=== PATIENT | male | born 1950 | race Caucasian/White ===

== ENCOUNTER → 2016-06-16 | Outpatient (CLI) | payer MEDICAID, MEDICARE | LOC: RAD 13:48 | PROVIDERS: ATTEND Nurse Practitioner Adult Health | DX: R05 Cough (principal) | CPT/HCPCS: 71250 ==

== ENCOUNTER → 2016-09-30 | Outpatient (CLI) | payer MEDICARE ==
[2016-09-30 11:01] LABS: ABSOLUTE EOSINOPHILS # (AUTO) 0.1 10^3/uL (0.0-0.6); ABSOLUTE LYMPHOCYTES (AUTO) 3.4 10^3/uL (0.5-4.7); ABSOLUTE MONOCYTES (AUTO) 0.8 10^3/uL (0.1-1.4); ABSOLUTE NEUT (AUTO) 7.5 10^3/uL (1.7-8.2); BASOPHILS % (AUTO) 0.4 % (0-2); EOSINOPHILS % (AUTO) 0.7 % (0-6); HEMATOCRIT 51.8 % (37.9-51.0); HEMOGLOBIN 16.7 g/dL (13.5-17.0); HGB HCT DIFFERENCE -1.7; LYMPHOCYTES % (AUTO) 28.4 % (13-45); MEAN CORPUSCULAR HEMOGLOBIN 31.2 pg (27.0-33.4); MEAN CORPUSCULAR HGB CONC 32.2 g/dL (32.0-36.0); MEAN CORPUSCULAR VOLUME 97 fl (80-97); MONOCYTES % (AUTO) 6.9 % (3-13); RED BLOOD COUNT 5.35 10^6/uL (4.35-5.55); RED CELL DISTRIBUTION WIDTH 13.5 % (11.5-14.0); SEGMENTED NEUTROPHILS % (AUTO) 63.6 % (42-78); WHITE BLOOD COUNT 11.9 10^3/uL (4.0-10.5)
== END ==
LOC: OD 09:54
PROVIDERS: ATTEND Internal Medicine Pulmonary Disease
DX: R05 Cough (principal)
CPT/HCPCS: 36415; 85025

== ENCOUNTER 2016-10-05 21:17 | Observation (INO) | payer MEDICARE ==
[2016-10-05] MEDS ORDERED: MAGNESIUM SULFATE/D5W 100 ML IV PRN (21:55)
[2016-10-05] MEDS ORDERED: METHYLPREDNISOLONE INJ 125 MG/2 ML SDV IV ONE (21:55)
[2016-10-05] MEDS ORDERED: IPRATROPIUM/ALBUTEROL 0.5-2.5 MG/3 ML AMPUL NEB ONE ×3 (21:56)
--- NOTE | 2016-10-05 22:00 | ER Document Report ---
ED Respiratory Problem - General Chief Complaint: Shortness Of Breath Stated Complaint: SHORTNESS OF BREATH Time Seen by Provider: 10/05/16 21:49 Notes: Patient is a 66-year-old with a history of tobacco abuse and COPD that comes emergency department for increasing difficulty breathing, tightness in the chest , and cough worsening today. He wears 2 L nc at home at night and PRN during the day. Patient denies fever. Patient states that he has been taking breathing treatments at home without improvement. He denies chest pain, vomiting , abdominal pain. He comes from home. Only other past medical history reported is bladder cancer, not on chemotherapy. TRAVEL OUTSIDE OF THE [place] IN LAST 30 DAYS: No - Related Data Allergies/Adverse Reactions: No Known Allergies Allergy (Unverified 04/10/11 06:36) Past Medical History - General Information source: Patient - Social History Smoking Status: Current Every Day Smoker Smoking Education Provided: Yes - <3 min Drug Abuse: None Lives with: Family Family History: None - Past Medical History Cardiac Medical History: Reports: Hx Hypercholesterolemia Pulmonary Medical History: Reports: Hx Asthma, Hx Bronchitis, Hx COPD, Hx Pneumonia, Hx Sleep Apnea Denies: Hx Tuberculosis Renal/ Medical History: Reports: Hx Kidney Stones. Denies: Hx Peritoneal Dialysis GI Medical History: Reports: Hx Gastroesophageal Reflux Disease, Hx Hiatal Hernia, Hx Ulcer Musculoskeltal Medical History: Reports Hx Arthritis Psychiatric Medical History: Denies: Hx Depression Past Surgical History: Reports: Hx Appendectomy, Hx Cholecystectomy, Hx Genitourinary Surgery - removal of bladder cancer x2. Denies: Hx Pacemaker - Immunizations Hx Diphtheria, Pertussis, Tetanus Vaccination: Yes Hx Pneumococcal Vaccination: 05/16/11 Review of Systems - Review of Systems Constitutional: No symptoms reported EENT: No symptoms reported Cardiovascular: See HPI Respiratory: See HPI Gastrointestinal: No symptoms reported Genitourinary: No symptoms reported Male Genitourinary: No symptoms reported Musculoskeletal: No symptoms reported Skin: No symptoms reported Hematologic/Lymphatic: No symptoms reported Neurological/Psychological: No symptoms reported Physical Exam - Vital signs Vitals: Temp Pulse Resp BP Pulse Ox 98.2 F 104 H 22 H 124/90 H 98 10/05/16 21:31 10/05/16 21:31 10/05/16 21:31 10/05/16 21:31 10/05/16 21:31 Interpretation: Normal - General General appearance: Anxious In distress: Mild - HEENT Head: Normocephalic, Atraumatic Eyes: Normal Pupils: PERRL - Respiratory Respiratory status: Respiratory distress, Labored Chest status: Accessory muscle use, Prolonged expirations Breath sounds: Decreased air movement - very decreased bilaterally, Nonproductive cough, Rhonchi, Wheezing Chest palpation: Normal - Cardiovascular Rhythm: Regular, Tachycardia Heart sounds: Normal auscultation, S1 appreciated, S2 appreciated Murmur: No - Abdominal Inspection: Normal Distension: No distension Bowel sounds: Normal Tenderness: Nontender Organomegaly: No organomegaly - Back Back: Normal, Nontender - Extremities General upper extremity: Normal inspection, Nontender, Normal color, Normal ROM , Normal temperature General lower extremity: Normal inspection, Nontender, Normal color, Normal ROM , Normal temperature, Normal weight bearing. No: Abril's sign - Neurological Neuro grossly intact: Yes Cognition: Normal Orientation: AAOx4 Demetri Coma Scale Eye Opening: Spontaneous [place] Coma Scale Verbal: Oriented Demetri Coma Scale Motor: Obeys Commands [place] Coma Scale Total: 15 Speech: Normal Motor strength normal: LUE, RUE, LLE, RLE Sensory: Normal - Skin Skin Temperature: Warm Skin Moisture: Dry Skin Color: Normal Course - Re-evaluation Re-evalutation: Patient initially in mild respiratory distress with tachypnea, oxygen level at about 93% on 3 L, wheezing and rhonchi throughout lung garza. Patient with very labored breathing, using accessory muscles. Very decreased breath sounds bilaterally. After DuoNeb, magnesium, Solu-Medrol patient with some improvement but still has labored breathing on examination and actually appears to have increased tachypnea and distress. Patient placed on BiPAP therapy, will monitor closely. Breath sounds have improved, now moving air better. CBC unremarkable, chemistry unremarkable, CK-MB is somewhat elevated as well as CK, however his previous CK-MB was significantly more elevated. Chest x-ray with no pneumonia. Troponin negative. Venous blood gas is unremarkable. On BiPAP patient began to improve, eventually tachypnea and labored breathing completely resolved and patient became very comfortable. Discussed with Dr. Mckeon. Patient was discussed with Dr. Best, request cycled enzymes because of elevated CK-MB. CK-MB is downtrending. Patient will be admitted to the [facility] for telemetry. Patient is very agreeable with this, states he is uncomfortable going home. - Vital Signs Vital signs: Temp Pulse Resp BP Pulse Ox 98.2 F 104 H 20 112/86 H 97 10/05/16 21:31 10/05/16 21:31 10/06/16 03:01 10/06/16 03:01 10/06/16 04:45 - Laboratory Result Diagrams: 10/05/16 22:15 10/05/16 21:40 Laboratory results interpreted by me: 10/05/16 10/05/16 10/05/16 21:40 21:40 23:29 BUN 21 H Est GFR (Non-Af Amer) 59 L Creatine Kinase 260 H 239 H CK-MB (CK-2) 9.98 H 10/05/16 23:29 BUN Est GFR (Non-Af Amer) Creatine Kinase CK-MB (CK-2) 8.09 H Critical Care Note - Critical Care Note Total time excluding time spent on procedures (mins): 31 - respiratory distress , COPD exacerbation Comments: Please allow 31 minutes of critical care time for evaluation and treatment of patient with respiratory distress, COPD exacerbation. Treatment with DuoNeb's, Solu-Medrol, magnesium, oxygen, BiPAP therapy, multiple evaluations, consultation and admission to the hospital. Discharge - Discharge Clinical Impression: COPD exacerbation, Wheezing, Respiratory distress Disposition: ADMITTED OBSERVATION Admitting Provider: Hospitalist Unit Admitted: Telemetry
--- NOTE | 2016-10-05 22:04 | RADIOLOGY REPORT (SQ) ---
EXAM DESCRIPTION: CHEST PA/LAT COMPLETED DATE/TIME: 10/05/2016 9:48 pm REASON FOR STUDY: shortness of breath COMPARISON: 01/26/2016 NUMBER OF VIEWS: Two view. TECHNIQUE: Frontal and lateral radiographic views of the chest acquired. LIMITATIONS: None. FINDINGS: LUNGS AND PLEURA: Small nodular densities overlying the mid lung garza are stable in most likely prominent nipple shadows. There is hyperexpansion and flattening of the hemidiaphragms. MEDIASTINUM AND HILAR STRUCTURES: No masses. No contour abnormalities. HEART AND VASCULAR STRUCTURES: Heart normal in size and contour. No evidence for failure. BONES: No acute findings. HARDWARE: None in the chest. OTHER: No other significant finding. IMPRESSION: COPD. NO ACUTE RADIOGRAPHIC FINDING IN THE CHEST. TECHNICAL DOCUMENTATION: JOB ID: [id number] [employer]- All Rights Reserved
[2016-10-05 22:12] LABS: ALANINE AMINOTRANSFERASE 49 U/L (21-72); ALBUMIN 4.2 g/dL (3.5-5.0); ALKALINE PHOSPHATASE 89 U/L (38-126); ANION GAP 12 (5-19); ASPARTATE AMINO TRANSFERASE 33 U/L (17-59); BILIRUBIN,DIRECT 0.3 mg/dL (0.0-0.4); BILIRUBIN,TOTAL 0.7 mg/dL (0.2-1.3); BLOOD UREA NITROGEN 21 mg/dL (7-20); CALCIUM 9.9 mg/dL (8.4-10.2); CARBON DIOXIDE 30 mmol/L (22-30); CHLORIDE 102 mmol/L (98-107); CREATINE KINASE 260 U/L (55-170); CREATININE RESULT 1.23 mg/dL (0.52-1.25); GLUCOSE 94 mg/dL (75-110); POTASSIUM 4.5 mmol/L (3.6-5.0); SODIUM 143.7 mmol/L (137-145); TOTAL PROTEIN 7.1 g/dL (6.3-8.2)
[2016-10-05 22:24] LABS: CREATINE KINASE MB 9.98 ng/mL (<4.55)
[2016-10-05 22:25] LABS: TROPONIN I < 0.012 ng/mL
[2016-10-05 22:32] LABS: VENOUS BLOOD BASE EXCESS 3.3 mmol/L; VENOUS BLOOD HCO3 29.8 mmol/L (20-32); VENOUS BLOOD PCO2 51.9 mmHg (35-63); VENOUS BLOOD PH 7.38 (7.30-7.42)
[2016-10-05 22:33] LABS: ABSOLUTE BASOPHILS # (AUTO) 0.1 10^3/uL (0.0-0.2); ABSOLUTE EOSINOPHILS # (AUTO) 0.1 10^3/uL (0.0-0.6); ABSOLUTE LYMPHOCYTES (AUTO) 2.4 10^3/uL (0.5-4.7); ABSOLUTE MONOCYTES (AUTO) 0.8 10^3/uL (0.1-1.4); BASOPHILS % (AUTO) 0.6 % (0-2); EOSINOPHILS % (AUTO) 0.8 % (0-6); HEMOGLOBIN 15.9 g/dL (13.5-17.0); HGB HCT DIFFERENCE 0.7; LYMPHOCYTES % (AUTO) 25.9 % (13-45); MEAN CORPUSCULAR HEMOGLOBIN 31.7 pg (27.0-33.4); MEAN CORPUSCULAR HGB CONC 33.8 g/dL (32.0-36.0); MEAN CORPUSCULAR VOLUME 94 fl (80-97); MONOCYTES % (AUTO) 8.1 % (3-13); RED BLOOD COUNT 5.02 10^6/uL (4.35-5.55); RED CELL DISTRIBUTION WIDTH 13.2 % (11.5-14.0); SEGMENTED NEUTROPHILS % (AUTO) 64.6 % (42-78); WHITE BLOOD COUNT 9.3 10^3/uL (4.0-10.5)
[2016-10-06] MEDS ORDERED: LEVOFLOXACIN 750 MG/D5W RTU 150 ML IV ONE (00:02)
[2016-10-06 01:51] LABS: CREATINE KINASE MB 8.09 ng/mL (<4.55)
[2016-10-06 01:55] LABS: TROPONIN I < 0.012 ng/mL
[2016-10-06] MEDS ORDERED: LACTULOSE SYRUP 20 GM/30 ML UDCUP PO PRN (02:24)
[2016-10-06] MEDS ORDERED: GUAIFENESIN SYRP 200 MG/10 ML UDC PO PRN (02:24)
[2016-10-06] MEDS ORDERED: IPRATROPIUM/ALBUTEROL 0.5-2.5 MG/3 ML AMPUL NEB PRN (02:24)
[2016-10-06] MEDS ORDERED: HYDRALAZINE HCL INJ/PF 20 MG/1 ML SDV IV PRN (02:24)
[2016-10-06] MEDS ORDERED: NICOTINE 7 MG/24 HR PATCH.TD24 TD SCH (02:30)
[2016-10-06] MEDS ORDERED: FLUTICASONE NASAL SPRAY 50 MCG/SPRY 120 SPRAY/16 GM NASL SCH (03:00)
[2016-10-06] MEDS ORDERED: FLUTICASONE NASAL SPRAY 50 MCG/SPRY 120 SPRAY/16 GM NASL ONE (03:15)
[2016-10-06] MEDS ORDERED: BUDESONIDE/FORMOTEROL 160-4.5 MCG 60 PUFF/6 GM MDI IH SCH ×2 (03:15→18:00)
[2016-10-06] MEDS ORDERED: BUDESONIDE/FORMOTEROL 160-4.5 MCG 60 PUFF/6 GM MDI IH ONE ×2 (03:15→03:27)
[2016-10-06] MEDS ORDERED: FLUTICASONE NASAL SPRAY 50 MCG/SPRY 120 SPRAY/16 GM ONE (03:26)
[2016-10-06] MEDS ORDERED: NICOTINE 7 MG/24 HR PATCH.TD24 ONE (03:26)
[2016-10-06] MEDS: ACETAMINOPHEN 325 MG TABLET PO PRN ×2 (03:45→13:53)
--- NOTE | 2016-10-06 06:30 | PDOC H&P ---
History of Present Illness Admission Date/PCP: 10/06/16 02:24 Patient complains of: Shortness of breath History of Present Illness: MANI FLYNN is a 66 year old male with a past medical history of COPD, chronic bronchitis, tobacco dependence, bipolar disorder and chronic pain. He been in his usual state of health until approximately 24 hours prior to presentation with excessive nonproductive cough and shortness of breath prompting his evaluation in the emergency room where he felt to have a COPD exacerbation with early pneumonia he started on empiric antibiotics for the hospital for admission. Patient denies influenza or Pneumovax. Denies recent changes in medications, infectious contacts but admits persistent smoking. Denies chest pain palpitations nausea vomiting. Past Medical History Cardiac Medical History: Reports: Hyperlipidema Pulmonary Medical History: Reports: Asthma, Bronchitis, Chronic Obstructive Pulmonary Disease (COPD), Pneumonia, Sleep Apnea Denies: Tuberculosis GI Medical History: Reports: Gastroesophageal Reflux Disease, Hiatal Hernia Musculoskeltal Medical History: Reports: Arthritis Psychiatric Medical History: Reports: Attention Deficit Hyperactivity Disorder, Bipolar Disorder, Tobacco Dependency Denies: Depression Past Surgical History Past Surgical History: Reports: Appendectomy, Cholecystectomy Denies: Pacemaker Social History Information Source: Patient, [facility] Records Lives with: Family Smoking Status: Current Every Day Smoker Cigarettes Packs Per Day: 0.3 Number of Years Smokin Frequency of Alcohol Use: Occasional Hx Recreational Drug Use: No Hx Prescription Drug Abuse: No - Advance Directive Resuscitation Status: Full Code Family History Family History: COPD, Hypertension Parental Family History Reviewed: Yes Children Family History Reviewed: Yes Sibling(s) Family History Reviewed.: Yes Medication/Allergy Home Medications: Budesonide/Formoterol Fumarate [Symbicort HFA 160-4.5 mcg Inhaler 6 gm] 2 puff IH Q12H 04/10/11 Dextroamphetamine/Amphetamine [Adderall 30 mg Tablet] 30 mg PO DAILY 05/03/13 Albuterol Sulfate [Proair HFA Inhalation Aerosol 8.5 gm MDI] 2 puff IH Q4HP PRN #1 hfa.aer.ad 05/04/13 Ipratropium/Albuterol Sulfate [Combivent Respimat 4 gm Mdi] 1 puff IH Q8 #1 aer.w.adap 05/04/13 Levofloxacin [Levaquin 500 mg Tablet] 500 mg PO DAILY #0 tablet 05/13/13 Nicotine [Nicoderm 7 mg/24 Hr Transdermal Patch] 1 each TD DAILY #14 patch.td24 05/13/13 Prednisone [Deltasone 20 mg Tablet] 40 mg PO DAILY #7 tablet 05/13/13 Allergies/Adverse Reactions: No Known Allergies Allergy (Unverified 04/10/11 06:36) Review of Systems Constitutional: ABSENT: chills, fever(s), headache(s), weight gain, weight loss Eyes: ABSENT: visual disturbances Ears: ABSENT: hearing changes Cardiovascular: ABSENT: chest pain, dyspnea on exertion, edema, orthropnea, palpitations Respiratory: ABSENT: cough, hemoptysis Gastrointestinal: ABSENT: abdominal pain, constipation, diarrhea, hematemesis, hematochezia, nausea, vomiting Genitourinary: ABSENT: dysuria, hematuria Musculoskeletal: ABSENT: joint swelling Integumentary: ABSENT: rash, wounds Neurological: ABSENT: abnormal gait, abnormal speech, confusion, dizziness, focal weakness, syncope Psychiatric: ABSENT: anxiety, depression, homidical ideation, suicidal ideation Endocrine: ABSENT: cold intolerance, heat intolerance, polydipsia, polyuria Hematologic/Lymphatic: ABSENT: easy bleeding, easy bruising Physical Exam Vital Signs: Temp Pulse Resp BP Pulse Ox 97.8 F 88 20 130/85 H 96 10/06/16 04:50 10/06/16 04:50 10/06/16 04:50 10/06/16 04:50 10/06/16 04:50 Intake & Output 10/04/16 10/05/16 10/06/16 11:59 11:59 11:59 Intake Total 10 Balance 10 General appearance: PRESENT: cooperative, disheveled, mild distress, thin Head exam: PRESENT: atraumatic, normocephalic Eye exam: PRESENT: conjunctiva pink, EOMI, PERRLA. ABSENT: scleral icterus Ear exam: PRESENT: normal external ear exam Mouth exam: PRESENT: moist, tongue midline Neck exam: ABSENT: carotid bruit, JVD, lymphadenopathy, thyromegaly Respiratory exam: PRESENT: accessory muscle use, crackles, decreased breath sounds, prolonged expiratory phas, retraction, rhonchi, tachypnea. ABSENT: stridor, wheezes Cardiovascular exam: PRESENT: RRR. ABSENT: diastolic murmur, rubs, systolic murmur Pulses: PRESENT: normal dorsalis pedis pul GI/Abdominal exam: PRESENT: normal bowel sounds, soft. ABSENT: distended, guarding, mass, organolmegaly, rebound, tenderness Rectal exam: PRESENT: deferred Extremities exam: PRESENT: full ROM. ABSENT: calf tenderness, clubbing, pedal edema Neurological exam: PRESENT: alert, awake, oriented to person, oriented to place , oriented to time, oriented to situation, CN II-XII grossly intact. ABSENT: motor sensory deficit Psychiatric exam: PRESENT: appropriate affect, normal mood. ABSENT: homicidal ideation, suicidal ideation Skin exam: PRESENT: dry, intact, warm. ABSENT: cyanosis, rash Results Impressions: Chest X-Ray 10/05/16 21:34 IMPRESSION: COPD. NO ACUTE RADIOGRAPHIC FINDING IN THE CHEST. Assessment & Plan - Diagnosis (1) Pneumonia Is this a current diagnosis for this admission?: YesPlan: Acute problem. Patient has audible rhonchi at bedside with poor forced expiratory volume. He is admitted to a monitored bed with pneumonia care set empiric antibiotics and stress dose steroids. Follow-up CBC and consideration of CT chest for history of tobacco with risk of lung cancer and atypical pneumonia (2) Tobacco dependence Is this a current diagnosis for this admission?: YesPlan: Tobacco Dependence patient received tobacco cessation counseling and offered nicotine replacement options (3) COPD exacerbation Is this a current diagnosis for this admission?: YesPlan: Albuterol, Atrovent, flutter valve and incentive spirometry - Inpatient Certification Medical Necessity: Need Close Monitoring Due to Risk of Patient Decompensation
[2016-10-06] MEDS: METHYLPREDNISOLONE INJ 125 MG/2 ML SDV IV SCH ×3 (06:38→21:52)
[2016-10-06] MEDS: HEPARIN SOD (PORCINE) 5,000 UNIT/ML 1 ML SYRINGE SUBCUT SCH ×3 (06:42→21:50)
[2016-10-06 07:02] LABS: ABSOLUTE LYMPHOCYTES (AUTO) 0.4 10^3/uL (0.5-4.7); BASOPHILS % (AUTO) 0.1 % (0-2); HEMATOCRIT 45.2 % (37.9-51.0); HEMOGLOBIN 15.5 g/dL (13.5-17.0); HGB HCT DIFFERENCE 1.3; LYMPHOCYTES % (AUTO) 5.6 % (13-45); MEAN CORPUSCULAR HEMOGLOBIN 32.2 pg (27.0-33.4); MEAN CORPUSCULAR HGB CONC 34.3 g/dL (32.0-36.0); MEAN CORPUSCULAR VOLUME 94 fl (80-97); MONOCYTES % (AUTO) 0.7 % (3-13); RED BLOOD COUNT 4.82 10^6/uL (4.35-5.55); RED CELL DISTRIBUTION WIDTH 13.4 % (11.5-14.0); SEGMENTED NEUTROPHILS % (AUTO) 93.6 % (42-78); WHITE BLOOD COUNT 6.4 10^3/uL (4.0-10.5)
[2016-10-06 07:19] LABS: ANION GAP 12 (5-19); BLOOD UREA NITROGEN 21 mg/dL (7-20); CALCIUM 9.4 mg/dL (8.4-10.2); CARBON DIOXIDE 24 mmol/L (22-30); CHLORIDE 103 mmol/L (98-107); GLUCOSE 146 mg/dL (75-110); SODIUM 138.6 mmol/L (137-145)
[2016-10-06 07:20] LABS: POTASSIUM 4.7 mmol/L (3.6-5.0)
--- NOTE | 2016-10-06 07:52 | EKG REPORT ---
SEVERITY:- OTHERWISE NORMAL ECG - SINUS RHYTHM BORDERLINE RIGHT AXIS DEVIATION : Confirmed by: Phil De Leon MD 06-Oct-2016 07:52:12
[2016-10-06] MEDS: IPRATROPIUM/ALBUTEROL 0.5-2.5 MG/3 ML AMPUL NEB SCH ×3 (09:06→20:21)
[2016-10-06] MEDS: FLUTICASONE NASAL SPRAY 50 MCG/SPRY 120 SPRAY/16 GM NASL SCH ×2 (09:42→21:52)
[2016-10-06] MEDS: NICOTINE 7 MG/24 HR PATCH.TD24 TD SCH (09:42)
[2016-10-06] MEDS: GUAIFENESIN 600 MG TABLET.SA PO SCH ×2 (09:42→21:52)
[2016-10-06] MEDS: BUDESONIDE/FORMOTEROL 160-4.5 MCG 60 PUFF/6 GM MDI IH SCH ×2 (09:48→18:35)
[2016-10-06] MEDS ORDERED: FUROSEMIDE 20 MG TABLET PO PRN (11:49)
[2016-10-06] MEDS ORDERED: MONTELUKAST SODIUM 10 MG TABLET PO SCH (18:00)
[2016-10-06] MEDS ORDERED: LEVOFLOXACIN 750 MG/D5W RTU 750 MG/150 ML RTUPB IV SCH (22:00)
[2016-10-07] MEDS: IPRATROPIUM/ALBUTEROL 0.5-2.5 MG/3 ML AMPUL NEB SCH ×2 (01:21→08:48)
[2016-10-07 05:12] LABS: HEMATOCRIT 43.1 % (37.9-51.0); HEMOGLOBIN 14.5 g/dL (13.5-17.0); HGB HCT DIFFERENCE 0.4; MEAN CORPUSCULAR HEMOGLOBIN 31.5 pg (27.0-33.4); MEAN CORPUSCULAR HGB CONC 33.7 g/dL (32.0-36.0); MEAN CORPUSCULAR VOLUME 94 fl (80-97); RED BLOOD COUNT 4.61 10^6/uL (4.35-5.55); RED CELL DISTRIBUTION WIDTH 13.1 % (11.5-14.0)
[2016-10-07 05:20] LABS: ANION GAP 11 (5-19); BLOOD UREA NITROGEN 19 mg/dL (7-20); CALCIUM 9.8 mg/dL (8.4-10.2); CARBON DIOXIDE 24 mmol/L (22-30); CHLORIDE 107 mmol/L (98-107); CREATININE RESULT 0.81 mg/dL (0.52-1.25); GLUCOSE 135 mg/dL (75-110); POTASSIUM 4.5 mmol/L (3.6-5.0); SODIUM 141.5 mmol/L (137-145)
[2016-10-07] MEDS: METHYLPREDNISOLONE INJ 125 MG/2 ML SDV IV SCH (05:24)
[2016-10-07] MEDS: HEPARIN SOD (PORCINE) 5,000 UNIT/ML 1 ML SYRINGE SUBCUT SCH (05:24)
[2016-10-07] MEDS ORDERED: BUDESONIDE/FORMOTEROL 160-4.5 MCG 60 PUFF/6 GM MDI IH SCH (06:00)
[2016-10-07 06:08] LABS: BAND NEUTROPHILS % (MANUAL) 1 % (3-5); BASOPHILS % (MANUAL) 0 % (0-2); EOSINOPHILS % (MANUAL) 0 % (0-6); LYMPHOCYTES % (MANUAL) 2 % (13-45); TOTAL CELLS COUNTED 100
[2016-10-07 06:09] LABS: OVALOCYTES SLIGHT; POIKILOCYTOSIS SLIGHT; TOXIC GRANULATION SLIGHT; TOXIC VACUOLATION PRESENT
[2016-10-07 07:05] LABS: WHITE BLOOD COUNT 19.9 10^3/uL (4.0-10.5)
[2016-10-07 07:48] VITALS: BP 108/68
[2016-10-07] MEDS: GUAIFENESIN 600 MG TABLET.SA PO SCH (09:09)
[2016-10-07] MEDS: FLUTICASONE NASAL SPRAY 50 MCG/SPRY 120 SPRAY/16 GM NASL SCH (09:09)
[2016-10-07] MEDS: NICOTINE 7 MG/24 HR PATCH.TD24 TD SCH (09:10)
[2016-10-07] MEDS ORDERED: ASPIRIN 81 MG TABLET, ENT COATED PO SCH (10:00)
[2016-10-07] MEDS ORDERED: PREDNISONE 20 MG TABLET PO SCH (10:00)
--- NOTE | 2016-10-07 15:25 | PDOC DISCHARGE SUMMARY ---
General - Admit/Disc Date/PCP Admission Date/Primary Care Provider: 10/06/16 02:24 Discharge Date: 10/07/16 - Discharge Diagnosis (1) COPD exacerbation Is this a current diagnosis for this admission?: YesSummary: Continue Levaquin daily for the next 5 days. Prednisone 20 mg twice daily for the next 5 days. The patient was counseled on the need to not smoke. (2) Wheezing Is this a current diagnosis for this admission?: YesSummary: Resolved (3) Tobacco dependence Is this a current diagnosis for this admission?: YesSummary: Counseled. He has no desire to quit smoking. (5) Respiratory distress Is this a current diagnosis for this admission?: YesSummary: Initially on presentation. Resolved quickly with IV steroids and nebulizer treatments - Additional Information Resuscitation Status: Full Code Discharge Diet: Regular Discharge Activity: Activity As Tolerated, Balance Activity w/Rest, Keep Legs Elevated Home Medications: Albuterol Sulfate [Proair HFA] 2 puff IH Q4HP PRN 10/06/16 Albuterol Sulfate [Ventolin 0.083% Neb 2.5 mg/3 mL Ampul] 3 ml NEB RTQ4HP PRN Aspirin [Adult Low Dose Aspirin EC] 81 mg PO DAILY 10/06/16 Budesonide/Formoterol Fumarate [Symbicort HFA 160-4.5 mcg Inhaler 6 gm] 2 puff IH BID 10/06/16 Dextroamphetamine/Amphetamine [Adderall 20 mg Tablet] 20 mg PO NOON 10/06/16 Dextroamphetamine/Amphetamine [Adderall XR 25 mg Capsule] 25 mg PO QAM 10/06/16 Furosemide [Lasix 20 mg Tablet] 20 mg PO QAMP PRN 10/06/16 Montelukast Sodium [Singulair 10 mg Tablet] 10 mg PO QPM 10/06/16 Gabapentin 300 mg PO TID #90 capsule 10/07/16 Levofloxacin [Levaquin 750 mg Tablet] 750 mg PO DAILY #5 tablet 10/07/16 Prednisone [Deltasone] 20 mg PO BID #10 tablet 10/07/16 History of Present Illness Patient complains of: Cough, Shortness of breath and wheezing History of Present Illness: MANI FLYNN is a 66 year old male with a past medical history of COPD, chronic bronchitis, tobacco dependence, bipolar disorder and chronic pain. He been in his usual state of health until approximately 24 hours prior to presentation with excessive nonproductive cough and shortness of breath prompting his evaluation in the emergency room where he felt to have a COPD exacerbation with early pneumonia he started on empiric antibiotics for the hospital for admission. Patient denies influenza or Pneumovax. Denies recent changes in medications, infectious contacts but admits persistent smoking. Denies chest pain palpitations nausea vomiting. Hospital Course Hospital Course: Patient was admitted to telemetry. He was started on broad-spectrum IV antibiotics, steroids and nebulizer treatments. His wheezing improved quickly with IV steroids and nebulizers. Chest x-ray showed no infiltrates or effusions. He had no leukocytosis. Will be weaned off oxygen quickly. This morning his wheezing is resolved. Oxygen saturation on room air is 94%. He is requesting to be discharged home. He was counseled on need to quit smoking. He states the present time he has no interest in doing so. Physical Exam Vital Signs: Temp Pulse Resp BP Pulse Ox 97.3 F 83 20 108/68 94 10/07/16 10:38 10/07/16 10:38 10/07/16 10:38 10/07/16 10:38 10/07/16 10:38 Intake & Output 10/06/16 10/07/16 10/08/16 06:59 06:59 06:59 Intake Total 370 1446 Output Total 1 Balance 370 1445 Weight 81.1 kg 80.3 kg General appearance: PRESENT: no acute distress, well-developed, well-nourished Head exam: PRESENT: atraumatic, normocephalic Eye exam: PRESENT: conjunctiva pink, EOMI, PERRLA. ABSENT: scleral icterus Ear exam: PRESENT: normal external ear exam Mouth exam: PRESENT: moist, tongue midline Neck exam: ABSENT: carotid bruit, JVD, lymphadenopathy, thyromegaly Respiratory exam: PRESENT: rhonchi, symmetrical, unlabored Cardiovascular exam: PRESENT: RRR. ABSENT: diastolic murmur, rubs, systolic murmur Pulses: PRESENT: normal dorsalis pedis pul Vascular exam: PRESENT: normal capillary refill GI/Abdominal exam: PRESENT: normal bowel sounds, soft. ABSENT: distended, guarding, mass, organolmegaly, rebound, tenderness Rectal exam: PRESENT: deferred Extremities exam: PRESENT: full ROM. ABSENT: calf tenderness, clubbing, pedal edema Musculoskeletal exam: PRESENT: ambulatory, full ROM, normal inspection Neurological exam: PRESENT: alert, awake, oriented to person, oriented to place , oriented to time, oriented to situation, CN II-XII grossly intact. ABSENT: motor sensory deficit Psychiatric exam: PRESENT: appropriate affect, normal mood. ABSENT: homicidal ideation, suicidal ideation Skin exam: PRESENT: dry, intact, warm. ABSENT: cyanosis, rash Results Laboratory Results: 10/07/16 04:39 10/07/16 04:39 10/07/16 10/07/16 04:39 04:39 WBC 19.9 H D RBC 4.61 Hgb 14.5 Hct 43.1 MCV 94 MCH 31.5 MCHC 33.7 RDW 13.1 Plt Count 162 Seg Neutrophils % Not Reportable Lymphocytes % Not Reportable Monocytes % Not Reportable Eosinophils % Not Reportable Basophils % Not Reportable Absolute Neutrophils Not Reportable Absolute Lymphocytes Not Reportable Absolute Monocytes Not Reportable Absolute Eosinophils Not Reportable Absolute Basophils Not Reportable Sodium 141.5 Potassium 4.5 Chloride 107 Carbon Dioxide 24 Anion Gap 11 BUN 19 Creatinine 0.81 Est GFR ( Amer) > 60 Est GFR (Non-Af Amer) > 60 Glucose 135 H Calcium 9.8 Impressions: Chest X-Ray 10/05/16 21:34 IMPRESSION: COPD. NO ACUTE RADIOGRAPHIC FINDING IN THE CHEST. Qualifiers PATEINT BEING DISCHARGED WITH ANY OF THE FOLLOWING DIAGNOSIS?: No Plan Discharge Plan: Home with Time Spent: Less than 30 Minutes
== END 2016-10-07 11:14 | disposition home or self-care (01) ==
LOC: ER 21:17 → EH 10-06 02:24 → UNDOADMOB 10-06 02:31 → EH 10-06 02:31 → 3W 10-06 04:44 → 4S 10-07 02:04
PROVIDERS: ADMIT Internal Medicine; ATTEND Internal Medicine
DX: J44.1 Chronic obstructive pulmonary disease with (acute) exacerbation (principal); R06.00 Dyspnea, unspecified; F17.210 Nicotine dependence, cigarettes, uncomplicated; Z71.6 Tobacco abuse counseling; F90.9 Attention-deficit hyperactivity disorder, unspecified type; Z79.899 Other long term (current) drug therapy; Z79.82 Long term (current) use of aspirin; Z79.52 Long term (current) use of systemic steroids; Z90.49 Acquired absence of other specified parts of digestive tract; Z82.49 Family history of ischemic heart disease and other diseases of the circulatory system; Z82.5 Family history of asthma and other chronic lower respiratory diseases; Z99.81 Dependence on supplemental oxygen; Z85.51 Personal history of malignant neoplasm of bladder
CPT/HCPCS: 93005; 99291; 96375; 96365; 36415 ×3; 87040; 82553 ×2; 82550 ×2; 85025 ×3; 80048 ×2; 80053; 84484 ×2; 82803; 83880; 71020; 94799; 93010; 94660; 94667; 94668 ×2; 94640 ×2; G0378 ×3; A9270 ×11; J1644 ×2; J3490 ×5; J2930 ×3; J3475; J1956; J7512; J7620

== ENCOUNTER 2017-01-16 20:50 | Inpatient (IN) | payer MEDICARE ==
[2017-01-16] MEDS ORDERED: IPRATROPIUM/ALBUTEROL 0.5-2.5 MG/3 ML AMPUL NEB ONE (20:53)
[2017-01-16] MEDS ORDERED: METHYLPREDNISOLONE INJ 125 MG/2 ML SDV IV ONE (20:53)
[2017-01-16] MEDS: ALBUTEROL SULFATE 0.083% NEB 2.5 MG/3 ML AMPUL NEB SCH (21:00)
[2017-01-16 21:12] LABS: ABSOLUTE BASOPHILS # (AUTO) 0.1 10^3/uL (0.0-0.2); ABSOLUTE EOSINOPHILS # (AUTO) 0.1 10^3/uL (0.0-0.6); ABSOLUTE LYMPHOCYTES (AUTO) 2.8 10^3/uL (0.5-4.7); ABSOLUTE MONOCYTES (AUTO) 0.5 10^3/uL (0.1-1.4); ABSOLUTE NEUT (AUTO) 3.6 10^3/uL (1.7-8.2); BASOPHILS % (AUTO) 1.3 % (0-2); EOSINOPHILS % (AUTO) 1.4 % (0-6); HEMATOCRIT 45.2 % (37.9-51.0); HEMOGLOBIN 15.6 g/dL (13.5-17.0); HGB HCT DIFFERENCE 1.6; LYMPHOCYTES % (AUTO) 39.1 % (13-45); MEAN CORPUSCULAR HEMOGLOBIN 32.2 pg (27.0-33.4); MEAN CORPUSCULAR HGB CONC 34.5 g/dL (32.0-36.0); MEAN CORPUSCULAR VOLUME 94 fl (80-97); MONOCYTES % (AUTO) 7.5 % (3-13); RED BLOOD COUNT 4.83 10^6/uL (4.35-5.55); RED CELL DISTRIBUTION WIDTH 13.2 % (11.5-14.0); SEGMENTED NEUTROPHILS % (AUTO) 50.7 % (42-78); WHITE BLOOD COUNT 7.2 10^3/uL (4.0-10.5)
[2017-01-16 21:13] LABS: VENOUS BLOOD BASE EXCESS 6.4 mmol/L; VENOUS BLOOD HCO3 34.6 mmol/L (20-32); VENOUS BLOOD PCO2 64.3 mmHg (35-63); VENOUS BLOOD PH 7.35 (7.30-7.42)
--- NOTE | 2017-01-16 21:13 | ER Document Report ---
ED Respiratory Problem - General Chief Complaint: Breathing Difficulty Stated Complaint: DIFFICULTY BREaTHING Time Seen by Provider: 01/16/17 21:07 Mode of Arrival: Ambulatory Information source: Patient TRAVEL OUTSIDE OF THE [place] IN LAST 30 DAYS: No - HPI Patient complains to provider of: COPD, Short of breath Onset: This morning Duration: Continuous Quality of pain: No pain Severity: Moderate Context: Hx COPD Short of Breath: Moderate Sputum amount: None At home treatment: Bronchodilators, Oxygen Associated symptoms: Cough - not much more than usual. denies: Chills, Fever Similar symptoms previously: Yes - NOT RECENT Recently seen / treated by doctor: No Notes: SAYS HE'S BEEN COMOPLIANT W/ ALL MEDS - Related Data Allergies/Adverse Reactions: No Known Allergies Allergy (Unverified 04/10/11 06:36) Past Medical History - General Information source: Patient, Relative - Social History Smoking Status: Former Smoker Cigarette use (# per day): No Chew tobacco use (# tins/day): No Smoking Education Provided: No Frequency of alcohol use: Occasional Drug Abuse: None Lives with: Family Family History: COPD, Hypertension - Past Medical History Cardiac Medical History: Reports: Hx Hypercholesterolemia Pulmonary Medical History: Reports: Hx Asthma, Hx Bronchitis, Hx COPD, Hx Pneumonia, Hx Sleep Apnea Denies: Hx Tuberculosis Renal/ Medical History: Reports: Hx Kidney Stones. Denies: Hx Peritoneal Dialysis GI Medical History: Reports: Hx Gastroesophageal Reflux Disease, Hx Hiatal Hernia, Hx Ulcer Musculoskeltal Medical History: Reports Hx Arthritis Psychiatric Medical History: Reports: Hx Attention Deficit Hyperactivity Disorder, Hx Bipolar Disorder Denies: Hx Depression Past Surgical History: Reports: Hx Appendectomy, Hx Cholecystectomy, Hx Genitourinary Surgery - removal of bladder cancer x2. Denies: Hx Pacemaker - Immunizations Hx Diphtheria, Pertussis, Tetanus Vaccination: Yes Hx Pneumococcal Vaccination: 05/16/11 Review of Systems - Review of Systems Constitutional: No symptoms reported. denies: Chills, Fever EENT: No symptoms reported Cardiovascular: No symptoms reported Respiratory: See HPI Gastrointestinal: No symptoms reported Musculoskeletal: No symptoms reported Skin: No symptoms reported Neurological/Psychological: No symptoms reported Physical Exam - Vital signs Vitals: Temp Pulse Resp BP Pulse Ox 97.7 F 109 H 26 H 154/87 H 85 L 01/16/17 20:51 01/16/17 20:51 01/16/17 20:51 01/16/17 20:51 01/16/17 20:51 Interpretation: Hypertensive, Tachycardic, Hypoxic, Tachypneic - General General appearance: Alert In distress: Mild - HEENT Head: Normocephalic Eyes: Normal Conjunctiva: Normal Ears: Normal Nasal: Normal Mouth/Lips: Normal Mucous membranes: Normal - Respiratory Respiratory status: Respiratory distress Chest status: Nontender Breath sounds: Wheezing - MODERATE, EXP. - Cardiovascular Rhythm: Regular, Tachycardia Heart sounds: Normal auscultation Murmur: No - Abdominal Inspection: Normal Distension: No distension - Extremities General upper extremity: Normal inspection General lower extremity: Normal inspection. No: Edema - Neurological Neuro grossly intact: Yes Cognition: Normal Orientation: AAOx4 - Psychological Associated symptoms: Normal affect, Normal mood - Skin Skin Temperature: Warm Skin Moisture: Dry Skin Color: Normal Skin Turgor: Elastic Course - Vital Signs Vital signs: Temp Pulse Resp BP Pulse Ox 97.7 F 89 20 139/100 H 99 01/16/17 20:52 01/16/17 21:42 01/16/17 21:42 01/16/17 21:09 01/16/17 21:09 - Laboratory Result Diagrams: 01/16/17 21:01 01/16/17 21:01 Laboratory results interpreted by me: 01/16/17 01/16/17 01/16/17 21:01 21:01 21:01 VBG pCO2 64.3 H VBG HCO3 34.6 H Glucose 137 H Creatine Kinase 183 H CK-MB (CK-2) 6.98 H - Diagnostic Test Radiology reviewed: Image reviewed, Reports reviewed - EKG Interpretation by Me EKG shows normal: Sinus rhythm Rate: Tachycardia [place]/QRS: Right axis deviation, RBBB - INCOMPLETE When compared to previous EKG there are: Previous EKG unavailable - Consults DR. DRISCOLL Time consulted: 22:26 Consulted provider: will come to ER Discharge - Discharge Clinical Impression: COPD exacerbation Condition: Fair Disposition: ADMITTED INPATIENT Admitting Provider: Hospitalist Unit Admitted: Telemetry
[2017-01-16 21:26] LABS: ALANINE AMINOTRANSFERASE 31 U/L (21-72); ALBUMIN 4.2 g/dL (3.5-5.0); ALKALINE PHOSPHATASE 78 U/L (38-126); ANION GAP 14 (5-19); ASPARTATE AMINO TRANSFERASE 26 U/L (17-59); BILIRUBIN,DIRECT 0.3 mg/dL (0.0-0.4); BILIRUBIN,TOTAL 0.4 mg/dL (0.2-1.3); BLOOD UREA NITROGEN 16 mg/dL (7-20); CALCIUM 9.6 mg/dL (8.4-10.2); CARBON DIOXIDE 29 mmol/L (22-30); CHLORIDE 99 mmol/L (98-107); CREATINE KINASE 183 U/L (55-170); GLUCOSE 137 mg/dL (75-110); POTASSIUM 3.9 mmol/L (3.6-5.0); SODIUM 142.3 mmol/L (137-145); TOTAL PROTEIN 6.8 g/dL (6.3-8.2)
[2017-01-16 21:39] LABS: CREATINE KINASE MB 6.98 ng/mL (<4.55)
[2017-01-16 21:40] LABS: TROPONIN I < 0.012 ng/mL
--- NOTE | 2017-01-16 21:47 | RADIOLOGY REPORT (SQ) ---
EXAM DESCRIPTION: CHEST SINGLE VIEW COMPLETED DATE/TIME: 01/16/2017 9:38 pm REASON FOR STUDY: respiratory distress COMPARISON: 10/05/2016. NUMBER OF VIEWS: One view. TECHNIQUE: Single frontal radiographic view of the chest acquired. LIMITATIONS: None. FINDINGS: LUNGS AND PLEURA: No opacities, masses or pneumothorax. No pleural effusion. Attenuated bl ood vessels and flattened sakina-diaphragms. MEDIASTINUM AND HILAR STRUCTURES: No masses. Contour normal. HEART AND VASCULAR STRUCTURES: Heart normal in size. Normal vasculature. BONES: No acute findings. HARDWARE: None in the chest. OTHER: No other significant finding. IMPRESSION: COPD. NO ACUTE RADIOGRAPHIC FINDING IN THE CHEST. TECHNICAL DOCUMENTATION: JOB ID: [id number] [employer]- All Rights Reserved
[2017-01-16] MEDS ORDERED: DILTIAZEM HCL 60 MG TABLET PO ONE (22:34)
[2017-01-16] MEDS ORDERED: ACETAMINOPHEN 325 MG TABLET PO PRN (22:35)
[2017-01-16] MEDS ORDERED: IPRATROPIUM/ALBUTEROL 0.5-2.5 MG/3 ML AMPUL NEB PRN (22:35)
[2017-01-16] MEDS ORDERED: CHLORPHENIRAMINE MALEATE 4 MG TABLET PO ONE (22:38)
[2017-01-16] MEDS ORDERED: AZITHROMYCIN INJ 500 MG VIAL IV PRN (22:52)
--- NOTE | 2017-01-16 23:30 | EKG REPORT ---
SEVERITY:- BORDERLINE ECG - SINUS TACHYCARDIA BORDERLINE RIGHT AXIS DEVIATION BORDERLINE INFERIOR Q WAVES : Confirmed by: Giselle Martinez 16-Jan-2017 23:29:16
[2017-01-16] MEDS ORDERED: CHLORPHENIRAMINE MALEATE 4 MG TABLET ONE (23:56)
[2017-01-16] MEDS ORDERED: FLUTICASONE NASAL SPRAY 50 MCG/SPRY 120 SPRAY/16 GM ONE (23:57)
[2017-01-17] MEDS: IPRATROPIUM/ALBUTEROL 0.5-2.5 MG/3 ML AMPUL NEB SCH ×2 (01:33→08:08)
[2017-01-17] MEDS: GUAIFENESIN SYRP 200 MG/10 ML UDC PO PRN ×3 (01:51→19:54)
--- NOTE | 2017-01-17 04:40 | PDOC H&P ---
History of Present Illness Admission Date/PCP: 01/16/17 22:35 Patient complains of: Shortness of breath History of Present Illness: MANI FLYNN is a 66 year old male with a past medical history of home oxygen dependent COPD, chronic bronchitis, tobacco dependence, bipolar disorder and chronic pain. He been in his usual state of health until approximately 48 hours prior to presentation with excessive nonproductive cough and shortness of breath prompting evaluation in the emergency room. He is found to have hypertension, tachycardia, tachypnea, hypoxia, hypercapnia bilateral wheezing and rhonchi. He started on empiric antibiotics steroids albuterol and Atrovent referred to the hospitalist for admission. Patient denies chest pain nausea or vomiting, URI or GERD, he admits to persistent tobacco abuse. Past Medical History Cardiac Medical History: Reports: Hyperlipidema Pulmonary Medical History: Reports: Asthma, Bronchitis, Chronic Obstructive Pulmonary Disease (COPD), Pneumonia, Sleep Apnea Denies: Tuberculosis GI Medical History: Reports: Gastroesophageal Reflux Disease, Hiatal Hernia Musculoskeltal Medical History: Reports: Arthritis Psychiatric Medical History: Reports: Attention Deficit Hyperactivity Disorder, Bipolar Disorder Denies: Depression Past Surgical History Past Surgical History: Reports: Appendectomy, Cholecystectomy Denies: Pacemaker Social History Lives with: Family Smoking Status: Current Every Day Smoker Cigarettes Packs Per Day: 0.5 Number of Years Smokin Frequency of Alcohol Use: Heavy Hx Recreational Drug Use: No Drugs: None Hx Prescription Drug Abuse: No - Advance Directive Resuscitation Status: Full Code Family History Family History: COPD, Hypertension Parental Family History Reviewed: Yes Children Family History Reviewed: Yes Sibling(s) Family History Reviewed.: Yes Medication/Allergy Home Medications: Albuterol Sulfate [Proair HFA] 2 puff IH Q4HP PRN 10/06/16 Albuterol Sulfate [Ventolin 0.083% Neb 2.5 mg/3 mL Ampul] 3 ml NEB RTQ4HP PRN Aspirin [Adult Low Dose Aspirin EC] 81 mg PO DAILY 10/06/16 Budesonide/Formoterol Fumarate [Symbicort HFA 160-4.5 mcg Inhaler 6 gm] 2 puff IH BID 10/06/16 Dextroamphetamine/Amphetamine [Adderall 20 mg Tablet] 20 mg PO NOON 10/06/16 Dextroamphetamine/Amphetamine [Adderall XR 25 mg Capsule] 25 mg PO QAM 10/06/16 Montelukast Sodium [Singulair 10 mg Tablet] 10 mg PO QPM 10/06/16 Gabapentin 300 mg PO TID #90 capsule 10/07/16 Allergies/Adverse Reactions: No Known Allergies Allergy (Verified 01/16/17 23:25) Review of Systems Constitutional: ABSENT: chills, fever(s), headache(s), weight gain, weight loss Eyes: ABSENT: visual disturbances Ears: ABSENT: hearing changes Cardiovascular: ABSENT: chest pain, dyspnea on exertion, edema, orthropnea, palpitations Respiratory: ABSENT: cough, hemoptysis Gastrointestinal: ABSENT: abdominal pain, constipation, diarrhea, hematemesis, hematochezia, nausea, vomiting Genitourinary: ABSENT: dysuria, hematuria Musculoskeletal: ABSENT: joint swelling Integumentary: ABSENT: rash, wounds Neurological: ABSENT: abnormal gait, abnormal speech, confusion, dizziness, focal weakness, syncope Psychiatric: ABSENT: anxiety, depression, homidical ideation, suicidal ideation Endocrine: ABSENT: cold intolerance, heat intolerance, polydipsia, polyuria Hematologic/Lymphatic: ABSENT: easy bleeding, easy bruising Physical Exam Vital Signs: Temp Pulse Resp BP Pulse Ox 98.2 F 78 18 119/79 95 01/17/17 03:40 01/17/17 03:40 01/17/17 03:40 01/17/17 03:40 01/17/17 03:40 General appearance: PRESENT: cooperative, mild distress, thin Head exam: PRESENT: atraumatic, normocephalic Eye exam: PRESENT: conjunctiva pink, EOMI, PERRLA. ABSENT: scleral icterus Ear exam: PRESENT: normal external ear exam Mouth exam: PRESENT: moist, tongue midline Neck exam: ABSENT: carotid bruit, JVD, lymphadenopathy, thyromegaly Respiratory exam: PRESENT: accessory muscle use, crackles, decreased breath sounds, prolonged expiratory phas, rales, retraction, rhonchi, symmetrical, tachypnea. ABSENT: stridor Cardiovascular exam: PRESENT: RRR. ABSENT: diastolic murmur, rubs, systolic murmur Pulses: PRESENT: normal dorsalis pedis pul Vascular exam: PRESENT: normal capillary refill GI/Abdominal exam: PRESENT: normal bowel sounds, soft. ABSENT: distended, guarding, mass, organolmegaly, rebound, tenderness Rectal exam: PRESENT: deferred Extremities exam: PRESENT: full ROM. ABSENT: calf tenderness, clubbing, pedal edema Neurological exam: PRESENT: alert, awake, oriented to person, oriented to place , oriented to time, oriented to situation, CN II-XII grossly intact. ABSENT: motor sensory deficit Psychiatric exam: PRESENT: appropriate affect, normal mood. ABSENT: homicidal ideation, suicidal ideation Skin exam: PRESENT: dry, intact, warm. ABSENT: cyanosis, rash Results Impressions: Chest X-Ray 01/16/17 20:51 IMPRESSION: COPD. NO ACUTE RADIOGRAPHIC FINDING IN THE CHEST. Assessment & Plan - Diagnosis (1) COPD exacerbation Is this a current diagnosis for this admission?: Yes Plan: Secondary to pneumonia. Complicated by persistent tobacco abuse. He admitted to monitored bed with a pneumonia care set empiric antibiotics, flutter valve and Flonase. Follow-up CBC and blood culture (2) Pneumonia Is this a current diagnosis for this admission?: Yes Plan: Please see #1 (3) Tobacco dependence Is this a current diagnosis for this admission?: Yes Plan: Tobacco Dependence patient received tobacco cessation counseling and offered nicotine replacement options (4) Tachycardia Is this a current diagnosis for this admission?: Yes Plan: Secondary to #1 concern for high risk for developing atrial fibrillation. Trial Cardizem p.o. - Time Time Spent: 50 to 70 Minutes - Inpatient Certification Medical Necessity: Need Close Monitoring Due to Risk of Patient Decompensation
[2017-01-17 04:41] LABS: ABSOLUTE LYMPHOCYTES (AUTO) 0.5 10^3/uL (0.5-4.7); ABSOLUTE NEUT (AUTO) 4.9 10^3/uL (1.7-8.2); BASOPHILS % (AUTO) 0.7 % (0-2); EOSINOPHILS % (AUTO) 0.1 % (0-6); HEMATOCRIT 44.1 % (37.9-51.0); HGB HCT DIFFERENCE 0.9; LYMPHOCYTES % (AUTO) 8.9 % (13-45); MEAN CORPUSCULAR HEMOGLOBIN 32.1 pg (27.0-33.4); MEAN CORPUSCULAR VOLUME 94 fl (80-97); MONOCYTES % (AUTO) 0.6 % (3-13); RED BLOOD COUNT 4.68 10^6/uL (4.35-5.55); RED CELL DISTRIBUTION WIDTH 12.7 % (11.5-14.0); SEGMENTED NEUTROPHILS % (AUTO) 89.7 % (42-78); WHITE BLOOD COUNT 5.5 10^3/uL (4.0-10.5)
[2017-01-17 04:57] LABS: ANION GAP 10 (5-19); BLOOD UREA NITROGEN 20 mg/dL (7-20); CALCIUM 9.6 mg/dL (8.4-10.2); CARBON DIOXIDE 31 mmol/L (22-30); CHLORIDE 99 mmol/L (98-107); CREATININE RESULT 0.94 mg/dL (0.52-1.25); GLUCOSE 172 mg/dL (75-110); POTASSIUM 4.5 mmol/L (3.6-5.0); SODIUM 140.4 mmol/L (137-145)
[2017-01-17] MEDS: DILTIAZEM HCL 60 MG TABLET PO SCH ×3 (05:35→21:48)
[2017-01-17] MEDS: HEPARIN SOD (PORCINE) 5,000 UNIT/ML 1 ML SYRINGE SUBCUT SCH ×3 (05:36→21:48)
--- NOTE | 2017-01-17 09:09 | PDOC PROGRESS REPORT ---
Subjective Progress Note for:: 01/17/17 Subjective:: Patient is seen on morning rounds. He is sitting out of bed in bedside chair eating breakfast. He states his breathing is feeling better than it did last night. His wheezing has pretty much resolved. He states he feels mucous loosening in his chest but has not been able to cough it up as of yet. He denies any other complaints at the present time. Remaining review of systems is negative Physical Exam Vital Signs: Temp Pulse Resp BP Pulse Ox 98.2 F 72 18 113/76 95 01/17/17 07:30 01/17/17 07:30 01/17/17 07:30 01/17/17 07:30 01/17/17 07:30 Intake & Output 01/16/17 01/17/17 01/18/17 06:59 06:59 06:59 Intake Total 550 Balance 550 General appearance: PRESENT: no acute distress, disheveled, thin, well-developed , well-nourished Head exam: PRESENT: atraumatic, normocephalic Eye exam: PRESENT: conjunctiva pink, EOMI, PERRLA. ABSENT: scleral icterus Ear exam: PRESENT: normal external ear exam Mouth exam: PRESENT: moist, neck supple, tongue midline Teeth exam: PRESENT: edentulous, poor dentation Neck exam: ABSENT: carotid bruit, JVD, lymphadenopathy, thyromegaly Respiratory exam: PRESENT: decreased breath sounds, symmetrical, unlabored Cardiovascular exam: PRESENT: RRR. ABSENT: diastolic murmur, rubs, systolic murmur Pulses: PRESENT: normal dorsalis pedis pul Vascular exam: PRESENT: normal capillary refill GI/Abdominal exam: PRESENT: normal bowel sounds, soft. ABSENT: distended, guarding, mass, organolmegaly, rebound, tenderness Rectal exam: PRESENT: deferred Extremities exam: PRESENT: full ROM. ABSENT: calf tenderness, clubbing, pedal edema Neurological exam: PRESENT: alert, awake, oriented to person, oriented to place , oriented to time, oriented to situation, CN II-XII grossly intact. ABSENT: motor sensory deficit Psychiatric exam: PRESENT: appropriate affect, normal mood. ABSENT: homicidal ideation, suicidal ideation Skin exam: PRESENT: dry, intact, warm. ABSENT: cyanosis, rash Results Laboratory Results: 01/17/17 04:02 01/17/17 04:02 01/17/17 01/17/17 04:02 04:02 WBC 5.5 RBC 4.68 Hgb 15.0 Hct 44.1 MCV 94 MCH 32.1 MCHC 34.0 RDW 12.7 Plt Count 190 Seg Neutrophils % 89.7 H Lymphocytes % 8.9 L Monocytes % 0.6 L Eosinophils % 0.1 Basophils % 0.7 Absolute Neutrophils 4.9 Absolute Lymphocytes 0.5 Absolute Monocytes 0.0 L Absolute Eosinophils 0.0 Absolute Basophils 0.0 Sodium 140.4 Potassium 4.5 Chloride 99 Carbon Dioxide 31 H Anion Gap 10 BUN 20 Creatinine 0.94 Est GFR ( Amer) > 60 Est GFR (Non-Af Amer) > 60 Glucose 172 H Calcium 9.6 Impressions: Chest X-Ray 01/16/17 20:51 IMPRESSION: COPD. NO ACUTE RADIOGRAPHIC FINDING IN THE CHEST. Assessment & Plan - Diagnosis (1) Acute and chronic respiratory failure with hypercapnia Is this a current diagnosis for this admission?: Yes Plan: Will continue IV steroids, emperic antibiotics and nebulizer treatments. Likely secondary to acute bronchitis in the setting of oxygen dependent COPD (2) COPD exacerbation Is this a current diagnosis for this admission?: Yes Plan: As above (3) Tachycardia Is this a current diagnosis for this admission?: Yes Plan: Improving with improvement of respiratory status (4) Neuropathy Is this a current diagnosis for this admission?: Yes Plan: Continue neuroleptics (5) Wheezing Is this a current diagnosis for this admission?: Yes (6) Tobacco dependence Is this a current diagnosis for this admission?: Yes Plan: Counseled. Patient is not interested in tobacco cessation - Time Time Spent with patient: 25-34 minutes Critical Time spent with patient: 25-34 minutes Medications reviewed and adjusted accordingly: Yes Anticipated discharge: Home with Homehealth
[2017-01-17] MEDS: GUAIFENESIN 600 MG TABLET.SA PO SCH ×2 (09:23→21:48)
[2017-01-17] MEDS: GABAPENTIN 300 MG CAPSULE PO SCH ×3 (09:23→17:36)
[2017-01-17] MEDS: ASPIRIN 81 MG TABLET, ENT COATED PO SCH (09:24)
[2017-01-17] MEDS: FLUTICASONE NASAL SPRAY 50 MCG/SPRY 120 SPRAY/16 GM NASL SCH (09:30)
[2017-01-17] MEDS ORDERED: (PENDING PHARMACY ID) (Dextroamphetamine/Amphetamine [Adderall 20 Mg Tablet] 20 MG) PO SCH (12:00)
[2017-01-17] MEDS: METHYLPREDNISOLONE INJ 40 MG/1 ML SDV IV SCH ×2 (13:58→21:48)
[2017-01-17] MEDS: BUDESONIDE/FORMOTEROL 160-4.5 MCG 60 PUFF/6 GM MDI IH SCH ×2 (14:40→17:36)
[2017-01-17] MEDS: MONTELUKAST SODIUM 10 MG TABLET PO SCH (17:36)
[2017-01-17] MEDS: IPRATROPIUM/ALBUTEROL 0.5-2.5 MG/3 ML AMPUL NEB PRN ×2 (20:50→23:52)
[2017-01-17] MEDS: AZITHROMYCIN 500 MG in DEXTROSE 5%-WATER 250 ML IV SCH (21:48)
[2017-01-17] MEDS: CEFTRIAXONE 1 GM/D5W RTU 1 GM/50 ML RTUPB IV SCH (21:48)
[2017-01-18] MEDS: GUAIFENESIN SYRP 200 MG/10 ML UDC PO PRN ×2 (05:45→17:47)
[2017-01-18] MEDS: HEPARIN SOD (PORCINE) 5,000 UNIT/ML 1 ML SYRINGE SUBCUT SCH ×3 (05:45→21:40)
[2017-01-18] MEDS: DILTIAZEM HCL 60 MG TABLET PO SCH ×3 (05:46→21:40)
[2017-01-18] MEDS: METHYLPREDNISOLONE INJ 40 MG/1 ML SDV IV SCH ×3 (05:46→21:40)
[2017-01-18] MEDS ORDERED: AMPHETAMINE PO SCH (08:00)
[2017-01-18] MEDS ORDERED: DEXTROAMPHETAMINE PO SCH (08:00)
[2017-01-18] MEDS: IPRATROPIUM/ALBUTEROL 0.5-2.5 MG/3 ML AMPUL NEB PRN (08:03)
[2017-01-18] MEDS: GUAIFENESIN 600 MG TABLET.SA PO SCH ×2 (09:53→21:40)
[2017-01-18] MEDS: FLUTICASONE NASAL SPRAY 50 MCG/SPRY 120 SPRAY/16 GM NASL SCH (09:53)
[2017-01-18] MEDS: BUDESONIDE/FORMOTEROL 160-4.5 MCG 60 PUFF/6 GM MDI IH SCH ×2 (09:53→21:40)
[2017-01-18] MEDS: ASPIRIN 81 MG TABLET, ENT COATED PO SCH (09:54)
[2017-01-18] MEDS: GABAPENTIN 300 MG CAPSULE PO SCH ×3 (09:54→17:44)
--- NOTE | 2017-01-18 11:37 | PDOC PROGRESS REPORT ---
Subjective Progress Note for:: 01/18/17 Subjective:: Patient is seen on morning rounds. He is sitting out of bed in bedside chair eating breakfast. He states his breathing is feeling better than it did last night. His wheezing has pretty much resolved. He states he feels mucous loosening in his chest but has not been able to cough it up as of yet. He denies any other complaints at the present time. Remaining review of systems is negative Physical Exam Vital Signs: Temp Pulse Resp BP Pulse Ox 98.3 F 59 L 24 H 112/74 93 01/18/17 07:47 01/18/17 08:03 01/18/17 08:03 01/18/17 07:47 01/18/17 08:03 Intake & Output 01/17/17 01/18/17 01/19/17 06:59 06:59 06:59 Intake Total 550 1711 Balance 550 1711 Weight 85.6 kg General appearance: PRESENT: no acute distress, well-developed, well-nourished Head exam: PRESENT: atraumatic, normocephalic Eye exam: PRESENT: conjunctiva pink, EOMI, PERRLA. ABSENT: scleral icterus Ear exam: PRESENT: normal external ear exam Mouth exam: PRESENT: moist, tongue midline Neck exam: ABSENT: carotid bruit, JVD, lymphadenopathy, thyromegaly Respiratory exam: PRESENT: decreased breath sounds - expiratory wheezing, symmetrical, wheezes Cardiovascular exam: PRESENT: RRR. ABSENT: diastolic murmur, rubs, systolic murmur Pulses: PRESENT: normal dorsalis pedis pul Vascular exam: PRESENT: normal capillary refill GI/Abdominal exam: PRESENT: normal bowel sounds, soft. ABSENT: distended, guarding, mass, organolmegaly, rebound, tenderness Rectal exam: PRESENT: deferred Extremities exam: PRESENT: full ROM. ABSENT: calf tenderness, clubbing, pedal edema Neurological exam: PRESENT: alert, awake, oriented to person, oriented to place , oriented to time, oriented to situation, CN II-XII grossly intact. ABSENT: motor sensory deficit Psychiatric exam: PRESENT: appropriate affect, normal mood. ABSENT: homicidal ideation, suicidal ideation Skin exam: PRESENT: dry, intact, warm. ABSENT: cyanosis, rash Results Laboratory Results: 01/17/17 04:02 01/17/17 04:02 Impressions: Chest X-Ray 01/16/17 20:51 IMPRESSION: COPD. NO ACUTE RADIOGRAPHIC FINDING IN THE CHEST. Assessment & Plan - Diagnosis (1) Acute and chronic respiratory failure with hypercapnia Is this a current diagnosis for this admission?: Yes Plan: Will continue IV steroids, emperic antibiotics and nebulizer treatments. He is improved from yesterday Likely secondary to acute bronchitis in the setting of oxygen dependent COPD (2) COPD exacerbation Is this a current diagnosis for this admission?: Yes Plan: As above (3) Wheezing Is this a current diagnosis for this admission?: Yes Plan: Continue steroids and nebulizers (4) Tachycardia Is this a current diagnosis for this admission?: Yes Plan: Improving with improvement of respiratory status (5) Neuropathy Is this a current diagnosis for this admission?: Yes Plan: Continue neuroleptics (6) Tobacco dependence Is this a current diagnosis for this admission?: Yes Plan: Counseled. Patient is not interested in tobacco cessation - Time Time Spent with patient: 25-34 minutes Critical Time spent with patient: 15-24 minutes Medications reviewed and adjusted accordingly: Yes Anticipated discharge: Home with Homehealth Within: within 24 hours - Inpatient Certification Based on my medical assessment, after consideration of the patient's comorbidities, presenting symptoms, or acuity I expect that the services needed warrant INPATIENT care.: Yes I certify that my determination is in accordance with my understanding of Medicare's requirements for reasonable and necessary INPATIENT services [42 CFR 412.3e].: Yes
[2017-01-18] MEDS ORDERED: GABAPENTIN 100 MG CAPSULE PO SCH (14:00)
[2017-01-18] MEDS: IPRATROPIUM/ALBUTEROL 0.5-2.5 MG/3 ML AMPUL NEB SCH ×2 (16:02→23:52)
[2017-01-18] MEDS: MONTELUKAST SODIUM 10 MG TABLET PO SCH (17:43)
[2017-01-18] MEDS: CEFTRIAXONE 1 GM/D5W RTU 1 GM/50 ML RTUPB IV SCH (21:40)
[2017-01-18] MEDS: AZITHROMYCIN 500 MG in DEXTROSE 5%-WATER 250 ML IV SCH (21:40)
[2017-01-19] MEDS: GUAIFENESIN SYRP 200 MG/10 ML UDC PO PRN ×3 (03:13→21:32)
[2017-01-19] MEDS: METHYLPREDNISOLONE INJ 40 MG/1 ML SDV IV SCH ×2 (05:29→18:16)
[2017-01-19] MEDS: DILTIAZEM HCL 60 MG TABLET PO SCH ×3 (05:29→21:21)
[2017-01-19] MEDS: HEPARIN SOD (PORCINE) 5,000 UNIT/ML 1 ML SYRINGE SUBCUT SCH ×3 (05:29→21:24)
[2017-01-19] MEDS: IPRATROPIUM/ALBUTEROL 0.5-2.5 MG/3 ML AMPUL NEB SCH ×3 (07:54→23:57)
--- NOTE | 2017-01-19 09:36 | PDOC PROGRESS REPORT ---
Subjective Progress Note for:: 01/19/17 Subjective:: Patient is seen on morning rounds. He is sitting out of bed in bedside chair eating breakfast. He states his breathing is feeling better than it did yesterday. His wheezing has pretty much resolved. He remains congested. He states he feels mucous loosening in his chest but has not been able to cough it up as of yet. He denies any other complaints at the present time. Remaining review of systems is negative Physical Exam Vital Signs: Temp Pulse Resp BP Pulse Ox 97.8 F 78 18 112/85 92 01/19/17 03:10 01/19/17 07:54 01/19/17 07:54 01/19/17 03:10 01/19/17 07:54 Intake & Output 01/18/17 01/19/17 01/20/17 06:59 06:59 06:59 Intake Total 1711 1870 Balance 1711 1870 Weight 85.6 kg 86.2 kg General appearance: PRESENT: no acute distress, well-developed, well-nourished Head exam: PRESENT: atraumatic, normocephalic Eye exam: PRESENT: conjunctiva pink, EOMI, PERRLA. ABSENT: scleral icterus Ear exam: PRESENT: normal external ear exam Mouth exam: PRESENT: moist, tongue midline Respiratory exam: PRESENT: rhonchi, symmetrical, unlabored Cardiovascular exam: PRESENT: RRR. ABSENT: diastolic murmur, rubs, systolic murmur Pulses: PRESENT: normal dorsalis pedis pul Vascular exam: PRESENT: normal capillary refill GI/Abdominal exam: PRESENT: normal bowel sounds, soft. ABSENT: distended, guarding, mass, organolmegaly, rebound, tenderness Rectal exam: PRESENT: deferred Extremities exam: PRESENT: full ROM. ABSENT: calf tenderness, clubbing, pedal edema Neurological exam: PRESENT: alert, awake, oriented to person, oriented to place , oriented to time, oriented to situation, CN II-XII grossly intact. ABSENT: motor sensory deficit Psychiatric exam: PRESENT: appropriate affect, normal mood. ABSENT: homicidal ideation, suicidal ideation Skin exam: PRESENT: dry, intact, warm. ABSENT: cyanosis, rash Results Laboratory Results: 01/17/17 04:02 01/17/17 04:02 Impressions: Chest X-Ray 01/16/17 20:51 IMPRESSION: COPD. NO ACUTE RADIOGRAPHIC FINDING IN THE CHEST. Assessment & Plan - Diagnosis (1) Acute and chronic respiratory failure with hypercapnia Is this a current diagnosis for this admission?: Yes Plan: Will continue IV steroids, emperic antibiotics and nebulizer treatments. He is improved from yesterday Likely secondary to acute bronchitis in the setting of oxygen dependent COPD Will add mucomist to attempt to loosen secretions (2) COPD exacerbation Is this a current diagnosis for this admission?: Yes Plan: As above (3) Wheezing Is this a current diagnosis for this admission?: Yes Plan: Presently resolved. Continue to taper steroids (4) Tachycardia Is this a current diagnosis for this admission?: Yes Plan: Improving with improvement of respiratory status (5) Neuropathy Is this a current diagnosis for this admission?: Yes Plan: Continue neuroleptics (6) Tobacco dependence Is this a current diagnosis for this admission?: Yes Plan: Counseled. Patient is not interested in tobacco cessation - Time Time Spent with patient: 25-34 minutes Critical Time spent with patient: 15-24 minutes Medications reviewed and adjusted accordingly: Yes Anticipated discharge: Home Within: within 24 hours
[2017-01-19] MEDS ORDERED: ACETYLCYSTEINE 20% SOLN 800 MG/4 ML VIAL.NEB NEB ONE (10:00)
[2017-01-19] MEDS: GUAIFENESIN 600 MG TABLET.SA PO SCH ×2 (11:12→21:20)
[2017-01-19] MEDS: GABAPENTIN 300 MG CAPSULE PO SCH ×3 (11:12→18:16)
[2017-01-19] MEDS: ASPIRIN 81 MG TABLET, ENT COATED PO SCH (11:12)
[2017-01-19] MEDS: NICOTINE 21 MG/24 HR PATCH.TD24 TD SCH (11:13)
[2017-01-19] MEDS: FLUTICASONE NASAL SPRAY 50 MCG/SPRY 120 SPRAY/16 GM NASL SCH (11:15)
[2017-01-19] MEDS: BUDESONIDE/FORMOTEROL 160-4.5 MCG 60 PUFF/6 GM MDI IH SCH ×2 (11:28→21:23)
[2017-01-19] MEDS: MONTELUKAST SODIUM 10 MG TABLET PO SCH (18:16)
[2017-01-19] MEDS: ACETYLCYSTEINE 20% SOLN 800 MG/4 ML VIAL.NEB NEB SCH (19:37)
[2017-01-19] MEDS: IPRATROPIUM/ALBUTEROL 0.5-2.5 MG/3 ML AMPUL NEB PRN (19:38)
[2017-01-19] MEDS: CEFTRIAXONE 1 GM/D5W RTU 1 GM/50 ML RTUPB IV SCH (21:23)
[2017-01-19] MEDS ORDERED: AZITHROMYCIN 250 MG TABLET PO SCH (22:00)
[2017-01-20 05:36] LABS: HEMATOCRIT 47.3 % (37.9-51.0); HEMOGLOBIN 15.8 g/dL (13.5-17.0); HGB HCT DIFFERENCE 0.1; MEAN CORPUSCULAR HEMOGLOBIN 31.8 pg (27.0-33.4); MEAN CORPUSCULAR HGB CONC 33.3 g/dL (32.0-36.0); MEAN CORPUSCULAR VOLUME 96 fl (80-97); RED BLOOD COUNT 4.95 10^6/uL (4.35-5.55); RED CELL DISTRIBUTION WIDTH 13.3 % (11.5-14.0); WHITE BLOOD COUNT 13.9 10^3/uL (4.0-10.5)
[2017-01-20 05:37] LABS: ANION GAP 11 (5-19); BLOOD UREA NITROGEN 25 mg/dL (7-20); CARBON DIOXIDE 29 mmol/L (22-30); CHLORIDE 101 mmol/L (98-107); CREATININE RESULT 0.96 mg/dL (0.52-1.25); GLUCOSE 224 mg/dL (75-110); POTASSIUM 4.5 mmol/L (3.6-5.0)
[2017-01-20] MEDS: DILTIAZEM HCL 60 MG TABLET PO SCH (05:40)
[2017-01-20] MEDS: METHYLPREDNISOLONE INJ 40 MG/1 ML SDV IV SCH (05:40)
[2017-01-20] MEDS: HEPARIN SOD (PORCINE) 5,000 UNIT/ML 1 ML SYRINGE SUBCUT SCH (05:40)
[2017-01-20 05:53] LABS: BAND NEUTROPHILS % (MANUAL) 1 % (3-5); BASOPHILS % (MANUAL) 0 % (0-2); EOSINOPHILS % (MANUAL) 0 % (0-6); LYMPHOCYTES % (MANUAL) 6 % (13-45); RBC MORPHOLOGY COMMENT NORMO-CYTIC/CHROMIC; TOTAL CELLS COUNTED 100; TOXIC GRANULATION SLIGHT
[2017-01-20] MEDS: IPRATROPIUM/ALBUTEROL 0.5-2.5 MG/3 ML AMPUL NEB SCH (07:35)
[2017-01-20] MEDS: ACETYLCYSTEINE 20% SOLN 800 MG/4 ML VIAL.NEB NEB SCH (07:35)
[2017-01-20] MEDS: ASPIRIN 81 MG TABLET, ENT COATED PO SCH (09:27)
[2017-01-20] MEDS: GUAIFENESIN 600 MG TABLET.SA PO SCH (09:27)
[2017-01-20] MEDS: NICOTINE 21 MG/24 HR PATCH.TD24 TD SCH (09:28)
[2017-01-20] MEDS: GABAPENTIN 300 MG CAPSULE PO SCH (09:28)
[2017-01-20] MEDS: FLUTICASONE NASAL SPRAY 50 MCG/SPRY 120 SPRAY/16 GM NASL SCH (09:30)
[2017-01-20] MEDS: BUDESONIDE/FORMOTEROL 160-4.5 MCG 60 PUFF/6 GM MDI IH SCH (09:30)
[2017-01-20 11:25] VITALS: BP 121/71
--- NOTE | 2017-01-20 12:35 | PDOC DISCHARGE SUMMARY ---
General - Admit/Disc Date/PCP Admission Date/Primary Care Provider: 01/16/17 22:35 Discharge Date: 01/20/17 - Discharge Diagnosis (1) Acute and chronic respiratory failure with hypercapnia Is this a current diagnosis for this admission?: Yes Summary: Removed with IV steroids, broad-spectrum antibiotics and nebulizer treatment. (2) COPD exacerbation Is this a current diagnosis for this admission?: Yes Summary: As #1 (3) Wheezing Is this a current diagnosis for this admission?: Yes Summary: Resolved (4) Tachycardia Is this a current diagnosis for this admission?: Yes Summary: Resolved (5) Neuropathy Is this a current diagnosis for this admission?: Yes Summary: Continue gabapentin. (6) Tobacco dependence Is this a current diagnosis for this admission?: Yes Summary: Counseled - Additional Information Resuscitation Status: Full Code Discharge Diet: Regular Discharge Activity: Activity As Tolerated, Balance Activity w/Rest Home Medications: Albuterol Sulfate [Proair HFA] 2 puff IH Q4HP PRN 10/06/16 Albuterol Sulfate [Ventolin 0.083% Neb 2.5 mg/3 mL Ampul] 3 ml NEB RTQ4HP PRN Aspirin [Adult Low Dose Aspirin EC] 81 mg PO DAILY 10/06/16 Budesonide/Formoterol Fumarate [Symbicort HFA 160-4.5 mcg Inhaler 6 gm] 2 puff IH BID 10/06/16 Dextroamphetamine/Amphetamine [Adderall 20 mg Tablet] 20 mg PO NOON 10/06/16 Dextroamphetamine/Amphetamine [Adderall XR 25 mg Capsule] 25 mg PO QAM 10/06/16 Montelukast Sodium [Singulair 10 mg Tablet] 10 mg PO QPM 10/06/16 Gabapentin 300 mg PO TID #90 capsule 10/07/16 Doxycycline Hyclate [Vibramycin 100 mg Tablet] 100 mg PO Q12 #14 tablet Fluticasone Propionate [Flonase Nasal Bruin 50 Mcg/Bruin 16 gm] 2 spray NASL DAILY spray.pump 01/20/17 Guaifenesin [Mucinex Sr 600 mg Tablet.sa] 1,200 mg PO Q12 tablet.sa 01/20/17 Prednisone [Deltasone 20 mg Tablet] 20 mg PO BID #10 tablet 01/20/17 History of Present Illness Patient complains of: Shortness of breath and wheezing History of Present Illness: MANI FLYNN is a 66 year old male with a past medical history of home oxygen dependent COPD, chronic bronchitis, tobacco dependence, bipolar disorder and chronic pain. He been in his usual state of health until approximately 48 hours prior to presentation with excessive nonproductive cough and shortness of breath prompting evaluation in the emergency room. He is found to have hypertension, tachycardia, tachypnea, hypoxia, hypercapnia bilateral wheezing and rhonchi. He started on empiric antibiotics steroids albuterol and Atrovent referred to the hospitalist for admission. Patient denies chest pain nausea or vomiting, URI or GERD, he admits to persistent tobacco abuse. Hospital Course Hospital Course: The patient was admitted to the telemetry floor on the hospitalist service. He was started on IV antibiotics, IV steroids and nebulizer treatments. He continued to have diffuse wheezing over the next 2 days. This gradually improved and resolved. He was able to be weaned off of oxygen. His cough improved. His blood cultures were negative. Sputum culture was never obtained. IV antibiotics were transitioned to oral and IV prednisone was switched to oral. He feels much improved. 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 Physical Exam Vital Signs: Temp Pulse Resp BP Pulse Ox 97.7 F 70 18 121/71 100 01/20/17 11:15 01/20/17 11:15 01/20/17 11:15 01/20/17 11:15 01/20/17 11:15 Intake & Output 01/19/17 01/20/17 01/21/17 06:59 06:59 06:59 Intake Total 1869 190 Balance 187 1900 Weight 86.2 kg 86 kg General appearance: PRESENT: no acute distress, well-developed, well-nourished Head exam: PRESENT: atraumatic, normocephalic Eye exam: PRESENT: conjunctiva pink, EOMI, PERRLA. ABSENT: scleral icterus Ear exam: PRESENT: normal external ear exam Mouth exam: PRESENT: moist, tongue midline Neck exam: ABSENT: carotid bruit, JVD, lymphadenopathy, thyromegaly Respiratory exam: PRESENT: decreased breath sounds, symmetrical, unlabored Cardiovascular exam: PRESENT: RRR. ABSENT: diastolic murmur, rubs, systolic murmur Pulses: PRESENT: normal dorsalis pedis pul Vascular exam: PRESENT: normal capillary refill GI/Abdominal exam: PRESENT: normal bowel sounds, soft. ABSENT: distended, guarding, mass, organolmegaly, rebound, tenderness Rectal exam: PRESENT: deferred Extremities exam: PRESENT: full ROM. ABSENT: calf tenderness, clubbing, pedal edema Neurological exam: PRESENT: alert, awake, oriented to person, oriented to place , oriented to time, oriented to situation, CN II-XII grossly intact. ABSENT: motor sensory deficit Psychiatric exam: PRESENT: appropriate affect, normal mood. ABSENT: homicidal ideation, suicidal ideation Skin exam: PRESENT: dry, intact, warm. ABSENT: cyanosis, rash Results Laboratory Results: 01/20/17 04:51 01/20/17 04:51 01/20/17 01/20/17 04:51 04:51 WBC 13.9 H RBC 4.95 Hgb 15.8 Hct 47.3 MCV 96 MCH 31.8 MCHC 33.3 RDW 13.3 Plt Count 181 Seg Neutrophils % Not Reportable Lymphocytes % Not Reportable Monocytes % Not Reportable Eosinophils % Not Reportable Basophils % Not Reportable Absolute Neutrophils Not Reportable Absolute Lymphocytes Not Reportable Absolute Monocytes Not Reportable Absolute Eosinophils Not Reportable Absolute Basophils Not Reportable Sodium 141.0 Potassium 4.5 Chloride 101 Carbon Dioxide 29 Anion Gap 11 BUN 25 H Creatinine 0.96 Est GFR ( Amer) > 60 Est GFR (Non-Af Amer) > 60 Glucose 224 H Calcium 10.0 Impressions: Chest X-Ray 01/16/17 20:51 IMPRESSION: COPD. NO ACUTE RADIOGRAPHIC FINDING IN THE CHEST. Qualifiers P[facility]INT BEING DISCHARGED WITH ANY OF THE FOLLOWING DIAGNOSIS?: No Plan Discharge Plan: Home with Time Spent: Less than 30 Minutes
[2017-01-20] MEDS ORDERED: PREDNISONE 20 MG TABLET PO SCH (18:00)
[2017-01-20] MEDS ORDERED: DOXYCYCLINE HYCLATE 100 MG TABLET PO SCH (22:00)
== END 2017-01-20 11:35 | disposition home or self-care (01) | DRG 190 ==
LOC: ER 20:50 → EH 22:35 → UNDOADMIN 22:43 → 4N 01-17 00:35
PROVIDERS: ADMIT Internal Medicine; ATTEND Internal Medicine
PROC: 5A09457 Assistance with Respiratory Ventilation, 24-96 Consecutive Hours, Continuous Positive Airway Pressure (ICD-10-PCS; principal; 2017-01-16)
PROC: 3E0F73Z Introduction of Anti-inflammatory into Respiratory Tract, Via Natural or Artificial Opening (ICD-10-PCS; 2017-01-18)
DX: J44.0 Chronic obstructive pulmonary disease with (acute) lower respiratory infection (principal); J18.9 Pneumonia, unspecified organism; J96.22 Acute and chronic respiratory failure with hypercapnia; J44.1 Chronic obstructive pulmonary disease with (acute) exacerbation; G62.9 Polyneuropathy, unspecified; F17.210 Nicotine dependence, cigarettes, uncomplicated; F31.9 Bipolar disorder, unspecified; I10 Essential (primary) hypertension; E78.5 Hyperlipidemia, unspecified; G47.30 Sleep apnea, unspecified; K21.9 Gastro-esophageal reflux disease without esophagitis; K44.9 Diaphragmatic hernia without obstruction or gangrene; M19.90 Unspecified osteoarthritis, unspecified site; R00.0 Tachycardia, unspecified; Z99.81 Dependence on supplemental oxygen; Z90.49 Acquired absence of other specified parts of digestive tract; Z79.82 Long term (current) use of aspirin; Z79.899 Other long term (current) drug therapy; Z85.51 Personal history of malignant neoplasm of bladder; Z83.6 Family history of other diseases of the respiratory system; Z82.49 Family history of ischemic heart disease and other diseases of the circulatory system
CPT/HCPCS: 36415; 71010; 80048; 80053; 82550; 82553; 82803; 83880; 84484; 85025; 93005; 93010; 94640; 94660; 94667; 94668; 96374; 99285; J0456; J0696; J1644; J2920; J2930; J3490; J7060; J7620

== ENCOUNTER 2017-04-24 11:07 | Inpatient (IN) | payer MEDICARE ==
[2017-04-24] MEDS ORDERED: METHYLPREDNISOLONE INJ 125 MG/2 ML SDV IV ONE (11:26)
[2017-04-24] MEDS ORDERED: LEVOFLOXACIN 750 MG/D5W RTU 750 MG/150 ML RTUPB IV ONE (11:27)
[2017-04-24] MEDS ORDERED: NORMAL SALINE 1000 ML 1,000 ML IV ONE (11:34)
--- NOTE | 2017-04-24 11:34 | ER Document Report ---
ED Respiratory Problem - General Chief Complaint: Shortness Of Breath Stated Complaint: DIFFICULTY BREATHING Time Seen by Provider: 04/24/17 11:26 Information source: Patient Notes: 66-year-old male with past medical history of COPD who presents today with 2 days of some increased shortness of breath, cough, and runny nose. He denies any fevers, chest pain, vomiting, or leg swelling. Patient is normally on 2 L nasal cannulas at home. He denies any recent antibiotics or steroids. Patient states he took one albuterol nebulizer at home prior to arrival which "helped a little". TRAVEL OUTSIDE OF THE [place] IN LAST 30 DAYS: No - HPI Patient complains to provider of: COPD, Short of breath Onset: Other - See above Duration: Continuous Quality of pain: No pain Severity: Moderate Pain Level: Denies Context: Other - See above Short of Breath: Moderate Cough: Nonproductive Sputum amount: Scant At home treatment: Bronchodilators Associated symptoms: Other - See above Similar symptoms previously: Yes Recently seen / treated by doctor: No - Related Data Allergies/Adverse Reactions: No Known Allergies Allergy (Verified 04/24/17 11:07) Home Medications: Current Home Medications Amox Tr/Potassium Clavulanate [Augmentin 875-125 mg Tablet] 1 tab PO BID [History] Past Medical History - General Information source: Patient - Social History Smoking Status: Current Every Day Smoker Cigarette use (# per day): No Chew tobacco use (# tins/day): No Smoking Education Provided: No Frequency of alcohol use: None Drug Abuse: None Family History: COPD, Hypertension Patient has suicidal ideation: No Patient has homicidal ideation: No - Past Medical History Cardiac Medical History: Reports: Hx Hypercholesterolemia Pulmonary Medical History: Reports: Hx Asthma, Hx Bronchitis, Hx COPD, Hx Pneumonia, Hx Sleep Apnea Denies: Hx Tuberculosis Renal/ Medical History: Reports: Hx Kidney Stones. Denies: Hx Peritoneal Dialysis GI Medical History: Reports: Hx Gastroesophageal Reflux Disease, Hx Hiatal Hernia, Hx Ulcer Musculoskeltal Medical History: Reports Hx Arthritis Psychiatric Medical History: Reports: Hx Attention Deficit Hyperactivity Disorder, Hx Bipolar Disorder Denies: Hx Depression Past Surgical History: Reports: Hx Appendectomy, Hx Cholecystectomy, Hx Genitourinary Surgery - removal of bladder cancer x2. Denies: Hx Pacemaker - Immunizations Hx Diphtheria, Pertussis, Tetanus Vaccination: Yes Hx Pneumococcal Vaccination: 05/16/11 Review of Systems - Review of Systems Constitutional: denies: Fever EENT: Nose congestion, Nose discharge. denies: Eye discharge Cardiovascular: denies: Chest pain, Palpitations, Dizziness, Lightheaded Respiratory: Short of breath, Wheezing. denies: Hemoptysis Gastrointestinal: denies: Vomiting Genitourinary: denies: Dysuria Musculoskeletal: denies: Leg swelling Skin: Other - no hives. denies: Rash Neurological/Psychological: Other - no slurred speech -: Yes All other systems reviewed and negative Physical Exam - Vital signs Vitals: Temp Pulse Resp BP Pulse Ox 98.2 F 120 H 32 H 119/86 H 85 L 04/24/17 11:12 04/24/17 11:12 04/24/17 11:12 04/24/17 11:12 04/24/17 11:12 Notes: Reviewed vital signs and nursing note as charted by RN. CONSTITUTIONAL: Alert and oriented and responds appropriately to questions. Patient has a slight tripoding position speaking in 3-4 word sentences HEAD: Normocephalic; atraumatic EYES: PERRL; Conjunctivae clear, sclerae non-icteric ENT: Normal nose; no rhinorrhea; dry mucous membranes; pharynx without lesions noted NECK: Supple without meningismus; non-tender CARD: Regular rate and rhythm; no murmurs, no clicks, no rubs, no gallops; symmetric distal pulses RESP: Normal chest excursion without splinting or tachypnea; patient has scattered rhonchi with end expiratory wheezing bilaterally. No rales present ABD/GI: Normal bowel sounds; non-distended; soft, non-tender BACK: The back appears normal and is non-tender to palpation EXT: Normal ROM in all joints; non-tender to palpation, no edema SKIN: Normal color for age and race; warm; no acute lesions noted NEURO: Moves all extremities equally; Motor and sensory function intact PSYCH: The patient's mood and manner are appropriate. Grooming and personal hygiene are appropriate. Course - Re-evaluation Re-evalutation: 04/24/17 11:34 Given the above history and physical examination we will place the patient on the monitor, oxygen, provide steroids and duo nebulizers, provide Levaquin, and obtain an EKG. Even the possibility of insensate loss, I will provide a liter of fluid. Patient has no history of heart failure denies any chest pain or leg swelling. 04/24/17 12:31 EKG shows a heart of 113, sinus tachycardia, normal axis, no obvious ST elevation or depression 04/24/17 12:36 ABG as recorded. Patient's PCO2 is elevated. Nebulizer improved only slightly. Patient still denies any chest pain. I will apply 10/5 BiPAP to the patient. - Vital Signs Vital signs: Temp Pulse Resp BP Pulse Ox 98.2 F 120 H 28 H 117/90 H 93 04/24/17 11:12 04/24/17 11:12 04/24/17 12:01 04/24/17 12:00 04/24/17 12:01 - Laboratory Result Diagrams: 04/24/17 11:35 04/24/17 11:35 Laboratory results interpreted by me: 04/24/17 04/24/17 04/24/17 11:35 11:35 11:55 Plt Count 149 L Lymphocytes % 10.4 L Carbonic Acid 1.90 H ABG pCO2 63.1 H ABG pO2 65.7 L ABG HCO3 35.9 H ABG Total CO2 37.8 H ABG O2 Saturation 91.9 L Sodium 135.8 L Chloride 92 L Carbon Dioxide 33 H Critical Care Note - Critical Care Note Total time excluding time spent on procedures (mins): 35 Discharge - Discharge Clinical Impression: COPD exacerbation Condition: Fair Disposition: ADMITTED INPATIENT Admitting Provider: Hospitalist Unit Admitted: Telemetry
[2017-04-24] MEDS: IPRATROPIUM/ALBUTEROL 0.5-2.5 MG/3 ML AMPUL NEB SCH ×5 (11:56→19:38)
[2017-04-24 12:00] LABS: ABSOLUTE BASOPHILS # (AUTO) 0.1 10^3/uL (0.0-0.2); ABSOLUTE EOSINOPHILS # (AUTO) 0.1 10^3/uL (0.0-0.6); ABSOLUTE MONOCYTES (AUTO) 1.3 10^3/uL (0.1-1.4); ABSOLUTE NEUT (AUTO) 7.5 10^3/uL (1.7-8.2); BASOPHILS % (AUTO) 0.8 % (0-2); EOSINOPHILS % (AUTO) 0.9 % (0-6); HEMATOCRIT 48.6 % (37.9-51.0); HEMOGLOBIN 16.3 g/dL (13.5-17.0); HGB HCT DIFFERENCE 0.3; LYMPHOCYTES % (AUTO) 10.4 % (13-45); MEAN CORPUSCULAR HEMOGLOBIN 31.5 pg (27.0-33.4); MEAN CORPUSCULAR HGB CONC 33.5 g/dL (32.0-36.0); MEAN CORPUSCULAR VOLUME 94 fl (80-97); MONOCYTES % (AUTO) 12.7 % (3-13); RED BLOOD COUNT 5.18 10^6/uL (4.35-5.55); RED CELL DISTRIBUTION WIDTH 13.4 % (11.5-14.0); SEGMENTED NEUTROPHILS % (AUTO) 75.2 % (42-78); WHITE BLOOD COUNT 9.9 10^3/uL (4.0-10.5)
[2017-04-24 12:14] LABS: ANION GAP 11 (5-19); BLOOD UREA NITROGEN 18 mg/dL (7-20); CALCIUM 9.7 mg/dL (8.4-10.2); CARBON DIOXIDE 33 mmol/L (22-30); CHLORIDE 92 mmol/L (98-107); CREATININE RESULT 0.81 mg/dL (0.52-1.25); GLUCOSE 88 mg/dL (75-110); POTASSIUM 4.6 mmol/L (3.6-5.0); SODIUM 135.8 mmol/L (137-145)
[2017-04-24 12:24] LABS: ARTERIAL BLOOD BASE EXCESS 7.9 mmol/L; ARTERIAL BLOOD O2 SATURATION 91.9 % (94-98)
[2017-04-24] MEDS ORDERED: ACETAMINOPHEN 325 MG TABLET PO PRN (12:59)
[2017-04-24] MEDS ORDERED: ONDANSETRON HCL INJ/PF 4 MG/2 ML SDV IV PRN (12:59)
[2017-04-24] MEDS ORDERED: ALBUTEROL SULFATE 0.083% NEB 2.5 MG/3 ML AMPUL NEB PRN (12:59)
[2017-04-24] MEDS ORDERED: OXYCODONE-ACETAMINOPHEN 5-325 MG TABLET PO PRN (12:59)
[2017-04-24] MEDS ORDERED: ZOLPIDEM TARTRATE 5 MG TABLET PO PRN (12:59)
--- NOTE | 2017-04-24 13:10 | RADIOLOGY REPORT (SQ) ---
EXAM DESCRIPTION: CHEST PA/LAT COMPLETED DATE/TIME: 04/24/2017 12:58 pm REASON FOR STUDY: 3, sob and cough; h/o copd COMPARISON: 10/05/2016 EXAM PARAMETERS: NUMBER OF VIEWS: two views TECHNIQUE: Digital Frontal and Lateral radiographic views of the chest acquired. RADIATION DOSE: NA LIMITATIONS: none FINDINGS: LUNGS AND PLEURA: Underlying COPD. There is minimal interstitial change. MEDIASTINUM AND HILAR STRUCTURES: No masses or contour abnormalities. HEART AND VASCULAR STRUCTURES: Heart normal size. BONES: No acute findings. HARDWARE: None in the chest. OTHER: No other significant finding. IMPRESSION: Interstitial pulmonary edema superimposed on obstructive pulmonary disease. TECHNICAL DOCUMENTATION: JOB ID: [id number] [employer]- All Rights Reserved
[2017-04-24] MEDS: METHYLPREDNISOLONE INJ 40 MG/1 ML SDV IV SCH ×2 (13:29→22:33)
[2017-04-24] MEDS ORDERED: MONTELUKAST SODIUM 10 MG TABLET PO ONE (14:00)
[2017-04-24] MEDS: ALPRAZOLAM 0.25 MG TABLET PO PRN (16:59)
[2017-04-24] MEDS ORDERED: INFLUENZA ADLT QUAD (36MOS+) 2017-18 VAC 0.5 ML SYR IM PRN (18:22)
--- NOTE | 2017-04-24 19:12 | PDOC H&P ---
History of Present Illness Admission Date/PCP: 04/24/17 13:11 Patient complains of: Shortness of breath and nonproductive cough for the past 2 days History of Present Illness: MANI FLYNN is a 66 year old male resents accompanied by family and complains of progressive shortness of breath over the course of 2 days. Patient complains of nonproductive cough. States that is like something stuck in the middle of his chest but is not able to bring it up. Patient uses 2 L of oxygen however during the past 2 day he had gone up to 2.5 with not much relief. Patient admits that he continues smoking around 2 or 3 cigarettes a day. Patient drinks 1 pint of liquor on a weekly basis. He denies getting into any problems if he does not drink on a regular basis. Patient was placed on BiPAP while he was in emergency room. Due to presentation and comorbidities are service was contacted and prompted to admit. Past Medical History Cardiac Medical History: Reports: Hyperlipidema Pulmonary Medical History: Reports: Asthma, Bronchitis, Chronic Obstructive Pulmonary Disease (COPD), Pneumonia, Sleep Apnea Denies: Tuberculosis EENT Medical History: Reports: None Neurological Medical History: Reports: None Endocrine Medical History: Reports: None Renal/ Medical History: Reports: None Malignancy Medical History: Reports: None GI Medical History: Reports: Gastroesophageal Reflux Disease, Hiatal Hernia Musculoskeltal Medical History: Reports: Arthritis Psychiatric Medical History: Reports: Alcohol Dependency, Attention Deficit Hyperactivity Disorder, Bipolar Disorder Denies: Depression Traumatic Medical History: Reports: None Past Surgical History Past Surgical History: Reports: Appendectomy, Cholecystectomy Denies: Pacemaker Social History Lives with: Alone Smoking Status: Current Every Day Smoker Frequency of Alcohol Use: Heavy Hx Recreational Drug Use: No Drugs: None Hx Prescription Drug Abuse: No - Advance Directive Resuscitation Status: Full Code Family History Family History: COPD, Hypertension Parental Family History Reviewed: Yes Children Family History Reviewed: Yes Sibling(s) Family History Reviewed.: Yes Medication/Allergy Home Medications: Albuterol Sulfate [Proair HFA] 2 puff IH Q4HP PRN 10/06/16 Albuterol Sulfate [Ventolin 0.083% Neb 2.5 mg/3 mL Ampul] 3 ml NEB RTQ4HP PRN Aspirin [Adult Low Dose Aspirin EC] 81 mg PO DAILY 10/06/16 Budesonide/Formoterol Fumarate [Symbicort HFA 160-4.5 mcg Inhaler 6 gm] 2 puff IH BID 10/06/16 Dextroamphetamine/Amphetamine [Adderall 20 mg Tablet] 20 mg PO BID 10/06/16 Montelukast Sodium [Singulair 10 mg Tablet] 10 mg PO QPM 10/06/16 Fluticasone Propionate [Flonase Nasal [place] 50 Mcg/[place] 16 gm] 2 spray NASL DAILY spray.pump 01/20/17 Amox Tr/Potassium Clavulanate [Augmentin 875-125 mg Tablet] 1 tab PO BID Gabapentin 200 mg PO Q8 04/24/17 Prednisone [Deltasone 20 mg Tablet] 20 mg PO DAILY 04/24/17 Allergies/Adverse Reactions: No Known Allergies Allergy (Verified 04/24/17 11:07) Review of Systems Constitutional: PRESENT: weakness. ABSENT: headache(s), night sweats Eyes: ABSENT: visual disturbances Ears: ABSENT: hearing changes Nose, Mouth, and Throat: ABSENT: sore throat Cardiovascular: PRESENT: chest pain, dyspnea on exertion Respiratory: PRESENT: cough, dyspnea Gastrointestinal: ABSENT: abdominal pain, nausea, vomiting Genitourinary: ABSENT: dysuria Musculoskeletal: ABSENT: joint swelling Psychiatric: PRESENT: anxiety, depression Physical Exam Vital Signs: Temp Pulse Resp BP Pulse Ox 98.2 F 120 H 24 H 112/86 H 96 04/24/17 11:12 04/24/17 11:12 04/24/17 13:01 04/24/17 13:01 04/24/17 13:01 General appearance: PRESENT: cooperative, obese, other - Appears to be in moderate respiratory distress Head exam: PRESENT: atraumatic, normocephalic Eye exam: PRESENT: EOMI Ear exam: PRESENT: normal external ear exam, TM's normal bilaterally Mouth exam: PRESENT: moist, neck supple Neck exam: PRESENT: full ROM, tenderness. ABSENT: JVD Respiratory exam: PRESENT: crackles, decreased breath sounds Cardiovascular exam: PRESENT: tachycardia. ABSENT: diastolic murmur, systolic murmur Vascular exam: PRESENT: normal capillary refill GI/Abdominal exam: PRESENT: normal bowel sounds, soft. ABSENT: guarding, tenderness Neurological exam: PRESENT: alert, oriented to person, oriented to place, oriented to time, CN II-XII grossly intact Psychiatric exam: PRESENT: anxious Skin exam: PRESENT: normal color Results Impressions: Chest X-Ray 04/24/17 11:26 IMPRESSION: Interstitial pulmonary edema superimposed on obstructive pulmonary disease. Assessment & Plan - Diagnosis (1) Alcohol abuse Is this a current diagnosis for this admission?: Yes Plan: Patient will be placed on benzodiazepines, thiamine and multivitamins will watch for withdrawal (2) COPD exacerbation Is this a current diagnosis for this admission?: Yes Plan: Patient will be placed on DuoNeb's, Pulmicort, Mucomyst, Daliresp and IV steroids. Also will be placed on Levaquin p.o.. Order flu screening (3) Acute and chronic respiratory failure with hypercapnia Is this a current diagnosis for this admission?: Yes Plan: Will continue BiPAP with oxygen supplementation. It is not worth it to mention that blood gases are baseline. (4) Tobacco dependence Is this a current diagnosis for this admission?: Yes Plan: Patient has been strongly advised to quit and is located in that regard (5) Interstitial edema Qualifiers: Edema type: unspecified Qualified Code(s): R60.9 - Edema, unspecified Is this a current diagnosis for this admission?: Yes Plan: Chest x-ray noted and my concern is that this may relate to pulmonary fibrosis. To order a CT of the chest to evaluate in this regard. BNP is normal - Time Time Spent: 50 to 70 Minutes Medications reviewed and adjusted accordingly: Yes Anticipated discharge: Home Within: within 72 hours - Inpatient Certification Based on my medical assessment, after consideration of the patient's comorbidities, presenting symptoms, or acuity I expect that the services needed warrant INPATIENT care.: Yes I certify that my determination is in accordance with my understanding of Medicare's requirements for reasonable and necessary INPATIENT services [42 CFR 412.3e].: Yes Medical Necessity: Need for Nebulizer Therapy and Monitoring of Response
[2017-04-24] MEDS: BUDESONIDE NEB 0.5 MG/2 ML AMPUL NEB SCH (19:38)
[2017-04-24] MEDS: ACETYLCYSTEINE 20% SOLN 800 MG/4 ML VIAL.NEB NEB SCH (19:39)
[2017-04-24] MEDS ORDERED: ACETYLCYSTEINE 20% SOLN 800 MG/4 ML VIAL.NEB NEB SCH (20:00)
[2017-04-24] MEDS: GUAIFENESIN 600 MG TABLET.SA PO SCH (22:33)
--- NOTE | 2017-04-24 22:40 | EKG REPORT ---
SEVERITY:- ABNORMAL ECG - SINUS TACHYCARDIA PROBABLE INFERIOR INFARCT, OLD ANTERIOR INFARCT, AGE INDETERMINATE : Confirmed by: Giselle Martinez 24-Apr-2017 22:40:04
[2017-04-25] MEDS: METHYLPREDNISOLONE INJ 40 MG/1 ML SDV IV SCH ×3 (05:56→22:02)
[2017-04-25 07:26] LABS: ABSOLUTE LYMPHOCYTES (AUTO) 0.8 10^3/uL (0.5-4.7); ABSOLUTE MONOCYTES (AUTO) 0.4 10^3/uL (0.1-1.4); ABSOLUTE NEUT (AUTO) 6.1 10^3/uL (1.7-8.2); BASOPHILS % (AUTO) 0.1 % (0-2); HEMATOCRIT 46.7 % (37.9-51.0); HEMOGLOBIN 15.9 g/dL (13.5-17.0); LYMPHOCYTES % (AUTO) 10.4 % (13-45); MEAN CORPUSCULAR HEMOGLOBIN 31.9 pg (27.0-33.4); MEAN CORPUSCULAR HGB CONC 34.1 g/dL (32.0-36.0); MEAN CORPUSCULAR VOLUME 94 fl (80-97); RED BLOOD COUNT 4.98 10^6/uL (4.35-5.55); RED CELL DISTRIBUTION WIDTH 13.2 % (11.5-14.0); SEGMENTED NEUTROPHILS % (AUTO) 83.5 % (42-78); WHITE BLOOD COUNT 7.3 10^3/uL (4.0-10.5)
[2017-04-25 07:47] LABS: ANION GAP 9 (5-19); BLOOD UREA NITROGEN 17 mg/dL (7-20); CALCIUM 9.6 mg/dL (8.4-10.2); CARBON DIOXIDE 37 mmol/L (22-30); CHLORIDE 95 mmol/L (98-107); CREATININE RESULT 0.85 mg/dL (0.52-1.25); GLUCOSE 133 mg/dL (75-110); MAGNESIUM 2.2 mg/dL (1.6-2.3); POTASSIUM 4.9 mmol/L (3.6-5.0); SODIUM 141.1 mmol/L (137-145)
[2017-04-25] MEDS: BUDESONIDE NEB 0.5 MG/2 ML AMPUL NEB SCH ×2 (08:35→19:29)
[2017-04-25] MEDS: IPRATROPIUM/ALBUTEROL 0.5-2.5 MG/3 ML AMPUL NEB SCH ×3 (08:35→19:29)
[2017-04-25] MEDS: ACETYLCYSTEINE 20% SOLN 800 MG/4 ML VIAL.NEB NEB SCH ×3 (08:36→19:29)
--- NOTE | 2017-04-25 09:16 | RADIOLOGY REPORT (SQ) ---
EXAM DESCRIPTION: CT CHEST WITHOUT COMPLETED DATE/TIME: 04/25/2017 7:43 am REASON FOR STUDY: eval for pulmonary fibrosis COMPARISON: 06/16/2016 TECHNIQUE: CT scan performed of the chest without intravenous contrast. Images reviewed with lung, soft tissue and bone windows. Reconstructed coronal and sagittal MPR images reviewed. All images st ored on PACS. All CT scanners at this facility use dose modulation, iterative reconstruction, and/or weight based d osing when appropriate to reduce radiation dose to as low as reasonably achievable (ALARA). [facility]: Dose Right [facility]: CareDose [facility]: Dose Right [facility]: Teradose 4D [facility]: [employer] RADIATION DOSE: CT Rad equipment meets quality standard of care and radiation dose reduction techniq ues were employed. CTDIvol: 8.1 mGy. DLP: 356 mGy-cm. mGy. LIMITATIONS: No technical limitations. FINDINGS: LUNGS AND PLEURA: Diffuse interlobular septal thickening. Bronchiectasis in the lower lob es. No honeycombing. No effusions. HILAR AND MEDIASTINAL STRUCTURES: No identified masses or abnormal nodes. No obvious aneurysm. HEART AND VASCULAR STRUCTURES: No aneurysm. No pericardial effusion. UPPER ABDOMEN: No significant findings. Limited exam. THYROID AND OTHER SOFT TISSUES: No masses. No adenopathy. BONES: No significant finding. HARDWARE: None in the chest. OTHER: No other significant findings. IMPRESSION: Chronic interstitial lung disease. No fibrosis. TECHNICAL DOCUMENTATION: JOB ID: [id number] Quality ID # [id number]: Final reports with documentation of one or more dose reduction techniques (e.g., Au tomated exposure control, adjustment of the mA and/or kV according to patient size, use of iterative reconstruction technique) 2010 [employer]- All Rights Reserved
[2017-04-25] MEDS: LEVOFLOXACIN 750 MG TABLET PO SCH (09:44)
[2017-04-25] MEDS: THIAMINE HCL 100 MG TABLET PO SCH (09:44)
[2017-04-25] MEDS: ROFLUMILAST 500 MCG TABLET PO SCH (09:44)
[2017-04-25] MEDS: ENOXAPARIN SODIUM INJ 40 MG/0.4 ML DISP.SYRIN SUBCUT SCH (09:44)
[2017-04-25] MEDS: MULTIVITAMIN TABLET PO SCH (09:44)
[2017-04-25] MEDS: GUAIFENESIN 600 MG TABLET.SA PO SCH ×2 (09:44→22:01)
[2017-04-25] MEDS: DOCUSATE SODIUM 100 MG CAPSULE PO SCH (09:44)
[2017-04-25] MEDS ORDERED: ONDANSETRON HCL INJ/PF 4 MG/2 ML SDV IV PRN (13:30)
--- NOTE | 2017-04-25 14:36 | PDOC PROGRESS REPORT ---
Subjective Progress Note for:: 04/25/17 Subjective:: Patient admits feeling better. ROS All systems have been reviewed and negative except as in subjective All significant laboratories and diagnostics have been reviewed Reason For Visit: ACUTE COPD EXACERBATION Physical Exam Vital Signs: Temp Pulse Resp BP Pulse Ox 97.8 F 90 24 H 116/74 97 04/25/17 03:57 04/25/17 03:57 04/25/17 04:20 04/25/17 03:57 04/25/17 04:20 Intake & Output 04/24/17 04/25/17 04/26/17 06:59 06:59 06:59 Intake Total 340 Balance 340 Results Laboratory Results: 04/25/17 06:51 04/25/17 06:51 WBC 7.3 RBC 4.98 Hgb 15.9 Hct 46.7 MCV 94 MCH 31.9 MCHC 34.1 RDW 13.2 Plt Count 147 L Seg Neutrophils % 83.5 H Lymphocytes % 10.4 L Monocytes % 6.0 Eosinophils % 0.0 Basophils % 0.1 Absolute Neutrophils 6.1 Absolute Lymphocytes 0.8 Absolute Monocytes 0.4 Absolute Eosinophils 0.0 Absolute Basophils 0.0 04/24/17 04/24/17 18:09 23:50 Troponin I < 0.012 < 0.012 Impressions: Chest X-Ray 04/24/17 11:26 IMPRESSION: Interstitial pulmonary edema superimposed on obstructive pulmonary disease. Assessment & Plan - Diagnosis (1) Alcohol abuse Is this a current diagnosis for this admission?: Yes Plan: We will continue Xanax, thiamine and multivitamins. Watch for withdrawal (2) COPD exacerbation Is this a current diagnosis for this admission?: Yes Plan: Continue DuoNeb's, Pulmicort, Mucomyst, Daliresp IV steroids, Levaquin p.o. To change bipa to at bedtime (RT informed). Flu negative (3) Acute and chronic respiratory failure with hypercapnia Is this a current diagnosis for this admission?: Yes Plan: Continue BiPAP with oxygen supplementation at bedtime. Blood gases on admission were baseline (4) Tobacco dependence Is this a current diagnosis for this admission?: Yes Plan: Patient has been strongly advised to quit and is located in that regard (5) Interstitial edema Qualifiers: Edema type: unspecified Qualified Code(s): R60.9 - Edema, unspecified Is this a current diagnosis for this admission?: Yes Plan: Due to chronic interstitial lung disease. Bronchiectasis present. No pulmonary fibrosis noted on CT of chest. Will continue with present management - Time Time Spent with patient: 15-24 minutes Medications reviewed and adjusted accordingly: Yes Anticipated discharge: Home with Homehealth Within: within 72 hours - Inpatient Certification Based on my medical assessment, after consideration of the patient's comorbidities, presenting symptoms, or acuity I expect that the services needed warrant INPATIENT care.: Yes I certify that my determination is in accordance with my understanding of Medicare's requirements for reasonable and necessary INPATIENT services [42 CFR 412.3e].: Yes Medical Necessity: Need for Nebulizer Therapy and Monitoring of Response
[2017-04-25] MEDS: GABAPENTIN 100 MG CAPSULE PO SCH (22:01)
[2017-04-26] MEDS: GABAPENTIN 100 MG CAPSULE PO SCH ×3 (05:32→21:57)
[2017-04-26] MEDS: METHYLPREDNISOLONE INJ 40 MG/1 ML SDV IV SCH ×3 (05:32→21:56)
[2017-04-26] MEDS: ACETYLCYSTEINE 20% SOLN 800 MG/4 ML VIAL.NEB NEB SCH ×3 (07:47→19:33)
[2017-04-26] MEDS: IPRATROPIUM/ALBUTEROL 0.5-2.5 MG/3 ML AMPUL NEB SCH ×3 (07:47→19:32)
[2017-04-26] MEDS: BUDESONIDE NEB 0.5 MG/2 ML AMPUL NEB SCH ×2 (07:47→19:33)
[2017-04-26] MEDS: THIAMINE HCL 100 MG TABLET PO SCH (09:37)
[2017-04-26] MEDS: DOCUSATE SODIUM 100 MG CAPSULE PO SCH (09:37)
[2017-04-26] MEDS: MULTIVITAMIN TABLET PO SCH (09:37)
[2017-04-26] MEDS: ROFLUMILAST 500 MCG TABLET PO SCH (09:37)
[2017-04-26] MEDS: ASPIRIN 81 MG TABLET, ENT COATED PO SCH (09:37)
[2017-04-26] MEDS: FLUTICASONE NASAL SPRAY 50 MCG/SPRY 120 SPRAY/16 GM NASL SCH (09:37)
[2017-04-26] MEDS: LEVOFLOXACIN 750 MG TABLET PO SCH (09:37)
[2017-04-26] MEDS: GUAIFENESIN 600 MG TABLET.SA PO SCH (09:37)
[2017-04-26] MEDS: ENOXAPARIN SODIUM INJ 40 MG/0.4 ML DISP.SYRIN SUBCUT SCH (09:41)
[2017-04-26] MEDS ORDERED: (PENDING PHARMACY ID) (Dextroamphetamine/Amphetamine [Adderall 20 Mg Tablet] 20 MG) PO SCH (10:00)
[2017-04-26] MEDS ORDERED: ALBUTEROL SULFATE HFA (90 MCG/PUFF) 8 GM MDI (1 MDI/ER DISP) IH PRN (16:54)
[2017-04-26] MEDS ORDERED: IPRATROPIUM/ALBUTEROL 0.5-2.5 MG/3 ML AMPUL NEB ONE (18:00)
[2017-04-26] MEDS ORDERED: BUDESONIDE/FORMOTEROL 160-4.5 MCG 60 PUFF/6 GM MDI IH SCH (18:00)
[2017-04-26] MEDS: MONTELUKAST SODIUM 10 MG TABLET PO SCH (18:46)
[2017-04-26] MEDS: ALBUTEROL SULFATE HFA (90 MCG/PUFF) 200 PUFF/8.5 GM MDI IH PRN (18:48)
[2017-04-26] MEDS: BENZONATATE 100 MG CAPSULE PO PRN (21:56)
[2017-04-26] MEDS: BUDESONIDE/FORMOTEROL 160-4.5 MCG 60 PUFF/6 GM MDI IH SCH (21:57)
[2017-04-27] MEDS: IPRATROPIUM/ALBUTEROL 0.5-2.5 MG/3 ML AMPUL NEB SCH ×5 (00:08→16:18)
[2017-04-27] MEDS: ALBUTEROL SULFATE HFA (90 MCG/PUFF) 200 PUFF/8.5 GM MDI IH PRN ×3 (04:59→23:08)
[2017-04-27] MEDS: GABAPENTIN 100 MG CAPSULE PO SCH ×3 (05:02→22:58)
[2017-04-27] MEDS: METHYLPREDNISOLONE INJ 40 MG/1 ML SDV IV SCH ×3 (05:02→22:57)
[2017-04-27] MEDS: ACETYLCYSTEINE 20% SOLN 800 MG/4 ML VIAL.NEB NEB SCH (07:47)
[2017-04-27] MEDS: BUDESONIDE NEB 0.5 MG/2 ML AMPUL NEB SCH (07:47)
[2017-04-27] MEDS: FLUTICASONE NASAL SPRAY 50 MCG/SPRY 120 SPRAY/16 GM NASL SCH (11:08)
[2017-04-27] MEDS: BUDESONIDE/FORMOTEROL 160-4.5 MCG 60 PUFF/6 GM MDI IH SCH ×2 (11:08→22:58)
[2017-04-27] MEDS: DOCUSATE SODIUM 100 MG CAPSULE PO SCH (11:10)
[2017-04-27] MEDS: ASPIRIN 81 MG TABLET, ENT COATED PO SCH (11:11)
[2017-04-27] MEDS: ROFLUMILAST 500 MCG TABLET PO SCH (11:11)
[2017-04-27] MEDS: LEVOFLOXACIN 750 MG TABLET PO SCH (11:11)
[2017-04-27] MEDS: THIAMINE HCL 100 MG TABLET PO SCH (11:12)
[2017-04-27] MEDS: ENOXAPARIN SODIUM INJ 40 MG/0.4 ML DISP.SYRIN SUBCUT SCH (11:12)
[2017-04-27] MEDS: MULTIVITAMIN TABLET PO SCH (11:12)
[2017-04-27] MEDS ORDERED: NORMAL SALINE 500 ML IV PRN (17:34)
[2017-04-27] MEDS ORDERED: METOPROLOL TARTRATE PF/INJ 5 MG/5 ML SDV IV PRN (17:37)
[2017-04-27] MEDS: MONTELUKAST SODIUM 10 MG TABLET PO SCH (18:28)
[2017-04-27] MEDS: ACETYLCYSTEINE 10% NEB 400 MG/4 ML VIAL NEB SCH ×2 (20:05→23:55)
[2017-04-27] MEDS: LEVALBUTEROL HCL NEB 1.25 MG/3 ML AMPUL NEB SCH ×2 (20:06→23:55)
[2017-04-27] MEDS ORDERED: ACETYLCYSTEINE 10% NEB 400 MG/4 ML VIAL NEB SCH (22:00)
[2017-04-27] MEDS: BENZONATATE 100 MG CAPSULE PO PRN (22:59)
[2017-04-28] MEDS: ALBUTEROL SULFATE HFA (90 MCG/PUFF) 200 PUFF/8.5 GM MDI IH PRN ×6 (04:12→22:43)
[2017-04-28] MEDS: LEVALBUTEROL HCL NEB 1.25 MG/3 ML AMPUL NEB SCH ×5 (04:16→20:30)
[2017-04-28] MEDS: ACETYLCYSTEINE 10% NEB 400 MG/4 ML VIAL NEB SCH ×5 (04:16→20:30)
[2017-04-28] MEDS: METHYLPREDNISOLONE INJ 40 MG/1 ML SDV IV SCH ×3 (06:48→22:41)
[2017-04-28] MEDS: GABAPENTIN 100 MG CAPSULE PO SCH ×3 (06:49→22:42)
[2017-04-28] MEDS: DOCUSATE SODIUM 100 MG CAPSULE PO SCH (09:28)
[2017-04-28] MEDS: ASPIRIN 81 MG TABLET, ENT COATED PO SCH (09:28)
[2017-04-28] MEDS: THIAMINE HCL 100 MG TABLET PO SCH (09:28)
[2017-04-28] MEDS: LEVOFLOXACIN 750 MG TABLET PO SCH (09:29)
[2017-04-28] MEDS: MULTIVITAMIN TABLET PO SCH (09:29)
[2017-04-28] MEDS: FLUTICASONE NASAL SPRAY 50 MCG/SPRY 120 SPRAY/16 GM NASL SCH (09:29)
[2017-04-28] MEDS: BUDESONIDE/FORMOTEROL 160-4.5 MCG 60 PUFF/6 GM MDI IH SCH ×2 (09:30→22:43)
[2017-04-28] MEDS: ENOXAPARIN SODIUM INJ 40 MG/0.4 ML DISP.SYRIN SUBCUT SCH (09:31)
--- NOTE | 2017-04-28 15:25 | PDOC PROGRESS REPORT ---
Subjective Progress Note for:: 04/26/17 Subjective:: Patient admitted for COPD exacerbation. Patient having difficulty breathing and wants to be placed on his home therapies. Patient will not use his BiPAP stating that he feels smothered. Reason For Visit: ACUTE COPD EXACERBATION Physical Exam Vital Signs: Temp Pulse Resp BP Pulse Ox 98.5 F 109 H 18 122/71 91 L 04/26/17 14:55 04/26/17 19:00 04/26/17 14:55 04/26/17 14:55 04/26/17 14:55 General appearance: PRESENT: no acute distress, well-developed, well-nourished Head exam: PRESENT: normocephalic Eye exam: PRESENT: EOMI. ABSENT: scleral icterus Ear exam: PRESENT: normal external ear exam Mouth exam: PRESENT: moist Teeth exam: PRESENT: edentulous Neck exam: ABSENT: carotid bruit, JVD, lymphadenopathy, thyromegaly Respiratory exam: PRESENT: accessory muscle use, decreased breath sounds, wheezes. ABSENT: rales, rhonchi, unlabored - Patient is Cardiovascular exam: PRESENT: RRR. ABSENT: diastolic murmur, rubs, systolic murmur GI/Abdominal exam: PRESENT: distended - protuberant, normal bowel sounds, soft. ABSENT: guarding, mass, organolmegaly, rebound, tenderness Rectal exam: PRESENT: deferred Extremities exam: PRESENT: full ROM. ABSENT: calf tenderness, clubbing, pedal edema Neurological exam: PRESENT: alert, awake, oriented to person, oriented to place , oriented to time, oriented to situation, CN II-XII grossly intact. ABSENT: motor sensory deficit Psychiatric exam: PRESENT: appropriate affect, normal mood. ABSENT: homicidal ideation, suicidal ideation Skin exam: PRESENT: dry, intact, warm. ABSENT: cyanosis, rash Results Laboratory Results: 04/25/17 06:51 04/25/17 06:51 04/24/17 04/24/17 18:09 23:50 Troponin I < 0.012 < 0.012 Impressions: Chest CT 04/24/17 00:00 IMPRESSION: Chronic interstitial lung disease. No fibrosis. Chest X-Ray 04/24/17 11:26 IMPRESSION: Interstitial pulmonary edema superimposed on obstructive pulmonary disease. Assessment & Plan - Diagnosis (1) COPD exacerbation Is this a current diagnosis for this admission?: Yes Plan: Patient still with difficulty breathing. Patient refusing to use the BiPAP. Continue Solu-Medrol however increased to 60 units 3 times daily. DuoNeb every 4. Continue Pulmicort. Continue Levaquin. Continue Mucomyst. (2) Acute and chronic respiratory failure with hypercapnia Is this a current diagnosis for this admission?: Yes Plan: Patient blood gases appear to be at baseline baseline. Patient will not use the BiPAP although this will help with his breathing. Patient states he feels mother. Will continue with supplemental oxygen. (3) Tobacco dependence Is this a current diagnosis for this admission?: Yes Plan: Counseled on smoking cessation. (4) Alcohol abuse Is this a current diagnosis for this admission?: Yes Plan: Continue supportive care with Xanax and multivitamin. - Time Time Spent with patient: Less than 15 minutes Anticipated discharge: Home Within: within 72 hours - Inpatient Certification Medical Necessity: Need Close Monitoring Due to Risk of Patient Decompensation
--- NOTE | 2017-04-28 16:11 | PDOC PROGRESS REPORT ---
Subjective Progress Note for:: 04/27/17 Subjective:: Patient admitted for COPD exacerbation. Patient states he feels a little bit better today. Nurse patient still will not use the BiPAP. Reason For Visit: ACUTE COPD EXACERBATION Physical Exam Vital Signs: Temp Pulse Resp BP Pulse Ox 98.6 F 111 H 30 H 127/83 H 95 04/27/17 16:14 04/27/17 16:18 04/27/17 18:35 04/27/17 16:14 04/27/17 18:35 Intake & Output General appearance: PRESENT: no acute distress, well-nourished Head exam: PRESENT: normocephalic Eye exam: PRESENT: EOMI. ABSENT: scleral icterus Ear exam: PRESENT: normal external ear exam Mouth exam: PRESENT: moist Teeth exam: PRESENT: edentulous Neck exam: ABSENT: carotid bruit, JVD, lymphadenopathy, thyromegaly Respiratory exam: PRESENT: accessory muscle use, decreased breath sounds, wheezes. ABSENT: rales, rhonchi Cardiovascular exam: PRESENT: tachycardia. ABSENT: diastolic murmur, rubs, systolic murmur GI/Abdominal exam: PRESENT: distended, normal bowel sounds, soft. ABSENT: guarding, mass, organolmegaly, rebound, tenderness Rectal exam: PRESENT: deferred Extremities exam: PRESENT: full ROM. ABSENT: calf tenderness, clubbing, pedal edema Neurological exam: PRESENT: alert, awake, oriented to person, oriented to place , oriented to time, oriented to situation, CN II-XII grossly intact. ABSENT: motor sensory deficit Psychiatric exam: PRESENT: appropriate affect, normal mood. ABSENT: homicidal ideation, suicidal ideation Skin exam: PRESENT: dry, intact, warm. ABSENT: cyanosis, rash Results Laboratory Results: 04/25/17 06:51 04/25/17 06:51 04/24/17 04/24/17 18:09 23:50 Troponin I < 0.012 < 0.012 Impressions: Chest CT 04/24/17 00:00 IMPRESSION: Chronic interstitial lung disease. No fibrosis. Chest X-Ray 04/24/17 11:26 IMPRESSION: Interstitial pulmonary edema superimposed on obstructive pulmonary disease. Assessment & Plan - Diagnosis (1) COPD exacerbation Is this a current diagnosis for this admission?: Yes Plan: Patient still with difficulty breathing. Still very short of breath with minimal activity. Patient not comfortable washing himself and will wait for his to help. He is too tired to do it himself. Continue IV steroids, inhailed steriod, antibiotics and mucomyst. Patient still will not use the bipap. (2) Acute and chronic respiratory failure with hypercapnia Is this a current diagnosis for this admission?: Yes Plan: Patient blood gases appear to be at baseline baseline. Patient will not use the BiPAP although this will help with his breathing. Will continue with supplemental oxygen. (3) Alcohol abuse Is this a current diagnosis for this admission?: Yes Plan: Continue supportive care with Xanax and multivitamin. (4) Tachycardia Plan: Change to xoponex from duonebs. Will give a small fluids bolus and start PRN metoprolol. (5) Tobacco dependence Is this a current diagnosis for this admission?: Yes Plan: Counseled on smoking cessation. Nicotine patch. - Time Time Spent with patient: Less than 15 minutes Anticipated discharge: Home with Homehealth Within: within 72 hours - Inpatient Certification Medical Necessity: Need Close Monitoring Due to Risk of Patient Decompensation
--- NOTE | 2017-04-28 16:16 | PDOC PROGRESS REPORT ---
Subjective Progress Note for:: 04/28/17 Subjective:: Patient admitted for COPD exacerbation. Patient feels a little better. He attempted to use the bipap a little. Patient states that he is always tired. He reports having had a sleep study that was negative. Reason For Visit: ACUTE COPD EXACERBATION Physical Exam Vital Signs: Temp Pulse Resp BP Pulse Ox 98.6 F 104 H 20 124/84 94 04/28/17 11:31 04/28/17 14:00 04/28/17 12:08 04/28/17 11:31 04/28/17 12:08 Intake & Output 04/27/17 04/28/17 04/29/17 06:59 06:59 06:59 Intake Total 1650 2920 Output Total 1850 Balance -200 2920 Weight 74.3 kg 73.8 kg General appearance: PRESENT: mild distress, well-developed, well-nourished Head exam: PRESENT: normocephalic Eye exam: PRESENT: EOMI. ABSENT: scleral icterus Mouth exam: PRESENT: moist Teeth exam: PRESENT: edentulous Neck exam: ABSENT: carotid bruit, JVD, lymphadenopathy, thyromegaly Respiratory exam: PRESENT: decreased breath sounds. ABSENT: rales, rhonchi, wheezes Cardiovascular exam: PRESENT: RRR. ABSENT: diastolic murmur, rubs, systolic murmur Pulses: PRESENT: normal dorsalis pedis pul Vascular exam: PRESENT: normal capillary refill GI/Abdominal exam: PRESENT: distended - portuberant, normal bowel sounds, soft. ABSENT: guarding, mass, organolmegaly, rebound, tenderness Rectal exam: PRESENT: deferred Extremities exam: PRESENT: full ROM. ABSENT: calf tenderness, clubbing, pedal edema Neurological exam: PRESENT: alert, awake, oriented to person, oriented to place , oriented to time, oriented to situation, CN II-XII grossly intact. ABSENT: motor sensory deficit Psychiatric exam: PRESENT: appropriate affect, normal mood. ABSENT: homicidal ideation, suicidal ideation Skin exam: PRESENT: dry, intact, warm. ABSENT: cyanosis, rash Results Laboratory Results: 04/25/17 06:51 04/25/17 06:51 04/24/17 04/24/17 18:09 23:50 Troponin I < 0.012 < 0.012 Impressions: Chest CT 04/24/17 00:00 IMPRESSION: Chronic interstitial lung disease. No fibrosis. Chest X-Ray 04/24/17 11:26 IMPRESSION: Interstitial pulmonary edema superimposed on obstructive pulmonary disease. Assessment & Plan - Diagnosis (1) COPD exacerbation Is this a current diagnosis for this admission?: Yes Plan: Patient still with difficulty breathing. Still very short of breath with minimal activity. Patient not comfortable washing himself and will wait for his to help. He is too tired to do it himself. Continue IV steroids, inhailed steriod, antibiotics and mucomyst. Patient attempting to use bipap. Will check echo to rule out any cardiac etiology that may be contributing to his symptoms. (2) Acute and chronic respiratory failure with hypercapnia Is this a current diagnosis for this admission?: Yes Plan: Stable but will continue to encourage patient to use bipap as tolerated. (3) Alcohol abuse Is this a current diagnosis for this admission?: Yes Plan: Continue supportive care with Xanax and multivitamin. No current signs of withdrawal. (4) Tachycardia Plan: Change to xoponex from duonebs. Will started patient on metoprolol XL 25mg. Will continue metoprolol IV push PRN for HR>110. (5) Tobacco dependence Is this a current diagnosis for this admission?: Yes Plan: Counseled on smoking cessation. Nicotine patch. (6) Fatigue Qualifiers: Fatigue type: chronic, unspecified Qualified Code(s): R53.82 - Chronic fatigue, unspecified Is this a current diagnosis for this admission?: Yes Plan: Patient reports chronic fatigue. This may be due to his COPD. Will check B12, folate, thiamine, TSH and T4. - Time Time Spent with patient: Less than 15 minutes - Inpatient Certification Medical Necessity: Need Close Monitoring Due to Risk of Patient Decompensation
[2017-04-28 16:34] LABS: THYROID STIMULATING HORMONE 0.16 uIU/mL (0.47-4.68)
[2017-04-28] MEDS: MONTELUKAST SODIUM 10 MG TABLET PO SCH (18:11)
[2017-04-29] MEDS: LEVALBUTEROL HCL NEB 1.25 MG/3 ML AMPUL NEB SCH ×7 (00:11→23:50)
[2017-04-29] MEDS: ACETYLCYSTEINE 10% NEB 400 MG/4 ML VIAL NEB SCH ×7 (00:12→23:50)
[2017-04-29] MEDS: METHYLPREDNISOLONE INJ 40 MG/1 ML SDV IV SCH ×3 (05:40→22:48)
[2017-04-29] MEDS: ALBUTEROL SULFATE HFA (90 MCG/PUFF) 200 PUFF/8.5 GM MDI IH PRN ×6 (05:40→22:51)
[2017-04-29] MEDS: GABAPENTIN 100 MG CAPSULE PO SCH ×3 (05:40→22:48)
[2017-04-29] MEDS: METOPROLOL SUCCINATE 25 MG TAB.SR.24H PO SCH (09:42)
[2017-04-29] MEDS: THIAMINE HCL 100 MG TABLET PO SCH (09:43)
[2017-04-29] MEDS: LEVOFLOXACIN 750 MG TABLET PO SCH (09:43)
[2017-04-29] MEDS: DOCUSATE SODIUM 100 MG CAPSULE PO SCH (09:43)
[2017-04-29] MEDS: ASPIRIN 81 MG TABLET, ENT COATED PO SCH (09:43)
[2017-04-29] MEDS: BUDESONIDE/FORMOTEROL 160-4.5 MCG 60 PUFF/6 GM MDI IH SCH ×2 (09:44→22:48)
[2017-04-29] MEDS: MULTIVITAMIN TABLET PO SCH (09:44)
[2017-04-29] MEDS: NICOTINE 21 MG/24 HR PATCH.TD24 TD SCH (09:44)
[2017-04-29] MEDS: FLUTICASONE NASAL SPRAY 50 MCG/SPRY 120 SPRAY/16 GM NASL SCH (09:45)
[2017-04-29] MEDS: TORSEMIDE 20 MG TABLET PO SCH (09:46)
[2017-04-29] MEDS: ENOXAPARIN SODIUM INJ 40 MG/0.4 ML DISP.SYRIN SUBCUT SCH (09:49)
[2017-04-29] MEDS: POTASSIUM CHLORIDE 10 MEQ TABLET.SA PO SCH (09:58)
--- NOTE | 2017-04-29 13:15 | XCELERA REPORT ---
[address] [address] Transthoracic Echocardiogram Report Name: MANI FLYNN Age: 66 yrs Gender: Male : 1950 Patient Status: Inpatient Patient Location: [address] [place] [address] Study Date: 04/29/2017 09:17 AM Height: 71 in Weight: 162 lb BSA: 1.9 m2 Procedure: A two-dimensional transthoracic echocardiogram with color flow and Doppler was performed. Study Quality: Technically suboptimal. Reason For Study: SOB History: Shortness of breath. Ordering Physician: JONAH GODFREY Performed By: Lisa Craft Interpretation Summary The left ventricle is normal in size. There is normal left ventricular wall thickness. LV EF is 65% Left ventricular systolic function is normal. Doppler measurements suggest impaired left ventricular relaxation, which is associated with grade I/IV or mild diastolic dysfunction The left ventricular wall motion is normal. There is no thrombus. The right ventricle is normal in size and function. The left atrial size is normal. There is no evidence of mitral valve prolapse. There is no mitral valve stenosis. There is a trace amount of mitral regurgitation There is no aortic valve stenosis There is no LVOT obstruction. No aortic regurgitation is present. There is no tricuspid stenosis. There is a trace amount of tricuspid regurgitation Right ventricular systolic pressure is normal. rvsp IS 25 MM OF hG , WITH ra MEAN OF 5. There is no pericardial effusion. MMode/2D Measurements & Calculations RVDd: 2.1 cm LVIDd: 4.5 cm FS: 33.5 % Ao root diam: 3.4 cm IVSd: 0.95 cm LVIDs: 3.0 cm EDV(Teich): 92.0 ml LVPWd: 0.87 cmESV(Teich): 34.6 ml Ao root area: 9.1 cm2 EF(Teich): 62.4 % LA dimension: 2.7 cm LVOT diam: 2.1 cm LVOT area: 3.5 cm2 Doppler Measurements & Calculations MV E max alicia: MV P1/2t max alicia: Ao V2 max: LV V1 max P.0 cm/sec 78.5 cm/sec 173.7 cm/sec 6.6 mmHg MV A max alicia: MV P1/2t: 70.0 msec Ao max PG: LV V1 max: 101.2 cm/sec MVA(P1/2t): 3.1 cm2 12.1 mmHg 128.3 cm/sec MV E/A: 0.76 MV dec slope: MYLA(V,D): 2.6 cm2 328.5 cm/sec2 PA V2 max: TR max alicia: 49.0 cm/sec 222.0 cm/sec PA max PG: TR max P.7 mmHg 0.96 mmHg Left Ventricle The left ventricle is normal in size. There is normal left ventricular wall thickness. LV EF is 65%. Left ventricular systolic function is normal. Doppler measurements suggest impaired left ventricular relaxation, which is associated with grade I/IV or mild diastolic dysfunction. The left ventricular wall motion is normal. There is no thrombus. There is no ventricular septal defect visualized. Right Ventricle The right ventricle is normal in size and function. Atria The right atrium is normal. The left atrial size is normal. The interatrial septum is intact with no evidence for an atrial septal defect. Mitral Valve There is no evidence of mitral valve prolapse. There is no vegetation seen on the mitral valve. There is no mitral valve stenosis. There is a trace amount of mitral regurgitation. Aortic Valve There is no aortic valvular vegetation. There is no aortic valve stenosis. There is no LVOT obstruction. No aortic regurgitation is present. Tricuspid Valve There is no tricuspid stenosis. There is a trace amount of tricuspid regurgitation. Right ventricular systolic pressure is normal. rvsp IS 25 MM OF hG , WITH ra MEAN OF 5. Pulmonic Valve There is no pulmonic valvular stenosis. There is no pulmonic valvular regurgitation. Great Vessels The aortic root is normal size. Effusions There is no pericardial effusion. : JONAH GODFREY > Stefany Corona
[2017-04-29] MEDS: ALPRAZOLAM 0.25 MG TABLET PO PRN ×2 (13:49→22:49)
[2017-04-29] MEDS: MONTELUKAST SODIUM 10 MG TABLET PO SCH (18:20)
[2017-04-30] MEDS: LEVALBUTEROL HCL NEB 1.25 MG/3 ML AMPUL NEB SCH ×5 (04:11→19:56)
[2017-04-30] MEDS: ACETYLCYSTEINE 10% NEB 400 MG/4 ML VIAL NEB SCH ×3 (04:11→12:21)
--- NOTE | 2017-04-30 05:57 | PDOC PROGRESS REPORT ---
Subjective Progress Note for:: 04/29/17 Subjective:: Patient admitted for COPD exacerbation. She states he is starting to feel better. Advised patient that he should walk around if tolerated with oxygen tank. Did call Dr. 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 He stated that patient COPD exacerbation may take up to a week to improve. Reason For Visit: ACUTE COPD EXACERBATION Physical Exam Vital Signs: Temp Pulse Resp BP Pulse Ox 98.4 F 108 H 17 116/76 93 04/29/17 15:07 04/29/17 15:07 04/29/17 15:07 04/29/17 15:07 04/29/17 15:07 Intake & Output 04/28/17 04/29/17 04/30/17 06:59 06:59 06:59 Intake Total 2920 2270 621 Output Total 725 Balance 2920 2270 -104 Weight 73.8 kg 74.9 kg General appearance: PRESENT: no acute distress, well-developed, well-nourished Head exam: PRESENT: normocephalic Eye exam: ABSENT: scleral icterus Mouth exam: PRESENT: moist Teeth exam: PRESENT: edentulous Neck exam: ABSENT: carotid bruit, JVD, lymphadenopathy, thyromegaly Respiratory exam: PRESENT: decreased breath sounds, wheezes. ABSENT: accessory muscle use, rales, rhonchi Cardiovascular exam: PRESENT: RRR. ABSENT: diastolic murmur, rubs, systolic murmur Pulses: PRESENT: normal dorsalis pedis pul Vascular exam: PRESENT: normal capillary refill GI/Abdominal exam: PRESENT: normal bowel sounds, other - portuberant. ABSENT: distended, guarding, mass, organolmegaly, rebound, tenderness Rectal exam: PRESENT: deferred Extremities exam: PRESENT: full ROM. ABSENT: calf tenderness, clubbing, pedal edema Neurological exam: PRESENT: alert, awake, oriented to person, oriented to place , oriented to time, oriented to situation, CN II-XII grossly intact. ABSENT: motor sensory deficit Psychiatric exam: PRESENT: appropriate affect, normal mood. ABSENT: homicidal ideation, suicidal ideation Skin exam: PRESENT: dry, intact, warm. ABSENT: cyanosis, rash Results Laboratory Results: 04/25/17 06:51 04/25/17 06:51 12/10/17 12/10/17 18:09 23:50 Troponin I < 0.012 < 0.012 Impressions: Chest CT 04/24/17 00:00 IMPRESSION: Chronic interstitial lung disease. No fibrosis. Chest X-Ray 04/24/17 11:26 IMPRESSION: Interstitial pulmonary edema superimposed on obstructive pulmonary disease. Assessment & Plan - Diagnosis (1) COPD exacerbation Is this a current diagnosis for this admission?: Yes Plan: Patient still with significant shortness of breath with minimal activity. Patient states he is short of breath at baseline however this is worse. Patient having difficulty just getting up and walk to the bathroom and normally this is not an issue. Patient states he can feel that he somewhat getting better but it is taking some time. This was discussed with Dr. Mcdaniel which stated that is not unusual for him to take about a week to improve. Today is day 5. Patient continued on IV steroids. Patient on p.o. Levaquin. Patient receiving Xopenex nebs along with Mucomyst in addition to other inhalers. Patient also given a flutter valve. He does have mild diastolic dysfunction on his cardiac echo. Patient was started on a low-dose diuretic to see if this will assist with some of his respiratory symptoms. (2) Acute and chronic respiratory failure with hypercapnia Is this a current diagnosis for this admission?: Yes Plan: Patient continues to use his supplemental oxygen. Patient would not use the BiPAP therefore the machine was removed from his room. (3) Alcohol abuse Is this a current diagnosis for this admission?: Yes Plan: Continue supportive care with Xanax and multivitamin. No current signs of withdrawal. (4) Tachycardia Plan: Is likely secondary to his respiratory status. Patient heart rate is beginning to normalize. Patient was started on a low-dose beta-janeen. (5) Tobacco dependence Is this a current diagnosis for this admission?: Yes Plan: Counseled on smoking cessation. Nicotine patch. (6) Fatigue Qualifiers: Fatigue type: chronic, unspecified Qualified Code(s): R53.82 - Chronic fatigue, unspecified Is this a current diagnosis for this admission?: Yes Plan: Patient reports chronic fatigue. This may be due to his COPD. Patient B12, folate and T4 are within normal limits. Patient TSH is low however this may be affected by the use of the high-dose steroids. Thiamine result is still pending. (7) Diastolic dysfunction Is this a current diagnosis for this admission?: Yes Plan: Has mild grade 1 diastolic dysfunction. She does not appear volume overloaded however patient CT scan did show some interstitial edema. Patient started on low-dose torsemide along with potassium supplement. - Time Time Spent with patient: 15-24 minutes Anticipated discharge: Home Within: within 48 hours - Inpatient Certification Medical Necessity: Significant Comorbidiites Make Outpatient Treatment Too Risky , Need Close Monitoring Due to Risk of Patient Decompensation
[2017-04-30] MEDS: GABAPENTIN 100 MG CAPSULE PO SCH ×3 (06:05→22:43)
[2017-04-30] MEDS: METHYLPREDNISOLONE INJ 40 MG/1 ML SDV IV SCH ×3 (06:20→22:43)
[2017-04-30] MEDS: ALBUTEROL SULFATE HFA (90 MCG/PUFF) 200 PUFF/8.5 GM MDI IH PRN ×3 (07:11→17:43)
[2017-04-30] MEDS: DOCUSATE SODIUM 100 MG CAPSULE PO SCH (09:36)
[2017-04-30] MEDS: ASPIRIN 81 MG TABLET, ENT COATED PO SCH (09:36)
[2017-04-30] MEDS: ENOXAPARIN SODIUM INJ 40 MG/0.4 ML DISP.SYRIN SUBCUT SCH (09:36)
[2017-04-30] MEDS: FLUTICASONE NASAL SPRAY 50 MCG/SPRY 120 SPRAY/16 GM NASL SCH (09:37)
[2017-04-30] MEDS: BUDESONIDE/FORMOTEROL 160-4.5 MCG 60 PUFF/6 GM MDI IH SCH ×2 (09:37→22:43)
[2017-04-30] MEDS: METOPROLOL SUCCINATE 25 MG TAB.SR.24H PO SCH (09:39)
[2017-04-30] MEDS: ALPRAZOLAM 0.25 MG TABLET PO PRN ×2 (09:39→17:43)
[2017-04-30] MEDS: THIAMINE HCL 100 MG TABLET PO SCH (09:40)
[2017-04-30] MEDS: LEVOFLOXACIN 750 MG TABLET PO SCH (09:40)
[2017-04-30] MEDS: MULTIVITAMIN TABLET PO SCH (09:40)
[2017-04-30] MEDS: TORSEMIDE 20 MG TABLET PO SCH (09:41)
[2017-04-30] MEDS: POTASSIUM CHLORIDE 10 MEQ TABLET.SA PO SCH (09:42)
[2017-04-30] MEDS: NICOTINE 21 MG/24 HR PATCH.TD24 TD SCH (09:42)
[2017-04-30] MEDS ORDERED: SORBITOL 70% SOLUTION 30 ML UDC PO ONE (15:00)
[2017-04-30] MEDS ORDERED: BISACODYL 5 MG TABEC PO ONE (15:00)
[2017-04-30] MEDS: MONTELUKAST SODIUM 10 MG TABLET PO SCH (17:43)
[2017-04-30] MEDS: ACETYLCYSTEINE 20% SOLN 800 MG/4 ML VIAL.NEB NEB SCH (19:56)
[2017-05-01] MEDS: LEVALBUTEROL HCL NEB 1.25 MG/3 ML AMPUL NEB SCH ×5 (00:05→20:00)
[2017-05-01] MEDS: ALPRAZOLAM 0.25 MG TABLET PO PRN ×2 (00:07→06:20)
--- NOTE | 2017-05-01 00:07 | PDOC PROGRESS REPORT ---
Subjective Progress Note for:: 04/30/17 Subjective:: Patient admitted for COPD exacerbation. Patient states he slowly feeling better however he does still report feeling bloated in the abdomen and thinks that is due to not having a good bowel movement. Did discuss the patient with Dr. Mcdaniel was that it normally takes in about a week to start feeling better. Patient states that he feels like he is moving air a little bit better today. Reason For Visit: ACUTE COPD EXACERBATION Physical Exam Vital Signs: Temp Pulse Resp BP Pulse Ox 98.5 F 72 18 113/79 94 04/30/17 11:21 04/30/17 16:23 04/30/17 16:23 04/30/17 11:21 04/30/17 16:23 Intake & Output 04/29/17 04/30/17 05/01/17 06:59 06:59 06:59 Intake Total 2270 1532 Output Total 1625 Balance 2270 -93 Weight 74.9 kg 75 kg General appearance: PRESENT: no acute distress, well-nourished Eye exam: ABSENT: scleral icterus Mouth exam: PRESENT: moist Teeth exam: PRESENT: edentulous Neck exam: ABSENT: carotid bruit, JVD, lymphadenopathy, thyromegaly Respiratory exam: PRESENT: decreased breath sounds. ABSENT: rales, rhonchi, unlabored, wheezes Cardiovascular exam: PRESENT: RRR. ABSENT: diastolic murmur, rubs, systolic murmur GI/Abdominal exam: PRESENT: distended, normal bowel sounds, soft. ABSENT: guarding, mass, organolmegaly, rebound, tenderness Rectal exam: PRESENT: deferred Extremities exam: PRESENT: full ROM. ABSENT: calf tenderness, clubbing, pedal edema Neurological exam: PRESENT: alert, awake, oriented to person, oriented to place , oriented to time, oriented to situation, CN II-XII grossly intact. ABSENT: motor sensory deficit Psychiatric exam: PRESENT: appropriate affect, normal mood. ABSENT: homicidal ideation, suicidal ideation Skin exam: PRESENT: dry, intact, warm. ABSENT: cyanosis, rash Results Laboratory Results: 04/25/17 06:51 04/25/17 06:51 04/24/17 04/24/17 18:09 23:50 Troponin I < 0.012 < 0.012 Impressions: Chest CT 04/24/17 00:00 IMPRESSION: Chronic interstitial lung disease. No fibrosis. Chest X-Ray 04/24/17 11:26 IMPRESSION: Interstitial pulmonary edema superimposed on obstructive pulmonary disease. Assessment & Plan - Diagnosis (1) COPD exacerbation Is this a current diagnosis for this admission?: Yes Plan: Patient noting some improvement. Continued IV steroids, Levaquin, bronchodilators and Mucomyst . Patient also given a flutter valve. Will request a tank so that patient can attempt to ambulate in the hallway. (2) Acute and chronic respiratory failure with hypercapnia Is this a current diagnosis for this admission?: Yes Plan: Patient continues to use his supplemental oxygen. Patient refuses to use bipap. (3) Alcohol abuse Is this a current diagnosis for this admission?: Yes Plan: Continue supportive care with Xanax and multivitamin. No current signs of withdrawal. (4) Tachycardia Plan: Is likely secondary to his respiratory status. Patient heart rate is beginning to normalize. Continue low dose beta janeen. (5) Tobacco dependence Is this a current diagnosis for this admission?: Yes Plan: Counseled on smoking cessation. Nicotine patch. (6) Fatigue Qualifiers: Fatigue type: chronic, unspecified Qualified Code(s): R53.82 - Chronic fatigue, unspecified Is this a current diagnosis for this admission?: Yes Plan: Patient reports chronic fatigue. This may be due to his COPD. Patient B12, folate and T4 are within normal limits. Patient TSH is low however this may be affected by the use of the high-dose steroids. (7) Diastolic dysfunction Is this a current diagnosis for this admission?: Yes Plan: Has mild grade 1 diastolic dysfunction. Continue low-dose torsemide along with potassium supplement. (8) Constipation Is this a current diagnosis for this admission?: Yes Plan: Patient last bowel movement was 04/29. Will start patient on aggressive regimen. Patient feels that when his abodmen is distended or he is constipated , it affects his breathing.
[2017-05-01 05:37] LABS: ANION GAP 9 (5-19); BLOOD UREA NITROGEN 36 mg/dL (7-20); CALCIUM 9.4 mg/dL (8.4-10.2); CARBON DIOXIDE 39 mmol/L (22-30); CHLORIDE 91 mmol/L (98-107); CREATININE RESULT 0.83 mg/dL (0.52-1.25); GLUCOSE 201 mg/dL (75-110); MAGNESIUM 2.2 mg/dL (1.6-2.3); POTASSIUM 4.8 mmol/L (3.6-5.0); SODIUM 139.4 mmol/L (137-145)
[2017-05-01] MEDS: METHYLPREDNISOLONE INJ 40 MG/1 ML SDV IV SCH ×2 (06:13→14:40)
[2017-05-01] MEDS: GABAPENTIN 100 MG CAPSULE PO SCH ×3 (06:14→21:03)
[2017-05-01] MEDS: ACETYLCYSTEINE 20% SOLN 800 MG/4 ML VIAL.NEB NEB SCH ×2 (07:54→19:59)
[2017-05-01] MEDS: POTASSIUM CHLORIDE 10 MEQ TABLET.SA PO SCH (09:42)
[2017-05-01] MEDS: ENOXAPARIN SODIUM INJ 40 MG/0.4 ML DISP.SYRIN SUBCUT SCH (09:42)
[2017-05-01] MEDS: ASPIRIN 81 MG TABLET, ENT COATED PO SCH (09:43)
[2017-05-01] MEDS: MULTIVITAMIN TABLET PO SCH (09:43)
[2017-05-01] MEDS: DOCUSATE SODIUM 100 MG CAPSULE PO SCH (09:43)
[2017-05-01] MEDS: METOPROLOL SUCCINATE 25 MG TAB.SR.24H PO SCH (09:43)
[2017-05-01] MEDS: THIAMINE HCL 100 MG TABLET PO SCH (09:44)
[2017-05-01] MEDS: LEVOFLOXACIN 750 MG TABLET PO SCH (09:44)
[2017-05-01] MEDS: POLYETHYLENE GLYCOL 3350 POWDER 17 GM/1 PACKET PO SCH (09:45)
[2017-05-01] MEDS: FLUTICASONE NASAL SPRAY 50 MCG/SPRY 120 SPRAY/16 GM NASL SCH (09:46)
[2017-05-01] MEDS: ALBUTEROL SULFATE HFA (90 MCG/PUFF) 200 PUFF/8.5 GM MDI IH PRN ×2 (09:46→14:40)
[2017-05-01] MEDS: NICOTINE 21 MG/24 HR PATCH.TD24 TD SCH (09:47)
[2017-05-01] MEDS: TORSEMIDE 20 MG TABLET PO SCH (12:03)
[2017-05-01] MEDS: BUDESONIDE/FORMOTEROL 160-4.5 MCG 60 PUFF/6 GM MDI IH SCH ×2 (12:03→21:03)
--- NOTE | 2017-05-01 14:58 | PDOC PROGRESS REPORT ---
Subjective Progress Note for:: 05/01/17 Subjective:: Pt states that his breathing is close to his baseline. Pt states that he has been up ambulating around the floor. Nursing states that pt continues to decline using his CPAP. Reason For Visit: ACUTE COPD EXACERBATION Physical Exam Vital Signs: Temp Pulse Resp BP Pulse Ox 98.4 F 82 16 115/79 94 05/01/17 07:19 05/01/17 12:28 05/01/17 12:28 05/01/17 07:19 05/01/17 12:28 Intake & Output 04/30/17 05/01/17 05/02/17 06:59 06:59 06:59 Intake Total 1532 2020 Output Total 1625 600 Balance -93 1420 Weight 75 kg 75 kg General appearance: PRESENT: no acute distress, well-developed, well-nourished, other - sitting in a chair in his room. Head exam: PRESENT: atraumatic, normocephalic Eye exam: PRESENT: conjunctiva pink, EOMI. ABSENT: scleral icterus Ear exam: PRESENT: normal external ear exam Mouth exam: PRESENT: moist, tongue midline Neck exam: ABSENT: carotid bruit, JVD, lymphadenopathy, thyromegaly Respiratory exam: PRESENT: accessory muscle use, decreased breath sounds, prolonged expiratory phas, wheezes - scant wheezing, other - diminished in all lung garza. + prolonged expiratory phase. Cardiovascular exam: PRESENT: RRR. ABSENT: diastolic murmur, rubs, systolic murmur Pulses: PRESENT: normal dorsalis pedis pul Vascular exam: PRESENT: normal capillary refill GI/Abdominal exam: PRESENT: normal bowel sounds, soft. ABSENT: distended, guarding, mass, organolmegaly, rebound, tenderness Rectal exam: PRESENT: deferred Extremities exam: PRESENT: full ROM. ABSENT: calf tenderness, clubbing, pedal edema Neurological exam: PRESENT: alert, awake, oriented to person, oriented to place , oriented to time, oriented to situation, CN II-XII grossly intact. ABSENT: motor sensory deficit Psychiatric exam: PRESENT: appropriate affect, normal mood. ABSENT: homicidal ideation, suicidal ideation Skin exam: PRESENT: dry, intact, warm. ABSENT: cyanosis, rash Results Laboratory Results: 04/25/17 06:51 05/01/17 04:58 05/01/17 04:58 Sodium 139.4 Potassium 4.8 Chloride 91 L Carbon Dioxide 39 H Anion Gap 9 BUN 36 H Creatinine 0.83 Est GFR ( Amer) > 60 Est GFR (Non-Af Amer) > 60 Glucose 201 H Calcium 9.4 Magnesium 2.2 04/24/17 04/24/17 18:09 23:50 Troponin I < 0.012 < 0.012 Impressions: Chest CT 04/24/17 00:00 IMPRESSION: Chronic interstitial lung disease. No fibrosis. Chest X-Ray 04/24/17 11:26 IMPRESSION: Interstitial pulmonary edema superimposed on obstructive pulmonary disease. Assessment & Plan - Diagnosis (1) COPD exacerbation Is this a current diagnosis for this admission?: Yes Plan: Pt appear to be close to his baseline. Discontinue Solumedrol. Will place on prednisone. Will space Albuterol to Q6 hours. If pt continues to do well will discharge home in am (2) Acute and chronic respiratory failure with hypercapnia Is this a current diagnosis for this admission?: Yes Plan: Resolved. Pt refuses to use CPAP. (3) Alcohol abuse Is this a current diagnosis for this admission?: Yes Plan: Continue current treatment. (4) Diastolic dysfunction Is this a current diagnosis for this admission?: Yes Plan: Will discontinue torsemide. Pt CO2 increasing. (5) Tachycardia Plan: Will continue Metoprolol. (6) Tobacco dependence Is this a current diagnosis for this admission?: Yes Plan: nicotine patch. (7) DVT prophylaxis Is this a current diagnosis for this admission?: Yes Plan: Lovenox.
[2017-05-01] MEDS: MONTELUKAST SODIUM 10 MG TABLET PO SCH (18:01)
[2017-05-01] MEDS: BENZONATATE 100 MG CAPSULE PO PRN (19:39)
[2017-05-02] MEDS: LEVALBUTEROL HCL NEB 1.25 MG/3 ML AMPUL NEB SCH ×2 (02:17→08:09)
[2017-05-02] MEDS: GABAPENTIN 100 MG CAPSULE PO SCH (05:27)
[2017-05-02] MEDS: ACETYLCYSTEINE 20% SOLN 800 MG/4 ML VIAL.NEB NEB SCH (08:09)
[2017-05-02] MEDS: FLUTICASONE NASAL SPRAY 50 MCG/SPRY 120 SPRAY/16 GM NASL SCH (09:20)
[2017-05-02] MEDS: POLYETHYLENE GLYCOL 3350 POWDER 17 GM/1 PACKET PO SCH (09:20)
[2017-05-02] MEDS: BUDESONIDE/FORMOTEROL 160-4.5 MCG 60 PUFF/6 GM MDI IH SCH (09:21)
[2017-05-02] MEDS: DOCUSATE SODIUM 100 MG CAPSULE PO SCH (09:22)
[2017-05-02] MEDS: ALBUTEROL SULFATE HFA (90 MCG/PUFF) 200 PUFF/8.5 GM MDI IH PRN (09:22)
[2017-05-02] MEDS: MULTIVITAMIN TABLET PO SCH (09:23)
[2017-05-02] MEDS: METOPROLOL SUCCINATE 25 MG TAB.SR.24H PO SCH (09:23)
[2017-05-02] MEDS: THIAMINE HCL 100 MG TABLET PO SCH (09:23)
[2017-05-02] MEDS: ASPIRIN 81 MG TABLET, ENT COATED PO SCH (09:23)
[2017-05-02] MEDS: NICOTINE 21 MG/24 HR PATCH.TD24 TD SCH (09:24)
[2017-05-02] MEDS: ENOXAPARIN SODIUM INJ 40 MG/0.4 ML DISP.SYRIN SUBCUT SCH (09:24)
[2017-05-02] MEDS ORDERED: PREDNISONE 20 MG TABLET PO SCH (10:00)
--- NOTE | 2017-05-02 12:43 | PDOC DISCHARGE SUMMARY ---
General - Admit/Disc Date/PCP Admission Date/Primary Care Provider: 04/24/17 13:11 Discharge Date: 05/02/17 - Discharge Diagnosis (1) COPD exacerbation Is this a current diagnosis for this admission?: Yes Summary: Pt was admitted to the hospital for COPD exacerbation. Pt was placed on steroids, antibiotic, and breathing treatments. Pt respiratory function improved. Pt at time of discharge reported that breathing was back to baseline. (2) Acute and chronic respiratory failure with hypercapnia Is this a current diagnosis for this admission?: Yes Summary: POA. Pt was placed on Breathing treatments, steroids, and antibiotics. Pt completed antibiotic treatment here. (3) Alcohol abuse Is this a current diagnosis for this admission?: Yes Summary: Encourage pt to stop drinking. (4) Diastolic dysfunction Is this a current diagnosis for this admission?: Yes Summary: Acute on Chronic Mild Grade 1 Diastolic dysfunction. Pt euvolemic. (5) Tobacco dependence Is this a current diagnosis for this admission?: Yes (6) Chronic interstitial lung disease Is this a current diagnosis for this admission?: Yes Summary: Per CT of chest. Pt will need to follow up with pulmonary. - Additional Information Resuscitation Status: Full Code Discharge Diet: Cardiac Discharge Activity: Activity As Tolerated Prescriptions: Methylprednisolone [Medrol Dosepack (4 mg/Tab) 21 Tab/Dosepak] 4 mg PO ASDIR PRN #21 tab.ds.pk PRN Reason: Home Medications: Albuterol Sulfate [Proair HFA] 2 puff IH Q4HP PRN 10/06/16 Albuterol Sulfate [Ventolin 0.083% Neb 2.5 mg/3 mL Ampul] 3 ml NEB RTQ4HP PRN Aspirin [Adult Low Dose Aspirin EC] 81 mg PO DAILY 10/06/16 Budesonide/Formoterol Fumarate [Symbicort HFA 160-4.5 mcg Inhaler 6 gm] 2 puff IH BID 10/06/16 Dextroamphetamine/Amphetamine [Adderall 20 mg Tablet] 20 mg PO BID 10/06/16 Montelukast Sodium [Singulair 10 mg Tablet] 10 mg PO QPM 10/06/16 Fluticasone Propionate [Flonase Nasal Hitchcock 50 Mcg/Hitchcock 16 gm] 2 spray NASL DAILY spray.pump 01/20/17 Gabapentin 200 mg PO Q8 04/24/17 Prednisone [Deltasone 20 mg Tablet] 20 mg PO DAILY 04/24/17 Methylprednisolone [Medrol Dosepack (4 mg/Tab) 21 Tab/Dosepak] 4 mg PO ASDIR PRN #21 tab.ds.pk 05/02/17 History of Present Illness Patient complains of: Shortness of breath. History of Present Illness: MANI FLYNN is a 66 year old male admitted for shortness of breath and nonproductive cough for the past 2 days. Hospital Course Hospital Course: Pt is a 66 year old male who was admitted to the hospital for COPD exacerbation. Pt was placed on breathing treatments, steroids, and antibiotics. Pt did improve during stay. Levaquin was discontinued after pt completed 5 days of antibiotics. Pt was noted to have acute on chronic diastolic CHF which resolved with low dose torsemide. Pt was encouraged to stop smoking and drinking alcohol. Physical Exam Vital Signs: Temp Pulse Resp BP Pulse Ox 97.6 F 88 16 111/89 H 94 05/02/17 07:19 05/02/17 08:09 05/02/17 08:09 05/02/17 07:19 05/02/17 08:09 Intake & Output 05/01/17 05/02/17 05/03/17 06:59 06:59 06:59 Intake Total 2020 1320 Output Total 600 850 Balance 1420 470 Weight 75 kg 75 kg General appearance: PRESENT: no acute distress, well-developed, well-nourished Head exam: PRESENT: atraumatic, normocephalic Eye exam: PRESENT: conjunctiva pink, EOMI. ABSENT: scleral icterus Ear exam: PRESENT: normal external ear exam Mouth exam: PRESENT: moist, tongue midline Neck exam: ABSENT: carotid bruit, JVD, lymphadenopathy, thyromegaly Respiratory exam: PRESENT: other - slight prolonged exp phase, No wheezing, + accessory muscle use. Pulses: PRESENT: normal dorsalis pedis pul Vascular exam: PRESENT: normal capillary refill GI/Abdominal exam: PRESENT: normal bowel sounds, soft. ABSENT: distended, guarding, mass, organolmegaly, rebound, tenderness Rectal exam: PRESENT: deferred Extremities exam: PRESENT: full ROM. ABSENT: calf tenderness, clubbing, pedal edema Neurological exam: PRESENT: alert, awake, oriented to person, oriented to place , oriented to time, oriented to situation, CN II-XII grossly intact. ABSENT: motor sensory deficit Psychiatric exam: PRESENT: appropriate affect, normal mood. ABSENT: homicidal ideation, suicidal ideation Skin exam: PRESENT: dry, intact, warm. ABSENT: cyanosis, rash Results Laboratory Results: 04/25/17 06:51 05/01/17 04:58 04/24/17 04/24/17 18:09 23:50 Troponin I < 0.012 < 0.012 Impressions: Chest CT 04/24/17 00:00 IMPRESSION: Chronic interstitial lung disease. No fibrosis. Chest X-Ray 04/24/17 11:26 IMPRESSION: Interstitial pulmonary edema superimposed on obstructive pulmonary disease. Plan Time Spent: Greater than 30 Minutes - 32 mins.
[2017-05-02 12:50] VITALS: BP 128/65
== END 2017-05-02 13:25 | disposition home or self-care (01) | DRG 190 ==
LOC: ER 11:07 → EH 13:11 → 4N 17:59
PROVIDERS: ADMIT Family Medicine; ATTEND Family Medicine
DX: J44.1 Chronic obstructive pulmonary disease with (acute) exacerbation (principal); J96.22 Acute and chronic respiratory failure with hypercapnia; E78.5 Hyperlipidemia, unspecified; K21.9 Gastro-esophageal reflux disease without esophagitis; K44.9 Diaphragmatic hernia without obstruction or gangrene; R60.9 Edema, unspecified; R00.0 Tachycardia, unspecified; R53.82 Chronic fatigue, unspecified; F90.9 Attention-deficit hyperactivity disorder, unspecified type; F10.10 Alcohol abuse, uncomplicated; F17.210 Nicotine dependence, cigarettes, uncomplicated; K59.00 Constipation, unspecified; Y90.9 Presence of alcohol in blood, level not specified; Z79.82 Long term (current) use of aspirin; Z79.51 Long term (current) use of inhaled steroids; Z79.52 Long term (current) use of systemic steroids; Z79.899 Other long term (current) drug therapy
CPT/HCPCS: 36415; 36600; 71020; 71250; 80048; 82607; 82746; 82803; 83735; 83880; 84425; 84439; 84443; 84484; 85025; 87804; 93005; 93010; 93306; 94640; 94660; 94667; 94668; 96365; 96375; 99291; J1650; J1956; J2920; J2930; J3490; J7030; J7040; J7512; J7620

== ENCOUNTER 2017-09-06 19:23 | Emergency (ER) | payer MEDICARE ==
--- NOTE | 2017-09-06 20:05 | ER Document Report ---
ED General - General Chief Complaint: Tremor Stated Complaint: SHAKING Time Seen by Provider: 09/06/17 19:55 Notes: The patient is a 66-year-old male, past medical history bipolar, COPD, presents with 24 hours of generalized shaking and tremors. He has never had this before. Patient denies ever going through alcohol withdrawal before. He denies increased wheezing, new medications, fevers, history of thyroid disease, increased stressors, SI, HI, focal weakness, focal numbness or tingling. TRAVEL OUTSIDE OF THE [place] IN LAST 30 DAYS: No - Related Data Allergies/Adverse Reactions: No Known Allergies Allergy (Verified 04/24/17 11:07) Past Medical History - General Information source: Patient - Social History Smoking Status: Current Every Day Smoker Chew tobacco use (# tins/day): No Frequency of alcohol use: Social Drug Abuse: None Family History: COPD, Hypertension Patient has suicidal ideation: No Patient has homicidal ideation: No - Past Medical History Cardiac Medical History: Reports: Hx Hypercholesterolemia Pulmonary Medical History: Reports: Hx Asthma, Hx Bronchitis, Hx COPD, Hx Pneumonia, Hx Sleep Apnea Denies: Hx Tuberculosis Renal/ Medical History: Reports: Hx Kidney Stones. Denies: Hx Peritoneal Dialysis GI Medical History: Reports: Hx Gastroesophageal Reflux Disease, Hx Hiatal Hernia, Hx Ulcer Musculoskeltal Medical History: Reports Hx Arthritis Psychiatric Medical History: Reports: Hx Attention Deficit Hyperactivity Disorder, Hx Bipolar Disorder Denies: Hx Depression Past Surgical History: Reports: Hx Appendectomy, Hx Cholecystectomy, Hx Genitourinary Surgery - removal of bladder cancer x2. Denies: Hx Pacemaker - Immunizations Hx Diphtheria, Pertussis, Tetanus Vaccination: Yes Hx Pneumococcal Vaccination: 05/16/11 Review of Systems - Review of Systems Notes: REVIEW OF SYSTEMS: CONSTITUTIONAL: -fevers, -chills EENT: -eye pain, -difficulty swallowing, -nasal congestion CARDIOVASCULAR: -chest pain, -syncope. RESPIRATORY: -cough, -SOB GASTROINTESTINAL: -abdominal pain, -nausea, -vomiting, -diarrhea GENITOURINARY: -dysuria, -hematuria MUSCULOSKELETAL: -back pain, -neck pain SKIN: -rash or skin lesions. HEMATOLOGIC: -easy bruising or bleeding. LYMPHATIC: -swollen, enlarged glands. NEUROLOGICAL: +tremors, -altered mental status or loss of consciousness, - headache, -neurologic symptoms PSYCHIATRIC: -anxiety, -depression. ALL OTHER SYSTEMS REVIEWED AND NEGATIVE. Physical Exam - Vital signs Vitals: Temp Pulse Resp BP Pulse Ox 98.3 F 100 24 H 160/84 H 93 09/06/17 19:36 09/06/17 19:36 09/06/17 19:36 09/06/17 19:36 09/06/17 19:36 - Notes Notes: PHYSICAL EXAMINATION: GENERAL: Well-appearing, well-nourished and in no acute distress. HEAD: Atraumatic, normocephalic. EYES: Pupils equal round and reactive to light, extraocular movements intact, sclera anicteric, conjunctiva are normal. ENT: No tongue fasciculations, nares patent, oropharynx clear without exudates. Moist mucous membranes. NECK: Normal range of motion, supple without lymphadenopathy LUNGS: Breath sounds clear to auscultation bilaterally and equal. No wheezes rales or rhonchi. HEART: Regular rate and rhythm without murmurs ABDOMEN: Soft, nontender, normoactive bowel sounds. No guarding, no rebound. No masses appreciated. EXTREMITIES: Normal range of motion, no pitting or edema. No cyanosis. NEUROLOGICAL: No tremors seen when extending his hand or intentional pointing. Cranial nerves grossly intact. Normal speech, normal gait. Normal sensory and motor exams. PSYCH: Normal mood, normal affect. SKIN: Warm, Dry, normal turgor, no rashes or lesions noted. Course - Re-evaluation Re-evalutation: Patient appears well. He does not have a tremor on my evaluation. No tongue fasciculations and he has never had alcohol withdrawal. He does not appear clinically to be in alcohol withdrawal. Blood work is unremarkable and chest x- ray also does not show any evidence of pneumonia. Will provide outpatient referral to neurologist and see [facility] for further evaluation. - Vital Signs Vital signs: Temp Pulse Resp BP Pulse Ox 98.3 F 100 22 H 156/118 H 95 09/06/17 19:36 09/06/17 19:36 09/06/17 20:04 09/06/17 20:04 09/06/17 20:04 - Laboratory Result Diagrams: 09/06/17 20:20 09/06/17 20:20 Discharge - Discharge Clinical Impression: Tremor Condition: Stable Additional Instructions: For further evaluation of your tremor, follow-up with the neurologist or neuropsychologist. Forms: Elevated Blood Pressure Referrals: CAROL HANNON MD [NO LOCAL MD] - Follow up as needed [facility] [Provider Group] - Follow up as needed
[2017-09-06 20:33] LABS: ABSOLUTE EOSINOPHILS # (AUTO) 0.1 10^3/uL (0.0-0.6); ABSOLUTE LYMPHOCYTES (AUTO) 1.6 10^3/uL (0.5-4.7); ABSOLUTE MONOCYTES (AUTO) 0.7 10^3/uL (0.1-1.4); ABSOLUTE NEUT (AUTO) 6.2 10^3/uL (1.7-8.2); BASOPHILS % (AUTO) 0.6 % (0-2); EOSINOPHILS % (AUTO) 0.7 % (0-6); HEMATOCRIT 46.8 % (37.9-51.0); HEMOGLOBIN 15.5 g/dL (13.5-17.0); LYMPHOCYTES % (AUTO) 18.8 % (13-45); MEAN CORPUSCULAR HEMOGLOBIN 31.3 pg (27.0-33.4); MEAN CORPUSCULAR HGB CONC 33.2 g/dL (32.0-36.0); MEAN CORPUSCULAR VOLUME 94 fl (80-97); MONOCYTES % (AUTO) 8.2 % (3-13); PLATELET COUNT 221 10^3/uL (150-450); RED BLOOD COUNT 4.96 10^6/uL (4.35-5.55); RED CELL DISTRIBUTION WIDTH 12.7 % (11.5-14.0); SEGMENTED NEUTROPHILS % (AUTO) 71.7 % (42-78); TOTAL CELLS COUNTED % (AUTO) 100 %; WHITE BLOOD COUNT 8.7 10^3/uL (4.0-10.5)
[2017-09-06 20:55] LABS: ALANINE AMINOTRANSFERASE 30 U/L (21-72); ALBUMIN 3.8 g/dL (3.5-5.0); ALKALINE PHOSPHATASE 78 U/L (38-126); ASPARTATE AMINO TRANSFERASE 33 U/L (17-59); BILIRUBIN,DIRECT 0.3 mg/dL (0.0-0.4); BILIRUBIN,TOTAL 0.3 mg/dL (0.2-1.3); BLOOD UREA NITROGEN 14 mg/dL (7-20); CALCIUM 9.1 mg/dL (8.4-10.2); CHLORIDE 97 mmol/L (98-107); GLUCOSE 80 mg/dL (75-110); POTASSIUM 4.9 mmol/L (3.6-5.0); SODIUM 144.1 mmol/L (137-145)
[2017-09-06 21:01] LABS: ANION GAP 7 (5-19)
--- NOTE | 2017-09-06 21:06 | RADIOLOGY REPORT (SQ) ---
EXAM DESCRIPTION: CHEST SINGLE VIEW COMPLETED DATE/TIME: 09/06/2017 8:47 pm REASON FOR STUDY: cough COMPARISON: CT 04/25/2017 chest x-ray 04/24/2017 EXAM PARAMETERS: NUMBER OF VIEWS: One view. TECHNIQUE: Single frontal radiographic view of the chest acquired. RADIATION DOSE: NA LIMITATIONS: None. FINDINGS: LUNGS AND PLEURA: Chronic interstitial changes are suggested. No acute infiltrate or effu ignacio is present. No mass is seen. MEDIASTINUM AND HILAR STRUCTURES: No masses. Contour normal. HEART AND VASCULAR STRUCTURES: Heart normal in size. Normal vasculature. BONES: No acute findings. HARDWARE: None in the chest. OTHER: No other significant finding. IMPRESSION: Chronic lung changes with no acute cardiopulmonary disease. TECHNICAL DOCUMENTATION: JOB ID: [id number] [employer]- All Rights Reserved Reading location - IP/workstation name: [email or web address]
[2017-09-06 21:07] LABS: CARBON DIOXIDE 40 mmol/L (22-30)
[2017-09-06] MEDS ORDERED: ALBUTEROL SULFATE HFA (90 MCG/PUFF) 8 GM MDI (1 MDI/ER DISP) IH ONE (21:48)
[2017-09-06 22:16] VITALS: BP 125/84
[2017-09-06] MEDS ORDERED: ACETAMINOPHEN 325 MG TABLET PO ONE (22:21)
== END 2017-09-06 22:32 | disposition home or self-care (01) ==
LOC: ER 19:23
DX: R25.1 Tremor, unspecified (principal); K21.9 Gastro-esophageal reflux disease without esophagitis; F17.200 Nicotine dependence, unspecified, uncomplicated; E78.00 Pure hypercholesterolemia, unspecified; J44.9 Chronic obstructive pulmonary disease, unspecified; Z87.442 Personal history of urinary calculi; Z90.49 Acquired absence of other specified parts of digestive tract
CPT/HCPCS: 99284; 36415; 84443; 85025; 80053; 71045; A9270; J3490

== ENCOUNTER 2017-10-16 09:30 | Inpatient (IN) | payer MEDICARE ==
[2017-10-16] MEDS ORDERED: IPRATROPIUM/ALBUTEROL 0.5-2.5 MG/3 ML AMPUL NEB ONE (09:49)
[2017-10-16] MEDS ORDERED: METHYLPREDNISOLONE INJ 125 MG/2 ML SDV IV ONE (09:49)
[2017-10-16] MEDS ORDERED: MAGNESIUM SULFATE/D5W 1 GM/100 ML RTUPB IV ONE (09:49)
[2017-10-16] MEDS ORDERED: NORMAL SALINE 1000 ML 1,000 ML IV ONE (09:49)
[2017-10-16 10:12] LABS: VENOUS BLOOD BASE EXCESS 4.5 mmol/L; VENOUS BLOOD HCO3 32.3 mmol/L (20-32); VENOUS BLOOD PCO2 59.9 mmHg (35-63); VENOUS BLOOD PH 7.35 (7.30-7.42)
[2017-10-16 10:15] LABS: HEMATOCRIT 47.7 % (37.9-51.0); HEMOGLOBIN 15.9 g/dL (13.5-17.0); MEAN CORPUSCULAR HGB CONC 33.3 g/dL (32.0-36.0); MEAN CORPUSCULAR VOLUME 90 fl (80-97); PLATELET COUNT 208 10^3/uL (150-450); RED BLOOD COUNT 5.29 10^6/uL (4.35-5.55); WHITE BLOOD COUNT 20.4 10^3/uL (4.0-10.5)
[2017-10-16 10:22] LABS: INTERNATIONAL RATION (INR) 0.94
--- NOTE | 2017-10-16 10:29 | RADIOLOGY REPORT (SQ) ---
EXAM DESCRIPTION: CHEST SINGLE VIEW COMPLETED DATE/TIME: 10/16/2017 10:18 am REASON FOR STUDY: sob COMPARISON: 09/06/2017 EXAM PARAMETERS: NUMBER OF VIEWS: One view. TECHNIQUE: Single frontal radiographic view of the chest acquired. RADIATION DOSE: NA LIMITATIONS: None. FINDINGS: LUNGS AND PLEURA: Stable chronic lung change without new opacities, masses or pneumothorax . No pleural effusion. MEDIASTINUM AND HILAR STRUCTURES: No masses. Contour normal. HEART AND VASCULAR STRUCTURES: Heart normal in size. Normal vasculature. BONES: No acute findings. HARDWARE: None in the chest. OTHER: No other significant finding. IMPRESSION: NO ACUTE RADIOGRAPHIC FINDING IN THE CHEST. NO SIGNIFICANT CHANGE FROM PRIOR STUDY. TECHNICAL DOCUMENTATION: JOB ID: [id number] [employer]- All Rights Reserved Reading location - IP/workstation name: [email or web address]
[2017-10-16 10:31] LABS: ALANINE AMINOTRANSFERASE 33 U/L (21-72); ALBUMIN 4.4 g/dL (3.5-5.0); ALKALINE PHOSPHATASE 86 U/L (38-126); ANION GAP 12 (5-19); ASPARTATE AMINO TRANSFERASE 34 U/L (17-59); BILIRUBIN,DIRECT 0.4 mg/dL (0.0-0.4); BILIRUBIN,TOTAL 0.9 mg/dL (0.2-1.3); BLOOD UREA NITROGEN 19 mg/dL (7-20); CALCIUM 9.8 mg/dL (8.4-10.2); CARBON DIOXIDE 32 mmol/L (22-30); CHLORIDE 98 mmol/L (98-107); CREATINE KINASE 276 U/L (55-170); GLUCOSE 106 mg/dL (75-110); POTASSIUM 5.2 mmol/L (3.6-5.0); SODIUM 141.5 mmol/L (137-145); TOTAL PROTEIN 7.6 g/dL (6.3-8.2)
[2017-10-16 10:35] LABS: ABSOLUTE LYMPHOCYTES# (MANUAL) 3.3 10^3/uL (0.5-4.7); ABSOLUTE NEUTROPHILS# (MANUAL) 15.1 10^3/uL (1.7-8.2); BASOPHILS % (MANUAL) 0 % (0-2); EOSINOPHILS % (MANUAL) 0 % (0-6); LYMPHOCYTES % (MANUAL) 16 % (13-45); MONOCYTES % (MANUAL) 10 % (3-13); SEGMENTED NEUTROPHILS % (MAN) 74 % (42-78); TOTAL CELLS COUNTED 100
[2017-10-16 10:36] LABS: PLATELET COMMENT ADEQUATE; RBC MORPHOLOGY COMMENT NORMO-CYTIC/CHROMIC; TOXIC GRANULATION 1+; TOXIC VACUOLATION PRESENT
[2017-10-16 10:54] LABS: NT PRO BNP 93 pg/mL (5-900)
[2017-10-16 10:55] LABS: TROPONIN I < 0.012 ng/mL
[2017-10-16] MEDS ORDERED: ALBUTEROL SULFATE 0.083% NEB 2.5 MG/3 ML AMPUL NEB ONE (11:16)
[2017-10-16] MEDS ORDERED: ONDANSETRON HCL INJ/PF 4 MG/2 ML SDV IV PRN (11:35)
[2017-10-16] MEDS ORDERED: ONDANSETRON 4 MG TAB.RAPDIS PO PRN (11:35)
[2017-10-16] MEDS ORDERED: LEVALBUTEROL HCL NEB 0.63 MG/3 ML AMPUL NEB PRN (11:35)
[2017-10-16] MEDS ORDERED: ACETAMINOPHEN 325 MG TABLET PO PRN (11:35)
[2017-10-16] MEDS ORDERED: MAGNESIUM HYDROXIDE SUSP 30 ML UDCUP PO PRN (11:35)
[2017-10-16] MEDS ORDERED: LEVALBUTEROL HCL NEB 1.25 MG/3 ML AMPUL NEB SCH (12:00)
[2017-10-16] MEDS ORDERED: LANSOPRAZOLE 30 MG TAB.RAP.DR PO ONE (13:00)
--- NOTE | 2017-10-16 13:36 | ER Document Report ---
ED General - General Chief Complaint: Shortness Of Breath Stated Complaint: DIFFICULTY BREATHING Time Seen by Provider: 10/16/17 09:48 TRAVEL OUTSIDE OF THE [place] IN LAST 30 DAYS: No - HPI Patient complains to provider of: Difficulty breathing Notes: Patient coming in with a history of COPD states worsening shortness of breath ongoing for the last 2 3 days. Worse today. Patient is on home oxygen is having to increase his oxygen use at home. Patient denies any recent travel denies any recent antibiotics. Patient with increased work of breathing tachypneic upon my evaluation otherwise is resting comfortably states change in sputum now yellow no fevers no chills no chest pain no abdominal pain - Related Data Allergies/Adverse Reactions: No Known Allergies Allergy (Verified 04/24/17 11:07) Past Medical History - Social History Smoking Status: Former Smoker Chew tobacco use (# tins/day): No Frequency of alcohol use: Social Drug Abuse: None Family History: COPD, Hypertension Patient has suicidal ideation: No Patient has homicidal ideation: No - Past Medical History Cardiac Medical History: Reports: Hx Hypercholesterolemia Pulmonary Medical History: Reports: Hx Asthma, Hx Bronchitis, Hx COPD, Hx Pneumonia, Hx Sleep Apnea Denies: Hx Tuberculosis Renal/ Medical History: Reports: Hx Kidney Stones. Denies: Hx Peritoneal Dialysis GI Medical History: Reports: Hx Gastroesophageal Reflux Disease, Hx Hiatal Hernia, Hx Ulcer Musculoskeltal Medical History: Reports Hx Arthritis Psychiatric Medical History: Reports: Hx Attention Deficit Hyperactivity Disorder, Hx Bipolar Disorder Denies: Hx Depression Past Surgical History: Reports: Hx Appendectomy, Hx Cholecystectomy, Hx Genitourinary Surgery - removal of bladder cancer x2. Denies: Hx Pacemaker - Immunizations Hx Diphtheria, Pertussis, Tetanus Vaccination: Yes Hx Pneumococcal Vaccination: 05/16/11 Review of Systems - Review of Systems Constitutional: No symptoms reported EENT: No symptoms reported Cardiovascular: No symptoms reported Respiratory: Cough, Short of breath, Wheezing Gastrointestinal: No symptoms reported Genitourinary: No symptoms reported Male Genitourinary: No symptoms reported Musculoskeletal: No symptoms reported Skin: No symptoms reported Hematologic/Lymphatic: No symptoms reported Neurological/Psychological: No symptoms reported -: Yes All other systems reviewed and negative Physical Exam - Vital signs Vitals: Temp Pulse Resp BP Pulse Ox 99.3 F 125 H 36 H 151/85 H 82 L 10/16/17 09:35 10/16/17 09:35 10/16/17 09:35 10/16/17 09:35 10/16/17 09:35 Interpretation: Hypoxic - Without home O2, Tachypneic - General General appearance: Appears well, Alert - HEENT Head: Normocephalic, Atraumatic Eyes: Normal Pupils: PERRL - Respiratory Respiratory status: Respiratory distress - Mild, Tachypnea Chest status: Nontender Breath sounds: Rhonchi, Wheezing Chest palpation: Normal - Cardiovascular Rhythm: Regular Heart sounds: Normal auscultation Murmur: No - Abdominal Inspection: Normal Distension: No distension Bowel sounds: Normal Tenderness: Nontender Organomegaly: No organomegaly - Back Back: Normal, Nontender - Extremities General upper extremity: Normal inspection, Nontender, Normal color, Normal ROM , Normal temperature General lower extremity: Normal inspection, Nontender, Normal color, Normal ROM , Normal temperature, Normal weight bearing. No: Abril's sign - Neurological Neuro grossly intact: Yes Cognition: Normal Orientation: AAOx4 Demetri Coma Scale Eye Opening: Spontaneous Demetri Coma Scale Verbal: Oriented Demetri Coma Scale Motor: Obeys Commands Demetri Coma Scale Total: 15 Speech: Normal Motor strength normal: LUE, RUE, LLE, RLE Sensory: Normal - Psychological Associated symptoms: Normal affect, Normal mood - Skin Skin Temperature: Warm Skin Moisture: Dry Skin Color: Normal Course - Re-evaluation Re-evalutation: 10/16/17 14:44 Patient coming in for evaluation shortness of breath leukocytosis with sputum change however no pulmonic infiltrates on x-ray. Patient with minimal improvement after breathing treatments continue to have tachypnea and therefore did work of breathing patient was placed on BiPAP. Patient PCP is Dr. Genevieve Mccormick. Patient was discussed with the hospital service will be admitted for further evaluation - Vital Signs Vital signs: Temp Pulse Resp BP Pulse Ox 99.3 F 120 H 21 H 121/82 96 10/16/17 09:35 10/16/17 09:40 10/16/17 14:01 10/16/17 14:01 10/16/17 14:01 - Laboratory Result Diagrams: 10/16/17 09:55 10/16/17 09:55 Laboratory results interpreted by me: 10/16/17 10/16/17 10/16/17 09:55 09:55 09:55 WBC 20.4 H Abs Neuts (Manual) 15.1 H Abs Monocytes (Manual) 2.0 H VBG HCO3 Potassium 5.2 H Carbon Dioxide 32 H Creatine Kinase 276 H CK-MB (CK-2) 8.40 H 10/16/17 09:55 WBC Abs Neuts (Manual) Abs Monocytes (Manual) VBG HCO3 32.3 H Potassium Carbon Dioxide Creatine Kinase CK-MB (CK-2) Critical Care Note - Critical Care Note Total time excluding time spent on procedures (mins): 35 Comments: Multiple evaluations for patient with some mild respiratory distress coming in for respiratory distress managing BiPAP Discharge - Discharge Clinical Impression: COPD exacerbation, Acute and chronic respiratory failure with hypercapnia Condition: Good Disposition: ADMITTED INPATIENT Admitting Provider: Hospitalist - may Unit Admitted: ASHLYN
--- NOTE | 2017-10-16 15:31 | PDOC H&P ---
History of Present Illness Admission Date/PCP: 10/16/17 14:10 Patient complains of: Cough and dyspnea History of Present Illness: MANI FLYNN is a 67 year old male with a past medical history of Bladder canncer- Dr. Funes is his urologist COPD- on 3.5 L NC at home Home meds Buspar tid (dose unknown) Spiriva daily Symbicort bid ASA 81 mg daily Flonase Proair Albuetrol nebs He presented to the hospital with a 2 day history of progressively worsening dyspnea and cough with greenish yellow expectoration. No fever/ rhinorrhea/ sore throat/chest pain. Reports severe constipation. He was treated with steroids, nebs, magnesium and referred for admission. he is currently requiring 5L O2 by nasal cannula Past Medical History Cardiac Medical History: Reports: Hyperlipidema Pulmonary Medical History: Reports: Asthma, Chronic Obstructive Pulmonary Disease (COPD), Sleep Apnea Denies: Tuberculosis Malignancy Medical History: Reports: Other - Bladder cancer GI Medical History: Reports: Gastroesophageal Reflux Disease, Hiatal Hernia Musculoskeltal Medical History: Reports: Arthritis Psychiatric Medical History: Reports: Attention Deficit Hyperactivity Disorder, Bipolar Disorder Past Surgical History Past Surgical History: Reports: Appendectomy, Cholecystectomy, Other - Surgery for bladder cancer Social History Smoking Status: Former Smoker Frequency of Alcohol Use: Heavy Hx Recreational Drug Use: No Drugs: None Hx Prescription Drug Abuse: No Family History Family History: CAD, DM, Hypertension Parental Family History Reviewed: Yes Children Family History Reviewed: Yes Sibling(s) Family History Reviewed.: Yes Medication/Allergy Home Medications: Albuterol Sulfate [Proair HFA] 2 puff IH Q4HP PRN 10/06/16 Albuterol Sulfate [Ventolin 0.083% Neb 2.5 mg/3 mL Ampul] 3 ml NEB RTQ4HP PRN Aspirin [Adult Low Dose Aspirin EC] 81 mg PO DAILY 10/06/16 Budesonide/Formoterol Fumarate [Symbicort HFA 160-4.5 mcg Inhaler 6 gm] 2 puff IH BID 10/06/16 Dextroamphetamine/Amphetamine [Adderall 20 mg Tablet] 20 mg PO BID 10/06/16 Montelukast Sodium [Singulair 10 mg Tablet] 10 mg PO QPM 10/06/16 Fluticasone Propionate [Flonase Nasal Given 50 Mcg/Given 16 gm] 2 spray NASL DAILY spray.pump 01/20/17 Gabapentin 200 mg PO Q8 04/24/17 Prednisone [Deltasone 20 mg Tablet] 20 mg PO DAILY 04/24/17 Methylprednisolone [Medrol Dosepack (4 mg/Tab) 21 Tab/Dosepak] 4 mg PO ASDIR PRN #21 tab.ds.pk 05/02/17 Allergies/Adverse Reactions: No Known Allergies Allergy (Verified 04/24/17 11:07) Review of Systems Constitutional: ABSENT: fever(s) Eyes: ABSENT: visual disturbances Ears: ABSENT: hearing changes Nose, Mouth, and Throat: ABSENT: sore throat Cardiovascular: ABSENT: chest pain, palpitations Respiratory: PRESENT: cough, dyspnea, sputum Gastrointestinal: PRESENT: constipation - [id number], heartburn. ABSENT: abdominal pain Genitourinary: ABSENT: dysuria, hematuria Musculoskeletal: ABSENT: joint swelling Integumentary: ABSENT: rash Neurological: ABSENT: focal weakness Psychiatric: ABSENT: hallucinations Endocrine: ABSENT: heat intolerance Hematologic/Lymphatic: ABSENT: easy bleeding Physical Exam Vital Signs: Temp Pulse Resp BP Pulse Ox 99.3 F 120 H 21 H 121/82 96 10/16/17 09:35 10/16/17 09:40 10/16/17 14:01 10/16/17 14:01 10/16/17 14:01 General appearance: PRESENT: no acute distress Head exam: PRESENT: normocephalic Eye exam: PRESENT: PERRLA. ABSENT: scleral icterus Ear exam: PRESENT: normal external ear exam Mouth exam: PRESENT: moist Neck exam: ABSENT: tracheal deviation Respiratory exam: PRESENT: accessory muscle use, crackles, rhonchi, symmetrical , wheezes Cardiovascular exam: PRESENT: RRR, tachycardia GI/Abdominal exam: PRESENT: normal bowel sounds, soft. ABSENT: tenderness Rectal exam: PRESENT: deferred Gentrourinary exam: ABSENT: indwelling catheter Extremities exam: ABSENT: calf tenderness, pedal edema Musculoskeletal exam: PRESENT: normal inspection Neurological exam: PRESENT: alert, awake, oriented to person, oriented to place , oriented to time, oriented to situation Psychiatric exam: PRESENT: appropriate affect Skin exam: ABSENT: rash Results Impressions: Chest X-Ray 10/16/17 09:49 IMPRESSION: NO ACUTE RADIOGRAPHIC FINDING IN THE CHEST. NO SIGNIFICANT CHANGE FROM PRIOR STUDY. Assessment & Plan - Diagnosis (1) COPD exacerbation Is this a current diagnosis for this admission?: Yes Plan: Nebs, steroids, inhalers, O2, mucolytics and start Doxycycline (2) Constipation Is this a current diagnosis for this admission?: Yes Plan: Laxatives (3) DVT prophylaxis Is this a current diagnosis for this admission?: Yes Plan: S/C Lovenox (4) History of bladder cancer Is this a current diagnosis for this admission?: Yes Plan: Outpatient follow up (5) Depression Is this a current diagnosis for this admission?: Yes Plan: Resume outpatient meds (6) Alcohol dependence Is this a current diagnosis for this admission?: Yes Plan: Thiamine, Folic acid, Lorazepam prn - Time Time Spent: Greater than 70 Minutes
[2017-10-16] MEDS: LEVALBUTEROL HCL NEB 1.25 MG/3 ML AMPUL NEB SCH ×2 (15:55→19:47)
[2017-10-16] MEDS ORDERED: DOXYCYCLINE HYCLATE 100 MG TABLET PO ONE (16:00)
[2017-10-16] MEDS ORDERED: BISACODYL 5 MG TABEC PO ONE (16:30)
[2017-10-16] MEDS: LACTOBACILLUS ACIDOPHILUS 250 MG TAB PO SCH (17:08)
[2017-10-16] MEDS: MONTELUKAST SODIUM 10 MG TABLET PO SCH (17:08)
[2017-10-16] MEDS: LACTULOSE SYRUP 20 GM/30 ML UDCUP PO SCH (17:09)
[2017-10-16] MEDS: BUDESONIDE/FORMOTEROL 160-4.5 MCG 60 PUFF/6 GM MDI IH SCH (17:09)
[2017-10-16] MEDS ORDERED: THIAMINE HCL 100 MG TABLET PO ONE (18:00)
[2017-10-16] MEDS: GABAPENTIN 100 MG CAPSULE PO SCH (21:10)
[2017-10-16] MEDS: METHYLPREDNISOLONE INJ 40 MG/1 ML SDV IV SCH (21:11)
[2017-10-16] MEDS: LORAZEPAM 1 MG TABLET PO PRN (21:14)
--- NOTE | 2017-10-16 23:18 | EKG REPORT ---
SEVERITY:- BORDERLINE ECG - SINUS TACHYCARDIA BORDERLINE RIGHT AXIS DEVIATION BORDERLINE ST ELEVATION, INFERIOR LEADS : Confirmed by: Giselle Martinez 16-Oct-2017 23:17:02
[2017-10-17] MEDS: LEVALBUTEROL HCL NEB 1.25 MG/3 ML AMPUL NEB SCH ×6 (00:12→19:58)
[2017-10-17 05:26] LABS: HEMATOCRIT 42.3 % (37.9-51.0); HEMOGLOBIN 13.9 g/dL (13.5-17.0); MEAN CORPUSCULAR HEMOGLOBIN 30.4 pg (27.0-33.4); MEAN CORPUSCULAR VOLUME 92 fl (80-97); PLATELET COUNT 169 10^3/uL (150-450); RED BLOOD COUNT 4.59 10^6/uL (4.35-5.55); RED CELL DISTRIBUTION WIDTH 12.9 % (11.5-14.0); WHITE BLOOD COUNT 11.6 10^3/uL (4.0-10.5)
[2017-10-17 05:52] LABS: ANION GAP 6 (5-19); BLOOD UREA NITROGEN 18 mg/dL (7-20); CALCIUM 9.5 mg/dL (8.4-10.2); CARBON DIOXIDE 34 mmol/L (22-30); CHLORIDE 99 mmol/L (98-107); GLUCOSE 150 mg/dL (75-110); PHOSPHORUS 3.4 mg/dL (2.5-4.5); POTASSIUM 5.2 mmol/L (3.6-5.0); SODIUM 139.4 mmol/L (137-145); TRIGLYCERIDES 50 mg/dL (<150)
[2017-10-17] MEDS ORDERED: LANSOPRAZOLE 30 MG TAB.RAP.DR PO SCH (06:00)
[2017-10-17] MEDS: METHYLPREDNISOLONE INJ 40 MG/1 ML SDV IV SCH ×3 (06:02→21:42)
[2017-10-17 06:03] LABS: DIRECT LDL 77 mg/dL (<100)
[2017-10-17] MEDS: GABAPENTIN 100 MG CAPSULE PO SCH (06:03)
[2017-10-17] MEDS: DOXYCYCLINE HYCLATE 100 MG TABLET PO SCH ×2 (06:03→18:54)
[2017-10-17] MEDS ORDERED: DOCUSATE SODIUM 100 MG CAPSULE PO SCH (10:00)
[2017-10-17] MEDS ORDERED: ASPIRIN 81 MG TABLET, ENT COATED PO SCH (10:00)
[2017-10-17] MEDS ORDERED: BUDESONIDE/FORMOTEROL 160-4.5 MCG 60 PUFF/6 GM MDI IH SCH (10:30)
[2017-10-17] MEDS: FLUTICASONE NASAL SPRAY 50 MCG/SPRY 120 SPRAY/16 GM NASL SCH (10:45)
[2017-10-17] MEDS: LACTULOSE SYRUP 20 GM/30 ML UDCUP PO SCH ×2 (10:45→18:55)
[2017-10-17] MEDS: BUDESONIDE/FORMOTEROL 160-4.5 MCG 60 PUFF/6 GM MDI IH SCH ×2 (10:47→21:43)
[2017-10-17] MEDS: FOLIC ACID 1 MG TABLET PO SCH (10:47)
[2017-10-17] MEDS: THIAMINE HCL 100 MG TABLET PO SCH (10:47)
[2017-10-17] MEDS: ENOXAPARIN SODIUM INJ 40 MG/0.4 ML DISP.SYRIN SUBCUT SCH (10:48)
[2017-10-17] MEDS: LACTOBACILLUS ACIDOPHILUS 250 MG TAB PO SCH ×2 (10:48→18:55)
[2017-10-17] MEDS ORDERED: MAGNESIUM CITRATE 296 ML BOTTLE PO ONE (11:30)
[2017-10-17] MEDS ORDERED: ASPIRIN 81 MG TABLET, CHEWABLE PO SCH (12:00)
--- NOTE | 2017-10-17 12:34 | PDOC PROGRESS REPORT ---
Subjective Progress Note for:: 10/17/17 Subjective:: 67 yr old male with COPD on home O2 presented with dyspnea and hypoxia and was diagnosed with acute bronchitis and COPD exacerbation. Feels better this morning. Is still constipated. No other complaints Reason For Visit: COPD EXACERBATION Physical Exam Vital Signs: Temp Pulse Resp BP Pulse Ox 97.7 F 83 17 94/74 L 95 10/17/17 04:00 10/17/17 08:01 10/17/17 08:01 10/17/17 04:00 10/17/17 04:00 Intake & Output 10/16/17 10/17/17 10/18/17 06:59 06:59 06:59 Intake Total 882 Output Total 475 Balance 407 Weight 85.9 kg General appearance: PRESENT: no acute distress Head exam: PRESENT: normocephalic Eye exam: ABSENT: scleral icterus Ear exam: PRESENT: normal external ear exam Mouth exam: PRESENT: moist Respiratory exam: PRESENT: symmetrical, unlabored, wheezes. ABSENT: crackles Cardiovascular exam: PRESENT: RRR GI/Abdominal exam: PRESENT: distended, normal bowel sounds, soft. ABSENT: tenderness Rectal exam: PRESENT: deferred Gentrourinary exam: ABSENT: indwelling catheter Extremities exam: ABSENT: pedal edema Neurological exam: PRESENT: alert, awake, oriented to person, oriented to place , oriented to time, oriented to situation Psychiatric exam: PRESENT: appropriate affect Skin exam: ABSENT: jaundice Results Laboratory Results: 10/17/17 04:46 10/17/17 04:46 10/17/17 10/17/17 10/17/17 04:46 04:46 04:46 WBC 11.6 H RBC 4.59 Hgb 13.9 Hct 42.3 MCV 92 MCH 30.4 MCHC 33.0 RDW 12.9 Plt Count 169 Sodium 139.4 Potassium 5.2 H Chloride 99 Carbon Dioxide 34 H Anion Gap 6 BUN 18 Creatinine 0.79 Est GFR ( Amer) > 60 Est GFR (Non-Af Amer) > 60 Glucose 150 H Calcium 9.5 Phosphorus 3.4 Magnesium 2.3 Triglycerides 50 Cholesterol 143.70 LDL Cholesterol Direct 77 VLDL Cholesterol 10.0 HDL Cholesterol 52 TSH 0.37 L 10/16/17 16:00 Troponin I < 0.012 Impressions: Chest X-Ray 10/16/17 09:49 IMPRESSION: NO ACUTE RADIOGRAPHIC FINDING IN THE CHEST. NO SIGNIFICANT CHANGE FROM PRIOR STUDY. Assessment & Plan - Diagnosis (1) COPD exacerbation Is this a current diagnosis for this admission?: Yes Plan: Nebs, steroids, inhalers, O2, mucolytics, Day 2 of Doxycycline (2) Constipation Is this a current diagnosis for this admission?: Yes Plan: Laxatives- try mag citrate today (3) DVT prophylaxis Is this a current diagnosis for this admission?: Yes Plan: S/C Lovenox (4) History of bladder cancer Is this a current diagnosis for this admission?: Yes Plan: Outpatient follow up (5) Depression Is this a current diagnosis for this admission?: Yes Plan: Resume outpatient meds (6) Alcohol dependence Is this a current diagnosis for this admission?: Yes Plan: Thiamine, Folic acid, Lorazepam prn (7) Acute bronchitis Is this a current diagnosis for this admission?: Yes Plan: above. Check sputum cultures (8) Acute respiratory failure with hypoxia Is this a current diagnosis for this admission?: Yes Plan: As above - Time Time Spent with patient: 25-34 minutes
[2017-10-17] MEDS: GABAPENTIN 300 MG CAPSULE PO SCH ×2 (14:16→21:43)
[2017-10-17] MEDS ORDERED: ONDANSETRON HCL INJ/PF 4 MG/2 ML SDV IV PRN (15:30)
[2017-10-17] MEDS ORDERED: ONDANSETRON 4 MG TAB.RAPDIS PO PRN (16:00)
[2017-10-17] MEDS: MONTELUKAST SODIUM 10 MG TABLET PO SCH (18:54)
[2017-10-17] MEDS: BUSPIRONE HCL 10 MG TABLET PO SCH (21:42)
[2017-10-18 05:02] LABS: HEMATOCRIT 41.6 % (37.9-51.0); HEMOGLOBIN 13.9 g/dL (13.5-17.0); MEAN CORPUSCULAR HEMOGLOBIN 30.6 pg (27.0-33.4); MEAN CORPUSCULAR HGB CONC 33.4 g/dL (32.0-36.0); MEAN CORPUSCULAR VOLUME 92 fl (80-97); PLATELET COUNT 179 10^3/uL (150-450); RED BLOOD COUNT 4.54 10^6/uL (4.35-5.55); RED CELL DISTRIBUTION WIDTH 12.5 % (11.5-14.0); WHITE BLOOD COUNT 11.7 10^3/uL (4.0-10.5)
[2017-10-18 05:22] LABS: ANION GAP 9 (5-19); BLOOD UREA NITROGEN 21 mg/dL (7-20); CALCIUM 9.3 mg/dL (8.4-10.2); CARBON DIOXIDE 34 mmol/L (22-30); CHLORIDE 99 mmol/L (98-107); GLUCOSE 190 mg/dL (75-110); POTASSIUM 4.8 mmol/L (3.6-5.0); SODIUM 141.6 mmol/L (137-145)
[2017-10-18] MEDS: LANSOPRAZOLE 30 MG TAB.RAP.DR PO SCH (05:44)
[2017-10-18] MEDS: METHYLPREDNISOLONE INJ 40 MG/1 ML SDV IV SCH ×3 (05:44→18:54)
[2017-10-18] MEDS: GABAPENTIN 300 MG CAPSULE PO SCH ×3 (05:44→22:19)
[2017-10-18] MEDS: DOXYCYCLINE HYCLATE 100 MG TABLET PO SCH ×2 (05:44→18:52)
[2017-10-18] MEDS: LEVALBUTEROL HCL NEB 1.25 MG/3 ML AMPUL NEB SCH ×4 (08:44→20:00)
[2017-10-18] MEDS: LACTOBACILLUS ACIDOPHILUS 250 MG TAB PO SCH ×2 (11:18→18:53)
[2017-10-18] MEDS: FOLIC ACID 1 MG TABLET PO SCH (11:18)
[2017-10-18] MEDS: ASPIRIN 81 MG TABLET, ENT COATED PO SCH (11:18)
[2017-10-18] MEDS: THIAMINE HCL 100 MG TABLET PO SCH (11:18)
[2017-10-18] MEDS: BUSPIRONE HCL 10 MG TABLET PO SCH ×2 (11:19→22:19)
[2017-10-18] MEDS: ENOXAPARIN SODIUM INJ 40 MG/0.4 ML DISP.SYRIN SUBCUT SCH (11:20)
[2017-10-18] MEDS: FLUTICASONE NASAL SPRAY 50 MCG/SPRY 120 SPRAY/16 GM NASL SCH (11:26)
[2017-10-18] MEDS: BUDESONIDE/FORMOTEROL 160-4.5 MCG 60 PUFF/6 GM MDI IH SCH ×2 (11:26→22:18)
[2017-10-18] MEDS: ASPIRIN 81 MG TABLET, CHEWABLE PO SCH (11:27)
[2017-10-18] MEDS: LACTULOSE SYRUP 20 GM/30 ML UDCUP PO SCH ×2 (11:27→18:54)
[2017-10-18] MEDS ORDERED: BENZOCAINE/MENTHOL SORE THROAT LOZENGE BUCCAL PRN (12:36)
[2017-10-18] MEDS ORDERED: GUAIFENESIN 600 MG TABLET.SA PO ONE (13:30)
--- NOTE | 2017-10-18 13:53 | PDOC PROGRESS REPORT ---
Subjective Progress Note for:: 10/18/17 Subjective:: 67 yr old male with COPD on home O2 presented with dyspnea and hypoxia and was diagnosed with acute bronchitis and COPD exacerbation. Feels better this morning. Constipation resolved. Reports a lot of mucus and requesting something to help him cough it up. Reason For Visit: COPD EXACERBATION Physical Exam Vital Signs: Temp Pulse Resp BP Pulse Ox 98.3 F 84 18 135/85 H 94 10/18/17 12:00 10/18/17 12:48 10/18/17 12:48 10/18/17 12:00 10/18/17 12:48 Intake & Output 10/17/17 10/18/17 10/19/17 06:59 06:59 06:59 Intake Total 882 2177 Output Total 475 Balance 407 2177 Weight 85.9 kg 85.4 kg General appearance: PRESENT: no acute distress Head exam: PRESENT: normocephalic Ear exam: PRESENT: normal external ear exam Mouth exam: PRESENT: moist Neck exam: ABSENT: tracheal deviation Respiratory exam: PRESENT: symmetrical, unlabored, wheezes Cardiovascular exam: PRESENT: RRR GI/Abdominal exam: PRESENT: normal bowel sounds, soft. ABSENT: tenderness Rectal exam: PRESENT: deferred Neurological exam: PRESENT: alert, awake, oriented to person, oriented to place , oriented to time, oriented to situation Psychiatric exam: PRESENT: appropriate affect Skin exam: ABSENT: rash Results Laboratory Results: 10/18/17 04:54 10/18/17 04:54 10/18/17 10/18/17 04:54 04:54 WBC 11.7 H RBC 4.54 Hgb 13.9 Hct 41.6 MCV 92 MCH 30.6 MCHC 33.4 RDW 12.5 Plt Count 179 Sodium 141.6 Potassium 4.8 Chloride 99 Carbon Dioxide 34 H Anion Gap 9 BUN 21 H Creatinine 0.80 Est GFR ( Amer) > 60 Est GFR (Non-Af Amer) > 60 Glucose 190 H Calcium 9.3 Phosphorus 3.0 Magnesium 2.3 10/16/17 16:00 Troponin I < 0.012 Impressions: Chest X-Ray 10/16/17 09:49 IMPRESSION: NO ACUTE RADIOGRAPHIC FINDING IN THE CHEST. NO SIGNIFICANT CHANGE FROM PRIOR STUDY. Assessment & Plan - Diagnosis (1) COPD exacerbation Is this a current diagnosis for this admission?: Yes Plan: Nebs, taper steroids, inhalers, O2, mucolytics, Day 3 of Doxycycline (2) Constipation Is this a current diagnosis for this admission?: Yes Plan: Resolved (3) DVT prophylaxis Is this a current diagnosis for this admission?: Yes Plan: S/C Lovenox (4) History of bladder cancer Is this a current diagnosis for this admission?: Yes Plan: Outpatient follow up (5) Depression Is this a current diagnosis for this admission?: Yes Plan: Resume outpatient meds (6) Alcohol dependence Is this a current diagnosis for this admission?: Yes Plan: Thiamine, Folic acid, Lorazepam prn (7) Acute bronchitis Is this a current diagnosis for this admission?: Yes Plan: above. Check sputum cultures (8) Acute respiratory failure with hypoxia Is this a current diagnosis for this admission?: Yes Plan: As above - Time Time Spent with patient: 25-34 minutes
[2017-10-18] MEDS: LORAZEPAM 1 MG TABLET PO PRN (15:26)
[2017-10-18] MEDS: MONTELUKAST SODIUM 10 MG TABLET PO SCH (18:53)
[2017-10-18] MEDS: GUAIFENESIN 600 MG TABLET.SA PO SCH (22:18)
[2017-10-19] MEDS: METHYLPREDNISOLONE INJ 40 MG/1 ML SDV IV SCH ×4 (02:48→21:35)
[2017-10-19] MEDS: DOXYCYCLINE HYCLATE 100 MG TABLET PO SCH ×2 (06:42→17:57)
[2017-10-19] MEDS: LANSOPRAZOLE 30 MG TAB.RAP.DR PO SCH (06:42)
[2017-10-19] MEDS: GABAPENTIN 300 MG CAPSULE PO SCH ×3 (06:42→21:34)
[2017-10-19] MEDS: LEVALBUTEROL HCL NEB 1.25 MG/3 ML AMPUL NEB SCH ×4 (07:58→20:35)
[2017-10-19] MEDS: THIAMINE HCL 100 MG TABLET PO SCH (09:45)
[2017-10-19] MEDS: GUAIFENESIN 600 MG TABLET.SA PO SCH ×2 (09:45→21:35)
[2017-10-19] MEDS: ASPIRIN 81 MG TABLET, CHEWABLE PO SCH (09:45)
[2017-10-19] MEDS: LACTOBACILLUS ACIDOPHILUS 250 MG TAB PO SCH ×2 (09:45→17:57)
[2017-10-19] MEDS: BUSPIRONE HCL 10 MG TABLET PO SCH ×2 (09:45→21:35)
[2017-10-19] MEDS: FLUTICASONE NASAL SPRAY 50 MCG/SPRY 120 SPRAY/16 GM NASL SCH (09:45)
[2017-10-19] MEDS: ASPIRIN 81 MG TABLET, ENT COATED PO SCH (09:45)
[2017-10-19] MEDS: BUDESONIDE/FORMOTEROL 160-4.5 MCG 60 PUFF/6 GM MDI IH SCH ×2 (09:46→21:33)
[2017-10-19] MEDS: LACTULOSE SYRUP 20 GM/30 ML UDCUP PO SCH ×2 (09:46→17:58)
[2017-10-19] MEDS: FOLIC ACID 1 MG TABLET PO SCH (09:46)
[2017-10-19] MEDS: ENOXAPARIN SODIUM INJ 40 MG/0.4 ML DISP.SYRIN SUBCUT SCH (09:46)
--- NOTE | 2017-10-19 15:21 | PDOC PROGRESS REPORT ---
Subjective Progress Note for:: 10/19/17 Subjective:: 67 yr old male with COPD on home O2 presented with dyspnea and hypoxia and was diagnosed with acute bronchitis and COPD exacerbation. Constipation resolved. He is requesting that O2 NC be left at 3.5L to not reduce it. I reduced the methylprednisolone to 30 mg and he says he feels dyspneic because the dose was reduced and wants it back up to the original dose. Reason For Visit: COPD EXACERBATION Physical Exam Vital Signs: Temp Pulse Resp BP Pulse Ox 98.4 F 95 18 119/83 97 10/19/17 11:52 10/19/17 14:00 10/19/17 12:11 10/19/17 11:52 10/19/17 12:11 Intake & Output 10/18/17 10/19/17 10/20/17 06:59 06:59 06:59 Intake Total 2177 1573 Output Total 1 Balance 2177 1572 Weight 85.4 kg 85.4 kg General appearance: PRESENT: no acute distress Mouth exam: PRESENT: neck supple Respiratory exam: PRESENT: prolonged expiratory phas, symmetrical, unlabored, wheezes Cardiovascular exam: PRESENT: RRR. ABSENT: systolic murmur GI/Abdominal exam: PRESENT: normal bowel sounds, soft. ABSENT: tenderness Rectal exam: PRESENT: deferred Extremities exam: ABSENT: pedal edema Neurological exam: PRESENT: alert, awake, oriented to person, oriented to place , oriented to time, oriented to situation Psychiatric exam: PRESENT: appropriate affect Skin exam: ABSENT: petechiae Results Laboratory Results: 10/18/17 04:54 10/18/17 04:54 10/16/17 17:50 Sputum Gram Stain - Final 10/16/17 17:50 Sputum Sputum Culture - Final Morax.(Branhamella)Catarrhalis Reduced Normal Fatoumata 10/16/17 16:00 Troponin I < 0.012 Impressions: Chest X-Ray 10/16/17 09:49 IMPRESSION: NO ACUTE RADIOGRAPHIC FINDING IN THE CHEST. NO SIGNIFICANT CHANGE FROM PRIOR STUDY. Assessment & Plan - Diagnosis (1) COPD exacerbation Is this a current diagnosis for this admission?: Yes Plan: Nebs, IV steroids, inhalers, O2, mucolytics, Day 4 of Doxycycline Sputum growing Moraxella catarrhalis (2) Constipation Is this a current diagnosis for this admission?: Yes Plan: Resolved (3) DVT prophylaxis Is this a current diagnosis for this admission?: Yes Plan: S/C Lovenox (4) History of bladder cancer Is this a current diagnosis for this admission?: Yes Plan: Outpatient follow up No hematuria (5) Depression Is this a current diagnosis for this admission?: Yes Plan: Resume outpatient meds (6) Alcohol dependence Is this a current diagnosis for this admission?: Yes Plan: Thiamine, Folic acid, Lorazepam prn (7) Acute bronchitis Is this a current diagnosis for this admission?: Yes Plan: As above. (8) Acute respiratory failure with hypoxia Is this a current diagnosis for this admission?: Yes Plan: As above - Time Time Spent with patient: 25-34 minutes
[2017-10-19] MEDS: MONTELUKAST SODIUM 10 MG TABLET PO SCH (17:57)
[2017-10-19] MEDS: LORAZEPAM 1 MG TABLET PO PRN (21:34)
[2017-10-20] MEDS: METHYLPREDNISOLONE INJ 40 MG/1 ML SDV IV SCH ×3 (05:46→21:39)
[2017-10-20] MEDS: DOXYCYCLINE HYCLATE 100 MG TABLET PO SCH ×2 (05:46→18:12)
[2017-10-20] MEDS: LANSOPRAZOLE 30 MG TAB.RAP.DR PO SCH (05:46)
[2017-10-20] MEDS: GABAPENTIN 300 MG CAPSULE PO SCH ×3 (05:47→21:39)
[2017-10-20] MEDS: LEVALBUTEROL HCL NEB 1.25 MG/3 ML AMPUL NEB SCH ×4 (07:47→20:13)
[2017-10-20] MEDS: LORAZEPAM 1 MG TABLET PO PRN ×4 (08:06→21:38)
[2017-10-20] MEDS: BUDESONIDE/FORMOTEROL 160-4.5 MCG 60 PUFF/6 GM MDI IH SCH ×2 (09:22→21:38)
[2017-10-20] MEDS: FLUTICASONE NASAL SPRAY 50 MCG/SPRY 120 SPRAY/16 GM NASL SCH (09:22)
[2017-10-20] MEDS: ENOXAPARIN SODIUM INJ 40 MG/0.4 ML DISP.SYRIN SUBCUT SCH (09:22)
[2017-10-20] MEDS: LACTULOSE SYRUP 20 GM/30 ML UDCUP PO SCH ×2 (09:22→18:07)
[2017-10-20] MEDS: THIAMINE HCL 100 MG TABLET PO SCH (09:23)
[2017-10-20] MEDS: ASPIRIN 81 MG TABLET, CHEWABLE PO SCH (09:23)
[2017-10-20] MEDS: GUAIFENESIN 600 MG TABLET.SA PO SCH ×2 (09:23→21:39)
[2017-10-20] MEDS: FOLIC ACID 1 MG TABLET PO SCH (09:23)
[2017-10-20] MEDS: LACTOBACILLUS ACIDOPHILUS 250 MG TAB PO SCH ×2 (09:23→18:08)
[2017-10-20] MEDS: BUSPIRONE HCL 10 MG TABLET PO SCH ×2 (09:23→21:38)
[2017-10-20] MEDS: MONTELUKAST SODIUM 10 MG TABLET PO SCH (18:07)
--- NOTE | 2017-10-20 18:41 | PDOC PROGRESS REPORT ---
Subjective Progress Note for:: 10/20/17 Subjective:: Patient is seen resting in bedside chair. He continues to complain of some expiratory wheezing and mild dyspnea with minimal exertion. He is asking if he can increase his IV steroid dose. His cough is occasionally productive. He denies any chest pain or dyspnea at rest. Denies any nausea, vomiting or abdominal pain. He denies any fevers or chills overnight. Denies any significant arthralgias or myalgias. Remaining review of systems are negative. Reason For Visit: COPD EXACERBATION Physical Exam Vital Signs: Temp Pulse Resp BP Pulse Ox 98.4 F 90 19 136/84 H 99 10/20/17 16:00 10/20/17 16:00 10/20/17 16:00 10/20/17 16:00 10/20/17 16:00 Intake & Output 10/19/17 10/20/17 10/21/17 06:59 06:59 06:59 Intake Total 1573 2720 1110 Output Total 1 Balance 1572 2720 1110 Weight 85.4 kg 85.5 kg General appearance: PRESENT: no acute distress, well-developed, well-nourished Head exam: PRESENT: atraumatic, normocephalic Eye exam: PRESENT: conjunctiva pink, EOMI, PERRLA. ABSENT: scleral icterus Ear exam: PRESENT: normal external ear exam Mouth exam: PRESENT: moist, tongue midline Neck exam: ABSENT: carotid bruit, JVD, lymphadenopathy, thyromegaly Respiratory exam: PRESENT: decreased breath sounds, symmetrical, wheezes - Bilateral expiratory. ABSENT: rales, rhonchi Cardiovascular exam: PRESENT: RRR. ABSENT: diastolic murmur, rubs, systolic murmur Pulses: PRESENT: normal dorsalis pedis pul Vascular exam: PRESENT: normal capillary refill GI/Abdominal exam: PRESENT: normal bowel sounds, soft. ABSENT: distended, guarding, mass, organolmegaly, rebound, tenderness Rectal exam: PRESENT: deferred Extremities exam: PRESENT: full ROM. ABSENT: calf tenderness, clubbing, pedal edema Musculoskeletal exam: PRESENT: ambulatory, full ROM Neurological exam: PRESENT: alert, awake, oriented to person, oriented to place , oriented to time, oriented to situation, CN II-XII grossly intact. ABSENT: motor sensory deficit Psychiatric exam: PRESENT: anxious Skin exam: PRESENT: dry, intact, warm. ABSENT: cyanosis, rash Results Laboratory Results: 10/18/17 04:54 10/18/17 04:54 10/16/17 16:00 Troponin I < 0.012 Impressions: Chest X-Ray 10/16/17 09:49 IMPRESSION: NO ACUTE RADIOGRAPHIC FINDING IN THE CHEST. NO SIGNIFICANT CHANGE FROM PRIOR STUDY. Assessment & Plan - Diagnosis (1) Acute and chronic respiratory failure with hypercapnia Is this a current diagnosis for this admission?: Yes Plan: He presently is on 3.5 liters his baseline oxygen requirements. Will keep IV solumedrol at 40 mg IV every 8. Attempt to wean once his wheezing improves. Continue other nebulizers and treatment. (2) Acute bronchitis Is this a current diagnosis for this admission?: Yes Plan: Continue doxycycline. (3) COPD exacerbation Is this a current diagnosis for this admission?: Yes Plan: As above (4) Alcohol abuse Is this a current diagnosis for this admission?: Yes Plan: No signs of DTs (5) Chronic interstitial lung disease Is this a current diagnosis for this admission?: Yes (6) DVT prophylaxis Is this a current diagnosis for this admission?: Yes Plan: Continue Lovenox (7) Tobacco dependence Is this a current diagnosis for this admission?: Yes Plan: Counseled. He has no plans to quit - Time Time Spent with patient: 25-34 minutes Total Critical Time (Minutes): 20 Smoking Cessation Education: 3 to 10 minutes Medications reviewed and adjusted accordingly: Yes Anticipated discharge: Home
[2017-10-21] MEDS: LANSOPRAZOLE 30 MG TAB.RAP.DR PO SCH (05:41)
[2017-10-21] MEDS: LORAZEPAM 1 MG TABLET PO PRN ×3 (05:41→17:25)
[2017-10-21] MEDS: DOXYCYCLINE HYCLATE 100 MG TABLET PO SCH ×2 (05:42→17:25)
[2017-10-21] MEDS: GABAPENTIN 300 MG CAPSULE PO SCH ×3 (05:42→21:44)
[2017-10-21] MEDS: METHYLPREDNISOLONE INJ 40 MG/1 ML SDV IV SCH ×3 (05:42→21:58)
[2017-10-21] MEDS: LEVALBUTEROL HCL NEB 1.25 MG/3 ML AMPUL NEB SCH ×4 (08:24→20:17)
[2017-10-21] MEDS: ENOXAPARIN SODIUM INJ 40 MG/0.4 ML DISP.SYRIN SUBCUT SCH (10:53)
[2017-10-21] MEDS: BUSPIRONE HCL 10 MG TABLET PO SCH ×2 (10:54→21:43)
[2017-10-21] MEDS: ASPIRIN 81 MG TABLET, CHEWABLE PO SCH (10:54)
[2017-10-21] MEDS: THIAMINE HCL 100 MG TABLET PO SCH (10:54)
[2017-10-21] MEDS: LACTULOSE SYRUP 20 GM/30 ML UDCUP PO SCH ×2 (10:54→17:25)
[2017-10-21] MEDS: FOLIC ACID 1 MG TABLET PO SCH (10:55)
[2017-10-21] MEDS: LACTOBACILLUS ACIDOPHILUS 250 MG TAB PO SCH ×2 (10:55→17:26)
[2017-10-21] MEDS: GUAIFENESIN 600 MG TABLET.SA PO SCH ×2 (10:55→21:44)
[2017-10-21] MEDS: FLUTICASONE NASAL SPRAY 50 MCG/SPRY 120 SPRAY/16 GM NASL SCH (10:59)
[2017-10-21] MEDS: BUDESONIDE/FORMOTEROL 160-4.5 MCG 60 PUFF/6 GM MDI IH SCH ×2 (11:22→21:43)
[2017-10-21] MEDS: MONTELUKAST SODIUM 10 MG TABLET PO SCH (17:25)
--- NOTE | 2017-10-21 19:58 | PDOC PROGRESS REPORT ---
Subjective Progress Note for:: 10/21/17 Subjective:: 67 yr old male with COPD on home O2 presented with dyspnea and hypoxia and was diagnosed with acute bronchitis and COPD exacerbation. On O2 3 L as outpatient. Constipation resolved. 10/21/17-- Feels breathing is slowly improving. No fever or chills, has cough, but chronic. No chest pain or palpitations. Reason For Visit: COPD EXACERBATION Physical Exam Vital Signs: Temp Pulse Resp BP Pulse Ox 98.2 F 111 H 20 128/76 H 94 10/21/17 16:49 10/21/17 16:49 10/21/17 16:49 10/21/17 16:49 10/21/17 16:49 Intake & Output 10/20/17 10/21/17 10/22/17 06:59 06:59 06:59 Intake Total 2720 2233 23 Balance 2720 2233 23 Weight 85.5 kg 85.5 kg GEN: NAD, well-developed, well-nourished CV: RRR, NL S1S2 LUNGS: Scattered expiratory wheezing bilaterally ABDOMEN Soft, NT, +BS EXTERMITIES: 2+ pedal edema bilaterally NEURO: Alert, oriented, no acute weakness Results Laboratory Results: 10/18/17 04:54 10/18/17 04:54 10/16/17 16:00 Troponin I < 0.012 Impressions: Chest X-Ray 10/16/17 09:49 IMPRESSION: NO ACUTE RADIOGRAPHIC FINDING IN THE CHEST. NO SIGNIFICANT CHANGE FROM PRIOR STUDY. Assessment & Plan - Plan Summary Plan Summary: (1) Acute and chronic respiratory failure with hypercapnia Is this a current diagnosis for this admission?: Yes Plan: He presently is on 3.5 liters his baseline oxygen requirements. Will wean IV solumedrol at 40 mg IV every 8 to every 12 hours. Continue other nebulizers and treatment. (2) Acute bronchitis Is this a current diagnosis for this admission?: Yes Plan: Continue doxycycline. (3) COPD exacerbation Is this a current diagnosis for this admission?: Yes Plan: As above (4) Alcohol abuse Is this a current diagnosis for this admission?: Yes Plan: No signs of DTs (5) Chronic interstitial lung disease Is this a current diagnosis for this admission?: Yes (6) DVT prophylaxis Is this a current diagnosis for this admission?: Yes Plan: Continue Lovenox (7) Tobacco dependence Is this a current diagnosis for this admission?: Yes Plan: Counseled but insists he has no plans to quit
[2017-10-21] MEDS ORDERED: METHYLPREDNISOLONE INJ 40 MG/1 ML SDV IV SCH (20:00)
[2017-10-22 06:14] LABS: HEMATOCRIT 43.1 % (37.9-51.0); HEMOGLOBIN 14.4 g/dL (13.5-17.0); MEAN CORPUSCULAR HEMOGLOBIN 30.9 pg (27.0-33.4); MEAN CORPUSCULAR HGB CONC 33.4 g/dL (32.0-36.0); MEAN CORPUSCULAR VOLUME 93 fl (80-97); PLATELET COUNT 192 10^3/uL (150-450); RED BLOOD COUNT 4.66 10^6/uL (4.35-5.55); RED CELL DISTRIBUTION WIDTH 12.9 % (11.5-14.0); WHITE BLOOD COUNT 12.8 10^3/uL (4.0-10.5)
[2017-10-22] MEDS: DOXYCYCLINE HYCLATE 100 MG TABLET PO SCH ×2 (06:19→17:10)
[2017-10-22] MEDS: GABAPENTIN 300 MG CAPSULE PO SCH ×3 (06:19→23:31)
[2017-10-22] MEDS: LANSOPRAZOLE 30 MG TAB.RAP.DR PO SCH (06:19)
[2017-10-22 06:20] LABS: BLOOD UREA NITROGEN 22 mg/dL (7-20); CALCIUM 9.1 mg/dL (8.4-10.2); CHLORIDE 97 mmol/L (98-107); GLUCOSE 141 mg/dL (75-110); POTASSIUM 5.3 mmol/L (3.6-5.0); SODIUM 144.6 mmol/L (137-145)
[2017-10-22 06:37] LABS: ABSOLUTE LYMPHOCYTES# (MANUAL) 1.4 10^3/uL (0.5-4.7); ABSOLUTE MONOCYTES # (MANUAL) 0.5 10^3/uL (0.1-1.4); ABSOLUTE NEUTROPHILS# (MANUAL) 10.9 10^3/uL (1.7-8.2); ANION GAP 6 (5-19); BAND NEUTROPHILS % (MANUAL) 1 % (3-5); BASOPHILS % (MANUAL) 0 % (0-2); EOSINOPHILS % (MANUAL) 0 % (0-6); LYMPHOCYTES % (MANUAL) 11 % (13-45); METAMYELOCYTES % (MANUAL) 2 % (0); MONOCYTES % (MANUAL) 4 % (3-13); MYELOCYTES % (MANUAL) 1 % (0); SEGMENTED NEUTROPHILS % (MAN) 81 % (42-78); TOTAL CELLS COUNTED 100
[2017-10-22 06:38] LABS: PLATELET COMMENT ADEQUATE
[2017-10-22 06:39] LABS: TOXIC GRANULATION 1+
[2017-10-22 06:43] LABS: CARBON DIOXIDE 42 mmol/L (22-30)
[2017-10-22] MEDS: LEVALBUTEROL HCL NEB 1.25 MG/3 ML AMPUL NEB SCH ×4 (07:44→20:03)
[2017-10-22 09:19] LABS: ARTERIAL BLOOD BASE EXCESS 10.7 mmol/L; ARTERIAL BLOOD H2CO3 2.78 mmol/L (1.05-1.35); ARTERIAL BLOOD HCO3 41.9 mmol/L (20-26); ARTERIAL BLOOD O2 SATURATION 99.5 % (94-98); ARTERIAL BLOOD PH 7.27 (7.35-7.45); ARTERIAL BLOOD PO2 266.3 mmHg (80-100); ARTERIAL BLOOD TOTAL CO2 44.7 mmol/L (23-27)
[2017-10-22 09:20] LABS: ARTERIAL BLOOD FIO2 60%
[2017-10-22 09:48] LABS: ARTERIAL BLOOD PCO2 92.5 mmHg (35-45)
[2017-10-22] MEDS: FOLIC ACID 1 MG TABLET PO SCH (10:25)
[2017-10-22] MEDS: BUDESONIDE/FORMOTEROL 160-4.5 MCG 60 PUFF/6 GM MDI IH SCH ×2 (10:25→23:32)
[2017-10-22] MEDS: FLUTICASONE NASAL SPRAY 50 MCG/SPRY 120 SPRAY/16 GM NASL SCH (10:25)
[2017-10-22] MEDS: GUAIFENESIN 600 MG TABLET.SA PO SCH ×2 (10:25→23:29)
[2017-10-22] MEDS: LACTOBACILLUS ACIDOPHILUS 250 MG TAB PO SCH ×2 (10:26→17:11)
[2017-10-22] MEDS: ASPIRIN 81 MG TABLET, CHEWABLE PO SCH (10:26)
[2017-10-22] MEDS: THIAMINE HCL 100 MG TABLET PO SCH (10:26)
[2017-10-22] MEDS: BUSPIRONE HCL 10 MG TABLET PO SCH ×2 (10:26→23:30)
[2017-10-22] MEDS: METHYLPREDNISOLONE INJ 40 MG/1 ML SDV IV SCH ×2 (10:27→23:31)
[2017-10-22] MEDS: ENOXAPARIN SODIUM INJ 40 MG/0.4 ML DISP.SYRIN SUBCUT SCH (10:27)
[2017-10-22] MEDS: LACTULOSE SYRUP 20 GM/30 ML UDCUP PO SCH ×2 (10:39→17:11)
[2017-10-22 11:43] LABS: ARTERIAL BLOOD H2CO3 2.25 mmol/L (1.05-1.35); ARTERIAL BLOOD O2 SATURATION 94.4 % (94-98); ARTERIAL BLOOD PH 7.37 (7.35-7.45); ARTERIAL BLOOD PO2 76.9 mmHg (80-100); ARTERIAL BLOOD TOTAL CO2 44.3 mmol/L (23-27)
[2017-10-22 11:45] LABS: ARTERIAL BLOOD FIO2 35%
[2017-10-22 11:46] LABS: ARTERIAL BLOOD PCO2 74.7 mmHg (35-45)
[2017-10-22] MEDS: MONTELUKAST SODIUM 10 MG TABLET PO SCH (17:10)
--- NOTE | 2017-10-22 19:29 | PDOC PROGRESS REPORT ---
Subjective Progress Note for:: 10/22/17 Subjective:: 67 yr old male with COPD on home O2 presented with dyspnea and hypoxia and was diagnosed with acute bronchitis and COPD exacerbation. On O2 3.5 L as outpatient. Constipation resolved. 10/21/17-- Feels breathing continues to slowly improve following decreasing solumetrol dose yesterday. No fever or chills, has cough, but chronic. No chest pain or palpitations. Reason For Visit: COPD EXACERBATION Physical Exam Vital Signs: Temp Pulse Resp BP Pulse Ox 97.8 F 101 H 19 120/85 95 10/22/17 08:00 10/22/17 16:04 10/22/17 16:04 10/22/17 08:00 10/22/17 16:04 Intake & Output 10/21/17 10/22/17 10/23/17 06:59 06:59 06:59 Intake Total 2233 691 552 Balance 2233 691 552 Weight 85.5 kg 87.3 kg GEN: NAD, well-developed, well-nourished CV: RRR, NL S1S2 LUNGS: Scattered expiratory wheezing bilaterally ABDOMEN Soft, NT, +BS EXTERMITIES: 2+ pedal edema bilaterally NEURO: Alert, oriented, no acute weaknes Results Laboratory Results: 10/22/17 05:57 10/22/17 05:57 10/22/17 10/22/17 10/22/17 05:57 05:57 08:55 WBC 12.8 H RBC 4.66 Hgb 14.4 Hct 43.1 MCV 93 MCH 30.9 MCHC 33.4 RDW 12.9 Plt Count 192 Seg Neutrophils % Not Reportable Lymphocytes % Not Reportable Monocytes % Not Reportable Eosinophils % Not Reportable Basophils % Not Reportable Absolute Neutrophils Not Reportable Absolute Lymphocytes Not Reportable Absolute Monocytes Not Reportable Absolute Eosinophils Not Reportable Absolute Basophils Not Reportable Carbonic Acid 2.78 H HCO3/H2CO3 Ratio 15:1 ABG pH 7.27 L ABG pCO2 92.5 H* ABG pO2 266.3 H ABG HCO3 41.9 H ABG O2 Saturation 99.5 H ABG Base Excess 10.7 FiO2 60% Sodium 144.6 Potassium 5.3 H Chloride 97 L Carbon Dioxide 42 H* Anion Gap 6 BUN 22 H Creatinine 0.82 Est GFR ( Amer) > 60 Est GFR (Non-Af Amer) > 60 Glucose 141 H Calcium 9.1 10/22/17 11:15 WBC RBC Hgb Hct MCV MCH MCHC RDW Plt Count Seg Neutrophils % Lymphocytes % Monocytes % Eosinophils % Basophils % Absolute Neutrophils Absolute Lymphocytes Absolute Monocytes Absolute Eosinophils Absolute Basophils Carbonic Acid 2.25 H HCO3/H2CO3 Ratio 18:1 ABG pH 7.37 ABG pCO2 74.7 H* ABG pO2 76.9 L ABG HCO3 42.0 H ABG O2 Saturation 94.4 ABG Base Excess 13.0 FiO2 35% Sodium Potassium Chloride Carbon Dioxide Anion Gap BUN Creatinine Est GFR ( Amer) Est GFR (Non-Af Amer) Glucose Calcium 10/16/17 16:00 Troponin I < 0.012 Impressions: Chest X-Ray 10/16/17 09:49 IMPRESSION: NO ACUTE RADIOGRAPHIC FINDING IN THE CHEST. NO SIGNIFICANT CHANGE FROM PRIOR STUDY. Assessment & Plan - Plan Summary Plan Summary: (1) Acute and chronic respiratory failure with hypercapnia Is this a current diagnosis for this admission?: Yes Plan: He presently is on 3.5 liters his baseline oxygen requirements. Will change IV solumedrol 40 mg IV every 12 hours for now. Continue nebulizers and treatment. (2) Acute bronchitis Is this a current diagnosis for this admission?: Yes Plan: Continue doxycycline. (3) COPD exacerbation Is this a current diagnosis for this admission?: Yes Plan: As above (4) Alcohol abuse Is this a current diagnosis for this admission?: Yes Plan: No signs of DTs (5) Chronic interstitial lung disease Is this a current diagnosis for this admission?: Yes (6) DVT prophylaxis Is this a current diagnosis for this admission?: Yes Plan: Continue Lovenox (7) Tobacco dependence Is this a current diagnosis for this admission?: Yes Plan: Counseled, states he was just playing with me yesterday when he said he had no plans to quit. States he already quit a few weeks ago.
[2017-10-23] MEDS: LANSOPRAZOLE 30 MG TAB.RAP.DR PO SCH (05:02)
[2017-10-23] MEDS: DOXYCYCLINE HYCLATE 100 MG TABLET PO SCH ×2 (05:02→17:14)
[2017-10-23] MEDS: GABAPENTIN 300 MG CAPSULE PO SCH ×3 (05:02→22:07)
[2017-10-23 05:31] LABS: ARTERIAL BLOOD BASE EXCESS 11.9 mmol/L; ARTERIAL BLOOD H2CO3 1.95 mmol/L (1.05-1.35); ARTERIAL BLOOD HCO3 39.6 mmol/L (20-26); ARTERIAL BLOOD O2 SATURATION 94.5 % (94-98); ARTERIAL BLOOD PCO2 64.7 mmHg (35-45); ARTERIAL BLOOD PH 7.41 (7.35-7.45); ARTERIAL BLOOD PO2 73.9 mmHg (80-100); ARTERIAL BLOOD TOTAL CO2 41.6 mmol/L (23-27)
[2017-10-23 05:32] LABS: ARTERIAL BLOOD FIO2 3L
[2017-10-23] MEDS: LEVALBUTEROL HCL NEB 1.25 MG/3 ML AMPUL NEB SCH ×4 (08:40→19:35)
[2017-10-23 09:42] LABS: ANION GAP 10 (5-19); BLOOD UREA NITROGEN 24 mg/dL (7-20); CALCIUM 9.5 mg/dL (8.4-10.2); CARBON DIOXIDE 37 mmol/L (22-30); CHLORIDE 95 mmol/L (98-107); GLUCOSE 184 mg/dL (75-110); POTASSIUM 4.6 mmol/L (3.6-5.0)
[2017-10-23] MEDS: METHYLPREDNISOLONE INJ 40 MG/1 ML SDV IV SCH (10:12)
[2017-10-23] MEDS: LACTULOSE SYRUP 20 GM/30 ML UDCUP PO SCH ×2 (10:12→17:12)
[2017-10-23] MEDS: ENOXAPARIN SODIUM INJ 40 MG/0.4 ML DISP.SYRIN SUBCUT SCH (10:12)
[2017-10-23 10:13] LABS: HEMATOCRIT 43.4 % (37.9-51.0); HEMOGLOBIN 14.1 g/dL (13.5-17.0); MEAN CORPUSCULAR HEMOGLOBIN 30.2 pg (27.0-33.4); MEAN CORPUSCULAR HGB CONC 32.6 g/dL (32.0-36.0); MEAN CORPUSCULAR VOLUME 93 fl (80-97); PLATELET COUNT 181 10^3/uL (150-450); RED BLOOD COUNT 4.69 10^6/uL (4.35-5.55); RED CELL DISTRIBUTION WIDTH 12.9 % (11.5-14.0); WHITE BLOOD COUNT 11.5 10^3/uL (4.0-10.5)
[2017-10-23] MEDS: ASPIRIN 81 MG TABLET, CHEWABLE PO SCH (10:13)
[2017-10-23] MEDS: FOLIC ACID 1 MG TABLET PO SCH (10:13)
[2017-10-23] MEDS: GUAIFENESIN 600 MG TABLET.SA PO SCH ×2 (10:13→22:06)
[2017-10-23] MEDS: THIAMINE HCL 100 MG TABLET PO SCH (10:13)
[2017-10-23] MEDS: LACTOBACILLUS ACIDOPHILUS 250 MG TAB PO SCH ×2 (10:13→17:12)
[2017-10-23] MEDS: BUSPIRONE HCL 10 MG TABLET PO SCH ×2 (10:13→22:07)
[2017-10-23] MEDS: FLUTICASONE NASAL SPRAY 50 MCG/SPRY 120 SPRAY/16 GM NASL SCH (10:17)
[2017-10-23] MEDS: BUDESONIDE/FORMOTEROL 160-4.5 MCG 60 PUFF/6 GM MDI IH SCH ×2 (10:17→22:08)
[2017-10-23 10:29] LABS: ABSOLUTE LYMPHOCYTES# (MANUAL) 1.6 10^3/uL (0.5-4.7); ABSOLUTE MONOCYTES # (MANUAL) 0.6 10^3/uL (0.1-1.4); ABSOLUTE NEUTROPHILS# (MANUAL) 9.3 10^3/uL (1.7-8.2); BASOPHILS % (MANUAL) 0 % (0-2); EOSINOPHILS % (MANUAL) 0 % (0-6); LYMPHOCYTES % (MANUAL) 14 % (13-45); MONOCYTES % (MANUAL) 5 % (3-13); SEGMENTED NEUTROPHILS % (MAN) 81 % (42-78); TOTAL CELLS COUNTED 100
[2017-10-23 10:30] LABS: PLATELET COMMENT ADEQUATE; RBC MORPHOLOGY COMMENT NORMO-CYTIC/CHROMIC; TOXIC GRANULATION 1+
--- NOTE | 2017-10-23 15:46 | PDOC PROGRESS REPORT ---
Subjective Progress Note for:: 10/23/17 Subjective:: 67 yr old male with COPD on home O2 presented with dyspnea and hypoxia and was diagnosed with acute bronchitis and COPD exacerbation. Apparently on O2 3.5 L as outpatient. Unfortunately yesterday patient had some somnolence with weaning down of Solu- Medrol and ABG revealed a PCO2 in the 90s and he was treated with BiPAP. ABG better this morning, with PCO2 64. He is feeling much better, alert and oriented 3, breathing better. No fever or chills, has cough, but chronic. No chest pain or palpitations. Remains on Solu-Medrol 40 mg IV every 12 at this time. Will attempt to switch to prednisone 40 mg twice daily and hope he continues to do fine, as patient is anxious to go home. Reason For Visit: COPD EXACERBATION Physical Exam Vital Signs: Temp Pulse Resp BP Pulse Ox 98.0 F 105 H 20 120/81 94 10/23/17 12:00 10/23/17 14:00 10/23/17 12:00 10/23/17 12:00 10/23/17 12:00 Intake & Output 10/22/17 10/23/17 10/24/17 06:59 06:59 06:59 Intake Total 691 1578 Balance 691 1578 Weight 87.3 kg 87.5 kg GEN: NAD, well-developed, well-nourished CV: RRR, NL S1S2 LUNGS: Scattered expiratory wheezing bilaterally ABDOMEN Soft, NT, +BS EXTERMITIES: edema NEURO: Alert, oriented, no acute weaknes Results Laboratory Results: 10/23/17 09:02 10/23/17 09:02 10/23/17 10/23/17 10/23/17 05:10 09:02 09:02 WBC 11.5 H RBC 4.69 Hgb 14.1 Hct 43.4 MCV 93 MCH 30.2 MCHC 32.6 RDW 12.9 Plt Count 181 Seg Neutrophils % Not Reportable Lymphocytes % Not Reportable Monocytes % Not Reportable Eosinophils % Not Reportable Basophils % Not Reportable Absolute Neutrophils Not Reportable Absolute Lymphocytes Not Reportable Absolute Monocytes Not Reportable Absolute Eosinophils Not Reportable Absolute Basophils Not Reportable Carbonic Acid 1.95 H HCO3/H2CO3 Ratio 20:1 ABG pH 7.41 ABG pCO2 64.7 H ABG pO2 73.9 L ABG HCO3 39.6 H ABG O2 Saturation 94.5 ABG Base Excess 11.9 FiO2 3L Sodium 142.0 Potassium 4.6 Chloride 95 L Carbon Dioxide 37 H Anion Gap 10 BUN 24 H Creatinine 0.90 Est GFR ( Amer) > 60 Est GFR (Non-Af Amer) > 60 Glucose 184 H Calcium 9.5 10/16/17 16:00 Troponin I < 0.012 Impressions: Chest X-Ray 10/16/17 09:49 IMPRESSION: NO ACUTE RADIOGRAPHIC FINDING IN THE CHEST. NO SIGNIFICANT CHANGE FROM PRIOR STUDY. Assessment & Plan - Plan Summary Plan Summary: (1) Acute and chronic respiratory failure with hypercapnia Is this a current diagnosis for this admission?: Yes Plan: He presently is on BiPAP and on 3.5 liters his baseline oxygen requirements. We continue to use BiPAP nightly and as needed. Will discontinue IV solumedrol 40 mg IV every 12 and start prednisone 40 mg twice daily. Continue nebulizers. (2) Acute bronchitis Is this a current diagnosis for this admission?: Yes Plan: Continue doxycycline. (3) COPD exacerbation Is this a current diagnosis for this admission?: Yes Plan: As above (4) Alcohol abuse Is this a current diagnosis for this admission?: Yes Plan: No signs of DTs (5) Chronic interstitial lung disease Is this a current diagnosis for this admission?: Yes (6) DVT prophylaxis Is this a current diagnosis for this admission?: Yes Plan: Continue Lovenox (7) Tobacco dependence Is this a current diagnosis for this admission?: Yes Plan: States he quit a few weeks ago.
[2017-10-23] MEDS: MONTELUKAST SODIUM 10 MG TABLET PO SCH (17:13)
[2017-10-23] MEDS: PREDNISONE 20 MG TABLET PO SCH (17:13)
[2017-10-24] MEDS: GABAPENTIN 300 MG CAPSULE PO SCH (05:06)
[2017-10-24] MEDS: LANSOPRAZOLE 30 MG TAB.RAP.DR PO SCH (05:07)
[2017-10-24] MEDS: LEVALBUTEROL HCL NEB 1.25 MG/3 ML AMPUL NEB SCH ×2 (08:09→11:47)
[2017-10-24 08:23] VITALS: BP 130/83
[2017-10-24] MEDS: LACTULOSE SYRUP 20 GM/30 ML UDCUP PO SCH (09:53)
[2017-10-24] MEDS: FLUTICASONE NASAL SPRAY 50 MCG/SPRY 120 SPRAY/16 GM NASL SCH (09:53)
[2017-10-24] MEDS: ENOXAPARIN SODIUM INJ 40 MG/0.4 ML DISP.SYRIN SUBCUT SCH (09:53)
[2017-10-24] MEDS: FOLIC ACID 1 MG TABLET PO SCH (09:54)
[2017-10-24] MEDS: BUDESONIDE/FORMOTEROL 160-4.5 MCG 60 PUFF/6 GM MDI IH SCH (09:54)
[2017-10-24] MEDS: PREDNISONE 20 MG TABLET PO SCH (09:54)
[2017-10-24] MEDS: ASPIRIN 81 MG TABLET, CHEWABLE PO SCH (09:54)
[2017-10-24] MEDS: LACTOBACILLUS ACIDOPHILUS 250 MG TAB PO SCH (09:55)
[2017-10-24] MEDS: GUAIFENESIN 600 MG TABLET.SA PO SCH (09:55)
[2017-10-24] MEDS: THIAMINE HCL 100 MG TABLET PO SCH (09:55)
[2017-10-24] MEDS: BUSPIRONE HCL 10 MG TABLET PO SCH (09:55)
--- NOTE | 2017-10-24 12:16 | PDOC DISCHARGE SUMMARY ---
General - Admit/Disc Date/PCP Admission Date/Primary Care Provider: 10/16/17 14:10 Discharge Date: 10/24/17 - Discharge Diagnosis (1) COPD exacerbation Is this a current diagnosis for this admission?: Yes (2) Constipation Is this a current diagnosis for this admission?: Yes (3) DVT prophylaxis Is this a current diagnosis for this admission?: Yes (4) History of bladder cancer Is this a current diagnosis for this admission?: Yes (5) Depression Is this a current diagnosis for this admission?: Yes (6) Alcohol dependence Is this a current diagnosis for this admission?: Yes (7) Acute bronchitis Is this a current diagnosis for this admission?: Yes (8) Acute respiratory failure with hypoxia Is this a current diagnosis for this admission?: Yes (9) Acute and chronic respiratory failure with hypercapnia Is this a current diagnosis for this admission?: Yes Summary: Due to a combination of COPD and suspected CHAITANYA - Additional Information Discharge Diet: Cardiac Discharge Activity: Activity As Tolerated Prescriptions: Omeprazole 20 mg PO DAILY 10 Days #10 tablet. Prednisone 60 mg PO DAILY #26 tablet Home Medications: Albuterol Sulfate [Albuterol Sulfate 2.5mg/3 mL] 3 ml IH RTQ4HP PRN 10/16/17 Albuterol Sulfate [Ventolin Hfa] 2 puff IH Q4HP PRN 10/16/17 Aspirin 81 mg PO DAILY 10/16/17 Budesonide/Formoterol Fumarate [Symbicort HFA 160-4.5 mcg Inhaler 6 gm] 2 puff IH Q12 10/16/17 Buspirone HCl [Buspar 15 mg Tablet] 15 mg PO Q12 10/16/17 Gabapentin [Neurontin 300 mg Capsule] 300 mg PO Q8 10/16/17 Budesonide/Formoterol Fumarate [Symbicort HFA 160-4.5 mcg Inhaler 6 gm] 2 puff IH Q12 inhaler 10/24/17 Fluticasone Propionate [Flonase Nasal Cordova 50 Mcg/Cordova 16 gm] 2 spray NASL DAILY spray.pump 10/24/17 Guaifenesin [Mucinex Sr 600 mg Tablet.sa] 1,200 mg PO Q12 tablet.sa 10/24/17 Lactobacillus Acidophilus [Bacid 250 mg Tablet] 500 mg PO BID tab 10/24/17 Montelukast Sodium [Singulair 10 mg Tablet] 10 mg PO QPM tablet 10/24/17 Omeprazole 20 mg PO DAILY 10 Days #10 tablet. 10/24/17 Prednisone 60 mg PO DAILY #26 tablet 10/24/17 History of Present Illness History of Present Illness: MANI FLYNN is a 67 year old male with a past medical history of Bladder canncer- Dr. Funes is his urologist COPD- on 3.5 L NC at home Home meds Buspar tid (dose unknown) Spiriva daily Symbicort bid ASA 81 mg daily Flonase Proair Albuetrol nebs He presented to the hospital with a 2 day history of progressively worsening dyspnea and cough with greenish yellow expectoration. No fever/ rhinorrhea/ sore throat/chest pain. Reports severe constipation. He was treated with steroids, nebs, magnesium and referred for admission. The patient gradually improved. Sputum culture grew Moraxella catarrhalis and he received a course of Doxycycline. He likely has CHAITANYA and would benefit from a sleep study as an outpatient. Hospital Course Hospital Course: Stable and ready for discharge. he has oxygen at home Physical Exam Vital Signs: Temp Pulse Resp BP Pulse Ox 98 F 74 21 H 130/83 H 98 10/24/17 12:01 10/24/17 12:01 10/24/17 12:01 10/24/17 12:01 10/24/17 12:01 Intake & Output 10/23/17 10/24/17 10/25/17 06:59 06:59 06:59 Intake Total 1578 1650 Balance 1578 1650 Weight 87.5 kg 87.7 kg General appearance: PRESENT: no acute distress Respiratory exam: PRESENT: symmetrical, unlabored. ABSENT: wheezes Neurological exam: PRESENT: alert, awake Results Laboratory Results: 10/23/17 09:02 10/23/17 09:02 10/16/17 16:00 Troponin I < 0.012 Impressions: Chest X-Ray 10/16/17 09:49 IMPRESSION: NO ACUTE RADIOGRAPHIC FINDING IN THE CHEST. NO SIGNIFICANT CHANGE FROM PRIOR STUDY. Qualifiers - * PATIENT BEING DISCHARGED WITH ANY OF THE FOLLOWING DIAGNOSIS: No Plan Time Spent: Greater than 30 Minutes
[2017-10-25 08:22] LABS: PATH REVIEW PATHOLOGIST REVIEWED
== END 2017-10-24 12:31 | disposition home or self-care (01) | DRG 190 ==
LOC: ER 09:30 → EH 14:10 → 4N 15:52
PROVIDERS: ADMIT Internal Medicine; ATTEND Internal Medicine
PROC: 5A09457 Assistance with Respiratory Ventilation, 24-96 Consecutive Hours, Continuous Positive Airway Pressure (ICD-10-PCS; principal; 2017-10-16)
PROC: 3E0F73Z Introduction of Anti-inflammatory into Respiratory Tract, Via Natural or Artificial Opening (ICD-10-PCS; 2017-10-16)
PROC: 5A09457 Assistance with Respiratory Ventilation, 24-96 Consecutive Hours, Continuous Positive Airway Pressure (ICD-10-PCS; 2017-10-22)
DX: J44.1 Chronic obstructive pulmonary disease with (acute) exacerbation (principal); J96.01 Acute respiratory failure with hypoxia; J96.22 Acute and chronic respiratory failure with hypercapnia; J84.9 Interstitial pulmonary disease, unspecified; K59.00 Constipation, unspecified; F32.9 Major depressive disorder, single episode, unspecified; F10.20 Alcohol dependence, uncomplicated; J20.9 Acute bronchitis, unspecified; J44.0 Chronic obstructive pulmonary disease with (acute) lower respiratory infection; G47.33 Obstructive sleep apnea (adult) (pediatric); E78.00 Pure hypercholesterolemia, unspecified; K21.9 Gastro-esophageal reflux disease without esophagitis; K44.9 Diaphragmatic hernia without obstruction or gangrene; M19.90 Unspecified osteoarthritis, unspecified site; F90.9 Attention-deficit hyperactivity disorder, unspecified type; F31.9 Bipolar disorder, unspecified; Z90.49 Acquired absence of other specified parts of digestive tract; Z85.51 Personal history of malignant neoplasm of bladder; Z87.891 Personal history of nicotine dependence; Z79.899 Other long term (current) drug therapy; Z99.81 Dependence on supplemental oxygen; Z79.82 Long term (current) use of aspirin; Z79.52 Long term (current) use of systemic steroids; Z82.49 Family history of ischemic heart disease and other diseases of the circulatory system; Z83.3 Family history of diabetes mellitus
CPT/HCPCS: 36415; 36600; 71045; 80048; 80053; 80061; 82550; 82553; 82803; 83036; 83735; 83880; 84100; 84443; 84484; 85025; 85027; 85610; 87070; 87077; 87205; 93005; 93010; 94640; 94660; 96365; 96375; 99291; J1650; J2920; J2930; J3475; J3490; J7030; J7512; J7620

== ENCOUNTER 2017-10-27 05:15 | Inpatient (IN) | payer MEDICARE ==
[2017-10-27] MEDS ORDERED: IPRATROPIUM/ALBUTEROL 0.5-2.5 MG/3 ML AMPUL NEB ONE ×2 (05:26→06:13)
[2017-10-27] MEDS ORDERED: METHYLPREDNISOLONE INJ 125 MG/2 ML SDV IV ONE (05:26)
--- NOTE | 2017-10-27 05:26 | ER Document Report ---
Doctor's Note Notes: 10/27/17 05:24 I performed a quick triage evaluation the patient. Patient is a 67-year-old male who presents with complaint of difficulty breathing and wheezing. He has a history of COPD. No history of CHF. He states are from difficulty breathing this morning gradually worsened throughout the day and tonight became intolerable. He was 3-1/2 L of oxygen typically at home. He did not bring his oxygen when he came to the ER and he was 78% on room air when he arrived in triage. He is breathing a little over 30 times a minute. He is a bit tachycardic. He does have a fever in triage of 101. He says he did not think it a fever at home. On exam patient does have some diffuse scattered wheezing. He does have some retractions. He is able speak in 2-3 word sentences. I have ordered a chest x-ray as lab work. I have ordered BiPAP. Have ordered magnesium Solu-Medrol and breathing treatments. We will keep him on a desk monitor. Dictation of this chart was performed using voice recognition software; therefore, there may be some unintended grammatical errors. 10/27/17 05:26
[2017-10-27] MEDS ORDERED: ACETAMINOPHEN 325 MG TABLET PO ONE (05:30)
[2017-10-27] MEDS ORDERED: ACETAMINOPHEN 325 MG TABLET ONE (05:31)
[2017-10-27] MEDS: MAGNESIUM SULFATE/D5W 1 GM/100 ML RTUPB IV SCH ×2 (05:39→06:08)
--- NOTE | 2017-10-27 05:55 | RADIOLOGY REPORT (SQ) ---
EXAM DESCRIPTION: XR CHEST 1 VIEW COMPLETED DATE/TME: 10/27/2017 05:23 CLINICAL HISTORY: dyspnea COMPARISON: 10/16/2017 FINDINGS: Single frontal view of the chest. Atherosclerotic calcification of the aortic arch. Heart is not enlarged. Leads overlie the chest. Stable chronic lung changes. No consolidation, pneumothorax, or pleural effusion. No displaced rib fractures identified. Upper abdominal soft tissues are unremarkable. IMPRESSION: 1. No acute pulmonary process identified. No significant change.
[2017-10-27 05:58] LABS: VENOUS BLOOD BASE EXCESS 9.5 mmol/L; VENOUS BLOOD HCO3 35.9 mmol/L (20-32); VENOUS BLOOD PCO2 54.2 mmHg (35-63); VENOUS BLOOD PH 7.44 (7.30-7.42)
[2017-10-27 06:04] LABS: ABSOLUTE LYMPHOCYTES (AUTO) 0.9 10^3/uL (0.5-4.7); ABSOLUTE MONOCYTES (AUTO) 0.9 10^3/uL (0.1-1.4); ABSOLUTE NEUT (AUTO) 11.8 10^3/uL (1.7-8.2); BASOPHILS % (AUTO) 0.3 % (0-2); EOSINOPHILS % (AUTO) 0.1 % (0-6); HEMOGLOBIN 15.6 g/dL (13.5-17.0); LYMPHOCYTES % (AUTO) 6.5 % (13-45); MEAN CORPUSCULAR HEMOGLOBIN 30.1 pg (27.0-33.4); MEAN CORPUSCULAR HGB CONC 33.1 g/dL (32.0-36.0); MEAN CORPUSCULAR VOLUME 91 fl (80-97); MONOCYTES % (AUTO) 6.9 % (3-13); PLATELET COUNT 118 10^3/uL (150-450); RED BLOOD COUNT 5.17 10^6/uL (4.35-5.55); RED CELL DISTRIBUTION WIDTH 13.4 % (11.5-14.0); SEGMENTED NEUTROPHILS % (AUTO) 86.2 % (42-78); TOTAL CELLS COUNTED % (AUTO) 100 %; WHITE BLOOD COUNT 13.7 10^3/uL (4.0-10.5)
[2017-10-27 06:13] LABS: ALANINE AMINOTRANSFERASE 113 U/L (21-72); ALKALINE PHOSPHATASE 70 U/L (38-126); ANION GAP 6 (5-19); ASPARTATE AMINO TRANSFERASE 59 U/L (17-59); BILIRUBIN,DIRECT 0.2 mg/dL (0.0-0.4); BILIRUBIN,TOTAL 0.6 mg/dL (0.2-1.3); BLOOD UREA NITROGEN 19 mg/dL (7-20); CALCIUM 9.3 mg/dL (8.4-10.2); CARBON DIOXIDE 37 mmol/L (22-30); CHLORIDE 96 mmol/L (98-107); GLUCOSE 84 mg/dL (75-110); POTASSIUM 4.4 mmol/L (3.6-5.0); SODIUM 138.9 mmol/L (137-145); TOTAL PROTEIN 6.8 g/dL (6.3-8.2)
--- NOTE | 2017-10-27 06:20 | ER Document Report ---
ED General - General Chief Complaint: Shortness Of Breath Stated Complaint: DIFFICULTY BREATHING Time Seen by Provider: 10/27/17 05:23 Mode of Arrival: Ambulatory Information source: Patient, Parent, [facility], [facility] Records Notes: 67-year-old male with COPD, hyperlipidemia, remote bladder cancer presents with complaint of shortness of breath. Patient states shortness of breath started 2 days prior to arrival, gradually worsened and is associated with a productive cough and wheezing. Patient is on oxygen at home usually 3.5 L and has been using it as directed although he came into the emergency department without his oxygen. Patient denies continued tobacco use. Patient had a recent hospital admission at the beginning of October 2017 for a COPD exacerbation. He denies any fever, chills, nausea, vomiting, chest pain. He does admit to some lower extremity edema and abdominal distention. Patient denies prior history of PE, DVT. He has had no recent surgery, history travel. TRAVEL OUTSIDE OF THE [place] IN LAST 30 DAYS: No - HPI Onset: Yesterday Onset/Duration: Gradual, Persistent, Worse Quality of pain: No pain Associated symptoms: Productive cough, Shortness of breath. denies: Chest pain , Chills, Fever, Nausea, Vomiting Exacerbated by: Movement, Coughing Relieved by: Denies Similar symptoms previously: Yes Recently seen / treated by doctor: Yes - Related Data Allergies/Adverse Reactions: No Known Allergies Allergy (Verified 10/27/17 12:03) Past Medical History - General Information source: Patient - Social History Smoking Status: Former Smoker Chew tobacco use (# tins/day): No Frequency of alcohol use: Occasional Drug Abuse: None Lives with: Spouse/Significant other Family History: CAD, DM, Hypertension Patient has suicidal ideation: No Patient has homicidal ideation: No - Past Medical History Cardiac Medical History: Reports: Hx Hypercholesterolemia Pulmonary Medical History: Reports: Hx Asthma, Hx Bronchitis, Hx COPD, Hx Pneumonia, Hx Sleep Apnea Denies: Hx Tuberculosis Renal/ Medical History: Reports: Hx Kidney Stones. Denies: Hx Peritoneal Dialysis GI Medical History: Reports: Hx Gastroesophageal Reflux Disease, Hx Hiatal Hernia, Hx Ulcer Musculoskeltal Medical History: Reports Hx Arthritis Psychiatric Medical History: Reports: Hx Attention Deficit Hyperactivity Disorder, Hx Bipolar Disorder Denies: Hx Depression Past Surgical History: Reports: Hx Appendectomy, Hx Cholecystectomy, Hx Genitourinary Surgery - removal of bladder cancer x2, Other - Surgery for bladder cancer. Denies: Hx Pacemaker - Immunizations Hx Diphtheria, Pertussis, Tetanus Vaccination: Yes Hx Pneumococcal Vaccination: 05/16/11 Review of Systems - Review of Systems Notes: REVIEW OF SYSTEMS: CONSTITUTIONAL : Denies fever, chills, or sweats. Denies recent illness. Denies weight loss, recent hospitalizations. EENT: Denies visual changes, eye pain. Denies nasal or sinus congestion or discharge. Denies sore throat, oral lesions, difficulty swallowing. CARDIOVASCULAR: Denies chest pain. Denies palpitations. RESPIRATORY: Denies hemoptysis GASTROINTESTINAL: Denies abdominal pain or distention. Denies nausea, vomiting , or diarrhea. Denies blood in vomitus, stools, or per rectum. Denies black, tarry stools. Denies constipation. GENITOURINARY: Denies difficulty urinating, painful urination, frequency, blood in urine, or vaginal discharge. MUSCULOSKELETAL: Denies back or neck pain or stiffness. Denies joint pain or swelling. SKIN: Denies rash, lesions or sores. HEMATOLOGIC : Denies easy bruising or bleeding. LYMPHATIC: Denies swollen glands. NEUROLOGICAL: Denies confusion or altered mental status. Denies passing out or loss of consciousness. Denies dizziness or lightheadedness. Denies headache. Denies weakness or paralysis. Denies problems difficulty with ambulation, slurred speech. Denies sensory loss, numbness, or tingling. Denies seizures. PSYCHIATRIC: Denies anxiety or stress. Denies depression, suicidal ideation, or homicidal ideation. Denies visual or auditory hallucinations. Physical Exam - Vital signs Vitals: Resp Pulse Ox 31 H 92 10/27/17 05:22 10/27/17 05:22 - Notes Notes: PHYSICAL EXAMINATION: GENERAL: On BiPAP. Mild distress. HEAD: Atraumatic, normocephalic. EYES: Pupils equal round and reactive to light, extraocular movements intact, sclera anicteric, conjunctiva are normal. ENT: Nares patent, oropharynx clear without exudates. Dry mucous membranes. NECK: Normal range of motion, supple without lymphadenopathy LUNGS: Breath sounds clear to auscultation bilaterally and equal. No wheezes rales or rhonchi. HEART: Regular rate and rhythm without murmurs ABDOMEN: Soft, nontender, nondistended abdomen. No guarding, no rebound. No masses appreciated. Musculoskeletal: Normal range of motion, non-pitting edema. No cyanosis. NEUROLOGICAL: Cranial nerves grossly intact. Normal speech, normal gait. Normal sensory, motor exams PSYCH: Normal mood, normal affect. SKIN: Warm, Dry, normal turgor, no rashes or lesions noted. Course - Re-evaluation Re-evalutation: Laboratory 10/27/17 10/27/17 10/27/17 05:32 05:32 05:32 WBC 13.7 H RBC 5.17 Hgb 15.6 Hct 47.0 MCV 91 MCH 30.1 MCHC 33.1 RDW 13.4 Plt Count 118 L Seg Neutrophils % 86.2 H Lymphocytes % 6.5 L Monocytes % 6.9 Eosinophils % 0.1 Basophils % 0.3 Absolute Neutrophils 11.8 H Absolute Lymphocytes 0.9 Absolute Monocytes 0.9 Absolute Eosinophils 0.0 Absolute Basophils 0.0 D-Dimer VBG pH VBG pCO2 VBG HCO3 VBG Base Excess Sodium 138.9 Potassium 4.4 Chloride 96 L Carbon Dioxide 37 H Anion Gap 6 BUN 19 Creatinine 0.80 Est GFR ( Amer) > 60 Est GFR (Non-Af Amer) > 60 Glucose 84 Calcium 9.3 Total Bilirubin 0.6 Direct Bilirubin 0.2 Neonat Total Bilirubin Not Reportable Neonat Direct Bilirubin Not Reportable Neonat Indirect Bili Not Reportable AST 59 ALT 113 H Alkaline Phosphatase 70 Troponin I < 0.012 Total Protein 6.8 Albumin 4.0 10/27/17 10/27/17 05:32 05:32 WBC RBC Hgb Hct MCV MCH MCHC RDW Plt Count Seg Neutrophils % Lymphocytes % Monocytes % Eosinophils % Basophils % Absolute Neutrophils Absolute Lymphocytes Absolute Monocytes Absolute Eosinophils Absolute Basophils D-Dimer 0.29 VBG pH 7.44 H VBG pCO2 54.2 VBG HCO3 35.9 H VBG Base Excess 9.5 Sodium Potassium Chloride Carbon Dioxide Anion Gap BUN Creatinine Est GFR ( Amer) Est GFR (Non-Af Amer) Glucose Calcium Total Bilirubin Direct Bilirubin Neonat Total Bilirubin Neonat Direct Bilirubin Neonat Indirect Bili AST ALT Alkaline Phosphatase Troponin I Total Protein Albumin Chest X-Ray 10/27/17 05:23 IMPRESSION: 1. No acute pulmonary process identified. No significant change. 10/27/17 06:30 67-year-old male with a history of COPD presents with complaint of worsening shortness of breath despite home oxygen. Patient reports a productive cough, wheezing. Upon arrival vitals are reviewed, patient is febrile, tachypneic, hypoxic. Upon my exam patient is on BiPAP, without accessory muscle use and is in mild distress. Patient has dry skin, dry mucous membranes, nonpitting lower extremity edema. EKG was obtained which showed the patient to be in sinus tachycardia at a rate of 117. Breath sounds are significantly diminished and with mild expiratory wheezing. Patient received Solu-Medrol, magnesium, breathing treatments, Tylenol. CBC shows mild leukocytosis likely secondary to recent steroid use. Patient has mild thrombocytopenia. VBG shows mild C02 retention. D-dimer within normal limits. BNP-100 . Lactate within normal limits. Cardiac enzymes within normal limits. Patient's recent sputum culture was positive for Moraxella. Patient completed a course of doxycycline. Did ask the hospitalist if she would like me to start antibiotics at this time. We will hold antibiotics until further recommendations. 10/27/17 06:32 10/27/17 07:42 Hospitalist contacted for admission. 10/27/17 07:43 Patient reevaluated, still resting comfortably on BiPAP. Admission accepted by the hospitalist. 10/27/17 07:52 - Vital Signs Vital signs: Temp Pulse Resp BP Pulse Ox 101 F H 120 H 16 113/66 94 10/27/17 05:24 10/27/17 05:24 10/27/17 14:01 10/27/17 14:01 10/27/17 14:01 - Laboratory Result Diagrams: 10/27/17 05:32 10/27/17 05:32 Laboratory results interpreted by me: 10/27/17 10/27/17 10/27/17 05:32 05:32 05:32 WBC 13.7 H Plt Count 118 L Seg Neutrophils % 86.2 H Lymphocytes % 6.5 L Absolute Neutrophils 11.8 H VBG pH 7.44 H VBG HCO3 35.9 H Chloride 96 L Carbon Dioxide 37 H ALT 113 H - Diagnostic Test Radiology reviewed: Image reviewed, Reports reviewed Discharge - Discharge Clinical Impression: COPD exacerbation, Wheezing, Respiratory distress, Acute respiratory failure with hypoxia Condition: Fair Disposition: ADMITTED INPATIENT Admitting Provider: Hospitalist Unit Admitted: [facility]
[2017-10-27] MEDS ORDERED: ONDANSETRON HCL INJ/PF 4 MG/2 ML SDV IV PRN (07:25)
[2017-10-27] MEDS ORDERED: ONDANSETRON 4 MG TAB.RAPDIS PO PRN (07:25)
[2017-10-27] MEDS ORDERED: ALBUTEROL SULFATE 0.083% NEB 2.5 MG/3 ML AMPUL NEB PRN (07:25)
--- NOTE | 2017-10-27 07:32 | EKG REPORT ---
SEVERITY:- ABNORMAL ECG - SINUS TACHYCARDIA RIGHT ATRIAL ABNORMALITY NONSPECIFIC INTRAVENTRICULAR CONDUCTION DELAY BORDERLINE INFERIOR Q WAVES BORDERLINE R WAVE PROGRESSION, ANTERIOR LEADS : Confirmed by: Phil De Leno MD 27-Oct-2017 07:31:40
[2017-10-27] MEDS ORDERED: METHYLPREDNISOLONE INJ 40 MG/1 ML SDV IV SCH (07:45)
[2017-10-27] MEDS ORDERED: ALBUTEROL SULFATE HFA (90 MCG/PUFF) 200 PUFF/8.5 GM MDI IH ONE (07:50)
[2017-10-27] MEDS ORDERED: LANSOPRAZOLE 15 MG TAB.RAP.DR PO ONE (08:30)
[2017-10-27] MEDS: IPRATROPIUM/ALBUTEROL 0.5-2.5 MG/3 ML AMPUL NEB SCH ×4 (08:54→20:43)
[2017-10-27] MEDS: BUSPIRONE HCL 10 MG TABLET PO SCH ×2 (09:46→21:37)
[2017-10-27] MEDS: ASPIRIN 81 MG TABLET, ENT COATED PO SCH (09:47)
[2017-10-27] MEDS: LACTOBACILLUS ACIDOPHILUS 250 MG TAB PO SCH ×2 (09:47→18:33)
[2017-10-27] MEDS: DOCUSATE SODIUM 100 MG CAPSULE PO SCH ×2 (09:47→18:34)
[2017-10-27] MEDS: GUAIFENESIN 600 MG TABLET.SA PO SCH ×2 (09:48→21:36)
[2017-10-27] MEDS: FLUTICASONE NASAL SPRAY 50 MCG/SPRY 120 SPRAY/16 GM NASL SCH (09:52)
[2017-10-27] MEDS: METHYLPREDNISOLONE INJ 40 MG/1 ML SDV IV SCH ×3 (09:52→21:35)
[2017-10-27] MEDS ORDERED: GUAIFENESIN 600 MG TABLET.SA PO SCH (10:00)
[2017-10-27] MEDS: ENOXAPARIN SODIUM INJ 40 MG/0.4 ML DISP.SYRIN SUBCUT SCH (10:00)
[2017-10-27] MEDS: BUDESONIDE/FORMOTEROL 160-4.5 MCG 60 PUFF/6 GM MDI IH SCH ×2 (10:00→21:38)
[2017-10-27] MEDS ORDERED: BISACODYL 5 MG TABEC PO ONE (10:02)
[2017-10-27 12:28] LABS: ARTERIAL BLOOD BASE EXCESS 6.2 mmol/L; ARTERIAL BLOOD H2CO3 1.63 mmol/L (1.05-1.35); ARTERIAL BLOOD HCO3 32.8 mmol/L (20-26); ARTERIAL BLOOD O2 SATURATION 95.8 % (94-98); ARTERIAL BLOOD PCO2 54.1 mmHg (35-45); ARTERIAL BLOOD PO2 80.8 mmHg (80-100); ARTERIAL BLOOD TOTAL CO2 34.5 mmol/L (23-27)
[2017-10-27 12:29] LABS: ARTERIAL BLOOD FIO2 30%
[2017-10-27] MEDS: GABAPENTIN 300 MG CAPSULE PO SCH ×2 (14:12→21:36)
[2017-10-27] MEDS: MONTELUKAST SODIUM 10 MG TABLET PO SCH (18:33)
[2017-10-27] MEDS: LACTULOSE SYRUP 20 GM/30 ML UDCUP PO SCH (18:34)
[2017-10-27] MEDS: SENNOSIDES/DOCUSATE 8.6-50 MG 1 EACH TABLET PO SCH (21:41)
[2017-10-28] MEDS: METHYLPREDNISOLONE INJ 40 MG/1 ML SDV IV SCH ×4 (03:34→20:15)
[2017-10-28] MEDS: GABAPENTIN 300 MG CAPSULE PO SCH ×3 (05:07→21:21)
[2017-10-28] MEDS: LANSOPRAZOLE 15 MG TAB.RAP.DR PO SCH (05:07)
[2017-10-28] MEDS: IPRATROPIUM/ALBUTEROL 0.5-2.5 MG/3 ML AMPUL NEB SCH ×4 (08:44→20:27)
[2017-10-28] MEDS: DOCUSATE SODIUM 100 MG CAPSULE PO SCH ×2 (09:02→17:19)
[2017-10-28] MEDS: LACTULOSE SYRUP 20 GM/30 ML UDCUP PO SCH ×2 (09:02→17:19)
[2017-10-28] MEDS: ENOXAPARIN SODIUM INJ 40 MG/0.4 ML DISP.SYRIN SUBCUT SCH (09:02)
[2017-10-28] MEDS: BUSPIRONE HCL 10 MG TABLET PO SCH ×2 (09:03→21:21)
[2017-10-28] MEDS: GUAIFENESIN 600 MG TABLET.SA PO SCH ×2 (09:03→21:21)
[2017-10-28] MEDS: LACTOBACILLUS ACIDOPHILUS 250 MG TAB PO SCH ×2 (09:03→17:19)
[2017-10-28] MEDS: FLUTICASONE NASAL SPRAY 50 MCG/SPRY 120 SPRAY/16 GM NASL SCH (09:04)
[2017-10-28] MEDS: BUDESONIDE/FORMOTEROL 160-4.5 MCG 60 PUFF/6 GM MDI IH SCH ×2 (09:04→21:24)
[2017-10-28] MEDS: ASPIRIN 81 MG TABLET, ENT COATED PO SCH (09:06)
--- NOTE | 2017-10-28 16:27 | PDOC PROGRESS REPORT ---
Subjective Progress Note for:: 10/28/17 Subjective:: Feels better. Still constipated. Reason For Visit: COPD EXACERBATION Physical Exam Vital Signs: Temp Pulse Resp BP Pulse Ox 98.2 F 89 20 123/66 94 10/28/17 16:00 10/28/17 16:04 10/28/17 16:04 10/28/17 16:00 10/28/17 16:04 Intake & Output 10/27/17 10/28/17 10/29/17 06:59 06:59 06:59 Intake Total 1431 Balance 1431 Weight 84.1 kg General appearance: PRESENT: no acute distress Head exam: PRESENT: normocephalic Eye exam: ABSENT: scleral icterus Mouth exam: PRESENT: moist Neck exam: ABSENT: tracheal deviation Respiratory exam: PRESENT: rhonchi, symmetrical, unlabored. ABSENT: wheezes Cardiovascular exam: PRESENT: RRR GI/Abdominal exam: PRESENT: distended, normal bowel sounds, soft. ABSENT: tenderness Rectal exam: PRESENT: deferred Gentrourinary exam: ABSENT: indwelling catheter Extremities exam: ABSENT: pedal edema Neurological exam: PRESENT: alert, awake, oriented to person, oriented to place , oriented to time, oriented to situation Psychiatric exam: PRESENT: appropriate affect Skin exam: ABSENT: petechiae Results Impressions: Chest X-Ray 10/27/17 05:23 IMPRESSION: 1. No acute pulmonary process identified. No significant change. Assessment & Plan - Diagnosis (1) Acute respiratory failure with hypoxia Is this a current diagnosis for this admission?: Yes Plan: Due to COPD exacerbation. (2) COPD exacerbation Is this a current diagnosis for this admission?: Yes Plan: Steroids, nebs, oxygen, BiPAP as need (3) Acute and chronic respiratory failure with hypercapnia Is this a current diagnosis for this admission?: Yes Plan: As above (4) DVT prophylaxis Is this a current diagnosis for this admission?: Yes Plan: Lovenox s/c (5) History of bladder cancer Is this a current diagnosis for this admission?: Yes Plan: Outpatient Urology follow up - Time Time Spent with patient: 25-34 minutes
[2017-10-28] MEDS: MONTELUKAST SODIUM 10 MG TABLET PO SCH (17:19)
[2017-10-28] MEDS: SENNOSIDES/DOCUSATE 8.6-50 MG 1 EACH TABLET PO SCH (21:23)
[2017-10-29] MEDS: METHYLPREDNISOLONE INJ 40 MG/1 ML SDV IV SCH ×4 (03:37→20:54)
[2017-10-29] MEDS: GABAPENTIN 300 MG CAPSULE PO SCH ×3 (05:16→21:00)
[2017-10-29] MEDS: LANSOPRAZOLE 15 MG TAB.RAP.DR PO SCH (05:16)
[2017-10-29] MEDS: ACETAMINOPHEN 325 MG TABLET PO PRN ×2 (08:10→20:53)
[2017-10-29] MEDS: IPRATROPIUM/ALBUTEROL 0.5-2.5 MG/3 ML AMPUL NEB SCH ×4 (08:23→20:22)
[2017-10-29] MEDS: LACTULOSE SYRUP 20 GM/30 ML UDCUP PO SCH ×2 (09:13→17:29)
[2017-10-29] MEDS: BUSPIRONE HCL 10 MG TABLET PO SCH ×2 (09:16→21:01)
[2017-10-29] MEDS: FLUTICASONE NASAL SPRAY 50 MCG/SPRY 120 SPRAY/16 GM NASL SCH (09:16)
[2017-10-29] MEDS: GUAIFENESIN 600 MG TABLET.SA PO SCH ×2 (09:16→21:00)
--- NOTE | 2017-10-29 09:45 | RADIOLOGY REPORT (SQ) ---
EXAM DESCRIPTION: CHEST 2 VIEWS COMPLETED DATE/TIME: 10/29/2017 8:48 am REASON FOR STUDY: Cough dyspnea COMPARISON: CT chest 04/25/2017 Chest films 04/24/2017, 10/16/2017, 10/27/2017 EXAM PARAMETERS: NUMBER OF VIEWS: two views TECHNIQUE: Digital Frontal and Lateral radiographic views of the chest acquired. RADIATION DOSE: NA LIMITATIONS: none FINDINGS: LUNGS AND PLEURA: Lungs are hyperinflated and hyperlucent from obstructive disease. No acute infiltrates. No pleural effusion. No pneumothorax. MEDIASTINUM AND HILAR STRUCTURES: No masses or contour abnormalities. HEART AND VASCULAR STRUCTURES: Heart normal size. No evidence for failure. BONES: Osteoporotic without acute findings HARDWARE: None in the chest. OTHER: No other significant finding. IMPRESSION: Obstructive lung disease. No focal infiltrates TECHNICAL DOCUMENTATION: JOB ID: [id number] [employer]- All Rights Reserved Reading location - IP/workstation name: [email or web address]
[2017-10-29] MEDS ORDERED: MAGNESIUM CITRATE 296 ML BOTTLE PO ONE (13:00)
--- NOTE | 2017-10-29 14:05 | PDOC PROGRESS REPORT ---
Subjective Progress Note for:: 10/29/17 Subjective:: MANI FLYNN is a 67 year old male with past medical history of Bladder cancer follows with Dr. Funes COPD Nicotine dependence Alcohol dependence Chronic hypoxic respiratory failure on 2.5 L nasal cannula oxygen at home. He was discharged last week after a hospital stay during which he was treated for acute bronchitis and COPD exacerbation. The patient presented back a few days later with increased shortness of breath and acute hypoxic respiratory failure requiring BiPAP. He is being treated for COPD exacerbation with IV steroids and [id number] nebs. He continues to be constipated. He reports having trouble coughing up his phlegm. Reason For Visit: COPD EXACERBATION Physical Exam Vital Signs: Temp Pulse Resp BP Pulse Ox 98.7 F 88 22 H 126/81 H 95 10/29/17 12:12 10/29/17 12:30 10/29/17 12:30 10/29/17 12:12 10/29/17 12:30 Intake & Output 10/28/17 10/29/17 10/30/17 06:59 06:59 06:59 Intake Total 1431 1478 417 Balance 1431 1478 417 Weight 84.1 kg 83.8 kg General appearance: PRESENT: no acute distress Head exam: PRESENT: normocephalic Eye exam: ABSENT: scleral icterus Ear exam: PRESENT: normal external ear exam Mouth exam: PRESENT: moist Respiratory exam: PRESENT: accessory muscle use, symmetrical, wheezes Cardiovascular exam: PRESENT: RRR GI/Abdominal exam: PRESENT: distended, normal bowel sounds, soft. ABSENT: tenderness Rectal exam: PRESENT: deferred Gentrourinary exam: ABSENT: indwelling catheter Extremities exam: ABSENT: pedal edema Neurological exam: PRESENT: alert, awake, oriented to person, oriented to place , oriented to time, oriented to situation Psychiatric exam: PRESENT: appropriate affect Skin exam: ABSENT: petechiae Results Impressions: Chest X-Ray 10/29/17 00:00 IMPRESSION: Obstructive lung disease. No focal infiltrates Assessment & Plan - Diagnosis (1) Acute respiratory failure with hypoxia Is this a current diagnosis for this admission?: Yes Plan: Due to COPD exacerbation. He will need a sleep study as an outpatient. (2) COPD exacerbation Is this a current diagnosis for this admission?: Yes Plan: Continue steroids, nebs, oxygen, BiPAP as need (3) Acute and chronic respiratory failure with hypercapnia Is this a current diagnosis for this admission?: Yes Plan: As above. Sleep study. (4) DVT prophylaxis Is this a current diagnosis for this admission?: Yes Plan: Lovenox s/c (5) History of bladder cancer Is this a current diagnosis for this admission?: Yes Plan: Outpatient Urology follow up (6) Constipation Is this a current diagnosis for this admission?: Yes Plan: Laxatives. - Time Time Spent with patient: 25-34 minutes
[2017-10-29] MEDS: LACTOBACILLUS ACIDOPHILUS 250 MG TAB PO SCH (17:29)
[2017-10-29] MEDS: MONTELUKAST SODIUM 10 MG TABLET PO SCH (17:29)
[2017-10-29] MEDS: SENNOSIDES/DOCUSATE 8.6-50 MG 1 EACH TABLET PO SCH (21:00)
[2017-10-30] MEDS: METHYLPREDNISOLONE INJ 40 MG/1 ML SDV IV SCH ×3 (03:20→14:12)
[2017-10-30] MEDS: BUDESONIDE/FORMOTEROL 160-4.5 MCG 60 PUFF/6 GM MDI IH SCH ×3 (03:22→21:14)
[2017-10-30] MEDS: LANSOPRAZOLE 15 MG TAB.RAP.DR PO SCH (06:31)
[2017-10-30] MEDS: GABAPENTIN 300 MG CAPSULE PO SCH ×3 (06:31→21:13)
[2017-10-30] MEDS: IPRATROPIUM/ALBUTEROL 0.5-2.5 MG/3 ML AMPUL NEB SCH ×4 (08:30→20:17)
[2017-10-30] MEDS: ENOXAPARIN SODIUM INJ 40 MG/0.4 ML DISP.SYRIN SUBCUT SCH (09:45)
[2017-10-30] MEDS: BUSPIRONE HCL 10 MG TABLET PO SCH ×2 (09:46→21:13)
[2017-10-30] MEDS: ASPIRIN 81 MG TABLET, ENT COATED PO SCH (09:47)
[2017-10-30] MEDS: LACTOBACILLUS ACIDOPHILUS 250 MG TAB PO SCH ×2 (09:47→17:38)
[2017-10-30] MEDS: GUAIFENESIN 600 MG TABLET.SA PO SCH ×2 (09:48→21:13)
[2017-10-30] MEDS: LACTULOSE SYRUP 20 GM/30 ML UDCUP PO SCH ×2 (09:48→17:37)
[2017-10-30] MEDS: FLUTICASONE NASAL SPRAY 50 MCG/SPRY 120 SPRAY/16 GM NASL SCH (09:49)
--- NOTE | 2017-10-30 14:19 | PDOC PROGRESS REPORT ---
Subjective Progress Note for:: 10/30/17 Subjective:: Doing better however continues to have cough. Biggest complain is inability to loosen phlegm despite mucinex use. O2 requirement at baseline. Has only been ambulating from bed/chair to bathroom. No other complaints. Denies fevers, chills, CP, abdominal pain, NV. No other complaints. Had complaint of constipation but good BM overnight. Reason For Visit: COPD EXACERBATION Physical Exam Vital Signs: Temp Pulse Resp BP Pulse Ox 99.3 F 89 22 H 130/76 H 94 10/30/17 11:39 10/30/17 11:56 10/30/17 11:56 10/30/17 11:39 10/30/17 11:56 Intake & Output 10/29/17 10/30/17 10/31/17 06:59 06:59 06:59 Intake Total 1478 2154 918 Balance 1478 2154 918 Weight 83.8 kg 82.5 kg General appearance: PRESENT: no acute distress, cooperative, well-developed, well-nourished Mouth exam: PRESENT: moist Teeth exam: PRESENT: poor dentation Respiratory exam: PRESENT: decreased breath sounds, unlabored, wheezes - scattered, other - On supplemental O2 Cardiovascular exam: PRESENT: +S1, +S2. ABSENT: tachycardia GI/Abdominal exam: PRESENT: soft. ABSENT: tenderness Neurological exam: PRESENT: alert, awake, CN II-XII grossly intact Psychiatric exam: PRESENT: appropriate affect Skin exam: PRESENT: intact, warm Results Impressions: Chest X-Ray 10/29/17 00:00 IMPRESSION: Obstructive lung disease. No focal infiltrates Assessment & Plan - Diagnosis (1) COPD exacerbation Is this a current diagnosis for this admission?: Yes Plan: Improving, O2 at baseline. Continues to complaint of cough with difficulty with mucus production - Transitioned fro IV steroids to PO prednisone 40mg * 2 additional days - Continue O2, goal sat>88% - BiPAP/CPAp at night (2) Acute and chronic respiratory failure with hypercapnia Is this a current diagnosis for this admission?: Yes Plan: Per above. Improved. - Likely has CHAITANYA and needs sleep study as an outpatient (3) Constipation Is this a current diagnosis for this admission?: Yes Plan: Improved, has large BM on 10/29. (4) History of bladder cancer Is this a current diagnosis for this admission?: Yes Plan: Follows with Dr. Funes - Time Time Spent with patient: Less than 15 minutes Anticipated discharge: Home, Home with Homehealth Within: within 24 hours
[2017-10-30] MEDS: ACETAMINOPHEN 325 MG TABLET PO PRN (15:57)
[2017-10-30] MEDS: MONTELUKAST SODIUM 10 MG TABLET PO SCH (17:38)
[2017-10-30] MEDS: ACETYLCYSTEINE 20% SOLN 800 MG/4 ML VIAL.NEB NEB SCH (20:17)
[2017-10-30] MEDS: SENNOSIDES/DOCUSATE 8.6-50 MG 1 EACH TABLET PO SCH (21:12)
[2017-10-31] MEDS: LANSOPRAZOLE 15 MG TAB.RAP.DR PO SCH (06:08)
[2017-10-31] MEDS: GABAPENTIN 300 MG CAPSULE PO SCH ×3 (06:08→22:25)
[2017-10-31] MEDS ORDERED: BUDESONIDE/FORMOTEROL 160-4.5 MCG 60 PUFF/6 GM MDI IH ONE (08:00)
[2017-10-31] MEDS: ACETYLCYSTEINE 20% SOLN 800 MG/4 ML VIAL.NEB NEB SCH ×2 (08:34→19:23)
[2017-10-31] MEDS: IPRATROPIUM/ALBUTEROL 0.5-2.5 MG/3 ML AMPUL NEB SCH ×4 (08:34→19:23)
[2017-10-31] MEDS ORDERED: PREDNISONE 20 MG TABLET PO SCH (10:00)
[2017-10-31] MEDS: ASPIRIN 81 MG TABLET, ENT COATED PO SCH (10:05)
[2017-10-31] MEDS: GUAIFENESIN 600 MG TABLET.SA PO SCH ×2 (10:06→22:25)
[2017-10-31] MEDS: BUSPIRONE HCL 10 MG TABLET PO SCH ×2 (10:06→22:24)
[2017-10-31] MEDS: LACTULOSE SYRUP 20 GM/30 ML UDCUP PO SCH ×2 (10:07→17:35)
[2017-10-31] MEDS: FLUTICASONE NASAL SPRAY 50 MCG/SPRY 120 SPRAY/16 GM NASL SCH (10:07)
[2017-10-31] MEDS: LACTOBACILLUS ACIDOPHILUS 250 MG TAB PO SCH ×2 (10:07→17:35)
[2017-10-31] MEDS: ENOXAPARIN SODIUM INJ 40 MG/0.4 ML DISP.SYRIN SUBCUT SCH (10:08)
[2017-10-31] MEDS ORDERED: AZITHROMYCIN INJ 500 MG VIAL IV ONE (10:18)
[2017-10-31] MEDS: METHYLPREDNISOLONE INJ 40 MG/1 ML SDV IV SCH ×2 (13:17→22:24)
[2017-10-31] MEDS: AZITHROMYCIN 500 MG in DEXTROSE 5%-WATER 250 ML IV SCH (13:17)
--- NOTE | 2017-10-31 13:53 | PDOC H&P ---
History of Present Illness Admission Date/PCP: 10/27/17 JOSSE MORTENSEN MD Patient complains of: dyspnea History of Present Illness: MANI FLYNN is a 67 year old male with past medical history of Bladder cancer follows with Dr. Funes COPD Nicotine dependence Alcohol dependence Chronic hypoxic respiratory failure on 2.5 L nasal cannula oxygen at home. Outpatient medications: BuSpar 15 mg twice a day Symbicort twice a day Aspirin 81 mg daily Albuterol nebulizer Gabapentin 300 mg every 8 hours Flonase nasal spray daily Mucinex 1200 mg twice a day Probiotic Singulair 10 mg daily next Prednisone taper Past Medical History Cardiac Medical History: Reports: Hyperlipidema Pulmonary Medical History: Reports: Asthma, Bronchitis, Chronic Obstructive Pulmonary Disease (COPD), Pneumonia, Sleep Apnea Denies: Tuberculosis GI Medical History: Reports: Gastroesophageal Reflux Disease, Hiatal Hernia Musculoskeltal Medical History: Reports: Arthritis Psychiatric Medical History: Reports: Attention Deficit Hyperactivity Disorder, Bipolar Disorder Denies: Depression Past Surgical History Past Surgical History: Reports: Appendectomy, Cholecystectomy, Other - Surgery for bladder cancer Social History Lives with: Spouse/Significant other Smoking Status: Former Smoker Frequency of Alcohol Use: Occasional Hx Recreational Drug Use: No Drugs: None Hx Prescription Drug Abuse: No - Advance Directive Resuscitation Status: Full Code Family History Family History: CAD, DM, Hypertension Parental Family History Reviewed: Yes Children Family History Reviewed: Yes Sibling(s) Family History Reviewed.: Yes Medication/Allergy Home Medications: Albuterol Sulfate [Albuterol Sulfate 2.5mg/3 mL] 3 ml IH RTQ4HP PRN 10/16/17 Albuterol Sulfate [Ventolin Hfa] 2 puff IH Q4HP PRN 10/16/17 Aspirin 81 mg PO DAILY 10/16/17 Budesonide/Formoterol Fumarate [Symbicort HFA 160-4.5 mcg Inhaler 6 gm] 2 puff IH Q12 10/16/17 Buspirone HCl [Buspar 15 mg Tablet] 15 mg PO Q12 10/16/17 Gabapentin [Neurontin 300 mg Capsule] 300 mg PO Q8 10/16/17 Fluticasone Propionate [Flonase Nasal [place] 50 Mcg/[place] 16 gm] 2 spray NASL DAILY spray.pump 10/24/17 Guaifenesin [Mucinex Sr 600 mg Tablet.sa] 1,200 mg PO Q12 tablet.sa 10/24/17 Lactobacillus Acidophilus [Bacid 250 mg Tablet] 500 mg PO BID tab 10/24/17 Montelukast Sodium [Singulair 10 mg Tablet] 10 mg PO QPM tablet 10/24/17 Omeprazole 20 mg PO DAILY 10 Days #10 tablet. 10/24/17 Prednisone 60 mg PO DAILY #26 tablet 10/24/17 Ascorbic Acid [Vitamin C] 1,000 mg PO DAILYP PRN 10/27/17 Allergies/Adverse Reactions: No Known Allergies Allergy (Verified 10/27/17 12:03) Review of Systems Constitutional: ABSENT: fever(s) Eyes: ABSENT: visual disturbances Ears: ABSENT: hearing changes Nose, Mouth, and Throat: ABSENT: sore throat Cardiovascular: ABSENT: chest pain Respiratory: PRESENT: cough, dyspnea, sputum Gastrointestinal: PRESENT: constipation. ABSENT: vomiting Neurological: ABSENT: focal weakness Psychiatric: ABSENT: hallucinations Endocrine: ABSENT: heat intolerance Hematologic/Lymphatic: ABSENT: easy bleeding Allergic/Immunologic: ABSENT: seasonal rhinorrhea Physical Exam Vital Signs: Temp Pulse Resp BP Pulse Ox 101 F H 120 H 21 H 119/69 94 10/27/17 05:24 10/27/17 05:24 10/27/17 07:01 10/27/17 07:01 10/27/17 07:01 Intake & Output 10/26/17 10/27/17 10/28/17 06:59 06:59 06:59 Weight 83.915 kg General appearance: PRESENT: mild distress Head exam: PRESENT: normocephalic Ear exam: PRESENT: normal external ear exam Mouth exam: PRESENT: moist Neck exam: ABSENT: tracheal deviation Respiratory exam: PRESENT: accessory muscle use, symmetrical, wheezes Cardiovascular exam: PRESENT: RRR GI/Abdominal exam: PRESENT: distended, normal bowel sounds, soft. ABSENT: tenderness Rectal exam: PRESENT: deferred Extremities exam: ABSENT: pedal edema Neurological exam: PRESENT: alert, awake, oriented to person, oriented to place , oriented to time, oriented to situation Psychiatric exam: PRESENT: appropriate affect Skin exam: ABSENT: skin tears Results Laboratory Results: 10/27/17 05:32 10/27/17 05:32 10/27/17 10/27/17 10/27/17 05:32 05:32 05:32 WBC 13.7 H RBC 5.17 Hgb 15.6 Hct 47.0 MCV 91 MCH 30.1 MCHC 33.1 RDW 13.4 Plt Count 118 L Seg Neutrophils % 86.2 H Lymphocytes % 6.5 L Monocytes % 6.9 Eosinophils % 0.1 Basophils % 0.3 Absolute Neutrophils 11.8 H Absolute Lymphocytes 0.9 Absolute Monocytes 0.9 Absolute Eosinophils 0.0 Absolute Basophils 0.0 VBG pH 7.44 H VBG pCO2 54.2 VBG HCO3 35.9 H VBG Base Excess 9.5 Sodium 138.9 Potassium 4.4 Chloride 96 L Carbon Dioxide 37 H Anion Gap 6 BUN 19 Creatinine 0.80 Est GFR ( Amer) > 60 Est GFR (Non-Af Amer) > 60 Glucose 84 Calcium 9.3 Total Bilirubin 0.6 AST 59 ALT 113 H Alkaline Phosphatase 70 Total Protein 6.8 Albumin 4.0 10/27/17 10/27/17 05:32 05:32 Troponin I < 0.012 NT-Pro-B Natriuret Pep 100 Impressions: Chest X-Ray 10/27/17 05:23 IMPRESSION: 1. No acute pulmonary process identified. No significant change. Assessment & Plan - Diagnosis (1) Acute respiratory failure with hypoxia Is this a current diagnosis for this admission?: Yes Plan: Due to COPD exacerbation. He will need a sleep study as an outpatient. (2) COPD exacerbation Is this a current diagnosis for this admission?: Yes Plan: Continue steroids, nebs, oxygen, BiPAP as need (3) Alcohol dependence Is this a current diagnosis for this admission?: Yes (4) Constipation Is this a current diagnosis for this admission?: Yes Plan: Laxatives. (5) DVT prophylaxis Is this a current diagnosis for this admission?: Yes Plan: Lovenox s/c (6) Depression Is this a current diagnosis for this admission?: Yes Plan: Continue outpatient meds (7) History of bladder cancer Is this a current diagnosis for this admission?: Yes Plan: Outpatient Urology follow up - Time Time Spent: 50 to 70 Minutes
[2017-10-31] MEDS: BUDESONIDE/FORMOTEROL 160-4.5 MCG 60 PUFF/6 GM MDI IH SCH (16:48)
[2017-10-31] MEDS: MONTELUKAST SODIUM 10 MG TABLET PO SCH (17:35)
[2017-10-31] MEDS: SENNOSIDES/DOCUSATE 8.6-50 MG 1 EACH TABLET PO SCH (22:25)
--- NOTE | 2017-10-31 23:44 | PDOC PROGRESS REPORT ---
Subjective Progress Note for:: 10/31/17 Subjective:: 67 year old male with past medical history of COPD, tobacco abuse, alcohol abuse , bladder cancer followed by Dr. Funes, chronic hypoxic respiratory failure on 2 -1/2 L nasal cannula home O2. Patient was discharged in the hospital last week after being treated for acute bronchitis and COPD exacerbation. States that he was home for several days and progressively felt short of breath and re- presented with noted acute hypoxic respiratory failure on his chronic condition requiring BiPAP support. Patient was started on IV steroids and aggressive neb treatments. Today I found him still short of breath. Adding azithromycin and increasing him to IV steroids. Patient was unable to complete full sentences without becoming short of breath. Reason For Visit: COPD EXACERBATION Physical Exam Vital Signs: Temp Pulse Resp BP Pulse Ox 97.8 F 110 H 23 H 125/86 H 98 10/31/17 19:27 10/31/17 19:27 10/31/17 19:27 10/31/17 19:27 10/31/17 19:27 Intake & Output 10/30/17 10/31/17 11/01/17 06:59 06:59 06:59 Intake Total 2154 3421 2819 Output Total 350 Balance 2154 3421 2469 Weight 82.5 kg 81.7 kg General appearance: PRESENT: no acute distress, cooperative Head exam: PRESENT: atraumatic, normocephalic Eye exam: PRESENT: EOMI, PERRLA Ear exam: PRESENT: normal external ear exam. ABSENT: drainage Mouth exam: PRESENT: moist, neck supple Throat exam: ABSENT: tonsillar erythema, tonsillar exudate Neck exam: PRESENT: full ROM. ABSENT: JVD, tenderness Respiratory exam: PRESENT: wheezes. ABSENT: rales, rhonchi Cardiovascular exam: PRESENT: RRR, +S1, +S2 Pulses: PRESENT: normal radial pulses, normal dorsalis pedis pul Vascular exam: PRESENT: normal capillary refill. ABSENT: pallor GI/Abdominal exam: PRESENT: normal bowel sounds, soft. ABSENT: rigid Musculoskeletal exam: PRESENT: full ROM. ABSENT: ambulatory Neurological exam: PRESENT: alert, oriented to person, oriented to place, oriented to time Psychiatric exam: ABSENT: agitated, anxious, flat affect Focused psych exam: ABSENT: catatonic, paranoid Skin exam: ABSENT: dry, pallor, rash Results Impressions: Chest X-Ray 10/29/17 00:00 IMPRESSION: Obstructive lung disease. No focal infiltrates Assessment & Plan - Diagnosis (1) Acute respiratory failure with hypoxia Is this a current diagnosis for this admission?: Yes Plan: Continue O2 supplemental support, increase patient's steroids and convert to IV. Add azithromycin. Continue aggressive DuoNeb therapy. Need to monitor in the inpatient setting. Continue evening support with BiPAP/CPAP. Agree the patient would benefit from a sleep study at discharge. (2) COPD exacerbation Is this a current diagnosis for this admission?: Yes Plan: Plan per problem above. (3) History of bladder cancer Is this a current diagnosis for this admission?: Yes Plan: Follow-up with Dr. Funes in the outpatient setting. - Time Time Spent with patient: 15-24 minutes - Inpatient Certification I certify that my determination is in accordance with my understanding of Medicare's requirements for reasonable and necessary INPATIENT services [42 CFR 412.3e].: Yes Medical Necessity: Need Close Monitoring Due to Risk of Patient Decompensation
[2017-11-01] MEDS: BUDESONIDE/FORMOTEROL 160-4.5 MCG 60 PUFF/6 GM MDI IH SCH ×2 (05:12→17:03)
[2017-11-01] MEDS: METHYLPREDNISOLONE INJ 40 MG/1 ML SDV IV SCH ×3 (05:15→23:04)
[2017-11-01] MEDS: LANSOPRAZOLE 15 MG TAB.RAP.DR PO SCH (05:15)
[2017-11-01] MEDS: GABAPENTIN 300 MG CAPSULE PO SCH ×3 (05:15→23:00)
[2017-11-01 06:13] LABS: HEMATOCRIT 44.8 % (37.9-51.0); HEMOGLOBIN 14.9 g/dL (13.5-17.0); MEAN CORPUSCULAR HEMOGLOBIN 30.8 pg (27.0-33.4); MEAN CORPUSCULAR HGB CONC 33.3 g/dL (32.0-36.0); MEAN CORPUSCULAR VOLUME 93 fl (80-97); PLATELET COUNT 162 10^3/uL (150-450); RED BLOOD COUNT 4.84 10^6/uL (4.35-5.55); RED CELL DISTRIBUTION WIDTH 13.3 % (11.5-14.0); WHITE BLOOD COUNT 7.1 10^3/uL (4.0-10.5)
[2017-11-01 06:39] LABS: ALBUMIN 3.3 g/dL (3.5-5.0); BLOOD UREA NITROGEN 22 mg/dL (7-20); CALCIUM 9.3 mg/dL (8.4-10.2); CHLORIDE 92 mmol/L (98-107); GLUCOSE 131 mg/dL (75-110); PHOSPHORUS 4.5 mg/dL (2.5-4.5); POTASSIUM 5.4 mmol/L (3.6-5.0); SODIUM 142.3 mmol/L (137-145)
[2017-11-01 06:50] LABS: ANION GAP 7 (5-19)
[2017-11-01 06:52] LABS: CARBON DIOXIDE 43 mmol/L (22-30)
[2017-11-01] MEDS: ACETYLCYSTEINE 20% SOLN 800 MG/4 ML VIAL.NEB NEB SCH ×2 (07:46→20:18)
[2017-11-01] MEDS: IPRATROPIUM/ALBUTEROL 0.5-2.5 MG/3 ML AMPUL NEB SCH ×4 (07:46→20:17)
[2017-11-01] MEDS: ENOXAPARIN SODIUM INJ 40 MG/0.4 ML DISP.SYRIN SUBCUT SCH (09:23)
[2017-11-01] MEDS: LACTULOSE SYRUP 20 GM/30 ML UDCUP PO SCH ×2 (09:24→17:02)
[2017-11-01] MEDS: LACTOBACILLUS ACIDOPHILUS 250 MG TAB PO SCH ×2 (09:24→17:01)
[2017-11-01] MEDS: GUAIFENESIN 600 MG TABLET.SA PO SCH ×2 (09:24→22:58)
[2017-11-01] MEDS: BUSPIRONE HCL 10 MG TABLET PO SCH ×2 (09:24→22:58)
[2017-11-01] MEDS: FLUTICASONE NASAL SPRAY 50 MCG/SPRY 120 SPRAY/16 GM NASL SCH (09:25)
[2017-11-01] MEDS: ASPIRIN 81 MG TABLET, ENT COATED PO SCH (09:25)
[2017-11-01] MEDS: AZITHROMYCIN 500 MG in DEXTROSE 5%-WATER 250 ML IV SCH (12:10)
[2017-11-01] MEDS ORDERED: BISACODYL 10 MG SUPP.RECT PR ONE (15:45)
[2017-11-01] MEDS: FLUOXETINE HCL 20 MG CAPSULE PO SCH (17:02)
[2017-11-01] MEDS: MONTELUKAST SODIUM 10 MG TABLET PO SCH (17:02)
--- NOTE | 2017-11-01 22:42 | PDOC PROGRESS REPORT ---
Subjective Progress Note for:: 11/01/17 Subjective:: 67 year old male with past medical history of COPD, tobacco abuse, alcohol abuse , bladder cancer followed by Dr. Funes, chronic hypoxic respiratory failure on 2 -1/2 L nasal cannula home O2. Patient was discharged in the hospital last week after being treated for acute bronchitis and COPD exacerbation. States that he was home for several days and progressively felt short of breath and re- presented with noted acute hypoxic respiratory failure on his chronic condition requiring BiPAP support. Patient was started on IV steroids and aggressive neb treatments. Today patient stated that he felt somewhat improved. Continues to have significant wheezing on exam. Continue aggressive pulmonary medications. Patient complains of depression, will start Prozac. He has a distended abdomen and some constipation. Reason For Visit: COPD EXACERBATION Physical Exam Vital Signs: Temp Pulse Resp BP Pulse Ox 98.2 F 97 20 113/92 H 94 11/01/17 19:33 11/01/17 20:20 11/01/17 20:20 11/01/17 19:33 11/01/17 19:33 Intake & Output 10/31/17 11/01/17 11/02/17 06:59 06:59 06:59 Intake Total 3421 2974 1798 Output Total 350 Balance 3421 2624 1798 Weight 81.7 kg 82.6 kg General appearance: PRESENT: no acute distress, cooperative Eye exam: PRESENT: EOMI, PERRLA Ear exam: PRESENT: normal external ear exam. ABSENT: drainage Mouth exam: PRESENT: moist, neck supple Throat exam: ABSENT: tonsillar erythema, tonsillar exudate Neck exam: ABSENT: tenderness, thyromegaly Respiratory exam: PRESENT: rhonchi, wheezes. ABSENT: crackles, rales Cardiovascular exam: PRESENT: RRR, +S1, +S2 Pulses: PRESENT: normal radial pulses, normal dorsalis pedis pul Vascular exam: PRESENT: normal capillary refill. ABSENT: pallor GI/Abdominal exam: PRESENT: normal bowel sounds, soft. ABSENT: rigid Extremities exam: ABSENT: joint swelling, pedal edema Musculoskeletal exam: PRESENT: full ROM. ABSENT: deformity Neurological exam: PRESENT: alert, awake, oriented to person, oriented to place , oriented to time, oriented to situation Psychiatric exam: ABSENT: anxious, flat affect Focused psych exam: ABSENT: delusional, paranoid Skin exam: PRESENT: normal color. ABSENT: mottled Results Laboratory Results: 11/01/17 05:39 11/01/17 05:39 11/01/17 11/01/17 05:39 05:39 WBC 7.1 RBC 4.84 Hgb 14.9 Hct 44.8 MCV 93 MCH 30.8 MCHC 33.3 RDW 13.3 Plt Count 162 Sodium 142.3 Potassium 5.4 H Chloride 92 L Carbon Dioxide 43 H* Anion Gap 7 BUN 22 H Creatinine 0.67 Est GFR ( Amer) > 60 Est GFR (Non-Af Amer) > 60 Glucose 131 H Calcium 9.3 Phosphorus 4.5 Albumin 3.3 L Impressions: Chest X-Ray 10/29/17 00:00 IMPRESSION: Obstructive lung disease. No focal infiltrates Assessment & Plan - Diagnosis (1) Acute respiratory failure with hypoxia Is this a current diagnosis for this admission?: Yes Plan: This is acute on chronic respiratory failure iwth hypoxia. Continue supportive O2. Continue aggressive pulmonary medicines and supportive care. submitted sputum for culture today, continue Azithromycin continue symbicort, duonebs, and solumedrol. (2) COPD exacerbation Is this a current diagnosis for this admission?: Yes Plan: gradual improvement on aggressive therapy. continue aggressive pulmonary therapy. give treatment for constipation, since his belly is limiting his diaphragm movement. (3) History of bladder cancer Is this a current diagnosis for this admission?: Yes Plan: can resume OP follow up after d/c (4) Depression Is this a current diagnosis for this admission?: Yes Plan: starting prozac. (5) Constipation Is this a current diagnosis for this admission?: Yes Plan: adding bisacodyl supp to bowel regiment. (6) Hyperkalemia Is this a current diagnosis for this admission?: Yes Plan: monitor for improvement. - Time Time Spent with patient: 15-24 minutes - Inpatient Certification I certify that my determination is in accordance with my understanding of Medicare's requirements for reasonable and necessary INPATIENT services [42 CFR 412.3e].: Yes Medical Necessity: Need Close Monitoring Due to Risk of Patient Decompensation
[2017-11-01] MEDS: SENNOSIDES/DOCUSATE 8.6-50 MG 1 EACH TABLET PO SCH (22:57)
[2017-11-02] MEDS: BUDESONIDE/FORMOTEROL 160-4.5 MCG 60 PUFF/6 GM MDI IH SCH ×2 (05:36→17:37)
[2017-11-02] MEDS: LANSOPRAZOLE 15 MG TAB.RAP.DR PO SCH (05:36)
[2017-11-02] MEDS: METHYLPREDNISOLONE INJ 40 MG/1 ML SDV IV SCH ×3 (05:37→22:16)
[2017-11-02] MEDS: GABAPENTIN 300 MG CAPSULE PO SCH ×3 (05:37→22:15)
[2017-11-02 06:08] LABS: HEMATOCRIT 44.4 % (37.9-51.0); HEMOGLOBIN 14.4 g/dL (13.5-17.0); MEAN CORPUSCULAR HEMOGLOBIN 29.7 pg (27.0-33.4); MEAN CORPUSCULAR HGB CONC 32.3 g/dL (32.0-36.0); MEAN CORPUSCULAR VOLUME 92 fl (80-97); PLATELET COUNT 177 10^3/uL (150-450); RED BLOOD COUNT 4.83 10^6/uL (4.35-5.55); RED CELL DISTRIBUTION WIDTH 13.3 % (11.5-14.0); WHITE BLOOD COUNT 11.1 10^3/uL (4.0-10.5)
[2017-11-02 06:23] LABS: ALBUMIN 3.2 g/dL (3.5-5.0); BLOOD UREA NITROGEN 19 mg/dL (7-20); CALCIUM 9.3 mg/dL (8.4-10.2); CHLORIDE 93 mmol/L (98-107); GLUCOSE 136 mg/dL (75-110); PHOSPHORUS 4.5 mg/dL (2.5-4.5); SODIUM 140.7 mmol/L (137-145)
[2017-11-02 06:31] LABS: ANION GAP 6 (5-19)
[2017-11-02 06:34] LABS: CARBON DIOXIDE 42 mmol/L (22-30)
[2017-11-02] MEDS: ACETYLCYSTEINE 20% SOLN 800 MG/4 ML VIAL.NEB NEB SCH ×2 (07:49→20:23)
[2017-11-02] MEDS: IPRATROPIUM/ALBUTEROL 0.5-2.5 MG/3 ML AMPUL NEB SCH ×4 (07:49→20:23)
[2017-11-02] MEDS: ENOXAPARIN SODIUM INJ 40 MG/0.4 ML DISP.SYRIN SUBCUT SCH (09:26)
[2017-11-02] MEDS: LACTULOSE SYRUP 20 GM/30 ML UDCUP PO SCH ×2 (09:26→17:36)
[2017-11-02] MEDS: FLUTICASONE NASAL SPRAY 50 MCG/SPRY 120 SPRAY/16 GM NASL SCH (09:26)
[2017-11-02] MEDS: LACTOBACILLUS ACIDOPHILUS 250 MG TAB PO SCH ×2 (09:27→17:36)
[2017-11-02] MEDS: BUSPIRONE HCL 10 MG TABLET PO SCH ×2 (09:27→22:14)
[2017-11-02] MEDS: GUAIFENESIN 600 MG TABLET.SA PO SCH ×2 (09:27→22:16)
[2017-11-02] MEDS: ASPIRIN 81 MG TABLET, ENT COATED PO SCH (09:27)
[2017-11-02] MEDS: AZITHROMYCIN 500 MG in DEXTROSE 5%-WATER 250 ML IV SCH (14:04)
[2017-11-02] MEDS: MONTELUKAST SODIUM 10 MG TABLET PO SCH (17:37)
[2017-11-02] MEDS: FLUOXETINE HCL 20 MG CAPSULE PO SCH (17:37)
--- NOTE | 2017-11-02 19:25 | PDOC PROGRESS REPORT ---
Subjective Progress Note for:: 11/02/17 Subjective:: Breathing slowly improving. No chest pain or palpitations, no nausea vomiting, no fever or chills. Reason For Visit: COPD EXACERBATION Physical Exam Vital Signs: Temp Pulse Resp BP Pulse Ox 97.7 F 94 28 H 119/78 95 11/02/17 15:24 11/02/17 15:24 11/02/17 15:24 11/02/17 15:24 11/02/17 15:24 Intake & Output 11/01/17 11/02/17 11/03/17 06:59 06:59 06:59 Intake Total 2974 2403 1261 Output Total 350 Balance 2624 2403 1261 Weight 82.6 kg 82.9 kg GEN: NAD, well-developed, well-nourished CV: RRR, NL S1S2 LUNGS: Occasional wheezing bilaterally ABDOMEN Soft, NT, +BS EXTERMITIES: No e/c/c NEURO: Alert, oriented 3, no acute weakness Results Laboratory Results: 11/02/17 05:47 11/02/17 05:47 11/02/17 11/02/17 05:47 05:47 WBC 11.1 H RBC 4.83 Hgb 14.4 Hct 44.4 MCV 92 MCH 29.7 MCHC 32.3 RDW 13.3 Plt Count 177 Sodium 140.7 Potassium 5.0 Chloride 93 L Carbon Dioxide 42 H* Anion Gap 6 BUN 19 Creatinine 0.69 Est GFR ( Amer) > 60 Est GFR (Non-Af Amer) > 60 Glucose 136 H Calcium 9.3 Phosphorus 4.5 Albumin 3.2 L Impressions: Chest X-Ray 10/29/17 00:00 IMPRESSION: Obstructive lung disease. No focal infiltrates Assessment & Plan - Plan Summary Plan Summary: (1) Acute respiratory failure with hypoxia Is this a current diagnosis for this admission?: Yes Plan: acute on chronic [facility] hypoxia. Continue supportive O2, nebs, Azithromycin,symbicort, Titrate down solumedrol. (2) COPD exacerbation Is this a current diagnosis for this admission?: Yes Plan: gradual improvement on aggressive therapy. Continue management as in #1. (3) History of bladder cancer Is this a current diagnosis for this admission?: Yes Plan: can resume OP follow up after d/c (4) Depression Is this a current diagnosis for this admission?: Yes Plan: Continue Prozac. (5) Constipation Is this a current diagnosis for this admission?: Yes Plan: Continue bowel regimen. (6) Hyperkalemia Is this a current diagnosis for this admission?: Yes Plan: Continue to monitor for improvement.
[2017-11-02] MEDS: SENNOSIDES/DOCUSATE 8.6-50 MG 1 EACH TABLET PO SCH (22:15)
[2017-11-03] MEDS: BUDESONIDE/FORMOTEROL 160-4.5 MCG 60 PUFF/6 GM MDI IH SCH ×2 (05:42→17:10)
[2017-11-03] MEDS: GABAPENTIN 300 MG CAPSULE PO SCH ×3 (05:43→22:06)
[2017-11-03] MEDS: LANSOPRAZOLE 15 MG TAB.RAP.DR PO SCH (05:43)
[2017-11-03 06:25] LABS: ABSOLUTE LYMPHOCYTES (AUTO) 1.1 10^3/uL (0.5-4.7); ABSOLUTE MONOCYTES (AUTO) 0.4 10^3/uL (0.1-1.4); ABSOLUTE NEUT (AUTO) 7.1 10^3/uL (1.7-8.2); BASOPHILS % (AUTO) 0.5 % (0-2); EOSINOPHILS % (AUTO) 0.1 % (0-6); HEMATOCRIT 41.4 % (37.9-51.0); HEMOGLOBIN 13.7 g/dL (13.5-17.0); LYMPHOCYTES % (AUTO) 12.4 % (13-45); MEAN CORPUSCULAR HEMOGLOBIN 30.5 pg (27.0-33.4); MEAN CORPUSCULAR VOLUME 92 fl (80-97); MONOCYTES % (AUTO) 4.5 % (3-13); PLATELET COUNT 182 10^3/uL (150-450); RED BLOOD COUNT 4.49 10^6/uL (4.35-5.55); RED CELL DISTRIBUTION WIDTH 13.4 % (11.5-14.0); SEGMENTED NEUTROPHILS % (AUTO) 82.5 % (42-78); TOTAL CELLS COUNTED % (AUTO) 100 %; WHITE BLOOD COUNT 8.6 10^3/uL (4.0-10.5)
[2017-11-03 06:38] LABS: BLOOD UREA NITROGEN 24 mg/dL (7-20); CALCIUM 9.2 mg/dL (8.4-10.2); CHLORIDE 96 mmol/L (98-107); GLUCOSE 111 mg/dL (75-110); POTASSIUM 5.6 mmol/L (3.6-5.0); SODIUM 141.9 mmol/L (137-145)
[2017-11-03 06:39] LABS: ANION GAP 6 (5-19)
[2017-11-03 07:06] LABS: CARBON DIOXIDE 40 mmol/L (22-30)
[2017-11-03] MEDS: ACETYLCYSTEINE 20% SOLN 800 MG/4 ML VIAL.NEB NEB SCH ×2 (08:35→20:11)
[2017-11-03] MEDS: IPRATROPIUM/ALBUTEROL 0.5-2.5 MG/3 ML AMPUL NEB SCH ×4 (08:35→20:11)
[2017-11-03] MEDS: LACTULOSE SYRUP 20 GM/30 ML UDCUP PO SCH ×2 (09:21→17:10)
[2017-11-03] MEDS: GUAIFENESIN 600 MG TABLET.SA PO SCH ×2 (09:21→22:06)
[2017-11-03] MEDS: BUSPIRONE HCL 10 MG TABLET PO SCH ×2 (09:21→22:05)
[2017-11-03] MEDS: ENOXAPARIN SODIUM INJ 40 MG/0.4 ML DISP.SYRIN SUBCUT SCH (09:21)
[2017-11-03] MEDS: ASPIRIN 81 MG TABLET, ENT COATED PO SCH (09:22)
[2017-11-03] MEDS: LACTOBACILLUS ACIDOPHILUS 250 MG TAB PO SCH ×2 (09:22→17:10)
[2017-11-03] MEDS: METHYLPREDNISOLONE INJ 40 MG/1 ML SDV IV SCH (09:22)
[2017-11-03] MEDS: FLUTICASONE NASAL SPRAY 50 MCG/SPRY 120 SPRAY/16 GM NASL SCH (09:23)
[2017-11-03] MEDS: AZITHROMYCIN 500 MG in DEXTROSE 5%-WATER 250 ML IV SCH (11:29)
[2017-11-03] MEDS: FLUOXETINE HCL 20 MG CAPSULE PO SCH (17:10)
[2017-11-03] MEDS: MONTELUKAST SODIUM 10 MG TABLET PO SCH (17:10)
--- NOTE | 2017-11-03 19:28 | PDOC PROGRESS REPORT ---
Subjective Progress Note for:: 11/03/17 Subjective:: Breathing continues to slowly improve. No chest pain or palpitations, no nausea vomiting, no fever or chills. Reason For Visit: COPD EXACERBATION Physical Exam Vital Signs: Temp Pulse Resp BP Pulse Ox 98.5 F 104 H 24 H 122/79 94 11/03/17 15:46 11/03/17 16:37 11/03/17 16:37 11/03/17 15:46 11/03/17 16:37 Intake & Output 11/02/17 11/03/17 11/04/17 06:59 06:59 06:59 Intake Total 2403 1746 1165 Balance 2403 1746 1165 Weight 82.9 kg 82.8 kg GEN: NAD, well-developed, well-nourished CV: RRR, NL S1S2 LUNGS: Few expiratory wheezing bilaterally ABDOMEN Soft, NT, +BS EXTERMITIES: No e/c/c NEURO: Alert, oriented 3, no acute weakness Results Laboratory Results: 11/03/17 05:40 11/03/17 05:40 11/03/17 11/03/17 05:40 05:40 WBC 8.6 RBC 4.49 Hgb 13.7 Hct 41.4 MCV 92 MCH 30.5 MCHC 33.0 RDW 13.4 Plt Count 182 Seg Neutrophils % 82.5 H Lymphocytes % 12.4 L Monocytes % 4.5 Eosinophils % 0.1 Basophils % 0.5 Absolute Neutrophils 7.1 Absolute Lymphocytes 1.1 Absolute Monocytes 0.4 Absolute Eosinophils 0.0 Absolute Basophils 0.0 Sodium 141.9 Potassium 5.6 H Chloride 96 L Carbon Dioxide 40 H* Anion Gap 6 BUN 24 H Creatinine 0.65 Est GFR ( Amer) > 60 Est GFR (Non-Af Amer) > 60 Glucose 111 H Calcium 9.2 11/01/17 07:34 Sputum Gram Stain - Final 11/01/17 07:34 Sputum Sputum Culture - Final Haemophilus Influenzae C.albicans/C.dubliniensis Reduced Normal Fatoumata Impressions: Chest X-Ray 10/29/17 00:00 IMPRESSION: Obstructive lung disease. No focal infiltrates Assessment & Plan - Plan Summary Plan Summary: (1) Acute respiratory failure with hypoxia Is this a current diagnosis for this admission?: Yes Plan: acute on chronic respiratory failure wth hypoxia. Continue supportive O2, nebs, Azithromycin, symbicort, Trial of discontinuing solumedrol. Start prednisone 40 mg p.o. twice daily Possible discharge home in a.m. if stable. (2) COPD exacerbation Is this a current diagnosis for this admission?: Yes Plan: gradual improvement on aggressive therapy. Continue management as in #1. (3) History of bladder cancer Is this a current diagnosis for this admission?: Yes Plan: can resume OP follow up after d/c (4) Depression Is this a current diagnosis for this admission?: Yes Plan: Continue Prozac. (5) Constipation Is this a current diagnosis for this admission?: Yes Plan: Continue bowel regimen.
[2017-11-03] MEDS ORDERED: PREDNISONE 20 MG TABLET PO ONE (20:30)
[2017-11-03] MEDS: SENNOSIDES/DOCUSATE 8.6-50 MG 1 EACH TABLET PO SCH (22:07)
[2017-11-04] MEDS: LANSOPRAZOLE 15 MG TAB.RAP.DR PO SCH (05:37)
[2017-11-04] MEDS: GABAPENTIN 300 MG CAPSULE PO SCH ×2 (05:37→13:11)
[2017-11-04] MEDS: BUDESONIDE/FORMOTEROL 160-4.5 MCG 60 PUFF/6 GM MDI IH SCH (05:38)
[2017-11-04 06:09] LABS: BLOOD UREA NITROGEN 22 mg/dL (7-20); CALCIUM 9.2 mg/dL (8.4-10.2); CHLORIDE 94 mmol/L (98-107); GLUCOSE 143 mg/dL (75-110); POTASSIUM 5.3 mmol/L (3.6-5.0); SODIUM 140.9 mmol/L (137-145)
[2017-11-04 06:15] LABS: ANION GAP 7 (5-19)
[2017-11-04 06:19] LABS: CARBON DIOXIDE 40 mmol/L (22-30)
[2017-11-04] MEDS: IPRATROPIUM/ALBUTEROL 0.5-2.5 MG/3 ML AMPUL NEB SCH ×2 (08:04→12:05)
[2017-11-04] MEDS: ACETYLCYSTEINE 20% SOLN 800 MG/4 ML VIAL.NEB NEB SCH (08:04)
[2017-11-04] MEDS ORDERED: PREDNISONE 20 MG TABLET PO SCH (10:00)
[2017-11-04] MEDS: ENOXAPARIN SODIUM INJ 40 MG/0.4 ML DISP.SYRIN SUBCUT SCH (10:01)
[2017-11-04] MEDS: FLUTICASONE NASAL SPRAY 50 MCG/SPRY 120 SPRAY/16 GM NASL SCH (10:02)
[2017-11-04] MEDS: BUSPIRONE HCL 10 MG TABLET PO SCH (10:02)
[2017-11-04] MEDS: ASPIRIN 81 MG TABLET, ENT COATED PO SCH (10:02)
[2017-11-04] MEDS: LACTOBACILLUS ACIDOPHILUS 250 MG TAB PO SCH (10:03)
[2017-11-04] MEDS: GUAIFENESIN 600 MG TABLET.SA PO SCH (10:04)
[2017-11-04] MEDS: LACTULOSE SYRUP 20 GM/30 ML UDCUP PO SCH (10:04)
[2017-11-04] MEDS ORDERED: AZITHROMYCIN 250 MG TABLET PO SCH (12:00)
--- NOTE | 2017-11-04 13:41 | PDOC DISCHARGE SUMMARY ---
General - Admit/Disc Date/PCP Admission Date/Primary Care Provider: 10/27/17 07:44 JOSSE MORTENSEN MD Discharge Date: 11/04/17 - Additional Information Resuscitation Status: Full Code Discharge Diet: Regular Discharge Activity: Activity As Tolerated, Balance Activity w/Rest Prescriptions: Azithromycin [Zithromax 250 mg Tablet] 500 mg PO NOON #3 tablet Montelukast Sodium [Singulair 10 mg Tablet] 10 mg PO QPM #30 tablet Prednisone [Deltasone 20 mg Tablet] 20 mg PO ASDIR PRN #30 tablet PRN Reason: Home Medications: Albuterol Sulfate [Albuterol Sulfate 2.5mg/3 mL] 3 ml IH RTQ4HP PRN 10/16/17 Albuterol Sulfate [Ventolin Hfa] 2 puff IH Q4HP PRN 10/16/17 Aspirin 81 mg PO DAILY 10/16/17 Budesonide/Formoterol Fumarate [Symbicort HFA 160-4.5 mcg Inhaler 6 gm] 2 puff IH Q12 10/16/17 Buspirone HCl [Buspar 15 mg Tablet] 15 mg PO Q12 10/16/17 Gabapentin [Neurontin 300 mg Capsule] 300 mg PO Q8 10/16/17 Fluticasone Propionate [Flonase Nasal [place] 50 Mcg/[place] 16 gm] 2 spray NASL DAILY spray.pump 10/24/17 Guaifenesin [Mucinex Sr 600 mg Tablet.sa] 1,200 mg PO Q12 tablet.sa 10/24/17 Lactobacillus Acidophilus [Bacid 250 mg Tablet] 500 mg PO BID tab 10/24/17 Omeprazole 20 mg PO DAILY 10 Days #10 tablet. 10/24/17 Ascorbic Acid [Vitamin C] 1,000 mg PO DAILYP PRN 10/27/17 Azithromycin [Zithromax 250 mg Tablet] 500 mg PO NOON #3 tablet 11/04/17 Montelukast Sodium [Singulair 10 mg Tablet] 10 mg PO QPM #30 tablet 11/04/17 Prednisone [Deltasone 20 mg Tablet] 20 mg PO ASDIR PRN #30 tablet 11/04/17 History of Present Illness Patient complains of: Shortness of breath and dyspnea. History of Present Illness: MANI FLYNN is a 67 year old male with COPD, hyperlipidemia, remote bladder cancer presents with complaint of shortness of breath. Patient states shortness of breath started 2 days prior to arrival, gradually worsened and is associated with a productive cough and wheezing. Patient is on oxygen at home usually 3.5 L and has been using it as directed although he came into the emergency department without his oxygen. Patient denies continued tobacco use. Patient had a recent hospital admission at the beginning of October 2017 for a COPD exacerbation. He denies any fever, chills, nausea, vomiting, chest pain. He does admit to some lower extremity edema and abdominal distention. Patient denies prior history of PE, DVT. He has had no recent surgery, history travel. Sleep study Patient was admitted to [facility] on telemetry. He was started on IV broad-spectrum antibiotics, nebulizer treatments and IV steroids. He was started on BiPAP at night. He was noted to have hypercapnia. Patient will need to follow-up with his primary care provider for outpatient sleep study sleep study qualify for CPAP. He continued on oral prednisone taper and oral antibiotics. Home health nursing was ordered as well. Patient's spouse continues to smoke. Patient states he has not smoked in the last month. We reiterated with him the need to stay tobacco free. Physical Exam Vital Signs: Temp Pulse Resp BP Pulse Ox 98.2 F 95 22 H 119/71 94 11/04/17 07:27 11/04/17 08:04 11/04/17 08:04 11/04/17 07:27 11/04/17 08:04 Intake & Output 11/03/17 11/04/17 11/05/17 06:59 06:59 06:59 Intake Total 1746 1870 Balance 1746 1870 Weight 82.8 kg 82.8 kg General appearance: PRESENT: no acute distress, well-developed, well-nourished Head exam: PRESENT: atraumatic, normocephalic Eye exam: PRESENT: conjunctiva pink, EOMI, PERRLA. ABSENT: scleral icterus Ear exam: PRESENT: normal external ear exam Mouth exam: PRESENT: moist, tongue midline Neck exam: ABSENT: carotid bruit, JVD, lymphadenopathy, thyromegaly Respiratory exam: PRESENT: rhonchi, symmetrical, unlabored Cardiovascular exam: PRESENT: RRR. ABSENT: diastolic murmur, rubs, systolic murmur Pulses: PRESENT: normal dorsalis pedis pul Vascular exam: PRESENT: normal capillary refill GI/Abdominal exam: PRESENT: normal bowel sounds, soft. ABSENT: distended, guarding, mass, organolmegaly, rebound, tenderness Rectal exam: PRESENT: deferred Extremities exam: PRESENT: full ROM. ABSENT: calf tenderness, clubbing, pedal edema Musculoskeletal exam: PRESENT: ambulatory, full ROM, normal inspection Neurological exam: PRESENT: alert, awake, oriented to person, oriented to place , oriented to time, oriented to situation, CN II-XII grossly intact. ABSENT: motor sensory deficit Psychiatric exam: PRESENT: appropriate affect, normal mood. ABSENT: homicidal ideation, suicidal ideation Skin exam: PRESENT: dry, intact, warm. ABSENT: cyanosis, rash Results Laboratory Results: 11/03/17 05:40 11/04/17 05:31 11/04/17 05:31 Sodium 140.9 Potassium 5.3 H Chloride 94 L Carbon Dioxide 40 H* Anion Gap 7 BUN 22 H Creatinine 0.70 Est GFR ( Amer) > 60 Est GFR (Non-Af Amer) > 60 Glucose 143 H Calcium 9.2 11/01/17 07:34 Sputum Gram Stain - Final 11/01/17 07:34 Sputum Sputum Culture - Final Haemophilus Influenzae C.albicans/C.dubliniensis Reduced Normal Fatoumata Impressions: Chest X-Ray 10/29/17 00:00 IMPRESSION: Obstructive lung disease. No focal infiltrates Qualifiers - * PATIENT BEING DISCHARGED WITH ANY OF THE FOLLOWING DIAGNOSIS: No Plan Discharge Plan: Home with family, he will receive home health Time Spent: Less than 30 Minutes
[2017-11-04 14:23] VITALS: BP 130/79
== END 2017-11-04 14:59 | disposition home health service (06) | DRG 189 ==
LOC: ER 05:15 → EH 07:44 → 3S 16:31
PROVIDERS: ADMIT Internal Medicine; ATTEND Internal Medicine
DX: J96.21 Acute and chronic respiratory failure with hypoxia (principal); J44.1 Chronic obstructive pulmonary disease with (acute) exacerbation; E87.5 Hyperkalemia; J96.22 Acute and chronic respiratory failure with hypercapnia; E78.5 Hyperlipidemia, unspecified; K59.00 Constipation, unspecified; F17.210 Nicotine dependence, cigarettes, uncomplicated; F10.10 Alcohol abuse, uncomplicated; B96.3 Hemophilus influenzae [H. influenzae] as the cause of diseases classified elsewhere; Z85.51 Personal history of malignant neoplasm of bladder; Z99.81 Dependence on supplemental oxygen; Z79.82 Long term (current) use of aspirin; Z79.51 Long term (current) use of inhaled steroids; Z79.899 Other long term (current) drug therapy
CPT/HCPCS: 36415; 71045; 71046; 80048; 80053; 80069; 82803; 83605; 83735; 83880; 84484; 85025; 85027; 85379; 87040; 87070; 87077; 87205; 93005; 93010; 94640; 94660; 94667; 94799; 96365; 96375; 99285; J0456; J1650; J2920; J2930; J3475; J3490; J7060; J7512; J7620

== ENCOUNTER 2017-12-01 15:56 | Inpatient (IN) | payer MEDICARE ==
[2017-12-01 16:19] LABS: ABSOLUTE BASOPHILS # (AUTO) 0.1 10^3/uL (0.0-0.2); ABSOLUTE LYMPHOCYTES (AUTO) 2.8 10^3/uL (0.5-4.7); ABSOLUTE MONOCYTES (AUTO) 0.9 10^3/uL (0.1-1.4); ABSOLUTE NEUT (AUTO) 6.3 10^3/uL (1.7-8.2); BASOPHILS % (AUTO) 0.6 % (0-2); EOSINOPHILS % (AUTO) 0.2 % (0-6); HEMATOCRIT 45.3 % (37.9-51.0); HEMOGLOBIN 15.5 g/dL (13.5-17.0); LYMPHOCYTES % (AUTO) 27.7 % (13-45); MEAN CORPUSCULAR HEMOGLOBIN 31.1 pg (27.0-33.4); MEAN CORPUSCULAR HGB CONC 34.1 g/dL (32.0-36.0); MEAN CORPUSCULAR VOLUME 91 fl (80-97); MONOCYTES % (AUTO) 8.6 % (3-13); PLATELET COUNT 199 10^3/uL (150-450); RED BLOOD COUNT 4.98 10^6/uL (4.35-5.55); RED CELL DISTRIBUTION WIDTH 13.8 % (11.5-14.0); SEGMENTED NEUTROPHILS % (AUTO) 62.9 % (42-78); TOTAL CELLS COUNTED % (AUTO) 100 %; WHITE BLOOD COUNT 10.1 10^3/uL (4.0-10.5)
[2017-12-01] MEDS ORDERED: IPRATROPIUM/ALBUTEROL 0.5-2.5 MG/3 ML AMPUL NEB ONE ×3 (16:25→18:56)
[2017-12-01] MEDS ORDERED: NORMAL SALINE 500 ML IV ONE (16:27)
[2017-12-01] MEDS ORDERED: METHYLPREDNISOLONE INJ 125 MG/2 ML SDV IV ONE (16:27)
[2017-12-01 16:28] LABS: VENOUS BLOOD BASE EXCESS 5.1 mmol/L; VENOUS BLOOD HCO3 32.5 mmol/L (20-32); VENOUS BLOOD PCO2 58.7 mmHg (35-63); VENOUS BLOOD PH 7.36 (7.30-7.42)
[2017-12-01 16:34] LABS: ALANINE AMINOTRANSFERASE 39 U/L (21-72); ALBUMIN 3.9 g/dL (3.5-5.0); ALKALINE PHOSPHATASE 81 U/L (38-126); ANION GAP 13 (5-19); ASPARTATE AMINO TRANSFERASE 25 U/L (17-59); BILIRUBIN,DIRECT 0.3 mg/dL (0.0-0.4); BILIRUBIN,TOTAL 0.6 mg/dL (0.2-1.3); BLOOD UREA NITROGEN 16 mg/dL (7-20); CALCIUM 9.3 mg/dL (8.4-10.2); CARBON DIOXIDE 31 mmol/L (22-30); CHLORIDE 97 mmol/L (98-107); GLUCOSE 145 mg/dL (75-110); POTASSIUM 4.3 mmol/L (3.6-5.0); SODIUM 140.7 mmol/L (137-145); TOTAL PROTEIN 6.8 g/dL (6.3-8.2)
[2017-12-01] MEDS ORDERED: LORAZEPAM INJ 2 MG/1 ML VIAL IV ONE (16:34)
--- NOTE | 2017-12-01 16:34 | RADIOLOGY REPORT (SQ) ---
EXAM DESCRIPTION: CHEST SINGLE VIEW COMPLETED DATE/TIME: 12/01/2017 4:21 pm REASON FOR STUDY: t2 sepsis protocol COMPARISON: None. EXAM PARAMETERS: NUMBER OF VIEWS: One view. TECHNIQUE: Single frontal radiographic view of the chest acquired. RADIATION DOSE: NA LIMITATIONS: None. FINDINGS: LUNGS AND PLEURA: Hyperinflation. No active infiltrates or masses. MEDIASTINUM AND HILAR STRUCTURES: No masses. Contour normal. HEART AND VASCULAR STRUCTURES: Heart normal in size. Normal vasculature. BONES: No acute findings. HARDWARE: None in the chest. OTHER: No other significant finding. IMPRESSION: NO ACUTE RADIOGRAPHIC FINDING IN THE CHEST. No interval change since 10/29/2017 TECHNICAL DOCUMENTATION: JOB ID: [id number] [employer]- All Rights Reserved Reading location - IP/workstation name: [email or web address]
--- NOTE | 2017-12-01 16:34 | ER Document Report ---
ED General - General Chief Complaint: Shortness Of Breath Stated Complaint: CHEST PAIN Time Seen by Provider: 12/01/17 16:19 TRAVEL OUTSIDE OF THE [place] IN LAST 30 DAYS: No - HPI Notes: 67-year-old male with a history of alcohol abuse, COPD, pneumonia, diastolic dysfunction presents with increasing shortness of breath, cough productive of santos sputum, and numbness in his face and left arm for the past 2 hours. He denies chest pain. Cough has not changed from baseline. He was admitted last month for COPD exacerbation. Denies current antibiotic use. Currently on 20 mg of prednisone daily. Denies headache. No focal weakness. No history of stroke. Denies changes in medications. - Related Data Allergies/Adverse Reactions: No Known Allergies Allergy (Verified 12/01/17 20:03) Past Medical History - Social History Smoking Status: Current Every Day Smoker Frequency of alcohol use: Heavy Family History: CAD, DM, Hypertension - Past Medical History Cardiac Medical History: Reports: Hx Hypercholesterolemia Pulmonary Medical History: Reports: Hx Asthma, Hx Bronchitis, Hx COPD, Hx Pneumonia, Hx Sleep Apnea Denies: Hx Tuberculosis Renal/ Medical History: Reports: Hx Kidney Stones. Denies: Hx Peritoneal Dialysis GI Medical History: Reports: Hx Gastroesophageal Reflux Disease, Hx Hiatal Hernia, Hx Ulcer Musculoskeletal Medical History: Reports Hx Arthritis Psychiatric Medical History: Reports: Hx Attention Deficit Hyperactivity Disorder, Hx Bipolar Disorder Denies: Hx Depression Past Surgical History: Reports: Hx Appendectomy, Hx Cholecystectomy, Hx Genitourinary Surgery - removal of bladder cancer x2, Other - Surgery for bladder cancer. Denies: Hx Pacemaker - Immunizations Hx Diphtheria, Pertussis, Tetanus Vaccination: Yes Hx Pneumococcal Vaccination: 05/16/11 Review of Systems - Review of Systems Notes: REVIEW OF SYSTEMS: CONSTITUTIONAL: -fevers, -chills EENT: -eye pain, -difficulty swallowing, -nasal congestion CARDIOVASCULAR: -chest pain, -syncope. RESPIRATORY: +cough, +SOB GASTROINTESTINAL: -abdominal pain, -nausea, -vomiting, -diarrhea GENITOURINARY: -dysuria, -hematuria MUSCULOSKELETAL: -back pain, -neck pain SKIN: -rash or skin lesions. HEMATOLOGIC: -easy bruising or bleeding. LYMPHATIC: -swollen, enlarged glands. NEUROLOGICAL: -altered mental status or loss of consciousness, -headache, + neurologic symptoms with numbness face like he has a "cap on his head" and left arm PSYCHIATRIC: -anxiety, -depression. Physical Exam - Vital signs Vitals: Resp Pulse Ox 32 H 94 12/01/17 16:00 12/01/17 16:00 Interpretation: Tachycardic, Tachypneic - Notes Notes: PHYSICAL EXAMINATION: GENERAL: Well-appearing, well-nourished and in mild respiratory distress, appears older than stated age HEAD: Atraumatic, normocephalic. EYES: Pupils equal round and reactive to light, extraocular movements intact, conjunctiva are normal. ENT: nares patent, oropharynx clear without exudates. Moist mucous membranes. NECK: Normal range of motion, supple without lymphadenopathy LUNGS: Breath sounds rhonchorous and diminished bilaterally, equal. Mild wheezing. HEART: Regular rhythm, tachycardia, distant heart sounds, no chest wall tenderness ABDOMEN: Soft, nontender, normoactive bowel sounds. No guarding, no rebound. No masses appreciated. EXTREMITIES: Normal range of motion, no pitting or edema. No cyanosis. NEUROLOGICAL: Cranial nerves grossly intact. Normal speech, normal gait. Normal sensory and motor exams. No facial droop. Denies change in sensation between right and left arm. Normal textile knitter strength. No pronator drift. No tongue deviation. Reports normal sensation of face. PSYCH: Anxious, normal affect. SKIN: Warm, Dry, normal turgor, no rashes or lesions noted. Course - Re-evaluation Re-evalutation: 12/01/17 16:33 Patient tachycardic on prior visit. He states he has not had alcohol in 2 weeks. We will give Ativan just in case there is any component of alcohol withdrawal. Neb and Solu-Medrol ordered. 12/01/17 18:57 CT negative. Still tachycardic. Lung sounds diminished with persistent tachypnea. Repeat nebs ordered. 12/01/17 20:58 Received 2 more nebs and still tachypneic and diminished. Tachycardia persists. Rhonchorous cough. Discussed with hospitalist for admission. Requested Rocephin and Zithromax. Patient requesting pain medication for neck and back pain. Patient states numbness has resolved. - Vital Signs Vital signs: Temp Pulse Resp BP Pulse Ox 98.1 F 25 H 92/77 L 93 12/01/17 17:51 12/01/17 20:31 12/01/17 20:31 12/01/17 20:31 - Laboratory Result Diagrams: 12/01/17 15:38 12/01/17 15:38 Laboratory results interpreted by me: 12/01/17 12/01/17 15:38 16:08 VBG HCO3 32.5 H Chloride 97 L Carbon Dioxide 31 H Glucose 145 H Discharge - Discharge Clinical Impression: COPD exacerbation, Paresthesia, Sinus tachycardia Condition: Fair Disposition: ADMITTED INPATIENT Admitting Provider: Hospitalist Unit Admitted: Medical Floor Referrals: JOSSE MORTENSEN MD [Primary Care Provider] - Follow up as needed
[2017-12-01 16:36] LABS: INTERNATIONAL RATION (INR) 0.87; PROTHROMBIN TIME 12.3 SEC (11.4-15.4)
--- NOTE | 2017-12-01 18:02 | RADIOLOGY REPORT (SQ) ---
EXAM DESCRIPTION: CT HEAD WITHOUT COMPLETED DATE/TIME: 12/01/2017 5:47 pm REASON FOR STUDY: numbness face and left arm COMPARISON: 09/01/2015 TECHNIQUE: Axial images acquired through the brain without intravenous contrast. Images reviewed wi th bone, brain and subdural windows. Images stored on PACS. All CT scanners at this facility use dose modulation, iterative reconstruction, and/or weight based d osing when appropriate to reduce radiation dose to as low as reasonably achievable (ALARA). [facility]: Dose Right [facility]: CareDose [facility]: Dose Right [facility]: Teradose 4D [facility]: Primeloop RADIATION DOSE: CT Rad equipment meets quality standard of care and radiation dose reduction techniq ues were employed. CTDIvol: 53.2 mGy. DLP: 964 mGy-cm. mGy. LIMITATIONS: None. FINDINGS: VENTRICLES: Normal size and contour. CEREBRUM: No masses. No hemorrhage. No midline shift. No evidence for acute infarction. Normal gra y/white matter differentiation. No areas of low density in the white matter. CEREBELLUM: No masses. No hemorrhage. No alteration of density. No evidence for acute infarction. EXTRAAXIAL SPACES: No fluid collections. No masses. ORBITS AND GLOBE: No intra- or extraconal masses. Normal contour of globe without masses. CALVARIUM: No fracture. PARANASAL SINUSES: Right maxillary sinus fluid level. SOFT TISSUES: No mass or hematoma. OTHER: No other significant finding. IMPRESSION: No acute intracranial findings. Right maxillary sinus fluid level. EVIDENCE OF ACUTE STROKE: NO. COMMENT: Quality ID # [id number]: Final reports with documentation of one or more dose reduction techniques (e.g., Automated exposure control, adjustment of the mA and/or kV according to patient size, use of iterative reconstruction technique) TECHNICAL DOCUMENTATION: JOB ID: [id number] [place]-72 2010 [employer]- All Rights Reserved Reading location - IP/workstation name: [email or web address]
[2017-12-01] MEDS ORDERED: AZITHROMYCIN 250 MG TABLET PO ONE (20:57)
[2017-12-01] MEDS ORDERED: CEFTRIAXONE INJ 1000 MG VIAL IV ONE (20:57)
[2017-12-01] MEDS ORDERED: TRAMADOL HCL 50 MG TABLET PO ONE (21:00)
--- NOTE | 2017-12-01 23:08 | EKG REPORT ---
SEVERITY:- BORDERLINE ECG - SINUS TACHYCARDIA RIGHT AXIS DEVIATION BORDERLINE INFERIOR Q WAVES BORDERLINE ST ELEVATION INFERIOR LEADS, REC REPEAT EKG : Confirmed by: Giselle Martinez 01-Dec-2017 23:07:27
[2017-12-01] MEDS ORDERED: MAG HYDROX/AL HYDROX/SIMETH SUSP 30 ML UDCUP PO PRN (23:42)
[2017-12-01] MEDS ORDERED: ALBUTEROL SULFATE 0.083% NEB 2.5 MG/3 ML AMPUL NEB PRN (23:42)
[2017-12-01] MEDS ORDERED: ONDANSETRON HCL INJ/PF 4 MG/2 ML SDV IV PRN (23:42)
[2017-12-01] MEDS ORDERED: ACETAMINOPHEN 325 MG TABLET PO PRN (23:42)
[2017-12-01] MEDS ORDERED: MAGNESIUM HYDROXIDE SUSP 30 ML UDCUP PO PRN (23:42)
[2017-12-02 03:14] LABS: APPEARANCE,URINE CLEAR; BILIRUBIN,URINE NEGATIVE (NEGATIVE); COLOR,URINE YELLOW; GLUCOSE, URINE NEGATIVE (NEGATIVE); KETONES,URINE NEGATIVE (NEGATIVE); LEUKOCYTE ESTERASE,URINE NEGATIVE (NEGATIVE); NITRITE,URINE NEGATIVE (NEGATIVE); PROTEIN,URINE NEGATIVE (NEGATIVE); URINE SPECIFIC GRAVITY 1.015; UROBILINOGEN,URINE NEGATIVE mg/dL (<2.0)
[2017-12-02 04:52] LABS: ABSOLUTE LYMPHOCYTES (AUTO) 1.1 10^3/uL (0.5-4.7); ABSOLUTE MONOCYTES (AUTO) 0.2 10^3/uL (0.1-1.4); ABSOLUTE NEUT (AUTO) 6.2 10^3/uL (1.7-8.2); BASOPHILS % (AUTO) 0.1 % (0-2); HEMATOCRIT 40.1 % (37.9-51.0); HEMOGLOBIN 13.7 g/dL (13.5-17.0); LYMPHOCYTES % (AUTO) 14.8 % (13-45); MEAN CORPUSCULAR HGB CONC 34.1 g/dL (32.0-36.0); MEAN CORPUSCULAR VOLUME 91 fl (80-97); MONOCYTES % (AUTO) 2.2 % (3-13); PLATELET COUNT 181 10^3/uL (150-450); RED BLOOD COUNT 4.42 10^6/uL (4.35-5.55); RED CELL DISTRIBUTION WIDTH 14.3 % (11.5-14.0); SEGMENTED NEUTROPHILS % (AUTO) 82.9 % (42-78); TOTAL CELLS COUNTED % (AUTO) 100 %; WHITE BLOOD COUNT 7.5 10^3/uL (4.0-10.5)
[2017-12-02 05:11] LABS: ANION GAP 7 (5-19); BLOOD UREA NITROGEN 16 mg/dL (7-20); CALCIUM 9.2 mg/dL (8.4-10.2); CARBON DIOXIDE 31 mmol/L (22-30); CHLORIDE 101 mmol/L (98-107); CHOLESTEROL 222.91 mg/dL (0-200); GLUCOSE 140 mg/dL (75-110); SODIUM 139.3 mmol/L (137-145); TRIGLYCERIDES 56 mg/dL (<150)
--- NOTE | 2017-12-02 05:17 | PDOC H&P ---
History of Present Illness Admission Date/PCP: 12/01/17 22:22 JOSSE MORTENSEN MD Patient complains of: Shortness of breath History of Present Illness: MANI FLYNN is a 67 year old male with history of multiple medical problems that will be mentioned below who presented to the emergency room with acute onset of dyspnea with cough productive of grayish sputum as well as wheezing which have been going on over the last couple of days. He denies any fever or chills. No nausea vomiting or abdominal pain. He has been having bilateral ankle edema with associated left lower extremity weakness and during his ambulation. He also admitted to left upper extremity tingling which has improved in the emergency room . No chest pain or orthopnea or paroxysmal nocturnal dyspnea. He complains of low back pain from degenerative disc disease and reportedly lumbar disc prolapse which worsens his dyspnea upon presentation the emergency room, he was tachycardic and tachypneic with pulse oximetry of 94% on 2 L O2 by nasal cannula. The patient had a chest x-ray that showed no acute cardiopulmonary disease. He had a head CT scan that revealed no acute intracranial abnormalities. Labs were remarkable for CO2 31 with normal BNP. He was given 3 nebulized duo nebs as well as IV Solu-Medrol, IV Rocephin and Zithromax. He will be admitted to medical monitored bed for further evaluation and management. Past Medical History Cardiac Medical History: Reports: Hyperlipidema Pulmonary Medical History: Reports: Asthma, Bronchitis, Chronic Obstructive Pulmonary Disease (COPD), Pneumonia, Sleep Apnea Denies: Tuberculosis GI Medical History: Reports: Gastroesophageal Reflux Disease, Hiatal Hernia Musculoskeltal Medical History: Reports: Arthritis Psychiatric Medical History: Reports: Attention Deficit Hyperactivity Disorder, Bipolar Disorder Denies: Depression Past Surgical History Past Surgical History: Reports: Appendectomy, Cholecystectomy, Other - Surgery for bladder cancer Denies: Pacemaker Social History Smoking Status: Current Every Day Smoker Cigarettes Packs Per Day: 1 Number of Years Smokin Last Time Smoked: t-1 Frequency of Alcohol Use: Heavy Hx Recreational Drug Use: No Drugs: None Hx Prescription Drug Abuse: No Family History Family History: CAD, DM, Hypertension Parental Family History Reviewed: Yes Children Family History Reviewed: Yes Sibling(s) Family History Reviewed.: Yes Medication/Allergy Home Medications: Albuterol Sulfate [Ventolin Hfa] 2 puff IH Q4HP PRN 10/16/17 Aspirin 81 mg PO DAILY 10/16/17 Budesonide/Formoterol Fumarate [Symbicort HFA 160-4.5 mcg Inhaler 6 gm] 2 puff IH Q12 10/16/17 Buspirone HCl [Buspar 15 mg Tablet] 15 mg PO Q12 10/16/17 Gabapentin [Neurontin 300 mg Capsule] 300 mg PO Q8 10/16/17 Fluticasone Propionate [Flonase Nasal Rogers 50 Mcg/Rogers 16 gm] 2 spray NASL DAILY spray.pump 10/24/17 Guaifenesin [Mucinex Sr 600 mg Tablet.sa] 1,200 mg PO Q12 tablet.sa 10/24/17 Lactobacillus Acidophilus [Bacid 250 mg Tablet] 500 mg PO BID tab 10/24/17 Omeprazole 20 mg PO DAILY 10 Days #10 tablet. 10/24/17 Ascorbic Acid [Vitamin C] 1,000 mg PO DAILYP PRN 10/27/17 Albuterol Sulfate [Albuterol Sulfate 2.5mg/3 mL] 3 ml IH RTQ4HP PRN #1 vial.neb 11/04/17 Azithromycin [Zithromax 250 mg Tablet] 500 mg PO NOON #3 tablet 11/04/17 Montelukast Sodium [Singulair 10 mg Tablet] 10 mg PO QPM #30 tablet 11/04/17 Prednisone [Deltasone 20 mg Tablet] 20 mg PO ASDIR PRN #30 tablet 11/04/17 Allergies/Adverse Reactions: No Known Allergies Allergy (Verified 12/01/17 20:03) Review of Systems Review of Systems: As per history of present illness. All pertinent systems were reviewed above. Constitutional, HEENT, cardiovascular, respiratory, GI, , musculoskeletal, neuro, psychiatric, endocrine, integumentary and hematologic systems were reviewed and are otherwise negative/unremarkable except for positive findings mentioned above in the HPI. Physical Exam Vital Signs: Temp Pulse Resp BP Pulse Ox 97.7 F 88 22 H 100/76 96 12/02/17 03:23 12/02/17 03:23 12/02/17 03:23 12/02/17 03:23 12/02/17 03:23 Intake & Output 11/30/17 12/01/17 12/02/17 06:59 06:59 06:59 Weight 83.6 kg Exam: Generally: Pleasant elderly male in mild respiratory distress with conversational dyspnea. Vital signs-as listed Head - atraumatic, normocephalic. Pupils - equal, round and reactive to light and accommodation. Extraocular movements are intact. No scleral icterus. Oropharynx - moist mucous membranes and tongue. No pharyngeal erythema or exudate. Neck - supple. No JVD. Carotid pulses 2+ bilaterally. No carotid bruits. No palpable thyromegaly or lymphadenopathy. Cardiovascular - regular rate and rhythm. Normal S1 and S2. No murmurs, gallops or rubs. Lungs -diffuse expiratory wheezes with tight expiratory airflow and a harsh vesicular breathing Abdomen - soft and nontender. Positive bowel sounds. No palpable organomegaly or masses. Extremities -bilateral ankle pitting edema more on the lateral malleolus and more on the left, with no clubbing or cyanosis. Neuro -cranial nerves II through XII grossly intact. Muscle strength was 3-4/5 in the left lower extremity in 4-5/5 in the left upper extremity, compared to 5/ 5 in both right upper and lower extremities. He had normal sensory exam to light touch. Gait was not tested Skin - no rashes. and rectal exam - deferred. Results Laboratory Results: 12/02/17 04:10 12/02/17 12/02/17 02:30 04:10 WBC 7.5 RBC 4.42 Hgb 13.7 Hct 40.1 MCV 91 MCH 31.0 MCHC 34.1 RDW 14.3 H Plt Count 181 Seg Neutrophils % 82.9 H Lymphocytes % 14.8 Monocytes % 2.2 L Eosinophils % 0.0 Basophils % 0.1 Absolute Neutrophils 6.2 Absolute Lymphocytes 1.1 Absolute Monocytes 0.2 Absolute Eosinophils 0.0 Absolute Basophils 0.0 Urine Color YELLOW Urine Appearance CLEAR Urine pH 5.0 Ur Specific [place] 1.015 Urine Protein NEGATIVE Urine Glucose (UA) NEGATIVE Urine Ketones NEGATIVE Urine Blood NEGATIVE Urine Nitrite NEGATIVE Ur Leukocyte Esterase NEGATIVE Urine WBC (Auto) 1 Urine RBC (Auto) 5 EKG Comments: Showed sinus tachycardia with a rate of 123 with a right axis deviation Impressions: Chest X-Ray 12/01/17 15:59 IMPRESSION: NO ACUTE RADIOGRAPHIC FINDING IN THE CHEST. No interval change since 10/29/[address] 12/01/17 16:57 IMPRESSION: No acute intracranial findings. Right maxillary sinus fluid level. EVIDENCE OF ACUTE STROKE: NO. Assessment & Plan - Diagnosis (1) COPD exacerbation Is this a current diagnosis for this admission?: Yes Plan: The patient will be admitted to a medically monitored bed and will be placed on IV steroid therapy with IV Solu-Medrol as well as nebulized bronchodilator therapy with duonebs q.i.d. and q.4 hours p.r.n., mucolytic therapy with Mucinex and antibiotic therapy with IV Rocephin and Zithromax. Sputum Gram stain culture and sensitivity will be obtained. O2 protocol will be followed. (2) Right leg weakness Is this a current diagnosis for this admission?: Yes Plan: -We will follow neuro checks q.4 hours for 24 hours. The patient will be placed on aspirin. For further assessment for possible TIA, will obtain a brain MRI without contrast as well as bilateral carotid Doppler and 2D echo with bubble study . A physical/occupation therapy consults will be obtained in a.m.. The patient will be placed on statin therapy and fasting lipids will be checked. (3) Acute respiratory failure with hypoxia Is this a current diagnosis for this admission?: Yes Plan: This is acute on top of chronic history failure as the patient is on 3.5 L of O2 by nasal cannula at home. O2 protocol will be followed. Management as above. (4) Tobacco dependence Is this a current diagnosis for this admission?: Yes Plan: I counseled the patient for smoking cessation and the patient will receive further counseling here. (5) DVT prophylaxis Is this a current diagnosis for this admission?: Yes Plan: Subcutaneous Lovenox - Plan Summary Plan Summary: The plan of care was discussed in details with the patient. I answered all questions. The patient agreed to proceed with the above-mentioned plan. The patient is presumably full code. This note was created by [employer] software and may contain typo errors that may have not been proofread.
[2017-12-02 05:19] LABS: POTASSIUM 5.4 mmol/L (3.6-5.0)
[2017-12-02 05:22] LABS: DIRECT LDL 162 mg/dL (<100)
[2017-12-02] MEDS ORDERED: SIMVASTATIN 10 MG TABLET PO ONE (05:30)
[2017-12-02] MEDS ORDERED: ASPIRIN 81 MG TABLET, CHEWABLE PO ONE (05:30)
[2017-12-02] MEDS: METHYLPREDNISOLONE INJ 40 MG/1 ML SDV IV SCH ×3 (05:53→22:35)
[2017-12-02] MEDS: GABAPENTIN 300 MG CAPSULE PO SCH ×3 (05:54→22:35)
[2017-12-02] MEDS: LANSOPRAZOLE 15 MG TAB.RAP.DR PO SCH (05:54)
[2017-12-02] MEDS: IPRATROPIUM/ALBUTEROL 0.5-2.5 MG/3 ML AMPUL NEB SCH ×4 (07:58→20:03)
[2017-12-02] MEDS ORDERED: BUSPIRONE HCL 10 MG TABLET PO SCH (10:00)
[2017-12-02] MEDS ORDERED: CEFTRIAXONE SODIUM 1,000 MG in DEXTROSE 5%-WATER 100 ML IV SCH (10:00)
[2017-12-02] MEDS ORDERED: ASPIRIN 81 MG TABLET, CHEWABLE PO SCH (10:00)
[2017-12-02] MEDS: ASPIRIN 81 MG TABLET, CHEWABLE PO SCH (10:40)
[2017-12-02] MEDS: LACTOBACILLUS ACIDOPHILUS 250 MG TAB PO SCH ×2 (10:40→18:21)
[2017-12-02] MEDS: GUAIFENESIN 600 MG TABLET.SA PO SCH ×2 (10:40→22:35)
[2017-12-02] MEDS: ENOXAPARIN SODIUM INJ 40 MG/0.4 ML DISP.SYRIN SUBCUT SCH (10:41)
[2017-12-02] MEDS: FLUTICASONE NASAL SPRAY 50 MCG/SPRY 120 SPRAY/16 GM NASL SCH (10:41)
[2017-12-02] MEDS ORDERED: LORAZEPAM INJ 2 MG/1 ML VIAL ONE (10:48)
--- NOTE | 2017-12-02 11:16 | RADIOLOGY REPORT (SQ) ---
EXAM DESCRIPTION: CAROTID DOPPLER COMPLETED DATE/TIME: 12/02/2017 10:54 am REASON FOR STUDY: Left-sided weakness and numbness COMPARISON: CT brain 11/28/2017 TECHNIQUE: Grayscale ultrasound, Doppler velocity and spectra, and color Doppler images acquired of the extra-cranial carotid and vertebral arteries. Images stored on PACS. LIMITATIONS: None. FINDINGS: RIGHT CAROTID CCA Velocities: Within normal limits. ICA Velocities Peak systolic 0.66 m/s. End diastolic 0.18 m/s. Proximal ICA/CCA peak systolic ratio 0.93. Spectra normal. No significant plaque. LEFT CAROTID CCA Velocities: Within normal limits. ICA Velocities Peak systolic 0.88 m/s. End diastolic 0.29 m/s. Proximal ICA/CCA peak systolic ratio 1.0. Spectra normal. No significant plaque. VERTEBRAL ARTERIES: Antegrade flow. Normal waveforms. SUBCLAVIAN ARTERIES: Not evaluated OTHER: No other significant finding. IMPRESSION: NO HEMODYNAMICALLY SIGNIFICANT STENOSIS. COMMENT: Quality ID #[id number]: Velocity criteria are extrapolated from the diameter data as defined by t he Society of Radiologists in Ultrasound Consensus Conference. Radiology 2003: 229; 340-346. TECHNICAL DOCUMENTATION: JOB ID: [id number] [employer]- All Rights Reserved Reading location - IP/workstation name: [email or web address]
--- NOTE | 2017-12-02 12:09 | RADIOLOGY REPORT (SQ) ---
EXAM DESCRIPTION: MRI HEAD WITHOUT COMPLETED DATE/TIME: 12/02/2017 11:47 am REASON FOR STUDY: Left upper extremity tingling and left leg weaknes , left face and arm numbness an d tingling off and on for several months COMPARISON: Carotid Doppler 12/02/2017, CT brain 12/01/2017 TECHNIQUE: Multiplanar imaging includes non-contrasted T1, T2, FLAIR, and diffusion with ADC map seq uences. Images stored on PACS. LIMITATIONS: None. FINDINGS: ANATOMY: No congenital anomalies. Normal vascular flow voids. Pituitary fossa normal. CSF SPACES: Normal in size and contour. No hemorrhage. CEREBRUM: No MR evidence of large territory acute ischemic change, acute intracranial hemorrhage, mas s effect, or shift. Diffusion-weighted images are negative for acute infarct. There is moderate spotty chronic small vessel ischemic change in the bifrontal and biparietal subcort ical and deep white matter. Old lacunar infarct lateral basal ganglia/ external capsule region. POSTERIOR FOSSA: Moderate chronic small vessel ischemic change in the mid terra. No acute posterior f maryam ischemic change, acute posterior fossa hemorrhage, mass effect or shift. Internal auditory canal s, cerebello-pontine angles, mastoids normal. DIFFUSION IMAGING: Negative for acute or sub-acute infarction. ORBITS: No masses. Globes normal. PARANASAL SINUSES: No fluid levels. Mucosa normal. OTHER: Susceptibility Imaging-No T2* evidence of abnormal parenchymal iron deposition. IMPRESSION: Mild hemispheric small vessel white matter disease, moderate pontine small vessel diseas e. No acute infarct. No acute intracranial hemorrhage, mass effect, or midline shift. EVIDENCE OF ACUTE STROKE: NO. TECHNICAL DOCUMENTATION: JOB ID: [id number] [employer]- All Rights Reserved Reading location - IP/workstation name: [email or web address]
--- NOTE | 2017-12-02 15:00 | PDOC PROGRESS REPORT ---
Subjective Progress Note for:: 12/02/17 Subjective:: The patient is sitting up in bed. He states that his breathing is still difficult, but better than it was last night. He also raises concerns over transient lower extremity edema. Reason For Visit: COPD EXACERBATION,POSSIBLE TIA Physical Exam Vital Signs: Temp Pulse Resp BP Pulse Ox 98.4 F 73 16 112/70 93 12/02/17 12:12 12/02/17 12:53 12/02/17 12:53 12/02/17 12:12 12/02/17 12:53 Intake & Output 12/01/17 12/02/17 12/03/17 06:59 06:59 06:59 Intake Total 105 459 Output Total 625 Balance 105 -166 Weight 85.7 kg General appearance: PRESENT: other - Mild conversational dyspnea. Respiratory exam: PRESENT: other - Greatly diminished breath sounds bilaterally. No rhonchi, wheezes, or rales are auscultated. Positive for increased work of breathing. No tactile fremitus. Cardiovascular exam: PRESENT: RRR, other - No lateral PMI. No thrills.. ABSENT : gallop, rubs, systolic murmur Pulses: PRESENT: other - Diminished distal pulses. GI/Abdominal exam: PRESENT: normal bowel sounds, soft. ABSENT: hernia, mass, organolmegaly, tenderness Extremities exam: PRESENT: +2 edema. ABSENT: clubbing, pedal edema, tenderness Neurological exam: PRESENT: alert, awake, oriented to person, oriented to place , oriented to time, oriented to situation, CN II-XII grossly intact. ABSENT: motor sensory deficit Psychiatric exam: PRESENT: appropriate affect, normal mood Skin exam: PRESENT: dry, intact, warm Results Laboratory Results: 12/02/17 04:10 12/02/17 04:10 12/02/17 12/02/17 12/02/17 02:30 04:10 04:10 WBC 7.5 RBC 4.42 Hgb 13.7 Hct 40.1 MCV 91 MCH 31.0 MCHC 34.1 RDW 14.3 H Plt Count 181 Seg Neutrophils % 82.9 H Lymphocytes % 14.8 Monocytes % 2.2 L Eosinophils % 0.0 Basophils % 0.1 Absolute Neutrophils 6.2 Absolute Lymphocytes 1.1 Absolute Monocytes 0.2 Absolute Eosinophils 0.0 Absolute Basophils 0.0 Sodium 139.3 Potassium 5.4 H D Chloride 101 Carbon Dioxide 31 H Anion Gap 7 BUN 16 Creatinine 0.70 Est GFR ( Amer) > 60 Est GFR (Non-Af Amer) > 60 Glucose 140 H Calcium 9.2 Triglycerides 56 Cholesterol 222.91 H LDL Cholesterol Direct 162 H VLDL Cholesterol 11.0 HDL Cholesterol 46 Urine Color YELLOW Urine Appearance CLEAR Urine pH 5.0 Ur Specific [place] 1.015 Urine Protein NEGATIVE Urine Glucose (UA) NEGATIVE Urine Ketones NEGATIVE Urine Blood NEGATIVE Urine Nitrite NEGATIVE Ur Leukocyte Esterase NEGATIVE Urine WBC (Auto) 1 Urine RBC (Auto) 5 12/01/17 12/02/17 12/02/17 16:08 04:10 04:10 WBC 7.5 RBC 4.42 Hgb 13.7 Hct 40.1 RDW 14.3 H Plt Count 181 Seg Neutrophils % 82.9 H Lymphocytes % 14.8 Monocytes % 2.2 L Sodium 139.3 Potassium 5.4 H D Chloride 101 Carbon Dioxide 31 H Anion Gap 7 BUN 16 Creatinine 0.70 Est GFR ( Amer) > 60 Est GFR (Non-Af Amer) > 60 Glucose 140 H Lactic Acid 1.5 Calcium 9.2 Triglycerides 56 Cholesterol 222.91 H LDL Cholesterol Direct 162 H VLDL Cholesterol 11.0 HDL Cholesterol 46 Impressions: Chest X-Ray 12/01/17 15:59 IMPRESSION: NO ACUTE RADIOGRAPHIC FINDING IN THE CHEST. No interval change since 10/29/[address] 12/01/17 16:57 IMPRESSION: No acute intracranial findings. Right maxillary sinus fluid level. EVIDENCE OF ACUTE STROKE: NO. Carotid Doppler Study 12/02/17 00:00 IMPRESSION: NO HEMODYNAMICALLY SIGNIFICANT STENOSIS. Head MRI 12/02/17 00:00 IMPRESSION: Mild hemispheric small vessel white matter disease, moderate pontine small vessel disease. No acute infarct. No acute intracranial hemorrhage, mass effect, or midline shift. EVIDENCE OF ACUTE STROKE: NO. Assessment & Plan - Diagnosis (1) TIA (transient ischemic attack) Is this a current diagnosis for this admission?: Yes Plan: Stroke work up to include echocardiogram, carotid doppler, and MRI. Pending. Also PT/OT. (2) COPD exacerbation Is this a current diagnosis for this admission?: Yes Plan: Supplementary O2, nebulizer treatments, IV antibiotics, and IV steroids. (3) DVT prophylaxis Is this a current diagnosis for this admission?: Yes Plan: Lovenox. (4) Paresthesia Is this a current diagnosis for this admission?: Yes Plan: Possibly due to TIA/CVA. Stroke work up in place. (5) Right leg weakness Is this a current diagnosis for this admission?: Yes Plan: Possibly due to TIA vs CVA. Stroke work up in place. (6) Sinus tachycardia Is this a current diagnosis for this admission?: Yes Plan: Resolved. (7) Acute bronchitis Is this a current diagnosis for this admission?: Yes Plan: IV antibiotics. (8) Acute respiratory failure with hypoxia Is this a current diagnosis for this admission?: Yes Plan: Supplementary O2, nebulizer treatments, IV steroids, and IV antibiotics. - Time Time Spent with patient: 35 or more minutes Medications reviewed and adjusted accordingly: Yes
[2017-12-02] MEDS: MONTELUKAST SODIUM 10 MG TABLET PO SCH (18:21)
[2017-12-02] MEDS ORDERED: BUSPIRONE HCL 10 MG TABLET PO ONE (20:00)
[2017-12-02] MEDS: CEFTRIAXONE SODIUM 1,000 MG in DEXTROSE 5%-WATER 50 ML IV SCH (20:36)
[2017-12-02] MEDS ORDERED: AZITHROMYCIN INJ 500 MG VIAL IV SCH (21:00)
[2017-12-02] MEDS: SIMVASTATIN 10 MG TABLET PO SCH (22:34)
[2017-12-02] MEDS: AZITHROMYCIN 500 MG in DEXTROSE 5%-WATER 250 ML IV SCH (22:36)
[2017-12-03 04:56] LABS: ABSOLUTE BASOPHILS # (AUTO) 0.1 10^3/uL (0.0-0.2); ABSOLUTE LYMPHOCYTES (AUTO) 1.2 10^3/uL (0.5-4.7); ABSOLUTE MONOCYTES (AUTO) 0.4 10^3/uL (0.1-1.4); ABSOLUTE NEUT (AUTO) 10.8 10^3/uL (1.7-8.2); BASOPHILS % (AUTO) 0.9 % (0-2); HEMATOCRIT 38.9 % (37.9-51.0); HEMOGLOBIN 13.1 g/dL (13.5-17.0); LYMPHOCYTES % (AUTO) 9.7 % (13-45); MEAN CORPUSCULAR HEMOGLOBIN 30.4 pg (27.0-33.4); MEAN CORPUSCULAR HGB CONC 33.8 g/dL (32.0-36.0); MEAN CORPUSCULAR VOLUME 90 fl (80-97); MONOCYTES % (AUTO) 3.5 % (3-13); PLATELET COUNT 206 10^3/uL (150-450); RED BLOOD COUNT 4.32 10^6/uL (4.35-5.55); RED CELL DISTRIBUTION WIDTH 13.8 % (11.5-14.0); SEGMENTED NEUTROPHILS % (AUTO) 85.9 % (42-78); TOTAL CELLS COUNTED % (AUTO) 100 %; WHITE BLOOD COUNT 12.6 10^3/uL (4.0-10.5)
[2017-12-03 05:16] LABS: ANION GAP 11 (5-19); BLOOD UREA NITROGEN 21 mg/dL (7-20); CALCIUM 9.4 mg/dL (8.4-10.2); CARBON DIOXIDE 30 mmol/L (22-30); CHLORIDE 101 mmol/L (98-107); GLUCOSE 121 mg/dL (75-110); POTASSIUM 5.2 mmol/L (3.6-5.0); SODIUM 142.2 mmol/L (137-145)
[2017-12-03] MEDS: METHYLPREDNISOLONE INJ 40 MG/1 ML SDV IV SCH ×3 (05:33→21:14)
[2017-12-03] MEDS: GABAPENTIN 300 MG CAPSULE PO SCH ×3 (05:33→21:13)
[2017-12-03] MEDS: LANSOPRAZOLE 15 MG TAB.RAP.DR PO SCH (05:33)
[2017-12-03] MEDS: IPRATROPIUM/ALBUTEROL 0.5-2.5 MG/3 ML AMPUL NEB SCH ×4 (07:36→20:27)
[2017-12-03] MEDS: GUAIFENESIN 600 MG TABLET.SA PO SCH ×2 (09:15→21:13)
[2017-12-03] MEDS: LACTOBACILLUS ACIDOPHILUS 250 MG TAB PO SCH ×2 (09:15→18:03)
[2017-12-03] MEDS: ENOXAPARIN SODIUM INJ 40 MG/0.4 ML DISP.SYRIN SUBCUT SCH (09:15)
[2017-12-03] MEDS: ASPIRIN 81 MG TABLET, CHEWABLE PO SCH (09:16)
[2017-12-03] MEDS: BUSPIRONE HCL 10 MG TABLET PO SCH ×2 (09:16→21:13)
[2017-12-03] MEDS: FLUTICASONE NASAL SPRAY 50 MCG/SPRY 120 SPRAY/16 GM NASL SCH (09:16)
--- NOTE | 2017-12-03 13:16 | XCELERA REPORT ---
[address] [address] Transthoracic Echocardiogram Report Name: MANI FLYNN Age: 67 yrs Gender: Male : 1950 Patient Status: Inpatient Patient Location: [address] [place] [address] Study Date: 12/02/2017 09:23 AM Height: 72 in Weight: 187 lb BSA: 2.1 m2 Procedure: A complete two-dimensional transthoracic echocardiogram was performed (2D, M-mode, spectral and color flow Doppler). The study was technically difficult with many images being suboptimal in quality. Reason For Study: TIA Ordering Physician: GLYNN ONEAL Performed By: Lasha Meza Interpretation Summary The left ventricular ejection fraction is preserved. Consider additional methods to assess LVEF such as MUGA scan, CTA heart, cardiac MRI, WINSOME, etc. if clinically indicated. The left ventricle is grossly normal size. There is mild concentric left ventricular hypertrophy. Doppler measurements suggest pseudonormalized left ventricular relaxation, which is associated with grade II/IV or mild to moderate diastolic dysfunction Regional wall motion abnormalities cannot be excluded due to limited visualization. The right ventricle is mildly dilated. The right ventricular systolic function is normal. Borderline right atrial enlargement. Borderline left atrial enlargement. There is no mitral regurgitation noted. There is no mitral valve stenosis. There is no aortic valve stenosis There is a trace amount of aortic regurgitation There is a trace or physiologic amount of tricuspid regurgitation Tricuspid regurgitation jet envelope not well defined to measure RV systolic pressure accurately. The aortic root is not well visualized. The inferior vena cava appeared normal and decreased > 50% with respiration (RAP 5-10 mmHg) There is no pericardial effusion. MMode/2D Measurements & Calculations RVDd: 4.5 cm LVIDd: 3.4 cm FS: 32.5 % Ao root diam: 3.3 cm IVSd: 1.0 cm LVIDs: 2.3 cm EDV(Teich): 49.0 ml LVPWd: 1.1 cm ESV(Teich): 18.6 ml Ao root area: 8.6 cm2 EF(Teich): 61.9 % LA dimension: 3.6 cm Doppler Measurements & Calculations MV E max alicia: MV P1/2t max alicia: Ao V2 max: LV V1 max P.6 cm/sec 77.4 cm/sec 130.3 cm/sec 3.5 mmHg MV A max alicia: MV P1/2t: 67.3 msec Ao max PG: LV V1 max: 83.3 cm/sec 6.8 mmHg 94.0 cm/sec MV E/A: 0.79 MVA(P1/2t): 3.3 cm2 MV dec slope: 336.5 cm/sec2 MV dec time: 0.26 sec PA V2 max: 83.9 cm/sec PA max P.8 mmHg Left Ventricle The left ventricle is grossly normal size. There is mild concentric left ventricular hypertrophy. The left ventricular ejection fraction is preserved. Consider additional methods to assess LVEF such as MUGA scan, CTA heart, cardiac MRI, WINSOME, etc. if clinically indicated. Doppler measurements suggest pseudonormalized left ventricular relaxation, which is associated with grade II/IV or mild to moderate diastolic dysfunction. Regional wall motion abnormalities cannot be excluded due to limited visualization. Right Ventricle The right ventricle is mildly dilated. The right ventricular systolic function is normal. Atria Borderline right atrial enlargement. Borderline left atrial enlargement. Interarterial septum not well visualized and not well dopplered. Cannot comment on ASD/PFO presence. Mitral Valve The mitral valve is grossly normal. There is no mitral valve stenosis. There is no mitral regurgitation noted. Aortic Valve The aortic valve is not well visualized secondary to technical limitations. There is no aortic valve stenosis. There is a trace amount of aortic regurgitation. Tricuspid Valve The tricuspid valve is not well visualized, but is grossly normal. There is no tricuspid stenosis. There is a trace or physiologic amount of tricuspid regurgitation. Tricuspid regurgitation jet envelope not well defined to measure RV systolic pressure accurately. Pulmonic Valve The pulmonic valve is not well visualized. Great Vessels The aortic root is not well visualized. The inferior vena cava appeared normal and decreased > 50% with respiration (RAP 5-10 mmHg). Effusions There is no pericardial effusion. : GLYNN ONEAL > Giselle Martinez
--- NOTE | 2017-12-03 16:34 | PDOC PROGRESS REPORT ---
Subjective Progress Note for:: 12/03/17 Subjective:: Patient seen resting in bed. He is awake, alert, oriented 3. He denies any chest pain, shortness breath or dyspnea at rest. He states he has a productive cough. He is no longer wheezing. He does become dyspneic with minimal exertion. He denies any nausea, vomiting or abdominal pain. He denies any significant arthralgias or myalgias. He admits to being anxious. He does not feel the BuSpar he is taking is helped at all. Remaining review of systems are negative. Reason For Visit: COPD EXACERBATION,POSSIBLE TIA Physical Exam Vital Signs: Temp Pulse Resp BP Pulse Ox 98.5 F 90 16 111/68 93 12/03/17 11:31 12/03/17 15:58 12/03/17 15:58 12/03/17 11:31 12/03/17 11:48 Intake & Output 12/02/17 12/03/17 12/04/17 06:59 06:59 06:59 Intake Total 105 2319 354 Output Total 1225 Balance 105 1094 354 Weight 85.7 kg 83.3 kg General appearance: PRESENT: no acute distress, disheveled, well-developed, well -nourished Head exam: PRESENT: atraumatic, normocephalic Eye exam: PRESENT: conjunctiva pink, EOMI, PERRLA. ABSENT: scleral icterus Ear exam: PRESENT: normal external ear exam Mouth exam: PRESENT: moist, tongue midline Teeth exam: PRESENT: poor dentation Neck exam: ABSENT: carotid bruit, JVD, lymphadenopathy, thyromegaly Respiratory exam: PRESENT: rhonchi - Scattered bilaterally, symmetrical, unlabored Cardiovascular exam: PRESENT: RRR. ABSENT: diastolic murmur, rubs, systolic murmur Pulses: PRESENT: normal dorsalis pedis pul Vascular exam: PRESENT: normal capillary refill GI/Abdominal exam: PRESENT: normal bowel sounds, soft. ABSENT: distended, guarding, mass, organolmegaly, rebound, tenderness Rectal exam: PRESENT: deferred Extremities exam: PRESENT: full ROM. ABSENT: calf tenderness, clubbing, pedal edema Neurological exam: PRESENT: alert, awake, oriented to person, oriented to place , oriented to time, oriented to situation, CN II-XII grossly intact. ABSENT: motor sensory deficit Psychiatric exam: PRESENT: anxious Skin exam: PRESENT: dry, intact, warm. ABSENT: cyanosis, rash Results Laboratory Results: 12/03/17 04:18 12/03/17 04:18 12/03/17 12/03/17 04:18 04:18 WBC 12.6 H RBC 4.32 L Hgb 13.1 L Hct 38.9 MCV 90 MCH 30.4 MCHC 33.8 RDW 13.8 Plt Count 206 Seg Neutrophils % 85.9 H Lymphocytes % 9.7 L Monocytes % 3.5 Eosinophils % 0.0 Basophils % 0.9 Absolute Neutrophils 10.8 H Absolute Lymphocytes 1.2 Absolute Monocytes 0.4 Absolute Eosinophils 0.0 Absolute Basophils 0.1 Sodium 142.2 Potassium 5.2 H Chloride 101 Carbon Dioxide 30 Anion Gap 11 BUN 21 H Creatinine 0.71 Est GFR ( Amer) > 60 Est GFR (Non-Af Amer) > 60 Glucose 121 H Calcium 9.4 Impressions: Chest X-Ray 12/01/17 15:59 IMPRESSION: NO ACUTE RADIOGRAPHIC FINDING IN THE CHEST. No interval change since 10/29/[address] 12/01/17 16:57 IMPRESSION: No acute intracranial findings. Right maxillary sinus fluid level. EVIDENCE OF ACUTE STROKE: NO. Carotid Doppler Study 12/02/17 00:00 IMPRESSION: NO HEMODYNAMICALLY SIGNIFICANT STENOSIS. Head MRI 12/02/17 00:00 IMPRESSION: Mild hemispheric small vessel white matter disease, moderate pontine small vessel disease. No acute infarct. No acute intracranial hemorrhage, mass effect, or midline shift. EVIDENCE OF ACUTE STROKE: NO. Assessment & Plan - Diagnosis (1) Acute and chronic respiratory failure with hypoxia Is this a current diagnosis for this admission?: Yes Plan: Patient is now on 3 L of oxygen per minute which is his baseline. He unfortunately has continued to smoke. Will continue IV steroids and begin to taper them tomorrow. Continue IV broad-spectrum antibiotics due to fever and bronchitis-like symptoms. (2) COPD exacerbation Is this a current diagnosis for this admission?: Yes Plan: As above. (3) Acute bronchitis Qualifiers: Bronchitis organism: unspecified organism Qualified Code(s): J20.9 - Acute bronchitis, unspecified Is this a current diagnosis for this admission?: Yes Plan: Culture is pending. He is being covered for possible Haemophilus and strep pneumo (4) Alcohol abuse Is this a current diagnosis for this admission?: Yes Plan: As needed Ativan for withdrawal symptoms (5) Chronic interstitial lung disease Is this a current diagnosis for this admission?: Yes Plan: Continue IV steroids for another 24 hours and then taper (6) Diastolic dysfunction Is this a current diagnosis for this admission?: Yes Plan: Patient is euvolemic at the present time. (7) Tobacco dependence Is this a current diagnosis for this admission?: Yes Plan: Counseled - Time Time Spent with patient: 25-34 minutes Total Critical Time (Minutes): 25 Medications reviewed and adjusted accordingly: Yes Anticipated discharge: Home with Homehealth
[2017-12-03] MEDS: MONTELUKAST SODIUM 10 MG TABLET PO SCH (18:03)
[2017-12-03] MEDS: SIMVASTATIN 10 MG TABLET PO SCH (21:13)
[2017-12-03] MEDS: AZITHROMYCIN 500 MG in DEXTROSE 5%-WATER 250 ML IV SCH (21:15)
[2017-12-03] MEDS: CEFTRIAXONE SODIUM 1,000 MG in DEXTROSE 5%-WATER 50 ML IV SCH (21:17)
[2017-12-04 05:04] LABS: ANION GAP 12 (5-19); BLOOD UREA NITROGEN 17 mg/dL (7-20); CALCIUM 8.5 mg/dL (8.4-10.2); CARBON DIOXIDE 27 mmol/L (22-30); CHLORIDE 102 mmol/L (98-107); GLUCOSE 171 mg/dL (75-110); POTASSIUM 4.5 mmol/L (3.6-5.0); SODIUM 140.8 mmol/L (137-145)
[2017-12-04 05:07] LABS: ABSOLUTE BASOPHILS # (AUTO) 0.1 10^3/uL (0.0-0.2); ABSOLUTE LYMPHOCYTES (AUTO) 1.1 10^3/uL (0.5-4.7); ABSOLUTE MONOCYTES (AUTO) 0.4 10^3/uL (0.1-1.4); ABSOLUTE NEUT (AUTO) 11.1 10^3/uL (1.7-8.2); BASOPHILS % (AUTO) 0.6 % (0-2); HEMATOCRIT 36.3 % (37.9-51.0); HEMOGLOBIN 12.3 g/dL (13.5-17.0); MEAN CORPUSCULAR HEMOGLOBIN 30.7 pg (27.0-33.4); MEAN CORPUSCULAR HGB CONC 33.9 g/dL (32.0-36.0); MEAN CORPUSCULAR VOLUME 91 fl (80-97); MONOCYTES % (AUTO) 3.4 % (3-13); PLATELET COUNT 207 10^3/uL (150-450); RED CELL DISTRIBUTION WIDTH 14.1 % (11.5-14.0); TOTAL CELLS COUNTED % (AUTO) 100 %; WHITE BLOOD COUNT 12.7 10^3/uL (4.0-10.5)
[2017-12-04] MEDS: LANSOPRAZOLE 15 MG TAB.RAP.DR PO SCH (05:34)
[2017-12-04] MEDS: METHYLPREDNISOLONE INJ 40 MG/1 ML SDV IV SCH ×3 (05:35→21:11)
[2017-12-04] MEDS: GABAPENTIN 300 MG CAPSULE PO SCH ×3 (05:35→21:12)
[2017-12-04] MEDS: IPRATROPIUM/ALBUTEROL 0.5-2.5 MG/3 ML AMPUL NEB SCH ×4 (07:59→20:02)
[2017-12-04] MEDS: GUAIFENESIN 600 MG TABLET.SA PO SCH ×2 (09:50→21:13)
[2017-12-04] MEDS: BUSPIRONE HCL 10 MG TABLET PO SCH ×2 (09:50→21:13)
[2017-12-04] MEDS: ASPIRIN 81 MG TABLET, CHEWABLE PO SCH (09:51)
[2017-12-04] MEDS: LACTOBACILLUS ACIDOPHILUS 250 MG TAB PO SCH ×2 (09:51→17:40)
[2017-12-04] MEDS: ENOXAPARIN SODIUM INJ 40 MG/0.4 ML DISP.SYRIN SUBCUT SCH (09:52)
[2017-12-04] MEDS: FLUTICASONE NASAL SPRAY 50 MCG/SPRY 120 SPRAY/16 GM NASL SCH (09:52)
[2017-12-04] MEDS: FUROSEMIDE 20 MG TABLET PO SCH (13:12)
[2017-12-04] MEDS: ALPRAZOLAM 0.25 MG TABLET PO PRN (13:12)
[2017-12-04] MEDS: VENLAFAXINE HCL 75 MG TABLET PO SCH (13:13)
[2017-12-04] MEDS: BUDESONIDE/FORMOTEROL 160-4.5 MCG 60 PUFF/6 GM MDI IH SCH ×2 (13:13→21:14)
--- NOTE | 2017-12-04 17:35 | PDOC PROGRESS REPORT ---
Subjective Progress Note for:: 12/04/17 Subjective:: Patient seen resting in bed. He is awake, alert, oriented 3. He denies any chest pain, shortness breath or dyspnea at rest. He states he has a productive cough. He is no longer wheezing. He does become dyspneic with minimal exertion. He denies any nausea, vomiting or abdominal pain. He denies any significant arthralgias or myalgias. He admits to being anxious. He does not feel the BuSpar he is taking is helped at all. He wants to try something else Remaining review of systems are negative. Reason For Visit: COPD EXACERBATION,POSSIBLE TIA Physical Exam Vital Signs: Temp Pulse Resp BP Pulse Ox 98.1 F 100 16 137/80 H 93 12/04/17 15:21 12/04/17 16:03 12/04/17 16:03 12/04/17 15:21 12/04/17 15:21 Intake & Output 12/03/17 12/04/17 12/05/17 06:59 06:59 06:59 Intake Total 2319 2081 354 Output Total 1225 Balance 1094 2081 354 Weight 83.3 kg 83.6 kg General appearance: PRESENT: no acute distress, disheveled, well-developed, well -nourished Head exam: PRESENT: atraumatic, normocephalic Eye exam: PRESENT: conjunctiva pink, EOMI, PERRLA. ABSENT: scleral icterus Ear exam: PRESENT: normal external ear exam Mouth exam: PRESENT: moist, tongue midline Neck exam: ABSENT: carotid bruit, JVD, lymphadenopathy, thyromegaly Respiratory exam: PRESENT: clear to auscultation abimbola, decreased breath sounds, symmetrical, unlabored Cardiovascular exam: PRESENT: RRR. ABSENT: diastolic murmur, rubs, systolic murmur Pulses: PRESENT: normal carotid pulses, normal radial pulses Vascular exam: PRESENT: normal capillary refill GI/Abdominal exam: PRESENT: normal bowel sounds, soft. ABSENT: distended, guarding, mass, organolmegaly, rebound, tenderness Rectal exam: PRESENT: deferred Extremities exam: PRESENT: full ROM. ABSENT: calf tenderness, clubbing, pedal edema Musculoskeletal exam: PRESENT: ambulatory, full ROM, normal inspection Neurological exam: PRESENT: alert, awake, oriented to person, oriented to place , oriented to time, oriented to situation, CN II-XII grossly intact. ABSENT: motor sensory deficit Psychiatric exam: PRESENT: anxious, normal mood. ABSENT: homicidal ideation, suicidal ideation Skin exam: PRESENT: dry, intact, warm. ABSENT: cyanosis, rash Results Laboratory Results: 12/04/17 04:11 12/04/17 04:11 12/04/17 12/04/17 04:11 04:11 WBC 12.7 H RBC 4.00 L Hgb 12.3 L Hct 36.3 L MCV 91 MCH 30.7 MCHC 33.9 RDW 14.1 H Plt Count 207 Seg Neutrophils % 87.0 H Lymphocytes % 9.0 L Monocytes % 3.4 Eosinophils % 0.0 Basophils % 0.6 Absolute Neutrophils 11.1 H Absolute Lymphocytes 1.1 Absolute Monocytes 0.4 Absolute Eosinophils 0.0 Absolute Basophils 0.1 Sodium 140.8 Potassium 4.5 Chloride 102 Carbon Dioxide 27 Anion Gap 12 BUN 17 Creatinine 0.73 Est GFR ( Amer) > 60 Est GFR (Non-Af Amer) > 60 Glucose 171 H Calcium 8.5 12/02/17 02:30 Clean Catch Midstream Urine Culture - Final NO GROWTH 2 DAYS Impressions: Chest X-Ray 12/01/17 15:59 IMPRESSION: NO ACUTE RADIOGRAPHIC FINDING IN THE CHEST. No interval change since 10/29/[address] 12/01/17 16:57 IMPRESSION: No acute intracranial findings. Right maxillary sinus fluid level. EVIDENCE OF ACUTE STROKE: NO. Carotid Doppler Study 12/02/17 00:00 IMPRESSION: NO HEMODYNAMICALLY SIGNIFICANT STENOSIS. Head MRI 12/02/17 00:00 IMPRESSION: Mild hemispheric small vessel white matter disease, moderate pontine small vessel disease. No acute infarct. No acute intracranial hemorrhage, mass effect, or midline shift. EVIDENCE OF ACUTE STROKE: NO. Assessment & Plan - Diagnosis (1) Acute and chronic respiratory failure with hypoxia Is this a current diagnosis for this admission?: Yes Plan: Patient is now on 3 L of oxygen per minute which is his baseline. He unfortunately has continued to smoke. Will continue IV steroids and begin to taper them tomorrow. Continue IV broad-spectrum antibiotics due to fever and bronchitis-like symptoms. (2) COPD exacerbation Is this a current diagnosis for this admission?: Yes Plan: As above. (3) Acute bronchitis Qualifiers: Bronchitis organism: unspecified organism Qualified Code(s): J20.9 - Acute bronchitis, unspecified Is this a current diagnosis for this admission?: Yes Plan: Culture is pending. He is being covered for possible Haemophilus and strep pneumo (4) Alcohol abuse Is this a current diagnosis for this admission?: Yes Plan: As needed Ativan for withdrawal symptoms (5) Chronic interstitial lung disease Is this a current diagnosis for this admission?: Yes Plan: Continue IV steroids for another 24 hours and then taper (6) Diastolic dysfunction Is this a current diagnosis for this admission?: Yes Plan: Patient is euvolemic at the present time. (7) Tobacco dependence Is this a current diagnosis for this admission?: Yes Plan: Counseled - Time Time Spent with patient: 25-34 minutes Total Critical Time (Minutes): 20 Medications reviewed and adjusted accordingly: Yes Anticipated discharge: Home with Homehealth
[2017-12-04] MEDS: MONTELUKAST SODIUM 10 MG TABLET PO SCH (17:41)
[2017-12-04] MEDS: SIMVASTATIN 10 MG TABLET PO SCH (21:12)
[2017-12-04] MEDS: CEFTRIAXONE SODIUM 1,000 MG in DEXTROSE 5%-WATER 50 ML IV SCH (21:12)
[2017-12-04] MEDS ORDERED: AZITHROMYCIN INJ 500 MG VIAL IV ONE (22:37)
[2017-12-04] MEDS: AZITHROMYCIN 500 MG in DEXTROSE 5%-WATER 250 ML IV SCH (22:55)
[2017-12-05] MEDS: GABAPENTIN 300 MG CAPSULE PO SCH ×3 (06:03→21:18)
[2017-12-05] MEDS: LANSOPRAZOLE 15 MG TAB.RAP.DR PO SCH (06:03)
[2017-12-05] MEDS: IPRATROPIUM/ALBUTEROL 0.5-2.5 MG/3 ML AMPUL NEB SCH ×4 (08:25→20:07)
[2017-12-05] MEDS: LACTOBACILLUS ACIDOPHILUS 250 MG TAB PO SCH ×2 (09:41→17:55)
[2017-12-05] MEDS: BUSPIRONE HCL 10 MG TABLET PO SCH ×2 (09:42→21:17)
[2017-12-05] MEDS: PREDNISONE 20 MG TABLET PO SCH (09:42)
[2017-12-05] MEDS: AZITHROMYCIN 250 MG TABLET PO SCH (09:42)
[2017-12-05] MEDS: GUAIFENESIN 600 MG TABLET.SA PO SCH ×2 (09:42→21:19)
[2017-12-05] MEDS: ENOXAPARIN SODIUM INJ 40 MG/0.4 ML DISP.SYRIN SUBCUT SCH (09:43)
[2017-12-05] MEDS: ASPIRIN 81 MG TABLET, CHEWABLE PO SCH (09:43)
[2017-12-05] MEDS: FUROSEMIDE 20 MG TABLET PO SCH (09:43)
[2017-12-05] MEDS: ALPRAZOLAM 0.25 MG TABLET PO PRN ×2 (09:46→21:18)
[2017-12-05] MEDS: VENLAFAXINE HCL 75 MG TABLET PO SCH (10:37)
[2017-12-05] MEDS: BUDESONIDE/FORMOTEROL 160-4.5 MCG 60 PUFF/6 GM MDI IH SCH ×2 (10:37→21:16)
[2017-12-05] MEDS: FLUTICASONE NASAL SPRAY 50 MCG/SPRY 120 SPRAY/16 GM NASL SCH (10:37)
--- NOTE | 2017-12-05 10:41 | PDOC PROGRESS REPORT ---
Subjective Progress Note for:: 12/05/17 Subjective:: Patient seen resting in bed. He is awake, alert, oriented 3. He denies any chest pain, shortness breath or dyspnea at rest. He states he has a productive cough. He is no longer wheezing. He does become dyspneic with minimal exertion. He denies any nausea, vomiting or abdominal pain. He denies any significant arthralgias or myalgias. He admits to being anxious. He does not feel the BuSpar he is taking is helped at all. He wants to try something else Remaining review of systems are negative. Reason For Visit: COPD EXACERBATION,POSSIBLE TIA Physical Exam Vital Signs: Temp Pulse Resp BP Pulse Ox 97.9 F 82 18 111/68 96 12/05/17 07:53 12/05/17 07:53 12/05/17 07:53 12/05/17 07:53 12/05/17 07:53 Intake & Output 12/04/17 12/05/17 12/06/17 06:59 06:59 06:59 Intake Total 1 1751 Balance 2080 1751 Weight 83.6 kg 84.1 kg General appearance: PRESENT: no acute distress, disheveled, well-developed, well -nourished Head exam: PRESENT: atraumatic, normocephalic Eye exam: PRESENT: conjunctiva pink, EOMI, PERRLA. ABSENT: scleral icterus Ear exam: PRESENT: normal external ear exam Mouth exam: PRESENT: moist, neck supple, tongue midline Teeth exam: PRESENT: poor dentation Neck exam: ABSENT: carotid bruit, JVD, lymphadenopathy, thyromegaly Respiratory exam: PRESENT: decreased breath sounds, rhonchi - bilaterally, symmetrical, unlabored Cardiovascular exam: PRESENT: RRR. ABSENT: diastolic murmur, rubs, systolic murmur Pulses: PRESENT: normal dorsalis pedis pul Vascular exam: PRESENT: normal capillary refill GI/Abdominal exam: PRESENT: normal bowel sounds, soft. ABSENT: distended, guarding, mass, organolmegaly, rebound, tenderness Rectal exam: PRESENT: deferred Extremities exam: PRESENT: full ROM. ABSENT: calf tenderness, clubbing, pedal edema Musculoskeletal exam: PRESENT: ambulatory, full ROM Neurological exam: PRESENT: alert, awake, oriented to person, oriented to place , oriented to time, oriented to situation, CN II-XII grossly intact. ABSENT: motor sensory deficit Psychiatric exam: PRESENT: appropriate affect, normal mood. ABSENT: homicidal ideation, suicidal ideation Skin exam: PRESENT: dry, intact, warm. ABSENT: cyanosis, rash Results Laboratory Results: 12/04/17 04:11 12/04/17 04:11 12/02/17 02:30 Clean Catch Midstream Urine Culture - Final NO GROWTH 2 DAYS Impressions: Chest X-Ray 12/01/17 15:59 IMPRESSION: NO ACUTE RADIOGRAPHIC FINDING IN THE CHEST. No interval change since 10/29/[address] 12/01/17 16:57 IMPRESSION: No acute intracranial findings. Right maxillary sinus fluid level. EVIDENCE OF ACUTE STROKE: NO. Carotid Doppler Study 12/02/17 00:00 IMPRESSION: NO HEMODYNAMICALLY SIGNIFICANT STENOSIS. Head MRI 12/02/17 00:00 IMPRESSION: Mild hemispheric small vessel white matter disease, moderate pontine small vessel disease. No acute infarct. No acute intracranial hemorrhage, mass effect, or midline shift. EVIDENCE OF ACUTE STROKE: NO. Assessment & Plan - Diagnosis (1) Acute and chronic respiratory failure with hypoxia Is this a current diagnosis for this admission?: Yes Plan: Patient is now on 3 L of oxygen per minute which is his baseline. He unfortunately has continued to smoke. He has had upper respiratory infection and bronchitis which caused hypoxemia on oxygen. He is improved with antibiotics and steroids. We will switch steroids to oral, as well as antibiotics today. Will discharge home tomorrow if he remains stable. (2) COPD exacerbation Is this a current diagnosis for this admission?: Yes Plan: As above. (3) Acute bronchitis Qualifiers: Bronchitis organism: unspecified organism Qualified Code(s): J20.9 - Acute bronchitis, unspecified Is this a current diagnosis for this admission?: Yes Plan: Culture is pending. He is being covered for possible Haemophilus and strep pneumo (4) Alcohol abuse Is this a current diagnosis for this admission?: Yes Plan: As needed Ativan for withdrawal symptoms (5) Chronic interstitial lung disease Is this a current diagnosis for this admission?: Yes Plan: Continue IV steroids for another 24 hours and then taper (6) Diastolic dysfunction Is this a current diagnosis for this admission?: Yes Plan: Patient is euvolemic at the present time. (7) Tobacco dependence Is this a current diagnosis for this admission?: Yes Plan: Counseled - Time Time Spent with patient: 25-34 minutes Total Critical Time (Minutes): 20 Smoking Cessation Education: 3 to 10 minutes Medications reviewed and adjusted accordingly: Yes Anticipated discharge: Home with Homehealth Within: within 24 hours - Inpatient Certification Based on my medical assessment, after consideration of the patient's comorbidities, presenting symptoms, or acuity I expect that the services needed warrant INPATIENT care.: Yes I certify that my determination is in accordance with my understanding of Medicare's requirements for reasonable and necessary INPATIENT services [42 CFR 412.3e].: Yes Medical Necessity: Failure to Improve With Outpatient Therapy
[2017-12-05] MEDS: MONTELUKAST SODIUM 10 MG TABLET PO SCH (17:54)
[2017-12-05] MEDS: SIMVASTATIN 10 MG TABLET PO SCH (21:19)
[2017-12-06] MEDS: LANSOPRAZOLE 15 MG TAB.RAP.DR PO SCH (05:18)
[2017-12-06] MEDS: GABAPENTIN 300 MG CAPSULE PO SCH ×3 (05:19→21:12)
[2017-12-06 05:38] LABS: HEMATOCRIT 37.9 % (37.9-51.0); HEMOGLOBIN 12.9 g/dL (13.5-17.0); MEAN CORPUSCULAR HEMOGLOBIN 30.7 pg (27.0-33.4); MEAN CORPUSCULAR HGB CONC 34.1 g/dL (32.0-36.0); MEAN CORPUSCULAR VOLUME 90 fl (80-97); PLATELET COUNT 217 10^3/uL (150-450); WHITE BLOOD COUNT 11.6 10^3/uL (4.0-10.5)
[2017-12-06 05:50] LABS: ANION GAP 7 (5-19); BLOOD UREA NITROGEN 16 mg/dL (7-20); CALCIUM 8.8 mg/dL (8.4-10.2); CARBON DIOXIDE 34 mmol/L (22-30); CHLORIDE 101 mmol/L (98-107); GLUCOSE 103 mg/dL (75-110); PHOSPHORUS 3.8 mg/dL (2.5-4.5); POTASSIUM 3.9 mmol/L (3.6-5.0); SODIUM 142.1 mmol/L (137-145)
[2017-12-06 06:42] LABS: ABSOLUTE LYMPHOCYTES# (MANUAL) 3.7 10^3/uL (0.5-4.7); ABSOLUTE MONOCYTES # (MANUAL) 0.9 10^3/uL (0.1-1.4); BASOPHILS % (MANUAL) 0 % (0-2); EOSINOPHILS % (MANUAL) 0 % (0-6); LYMPHOCYTES % (MANUAL) 32 % (13-45); MONOCYTES % (MANUAL) 8 % (3-13); SEGMENTED NEUTROPHILS % (MAN) 60 % (42-78); TOTAL CELLS COUNTED 100
[2017-12-06 06:43] LABS: ANISOCYTOSIS SLIGHT; HYPOCHROMASIA SLIGHT; PLATELET COMMENT ADEQUATE
[2017-12-06] MEDS: IPRATROPIUM/ALBUTEROL 0.5-2.5 MG/3 ML AMPUL NEB SCH ×4 (08:06→20:05)
[2017-12-06] MEDS: AZITHROMYCIN 250 MG TABLET PO SCH (09:06)
[2017-12-06] MEDS: BUDESONIDE/FORMOTEROL 160-4.5 MCG 60 PUFF/6 GM MDI IH SCH ×2 (09:06→21:11)
[2017-12-06] MEDS: BUSPIRONE HCL 10 MG TABLET PO SCH ×2 (09:07→21:12)
[2017-12-06] MEDS: GUAIFENESIN 600 MG TABLET.SA PO SCH ×2 (09:07→21:11)
[2017-12-06] MEDS: LACTOBACILLUS ACIDOPHILUS 250 MG TAB PO SCH ×2 (09:07→18:06)
[2017-12-06] MEDS: VENLAFAXINE HCL 75 MG TABLET PO SCH (09:07)
[2017-12-06] MEDS: ASPIRIN 81 MG TABLET, CHEWABLE PO SCH (09:08)
[2017-12-06] MEDS: PREDNISONE 20 MG TABLET PO SCH (09:08)
[2017-12-06] MEDS: ENOXAPARIN SODIUM INJ 40 MG/0.4 ML DISP.SYRIN SUBCUT SCH (09:09)
[2017-12-06] MEDS: FLUTICASONE NASAL SPRAY 50 MCG/SPRY 120 SPRAY/16 GM NASL SCH (09:10)
[2017-12-06] MEDS: FUROSEMIDE 20 MG TABLET PO SCH (09:11)
--- NOTE | 2017-12-06 13:38 | PDOC PROGRESS REPORT ---
Subjective Progress Note for:: 12/06/17 Subjective:: Breathing improved though still coughing up sputum Reason For Visit: COPD EXACERBATION,POSSIBLE TIA Physical Exam Vital Signs: Temp Pulse Resp BP Pulse Ox 98.2 F 89 16 120/81 92 12/06/17 10:59 12/06/17 11:28 12/06/17 11:28 12/06/17 10:59 12/06/17 11:28 Intake & Output 12/05/17 12/06/17 12/07/17 06:59 06:59 06:59 Intake Total 1751 1670 787 Balance 1751 1670 787 Weight 84.1 kg 84 kg General appearance: PRESENT: no acute distress, well-developed, well-nourished Head exam: PRESENT: atraumatic, normocephalic Eye exam: PRESENT: conjunctiva pink, EOMI, PERRLA. ABSENT: scleral icterus Ear exam: PRESENT: normal external ear exam Mouth exam: PRESENT: moist, tongue midline Neck exam: ABSENT: carotid bruit, JVD, lymphadenopathy, thyromegaly Respiratory exam: PRESENT: decreased breath sounds, wheezes - scattered. ABSENT : rales, rhonchi Cardiovascular exam: PRESENT: RRR. ABSENT: diastolic murmur, rubs, systolic murmur Pulses: PRESENT: normal dorsalis pedis pul Vascular exam: PRESENT: normal capillary refill GI/Abdominal exam: PRESENT: normal bowel sounds, soft. ABSENT: distended, guarding, mass, organolmegaly, rebound, tenderness Rectal exam: PRESENT: deferred Extremities exam: PRESENT: full ROM. ABSENT: calf tenderness, clubbing, pedal edema Neurological exam: PRESENT: alert, awake, oriented to person, oriented to place , oriented to time, oriented to situation, CN II-XII grossly intact. ABSENT: motor sensory deficit Psychiatric exam: PRESENT: appropriate affect, normal mood. ABSENT: homicidal ideation, suicidal ideation Skin exam: PRESENT: dry, intact, warm. ABSENT: cyanosis, rash Results Laboratory Results: 12/06/17 04:30 12/06/17 04:30 12/06/17 12/06/17 04:30 04:30 WBC 11.6 H RBC 4.20 L Hgb 12.9 L Hct 37.9 MCV 90 MCH 30.7 MCHC 34.1 RDW 14.0 Plt Count 217 Seg Neutrophils % Not Reportable Lymphocytes % Not Reportable Monocytes % Not Reportable Eosinophils % Not Reportable Basophils % Not Reportable Absolute Neutrophils Not Reportable Absolute Lymphocytes Not Reportable Absolute Monocytes Not Reportable Absolute Eosinophils Not Reportable Absolute Basophils Not Reportable Sodium 142.1 Potassium 3.9 Chloride 101 Carbon Dioxide 34 H Anion Gap 7 BUN 16 Creatinine 0.70 Est GFR ( Amer) > 60 Est GFR (Non-Af Amer) > 60 Glucose 103 Calcium 8.8 Phosphorus 3.8 Impressions: Chest X-Ray 12/01/17 15:59 IMPRESSION: NO ACUTE RADIOGRAPHIC FINDING IN THE CHEST. No interval change since 10/29/[address] 12/01/17 16:57 IMPRESSION: No acute intracranial findings. Right maxillary sinus fluid level. EVIDENCE OF ACUTE STROKE: NO. Carotid Doppler Study 12/02/17 00:00 IMPRESSION: NO HEMODYNAMICALLY SIGNIFICANT STENOSIS. Head MRI 12/02/17 00:00 IMPRESSION: Mild hemispheric small vessel white matter disease, moderate pontine small vessel disease. No acute infarct. No acute intracranial hemorrhage, mass effect, or midline shift. EVIDENCE OF ACUTE STROKE: NO. Assessment & Plan - Time Time Spent with patient: 15-24 minutes Medications reviewed and adjusted accordingly: Yes Anticipated discharge: Home Within: within 24 hours - Inpatient Certification Based on my medical assessment, after consideration of the patient's comorbidities, presenting symptoms, or acuity I expect that the services needed warrant INPATIENT care.: Yes Medical Necessity: Need for Nebulizer Therapy and Monitoring of Response - Plan Summary Plan Summary: Acute on chronic respiratoryFailure with hypoxia. Will continue to adjust his steroids and oxygen. #2 COPD exacerbation currently improved. I believe he will benefit from 1 more day of hospitalization prior to discharge. 3. Acute bronchitis multiple antibiotics as appropriate 4. Active alcohol abuse and is currently not in withdrawal 5. Chronic interstitial lung disease 6. Chronic diastolic dysfunction patient is currently euvolemic 7. Tobacco abuse disorder counseling
[2017-12-06] MEDS: MONTELUKAST SODIUM 10 MG TABLET PO SCH (18:06)
[2017-12-06] MEDS: SIMVASTATIN 10 MG TABLET PO SCH (21:11)
[2017-12-07] MEDS: LANSOPRAZOLE 15 MG TAB.RAP.DR PO SCH (05:11)
[2017-12-07] MEDS: GABAPENTIN 300 MG CAPSULE PO SCH (05:11)
[2017-12-07] MEDS: IPRATROPIUM/ALBUTEROL 0.5-2.5 MG/3 ML AMPUL NEB SCH ×2 (08:24→11:38)
[2017-12-07] MEDS ORDERED: PREDNISONE 20 MG TABLET PO SCH (10:00)
--- NOTE | 2017-12-07 10:17 | PDOC DISCHARGE SUMMARY ---
General - Admit/Disc Date/PCP Admission Date/Primary Care Provider: 12/01/17 22:22 JOSSE MORTENSEN MD Discharge Date: 12/07/17 - Discharge Diagnosis (1) Acute and chronic respiratory failure with hypoxia Is this a current diagnosis for this admission?: Yes (2) COPD exacerbation Is this a current diagnosis for this admission?: Yes (3) Acute bronchitis Is this a current diagnosis for this admission?: Yes (4) Tobacco dependence Is this a current diagnosis for this admission?: Yes - Additional Information Discharge Diet: Cardiac Discharge Activity: Activity As Tolerated Prescriptions: Simvastatin [Zocor 10 mg Tablet] 20 mg PO QHS #30 tablet Prednisone [Deltasone 20 mg Tablet] 40 mg PO DAILY #30 tablet Venlafaxine HCl [Effexor 75 mg Tablet] 75 mg PO DAILY #30 tablet Home Medications: Albuterol Sulfate [Ventolin Hfa] 2 puff IH Q6HP PRN 10/16/17 Aspirin 81 mg PO DAILY 10/16/17 Budesonide/Formoterol Fumarate [Symbicort HFA 160-4.5 mcg Inhaler 6 gm] 2 puff IH Q12 10/16/17 Buspirone HCl [Buspar 15 mg Tablet] 15 mg PO Q12 10/16/17 Guaifenesin [Mucinex Sr 600 mg Tablet.sa] 1,200 mg PO Q12 tablet.sa 10/24/17 Ascorbic Acid [Vitamin C] 1,000 mg PO DAILYP PRN 10/27/17 Albuterol Sulfate [Albuterol Sulfate 2.5mg/3 mL] 3 ml IH RTQ4HP PRN #1 vial.neb 11/04/17 Montelukast Sodium [Singulair 10 mg Tablet] 10 mg PO QPM #30 tablet 11/04/17 Dextroamphetamine/Amphetamine [Dextroamp-Amphet ER 20 mg Cap] 20 mg PO DAILY Furosemide 20 mg PO DAILY 12/02/17 Aspirin [Aspirin 81 mg Chewable Tablet] 81 mg PO DAILY tab.chew 12/07/17 Fluticasone Propionate [Flonase Nasal [place] 50 Mcg/[place] 16 gm] 2 spray NASL DAILY spray.pump 12/07/17 Gabapentin [Neurontin 300 mg Capsule] 300 mg PO Q8 capsule 12/07/17 Lactobacillus Acidophilus [Bacid 250 mg Tablet] 500 mg PO BID tab 12/07/17 Prednisone [Deltasone 20 mg Tablet] 40 mg PO DAILY #30 tablet 12/07/17 Simvastatin [Zocor 10 mg Tablet] 20 mg PO QHS #30 tablet 12/07/17 Venlafaxine HCl [Effexor 75 mg Tablet] 75 mg PO DAILY #30 tablet 12/07/17 History of Present Illness Patient complains of: Admitted with difficulty breathing and shortness of breath as well as cough with greenish sputum History of Present Illness: MANI FLYNN is a 67 year old male Hospital Course Hospital Course: Patient was admitted with difficulty breathing and shortness of breath associated with cough with greenish sputum. COPD with prior multiple admissions. He was started on intravenous steroids as well as bronchodilators and empiric antibiotics and patient appeared to respond pretty well to this regimen. His oxygen therapy was continued. He has continued to improve. With minimal difficulties and although he was slightly tachycardic on ambulation this is acceptable considering his lung function. With resolution of his presenting symptoms and hemodynamic stability patient is been discharged home. Physical Exam Vital Signs: Temp Pulse Resp BP Pulse Ox 98.3 F 81 16 115/83 95 12/07/17 08:06 12/07/17 08:24 12/07/17 08:24 12/07/17 08:06 12/07/17 08:24 Intake & Output 12/06/17 12/07/17 12/08/17 06:59 06:59 06:59 Intake Total 1670 2389 Balance 1670 2389 Weight 84 kg 84.3 kg General appearance: PRESENT: no acute distress Head exam: PRESENT: atraumatic Eye exam: PRESENT: conjunctiva pink, EOMI, PERRLA. ABSENT: scleral icterus Neck exam: ABSENT: carotid bruit, JVD, lymphadenopathy, thyromegaly Respiratory exam: PRESENT: decreased breath sounds, rhonchi, unlabored Cardiovascular exam: PRESENT: RRR. ABSENT: diastolic murmur, rubs, systolic murmur GI/Abdominal exam: PRESENT: normal bowel sounds, soft. ABSENT: distended, guarding, mass, organolmegaly, rebound, tenderness Rectal exam: PRESENT: deferred Extremities exam: PRESENT: full ROM. ABSENT: calf tenderness, clubbing, pedal edema Musculoskeletal exam: PRESENT: ambulatory Neurological exam: PRESENT: alert, awake, oriented to person, oriented to place , oriented to time, oriented to situation, CN II-XII grossly intact. ABSENT: motor sensory deficit Results Laboratory Results: 12/06/17 04:30 12/06/17 04:30 Impressions: Chest X-Ray 12/01/17 15:59 IMPRESSION: NO ACUTE RADIOGRAPHIC FINDING IN THE CHEST. No interval change since 10/29/[address] 12/01/17 16:57 IMPRESSION: No acute intracranial findings. Right maxillary sinus fluid level. EVIDENCE OF ACUTE STROKE: NO. Carotid Doppler Study 12/02/17 00:00 IMPRESSION: NO HEMODYNAMICALLY SIGNIFICANT STENOSIS. Head MRI 12/02/17 00:00 IMPRESSION: Mild hemispheric small vessel white matter disease, moderate pontine small vessel disease. No acute infarct. No acute intracranial hemorrhage, mass effect, or midline shift. EVIDENCE OF ACUTE STROKE: NO. Qualifiers - * PATIENT BEING DISCHARGED WITH ANY OF THE FOLLOWING DIAGNOSIS: No Plan Time Spent: Greater than 30 Minutes
[2017-12-07] MEDS: BUSPIRONE HCL 10 MG TABLET PO SCH (10:55)
[2017-12-07] MEDS: ASPIRIN 81 MG TABLET, CHEWABLE PO SCH (10:55)
[2017-12-07] MEDS: FLUTICASONE NASAL SPRAY 50 MCG/SPRY 120 SPRAY/16 GM NASL SCH (10:56)
[2017-12-07] MEDS: VENLAFAXINE HCL 75 MG TABLET PO SCH (10:56)
[2017-12-07] MEDS: LACTOBACILLUS ACIDOPHILUS 250 MG TAB PO SCH (10:56)
[2017-12-07] MEDS: FUROSEMIDE 20 MG TABLET PO SCH (10:56)
[2017-12-07] MEDS: AZITHROMYCIN 250 MG TABLET PO SCH (10:57)
[2017-12-07] MEDS: ENOXAPARIN SODIUM INJ 40 MG/0.4 ML DISP.SYRIN SUBCUT SCH (10:57)
[2017-12-07] MEDS: BUDESONIDE/FORMOTEROL 160-4.5 MCG 60 PUFF/6 GM MDI IH SCH (10:57)
[2017-12-07] MEDS: GUAIFENESIN 600 MG TABLET.SA PO SCH (10:57)
[2017-12-07 11:15] VITALS: BP 109/72
== END 2017-12-07 12:00 | disposition home health service (06) | DRG 189 ==
LOC: ER 15:56 → EH 22:22 → 3N 12-02 01:27
PROVIDERS: ADMIT Family Medicine; ATTEND Family Medicine
DX: J96.21 Acute and chronic respiratory failure with hypoxia (principal); J44.1 Chronic obstructive pulmonary disease with (acute) exacerbation; J84.9 Interstitial pulmonary disease, unspecified; J44.0 Chronic obstructive pulmonary disease with (acute) lower respiratory infection; J20.9 Acute bronchitis, unspecified; E78.00 Pure hypercholesterolemia, unspecified; K21.9 Gastro-esophageal reflux disease without esophagitis; K44.9 Diaphragmatic hernia without obstruction or gangrene; R20.2 Paresthesia of skin; F90.9 Attention-deficit hyperactivity disorder, unspecified type; F17.210 Nicotine dependence, cigarettes, uncomplicated; F10.10 Alcohol abuse, uncomplicated; Y90.9 Presence of alcohol in blood, level not specified; Z79.82 Long term (current) use of aspirin; Z79.51 Long term (current) use of inhaled steroids; Z79.52 Long term (current) use of systemic steroids; Z79.899 Other long term (current) drug therapy
CPT/HCPCS: 36415; 70450; 70551; 71045; 80048; 80053; 80061; 81001; 82803; 83605; 83880; 84100; 85025; 85610; 87040; 87086; 93005; 93010; 93306; 93880; 94640; 94799; 96361; 96365; 96375; 99285; G8978-GP; G8979-GP; G8980-GP; G8987-GO; G8988-GO; G8989-GO; J0456; J0696; J1650; J2060; J2920; J2930; J3490; J7040; J7060; J7512; J7620

== ENCOUNTER 2018-01-27 09:30 | Emergency (ER) | payer MEDICARE ==
[2018-01-27 09:43] VITALS: BP 128/92
[2018-01-27] MEDS ORDERED: PREDNISONE 20 MG TABLET PO ONE (09:46)
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
== END 2018-01-27 10:50 | disposition home or self-care (01) ==
LOC: ER 09:30
DX: J44.9 Chronic obstructive pulmonary disease, unspecified (principal); Z99.81 Dependence on supplemental oxygen; R06.02 Shortness of breath; Z87.891 Personal history of nicotine dependence; Z65.5 Exposure to disaster, war and other hostilities
CPT/HCPCS: 99284

== ENCOUNTER 2018-03-16 18:36 | Inpatient (IN) | payer MEDICARE ==
[2018-03-16] MEDS ORDERED: PREDNISONE 20 MG TABLET PO ONE (19:01)
[2018-03-16] MEDS ORDERED: IPRATROPIUM BROMIDE 0.02% NEB 0.5 MG/2.5 ML AMPUL NEB ONE ×2 (19:01→22:09)
[2018-03-16] MEDS ORDERED: ALBUTEROL SULFATE 0.083% NEB 2.5 MG/3 ML AMPUL NEB ONE ×2 (19:01→22:08)
[2018-03-16 19:24] LABS: ABSOLUTE BASOPHILS # (AUTO) 0.1 10^3/uL (0.0-0.2); ABSOLUTE EOSINOPHILS # (AUTO) 0.1 10^3/uL (0.0-0.6); ABSOLUTE LYMPHOCYTES (AUTO) 2.7 10^3/uL (0.5-4.7); ABSOLUTE MONOCYTES (AUTO) 0.9 10^3/uL (0.1-1.4); ABSOLUTE NEUT (AUTO) 5.4 10^3/uL (1.7-8.2); BASOPHILS % (AUTO) 1.1 % (0-2); EOSINOPHILS % (AUTO) 0.9 % (0-6); MEAN CORPUSCULAR HGB CONC 33.3 g/dL (32.0-36.0); MEAN CORPUSCULAR VOLUME 90 fl (80-97); MONOCYTES % (AUTO) 10.1 % (3-13); PLATELET COUNT 194 10^3/uL (150-450); RED BLOOD COUNT 4.67 10^6/uL (4.35-5.55); RED CELL DISTRIBUTION WIDTH 14.3 % (11.5-14.0); SEGMENTED NEUTROPHILS % (AUTO) 58.9 % (42-78); TOTAL CELLS COUNTED % (AUTO) 100 %; WHITE BLOOD COUNT 9.2 10^3/uL (4.0-10.5)
--- NOTE | 2018-03-16 19:30 | ER Document Report ---
ED General - General Mode of Arrival: Ambulatory Information source: Patient TRAVEL OUTSIDE OF THE [place] IN LAST 30 DAYS: No <STEPHEN MORALES - Last Filed: 03/17/18 03:10> <CHRISSYTOM Negrete - Last Filed: 03/20/18 10:45> - General Chief Complaint: Chest Tightness Stated Complaint: CHEST PAIN Time Seen by Provider: 03/16/18 18:52 Notes: Patient is a 67-year-old male with COPD presents to the emergency department complaining of a COPD exacerbation Patient states that he has had a productive cough with santos sputum the last 3-4 and shortness of breath that has progressively worsened today. Patient states that used his inhaler today but it has not helped his symptoms. He further states that he has had similar symptoms approximately 10 months ago where he had to be admitted. Patient states normally receiving breathing treatments and steroids help his symptoms. Patient's oxygen saturation was 88% on room air in triage. Patient states that he is normally on 3 L oxygen at home. (STEPHEN MORALES) - Related Data Allergies/Adverse Reactions: No Known Allergies Allergy (Verified 03/16/18 18:39) Past Medical History - General Information source: Patient - Social History Smoking Status: Former Smoker Cigarette use (# per day): No Chew tobacco use (# tins/day): No Smoking Education Provided: No Frequency of alcohol use: None Family History: CAD, DM, Hypertension - Past Medical History Cardiac Medical History: Reports: Hx Hypercholesterolemia Pulmonary Medical History: Reports: Hx Asthma, Hx Bronchitis, Hx COPD, Hx Pneumonia, Hx Sleep Apnea Renal/ Medical History: Reports: Hx Kidney Stones GI Medical History: Reports: Hx Gastroesophageal Reflux Disease, Hx Hiatal Hernia, Hx Ulcer Musculoskeletal Medical History: Reports Hx Arthritis Psychiatric Medical History: Reports: Hx Attention Deficit Hyperactivity Disorder, Hx Bipolar Disorder Past Surgical History: Reports: Hx Appendectomy, Hx Cholecystectomy, Hx Genitourinary Surgery - removal of bladder cancer x2, Other - Surgery for bladder cancer - Immunizations Hx Diphtheria, Pertussis, Tetanus Vaccination: Yes Hx Pneumococcal Vaccination: 05/16/11 <STEPHEN MORALES - Last Filed: 03/17/18 03:10> Review of Systems - Review of Systems Constitutional: No symptoms reported EENT: No symptoms reported Cardiovascular: No symptoms reported Respiratory: See HPI Gastrointestinal: No symptoms reported Genitourinary: No symptoms reported Male Genitourinary: No symptoms reported Musculoskeletal: No symptoms reported Skin: No symptoms reported Hematologic/Lymphatic: No symptoms reported Neurological/Psychological: No symptoms reported -: Yes All other systems reviewed and negative <STEPHEN MORALES - Last Filed: 03/17/18 03:10> Physical Exam <STEPHEN MORALES - Last Filed: 03/17/18 03:10> <TOM LOWE Penelope - Last Filed: 03/20/18 10:45> - Vital signs Vitals: Temp Pulse Resp BP Pulse Ox 98.4 F 118 H 20 144/80 H 88 L 03/16/18 18:41 03/16/18 18:41 03/16/18 18:41 03/16/18 18:41 03/16/18 18:41 - Notes Notes: GENERAL: Alert, interacts well. No acute distress. HEAD: Normocephalic, atraumatic. EYES: Pupils equal, round, and reactive to light. Extraocular movements intact. ENT: Oral mucosa moist, tongue midline. NECK: Full range of motion. Supple. Trachea midline. LUNGS: Mild respiratory distress. Appears short of breath, on 3 L of nasal cannula at bedside 95% oxygen saturation. Poor air movement. HEART: Tachycardic. No murmurs, gallops, or rubs. ABDOMEN: Soft, non-tender. Non-distended. Bowel sounds present in all 4 quadrants. EXTREMITIES: Moves all 4 extremities spontaneously. +1 pitting edema to the BLE. NEUROLOGICAL: Alert and oriented x3. Normal speech. PSYCH: Normal affect, normal mood. SKIN: Warm, dry, normal turgor. No rashes or lesions noted. (CARMENSTEPHEN GROVE) Course - Laboratory Result Diagrams: 03/16/18 19:05 03/16/18 19:05 <STEPHEN MORALES - Last Filed: 03/17/18 03:10> - Laboratory Result Diagrams: 03/17/18 05:52 03/18/18 05:33 - Diagnostic Test Radiology reviewed: Image reviewed, Reports reviewed - Bilateral subsegmental atelectasis versus infiltrate - EKG Interpretation by [place] EKG shows normal: Sinus rhythm Rate: Tachycardia Rhythm: NSR When compared to previous EKG there are: No significant change <TOM LOWE - Last Filed: 03/20/18 10:45> - Re-evaluation Re-evalutation: 03/16/18 21:34 Patient rechecked. Coarse breath sounds in the lower lung zones. 03/16/18 22:08 Patient rechecked. Placed on BiPAP. Patient is comfortable. O2 saturation is 97% . Improved air movement. (STEPHEN MORALES) 03/16/18 22:27 Dr. Gannon to accept for COPD exacerbation. Steroids and antibiotics provided in the emergency department. Patient resting comfortably on BiPAP (TOM LOWE) - Vital Signs Vital signs: Temp Pulse Resp BP Pulse Ox 97.6 F 93 20 137/93 H 91 L 03/20/18 08:15 03/20/18 10:04 03/20/18 10:04 03/20/18 08:15 03/20/18 10:18 - Laboratory Laboratory results interpreted by me: 03/16/18 03/16/18 19:05 19:05 RDW 14.3 H Carbon Dioxide 35 H Glucose 132 H ALT 19 L Discharge <STEPHEN MORALES - Last Filed: 03/17/18 03:10> - Discharge Admitting Provider: Jagdeep Unit Admitted: Telemetry <TOM LOWE - Last Filed: 03/20/18 10:45> - Discharge Clinical Impression: COPD with exacerbation Condition: Good Disposition: ADMITTED INPATIENT Scribe Attestation: 03/20/18 10:45 I personally performed the services described in the documentation, reviewed and edited the documentation which was dictated to the scribe in my presence, and it accurately records my words and actions. (TOM LOWE) Scribe Documentation - Scribe Written by Kory:: Kory Dumont, 19:40 03/16/2018 acting as scribe for :: Chrissy <STEPHEN MORALES - Last Filed: 03/17/18 03:10>
[2018-03-16 19:41] LABS: ALANINE AMINOTRANSFERASE 19 U/L (21-72); ALBUMIN 3.7 g/dL (3.5-5.0); ALKALINE PHOSPHATASE 102 U/L (38-126); ANION GAP 9 (5-19); ASPARTATE AMINO TRANSFERASE 22 U/L (17-59); BILIRUBIN,DIRECT 0.2 mg/dL (0.0-0.4); BILIRUBIN,TOTAL 0.4 mg/dL (0.2-1.3); BLOOD UREA NITROGEN 11 mg/dL (7-20); CALCIUM 9.2 mg/dL (8.4-10.2); CARBON DIOXIDE 35 mmol/L (22-30); CHLORIDE 98 mmol/L (98-107); GLUCOSE 132 mg/dL (75-110); TOTAL PROTEIN 6.9 g/dL (6.3-8.2)
--- NOTE | 2018-03-16 19:52 | RADIOLOGY REPORT (SQ) ---
EXAM DESCRIPTION: CHEST SINGLE VIEW COMPLETED DATE/TIME: 03/16/2018 7:23 pm REASON FOR STUDY: SOB COMPARISON: 10/29/2017 TECHNIQUE: Single frontal radiographic view of the chest acquired. NUMBER OF VIEWS: One view. LIMITATIONS: None. FINDINGS: LUNGS AND PLEURA: No pneumothorax. Mild left basilar subsegmental atelectasis. No consol idation or pleural effusion. Similar chronic interstitial changes. MEDIASTINUM AND HILAR STRUCTURES: Stable. HEART AND VASCULAR STRUCTURES: Stable. BONES: No acute findings. HARDWARE: None in the chest. OTHER: No other significant finding. IMPRESSION: Mild left basilar subsegmental atelectasis. No consolidation or pleural effusion. TECHNICAL DOCUMENTATION: JOB ID: [id number] [id number] 2010 [employer]- All Rights Reserved Reading location - IP/workstation name: [employer]
[2018-03-16 19:53] LABS: NT PRO BNP 26 pg/mL (5-900)
[2018-03-16 19:55] LABS: TROPONIN I < 0.012 ng/mL
--- NOTE | 2018-03-16 20:45 | EKG REPORT ---
SEVERITY:- OTHERWISE NORMAL ECG - SINUS TACHYCARDIA BORDERLINE RIGHT AXIS DEVIATION : Confirmed by: Stefany Corona MD 16-Mar-2018 20:44:58
[2018-03-16] MEDS: MAGNESIUM SULFATE/D5W 1 GM/100 ML RTUPB IV SCH ×2 (22:44→23:35)
[2018-03-16] MEDS ORDERED: LEVOFLOXACIN 750 MG/D5W RTU 750 MG/150 ML RTUPB IV ONE (23:00)
[2018-03-16] MEDS ORDERED: LEVOFLOXACIN 750 MG/D5W RTU 750 MG/150 ML RTUPB IV SCH (23:00)
[2018-03-16 23:43] LABS: INTERNATIONAL RATION (INR) 0.93; PROTHROMBIN TIME 12.9 SEC (11.4-15.4)
[2018-03-17] MEDS ORDERED: PROMETHAZINE HCL 25 MG TABLET PO PRN (01:03)
[2018-03-17] MEDS ORDERED: MAG HYDROX/AL HYDROX/SIMETH SUSP 30 ML UDCUP PO PRN (01:03)
[2018-03-17] MEDS ORDERED: PROMETHAZINE HCL INJ 25 MG/1 ML VIAL IV PRN (01:03)
[2018-03-17] MEDS ORDERED: AZITHROMYCIN INJ 500 MG VIAL IV PRN (01:24)
--- NOTE | 2018-03-17 01:42 | PDOC H&P ---
History of Present Illness Admission Date/PCP: 03/16/18 23:42 JOSSE MORTENSEN MD Patient complains of: Shortness of breath History of Present Illness: MANI FLYNN is a 67 year old male with chronic respiratory failure on 3 L oxygen at home, usually oxygen saturation between 92-96% secondary to COPD. Comes to the emergency department complaining of progressive shortness of breath for the last day, to the point that he was gasping for air and was using a fan to help with his breathing, at some point he was saturating 89% on 3 L oxygen nasal cannula. The day before he has been using his nebulizer treatments and inhaler successfully but on they were not working and he started wheezing, having persistent cough with grayish sputum. Denies fever , chills, nausea, vomiting, chest pain, urinary symptoms. Patient quit smoking 2 years ago. Patient is chronically on prednisone, tells me he uses it for 1 month then rest for 2 weeks and to start with prednisone again. When he arrived to the emergency department he was in respiratory distress, chest tightness with poor pulmonary air entry, pulse 118 with a respiratory rate of 28; was placed on BiPAP. Steroids, nebulizer treatments and antibiotics provided in the ED. Past Medical History Cardiac Medical History: Reports: Hyperlipidema Pulmonary Medical History: Reports: Asthma, Bronchitis, Chronic Obstructive Pulmonary Disease (COPD), Pneumonia, Sleep Apnea GI Medical History: Reports: Gastroesophageal Reflux Disease, Hiatal Hernia Musculoskeltal Medical History: Reports: Arthritis Psychiatric Medical History: Reports: Attention Deficit Hyperactivity Disorder, Bipolar Disorder Past Surgical History Past Surgical History: Reports: Appendectomy, Cholecystectomy, Other - Surgery for bladder cancer Social History Smoking Status: Former Smoker - Quit 2 years ago Frequency of Alcohol Use: Heavy Hx Recreational Drug Use: No Drugs: None Hx Prescription Drug Abuse: No Family History Family History: CAD, DM, Hypertension Parental Family History Reviewed: Yes - As above Children Family History Reviewed: NA Sibling(s) Family History Reviewed.: NA Medication/Allergy Home Medications: Albuterol Sulfate [Ventolin Hfa] 2 puff IH Q6HP PRN 10/16/17 Budesonide/Formoterol Fumarate [Symbicort HFA 160-4.5 mcg Inhaler 6 gm] 2 puff IH Q12 10/16/17 Buspirone HCl [Buspar 15 mg Tablet] 15 mg PO Q12 10/16/17 Guaifenesin [Mucinex Sr 600 mg Tablet.sa] 1,200 mg PO Q12 tablet.sa 10/24/17 Ascorbic Acid [Vitamin C] 1,000 mg PO DAILYP PRN 10/27/17 Albuterol Sulfate [Albuterol Sulfate 2.5mg/3 mL] 3 ml IH RTQ4HP PRN #1 vial.neb 11/04/17 Montelukast Sodium [Singulair 10 mg Tablet] 10 mg PO QPM #30 tablet 11/04/17 Furosemide 20 mg PO DAILY 12/02/17 Aspirin [Aspirin 81 mg Chewable Tablet] 81 mg PO DAILY tab.chew 12/07/17 Fluticasone Propionate [Flonase Nasal [place] 50 Mcg/[place] 16 gm] 2 spray NASL DAILY spray.pump 12/07/17 Prednisone [Deltasone 20 mg Tablet] 40 mg PO DAILY #30 tablet 12/07/17 Albuterol Sulfate [Ventolin Hfa] 2 puff IH Q4 03/17/18 Allergies/Adverse Reactions: No Known Allergies Allergy (Verified 03/16/18 18:39) Review of Systems Review of Systems: As outlined in HPI, others negative Physical Exam Vital Signs: Temp Pulse Resp BP Pulse Ox 98.4 F 118 H 28 H 144/80 H 97 03/16/18 18:41 03/16/18 18:41 03/17/18 00:59 03/16/18 18:41 03/17/18 00:59 Intake & Output 03/15/18 03/16/18 03/17/18 06:59 06:59 06:59 Intake Total 100 Balance 100 Additional comments: General appearance: Well-developed, disheveled, alert and cooperative, and appears to be in no acute distress. Wearing BiPAP Head: Normocephalic Eyes: PEERL, EOMI, vision is grossly intact. Ears: External auditory canal and tympanic membranes clear, hearing grossly intact. Nose: No nasal discharge. Throat: Oral cavity and pharynx normal. No inflammation, swelling, exudate or lesions. Neck: Neck supple, nontender without lymphadenopathy, masses or thyromegaly. Cardiac: Normal S1 and S2. No S3, S4 or murmurs. Rhythm is regular. There is no peripheral edema, cyanosis or pallor. Extremities are warm and well perfused. Capillary refill is less than 2 seconds. No carotid bruits. Lungs: Bilateral decreased air entry, diffuse expiratory wheezing, rhonchi and crackles. Not using accessory muscles. Abdomen: Positive bowel sounds. Soft. Nondistended, nontender. No guarding or rebound. No masses. No hepatosplenomegaly Extremities: No significant deformity or joint abnormality. No edema. Peripheral pulses intact. No varicosities. Neurological: Cranial nerves II through XII grossly intact. Strength and sensation symmetric and intact throughout. Reflexes 2+ throughout. Skin: Skin normal color, texture and turgor with no lesions or eruptions, warm and dry. Psychiatric: The mental examination revealed the patient was oriented to person , place, and time. The patient was able to demonstrate good judgment on recent , without hallucinations, abnormal affect or abnormal behaviors. Results Laboratory Results: 03/16/18 03/16/18 03/16/18 19:05 19:05 19:05 WBC 9.2 RBC 4.67 Hgb 14.0 Hct 42.0 MCV 90 MCH 30.0 MCHC 33.3 RDW 14.3 H Plt Count 194 Seg Neutrophils % 58.9 Lymphocytes % 29.0 Monocytes % 10.1 Eosinophils % 0.9 Basophils % 1.1 Absolute Neutrophils 5.4 Absolute Lymphocytes 2.7 Absolute Monocytes 0.9 Absolute Eosinophils 0.1 Absolute Basophils 0.1 PT INR Sodium 142.0 Potassium 4.0 Chloride 98 Carbon Dioxide 35 H Anion Gap 9 BUN 11 Creatinine 0.85 Est GFR ( Amer) > 60 Est GFR (Non-Af Amer) > 60 Glucose 132 H Calcium 9.2 Magnesium 1.9 Total Bilirubin 0.4 Direct Bilirubin 0.2 AST 22 ALT 19 L Alkaline Phosphatase 102 Troponin I < 0.012 NT-Pro-B Natriuret Pep 26 Total Protein 6.9 Albumin 3.7 03/16/18 23:28 WBC RBC Hgb Hct MCV MCH MCHC RDW Plt Count Seg Neutrophils % Lymphocytes % Monocytes % Eosinophils % Basophils % Absolute Neutrophils Absolute Lymphocytes Absolute Monocytes Absolute Eosinophils Absolute Basophils PT 12.9 INR 0.93 Sodium Potassium Chloride Carbon Dioxide Anion Gap BUN Creatinine Est GFR ( Amer) Est GFR (Non-Af Amer) Glucose Calcium Magnesium Total Bilirubin Direct Bilirubin AST ALT Alkaline Phosphatase Troponin I NT-Pro-B Natriuret Pep Total Protein Albumin Impressions: Chest X-Ray 11/01/18 18:54 IMPRESSION: Mild left basilar subsegmental atelectasis. No consolidation or pleural effusion. Assessment & Plan - Diagnosis (1) Acute and chronic respiratory failure with hypoxia Is this a current diagnosis for this admission?: Yes Plan: Patient with chronic respiratory failure on 3 liters oxygen at home, comes with progressive shortness of breath with hypoxia for 2 days, at some point his oxygen saturation was 89% on 3 L and his nebulizer treatments and inhalers were not working. Currently on BiPAP. (2) COPD with exacerbation Is this a current diagnosis for this admission?: Yes Plan: We will keep the patient under telemetry monitoring, BiPAP overnight, Solu- Medrol 80 mg every 8 hours, RT consult, IV azithromycin, incentive spirometry. Please follow a sputum and blood culture. CT chest so far negative for infiltrates. Patient is chronic steroid dependent. (3) DVT prophylaxis Is this a current diagnosis for this admission?: Yes Plan: Lovenox - Time Time Spent: 50 to 70 Minutes - Inpatient Certification Based on my medical assessment, after consideration of the patient's comorbidities, presenting symptoms, or acuity I expect that the services needed warrant INPATIENT care.: Yes I certify that my determination is in accordance with my understanding of Medicare's requirements for reasonable and necessary INPATIENT services [42 CFR 412.3e].: Yes Medical Necessity: Risk of Complication if Not Cared For in Hospital - Plan Summary Plan Summary: Plan discussed with patient, agrees with it.
[2018-03-17] MEDS: IPRATROPIUM/ALBUTEROL 0.5-2.5 MG/3 ML AMPUL NEB SCH ×6 (02:01→20:39)
[2018-03-17] MEDS ORDERED: AZITHROMYCIN INJ 500 MG VIAL IV ONE (04:32)
[2018-03-17] MEDS: ENOXAPARIN SODIUM INJ 40 MG/0.4 ML DISP.SYRIN SUBCUT SCH (05:48)
[2018-03-17] MEDS: AZITHROMYCIN 500 MG in DEXTROSE 5%-WATER 250 ML IV SCH (05:48)
[2018-03-17] MEDS: METHYLPREDNISOLONE INJ 125 MG/2 ML SDV IV SCH ×3 (05:49→21:40)
[2018-03-17 06:20] LABS: HEMATOCRIT 41.4 % (37.9-51.0); HEMOGLOBIN 13.9 g/dL (13.5-17.0); MEAN CORPUSCULAR HEMOGLOBIN 30.5 pg (27.0-33.4); MEAN CORPUSCULAR HGB CONC 33.5 g/dL (32.0-36.0); MEAN CORPUSCULAR VOLUME 91 fl (80-97); PLATELET COUNT 166 10^3/uL (150-450); RED BLOOD COUNT 4.55 10^6/uL (4.35-5.55); RED CELL DISTRIBUTION WIDTH 14.2 % (11.5-14.0)
[2018-03-17 06:40] LABS: ANION GAP 15 (5-19); BLOOD UREA NITROGEN 10 mg/dL (7-20); CALCIUM 9.7 mg/dL (8.4-10.2); CARBON DIOXIDE 28 mmol/L (22-30); CHLORIDE 99 mmol/L (98-107); GLUCOSE 162 mg/dL (75-110); PHOSPHORUS 3.4 mg/dL (2.5-4.5); POTASSIUM 4.8 mmol/L (3.6-5.0); SODIUM 141.9 mmol/L (137-145)
[2018-03-17 06:58] LABS: ARTERIAL BLOOD BASE EXCESS 2.6 mmol/L; ARTERIAL BLOOD HCO3 27.5 mmol/L (20-24); ARTERIAL BLOOD O2 SATURATION 95.2 % (94-98); ARTERIAL BLOOD PCO2 43.3 mmHg (35-45); ARTERIAL BLOOD PH 7.42 (7.35-7.45); ARTERIAL BLOOD PO2 74.7 mmHg (80-100); ARTERIAL BLOOD TOTAL CO2 28.8 mmol/L (23-27)
[2018-03-17 06:59] LABS: ARTERIAL BLOOD FIO2 3L
[2018-03-17] MEDS: FUROSEMIDE 20 MG TABLET PO SCH (09:52)
[2018-03-17] MEDS: ASCORBIC ACID 500 MG TABLET PO SCH (09:52)
[2018-03-17] MEDS: BUSPIRONE HCL 10 MG TABLET PO SCH ×2 (09:52→21:41)
[2018-03-17] MEDS: GUAIFENESIN 600 MG TABLET.SA PO SCH ×2 (09:54→21:41)
[2018-03-17] MEDS: ASPIRIN 81 MG TABLET, CHEWABLE PO SCH (09:54)
[2018-03-17] MEDS ORDERED: BUDESONIDE/FORMOTEROL 160-4.5 MCG 60 PUFF/6 GM MDI IH SCH (10:00)
[2018-03-17] MEDS: FLUTICASONE NASAL SPRAY 50 MCG/SPRY 120 SPRAY/16 GM NASL SCH (10:33)
[2018-03-17] MEDS: MONTELUKAST SODIUM 10 MG TABLET PO SCH (17:14)
--- NOTE | 2018-03-17 18:20 | PDOC PROGRESS REPORT ---
Subjective Progress Note for:: 03/17/18 Subjective:: The patient is currently on BiPAP and feels better. Reports that he does not have BiPAP at home. He is not short of breath. His breathing does not appear to be labored. By his report he seems to be back at baseline. Reason For Visit: COPD EXACERBATION Physical Exam Vital Signs: Temp Pulse Resp BP Pulse Ox 97.9 F 98 22 H 116/72 97 03/17/18 15:34 03/17/18 15:34 03/17/18 15:34 03/17/18 15:34 03/17/18 15:34 Intake & Output 03/16/18 03/17/18 03/18/18 06:59 06:59 06:59 Intake Total 100 355 Balance 100 355 Weight 84.2 kg General appearance: PRESENT: no acute distress, cooperative, obese, well- developed Head exam: PRESENT: atraumatic, normocephalic Eye exam: PRESENT: conjunctiva pink, EOMI. ABSENT: scleral icterus Ear exam: PRESENT: normal external ear exam Mouth exam: PRESENT: moist, neck supple Neck exam: ABSENT: carotid bruit, JVD, lymphadenopathy Respiratory exam: PRESENT: clear to auscultation abimbola, prolonged expiratory phas , symmetrical. ABSENT: rales, rhonchi, wheezes Cardiovascular exam: PRESENT: RRR, +S1, +S2 GI/Abdominal exam: PRESENT: normal bowel sounds, soft. ABSENT: distended, tenderness Extremities exam: PRESENT: full ROM, pedal edema - Trace. ABSENT: calf tenderness Neurological exam: PRESENT: alert, awake, oriented to person, oriented to place , oriented to situation Psychiatric exam: PRESENT: appropriate affect, normal mood. ABSENT: agitated, anxious Skin exam: PRESENT: dry, normal color, warm. ABSENT: mottled Results Laboratory Results: 03/17/18 05:52 03/17/18 05:52 03/17/18 03/17/18 03/17/18 05:52 05:52 06:45 WBC 6.0 RBC 4.55 Hgb 13.9 Hct 41.4 MCV 91 MCH 30.5 MCHC 33.5 RDW 14.2 H Plt Count 166 Carbonic Acid 1.30 HCO3/H2CO3 Ratio 21:1 ABG pH 7.42 ABG pCO2 43.3 ABG pO2 74.7 L ABG HCO3 27.5 H ABG O2 Saturation 95.2 ABG Base Excess 2.6 FiO2 3L Sodium 141.9 Potassium 4.8 Chloride 99 Carbon Dioxide 28 Anion Gap 15 BUN 10 Creatinine 0.82 Est GFR ( Amer) > 60 Est GFR (Non-Af Amer) > 60 Glucose 162 H Calcium 9.7 Phosphorus 3.4 Impressions: Chest X-Ray 03/16/18 18:54 IMPRESSION: Mild left basilar subsegmental atelectasis. No consolidation or pleural effusion. Assessment & Plan - Diagnosis (1) COPD with exacerbation Is this a current diagnosis for this admission?: Yes Plan: The patient is definitely improved with BiPAP. He reports that he does not use BiPAP at home. I reduce the DuoNeb nebulizer treatments to every 6 hours with treatments available every 3 hours if needed. In addition I initiated budesonide nebulizer therapy twice daily. I will restart his outpatient inhaler therapy likely in the next day or 2. His PCO2 remains high but his baseline is most likely 70. We are going to try his BiPAP on room air. He does use 3 L nasal cannula oxygen at home normally. He may be a good candidate for BiPAP at home and I believe Dr. Mcdaniel is spearheading this effort. Because I initiated the budesonide therapy I am decreasing his Solu-Medrol. (2) Pneumonia Qualifiers: Pneumonia type: due to unspecified organism Laterality: left Lung location: lower lobe of lung Qualified Code(s): J18.1 - Lobar pneumonia, unspecified organism Is this a current diagnosis for this admission?: Yes Plan: Chest x-ray revealed possible consolidation at the left base. We will continue his levofloxacin and azithromycin at this time. As noted above he reports feeling better. - Time Time Spent with patient: 25-34 minutes Medications reviewed and adjusted accordingly: Yes Anticipated discharge: Home
[2018-03-17] MEDS: BUDESONIDE NEB 0.5 MG/2 ML AMPUL NEB SCH (20:39)
[2018-03-17] MEDS: LEVOFLOXACIN 750 MG/D5W RTU 750 MG/150 ML RTUPB IV SCH (21:50)
[2018-03-18] MEDS: IPRATROPIUM/ALBUTEROL 0.5-2.5 MG/3 ML AMPUL NEB SCH ×4 (02:14→20:40)
[2018-03-18] MEDS: ENOXAPARIN SODIUM INJ 40 MG/0.4 ML DISP.SYRIN SUBCUT SCH (05:16)
[2018-03-18] MEDS: AZITHROMYCIN 500 MG in DEXTROSE 5%-WATER 250 ML IV SCH (05:16)
[2018-03-18 06:30] LABS: ANION GAP 12 (5-19); BLOOD UREA NITROGEN 19 mg/dL (7-20); CALCIUM 9.6 mg/dL (8.4-10.2); CARBON DIOXIDE 29 mmol/L (22-30); CHLORIDE 102 mmol/L (98-107); GLUCOSE 150 mg/dL (75-110); POTASSIUM 4.5 mmol/L (3.6-5.0); SODIUM 142.8 mmol/L (137-145)
[2018-03-18 07:02] LABS: ARTERIAL BLOOD BASE EXCESS 0.8 mmol/L; ARTERIAL BLOOD H2CO3 1.11 mmol/L (1.05-1.35); ARTERIAL BLOOD HCO3 24.7 mmol/L (20-24); ARTERIAL BLOOD O2 SATURATION 96.7 % (94-98); ARTERIAL BLOOD PCO2 36.8 mmHg (35-45); ARTERIAL BLOOD PH 7.44 (7.35-7.45); ARTERIAL BLOOD PO2 83.9 mmHg (80-100); ARTERIAL BLOOD TOTAL CO2 25.8 mmol/L (23-27)
[2018-03-18 07:04] LABS: ARTERIAL BLOOD FIO2 32%
[2018-03-18] MEDS: BUDESONIDE NEB 0.5 MG/2 ML AMPUL NEB SCH ×2 (08:40→20:40)
[2018-03-18] MEDS: FLUTICASONE NASAL SPRAY 50 MCG/SPRY 120 SPRAY/16 GM NASL SCH (10:52)
[2018-03-18] MEDS: METHYLPREDNISOLONE INJ 125 MG/2 ML SDV IV SCH ×2 (10:52→21:10)
[2018-03-18] MEDS: ACETAMINOPHEN 325 MG TABLET PO PRN ×2 (10:52→15:29)
[2018-03-18] MEDS: FUROSEMIDE 20 MG TABLET PO SCH (10:53)
[2018-03-18] MEDS: ASCORBIC ACID 500 MG TABLET PO SCH (10:53)
[2018-03-18] MEDS: BUSPIRONE HCL 10 MG TABLET PO SCH ×2 (10:53→21:10)
[2018-03-18] MEDS: ASPIRIN 81 MG TABLET, CHEWABLE PO SCH (10:53)
[2018-03-18] MEDS: GUAIFENESIN 600 MG TABLET.SA PO SCH ×2 (10:53→21:10)
--- NOTE | 2018-03-18 14:33 | PDOC PROGRESS REPORT ---
Subjective Progress Note for:: 03/18/18 Subjective:: Patient is resting comfortably currently. He has noticed increased swelling in his legs. He has been on diuretics in the past. Reason For Visit: COPD EXACERBATION Physical Exam Vital Signs: Temp Pulse Resp BP Pulse Ox 98.5 F 81 22 H 106/78 95 03/18/18 12:01 03/18/18 12:01 03/18/18 12:01 03/18/18 12:01 03/18/18 12:01 Intake & Output 03/17/18 03/18/18 03/19/18 06:59 06:59 05:59 Intake Total 350 2020 818 Balance 350 2020 818 Weight 84.2 kg 86.4 kg General appearance: PRESENT: no acute distress, cooperative, obese, well- nourished Head exam: PRESENT: atraumatic, normocephalic Eye exam: PRESENT: conjunctiva pink, EOMI. ABSENT: scleral icterus Ear exam: PRESENT: normal external ear exam Mouth exam: PRESENT: moist Neck exam: PRESENT: full ROM. ABSENT: carotid bruit, JVD, lymphadenopathy Respiratory exam: PRESENT: prolonged expiratory phas, rales - Faint at bases, wheezes - Intermittent faint inspiratory wheezes on the left Cardiovascular exam: PRESENT: RRR, +S1, +S2 GI/Abdominal exam: PRESENT: normal bowel sounds, soft. ABSENT: distended, tenderness Extremities exam: PRESENT: other - 3+ edema bilateral lower extremities Neurological exam: PRESENT: alert, awake, oriented to person, oriented to place , oriented to situation Psychiatric exam: PRESENT: appropriate affect, normal mood Skin exam: PRESENT: dry, intact, warm. ABSENT: cyanosis, rash Results Laboratory Results: 03/17/18 05:52 03/18/18 05:33 03/18/18 03/18/18 05:33 06:30 Carbonic Acid 1.11 HCO3/H2CO3 Ratio 22:1 ABG pH 7.44 ABG pCO2 36.8 ABG pO2 83.9 ABG HCO3 24.7 H ABG O2 Saturation 96.7 ABG Base Excess 0.8 FiO2 32% Sodium 142.8 Potassium 4.5 Chloride 102 Carbon Dioxide 29 Anion Gap 12 BUN 19 Creatinine 0.90 Est GFR ( Amer) > 60 Est GFR (Non-Af Amer) > 60 Glucose 150 H Calcium 9.6 Impressions: Chest X-Ray 03/16/18 18:54 IMPRESSION: Mild left basilar subsegmental atelectasis. No consolidation or pleural effusion. Assessment & Plan - Diagnosis (1) COPD with exacerbation Is this a current diagnosis for this admission?: Yes Plan: The patient is definitely improved with BiPAP. He reports that he does not use BiPAP at home. I reduce the DuoNeb nebulizer treatments to every 6 hours with treatments available every 3 hours if needed. In addition I initiated budesonide nebulizer therapy twice daily. I will restart his outpatient inhaler therapy likely in the next day or 2. His PCO2 remains high but his baseline is most likely 70. We are going to try his BiPAP on room air. He does use 3 L nasal cannula oxygen at home normally. He may be a good candidate for BiPAP at home and I believe Dr. Mcdaniel is spearheading this effort. Because I initiated the budesonide therapy I am decreasing his Solu-Medrol. 03/18/2018-the patient still has intermittent scattered wheezes. I will keep his steroid dose the same as well as his inhaler regimen. The patient would likely benefit from BiPAP at home. I will work with case management regarding this issue. It sounds like he needs a revision and education with regard to his home medication regimen. (2) Pneumonia Qualifiers: Pneumonia type: due to unspecified organism Laterality: left Lung location: lower lobe of lung Qualified Code(s): J18.1 - Lobar pneumonia, unspecified organism Is this a current diagnosis for this admission?: Yes Plan: Chest x-ray revealed possible consolidation at the left base. We will continue his levofloxacin and azithromycin at this time. As noted above he reports feeling better. 03/18/2018-the patient will complete his antibiotic therapy as ordered. (3) Edema Qualifiers: Edema type: unspecified Qualified Code(s): R60.9 - Edema, unspecified Is this a current diagnosis for this admission?: Yes Plan: 03/18/2018-the patient has 3+ edema in both legs. He states that he had been on a diuretic in the past. He states that he has had edema. There is a history of diastolic failure. I believe his last echocardiogram was 1 year ago. I will start the patient on furosemide today and monitor his electrolytes. I will try and investigate further with regard to the etiology. - Time Time Spent with patient: 25-34 minutes Medications reviewed and adjusted accordingly: Yes
[2018-03-18] MEDS: MONTELUKAST SODIUM 10 MG TABLET PO SCH (17:28)
[2018-03-18] MEDS: LEVOFLOXACIN 750 MG/D5W RTU 750 MG/150 ML RTUPB IV SCH (21:10)
[2018-03-19] MEDS: IPRATROPIUM/ALBUTEROL 0.5-2.5 MG/3 ML AMPUL NEB SCH ×4 (01:21→20:14)
[2018-03-19] MEDS: ENOXAPARIN SODIUM INJ 40 MG/0.4 ML DISP.SYRIN SUBCUT SCH (05:31)
[2018-03-19] MEDS: AZITHROMYCIN 500 MG in DEXTROSE 5%-WATER 250 ML IV SCH (05:32)
[2018-03-19] MEDS: BUDESONIDE NEB 0.5 MG/2 ML AMPUL NEB SCH ×2 (08:31→20:14)
[2018-03-19] MEDS: GUAIFENESIN 600 MG TABLET.SA PO SCH ×2 (09:21→21:20)
[2018-03-19] MEDS: FUROSEMIDE 20 MG TABLET PO SCH (09:21)
[2018-03-19] MEDS: BUSPIRONE HCL 10 MG TABLET PO SCH ×2 (09:22→21:20)
[2018-03-19] MEDS: ASPIRIN 81 MG TABLET, CHEWABLE PO SCH (09:22)
[2018-03-19] MEDS: ASCORBIC ACID 500 MG TABLET PO SCH (09:22)
[2018-03-19] MEDS: FLUTICASONE NASAL SPRAY 50 MCG/SPRY 120 SPRAY/16 GM NASL SCH (09:22)
[2018-03-19] MEDS: METHYLPREDNISOLONE INJ 125 MG/2 ML SDV IV SCH ×2 (09:22→21:20)
--- NOTE | 2018-03-19 14:59 | PDOC PROGRESS REPORT ---
Subjective Progress Note for:: 03/19/18 Subjective:: The patient is feeling exceptionally anxious today. He is quite tachypneic. Reason For Visit: COPD EXACERBATION Physical Exam Vital Signs: Temp Pulse Resp BP Pulse Ox 97.5 F 77 21 H 142/68 H 94 03/19/18 13:15 03/19/18 14:00 03/19/18 14:00 03/19/18 13:15 03/19/18 14:00 Intake & Output 03/18/18 03/19/18 03/20/18 07:59 06:59 06:59 Intake Total Balance Weight General appearance: PRESENT: cooperative, mild distress, morbidly obese, well- developed Head exam: PRESENT: atraumatic, normocephalic Neck exam: ABSENT: JVD, lymphadenopathy Respiratory exam: PRESENT: clear to auscultation abimbola, symmetrical, tachypnea. ABSENT: wheezes Cardiovascular exam: PRESENT: RRR, +S1, +S2 GI/Abdominal exam: PRESENT: distended, normal bowel sounds, soft. ABSENT: tenderness Extremities exam: PRESENT: +2 edema. ABSENT: calf tenderness Neurological exam: PRESENT: oriented to person, oriented to place, oriented to situation Psychiatric exam: PRESENT: anxious Focused psych exam: PRESENT: restlessness Skin exam: PRESENT: dry, intact, warm. ABSENT: cyanosis, rash Results Laboratory Results: 03/17/18 05:52 03/18/18 05:33 Impressions: Chest X-Ray 03/16/18 18:54 IMPRESSION: Mild left basilar subsegmental atelectasis. No consolidation or pleural effusion. Assessment & Plan - Diagnosis (1) COPD with exacerbation Is this a current diagnosis for this admission?: Yes Plan: The patient is definitely improved with BiPAP. He reports that he does not use BiPAP at home. I reduce the DuoNeb nebulizer treatments to every 6 hours with treatments available every 3 hours if needed. In addition I initiated budesonide nebulizer therapy twice daily. I will restart his outpatient inhaler therapy likely in the next day or 2. His PCO2 remains high but his baseline is most likely 70. We are going to try his BiPAP on room air. He does use 3 L nasal cannula oxygen at home normally. He may be a good candidate for BiPAP at home and I believe Dr. Mcdaniel is spearheading this effort. Because I initiated the budesonide therapy I am decreasing his Solu-Medrol. 03/18/2018-the patient still has intermittent scattered wheezes. I will keep his steroid dose the same as well as his inhaler regimen. The patient would likely benefit from BiPAP at home. I will work with case management regarding this issue. It sounds like he needs a revision and education with regard to his home medication regimen. 03/19/2018-the patient is exceptionally tachypneic. It is more due to anxiety than anything. His blood gas today is improved. His PCO2 is actually closing in on normal. We will continue his current regimen at this time. (2) Pneumonia Qualifiers: Pneumonia type: due to unspecified organism Laterality: left Lung location: lower lobe of lung Qualified Code(s): J18.1 - Lobar pneumonia, unspecified organism Is this a current diagnosis for this admission?: Yes Plan: Chest x-ray revealed possible consolidation at the left base. We will continue his levofloxacin and azithromycin at this time. As noted above he reports feeling better. 03/18/2018-the patient will complete his antibiotic therapy as ordered. 03/19/2018-continue Levaquin and Zithromax as ordered. (3) Edema Qualifiers: Edema type: unspecified Qualified Code(s): R60.9 - Edema, unspecified Is this a current diagnosis for this admission?: Yes Plan: 03/18/2018-the patient has 3+ edema in both legs. He states that he had been on a diuretic in the past. He states that he has had edema. There is a history of diastolic failure. I believe his last echocardiogram was 1 year ago. I will start the patient on furosemide today and monitor his electrolytes. I will try and investigate further with regard to the etiology. 03/19/2018-I am going to increase the patient's furosemide 40 mg daily and monitor his intake and output. He has continued to have a positive fluid balance. (4) Anxiety and depression Is this a current diagnosis for this admission?: Yes Plan: 03/19/2018-based on previous medications the patient appears to have a history of bipolar disorder, ADHD and anxiety. He is currently on BuSpar. We will give him 10 mg now and increase his daily dose to 20 mg twice daily (maximum dose 60 mg/day). In addition I have started sertraline 50 mg at bedtime. - Time Time Spent with patient: 25-34 minutes Medications reviewed and adjusted accordingly: Yes - Plan Summary Plan Summary: As above
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
[2018-03-19] MEDS ORDERED: BUSPIRONE HCL 10 MG TABLET PO ONE (15:30)
[2018-03-19] MEDS ORDERED: KETOROLAC TROMETHAMINE 60 MG/2 ML SDV IM ONE (16:00)
[2018-03-19] MEDS: MONTELUKAST SODIUM 10 MG TABLET PO SCH (17:28)
[2018-03-19] MEDS ORDERED: FUROSEMIDE INJ/PF 20 MG/2 ML SDV IV ONE (20:30)
[2018-03-19] MEDS: LEVOFLOXACIN 750 MG/D5W RTU 750 MG/150 ML RTUPB IV SCH (21:20)
[2018-03-19] MEDS ORDERED: SERTRALINE HCL 50 MG TABLET PO PRN (22:00)
[2018-03-20] MEDS: IPRATROPIUM/ALBUTEROL 0.5-2.5 MG/3 ML AMPUL NEB SCH ×4 (02:14→20:59)
[2018-03-20] MEDS: AZITHROMYCIN 500 MG in DEXTROSE 5%-WATER 250 ML IV SCH (05:17)
[2018-03-20] MEDS: ENOXAPARIN SODIUM INJ 40 MG/0.4 ML DISP.SYRIN SUBCUT SCH (05:17)
[2018-03-20] MEDS: BUDESONIDE NEB 0.5 MG/2 ML AMPUL NEB SCH ×2 (07:53→20:59)
[2018-03-20] MEDS: ASPIRIN 81 MG TABLET, CHEWABLE PO SCH (09:31)
[2018-03-20] MEDS: GUAIFENESIN 600 MG TABLET.SA PO SCH ×2 (09:32→21:25)
[2018-03-20] MEDS: ASCORBIC ACID 500 MG TABLET PO SCH (09:33)
[2018-03-20] MEDS: METHYLPREDNISOLONE INJ 125 MG/2 ML SDV IV SCH ×2 (09:34→21:29)
[2018-03-20] MEDS: BUSPIRONE HCL 10 MG TABLET PO SCH ×2 (09:34→21:25)
[2018-03-20] MEDS: FLUTICASONE NASAL SPRAY 50 MCG/SPRY 120 SPRAY/16 GM NASL SCH (09:36)
[2018-03-20] MEDS: FUROSEMIDE 20 MG TABLET PO SCH (09:40)
[2018-03-20] MEDS: IPRATROPIUM/ALBUTEROL 0.5-2.5 MG/3 ML AMPUL NEB PRN (10:04)
--- NOTE | 2018-03-20 15:26 | Pulmonary Function Test ---
Pulmonary Function Test Date of Procedure:: 03/20/18 INDICATION:: Dyspnea Referring Provider: - Report Spirometry: FVC 2.19 L 50% postbronchodilator 2.24 L 51% FEV1 1.14 L 33% postbronchodilator 1.33 L 38% FEV1/FVC % 52 postbronchodilator 59 predicted 80 FEF 25-75% 0.96 L 28% postbronchodilator 0.90 L 26% Impression: Moderate obstructive ventilatory defect with insignificant response of bronchodilator therapy. This in and of itself does not preclude a clinical trial of bronchodilator therapy restrictive defect is implied but cannot be diagnosed on the basis of spirometry alone. (Restrictive defect may mask the degree of obstruction). Obstructive defect has not changed significantly since spirometry of 2015
[2018-03-20] MEDS: MONTELUKAST SODIUM 10 MG TABLET PO SCH (17:29)
--- NOTE | 2018-03-20 19:22 | PDOC PROGRESS REPORT ---
Subjective Progress Note for:: 03/20/18 Subjective:: The patient is feeling exceptionally anxious today. He is quite tachypneic. 03/20/2018-patient actually appears extremely comfortable. He is not anxious. He is breathing on nasal cannula and he is not tachypneic. His sister is visiting. Reason For Visit: COPD EXACERBATION Physical Exam Vital Signs: Temp Pulse Resp BP Pulse Ox 98.2 F 87 20 128/78 H 95 03/20/18 16:20 03/20/18 16:20 03/20/18 16:20 03/20/18 16:20 03/20/18 16:20 Pulse Oximeter Nocturnal Start: 03/20/18 09: 20 Freq: RTQ4 Status: Active Document 03/20/18 10:18 TPO (Rec: 03/20/18 10:18 TPO [email or web address]) Nocturnal Pulse Oximetry Equipment Usage Initial Set Up Nocturnal Spo2 Charge Charge Now Oxygen Delivery Method (includes room Nasal Cannula air) O2 Sat by Pulse Oximetry (92-100) 91 Continuous Pulse Oximeter Set Up Yes Continuous SpO2 Discontinued No Continuous SpO2 Machine # 11 Intake & Output 03/19/18 03/20/18 03/21/18 06:59 06:59 06:59 Intake Total 1180 1963 Output Total 500 1300 Balance 680 663 Weight 85.6 kg General appearance: PRESENT: no acute distress, cooperative, obese, well- nourished Head exam: PRESENT: atraumatic, normocephalic Eye exam: PRESENT: conjunctiva pink. ABSENT: periorbital swelling, scleral icterus Ear exam: PRESENT: normal external ear exam Mouth exam: PRESENT: moist, neck supple Neck exam: ABSENT: carotid bruit, JVD, lymphadenopathy Respiratory exam: PRESENT: clear to auscultation abimbola, symmetrical, unlabored. ABSENT: rales, rhonchi, wheezes Cardiovascular exam: PRESENT: RRR, +S1, +S2 GI/Abdominal exam: PRESENT: normal bowel sounds, soft. ABSENT: distended, guarding, tenderness Extremities exam: PRESENT: pedal edema Musculoskeletal exam: PRESENT: normal inspection Neurological exam: PRESENT: alert, awake, oriented to person, oriented to place , oriented to situation, CN II-XII grossly intact Psychiatric exam: PRESENT: appropriate affect, normal mood. ABSENT: agitated, anxious Skin exam: PRESENT: dry, normal color, warm Results Laboratory Results: 03/17/18 05:52 03/18/18 05:33 Impressions: Chest X-Ray 03/16/18 18:54 IMPRESSION: Mild left basilar subsegmental atelectasis. No consolidation or pleural effusion. Assessment & Plan - Diagnosis (1) COPD with exacerbation Is this a current diagnosis for this admission?: Yes Plan: The patient is definitely improved with BiPAP. He reports that he does not use BiPAP at home. I reduce the DuoNeb nebulizer treatments to every 6 hours with treatments available every 3 hours if needed. In addition I initiated budesonide nebulizer therapy twice daily. I will restart his outpatient inhaler therapy likely in the next day or 2. His PCO2 remains high but his baseline is most likely 70. We are going to try his BiPAP on room air. He does use 3 L nasal cannula oxygen at home normally. He may be a good candidate for BiPAP at home and I believe Dr. Mcdaniel is spearheading this effort. Because I initiated the budesonide therapy I am decreasing his Solu-Medrol. 03/18/2018-the patient still has intermittent scattered wheezes. I will keep his steroid dose the same as well as his inhaler regimen. The patient would likely benefit from BiPAP at home. I will work with case management regarding this issue. It sounds like he needs a revision and education with regard to his home medication regimen. 03/19/2018-the patient is exceptionally tachypneic. It is more due to anxiety than anything. His blood gas today is improved. His PCO2 is actually closing in on normal. We will continue his current regimen at this time. 03/20/2018-the patient is doing much better today. He still wears his BiPAP during the day and all night. He did have spirometry today. The results were as follows: FVC 2.19 L 50% of predicted, FEV1 1.14 L 33% of predicted. FEV1/FVC 52% of predicted, FEF 2575% 0.96 L which is 28% of predicted. Post dilator readings FVC 2.24 L 51% of predicted, FEV1 1.33 L 38% of predicted , FEV1/FVC 59% of predicted, FEF 25/75 0.90 L 26% of expected. The patient meets the criteria for AVAPS therapy with a trilogy unit. He will need to wear it all night and likely needed during the day especially if napping. 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 Mcdaniel. (2) Pneumonia Qualifiers: Pneumonia type: due to unspecified organism Laterality: left Lung location: lower lobe of lung Qualified Code(s): J18.1 - Lobar pneumonia, unspecified organism Is this a current diagnosis for this admission?: Yes Plan: Chest x-ray revealed possible consolidation at the left base. We will continue his levofloxacin and azithromycin at this time. As noted above he reports feeling better. 03/18/2018-the patient will complete his antibiotic therapy as ordered. 03/19/2018-continue Levaquin and Zithromax as ordered. 03/20/2018-as above (3) Edema Qualifiers: Edema type: unspecified Qualified Code(s): R60.9 - Edema, unspecified Is this a current diagnosis for this admission?: Yes Plan: 03/18/2018-the patient has 3+ edema in both legs. He states that he had been on a diuretic in the past. He states that he has had edema. There is a history of diastolic failure. I believe his last echocardiogram was 1 year ago. I will start the patient on furosemide today and monitor his electrolytes. I will try and investigate further with regard to the etiology. 03/19/2018-I am going to increase the patient's furosemide 40 mg daily and monitor his intake and output. He has continued to have a positive fluid balance. 03/20/2018-on the increased dose of furosemide he is doing well. His positive fluid balance yesterday was only 600 mL. (4) Anxiety and depression Is this a current diagnosis for this admission?: Yes Plan: 03/19/2018-based on previous medications the patient appears to have a history of bipolar disorder, ADHD and anxiety. He is currently on BuSpar. We will give him 10 mg now and increase his daily dose to 20 mg twice daily (maximum dose 60 mg/day). In addition I have started sertraline 50 mg at bedtime. 03/20/2018-the patient is extremely calm today. Complete opposite of yesterday. Part of this could be that his sister is visiting. We did make some changes in his medication. The addition of sertraline certainly would not take effect this quickly. We will continue the current recommendations. We did discuss that his primary care physician has had him on multiple medications in the past but he has had some noncompliance with this. - Time Time Spent with patient: 25-34 minutes
[2018-03-20] MEDS: ACETAMINOPHEN 325 MG TABLET PO PRN (21:25)
[2018-03-20] MEDS: LEVOFLOXACIN 750 MG/D5W RTU 750 MG/150 ML RTUPB IV SCH (21:36)
[2018-03-21] MEDS: IPRATROPIUM/ALBUTEROL 0.5-2.5 MG/3 ML AMPUL NEB SCH ×4 (02:31→20:35)
[2018-03-21] MEDS: ENOXAPARIN SODIUM INJ 40 MG/0.4 ML DISP.SYRIN SUBCUT SCH (05:21)
[2018-03-21] MEDS: AZITHROMYCIN 500 MG in DEXTROSE 5%-WATER 250 ML IV SCH (05:30)
[2018-03-21] MEDS: BUDESONIDE NEB 0.5 MG/2 ML AMPUL NEB SCH ×2 (08:27→20:35)
[2018-03-21] MEDS: ASCORBIC ACID 500 MG TABLET PO SCH (09:04)
[2018-03-21] MEDS: FUROSEMIDE 20 MG TABLET PO SCH (09:04)
[2018-03-21] MEDS: GUAIFENESIN 600 MG TABLET.SA PO SCH ×2 (09:04→21:50)
[2018-03-21] MEDS: METHYLPREDNISOLONE INJ 125 MG/2 ML SDV IV SCH ×2 (09:04→21:50)
[2018-03-21] MEDS: BUSPIRONE HCL 10 MG TABLET PO SCH ×2 (09:05→21:50)
[2018-03-21] MEDS: ASPIRIN 81 MG TABLET, CHEWABLE PO SCH (09:06)
[2018-03-21] MEDS: FLUTICASONE NASAL SPRAY 50 MCG/SPRY 120 SPRAY/16 GM NASL SCH (09:06)
[2018-03-21 10:47] LABS: ARTERIAL BLOOD BASE EXCESS 3.9 mmol/L; ARTERIAL BLOOD H2CO3 1.42 mmol/L (1.05-1.35); ARTERIAL BLOOD HCO3 29.4 mmol/L (20-24); ARTERIAL BLOOD O2 SATURATION 95.7 % (94-98); ARTERIAL BLOOD PCO2 47.1 mmHg (35-45); ARTERIAL BLOOD PH 7.41 (7.35-7.45); ARTERIAL BLOOD PO2 79.1 mmHg (80-100); ARTERIAL BLOOD TOTAL CO2 30.8 mmol/L (23-27)
[2018-03-21 10:50] LABS: ARTERIAL BLOOD FIO2 4 L
--- NOTE | 2018-03-21 11:17 | PDOC PROGRESS REPORT ---
Subjective Progress Note for:: 03/21/18 Subjective:: This is a 67 years old male patient admitted with chief complaint of shortness of breath and wheezing. Patient admitted with impression of acute on chronic hypoxic respiratory failure. Patient has history of chronic respiratory failure for which she is on several history of oxygen 24 7. Patient also smokes actively. His chest x-ray reported as left base consolidation so was a diagnosis of pneumonia is entertained. Patient has been on Zithromax and Levaquin. I will discontinue Zithromax and keep the Levaquin. Reason For Visit: COPD EXACERBATION Physical Exam Vital Signs: Temp Pulse Resp BP Pulse Ox 97.6 F 100 18 128/83 H 95 03/21/18 08:14 03/21/18 08:27 03/21/18 08:27 03/21/18 08:14 03/21/18 08:27 Pulse Oximeter Nocturnal Start: 03/20/18 09: 20 Freq: RTQ4 Status: Complete Document 03/21/18 07:08 LDA (Rec: 03/21/18 07:08 LDA [email or web address]) Nocturnal Pulse Oximetry Equipment Usage Equipment Discontinued Continuous SpO2 Discontinued No Continuous SpO2 Machine # 11 Intake & Output 03/20/18 03/21/18 03/22/18 06:59 06:59 06:59 Intake Total 1180 3053 250 Output Total 500 2725 Balance 680 328 250 Weight 85.6 kg 85.7 kg General appearance: PRESENT: no acute distress Eye exam: PRESENT: conjunctiva pink Mouth exam: PRESENT: moist Neck exam: ABSENT: carotid bruit, JVD, lymphadenopathy, thyromegaly Respiratory exam: PRESENT: wheezes Cardiovascular exam: PRESENT: RRR. ABSENT: diastolic murmur, rubs, systolic murmur GI/Abdominal exam: PRESENT: normal bowel sounds, soft. ABSENT: distended, guarding, mass, organolmegaly, rebound, tenderness Neurological exam: PRESENT: alert, awake, oriented to time, oriented to situation Results Laboratory Results: 03/17/18 05:52 03/18/18 05:33 03/21/18 10:32 Carbonic Acid 1.42 H HCO3/H2CO3 Ratio 20:1 ABG pH 7.41 ABG pCO2 47.1 H ABG pO2 79.1 L ABG HCO3 29.4 H ABG O2 Saturation 95.7 ABG Base Excess 3.9 FiO2 4 L Impressions: Chest X-Ray 03/16/18 18:54 IMPRESSION: Mild left basilar subsegmental atelectasis. No consolidation or pleural effusion. Assessment & Plan - Diagnosis (1) Acute and chronic respiratory failure with hypoxia Is this a current diagnosis for this admission?: Yes Plan: Continue supplemental oxygen and breathing treatment. (2) COPD with exacerbation Is this a current diagnosis for this admission?: Yes Plan: Asthma #2 (3) Pneumonia Qualifiers: Pneumonia type: due to unspecified organism Laterality: left Lung location: lower lobe of lung Qualified Code(s): J18.1 - Lobar pneumonia, unspecified organism Is this a current diagnosis for this admission?: Yes Plan: This is based on clinical and radiologic findings. I will continue Levaquin. (4) Tobacco dependence Is this a current diagnosis for this admission?: Yes Plan: Patient counseled and encouraged to quit smoking
[2018-03-21] MEDS: MONTELUKAST SODIUM 10 MG TABLET PO SCH (17:49)
[2018-03-21] MEDS: LEVOFLOXACIN 750 MG/D5W RTU 750 MG/150 ML RTUPB IV SCH (21:59)
[2018-03-22] MEDS: IPRATROPIUM/ALBUTEROL 0.5-2.5 MG/3 ML AMPUL NEB PRN (02:03)
[2018-03-22] MEDS: IPRATROPIUM/ALBUTEROL 0.5-2.5 MG/3 ML AMPUL NEB SCH ×4 (04:11→20:06)
[2018-03-22] MEDS: ENOXAPARIN SODIUM INJ 40 MG/0.4 ML DISP.SYRIN SUBCUT SCH (05:59)
[2018-03-22] MEDS: BUDESONIDE NEB 0.5 MG/2 ML AMPUL NEB SCH ×2 (08:04→20:06)
[2018-03-22] MEDS: GUAIFENESIN 600 MG TABLET.SA PO SCH ×2 (09:25→21:20)
[2018-03-22] MEDS: METHYLPREDNISOLONE INJ 125 MG/2 ML SDV IV SCH (09:25)
[2018-03-22] MEDS: FUROSEMIDE 20 MG TABLET PO SCH (09:25)
[2018-03-22] MEDS: BUSPIRONE HCL 10 MG TABLET PO SCH ×2 (09:25→21:19)
[2018-03-22] MEDS: ASPIRIN 81 MG TABLET, CHEWABLE PO SCH (09:25)
[2018-03-22] MEDS: ASCORBIC ACID 500 MG TABLET PO SCH (09:26)
[2018-03-22] MEDS: FLUTICASONE NASAL SPRAY 50 MCG/SPRY 120 SPRAY/16 GM NASL SCH (09:26)
[2018-03-22] MEDS ORDERED: ALBUTEROL SULFATE HFA (90 MCG/PUFF) 200 PUFF/8.5 GM MDI IH PRN (10:29)
--- NOTE | 2018-03-22 14:34 | PDOC PROGRESS REPORT ---
Subjective Progress Note for:: 03/22/18 Reason For Visit: COPD EXACERBATION Physical Exam Vital Signs: Temp Pulse Resp BP Pulse Ox 98.0 F 87 16 108/90 H 97 03/22/18 12:30 03/22/18 13:51 03/22/18 13:51 03/22/18 12:30 03/22/18 13:51 Pulse Oximeter Nocturnal Start: 03/20/18 09: 20 Freq: RTQ4 Status: Complete Document 03/21/18 07:08 LDA (Rec: 03/21/18 07:08 LDA [email or web address]) Nocturnal Pulse Oximetry Equipment Usage Equipment Discontinued Continuous SpO2 Discontinued No Continuous SpO2 Machine # 11 Intake & Output 03/21/18 03/22/18 03/23/18 06:59 06:59 06:59 Intake Total 3053 5 Output Total 0505 4925 Balance 328 -850 Weight 85.7 kg 86.3 kg General appearance: PRESENT: no acute distress Eye exam: PRESENT: conjunctiva pink Mouth exam: PRESENT: moist Neck exam: ABSENT: carotid bruit, JVD, lymphadenopathy Respiratory exam: PRESENT: Scattered bilateral expiratory wheezes Cardiovascular exam: PRESENT: RRR. ABSENT: diastolic murmur, rubs, systolic murmur GI/Abdominal exam: PRESENT: normal bowel sounds, soft. ABSENT: distended, guarding, mass, organolmegaly, rebound, tenderness Neurological exam: PRESENT: alert, awake, oriented to time, oriented to situation Results Laboratory Results: 03/17/18 05:52 03/18/18 05:33 03/17/18 00:18 Blood Blood Culture - Final NO GROWTH IN 5 DAYS Impressions: Chest X-Ray 03/16/18 18:54 IMPRESSION: Mild left basilar subsegmental atelectasis. No consolidation or pleural effusion. Assessment & Plan - Diagnosis (1) Acute and chronic respiratory failure with hypoxia Is this a current diagnosis for this admission?: Yes (2) COPD with exacerbation Is this a current diagnosis for this admission?: Yes (3) Pneumonia Qualifiers: Pneumonia type: due to unspecified organism Laterality: left Lung location: lower lobe of lung Qualified Code(s): J18.1 - Lobar pneumonia, unspecified organism Is this a current diagnosis for this admission?: Yes (4) Tobacco dependence Is this a current diagnosis for this admission?: Yes - Plan Summary Plan Summary: Patient improving. He still has wheezes. Continue nebulizers. Will stop IV Solu-Medrol 60 mg every 12 and start oral prednisone 40 mg twice daily. Will monitor for improvement. Patient will need sleep study at discharge per Dr. Mcdaniel of pulmonology. Care management arranging to see if that can be set up on day of discharge. Will continue Levaquin for now. Continue medical management otherwise. Follow- up CBC and Chem-7 in a.m. Smoking cessation counseling.
--- NOTE | 2018-03-22 15:49 | PDOC CONSULTATION ---
Consultation Consult Date: 03/22/18 History of Present Illness Admission Date/PCP: 03/16/18 23:42 JOSSE MORTENSEN MD History of Present Illness: MANI FLYNN is a 67 year old male Past Medical History Cardiac Medical History: Reports: Hyperlipidema Pulmonary Medical History: Reports: Asthma, Bronchitis, Chronic Obstructive Pulmonary Disease (COPD), Pneumonia, Sleep Apnea GI Medical History: Reports: Gastroesophageal Reflux Disease, Hiatal Hernia Musculoskeltal Medical History: Reports: Arthritis Psychiatric Medical History: Reports: Attention Deficit Hyperactivity Disorder, Bipolar Disorder Past Surgical History Past Surgical History: Reports: Appendectomy, Cholecystectomy, Other - Surgery for bladder cancer Social History Smoking Status: Current Some Day Smoker Cigarettes Packs Per Day: 3 Number of Years Smokin Last Time Smoked: 10/2017 Passive smoke exposure as: Both Frequency of Alcohol Use: Occasional Hx Recreational Drug Use: No Drugs: None Hx Prescription Drug Abuse: No Do you have pets?: No Have you had any respiratory illnesses as a child?: Yes Have you been exposed to any sick contacts recently?: No Have you had any recent respiratory illnesses?: Yes Have you travelled outside of [place] in the past 12 months?: No Family History Family History: CAD, DM, Hypertension Parental Family History Reviewed: Yes Children Family History Reviewed: Yes Sibling(s) Family History Reviewed.: Yes Medication/Allergy Home Medications: Albuterol Sulfate [Ventolin Hfa] 2 puff IH Q6HP PRN 10/16/17 Budesonide/Formoterol Fumarate [Symbicort HFA 160-4.5 mcg Inhaler 6 gm] 2 puff IH Q12 10/16/17 Ascorbic Acid [Vitamin C] 1,000 mg PO DAILYP PRN 10/27/17 Albuterol Sulfate [Albuterol Sulfate 2.5mg/3 mL] 3 ml IH RTQ4HP PRN #1 vial.neb 11/04/17 Aspirin [Aspirin EC] 81 mg PO DAILY 03/17/18 Allergies/Adverse Reactions: No Known Allergies Allergy (Verified 03/16/18 18:39) Review of Systems Constitutional: PRESENT: fatigue. ABSENT: anorexia, chills, night sweats Eyes: ABSENT: visual disturbances Ears: ABSENT: hearing changes Nose, Mouth, and Throat: ABSENT: mouth pain, sore throat Cardiovascular: PRESENT: dyspnea on exertion, orthropnea. ABSENT: chest pain, palpitations Respiratory: PRESENT: cough, dyspnea. ABSENT: hemoptysis Gastrointestinal: ABSENT: abdominal pain, bloating, coffee ground emesis, dysphagia, hematemesis, hematochezia, melena Genitourinary: PRESENT: nocturia. ABSENT: dysuria, hematuria Integumentary: ABSENT: pruritus, rash Neurological: ABSENT: abnormal gait, abnormal speech, confusion, convulsions Psychiatric: ABSENT: hallucinations, homidical ideation, suicidal ideation Endocrine: ABSENT: cold intolerance, heat intolerance, polydipsia Hematologic/Lymphatic: ABSENT: easy bruising Allergic/Immunologic: ABSENT: seasonal rhinorrhea Physical Exam Vital Signs: Temp Pulse Resp BP Pulse Ox 97.9 F 84 20 139/86 H 95 03/22/18 08:33 03/22/18 08:33 03/22/18 08:33 03/22/18 08:33 03/22/18 08:33 Pulse Oximeter Nocturnal Start: 03/20/18 09: 20 Freq: RTQ4 Status: Complete Document 03/21/18 07:08 LDA (Rec: 03/21/18 07:08 LDA [email or web address]) Nocturnal Pulse Oximetry Equipment Usage Equipment Discontinued Continuous SpO2 Discontinued No Continuous SpO2 Machine # 11 Intake & Output 03/21/18 03/22/18 03/23/18 06:59 06:59 06:59 Intake Total 3053 2025 Output Total 2725 2875 Balance 328 -850 Weight 85.7 kg 86.3 kg General appearance: PRESENT: no acute distress, cooperative, disheveled Head exam: PRESENT: atraumatic, normocephalic Eye exam: PRESENT: conjunctiva pale, EOMI Mouth exam: PRESENT: dry mucosa, neck supple, tongue midline Neck exam: ABSENT: carotid bruit, JVD, lymphadenopathy, thyromegaly, tracheal deviation, tracheostomy Respiratory exam: PRESENT: decreased breath sounds, prolonged expiratory phas, rhonchi, unlabored. ABSENT: retraction, stridor Cardiovascular exam: PRESENT: RRR, +S1, +S2 Pulses: PRESENT: normal radial pulses GI/Abdominal exam: PRESENT: soft Extremities exam: ABSENT: calf tenderness, clubbing, joint swelling, pedal edema , tenderness, +1 edema Neurological exam: PRESENT: alert, awake Psychiatric exam: PRESENT: normal mood Skin exam: PRESENT: dry, warm Results Laboratory Results: 03/17/18 05:52 03/18/18 05:33 03/21/18 10:32 Carbonic Acid 1.42 H HCO3/H2CO3 Ratio 20:1 ABG pH 7.41 ABG pCO2 47.1 H ABG pO2 79.1 L ABG HCO3 29.4 H ABG O2 Saturation 95.7 ABG Base Excess 3.9 FiO2 4 L 03/17/18 00:18 Blood Blood Culture - Final NO GROWTH IN 5 DAYS Impressions: Chest X-Ray 03/16/18 18:54 IMPRESSION: Mild left basilar subsegmental atelectasis. No consolidation or pleural effusion. Assessment & Plan - Diagnosis (1) Acute and chronic respiratory failure with hypercapnia Is this a current diagnosis for this admission?: Yes Plan: Due to the severity of the patient's severe chronic respiratory failure secondary to their severe COPD, The patient needs non-invasive ventilation for life sustaining measures. Bipap does not supply enough pressure to adequately ventilate patient. Due to this , non-invasive volume ventilation needs to be used at night and druing the day for naps and distress Without the use of the non-invasive volume ventilation, serious harm and can occur due to elevated CO2 levels and hypoxia. The use of the Trilogy with AVAPS/AE with an autotitrating EPAP will maintain a patent airway while providing adequate oxygenation and ventilation. The use of this device will help with prevent frequent readmissions. If patient does not meet the qualification for this device he will need to be scheduled for a sleep study upon discharge. (3) Tobacco dependence Is this a current diagnosis for this admission?: Yes (4) Daytime sleepiness Is this a current diagnosis for this admission?: Yes Plan: Patient did not quality for trilogy at this time will need a sleep study at discharge
[2018-03-22] MEDS: PREDNISONE 20 MG TABLET PO SCH (17:15)
[2018-03-22] MEDS: MONTELUKAST SODIUM 10 MG TABLET PO SCH (17:16)
[2018-03-22] MEDS ORDERED: LEVOFLOXACIN 750 MG TABLET PO SCH (22:00)
[2018-03-23] MEDS: IPRATROPIUM/ALBUTEROL 0.5-2.5 MG/3 ML AMPUL NEB SCH ×4 (02:20→21:09)
[2018-03-23 05:24] LABS: HEMOGLOBIN 14.9 g/dL (13.5-17.0); MEAN CORPUSCULAR HEMOGLOBIN 30.6 pg (27.0-33.4); MEAN CORPUSCULAR HGB CONC 33.9 g/dL (32.0-36.0); MEAN CORPUSCULAR VOLUME 90 fl (80-97); PLATELET COUNT 199 10^3/uL (150-450); RED BLOOD COUNT 4.88 10^6/uL (4.35-5.55); RED CELL DISTRIBUTION WIDTH 14.4 % (11.5-14.0); WHITE BLOOD COUNT 15.8 10^3/uL (4.0-10.5)
[2018-03-23 05:45] LABS: ANION GAP 10 (5-19); BLOOD UREA NITROGEN 29 mg/dL (7-20); CARBON DIOXIDE 33 mmol/L (22-30); CHLORIDE 100 mmol/L (98-107); GLUCOSE 110 mg/dL (75-110); POTASSIUM 4.4 mmol/L (3.6-5.0); SODIUM 142.7 mmol/L (137-145)
[2018-03-23 05:55] LABS: ABSOLUTE LYMPHOCYTES# (MANUAL) 3.2 10^3/uL (0.5-4.7); ABSOLUTE MONOCYTES # (MANUAL) 1.1 10^3/uL (0.1-1.4); ABSOLUTE NEUTROPHILS# (MANUAL) 11.5 10^3/uL (1.7-8.2); BASOPHILS % (MANUAL) 0 % (0-2); EOSINOPHILS % (MANUAL) 0 % (0-6); LYMPHOCYTES % (MANUAL) 20 % (13-45); MONOCYTES % (MANUAL) 7 % (3-13); SEGMENTED NEUTROPHILS % (MAN) 73 % (42-78); TOTAL CELLS COUNTED 100
[2018-03-23 05:57] LABS: ANISOCYTOSIS SLIGHT; PLATELET COMMENT ADEQUATE; POIKILOCYTOSIS SLIGHT; TARGET CELLS SLIGHT
[2018-03-23] MEDS: ENOXAPARIN SODIUM INJ 40 MG/0.4 ML DISP.SYRIN SUBCUT SCH (06:08)
[2018-03-23] MEDS: BUDESONIDE NEB 0.5 MG/2 ML AMPUL NEB SCH ×2 (08:29→21:08)
[2018-03-23 09:19] LABS: ARTERIAL BLOOD BASE EXCESS 6.4 mmol/L; ARTERIAL BLOOD H2CO3 1.36 mmol/L (1.05-1.35); ARTERIAL BLOOD HCO3 31.3 mmol/L (20-24); ARTERIAL BLOOD O2 SATURATION 94.6 % (94-98); ARTERIAL BLOOD PCO2 45.2 mmHg (35-45); ARTERIAL BLOOD PH 7.46 (7.35-7.45); ARTERIAL BLOOD PO2 69.3 mmHg (80-100); ARTERIAL BLOOD TOTAL CO2 32.7 mmol/L (23-27)
[2018-03-23 09:20] LABS: ARTERIAL BLOOD FIO2 3L
[2018-03-23] MEDS: FUROSEMIDE 20 MG TABLET PO SCH (09:54)
[2018-03-23] MEDS: BUSPIRONE HCL 10 MG TABLET PO SCH ×2 (09:55→21:37)
[2018-03-23] MEDS: ASCORBIC ACID 500 MG TABLET PO SCH (09:55)
[2018-03-23] MEDS: PREDNISONE 20 MG TABLET PO SCH ×2 (09:56→17:34)
[2018-03-23] MEDS: GUAIFENESIN 600 MG TABLET.SA PO SCH ×2 (09:56→21:37)
[2018-03-23] MEDS: FLUTICASONE NASAL SPRAY 50 MCG/SPRY 120 SPRAY/16 GM NASL SCH (09:56)
[2018-03-23] MEDS: ASPIRIN 81 MG TABLET, CHEWABLE PO SCH (09:56)
--- NOTE | 2018-03-23 16:27 | PDOC PROGRESS REPORT ---
Subjective Subjective:: Doing better, still with shortness of breath but improving. Still with cough, but nonproductive. No chest pain or palpitations, no fever or chills. No orthopnea or PND. Reason For Visit: COPD EXACERBATION Physical Exam Vital Signs: Temp Pulse Resp BP Pulse Ox 97.6 F 66 20 119/78 93 03/23/18 12:28 03/23/18 14:30 03/23/18 14:30 03/23/18 12:28 03/23/18 14:30 Pulse Oximeter Nocturnal Start: 03/20/18 09: 20 Freq: RTQ4 Status: Complete Document 03/21/18 07:08 LDA (Rec: 03/21/18 07:08 LDA [email or web address]) Nocturnal Pulse Oximetry Equipment Usage Equipment Discontinued Continuous SpO2 Discontinued No Continuous SpO2 Machine # 11 Intake & Output 03/22/18 03/23/18 03/24/18 06:59 06:59 06:59 Intake Total 1532 1325 724 Output Total 1017 7511 900 Balance -850 -750 -176 Weight 86.3 kg 85.1 kg General appearance: PRESENT: no acute distress Eye exam: PRESENT: conjunctiva pink Mouth exam: PRESENT: moist Neck exam: ABSENT: carotid bruit, JVD, lymphadenopathy Respiratory exam: PRESENT: Scattered bilateral expiratory wheezes Cardiovascular exam: PRESENT: RRR. ABSENT: diastolic murmur, rubs, systolic murmur GI/Abdominal exam: PRESENT: normal bowel sounds, soft. ABSENT: distended, guarding, mass, organolmegaly, rebound, tenderness Neurological exam: PRESENT: alert, awake, oriented to time, oriented to situation Results Laboratory Results: 03/23/18 04:53 03/23/18 04:53 03/23/18 03/23/18 03/23/18 04:53 04:53 08:55 WBC 15.8 H RBC 4.88 Hgb 14.9 Hct 44.0 MCV 90 MCH 30.6 MCHC 33.9 RDW 14.4 H Plt Count 199 Seg Neutrophils % Not Reportable Lymphocytes % Not Reportable Monocytes % Not Reportable Eosinophils % Not Reportable Basophils % Not Reportable Absolute Neutrophils Not Reportable Absolute Lymphocytes Not Reportable Absolute Monocytes Not Reportable Absolute Eosinophils Not Reportable Absolute Basophils Not Reportable Carbonic Acid 1.36 H HCO3/H2CO3 Ratio 23:1 ABG pH 7.46 H ABG pCO2 45.2 H ABG pO2 69.3 L ABG HCO3 31.3 H ABG O2 Saturation 94.6 ABG Base Excess 6.4 FiO2 3L Sodium 142.7 Potassium 4.4 Chloride 100 Carbon Dioxide 33 H Anion Gap 10 BUN 29 H Creatinine 0.96 Est GFR ( Amer) > 60 Est GFR (Non-Af Amer) > 60 Glucose 110 Calcium 9.0 03/20/18 20:40 Sputum Sputum Culture - Final Pseudomonas Aeruginosa Reduced Normal Fatoumata Impressions: Chest X-Ray 03/16/18 18:54 IMPRESSION: Mild left basilar subsegmental atelectasis. No consolidation or pleural effusion. Assessment & Plan - Diagnosis (1) Acute and chronic respiratory failure with hypoxia Is this a current diagnosis for this admission?: Yes (2) COPD with exacerbation Is this a current diagnosis for this admission?: Yes (3) Tobacco dependence Is this a current diagnosis for this admission?: Yes (4) Pneumonia Qualifiers: Pneumonia type: due to unspecified organism Laterality: left Lung location: lower lobe of lung Qualified Code(s): J18.1 - Lobar pneumonia, unspecified organism Is this a current diagnosis for this admission?: Yes Plan: This was suspected, left lung base. - Plan Summary Plan Summary: Patient continues to improve. He still has wheezes. Will will continue nebulizers. IV Solu-Medrol 60 mg every 12 was stopped 03/22/18 and started oral prednisone 40 mg twice daily. Will continue on continue to monitor for improvement. Patient will need sleep study at discharge per Dr. Mcdaniel of pulmonology. Care management arranging to see if that can be set up on day of discharge, perhaps by tomorrow. Patient also being treated for suspected pneumonia left lung base. He is doing better. Will discontinue Levaquin as he has completed 7 days of antibiotics today. Continue medical management otherwise. Follow-up CBC and Chem-7 in a.m. Continued smoking cessation counseling.
[2018-03-23] MEDS: MONTELUKAST SODIUM 10 MG TABLET PO SCH (17:34)
[2018-03-24] MEDS: IPRATROPIUM/ALBUTEROL 0.5-2.5 MG/3 ML AMPUL NEB SCH ×4 (02:31→20:21)
[2018-03-24] MEDS: ENOXAPARIN SODIUM INJ 40 MG/0.4 ML DISP.SYRIN SUBCUT SCH (05:08)
[2018-03-24 05:50] LABS: HEMATOCRIT 42.9 % (37.9-51.0); HEMOGLOBIN 14.5 g/dL (13.5-17.0); MEAN CORPUSCULAR HEMOGLOBIN 30.4 pg (27.0-33.4); MEAN CORPUSCULAR HGB CONC 33.8 g/dL (32.0-36.0); MEAN CORPUSCULAR VOLUME 90 fl (80-97); PLATELET COUNT 194 10^3/uL (150-450); RED BLOOD COUNT 4.78 10^6/uL (4.35-5.55); RED CELL DISTRIBUTION WIDTH 14.3 % (11.5-14.0); WHITE BLOOD COUNT 14.1 10^3/uL (4.0-10.5)
[2018-03-24 06:13] LABS: ANION GAP 11 (5-19); BLOOD UREA NITROGEN 25 mg/dL (7-20); CALCIUM 8.9 mg/dL (8.4-10.2); CARBON DIOXIDE 30 mmol/L (22-30); CHLORIDE 101 mmol/L (98-107); GLUCOSE 125 mg/dL (75-110); POTASSIUM 4.4 mmol/L (3.6-5.0); SODIUM 141.8 mmol/L (137-145)
[2018-03-24 06:17] LABS: ABSOLUTE LYMPHOCYTES# (MANUAL) 1.7 10^3/uL (0.5-4.7); ABSOLUTE MONOCYTES # (MANUAL) 0.8 10^3/uL (0.1-1.4); ABSOLUTE NEUTROPHILS# (MANUAL) 11.6 10^3/uL (1.7-8.2); BASOPHILS % (MANUAL) 0 % (0-2); EOSINOPHILS % (MANUAL) 0 % (0-6); LYMPHOCYTES % (MANUAL) 8 % (13-45); MONOCYTES % (MANUAL) 6 % (3-13); SEGMENTED NEUTROPHILS % (MAN) 82 % (42-78); TOTAL CELLS COUNTED 100
[2018-03-24 06:18] LABS: PLATELET COMMENT ADEQUATE; RBC MORPHOLOGY COMMENT NORMO-CYTIC/CHROMIC; TOXIC GRANULATION SLIGHT; TOXIC VACUOLATION PRESENT
[2018-03-24] MEDS: BUDESONIDE NEB 0.5 MG/2 ML AMPUL NEB SCH ×2 (08:13→20:21)
[2018-03-24] MEDS: ASPIRIN 81 MG TABLET, CHEWABLE PO SCH (11:02)
[2018-03-24] MEDS: FUROSEMIDE 20 MG TABLET PO SCH (11:02)
[2018-03-24] MEDS: GUAIFENESIN 600 MG TABLET.SA PO SCH ×2 (11:04→21:24)
[2018-03-24] MEDS: PREDNISONE 20 MG TABLET PO SCH ×2 (11:04→18:05)
[2018-03-24] MEDS: FLUTICASONE NASAL SPRAY 50 MCG/SPRY 120 SPRAY/16 GM NASL SCH (11:05)
[2018-03-24] MEDS: ASCORBIC ACID 500 MG TABLET PO SCH (11:06)
[2018-03-24] MEDS: BUSPIRONE HCL 10 MG TABLET PO SCH ×2 (11:06→21:25)
--- NOTE | 2018-03-24 15:51 | PDOC PROGRESS REPORT ---
Subjective Progress Note for:: 03/24/18 Subjective:: 67-year-old male admitted for acute on chronic respiratory failure, COPD exacerbation. He was seen by Dr. Mcdaniel the shoe turner and he recommended patient have sleep study done to qualify him for BiPAP on the day of discharge. He has sleep study scheduled for 8 PM tomorrow and patient should be discharged in a.m. to keep the sleep study appointment. Doing better, still with shortness of breath but improving. Still with cough, but nonproductive. No chest pain or palpitations, no fever or chills. No orthopnea or PND. Patient now on p.o. steroids and doing well. Reason For Visit: COPD EXACERBATION Physical Exam Vital Signs: Temp Pulse Resp BP Pulse Ox 97.4 F 85 18 120/77 96 03/24/18 11:28 03/24/18 13:43 03/24/18 13:43 03/24/18 11:28 03/24/18 15:19 Pulse Oximeter Nocturnal Start: 03/20/18 09: 20 Freq: RTQ4 Status: Complete Document 03/21/18 07:08 LDA (Rec: 03/21/18 07:08 LDA [email or web address]) Nocturnal Pulse Oximetry Equipment Usage Equipment Discontinued Continuous SpO2 Discontinued No Continuous SpO2 Machine # 11 Intake & Output 03/23/18 03/24/18 03/25/18 06:59 06:59 06:59 Intake Total 1325 1774 355 Output Total 2070 1850 Balance -750 -76 355 Weight 85.1 kg 85 kg General appearance: PRESENT: no acute distress Eye exam: PRESENT: conjunctiva pink Mouth exam: PRESENT: moist Neck exam: ABSENT: carotid bruit, JVD, lymphadenopathy Respiratory exam: PRESENT: Scattered bilateral expiratory wheezes, good air movement Cardiovascular exam: PRESENT: RRR. ABSENT: diastolic murmur, rubs, systolic murmur GI/Abdominal exam: PRESENT: normal bowel sounds, soft. ABSENT: distended, guarding, mass, organolmegaly, rebound, tenderness Neurological exam: PRESENT: alert, awake, oriented to time, oriented to situation Results Laboratory Results: 03/24/18 05:16 03/24/18 05:16 03/24/18 03/24/18 05:16 05:16 WBC 14.1 H RBC 4.78 Hgb 14.5 Hct 42.9 MCV 90 MCH 30.4 MCHC 33.8 RDW 14.3 H Plt Count 194 Seg Neutrophils % Not Reportable Lymphocytes % Not Reportable Monocytes % Not Reportable Eosinophils % Not Reportable Basophils % Not Reportable Absolute Neutrophils Not Reportable Absolute Lymphocytes Not Reportable Absolute Monocytes Not Reportable Absolute Eosinophils Not Reportable Absolute Basophils Not Reportable Sodium 141.8 Potassium 4.4 Chloride 101 Carbon Dioxide 30 Anion Gap 11 BUN 25 H Creatinine 0.76 Est GFR ( Amer) > 60 Est GFR (Non-Af Amer) > 60 Glucose 125 H Calcium 8.9 03/20/18 20:40 Sputum Sputum Culture - Final Pseudomonas Aeruginosa Reduced Normal Fatoumata Impressions: Chest X-Ray 03/16/18 18:54 IMPRESSION: Mild left basilar subsegmental atelectasis. No consolidation or pleural effusion. Assessment & Plan - Diagnosis (1) Acute and chronic respiratory failure with hypoxia Is this a current diagnosis for this admission?: Yes (2) COPD with exacerbation Is this a current diagnosis for this admission?: Yes (3) Tobacco dependence Is this a current diagnosis for this admission?: Yes (4) Pneumonia Qualifiers: Pneumonia type: due to unspecified organism Laterality: left Lung location: lower lobe of lung Qualified Code(s): J18.1 - Lobar pneumonia, unspecified organism Is this a current diagnosis for this admission?: Yes - Plan Summary Plan Summary: Patient continues to improve. Will will continue nebulizers. IV Solu-Medrol was stopped 03/22/18 and patient started oral prednisone 40 mg twice daily. Will decrease prednisone to 40 mg daily and continue to monitor patient. Patient will need sleep study at discharge per Dr. Mcdaniel of pulmonology. He has sleep study scheduled for 8 PM tomorrow 03/25/18 and patient should be discharged in a.m. to keep the sleep study appointment. Patient also being treated for suspected pneumonia left lung base. He is doing better. Levaquin was discontinued 03/23/18, after 7 days of antibiotics. Suspect that current leukocytosis is secondary to the fact that patient on steroids. Continue medical management otherwise. Continued smoking cessation counseling.
[2018-03-24] MEDS: MONTELUKAST SODIUM 10 MG TABLET PO SCH (18:07)
[2018-03-25] MEDS: IPRATROPIUM/ALBUTEROL 0.5-2.5 MG/3 ML AMPUL NEB SCH ×2 (02:19→07:39)
[2018-03-25] MEDS: ENOXAPARIN SODIUM INJ 40 MG/0.4 ML DISP.SYRIN SUBCUT SCH (05:02)
[2018-03-25] MEDS: BUDESONIDE NEB 0.5 MG/2 ML AMPUL NEB SCH (07:39)
[2018-03-25] MEDS: GUAIFENESIN 600 MG TABLET.SA PO SCH (09:04)
[2018-03-25] MEDS: ASCORBIC ACID 500 MG TABLET PO SCH (09:05)
[2018-03-25] MEDS: FLUTICASONE NASAL SPRAY 50 MCG/SPRY 120 SPRAY/16 GM NASL SCH (09:05)
[2018-03-25] MEDS: BUSPIRONE HCL 10 MG TABLET PO SCH (09:05)
[2018-03-25] MEDS: FUROSEMIDE 20 MG TABLET PO SCH (09:05)
[2018-03-25] MEDS: ASPIRIN 81 MG TABLET, CHEWABLE PO SCH (09:05)
[2018-03-25 09:08] VITALS: BP 122/75
[2018-03-25] MEDS ORDERED: PREDNISONE 20 MG TABLET PO SCH (10:00)
--- NOTE | 2018-03-25 14:30 | PDOC DISCHARGE SUMMARY ---
General - Admit/Disc Date/PCP Admission Date/Primary Care Provider: 03/16/18 23:42 JOSSE MORTENSEN MD Discharge Date: 03/25/18 - Discharge Diagnosis (1) COPD with exacerbation Is this a current diagnosis for this admission?: Yes (2) Acute and chronic respiratory failure with hypercapnia Is this a current diagnosis for this admission?: Yes (3) Acute and chronic respiratory failure with hypoxia Is this a current diagnosis for this admission?: Yes (4) Chronic interstitial lung disease Is this a current diagnosis for this admission?: Yes (5) Diastolic dysfunction Is this a current diagnosis for this admission?: Yes - Additional Information Discharge Activity: Activity As Tolerated, Slowly Increase Activity Prescriptions: Prednisone [Deltasone 20 mg Tablet] 20 mg PO ASDIR #10 tablet Home Medications: Albuterol Sulfate [Ventolin Hfa] 2 puff IH Q6HP PRN 10/16/17 Budesonide/Formoterol Fumarate [Symbicort HFA 160-4.5 mcg Inhaler 6 gm] 2 puff IH Q12 10/16/17 Ascorbic Acid [Vitamin C] 1,000 mg PO DAILYP PRN 10/27/17 Albuterol Sulfate [Albuterol Sulfate 2.5mg/3 mL] 3 ml IH RTQ4HP PRN #1 vial.neb 11/04/17 Aspirin [Aspirin EC] 81 mg PO DAILY 03/17/18 Aspirin [Aspirin 81 mg Chewable Tablet] 81 mg PO DAILY tab.chew 03/25/18 Buspirone HCl [Buspar 10 mg Tablet] 15 mg PO Q12 tablet 03/25/18 Fluticasone Propionate [Flonase Nasal [place] 50 Mcg/[place] 16 gm] 2 spray NASL DAILY spray.pump 03/25/18 Furosemide [Lasix 20 mg Tablet] 40 mg PO DAILY tablet 03/25/18 Montelukast Sodium [Singulair 10 mg Tablet] 10 mg PO QPM tablet 03/25/18 Prednisone [Deltasone 20 mg Tablet] 20 mg PO ASDIR #10 tablet 03/25/18 Sertraline HCl [Zoloft 50 mg Tablet] 50 mg PO HSP PRN tablet 03/25/18 History of Present Illness History of Present Illness: MANI FLYNN is a 67 year old male admitted for COPD exacerbation. Please see initial H&P for full assessment and plan Hospital Course Hospital Course: After admission to the hospital he was started on IV solumedrol and his breathing improved with bronchial hygiene, nebulizers and inhaler treatments. there was suspicion for pneumonia and hence he completed a 7 day course of levaquin therapy. Pulmonology was consulted- appreciate assistance- Trilogy was recommended. Sleep study is set up for tonight. patient to follow up with Dr Mdcaniel outpatient. his IV solumedrol was titrated down and transitioned to prednisone- will continue on a tapered dose at home. he will go for sleep study tonight. he was happy to go home today. Physical Exam Vital Signs: Temp Pulse Resp BP Pulse Ox 97.4 F 82 16 122/77 100 03/25/18 07:43 03/25/18 07:43 03/25/18 07:43 03/25/18 07:43 03/25/18 07:43 Pulse Oximeter Nocturnal Start: 03/20/18 09: 20 Freq: RTQ4 Status: Complete Document 03/21/18 07:08 LDA (Rec: 03/21/18 07:08 LDA [id number]) Nocturnal Pulse Oximetry Equipment Usage Equipment Discontinued Continuous SpO2 Discontinued No Continuous SpO2 Machine # 11 Intake & Output 03/24/18 03/25/18 03/26/18 06:59 06:59 06:59 Intake Total 1774 1172 Output Total 1850 Balance -76 1172 Weight 187 lb 6.287 oz 199 lb 15.348 oz General appearance: PRESENT: no acute distress, obese Head exam: PRESENT: atraumatic, normocephalic Eye exam: PRESENT: EOMI. ABSENT: conjunctival injection, scleral icterus Mouth exam: PRESENT: moist, tongue midline Neck exam: ABSENT: tracheal deviation Respiratory exam: PRESENT: decreased breath sounds - bilaterally- mostly at the bases, symmetrical, unlabored Cardiovascular exam: PRESENT: +S1, +S2 Pulses: PRESENT: +2 pedal pulses bilateral GI/Abdominal exam: PRESENT: normal bowel sounds, soft. ABSENT: tenderness Extremities exam: ABSENT: joint swelling Musculoskeletal exam: ABSENT: tenderness Neurological exam: PRESENT: alert, awake, oriented to person, oriented to place , oriented to time, CN II-XII grossly intact Skin exam: PRESENT: dry. ABSENT: erythema Results Laboratory Results: 03/24/18 05:16 03/24/18 05:16 Impressions: Chest X-Ray 03/16/18 18:54 IMPRESSION: Mild left basilar subsegmental atelectasis. No consolidation or pleural effusion. Qualifiers - * PATIENT BEING DISCHARGED WITH ANY OF THE FOLLOWING DIAGNOSIS: No VTE patient discharged on overlapping Therapy?: No Plan Time Spent: Less than 30 Minutes
== END 2018-03-25 09:26 | disposition home or self-care (01) | DRG 189 ==
LOC: ER 18:36 → EDLOC 23:42 → EH 23:42 → 4N 03-17 00:50 → EH 03-17 02:00 → 4N 03-17 02:15 → 3S 03-17 03:40
PROVIDERS: ADMIT Internal Medicine; ATTEND Internal Medicine
PROC: 5A09557 Assistance with Respiratory Ventilation, Greater than 96 Consecutive Hours, Continuous Positive Airway Pressure (ICD-10-PCS; principal; 2018-03-16)
DX: J96.21 Acute and chronic respiratory failure with hypoxia (principal); J18.1 Lobar pneumonia, unspecified organism; J44.1 Chronic obstructive pulmonary disease with (acute) exacerbation; K21.9 Gastro-esophageal reflux disease without esophagitis; K44.9 Diaphragmatic hernia without obstruction or gangrene; M19.90 Unspecified osteoarthritis, unspecified site; F41.9 Anxiety disorder, unspecified; F90.9 Attention-deficit hyperactivity disorder, unspecified type; E78.5 Hyperlipidemia, unspecified; F17.210 Nicotine dependence, cigarettes, uncomplicated; L72.3 Sebaceous cyst; F31.9 Bipolar disorder, unspecified; M54.2 Cervicalgia; Z90.49 Acquired absence of other specified parts of digestive tract; Z85.51 Personal history of malignant neoplasm of bladder; Z99.81 Dependence on supplemental oxygen; Z79.52 Long term (current) use of systemic steroids; Z79.82 Long term (current) use of aspirin; Z83.3 Family history of diabetes mellitus; Z82.49 Family history of ischemic heart disease and other diseases of the circulatory system
CPT/HCPCS: 36415; 36600; 71045; 80048; 80053; 80307; 82803; 83735; 83880; 84100; 84484; 85025; 85027; 85610; 87040; 87070; 87077; 87186; 87205; 93005; 93010; 94010; 94640; 94660; 94762; 94799; 96365; 99285; J0456; J1650; J1885; J1940; J1956; J2930; J3475; J3490; J7060; J7512; J7620

== ENCOUNTER 2018-05-07 08:21 | Inpatient (IN) | payer MEDICARE ==
[2018-05-07] MEDS ORDERED: IPRATROPIUM/ALBUTEROL 0.5-2.5 MG/3 ML AMPUL NEB ONE ×3 (08:32→10:26)
[2018-05-07] MEDS ORDERED: METHYLPREDNISOLONE INJ 125 MG/2 ML SDV IV ONE (08:35)
[2018-05-07] MEDS ORDERED: MAGNESIUM SULFATE/D5W 1 GM/100 ML RTUPB IV ONE ×2 (08:36)
[2018-05-07] MEDS ORDERED: METHYLPREDNISOLONE INJ 125 MG/2 ML SDV ONE (08:36)
[2018-05-07] MEDS ORDERED: MAGNESIUM SULFATE/D5W 2 GM/200 ML RTUPB IV ONE (08:36)
--- NOTE | 2018-05-07 08:40 | ER Document Report ---
ED General - General Chief Complaint: Breathing Difficulty Stated Complaint: DIFFICULTY BREATHING TRAVEL OUTSIDE OF THE [place] IN LAST 30 DAYS: No - HPI Notes: Patient is a 67-year-old male with a history of chronic respiratory failure and oxygen dependent COPD who presents to the ED complaining of wheezing, dry nonproductive cough, shortness of breath that began yesterday. Patient states he has had symptoms previously with exacerbation of his COPD and respiratory failure and needed to be admitted to the hospital. Patient states that he has been using his oxygen at home as he is directed. Denies drug allergies. He is eating and drinking without difficulty. He is urinating normally and having normal movements. No other significant cardiopulmonary medical history. Patient does continue to smoke. Denies any prolonged immobilization, distance travel, recent surgery/trauma, personal cancer history, hormone use,or previous DVT/PE. Denies any headache, fever, URI, sore throat, chest pain, palpitations, syncope, abdominal pain, nausea/vomiting/diarrhea, urinary retention, dysuria, hematuria, or rash. - Related Data Allergies/Adverse Reactions: No Known Allergies Allergy (Verified 03/16/18 18:39) Past Medical History - Social History Smoking Status: Current Every Day Smoker Family History: CAD, DM, Hypertension - Past Medical History Cardiac Medical History: Reports: Hx Hypercholesterolemia Pulmonary Medical History: Reports: Hx Asthma, Hx Bronchitis, Hx COPD, Hx Pneumonia, Hx Sleep Apnea Renal/ Medical History: Reports: Hx Kidney Stones GI Medical History: Reports: Hx Gastroesophageal Reflux Disease, Hx Hiatal Hernia, Hx Ulcer Musculoskeletal Medical History: Reports Hx Arthritis Psychiatric Medical History: Reports: Hx Attention Deficit Hyperactivity Disorder, Hx Bipolar Disorder Past Surgical History: Reports: Hx Appendectomy, Hx Cholecystectomy, Hx Genitourinary Surgery - removal of bladder cancer x2, Other - Surgery for bladder cancer - Immunizations Hx Diphtheria, Pertussis, Tetanus Vaccination: Yes Hx Pneumococcal Vaccination: 05/16/11 Review of Systems - Review of Systems -: Yes All other systems reviewed and negative Physical Exam - Vital signs Vitals: Temp Pulse Resp BP Pulse Ox 99.2 F 120 H 38 H 149/84 H 94 05/07/18 08:26 05/07/18 08:26 05/07/18 08:26 05/07/18 08:26 05/07/18 08:26 - Notes Notes: PHYSICAL EXAMINATION: GENERAL: Well-appearing, well-nourished and in mild-moderate resp distress. HEAD: Atraumatic, normocephalic. EYES: Pupils equal round and reactive to light, extraocular movements intact, sclera anicteric, conjunctiva are normal. ENT: Nares patent and without discharge. oropharynx clear without exudates. No tonsilar hypertrophy or erythema. Moist mucous membranes. NECK: Normal range of motion, supple without lymphadenopathy Chest: mild retractions noted LUNGS: wheezing throughout. HEART: Regular rate and rhythm without murmurs, rubs, gallops. ABDOMEN: Soft, nontender, nondistended abdomen. No guarding, no rebound. No masses appreciated. Normal bowel sounds present. No CVA tenderness bilaterally. Musculoskeletal: FROM to passive/active. Strength 5+/5. Abril neg. No asymmetry to LE's. Extremities: No cyanosis, clubbing, or edema b/l. Peripheral pulses 2+. Capillary refill less than 3 seconds. NEUROLOGICAL: Normal speech, normal gait. PSYCH: Normal mood, normal affect. SKIN: Warm, Dry, normal turgor, no rashes or lesions noted. Course - Re-evaluation Re-evalutation: 05/07/18 08:39 Upon evaluation, patient is noted to be tachycardic, tachypneic, with oxygen s aturation in the low to mid 90s on 34 L via nasal cannula. Labs, imaging, magnesium, Solu-Medrol, DuoNeb, and BiPAP at been ordered. 05/07/18 09:43 Patient is noted to have acute on chronic respiratory failure in the setting of exacerbation of COPD. Venous blood gas shows respiratory acidosis. Exam chest x-ray and cardiac enzymes otherwise unremarkable at this time. Patient is doing better on the BiPAP. I did place a call to our hospitalist, Sade Durham NP, who accepted pt to IMCU. - Vital Signs Vital signs: Temp Pulse Resp BP Pulse Ox 99.2 F 120 H 24 H 131/84 H 96 05/07/18 08:26 05/07/18 08:26 05/07/18 09:01 05/07/18 09:00 05/07/18 09:01 - Laboratory Result Diagrams: 05/07/18 08:42 05/07/18 08:42 Laboratory results interpreted by me: 05/07/18 05/07/18 05/07/18 08:42 08:42 08:42 WBC 10.8 H RDW 14.9 H VBG pH 7.26 L VBG pCO2 99.1 H* VBG HCO3 43.1 H Chloride 94 L Carbon Dioxide 41 H* ALT 20 L Discharge - Discharge Clinical Impression: Acute and chronic respiratory failure with hypercapnia, COPD with exacerbation Condition: Stable Disposition: ADMITTED INPATIENT Admitting Provider: [facility] Admitted: [facility] Referrals: JOSSE MORTENSEN MD [Primary Care Provider] - Follow up as needed
[2018-05-07 08:56] LABS: ABSOLUTE BASOPHILS # (AUTO) 0.1 10^3/uL (0.0-0.2); ABSOLUTE EOSINOPHILS # (AUTO) 0.1 10^3/uL (0.0-0.6); ABSOLUTE LYMPHOCYTES (AUTO) 1.8 10^3/uL (0.5-4.7); ABSOLUTE MONOCYTES (AUTO) 1.1 10^3/uL (0.1-1.4); ABSOLUTE NEUT (AUTO) 7.6 10^3/uL (1.7-8.2); BASOPHILS % (AUTO) 0.5 % (0-2); EOSINOPHILS % (AUTO) 1.1 % (0-6); HEMATOCRIT 48.3 % (37.9-51.0); HEMOGLOBIN 16.1 g/dL (13.5-17.0); LYMPHOCYTES % (AUTO) 17.1 % (13-45); MEAN CORPUSCULAR HEMOGLOBIN 29.9 pg (27.0-33.4); MEAN CORPUSCULAR HGB CONC 33.4 g/dL (32.0-36.0); MEAN CORPUSCULAR VOLUME 90 fl (80-97); MONOCYTES % (AUTO) 10.2 % (3-13); PLATELET COUNT 197 10^3/uL (150-450); RED CELL DISTRIBUTION WIDTH 14.9 % (11.5-14.0); SEGMENTED NEUTROPHILS % (AUTO) 71.1 % (42-78); TOTAL CELLS COUNTED % (AUTO) 100 %; VENOUS BLOOD BASE EXCESS 10.5 mmol/L; VENOUS BLOOD HCO3 43.1 mmol/L (20-32); VENOUS BLOOD PH 7.26 (7.30-7.42); WHITE BLOOD COUNT 10.8 10^3/uL (4.0-10.5)
--- NOTE | 2018-05-07 09:18 | RADIOLOGY REPORT (SQ) ---
EXAM DESCRIPTION: CHEST SINGLE VIEW COMPLETED DATE/TIME: 05/07/2018 9:06 am REASON FOR STUDY: sob COMPARISON: 03/16/2018 EXAM PARAMETERS: NUMBER OF VIEWS: One view. TECHNIQUE: Single frontal radiographic view of the chest acquired. RADIATION DOSE: NA LIMITATIONS: None. FINDINGS: LUNGS AND PLEURA: No opacities, masses or pneumothorax. No pleural effusion. Minimal line ar changes at the left base. MEDIASTINUM AND HILAR STRUCTURES: No masses. Contour normal. HEART AND VASCULAR STRUCTURES: Heart normal in size. Normal vasculature. BONES: No acute findings. HARDWARE: None in the chest. OTHER: No other significant finding. IMPRESSION: NO ACUTE RADIOGRAPHIC FINDING IN THE CHEST. Linear scarring atelectasis at left base un changed. TECHNICAL DOCUMENTATION: JOB ID: [id number] [employer]- All Rights Reserved Reading location - IP/workstation name: [email or web address]
[2018-05-07 09:21] LABS: VENOUS BLOOD PCO2 99.1 mmHg (35-63)
[2018-05-07 09:36] LABS: ALANINE AMINOTRANSFERASE 20 U/L (21-72); ALBUMIN 4.4 g/dL (3.5-5.0); ALKALINE PHOSPHATASE 96 U/L (38-126); ANION GAP 6 (5-19); ASPARTATE AMINO TRANSFERASE 38 U/L (17-59); BILIRUBIN,DIRECT 0.3 mg/dL (0.0-0.4); BILIRUBIN,TOTAL 0.6 mg/dL (0.2-1.3); BLOOD UREA NITROGEN 15 mg/dL (7-20); CALCIUM 9.6 mg/dL (8.4-10.2); CHLORIDE 94 mmol/L (98-107); GLUCOSE 94 mg/dL (75-110); POTASSIUM 4.7 mmol/L (3.6-5.0); SODIUM 140.9 mmol/L (137-145); TOTAL PROTEIN 7.9 g/dL (6.3-8.2)
[2018-05-07 09:38] LABS: NT PRO BNP 90 pg/mL (5-900)
[2018-05-07 09:40] LABS: CARBON DIOXIDE 41 mmol/L (22-30); TROPONIN I < 0.012 ng/mL
[2018-05-07] MEDS ORDERED: ONDANSETRON HCL INJ/PF 4 MG/2 ML SDV IV PRN (10:26)
[2018-05-07] MEDS ORDERED: MAG HYDROX/AL HYDROX/SIMETH SUSP 30 ML UDCUP PO PRN (10:26)
[2018-05-07] MEDS ORDERED: ACETAMINOPHEN 325 MG TABLET PO PRN (10:26)
[2018-05-07] MEDS ORDERED: MAGNESIUM HYDROXIDE SUSP 30 ML UDCUP PO PRN (10:26)
[2018-05-07] MEDS ORDERED: ALBUTEROL SULFATE 0.083% NEB 2.5 MG/3 ML AMPUL NEB PRN (10:26)
[2018-05-07] MEDS ORDERED: NICOTINE 7 MG/24 HR PATCH.TD24 TD PRN (10:50)
--- NOTE | 2018-05-07 10:53 | PDOC H&P ---
History of Present Illness Admission Date/PCP: 05/07/18 10:06 JOSSE MORTENSEN MD Patient complains of: dyspnea History of Present Illness: MANI REAL is a 67 year old male with a past medical history of chronic respiratory failure (home O2 dependent), COPD, hyperlipidemia, GERD, ADHD/bipolar who presented to the emergency department today with a complaint of 1 day of sudden onset dyspnea and nonproductive cough it was unresponsive to increase of home O2 and nebulizer treatments. Evaluation in the emergency department revealed acute exacerbation of his chronic respiratory failure with an unremarkable CBC,Chemistry demonstrating an elevated bicarb (41) and VBG with pH of 7.26, PCO2 99, HCO3 43.1. His chest x- ray was benign, EKG demonstrated sinus tachycardia. The patient was provided IV magnesium, nebulizer treatments, Solu-Medrol, and placed on BiPAP with improvement in his comfort, however, he remains tachycardic, tachypneic, with accessory muscle use. He is referred to the hospitalist service for admission and management of his acute on chronic respiratory failure secondary to a COPD exacerbation. Past Medical History Cardiac Medical History: Reports: Hyperlipidema Pulmonary Medical History: Reports: Asthma, Bronchitis, Chronic Obstructive Pulmonary Disease (COPD), Pneumonia, Sleep Apnea EENT Medical History: Reports: None Neurological Medical History: Reports: None Endocrine Medical History: Reports: None Malignancy Medical History: Reports: None GI Medical History: Reports: Gastroesophageal Reflux Disease, Hiatal Hernia Musculoskeltal Medical History: Reports: Arthritis Skin Medical History: Reports: None Psychiatric Medical History: Reports: Attention Deficit Hyperactivity Disorder, Bipolar Disorder Traumatic Medical History: Reports: None Hematology: Reports: None Infectious Medical History: Reports: None Past Surgical History Past Surgical History: Reports: Appendectomy, Cholecystectomy, Other - Surgery for bladder cancer Social History Information Source: Patient Lives with: Family Smoking Status: Current Every Day Smoker Cigarettes Packs Per Day: 0.1 Number of Years Smokin - 60 pack year hx Frequency of Alcohol Use: Heavy Amount of Alcoholic Beverages Per Day: 1/2 pint 2-3x week Hx Recreational Drug Use: No Drugs: None Hx Prescription Drug Abuse: No - Advance Directive Resuscitation Status: Full Code Surrogate healthcare decision maker:: The patient's , Rosa Real. Family History Family History: CAD, DM, Hypertension Parental Family History Reviewed: Yes Children Family History Reviewed: Yes Sibling(s) Family History Reviewed.: Yes Medication/Allergy Home Medications: Albuterol Sulfate [Ventolin Hfa] 2 puff IH Q6HP PRN 10/16/17 Budesonide/Formoterol Fumarate [Symbicort HFA 160-4.5 mcg Inhaler 6 gm] 2 puff IH Q12 10/16/17 Ascorbic Acid [Vitamin C] 1,000 mg PO DAILYP PRN 10/27/17 Albuterol Sulfate [Albuterol Sulfate 2.5mg/3 mL] 3 ml IH RTQ4HP PRN #1 vial.neb 11/04/17 Aspirin [Aspirin EC] 81 mg PO DAILY 03/17/18 Aspirin [Aspirin 81 mg Chewable Tablet] 81 mg PO DAILY tab.chew 03/25/18 Buspirone HCl [Buspar 10 mg Tablet] 15 mg PO Q12 tablet 03/25/18 Fluticasone Propionate [Flonase Nasal [place] 50 Mcg/[place] 16 gm] 2 spray NASL DAILY spray.pump 03/25/18 Furosemide [Lasix 20 mg Tablet] 40 mg PO DAILY tablet 03/25/18 Montelukast Sodium [Singulair 10 mg Tablet] 10 mg PO QPM tablet 03/25/18 Prednisone [Deltasone 20 mg Tablet] 20 mg PO ASDIR #10 tablet 03/25/18 Sertraline HCl [Zoloft 50 mg Tablet] 50 mg PO HSP PRN tablet 03/25/18 Allergies/Adverse Reactions: No Known Allergies Allergy (Verified 03/16/18 18:39) Review of Systems Constitutional: ABSENT: chills, fever(s), headache(s), weight gain, weight loss Eyes: ABSENT: visual disturbances Ears: ABSENT: hearing changes Cardiovascular: ABSENT: chest pain, dyspnea on exertion, edema, orthropnea, palpitations Respiratory: PRESENT: as per HPI Gastrointestinal: ABSENT: abdominal pain, constipation, diarrhea, hematemesis, hematochezia, nausea, vomiting Genitourinary: ABSENT: dysuria, hematuria Musculoskeletal: ABSENT: joint swelling Integumentary: ABSENT: rash, wounds Neurological: ABSENT: abnormal gait, abnormal speech, confusion, dizziness, focal weakness, syncope Psychiatric: ABSENT: anxiety, depression, homidical ideation, suicidal ideation Endocrine: ABSENT: cold intolerance, heat intolerance, polydipsia, polyuria Hematologic/Lymphatic: ABSENT: easy bleeding, easy bruising Physical Exam Vital Signs: Temp Pulse Resp BP Pulse Ox 99.2 F 120 H 24 H 131/84 H 96 05/07/18 08:26 05/07/18 08:26 05/07/18 09:01 05/07/18 09:00 05/07/18 09:01 Intake & Output 05/06/18 05/07/18 05/08/18 06:59 06:59 06:59 Intake Total 200 Balance 200 Weight 86.183 kg General appearance: PRESENT: disheveled, mild distress, well-developed, well-no urished Head exam: PRESENT: atraumatic, normocephalic Eye exam: PRESENT: conjunctiva pink, EOMI, PERRLA. ABSENT: scleral icterus Ear exam: PRESENT: normal external ear exam Mouth exam: PRESENT: moist, tongue midline Neck exam: ABSENT: carotid bruit, JVD, lymphadenopathy, thyromegaly Respiratory exam: PRESENT: accessory muscle use, prolonged expiratory phas, rhonchi, symmetrical, tachypnea, wheezes - Throughout. ABSENT: rales Cardiovascular exam: PRESENT: +S1, +S2, tachycardia. ABSENT: diastolic murmur, rubs Pulses: PRESENT: normal dorsalis pedis pul Vascular exam: PRESENT: normal capillary refill GI/Abdominal exam: PRESENT: normal bowel sounds, soft. ABSENT: distended, guarding, mass, organolmegaly, rebound, tenderness Rectal exam: PRESENT: deferred Extremities exam: PRESENT: full ROM. ABSENT: calf tenderness, clubbing, pedal edema Neurological exam: PRESENT: alert, awake, oriented to person, oriented to place, oriented to time, oriented to situation, CN II-XII grossly intact. ABSENT: motor sensory deficit Psychiatric exam: PRESENT: appropriate affect, normal mood. ABSENT: homicidal ideation, suicidal ideation Skin exam: PRESENT: dry, intact, warm. ABSENT: cyanosis, rash Results Laboratory Results: 05/07/18 08:42 05/07/18 08:42 05/07/18 05/07/18 05/07/18 08:42 08:42 08:42 WBC 10.8 H RBC 5.40 Hgb 16.1 Hct 48.3 MCV 90 MCH 29.9 MCHC 33.4 RDW 14.9 H Plt Count 197 Seg Neutrophils % 71.1 Lymphocytes % 17.1 Monocytes % 10.2 Eosinophils % 1.1 Basophils % 0.5 Absolute Neutrophils 7.6 Absolute Lymphocytes 1.8 Absolute Monocytes 1.1 Absolute Eosinophils 0.1 Absolute Basophils 0.1 VBG pH 7.26 L VBG pCO2 99.1 H* VBG HCO3 43.1 H VBG Base Excess 10.5 Sodium 140.9 Potassium 4.7 Chloride 94 L Carbon Dioxide 41 H* Anion Gap 6 BUN 15 Creatinine 0.81 Est GFR ( Amer) > 60 Est GFR (Non-Af Amer) > 60 Glucose 94 Calcium 9.6 Total Bilirubin 0.6 AST 38 ALT 20 L Alkaline Phosphatase 96 Total Protein 7.9 Albumin 4.4 05/07/18 08:42 Troponin I < 0.012 NT-Pro-B Natriuret Pep 90 Impressions: Chest X-Ray 05/07/18 08:33 IMPRESSION: NO ACUTE RADIOGRAPHIC FINDING IN THE CHEST. Linear scarring atelectasis at left base unchanged. Assessment & Plan - Diagnosis (1) Acute and chronic respiratory failure with hypercapnia Is this a current diagnosis for this admission?: Yes Plan: The patient presents with sudden worsening of his chronic respiratory failure; reporting 1 day of tachypnea, dyspnea at rest, wheezing, and a nonproductive cough that has been unresponsive to increase of baseline home oxygen and use of nebulizer medications. The patient denies any precipitating factors; no smoke exposure, URI symptoms, fever, chills, productive cough. He does endorse continuous tobacco use; 1-2 cigarettes daily. EKG demonstrates sinus tachycardia. Chest x-ray is benign. VBG reveals respiratory acidosis with a CO2 of 99; ABG has been requested. The patient will be admitted and monitored on continuous cardiac telemetry. He has already been provided IV magnesium, Solu-Medrol, nebulizer treatments by the ED provider. We will continue supplemental oxygen and BiPAP as needed to maintain oxygen saturations greater than 89%. Continue scheduled and as needed nebulizer treatments. Continue Solu-Medrol. Continue his home dose Singulair. The patient was recently discharged from our facility (04/02) with recommendations for trilogy; required outpatient sleep study. Will verify with the patient that he followed up with Dr. Mcdaniel as scheduled for his sleep study. Consider reconsultation of pulmonology this admission. Patient confirms that he is a FULL CODE. (2) COPD with exacerbation Is this a current diagnosis for this admission?: Yes Plan: As above. (3) Tobacco use Is this a current diagnosis for this admission?: Yes Plan: The patient reports a 45-year history of tobacco dependence; at times smoking 2- 3 packs daily. He reports that he is currently only smoking 2-3 cigarettes daily. Smoking cessation is encouraged; nicotine replacement therapies are offered. (4) Alcohol dependence Is this a current diagnosis for this admission?: Yes Plan: The patient reports chronic alcohol intake of 1/2 pint 2-3 times weekly. He denies any previous episodes of alcohol withdrawal or alcohol related seizures. Will place on multivitamin, thiamine, folic acid supplementation. Valium 2 mg p.o. every 6 hours as needed anxiety/agitation/withdrawal symptoms. Observe closely for evidence of developing alcohol withdrawal symptoms; initiate CIWA as necessary. - Time Time Spent: 30 to 50 Minutes Smoking Cessation Education: 3 to 10 minutes Medications reviewed and adjusted accordingly: Yes Anticipated discharge: Home
[2018-05-07 11:15] LABS: ARTERIAL BLOOD BASE EXCESS 5.9 mmol/L; ARTERIAL BLOOD H2CO3 2.31 mmol/L (1.05-1.35); ARTERIAL BLOOD HCO3 35.9 mmol/L (20-24); ARTERIAL BLOOD O2 SATURATION 86.3 % (94-98); ARTERIAL BLOOD PH 7.29 (7.35-7.45); ARTERIAL BLOOD TOTAL CO2 38.2 mmol/L (23-27)
[2018-05-07 11:17] LABS: ARTERIAL BLOOD FIO2 40%
[2018-05-07 11:18] LABS: ARTERIAL BLOOD PCO2 76.8 mmHg (35-45)
[2018-05-07] MEDS: FOLIC ACID 1 MG TABLET PO SCH (14:11)
[2018-05-07] MEDS: METHYLPREDNISOLONE INJ 40 MG/1 ML SDV IV SCH ×2 (14:15→21:27)
[2018-05-07] MEDS: HEPARIN SOD (PORCINE) 5,000 UNIT/ML 1 ML SYRINGE SUBCUT SCH ×2 (14:16→21:27)
[2018-05-07] MEDS: IPRATROPIUM/ALBUTEROL 0.5-2.5 MG/3 ML AMPUL NEB SCH ×2 (14:33→20:52)
--- NOTE | 2018-05-07 15:03 | EKG REPORT ---
SEVERITY:- ABNORMAL ECG - SINUS TACHYCARDIA PROBABLE INFERIOR INFARCT, AGE INDETERMINATE, ST ELEVATIONS UNCHANGED FROM 03/16/18 EKG. : Confirmed by: Phil De Leon MD 07-May-2018 15:02:51
[2018-05-07 16:28] LABS: ARTERIAL BLOOD BASE EXCESS 7.1 mmol/L; ARTERIAL BLOOD H2CO3 2.44 mmol/L (1.05-1.35); ARTERIAL BLOOD HCO3 37.5 mmol/L (20-24); ARTERIAL BLOOD O2 SATURATION 95.4 % (94-98); ARTERIAL BLOOD PH 7.28 (7.35-7.45); ARTERIAL BLOOD PO2 89.2 mmHg (80-100)
[2018-05-07 16:32] LABS: ARTERIAL BLOOD FIO2 35%
[2018-05-07] MEDS: MULTIVIT-STRESS FORMULA/ZINC TABLET PO SCH (17:41)
[2018-05-07] MEDS: LEVOFLOXACIN 750 MG/D5W RTU 750 MG/150 ML RTUPB IV SCH (17:41)
[2018-05-07] MEDS: THIAMINE HCL 100 MG TABLET PO SCH (17:41)
[2018-05-07] MEDS: MONTELUKAST SODIUM 10 MG TABLET PO SCH (17:41)
[2018-05-07 20:49] LABS: ARTERIAL BLOOD BASE EXCESS 8.8 mmol/L; ARTERIAL BLOOD H2CO3 2.31 mmol/L (1.05-1.35); ARTERIAL BLOOD HCO3 38.4 mmol/L (20-24); ARTERIAL BLOOD O2 SATURATION 96.5 % (94-98); ARTERIAL BLOOD PH 7.32 (7.35-7.45); ARTERIAL BLOOD PO2 97.2 mmHg (80-100); ARTERIAL BLOOD TOTAL CO2 40.7 mmol/L (23-27)
[2018-05-07 20:50] LABS: ARTERIAL BLOOD FIO2 35%
[2018-05-07 20:51] LABS: ARTERIAL BLOOD PCO2 76.9 mmHg (35-45)
[2018-05-07] MEDS: BUSPIRONE HCL 10 MG TABLET PO SCH (21:27)
[2018-05-07] MEDS: FAMOTIDINE 20 MG TABLET PO SCH (21:27)
[2018-05-07] MEDS: CEFEPIME 1 GM/D5W RTU 1 GM/50 ML RTUPB IV SCH (21:27)
[2018-05-08] MEDS: NORMAL SALINE 1000 ML 1,000 ML IV PRN ×2 (00:02→09:45)
[2018-05-08] MEDS: IPRATROPIUM/ALBUTEROL 0.5-2.5 MG/3 ML AMPUL NEB SCH ×4 (02:15→19:50)
[2018-05-08] MEDS: METHYLPREDNISOLONE INJ 40 MG/1 ML SDV IV SCH ×3 (05:21→21:14)
[2018-05-08] MEDS: HEPARIN SOD (PORCINE) 5,000 UNIT/ML 1 ML SYRINGE SUBCUT SCH ×3 (05:21→21:15)
[2018-05-08 05:43] LABS: HEMATOCRIT 42.2 % (37.9-51.0); MEAN CORPUSCULAR HEMOGLOBIN 29.9 pg (27.0-33.4); MEAN CORPUSCULAR HGB CONC 33.1 g/dL (32.0-36.0); MEAN CORPUSCULAR VOLUME 90 fl (80-97); PLATELET COUNT 169 10^3/uL (150-450); RED BLOOD COUNT 4.68 10^6/uL (4.35-5.55); RED CELL DISTRIBUTION WIDTH 14.3 % (11.5-14.0); WHITE BLOOD COUNT 7.3 10^3/uL (4.0-10.5)
[2018-05-08 05:58] LABS: ANION GAP 5 (5-19); BLOOD UREA NITROGEN 19 mg/dL (7-20); CALCIUM 8.9 mg/dL (8.4-10.2); CARBON DIOXIDE 37 mmol/L (22-30); CHLORIDE 96 mmol/L (98-107); GLUCOSE 131 mg/dL (75-110); SODIUM 137.8 mmol/L (137-145)
[2018-05-08 06:05] LABS: POTASSIUM 5.8 mmol/L (3.6-5.0)
[2018-05-08] MEDS: DIAZEPAM 2 MG TABLET PO PRN ×2 (07:49→14:31)
[2018-05-08] MEDS: SERTRALINE HCL 50 MG TABLET PO SCH (09:43)
[2018-05-08] MEDS: FOLIC ACID 1 MG TABLET PO SCH (09:43)
[2018-05-08] MEDS: THIAMINE HCL 100 MG TABLET PO SCH (09:43)
[2018-05-08] MEDS: DOCUSATE SODIUM 100 MG CAPSULE PO SCH (09:43)
[2018-05-08] MEDS: FUROSEMIDE 20 MG TABLET PO SCH (09:43)
[2018-05-08] MEDS: FAMOTIDINE 20 MG TABLET PO SCH ×2 (09:43→21:15)
[2018-05-08] MEDS: ASPIRIN 81 MG TABLET, ENT COATED PO SCH (09:43)
[2018-05-08] MEDS: MULTIVIT-STRESS FORMULA/ZINC TABLET PO SCH (09:44)
[2018-05-08] MEDS: FLUTICASONE NASAL SPRAY 50 MCG/SPRY 120 SPRAY/16 GM NASL SCH (09:44)
[2018-05-08] MEDS: CEFEPIME 1 GM/D5W RTU 1 GM/50 ML RTUPB IV SCH ×2 (09:44→21:20)
[2018-05-08] MEDS: BUSPIRONE HCL 10 MG TABLET PO SCH ×2 (09:44→21:15)
[2018-05-08 11:59] LABS: ARTERIAL BLOOD BASE EXCESS 8.4 mmol/L; ARTERIAL BLOOD HCO3 38.4 mmol/L (20-24); ARTERIAL BLOOD O2 SATURATION 96.2 % (94-98); ARTERIAL BLOOD TOTAL CO2 40.8 mmol/L (23-27)
[2018-05-08 12:00] LABS: ARTERIAL BLOOD FIO2 35%
[2018-05-08 12:01] LABS: ARTERIAL BLOOD PCO2 79.8 mmHg (35-45)
--- NOTE | 2018-05-08 12:17 | RADIOLOGY REPORT (SQ) ---
EXAM DESCRIPTION: CHEST SINGLE VIEW COMPLETED DATE/TIME: 05/08/2018 12:07 pm REASON FOR STUDY: dyspnea, hypoxia, ? RLL PNA COMPARISON: Chest films 05/07/2018, 03/16/2018, 10/29/2017 EXAM PARAMETERS: NUMBER OF VIEWS: One view. TECHNIQUE: Single frontal radiographic view of the chest acquired. RADIATION DOSE: NA LIMITATIONS: None. FINDINGS: LUNGS AND PLEURA: No opacities, masses or pneumothorax. No pleural effusion. MEDIASTINUM AND HILAR STRUCTURES: No masses. Contour normal. HEART AND VASCULAR STRUCTURES: Heart normal in size. Normal vasculature. BONES: No acute findings. HARDWARE: None in the chest. OTHER: No other significant finding. IMPRESSION: NO ACUTE RADIOGRAPHIC FINDING IN THE CHEST. TECHNICAL DOCUMENTATION: JOB ID: [id number] [employer]- All Rights Reserved Reading location - IP/workstation name: [facility]
[2018-05-08] MEDS ORDERED: LACTULOSE SYRUP 20 GM/30 ML UDCUP PO ONE (13:44)
--- NOTE | 2018-05-08 13:49 | PDOC PROGRESS REPORT ---
Subjective Progress Note for:: 05/08/18 Subjective:: The patient is a 67 year old male with a past medical history of chronic respiratory failure (home O2 dependent), COPD, hyperlipidemia, GERD, ADHD/bipolar who was admitted 05/07/2018 for acute on chronic respiratory failure with hypoxia and hypercapnia secondary to a COPD exacerbation. The patient was seen on morning rounds. He was initially found sitting up to t he edge of the bed on supplemental oxygen via nasal cannula 3.5 L/min eating his breakfast. He appeared to be tachypneic with slight increased work of breathing, however, stated that he was feeling better today and was able to speak full sentences. I was called to the bedside shortly later by the nursing staff who reported increased distress. Patient was placed back on BiPAP and was noted to be tachypneic with accessory muscle use; lung sounds were diminished/tight throughout with end expiratory wheezing noted bilaterally. Patient denies fever, chills, headache, chest pain, palpitations, orthopnea, abdominal pain, nausea vomiting and diarrhea. He has no specific questions or concerns today. Reason For Visit: A/C RESPIRATORY FAILURE,COPD EXACERBATION Physical Exam Vital Signs: Temp Pulse Resp BP Pulse Ox 98.6 F 97 25 H 118/76 94 05/08/18 11:36 05/08/18 11:36 05/08/18 11:40 05/08/18 11:36 05/08/18 11:40 Intake & Output 05/07/18 05/08/18 05/09/18 06:59 06:59 06:59 Intake Total 1084 1259 Output Total 2300 420 Balance -1216 839 Weight 183.5 kg General appearance: PRESENT: no acute distress, disheveled, morbidly obese, well-developed, well-nourished Head exam: PRESENT: atraumatic, normocephalic Eye exam: PRESENT: conjunctiva pink, EOMI, PERRLA. ABSENT: scleral icterus Ear exam: PRESENT: normal external ear exam Mouth exam: PRESENT: moist, tongue midline Neck exam: ABSENT: carotid bruit, JVD, lymphadenopathy, thyromegaly Respiratory exam: PRESENT: accessory muscle use, decreased breath sounds, prolonged expiratory phas, symmetrical, tachypnea, wheezes. ABSENT: rales, rhonchi Cardiovascular exam: PRESENT: RRR, tachycardia. ABSENT: diastolic murmur, rubs, systolic murmur Pulses: PRESENT: normal dorsalis pedis pul Vascular exam: PRESENT: normal capillary refill GI/Abdominal exam: PRESENT: normal bowel sounds, soft. ABSENT: distended, guarding, mass, organolmegaly, rebound, tenderness Rectal exam: PRESENT: deferred Extremities exam: PRESENT: full ROM. ABSENT: calf tenderness, clubbing, pedal edema Neurological exam: PRESENT: alert, awake, oriented to person, oriented to place, oriented to time, oriented to situation, CN II-XII grossly intact. ABSENT: motor sensory deficit Psychiatric exam: PRESENT: appropriate affect, normal mood. ABSENT: homicidal ideation, suicidal ideation Skin exam: PRESENT: dry, intact, warm. ABSENT: cyanosis, rash Results Laboratory Results: 05/08/18 05:00 05/08/18 05:00 05/07/18 05/07/18 05/08/18 16:00 18:45 05:00 WBC 7.3 RBC 4.68 Hgb 14.0 D Hct 42.2 MCV 90 MCH 29.9 MCHC 33.1 RDW 14.3 H Plt Count 169 Carbonic Acid 2.44 H 2.31 H HCO3/H2CO3 Ratio 15:1 16:1 ABG pH 7.28 L 7.32 L ABG pCO2 81.0 H* 76.9 H* ABG pO2 89.2 97.2 ABG HCO3 37.5 H 38.4 H ABG O2 Saturation 95.4 96.5 ABG Base Excess 7.1 8.8 FiO2 35% 35% Sodium Potassium Chloride Carbon Dioxide Anion Gap BUN Creatinine Est GFR ( Amer) Est GFR (Non-Af Amer) Glucose Calcium 05/08/18 05/08/18 05:00 11:33 WBC RBC Hgb Hct MCV MCH MCHC RDW Plt Count Carbonic Acid 2.40 H HCO3/H2CO3 Ratio 16:1 ABG pH 7.30 L ABG pCO2 79.8 H* ABG pO2 95.0 ABG HCO3 38.4 H ABG O2 Saturation 96.2 ABG Base Excess 8.4 FiO2 35% Sodium 137.8 Potassium 5.8 H D Chloride 96 L Carbon Dioxide 37 H Anion Gap 5 BUN 19 Creatinine 0.73 Est GFR ( Amer) > 60 Est GFR (Non-Af Amer) > 60 Glucose 131 H Calcium 8.9 05/07/18 08:42 Troponin I < 0.012 NT-Pro-B Natriuret Pep 90 Impressions: Chest X-Ray 05/08/18 00:00 IMPRESSION: NO ACUTE RADIOGRAPHIC FINDING IN THE CHEST. Assessment & Plan - Diagnosis (1) Acute and chronic respiratory failure with hypercapnia Is this a current diagnosis for this admission?: Yes Plan: Continues to be BiPAP dependent with hypercapnia and hypoxia on ABGs. On exam, patient is tachypneic with accessory muscle use and tight lung sounds with end expiratory wheezing and rhonchi. EKG demonstrates sinus tachycardia. Chest x-ray is benign. Repeat chest x-ray today after receiving IV fluids is unchanged; lower suspicion of underlying pneumonia at this time. ABG reveals pH 7.30, PCO2 79.8, PO2 95, HCO3 38.4 The patient is admitted to [facility] and monitored on continuous cardiac telemetry. We will continue supplemental oxygen and BiPAP as needed to maintain oxygen saturations greater than 89%. Continue scheduled and as needed nebulizer treatments. Continue Solu-Medrol. Continue his home dose Singulair. The patient was recently discharged from our facility (04/02) with recommendations for trilogy; required outpatient sleep study. Will verify with the patient that he followed up with Dr. Mcdaniel as scheduled for his sleep study. Pulmonology has been consulted; appreciate Dr. Mcdaniel's assistance. The patient was empirically placed on IV Levaquin and cefepime for a possible RLL pneumonia (overnight patient reported right chest wall/pleuritic pain and was noted to have increased rhonchi and wheezing to the right lower chest garza). Repeat chest x-ray this morning is normal, patient remains afebrile, WBCs are normal. Consider discontinuing antibiotics if the patient remains afebrile with a normal WBC for an additional 24 hours. Patient confirms that he is a FULL CODE. (2) COPD with exacerbation Is this a current diagnosis for this admission?: Yes Plan: As above. (3) Tobacco use Is this a current diagnosis for this admission?: Yes Plan: The patient reports a 45-year history of tobacco dependence; at times smoking 2- 3 packs daily. He reports that he is currently only smoking 2-3 cigarettes daily. Smoking cessation is encouraged; nicotine replacement therapies are offered. (4) Alcohol dependence Is this a current diagnosis for this admission?: Yes Plan: The patient reports chronic alcohol intake of 1/2 pint 2-3 times weekly. He denies any previous episodes of alcohol withdrawal or alcohol related seizures. Will place on multivitamin, thiamine, folic acid supplementation. Valium 2 mg p.o. every 6 hours as needed anxiety/agitation/withdrawal symptoms. Observe closely for evidence of developing alcohol withdrawal symptoms; initiate CIWA as necessary. (5) Hyperkalemia Is this a current diagnosis for this admission?: Yes Plan: Potassium of 5.8. IV fluids are discontinued. Continue patient's home dose of furosemide. Lactulose x1. (6) Morbid obesity with BMI of 50.0-59.9, adult Is this a current diagnosis for this admission?: Yes Plan: Dietary discretion is advised. The registered dietitian is consulted. - Time Time Spent with patient: 25-34 minutes Medications reviewed and adjusted accordingly: Yes Anticipated discharge: Home
[2018-05-08] MEDS: MONTELUKAST SODIUM 10 MG TABLET PO SCH (18:08)
[2018-05-08] MEDS: LEVOFLOXACIN 750 MG/D5W RTU 750 MG/150 ML RTUPB IV SCH (18:08)
[2018-05-09] MEDS: IPRATROPIUM/ALBUTEROL 0.5-2.5 MG/3 ML AMPUL NEB SCH ×4 (01:50→20:28)
[2018-05-09] MEDS: DIAZEPAM 2 MG TABLET PO PRN ×3 (05:09→21:24)
[2018-05-09] MEDS: METHYLPREDNISOLONE INJ 40 MG/1 ML SDV IV SCH ×3 (05:09→21:23)
[2018-05-09] MEDS: HEPARIN SOD (PORCINE) 5,000 UNIT/ML 1 ML SYRINGE SUBCUT SCH ×3 (05:09→21:23)
[2018-05-09 05:37] LABS: HEMATOCRIT 41.8 % (37.9-51.0); HEMOGLOBIN 13.9 g/dL (13.5-17.0); MEAN CORPUSCULAR HEMOGLOBIN 29.7 pg (27.0-33.4); MEAN CORPUSCULAR HGB CONC 33.2 g/dL (32.0-36.0); MEAN CORPUSCULAR VOLUME 89 fl (80-97); PLATELET COUNT 196 10^3/uL (150-450); RED BLOOD COUNT 4.67 10^6/uL (4.35-5.55); RED CELL DISTRIBUTION WIDTH 14.6 % (11.5-14.0); WHITE BLOOD COUNT 13.4 10^3/uL (4.0-10.5)
[2018-05-09 05:56] LABS: BLOOD UREA NITROGEN 25 mg/dL (7-20); CALCIUM 9.2 mg/dL (8.4-10.2); GLUCOSE 134 mg/dL (75-110); POTASSIUM 4.8 mmol/L (3.6-5.0)
[2018-05-09 06:01] LABS: ANION GAP 6 (5-19); CARBON DIOXIDE 36 mmol/L (22-30); CHLORIDE 98 mmol/L (98-107); SODIUM 139.6 mmol/L (137-145)
[2018-05-09] MEDS: FLUTICASONE NASAL SPRAY 50 MCG/SPRY 120 SPRAY/16 GM NASL SCH (10:40)
[2018-05-09] MEDS: DOCUSATE SODIUM 100 MG CAPSULE PO SCH (11:03)
[2018-05-09] MEDS: BUSPIRONE HCL 10 MG TABLET PO SCH ×2 (11:04→21:24)
[2018-05-09] MEDS: FUROSEMIDE 20 MG TABLET PO SCH (11:05)
[2018-05-09] MEDS: THIAMINE HCL 100 MG TABLET PO SCH (11:06)
[2018-05-09] MEDS: FOLIC ACID 1 MG TABLET PO SCH (11:06)
[2018-05-09] MEDS: FAMOTIDINE 20 MG TABLET PO SCH ×2 (11:07→21:24)
[2018-05-09] MEDS: SERTRALINE HCL 50 MG TABLET PO SCH (11:07)
[2018-05-09] MEDS: ASPIRIN 81 MG TABLET, ENT COATED PO SCH (11:07)
[2018-05-09] MEDS: CEFEPIME 1 GM/D5W RTU 1 GM/50 ML RTUPB IV SCH ×2 (11:08→21:24)
[2018-05-09] MEDS: MULTIVIT-STRESS FORMULA/ZINC TABLET PO SCH (11:10)
--- NOTE | 2018-05-09 14:29 | PDOC PROGRESS REPORT ---
Subjective Progress Note for:: 05/09/18 Subjective:: The patient is a 67 year old male with a past medical history of chronic respiratory failure (home O2 dependent), COPD, hyperlipidemia, GERD, ADHD/bipolar who was admitted 05/07/2018 for acute on CRF with hypoxia and hypercapnia secondary to a COPD exacerbation. He is home dependent on 3.5 L of o2 via NC and has been on o2 for approx 5 years per him. During my evaluation the patient on 6L of o2 and leaning on the side of the table with his head upright. He was however able to speak in mostly complete sentences. He has not been spending much time OOB. His last admission was 1 month ago and lasted about 7 days. He admits to choosing between eating and breathing at times at home. He continues to have a mild expiratory wheeze. Denies F/C overnight. He feels breathing has improved since admission, but is not back at baseline and has some concern about going home and bouncing back. He will not be able to obtain triology device until after the first of the year. Reason For Visit: A/C RESPIRATORY FAILURE,COPD EXACERBATION Physical Exam Vital Signs: Temp Pulse Resp BP Pulse Ox 97.4 F 67 20 136/85 H 99 05/09/18 07:28 05/09/18 08:15 05/09/18 08:15 05/09/18 07:28 05/09/18 08:15 Intake & Output 05/08/18 05/09/18 05/10/18 06:59 06:59 06:59 Intake Total 1084 3296 Output Total 2300 1600 Balance -1216 1696 Weight 183.5 kg 202.3 kg General appearance: PRESENT: cooperative, disheveled Head exam: PRESENT: atraumatic Eye exam: PRESENT: PERRLA Ear exam: PRESENT: normal external ear exam Mouth exam: PRESENT: moist, neck supple Respiratory exam: PRESENT: prolonged expiratory phas, wheezes Cardiovascular exam: PRESENT: RRR, +S1, +S2 Pulses: PRESENT: normal radial pulses, normal dorsalis pedis pul GI/Abdominal exam: PRESENT: soft, other - non-tender, non-distended Rectal exam: PRESENT: deferred Extremities exam: PRESENT: full ROM, other - minimal edema Musculoskeletal exam: PRESENT: full ROM Neurological exam: PRESENT: alert, altered, awake, oriented to person, oriented to place, oriented to time, oriented to situation, CN II-XII grossly intact Psychiatric exam: PRESENT: normal mood Results Laboratory Results: 05/09/18 05:25 05/09/18 05:25 05/09/18 05/09/18 05:25 05:25 WBC 13.4 H RBC 4.67 Hgb 13.9 Hct 41.8 MCV 89 MCH 29.7 MCHC 33.2 RDW 14.6 H Plt Count 196 Sodium 139.6 Potassium 4.8 Chloride 98 Carbon Dioxide 36 H Anion Gap 6 BUN 25 H Creatinine 0.73 Est GFR ( Amer) > 60 Est GFR (Non-Af Amer) > 60 Glucose 134 H Calcium 9.2 05/07/18 08:42 Troponin I < 0.012 NT-Pro-B Natriuret Pep 90 Impressions: Chest X-Ray 05/08/18 00:00 IMPRESSION: NO ACUTE RADIOGRAPHIC FINDING IN THE CHEST. Assessment & Plan - Diagnosis (1) Acute and chronic respiratory failure with hypercapnia Is this a current diagnosis for this admission?: Yes (2) COPD with exacerbation Is this a current diagnosis for this admission?: Yes (3) Hyperkalemia Is this a current diagnosis for this admission?: Yes (4) Tobacco use Is this a current diagnosis for this admission?: Yes (5) Alcohol dependence Is this a current diagnosis for this admission?: Yes - Time Time Spent with patient: 25-34 minutes Smoking Cessation Education: over 10 minutes Medications reviewed and adjusted accordingly: Yes Anticipated discharge: Home Within: within 72 hours - Inpatient Certification Based on my medical assessment, after consideration of the patient's comorbidities, presenting symptoms, or acuity I expect that the services needed warrant INPATIENT care.: Yes I certify that my determination is in accordance with my understanding of Medicare's requirements for reasonable and necessary INPATIENT services [42 CFR 412.3e].: Yes Medical Necessity: Significant Comorbidiites Make Outpatient Treatment Too Risky, Need Close Monitoring Due to Risk of Patient Decompensation - Plan Summary Plan Summary: (1) Acute and chronic respiratory failure with hypercapnia Is this a current diagnosis for this admission?: Yes Plan: -Continues to wheeze. Will increase solumedrol from 40mg IV q8h to q6h x 1 day and then plan to taper off from there. -suspect leukocytosis is from iv steroids. monitoring -Continues to wean o2 as able. continue supplemental oxygen and BiPAP as needed to maintain oxygen saturations between 89%-94% given his chronic hypoxia and hypercapnia. -ABG's show primarily chronic issues. -CXR does not show acute process, however he has improved since being on abx. Given his decline could be quick, and getting him off intubation would be very difficult we will continue with abx therapy. Plan to -complete levaquin couse. Cefepime can be continued in hospital, but will need to be d/c prior to discharge or switched to something po. -Continue scheduled and as needed nebulizer treatments and Singulair. -The patient was recently discharged from our facility (04/02) with recommendations for trilogy. Patient had initial sleep study after most recent d/c, but cannot afford the second sleep study needed to acquire triology settings. -Pulmonology has been consulted; we appreciate Dr. Mcdaniel's assistance. -check mag level (2) COPD with exacerbation Is this a current diagnosis for this admission?: Yes Plan: As above. (3) Tobacco use Is this a current diagnosis for this admission?: Yes Plan: The patient reports a 45-year history of tobacco dependence; at times smoking 2- 3 packs daily. He reports that he is currently only smoking 2-3 cigarettes daily. Smoking cessation is encouraged; nicotine replacement therapies are offered. (4) Alcohol dependence Is this a current diagnosis for this admission?: Yes Plan: No issues reported. Denies rehab The patient reports chronic alcohol intake of 1 pint weekly. Last drink 05/07 He denies any previous episodes of alcohol related seizures. He is receiving vitamin supplementation. Valium 2 mg p.o. every 6 hours as needed anxiety/agitation/withdrawal symptoms. CIWA unavailable at this hospital. Symptoms to monitor discussed with nursing aware to monitor closely. (5) Hyperkalemia Is this a current diagnosis for this admission?: Yes Plan: improved with Lasix and Lactulose. Monitoring (6) Morbid obesity with BMI of 50.0-59.9, adult Is this a current diagnosis for this admission?: Yes Plan: Dietary discretion is advised. RD has been consulted Disposition: Full Code. Respiratory status needs to be more stable prior to d/c. Per pulm recommendation during last visit he needs Triology on d/c. Given he has history of not following up with pulmonology and his respiratory status can decline quickly, he needs to be more stable prior to discharge. Should he end up intubated he would most likely be very difficult to get off. He needs to at least be stable back on home o2 level of 3.5L. Currently on 6L
[2018-05-09] MEDS: MONTELUKAST SODIUM 10 MG TABLET PO SCH (18:19)
[2018-05-09] MEDS: LEVOFLOXACIN 750 MG/D5W RTU 750 MG/150 ML RTUPB IV SCH (18:20)
[2018-05-10] MEDS: IPRATROPIUM/ALBUTEROL 0.5-2.5 MG/3 ML AMPUL NEB SCH ×4 (02:11→21:03)
[2018-05-10] MEDS: METHYLPREDNISOLONE INJ 40 MG/1 ML SDV IV SCH ×4 (02:55→21:00)
[2018-05-10] MEDS: HEPARIN SOD (PORCINE) 5,000 UNIT/ML 1 ML SYRINGE SUBCUT SCH ×3 (05:13→22:18)
[2018-05-10 05:23] LABS: ABSOLUTE LYMPHOCYTES (AUTO) 0.7 10^3/uL (0.5-4.7); ABSOLUTE MONOCYTES (AUTO) 0.4 10^3/uL (0.1-1.4); BASOPHILS % (AUTO) 0.3 % (0-2); HEMATOCRIT 41.9 % (37.9-51.0); HEMOGLOBIN 13.9 g/dL (13.5-17.0); LYMPHOCYTES % (AUTO) 9.7 % (13-45); MEAN CORPUSCULAR HEMOGLOBIN 29.5 pg (27.0-33.4); MEAN CORPUSCULAR HGB CONC 33.1 g/dL (32.0-36.0); MEAN CORPUSCULAR VOLUME 89 fl (80-97); MONOCYTES % (AUTO) 5.7 % (3-13); PLATELET COUNT 194 10^3/uL (150-450); RED BLOOD COUNT 4.69 10^6/uL (4.35-5.55); RED CELL DISTRIBUTION WIDTH 14.5 % (11.5-14.0); SEGMENTED NEUTROPHILS % (AUTO) 84.3 % (42-78); TOTAL CELLS COUNTED % (AUTO) 100 %; WHITE BLOOD COUNT 7.1 10^3/uL (4.0-10.5)
[2018-05-10 05:48] LABS: BLOOD UREA NITROGEN 25 mg/dL (7-20); GLUCOSE 198 mg/dL (75-110); POTASSIUM 4.6 mmol/L (3.6-5.0)
[2018-05-10 05:53] LABS: CARBON DIOXIDE 38 mmol/L (22-30); CHLORIDE 98 mmol/L (98-107); SODIUM 140.1 mmol/L (137-145)
[2018-05-10 05:57] LABS: ANION GAP 4 (5-19)
[2018-05-10] MEDS: DOCUSATE SODIUM 100 MG CAPSULE PO SCH (10:02)
[2018-05-10] MEDS: DIAZEPAM 2 MG TABLET PO PRN ×3 (10:03→22:55)
[2018-05-10] MEDS: FOLIC ACID 1 MG TABLET PO SCH (10:05)
[2018-05-10] MEDS: BUSPIRONE HCL 10 MG TABLET PO SCH ×2 (10:05→22:18)
[2018-05-10] MEDS: FAMOTIDINE 20 MG TABLET PO SCH ×2 (10:05→22:18)
[2018-05-10] MEDS: ASPIRIN 81 MG TABLET, ENT COATED PO SCH (10:06)
[2018-05-10] MEDS: SERTRALINE HCL 50 MG TABLET PO SCH (10:06)
[2018-05-10] MEDS: FUROSEMIDE 20 MG TABLET PO SCH (10:06)
[2018-05-10] MEDS: THIAMINE HCL 100 MG TABLET PO SCH (10:06)
[2018-05-10] MEDS: CEFEPIME 1 GM/D5W RTU 1 GM/50 ML RTUPB IV SCH (10:07)
[2018-05-10] MEDS: FLUTICASONE NASAL SPRAY 50 MCG/SPRY 120 SPRAY/16 GM NASL SCH (10:12)
[2018-05-10] MEDS ORDERED: METHYLPREDNISOLONE INJ 40 MG/1 ML SDV IV ONE (10:56)
--- NOTE | 2018-05-10 11:14 | PDOC PROGRESS REPORT ---
Subjective Progress Note for:: 05/10/18 Subjective:: The patient is a 67 year old male with a past medical history of chronic respiratory failure (home O2 dependent), COPD, hyperlipidemia, GERD, ADHD/bipolar who was admitted 05/07/2018 for acute on CRF with hypoxia and hypercapnia secondary to a COPD exacerbation. He is home dependent on 3.5 L of o2 via NC and has been on o2 for approx 5 years per him. Again today Mr Real is wearing 6L of o2 during my evaluation. He recently came off the bipap. He reports a "sinus" style DAVIDSON and thinks it may be related to his oxygen, so his o2 was turned down to 4.5L prior to leaving the room. He continues to feel breathing has improved, but continues to not be at baseline. He does not feel comfortable going home at this point, and continues to have a mild wheeze that is above his baseline. He denies F/C and acute changes in breathing. He is eating, but does have to take breaks to catch his breathe. Nursing confirms the above information. He is again speaking mostly in complete sentences Reason For Visit: A/C RESPIRATORY FAILURE,COPD EXACERBATION Physical Exam Vital Signs: Temp Pulse Resp BP Pulse Ox 97.4 F 80 22 H 139/84 H 100 05/10/18 07:36 05/10/18 07:36 05/10/18 07:36 05/10/18 07:36 05/10/18 07:36 Intake & Output 05/09/18 05/10/18 05/11/18 06:59 06:59 06:59 Intake Total 3296 1250 Output Total 1600 650 Balance 1696 600 Weight 202.3 kg 85 kg General appearance: PRESENT: no acute distress, disheveled Head exam: PRESENT: atraumatic Eye exam: PRESENT: conjunctiva pink, EOMI, PERRLA. ABSENT: scleral icterus Ear exam: PRESENT: normal external ear exam Mouth exam: PRESENT: moist, neck supple, tongue midline Teeth exam: PRESENT: other - no teeth Respiratory exam: PRESENT: decreased breath sounds, prolonged expiratory phas, wheezes Cardiovascular exam: PRESENT: RRR, +S1, +S2 GI/Abdominal exam: PRESENT: soft, other - +bs, non-tender, non-distended Rectal exam: PRESENT: deferred Extremities exam: PRESENT: full ROM. ABSENT: calf tenderness, pedal edema Musculoskeletal exam: PRESENT: full ROM Neurological exam: PRESENT: alert, awake, oriented to person, oriented to place, oriented to time, oriented to situation, CN II-XII grossly intact. ABSENT: motor sensory deficit Psychiatric exam: PRESENT: normal mood Results Laboratory Results: 05/10/18 04:26 05/10/18 04:26 05/10/18 05/10/18 04:26 04:26 WBC 7.1 RBC 4.69 Hgb 13.9 Hct 41.9 MCV 89 MCH 29.5 MCHC 33.1 RDW 14.5 H Plt Count 194 Seg Neutrophils % 84.3 H Lymphocytes % 9.7 L Monocytes % 5.7 Eosinophils % 0.0 Basophils % 0.3 Absolute Neutrophils 6.0 Absolute Lymphocytes 0.7 Absolute Monocytes 0.4 Absolute Eosinophils 0.0 Absolute Basophils 0.0 Sodium 140.1 Potassium 4.6 Chloride 98 Carbon Dioxide 38 H Anion Gap 4 L BUN 25 H Creatinine 0.74 Est GFR ( Amer) > 60 Est GFR (Non-Af Amer) > 60 Glucose 198 H Calcium 9.0 Magnesium 2.2 05/07/18 08:42 Troponin I < 0.012 NT-Pro-B Natriuret Pep 90 Impressions: Chest X-Ray 05/08/18 00:00 IMPRESSION: NO ACUTE RADIOGRAPHIC FINDING IN THE CHEST. Assessment & Plan - Diagnosis (1) Acute and chronic respiratory failure with hypercapnia Is this a current diagnosis for this admission?: Yes (2) COPD with exacerbation Is this a current diagnosis for this admission?: Yes (3) Hyperkalemia Is this a current diagnosis for this admission?: Yes (4) Tobacco use Is this a current diagnosis for this admission?: Yes (5) Alcohol dependence Is this a current diagnosis for this admission?: Yes - Time Time Spent with patient: 25-34 minutes Smoking Cessation Education: 3 to 10 minutes Medications reviewed and adjusted accordingly: Yes - Inpatient Certification Based on my medical assessment, after consideration of the patient's comorbidities, presenting symptoms, or acuity I expect that the services needed warrant INPATIENT care.: Yes I certify that my determination is in accordance with my understanding of Medicare's requirements for reasonable and necessary INPATIENT services [42 CFR 412.3e].: Yes - Plan Summary Plan Summary: (1) Acute and chronic respiratory failure with hypercapnia Is this a current diagnosis for this admission?: Yes Plan: -Continues to wheezee, so we will continue solumedrol from 40mg IV q6h -give additional one time dose of iv solumedrol 40mg today -suspect leukocytosis was most likely from iv steroids. today WBC WNL -Continues to wean o2 as able. continue supplemental oxygen and BiPAP as needed to maintain o2 saturations 89%-94% -repeat ABG today -CXR does not show acute process, however he has improved since being on abx. Given his decline could be quick, and getting him off intubation would be very difficult we will continue with abx therapy. Plan to discuss abx selection with attending. -Continue scheduled and as needed nebulizer treatments and Singulair. -The patient was recently discharged from our facility (04/02) with recommendations for trilogy. Patient had initial sleep study after most recent d/c, but cannot afford the second sleep study needed to acquire triology settings. -Pulmonology has been consulted; we appreciate Dr. Mcdaniel's assistance. -no sputum or blood cultures were ordered on admission. (2) COPD with exacerbation Is this a current diagnosis for this admission?: Yes Plan: As above. (3) Tobacco use Is this a current diagnosis for this admission?: Yes Plan: -The patient reports a 45-year history of tobacco dependence; at times smoking 2-3 packs daily. -He reports that he is currently only smoking 2-3 cigarettes daily. -Smoking cessation is encouraged; nicotine replacement therapies are offered. (4) Alcohol dependence Is this a current diagnosis for this admission?: Yes Plan: -No issues reported. Denies rehab -The patient reports chronic alcohol intake of 1 pint weekly. Last drink 05/07 -He denies any previous episodes of alcohol related seizures. -He is receiving vitamin supplementation. -Valium 2 mg p.o. every 6 hours as needed anxiety/agitation/withdrawal symptoms. -CIWA unavailable at this hospital. Symptoms to monitor discussed with nursing aware to monitor closely. (5) Hyperkalemia Is this a current diagnosis for this admission?: Yes Plan: -improved with Lasix and Lactulose. -Monitoring (6) Morbid obesity with BMI of 50.0-59.9, adult Is this a current diagnosis for this admission?: Yes Plan: -Dietary discretion is advised. -RD has been consulted Disposition: Full Code. Respiratory status needs to be more stable prior to d/c. Per pulm recommendation during last visit he needs Triology on d/c. Given he has history of not followi ng up with pulmonology and his respiratory status can decline quickly, he needs to be more stable prior to discharge. Should he end up intubated he would most likely be very difficult to get off. He needs to at least be stable back on home o2 level of 3.5L.
[2018-05-10] MEDS: MULTIVIT-STRESS FORMULA/ZINC TABLET PO SCH (15:14)
[2018-05-10 15:40] LABS: ARTERIAL BLOOD BASE EXCESS 8.7 mmol/L; ARTERIAL BLOOD H2CO3 2.11 mmol/L (1.05-1.35); ARTERIAL BLOOD HCO3 37.4 mmol/L (20-24); ARTERIAL BLOOD O2 SATURATION 95.2 % (94-98); ARTERIAL BLOOD PH 7.34 (7.35-7.45); ARTERIAL BLOOD PO2 82.5 mmHg (80-100); ARTERIAL BLOOD TOTAL CO2 39.5 mmol/L (23-27)
[2018-05-10 15:42] LABS: ARTERIAL BLOOD FIO2 4.5
[2018-05-10 15:43] LABS: ARTERIAL BLOOD PCO2 70.2 mmHg (35-45)
[2018-05-10] MEDS: MONTELUKAST SODIUM 10 MG TABLET PO SCH (18:01)
[2018-05-10] MEDS: LEVOFLOXACIN 750 MG/D5W RTU 750 MG/150 ML RTUPB IV SCH (18:01)
[2018-05-11] MEDS: IPRATROPIUM/ALBUTEROL 0.5-2.5 MG/3 ML AMPUL NEB SCH ×4 (01:48→19:48)
[2018-05-11] MEDS: METHYLPREDNISOLONE INJ 40 MG/1 ML SDV IV SCH ×3 (02:23→14:36)
[2018-05-11] MEDS: HEPARIN SOD (PORCINE) 5,000 UNIT/ML 1 ML SYRINGE SUBCUT SCH ×3 (06:07→21:05)
[2018-05-11 07:26] LABS: ANION GAP 8 (5-19); BLOOD UREA NITROGEN 20 mg/dL (7-20); CALCIUM 9.3 mg/dL (8.4-10.2); CARBON DIOXIDE 35 mmol/L (22-30); CHLORIDE 97 mmol/L (98-107); GLUCOSE 226 mg/dL (75-110); POTASSIUM 4.4 mmol/L (3.6-5.0); SODIUM 140.2 mmol/L (137-145)
[2018-05-11 07:30] LABS: ABSOLUTE MONOCYTES (AUTO) 0.3 10^3/uL (0.1-1.4); ABSOLUTE NEUT (AUTO) 8.3 10^3/uL (1.7-8.2); BASOPHILS % (AUTO) 0.2 % (0-2); EOSINOPHILS % (AUTO) 0.1 % (0-6); HEMATOCRIT 43.7 % (37.9-51.0); HEMOGLOBIN 14.5 g/dL (13.5-17.0); LYMPHOCYTES % (AUTO) 10.1 % (13-45); MEAN CORPUSCULAR HEMOGLOBIN 29.6 pg (27.0-33.4); MEAN CORPUSCULAR HGB CONC 33.1 g/dL (32.0-36.0); MEAN CORPUSCULAR VOLUME 89 fl (80-97); MONOCYTES % (AUTO) 2.7 % (3-13); PLATELET COUNT 203 10^3/uL (150-450); RED BLOOD COUNT 4.89 10^6/uL (4.35-5.55); RED CELL DISTRIBUTION WIDTH 14.7 % (11.5-14.0); SEGMENTED NEUTROPHILS % (AUTO) 86.9 % (42-78); TOTAL CELLS COUNTED % (AUTO) 100 %; WHITE BLOOD COUNT 9.6 10^3/uL (4.0-10.5)
[2018-05-11] MEDS: FUROSEMIDE 20 MG TABLET PO SCH (09:01)
[2018-05-11] MEDS: FOLIC ACID 1 MG TABLET PO SCH (09:02)
[2018-05-11] MEDS: BUSPIRONE HCL 10 MG TABLET PO SCH ×2 (09:02→21:05)
[2018-05-11] MEDS: FAMOTIDINE 20 MG TABLET PO SCH ×2 (09:03→21:06)
[2018-05-11] MEDS: DOCUSATE SODIUM 100 MG CAPSULE PO SCH (09:03)
[2018-05-11] MEDS: ASPIRIN 81 MG TABLET, ENT COATED PO SCH (09:03)
[2018-05-11] MEDS: DIAZEPAM 2 MG TABLET PO PRN ×2 (09:03→19:49)
[2018-05-11] MEDS: THIAMINE HCL 100 MG TABLET PO SCH (09:05)
[2018-05-11] MEDS: SERTRALINE HCL 50 MG TABLET PO SCH (09:07)
[2018-05-11] MEDS: FLUTICASONE NASAL SPRAY 50 MCG/SPRY 120 SPRAY/16 GM NASL SCH (14:36)
[2018-05-11] MEDS: MULTIVIT-STRESS FORMULA/ZINC TABLET PO SCH (15:01)
[2018-05-11] MEDS ORDERED: MULTIVIT-STRESS FORMULA/ZINC TABLET PO ONE (16:00)
--- NOTE | 2018-05-11 17:08 | PDOC PROGRESS REPORT ---
Subjective Progress Note for:: 05/11/18 Subjective:: The patient is a 67 year old male with a past medical history of chronic respiratory failure (home O2 dependent), COPD, hyperlipidemia, GERD, ADHD/bipolar who was admitted 05/07/2018 for acute on CRF with hypoxia and hypercapnia secondary to a COPD exacerbation. He is home dependent on 3.5 L of o2 via NC and has been on o2 for approx 5 years per him. Mr. Real continues to use the BiPAP for over half of the day. The other half of the day he uses O2 via nasal cannula 4-5 L. He continues to wheeze. Continues to deny fever chills or other signs and symptoms related to pneumonia. Continues to have a mainly nonproductive cough. Discussion had with family ab out importance of patient being active and compliant with hide buyer on discharge. Reason For Visit: A/C RESPIRATORY FAILURE,COPD EXACERBATION Physical Exam Vital Signs: Temp Pulse Resp BP Pulse Ox 99.5 F 93 24 H 140/105 H 92 05/11/18 16:33 05/11/18 16:33 05/11/18 16:33 05/11/18 16:33 05/11/18 16:33 Intake & Output 05/10/18 05/11/18 05/12/18 06:59 06:59 06:59 Intake Total 1250 1270 268 Output Total 650 1375 550 Balance 600 -105 -282 Weight 85 kg General appearance: PRESENT: no acute distress, disheveled, obese Head exam: PRESENT: atraumatic, normocephalic Eye exam: PRESENT: conjunctiva pink, EOMI, PERRLA. ABSENT: scleral icterus Ear exam: PRESENT: normal external ear exam Mouth exam: PRESENT: moist, tongue midline Teeth exam: PRESENT: other - No teeth Respiratory exam: PRESENT: decreased breath sounds, prolonged expiratory phas, wheezes Cardiovascular exam: PRESENT: RRR, +S1, +S2 Pulses: PRESENT: normal carotid pulses GI/Abdominal exam: PRESENT: normal bowel sounds, soft. ABSENT: distended, guarding, mass, organolmegaly, rebound, tenderness Rectal exam: PRESENT: deferred Extremities exam: PRESENT: full ROM. ABSENT: calf tenderness, clubbing, pedal edema Neurological exam: PRESENT: alert, awake, oriented to person, oriented to place, oriented to time, oriented to situation, CN II-XII grossly intact. ABSENT: m otor sensory deficit Psychiatric exam: PRESENT: anxious Results Laboratory Results: 05/11/18 06:47 05/11/18 06:47 05/11/18 05/11/18 06:47 06:47 WBC 9.6 RBC 4.89 Hgb 14.5 Hct 43.7 MCV 89 MCH 29.6 MCHC 33.1 RDW 14.7 H Plt Count 203 Seg Neutrophils % 86.9 H Lymphocytes % 10.1 L Monocytes % 2.7 L Eosinophils % 0.1 Basophils % 0.2 Absolute Neutrophils 8.3 H Absolute Lymphocytes 1.0 Absolute Monocytes 0.3 Absolute Eosinophils 0.0 Absolute Basophils 0.0 Sodium 140.2 Potassium 4.4 Chloride 97 L Carbon Dioxide 35 H Anion Gap 8 BUN 20 Creatinine 0.71 Est GFR ( Amer) > 60 Est GFR (Non-Af Amer) > 60 Glucose 226 H Calcium 9.3 Magnesium 2.2 05/07/18 08:42 Troponin I < 0.012 NT-Pro-B Natriuret Pep 90 Impressions: Chest X-Ray 05/08/18 00:00 IMPRESSION: NO ACUTE RADIOGRAPHIC FINDING IN THE CHEST. Assessment & Plan - Diagnosis (1) Acute and chronic respiratory failure with hypercapnia Is this a current diagnosis for this admission?: Yes (2) COPD with exacerbation Is this a current diagnosis for this admission?: Yes (3) Hyperkalemia Is this a current diagnosis for this admission?: Yes (4) Tobacco use Is this a current diagnosis for this admission?: Yes (5) Alcohol dependence Is this a current diagnosis for this admission?: Yes - Time Time Spent with patient: 25-34 minutes Smoking Cessation Education: over 10 minutes Medications reviewed and adjusted accordingly: Yes - Inpatient Certification Based on my medical assessment, after consideration of the patient's comorbidities, presenting symptoms, or acuity I expect that the services needed warrant INPATIENT care.: Yes I certify that my determination is in accordance with my understanding of Medicare's requirements for reasonable and necessary INPATIENT services [42 CFR 412.3e].: Yes - Plan Summary Plan Summary: (1) Acute and chronic respiratory failure with hypercapnia Is this a current diagnosis for this admission?: Yes Plan: -Continues to wheeze, so we will continue solumedrol from 40mg IV q6h -suspect leukocytosis was from iv steroids. Monitoring -Continues to wean o2 as able. continue supplemental oxygen and BiPAP as needed to maintain o2 saturations 89%-94% -Repeat ABG showed mild improvements. Continues to be very acidotic. Some of that is chronic in nature. -CXR does not show acute process, however he has improved since being on abx. Given his decline could be quick, and getting him off intubation would be very difficult we will continue with abx therapy. Plan to discuss abx selection with attending. -Continue scheduled and as needed nebulizer treatments and Singulair. -The patient was recently discharged from our facility (04/02) with recommendations for trilogy. Patient had initial sleep study after most recent d/c, but cannot afford the second sleep study needed to acquire triology settings. -Pulmonology contributed early in admission; we appreciate Dr. Mcdaniel's assistance. -no sputum or blood cultures were ordered on admission prior to antibiotics. (2) COPD with exacerbation Is this a current diagnosis for this admission?: Yes Plan: As above. (3) Tobacco use Is this a current diagnosis for this admission?: Yes Plan: -The patient reports a 45-year history of tobacco dependence; at times smoking 2-3 packs daily. -He reports that he is currently only smoking 2-3 cigarettes daily. -Smoking cessation is encouraged; nicotine replacement therapies are offered. (4) Alcohol dependence Is this a current diagnosis for this admission?: Yes Plan: -No issues reported. Denies rehab -The patient reports chronic alcohol intake of 1 pint weekly. Last drink 05/07 -He denies any previous episodes of alcohol related seizures. -He is receiving vitamin supplementation. -Valium 2 mg p.o. every 6 hours as needed anxiety/agitation/withdrawal symptoms. -CIWA unavailable at this hospital. Symptoms to monitor discussed with nursing aware to monitor closely. (5) Hyperkalemia Is this a current diagnosis for this admission?: Yes Plan: -improved with Lasix and Lactulose. -Monitoring (6) Morbid obesity with BMI of 50.0-59.9, adult Is this a current diagnosis for this admission?: Yes Plan: -Dietary discretion is advised. -RD has been consulted Disposition: Full Code. Respiratory status needs to be more stable prior to d/c. Per pulm recommendation during last visit he needs Triology on d/c. Given he has history of not following up with pulmonology and his respiratory status can decline quickly, he needs to be more stable prior to discharge. Should he end up intubated he would most likely be very difficult to get off. He needs to at least be stable back on home o2 level of 3.5L. We continue to make slow progress in the right direction . Most likely all future respiratory decompensation will take an extended period of time to recover.
[2018-05-11] MEDS: LEVOFLOXACIN 750 MG/D5W RTU 750 MG/150 ML RTUPB IV SCH (18:26)
[2018-05-11] MEDS: MONTELUKAST SODIUM 10 MG TABLET PO SCH (18:29)
[2018-05-11] MEDS: METHYLPREDNISOLONE INJ 125 MG/2 ML SDV IV SCH (20:55)
[2018-05-12] MEDS: IPRATROPIUM/ALBUTEROL 0.5-2.5 MG/3 ML AMPUL NEB SCH ×4 (01:59→20:18)
[2018-05-12] MEDS: METHYLPREDNISOLONE INJ 125 MG/2 ML SDV IV SCH ×4 (02:26→21:09)
[2018-05-12 04:52] LABS: HEMATOCRIT 43.2 % (37.9-51.0); HEMOGLOBIN 14.3 g/dL (13.5-17.0); MEAN CORPUSCULAR HEMOGLOBIN 29.3 pg (27.0-33.4); MEAN CORPUSCULAR HGB CONC 33.2 g/dL (32.0-36.0); MEAN CORPUSCULAR VOLUME 88 fl (80-97); PLATELET COUNT 199 10^3/uL (150-450); RED BLOOD COUNT 4.89 10^6/uL (4.35-5.55); RED CELL DISTRIBUTION WIDTH 14.5 % (11.5-14.0); WHITE BLOOD COUNT 10.9 10^3/uL (4.0-10.5)
[2018-05-12 05:18] LABS: ABSOLUTE LYMPHOCYTES# (MANUAL) 1.2 10^3/uL (0.5-4.7); ABSOLUTE MONOCYTES # (MANUAL) 0.4 10^3/uL (0.1-1.4); ABSOLUTE NEUTROPHILS# (MANUAL) 9.3 10^3/uL (1.7-8.2); BASOPHILS % (MANUAL) 0 % (0-2); EOSINOPHILS % (MANUAL) 0 % (0-6); LYMPHOCYTES % (MANUAL) 11 % (13-45); MONOCYTES % (MANUAL) 4 % (3-13); SEGMENTED NEUTROPHILS % (MAN) 85 % (42-78); TOTAL CELLS COUNTED 100
[2018-05-12 05:19] LABS: PLATELET COMMENT ADEQUATE; RBC MORPHOLOGY COMMENT NORMO-CYTIC/CHROMIC
[2018-05-12] MEDS: DIAZEPAM 2 MG TABLET PO PRN ×3 (05:24→21:08)
[2018-05-12] MEDS: HEPARIN SOD (PORCINE) 5,000 UNIT/ML 1 ML SYRINGE SUBCUT SCH ×3 (05:24→21:09)
[2018-05-12] MEDS: SERTRALINE HCL 50 MG TABLET PO SCH (09:45)
[2018-05-12] MEDS: ASPIRIN 81 MG TABLET, ENT COATED PO SCH (09:45)
[2018-05-12] MEDS: FUROSEMIDE 20 MG TABLET PO SCH (09:45)
[2018-05-12] MEDS: MULTIVIT-STRESS FORMULA/ZINC TABLET PO SCH (09:45)
[2018-05-12] MEDS: THIAMINE HCL 100 MG TABLET PO SCH (09:45)
[2018-05-12] MEDS: BUSPIRONE HCL 10 MG TABLET PO SCH ×2 (09:45→21:08)
[2018-05-12] MEDS: FAMOTIDINE 20 MG TABLET PO SCH ×2 (09:45→21:09)
[2018-05-12] MEDS: DOCUSATE SODIUM 100 MG CAPSULE PO SCH (09:46)
[2018-05-12] MEDS: FOLIC ACID 1 MG TABLET PO SCH (09:46)
[2018-05-12] MEDS: FLUTICASONE NASAL SPRAY 50 MCG/SPRY 120 SPRAY/16 GM NASL SCH (09:46)
--- NOTE | 2018-05-12 12:15 | PDOC PROGRESS REPORT ---
Subjective Progress Note for:: 05/11/18 Subjective:: Minimally improved Reason For Visit: A/C RESPIRATORY FAILURE,COPD EXACERBATION Physical Exam Vital Signs: Temp Pulse Resp BP Pulse Ox 98.1 F 76 18 138/88 H 93 05/12/18 11:23 05/12/18 11:23 05/12/18 11:23 05/12/18 11:23 05/12/18 11:23 Intake & Output 05/11/18 05/12/18 05/13/18 06:59 06:59 06:59 Intake Total 1270 1948 404 Output Total 1375 550 Balance -105 1398 404 Weight 84.2 kg General appearance: PRESENT: no acute distress, cooperative, disheveled, well- developed, well-nourished Head exam: PRESENT: atraumatic, normocephalic Eye exam: PRESENT: conjunctiva pale. ABSENT: nystagmus, scleral icterus Mouth exam: PRESENT: dry mucosa, neck supple, tongue midline Teeth exam: PRESENT: poor dentation Neck exam: ABSENT: carotid bruit, JVD, lymphadenopathy, thyromegaly, tracheal deviation, tracheostomy Respiratory exam: PRESENT: decreased breath sounds, prolonged expiratory phas, rhonchi, symmetrical, unlabored, wheezes. ABSENT: retraction, stridor, tachypnea Cardiovascular exam: PRESENT: irregular rhythm Pulses: PRESENT: normal radial pulses GI/Abdominal exam: PRESENT: soft. ABSENT: tenderness Extremities exam: PRESENT: pedal edema. ABSENT: calf tenderness, clubbing, joint swelling Musculoskeletal exam: ABSENT: deformity, dislocation Neurological exam: PRESENT: alert, awake Psychiatric exam: PRESENT: appropriate affect Skin exam: PRESENT: dry, warm Results Laboratory Results: 05/12/18 04:30 05/11/18 06:47 05/12/18 04:30 WBC 10.9 H RBC 4.89 Hgb 14.3 Hct 43.2 MCV 88 MCH 29.3 MCHC 33.2 RDW 14.5 H Plt Count 199 Seg Neutrophils % Not Reportable Lymphocytes % Not Reportable Monocytes % Not Reportable Eosinophils % Not Reportable Basophils % Not Reportable Absolute Neutrophils Not Reportable Absolute Lymphocytes Not Reportable Absolute Monocytes Not Reportable Absolute Eosinophils Not Reportable Absolute Basophils Not Reportable 05/07/18 08:42 Troponin I < 0.012 NT-Pro-B Natriuret Pep 90 Impressions: Chest X-Ray 05/08/18 00:00 IMPRESSION: NO ACUTE RADIOGRAPHIC FINDING IN THE CHEST. Assessment & Plan - Diagnosis (1) Acute and chronic respiratory failure with hypercapnia Is this a current diagnosis for this admission?: Yes Plan: Supplemental oxygen as well as NIPPV The above patient has failed BiPAP. This patient would benefit from noninvasive mechanical ventilation via the trilogy AVAPS/AE and faster responding AVAPS rates. The trilogy is able to provide a target tidal volume and also adjusting the EPAP pressures to maintain a patent airway as well as an oral backup rate this machine will help improve PaCO2 levels. The severity of the patient's condition will lead to future hospitalizations and readmissions as well as life-threatening situations without the use of this device day and night. Trilogy home vent needed for hypercapnic respiratory failure. [facility] or [facility] [place] to follow for trilogy set up. (2) Tobacco use Is this a current diagnosis for this admission?: Yes Plan: Stop smoking because at length risk of and dangers associated with continued tobacco use (3) Alcohol abuse Is this a current diagnosis for this admission?: Yes Plan: Stop drinking
--- NOTE | 2018-05-12 13:49 | PDOC PROGRESS REPORT ---
Subjective Progress Note for:: 05/12/18 Subjective:: Minimally improved Reason For Visit: A/C RESPIRATORY FAILURE,COPD EXACERBATION Physical Exam Vital Signs: Temp Pulse Resp BP Pulse Ox 98.1 F 76 18 138/88 H 93 05/12/18 11:23 05/12/18 11:23 05/12/18 11:23 05/12/18 11:23 05/12/18 11:23 Intake & Output 05/11/18 05/12/18 05/13/18 06:59 06:59 06:59 Intake Total 1270 1948 404 Output Total 1375 550 Balance -105 1398 404 Weight 84.2 kg General appearance: PRESENT: no acute distress, cooperative, disheveled, well- developed, well-nourished Head exam: PRESENT: atraumatic, normocephalic Eye exam: PRESENT: conjunctiva pale, EOMI. ABSENT: nystagmus, scleral icterus Mouth exam: PRESENT: dry mucosa, neck supple, tongue midline Neck exam: ABSENT: carotid bruit, JVD, lymphadenopathy, thyromegaly, tracheal deviation, tracheostomy Respiratory exam: PRESENT: decreased breath sounds, prolonged expiratory phas, rhonchi, unlabored, wheezes. ABSENT: retraction, stridor, tachypnea Cardiovascular exam: PRESENT: irregular rhythm Pulses: PRESENT: normal radial pulses GI/Abdominal exam: PRESENT: soft. ABSENT: tenderness Extremities exam: PRESENT: pedal edema. ABSENT: calf tenderness, clubbing, joint swelling Musculoskeletal exam: ABSENT: deformity, dislocation Neurological exam: PRESENT: alert, awake Psychiatric exam: PRESENT: appropriate affect Skin exam: PRESENT: dry, warm Results Laboratory Results: 05/12/18 04:30 05/11/18 06:47 05/12/18 04:30 WBC 10.9 H RBC 4.89 Hgb 14.3 Hct 43.2 MCV 88 MCH 29.3 MCHC 33.2 RDW 14.5 H Plt Count 199 Seg Neutrophils % Not Reportable Lymphocytes % Not Reportable Monocytes % Not Reportable Eosinophils % Not Reportable Basophils % Not Reportable Absolute Neutrophils Not Reportable Absolute Lymphocytes Not Reportable Absolute Monocytes Not Reportable Absolute Eosinophils Not Reportable Absolute Basophils Not Reportable 05/07/18 08:42 Troponin I < 0.012 NT-Pro-B Natriuret Pep 90 Impressions: Chest X-Ray 05/08/18 00:00 IMPRESSION: NO ACUTE RADIOGRAPHIC FINDING IN THE CHEST. Assessment & Plan - Diagnosis (1) Acute and chronic respiratory failure with hypercapnia Is this a current diagnosis for this admission?: Yes Plan: Supplemental oxygen as well as NIPPV The above patient has failed BiPAP. This patient would benefit from noninvasive mechanical ventilation via the trilogy AVAPS/AE and faster responding AVAPS rates. The trilogy is able to provide a target tidal volume and also adjusting the EPAP pressures to maintain a patent airway as well as an oral backup rate this machine will help improve PaCO2 levels. The severity of the patient's condition will lead to future hospitalizations and readmissions as well as life- threatening situations without the use of this device day and night. Trilogy home vent needed for hypercapnic respiratory failure. [facility] or [facility] [place] to follow for trilogy set up. (2) Alcohol abuse Is this a current diagnosis for this admission?: Yes Plan: Stop drinking (3) Tobacco dependence Is this a current diagnosis for this admission?: Yes Plan: Stop smoking
--- NOTE | 2018-05-12 15:08 | PDOC PROGRESS REPORT ---
Subjective Progress Note for:: 05/12/18 Subjective:: The patient is a 67 year old male with a past medical history of chronic respiratory failure (home O2 dependent), COPD, hyperlipidemia, GERD, ADHD/bipolar who was admitted 05/07/2018 for acute on CRF with hypoxia and hypercapnia secondary to a COPD exacerbation. He is home dependent on 3.5 L of o2 via NC and has been on o2 for approx 5 years per him. Mr. Real reports some improvement in breathing since yesterday. He is wheezing less. He is using the BiPAP less. During the time of evaluation he is on 4 L of oxygen via nasal cannula. His ankles do have 1-2+ swelling bilaterally and it does sound like possible mild crackles in the bases of his lungs. He denies fever and chills or other signs or symptoms related to pneumonia. Continues to be short of breath while in bed, and has not attempted physical activity at this point. He is able to eat and talk in full sentences. He believes the increase in steroids has a lot to do with the improvement in breathing. Reason For Visit: A/C RESPIRATORY FAILURE,COPD EXACERBATION Physical Exam Vital Signs: Temp Pulse Resp BP Pulse Ox 98.1 F 75 22 H 138/88 H 95 05/12/18 11:23 05/12/18 13:55 05/12/18 13:55 05/12/18 11:23 05/12/18 13:55 Intake & Output 05/11/18 05/12/18 05/13/18 06:59 06:59 06:59 Intake Total 1270 1948 404 Output Total 1375 550 Balance -105 1398 404 Weight 84.2 kg General appearance: PRESENT: no acute distress, disheveled Head exam: PRESENT: atraumatic, normocephalic Eye exam: PRESENT: conjunctiva pink, EOMI, PERRLA. ABSENT: scleral icterus Ear exam: PRESENT: normal external ear exam Mouth exam: PRESENT: moist, tongue midline Respiratory exam: PRESENT: prolonged expiratory phas, wheezes - Mild expiratory, mild bilateral crackles at the bases Cardiovascular exam: PRESENT: RRR, +S1, +S2 Pulses: PRESENT: normal dorsalis pedis pul Vascular exam: PRESENT: normal capillary refill GI/Abdominal exam: PRESENT: normal bowel sounds, soft. ABSENT: distended, guarding, mass, organolmegaly, rebound, tenderness Rectal exam: PRESENT: deferred Extremities exam: PRESENT: other - 1-2+ bilateral lower extremity edema. Musculoskeletal exam: PRESENT: full ROM Neurological exam: PRESENT: alert, awake, oriented to person, oriented to place, oriented to time, oriented to situation, CN II-XII grossly intact. ABSENT: motor sensory deficit Psychiatric exam: PRESENT: normal mood Results Laboratory Results: 05/12/18 04:30 05/11/18 06:47 05/12/18 04:30 WBC 10.9 H RBC 4.89 Hgb 14.3 Hct 43.2 MCV 88 MCH 29.3 MCHC 33.2 RDW 14.5 H Plt Count 199 Seg Neutrophils % Not Reportable Lymphocytes % Not Reportable Monocytes % Not Reportable Eosinophils % Not Reportable Basophils % Not Reportable Absolute Neutrophils Not Reportable Absolute Lymphocytes Not Reportable Absolute Monocytes Not Reportable Absolute Eosinophils Not Reportable Absolute Basophils Not Reportable 05/07/18 08:42 Troponin I < 0.012 NT-Pro-B Natriuret Pep 90 Impressions: Chest X-Ray 05/08/18 00:00 IMPRESSION: NO ACUTE RADIOGRAPHIC FINDING IN THE CHEST. Assessment & Plan - Diagnosis (1) Acute and chronic respiratory failure with hypercapnia Is this a current diagnosis for this admission?: Yes (2) COPD with exacerbation Is this a current diagnosis for this admission?: Yes (3) Hyperkalemia Is this a current diagnosis for this admission?: Yes (4) Tobacco use Is this a current diagnosis for this admission?: Yes (5) Alcohol dependence Is this a current diagnosis for this admission?: Yes - Time Time Spent with patient: 25-34 minutes Smoking Cessation Education: over 10 minutes Medications reviewed and adjusted accordingly: Yes - Inpatient Certification Based on my medical assessment, after consideration of the patient's comorbidities, presenting symptoms, or acuity I expect that the services needed warrant INPATIENT care.: Yes I certify that my determination is in accordance with my understanding of Medicare's requirements for reasonable and necessary INPATIENT services [42 CFR 412.3e].: Yes Medical Necessity: Failure to Improve With Outpatient Therapy, Significant Comorbidiites Make Outpatient Treatment Too Risky, Need for Nebulizer Therapy and Monitoring of Response, Risk of Complication if Not Cared For in Hospital - Plan Summary Plan Summary: (1) Acute and chronic respiratory failure with hypercapnia Is this a current diagnosis for this admission?: Yes Plan: -Improvements made with Solumedrol from 60mg IV q6h. will need to be tapered to oral prior to discharge -suspect leukocytosis was/is from iv steroids. Monitoring -Continues to wean o2 as able. continue supplemental oxygen and BiPAP as needed to maintain o2 saturations 89%-94% -Repeat ABG showed mild improvements. Continues to be very acidotic. Some of that is chronic in nature. -CXR does not show acute process, however he has improved since being on abx. Given his decline could be quick, and getting him off intubation would be very difficult we will continue with abx therapy. Plan to discuss abx selection with attending. -Continue scheduled and as needed nebulizer treatments and Singulair. -The patient was recently discharged from our facility (04/02) with recommendations for trilogy. Patient had initial sleep study after most recent d/c, but cannot afford the second sleep study needed to acquire triology settings. -Pulmonology contributed early in admission; we appreciate Dr. Mcdaniel's assistance. -no sputum or blood cultures were ordered on admission prior to antibiotics. -Seems to possibly have some pulmonary edema on clinical exam today (05/12). Change oral home dose of Lasix to IV Lasix 40 mg twice daily. We will asked that the evening dose be given as close to 4 PM as possible to hopefully minimize nighttime urination. (2) COPD with exacerbation Is this a current diagnosis for this admission?: Yes Plan: As above. (3) Tobacco use Is this a current diagnosis for this admission?: Yes Plan: -The patient reports a 45-year history of tobacco dependence; at times smoking 2-3 packs daily. -He reports that he is currently only smoking 2-3 cigarettes daily. -Smoking cessation is encouraged; nicotine replacement therapies are offered. (4) Alcohol dependence Is this a current diagnosis for this admission?: Yes Plan: -No issues reported. Denies rehab -The patient reports chronic alcohol intake of 1 pint weekly. Last drink 05/07 -He denies any previous episodes of alcohol related seizures. -He is receiving vitamin supplementation. -Valium 2 mg p.o. every 6 hours as needed anxiety/agitation/withdrawal symptoms. -CIWA unavailable at this hospital. Symptoms to monitor discussed with nursing aware to monitor closely. (5) Hyperkalemia Is this a current diagnosis for this admission?: Yes Plan: -improved with Lasix and Lactulose. -Monitoring (6) Morbid obesity with BMI of 50.0-59.9, adult Is this a current diagnosis for this admission?: Yes Plan: -Dietary discretion is advised. -RD has been consulted (7)Hyperglycemia -Likely from steroids. Check A1c Disposition: Full Code. Respiratory status needs to be more stable prior to d/c. Per pulm recommendation during last visit he needs Triology on d/c. Given he has history of not following up with pulmonology and his respiratory status can decline quickly, he needs to be more stable prior to discharge. Should he end up intubated he would most likely be very difficult to get off. He needs to at least be stable back on home o2 level of 3.5L. We continue to make slow progress in the right direction. Most likely all future respiratory decompensation will take an extended period of time to recover.
[2018-05-12] MEDS: MONTELUKAST SODIUM 10 MG TABLET PO SCH (17:21)
[2018-05-12] MEDS: LEVOFLOXACIN 750 MG/D5W RTU 750 MG/150 ML RTUPB IV SCH (17:21)
[2018-05-12] MEDS: FUROSEMIDE INJ/PF 40 MG/4 ML SDV IV SCH (21:09)
[2018-05-13] MEDS: IPRATROPIUM/ALBUTEROL 0.5-2.5 MG/3 ML AMPUL NEB SCH ×4 (02:36→19:40)
[2018-05-13] MEDS: METHYLPREDNISOLONE INJ 125 MG/2 ML SDV IV SCH ×4 (02:52→22:08)
[2018-05-13] MEDS: DIAZEPAM 2 MG TABLET PO PRN ×4 (02:57→22:10)
[2018-05-13] MEDS: HEPARIN SOD (PORCINE) 5,000 UNIT/ML 1 ML SYRINGE SUBCUT SCH ×3 (05:45→22:08)
[2018-05-13 06:17] LABS: HEMATOCRIT 45.8 % (37.9-51.0); HEMOGLOBIN 15.1 g/dL (13.5-17.0); MEAN CORPUSCULAR HEMOGLOBIN 29.3 pg (27.0-33.4); MEAN CORPUSCULAR HGB CONC 32.9 g/dL (32.0-36.0); MEAN CORPUSCULAR VOLUME 89 fl (80-97); PLATELET COUNT 221 10^3/uL (150-450); RED BLOOD COUNT 5.14 10^6/uL (4.35-5.55); RED CELL DISTRIBUTION WIDTH 14.4 % (11.5-14.0); WHITE BLOOD COUNT 14.5 10^3/uL (4.0-10.5)
[2018-05-13 06:53] LABS: ANION GAP 8 (5-19); BLOOD UREA NITROGEN 33 mg/dL (7-20); CALCIUM 9.2 mg/dL (8.4-10.2); CARBON DIOXIDE 36 mmol/L (22-30); CHLORIDE 94 mmol/L (98-107); GLUCOSE 143 mg/dL (75-110); POTASSIUM 4.7 mmol/L (3.6-5.0); SODIUM 137.8 mmol/L (137-145)
[2018-05-13] MEDS: BUSPIRONE HCL 10 MG TABLET PO SCH ×2 (09:39→22:08)
[2018-05-13] MEDS: FUROSEMIDE INJ/PF 40 MG/4 ML SDV IV SCH ×2 (09:40→22:08)
[2018-05-13] MEDS: FOLIC ACID 1 MG TABLET PO SCH (09:40)
[2018-05-13] MEDS: ASPIRIN 81 MG TABLET, ENT COATED PO SCH (09:40)
[2018-05-13] MEDS: THIAMINE HCL 100 MG TABLET PO SCH (09:40)
[2018-05-13] MEDS: DOCUSATE SODIUM 100 MG CAPSULE PO SCH (09:40)
[2018-05-13] MEDS: FAMOTIDINE 20 MG TABLET PO SCH ×2 (09:40→22:08)
[2018-05-13] MEDS: MULTIVIT-STRESS FORMULA/ZINC TABLET PO SCH (09:40)
[2018-05-13] MEDS: FLUTICASONE NASAL SPRAY 50 MCG/SPRY 120 SPRAY/16 GM NASL SCH (09:40)
[2018-05-13] MEDS: SERTRALINE HCL 50 MG TABLET PO SCH (09:40)
--- NOTE | 2018-05-13 14:03 | PDOC PROGRESS REPORT ---
Subjective Progress Note for:: 05/13/18 Subjective:: The patient is a 67 year old male with a past medical history of chronic respiratory failure (home O2 dependent), COPD, hyperlipidemia, GERD, ADHD/bipolar who was admitted 05/07/2018 for acute on CRF with hypoxia and hypercapnia secondary to a COPD exacerbation. He is home dependent on 3.5 L of o2 via NC and has been on o2 for approx 5 years per him. Mr. Real reports some improvement in his breathing. He now has a minimal wheeze. Yesterday use the BiPAP for approximately 3 hours during the daytime. He continues to use the BiPAP when he sleeps. He does not have a BiPAP at home. He only has nasal cannula O2 at home. He felt the extra dose of Lasix was beneficial to his breathing. His lungs sound clearer today than previously. He continues to be a little bit concerned about discharge since he does not have a BiPAP or BiPAP type machine at home. Denies chest pain, acute changes in breathing. He denies fever, chills or other symptoms of systemic illness. He has not been able to walk around the unit at this point. He does get out of bed to go to the bathroom. Speaks in full sentences. He is able to eat meals adequately. Reason For Visit: A/C RESPIRATORY FAILURE,COPD EXACERBATION Physical Exam Vital Signs: Temp Pulse Resp BP Pulse Ox 97.9 F 94 18 134/89 H 96 05/13/18 07:20 05/13/18 13:33 05/13/18 13:33 05/13/18 07:20 05/13/18 08:07 Intake & Output 05/12/18 05/13/18 05/14/18 06:59 06:59 06:59 Intake Total 1948 1378 Output Total 550 375 Balance 1398 1003 Weight 84.2 kg 89.7 kg General appearance: PRESENT: no acute distress, cooperative, disheveled Head exam: PRESENT: atraumatic, normocephalic Eye exam: PRESENT: conjunctiva pink, EOMI, PERRLA. ABSENT: scleral icterus Ear exam: PRESENT: normal external ear exam Mouth exam: PRESENT: moist, tongue midline Teeth exam: PRESENT: other - No teeth Respiratory exam: PRESENT: prolonged expiratory phas, other - Minimal late expiratory wheeze. Possible basilar rales. Right greater than left. Cardiovascular exam: PRESENT: RRR, +S1, +S2 Pulses: PRESENT: normal dorsalis pedis pul Vascular exam: PRESENT: normal capillary refill GI/Abdominal exam: PRESENT: normal bowel sounds, soft. ABSENT: distended, guard ing, mass, organolmegaly, rebound, tenderness Rectal exam: PRESENT: deferred Extremities exam: PRESENT: other - Minimal edema bilateral lower extremities. Musculoskeletal exam: PRESENT: ambulatory, full ROM Neurological exam: PRESENT: alert, awake, oriented to person, oriented to place, oriented to time, oriented to situation, CN II-XII grossly intact. ABSENT: motor sensory deficit Psychiatric exam: PRESENT: normal mood Results Laboratory Results: 05/13/18 05:03 05/13/18 05:03 05/13/18 05/13/18 05:03 05:03 WBC 14.5 H RBC 5.14 Hgb 15.1 Hct 45.8 MCV 89 MCH 29.3 MCHC 32.9 RDW 14.4 H Plt Count 221 Sodium 137.8 Potassium 4.7 Chloride 94 L Carbon Dioxide 36 H Anion Gap 8 BUN 33 H Creatinine 0.82 Est GFR ( Amer) > 60 Est GFR (Non-Af Amer) > 60 Glucose 143 H Calcium 9.2 Magnesium 2.5 H 05/07/18 08:42 Troponin I < 0.012 NT-Pro-B Natriuret Pep 90 Impressions: Chest X-Ray 05/08/18 00:00 IMPRESSION: NO ACUTE RADIOGRAPHIC FINDING IN THE CHEST. Assessment & Plan - Diagnosis (1) Acute and chronic respiratory failure with hypercapnia Is this a current diagnosis for this admission?: Yes (2) COPD with exacerbation Is this a current diagnosis for this admission?: Yes (3) Hyperkalemia Is this a current diagnosis for this admission?: Yes (4) Tobacco use Is this a current diagnosis for this admission?: Yes (5) Alcohol dependence Is this a current diagnosis for this admission?: Yes - Time Time Spent with patient: 25-34 minutes Smoking Cessation Education: over 10 minutes Medications reviewed and adjusted accordingly: Yes - Inpatient Certification Based on my medical assessment, after consideration of the patient's comorbidities, presenting symptoms, or acuity I expect that the services needed warrant INPATIENT care.: Yes I certify that my determination is in accordance with my understanding of Medicare's requirements for reasonable and necessary INPATIENT services [42 CFR 412.3e].: Yes - Plan Summary Plan Summary: (1) Acute and chronic respiratory failure with hypercapnia Is this a current diagnosis for this admission?: Yes Plan: -Relatively stable x 2 days on Solumedrol from 60mg IV q6h. begin taper. lower back to 40mg q6h -suspect leukocytosis is from iv steroids. Monitoring -Continues to wean o2 as able. continue supplemental oxygen and BiPAP as needed to maintain o2 saturations 89%-94% -Repeat ABG showed mild improvements. Continues to be very acidotic. Some of that is chronic in nature. -CXR does not show acute process, however he has improved since being on abx. Given his decline could be quick, and getting him off intubation would be very difficult we will continue with abx therapy. -Continue scheduled and as needed nebulizer treatments and Singulair. -The patient was recently d/c from our facility (04/02) w/recommendations for trilogy. Patient had initial sleep study after most recent d/c, but can't afford the 2nd sleep study needed to acquire triology settings. -Pulmonology contributed early in admission; we appreciate Dr. Mcdnaiel's assistance. -no sputum or blood cultures were ordered on admission prior to antibiotics. -Seems to possibly have some pulmonary edema on clinical exam today (05/12). Continue with IV Lasix 40 mg twice daily as a seem to improve breathing. May need an increase of previous home dose on d/c (2) COPD with exacerbation Is this a current diagnosis for this admission?: Yes Plan: As above. Improving (3) Tobacco use Is this a current diagnosis for this admission?: Yes Plan: -The patient reports a 45-year history of tobacco dependence; at times smoking 2-3 packs daily. He reports that he is currently only smoking 2-3 cigarettes daily. -Smoking cessation is encouraged; nicotine replacement therapies are offered. (4) Alcohol dependence Is this a current diagnosis for this admission?: Yes Plan: -No issues reported. Denies rehab -The patient reports chronic alcohol intake of 1 pint weekly. Last drink 05/07 -He denies any previous episodes of alcohol related seizures. He is receiving vitamin supplementation. -Valium 2 mg p.o. every 6 hours as needed anxiety/agitation/withdrawal symptoms. -CIWA unavailable at this hospital. Symptoms to monitor discussed with nursing aware to monitor closely. (5) Hyperkalemia Is this a current diagnosis for this admission?: Yes Plan: -improved with Lasix and Lactulose. Monitoring (6) Morbid obesity with BMI of 50.0-59.9, adult Is this a current diagnosis for this admission?: Yes Plan: -Dietary discretion is advised. RD involved. (7)Hyperglycemia -Likely from steroids. a1c 6.0. Defer management to PCP Disposition: Full Code. Respiratory status needs to be more stable prior to d/c. Per pulm recommendation during last visit he needs Triology on d/c. Given he has history of not followin g up with pulmonology and his respiratory status can decline quickly, he needs to be more stable prior to discharge. Should he end up intubated he would most likely be very difficult to get off. He needs to at least be stable back near home o2 level of 3.5L. We continue to make slow progress in the right direction. Most likely all future respiratory decompensation will take an extended period of time to recover.
[2018-05-13] MEDS: LEVOFLOXACIN 750 MG/D5W RTU 750 MG/150 ML RTUPB IV SCH (17:04)
[2018-05-13] MEDS: MONTELUKAST SODIUM 10 MG TABLET PO SCH (17:04)
[2018-05-14] MEDS: IPRATROPIUM/ALBUTEROL 0.5-2.5 MG/3 ML AMPUL NEB SCH ×4 (02:12→19:58)
[2018-05-14] MEDS: METHYLPREDNISOLONE INJ 125 MG/2 ML SDV IV SCH (02:19)
[2018-05-14] MEDS: HEPARIN SOD (PORCINE) 5,000 UNIT/ML 1 ML SYRINGE SUBCUT SCH ×3 (05:10→21:25)
--- NOTE | 2018-05-14 08:54 | PDOC PROGRESS REPORT ---
Subjective Progress Note for:: 05/14/18 Subjective:: The patient is a 67 year old male with a past medical history of chronic respiratory failure (home O2 dependent), COPD, hyperlipidemia, GERD, ADHD/bipolar who was admitted 05/07/2018 for acute on CRF with hypoxia and hypercapnia secondary to a COPD exacerbation. He is home dependent on 3.5 L of o2 via NC and has been on o2 for approx 5 years per him. Mr. Real reports improvement in breathing. He has no appreciable wheeze today. He did not walk around the unit yesterday. He is speaking in full sentences. He is tolerating p.o. food well. He spent approximately 1-2 hours on the BiPAP yesterday during the day. Denies fever, chills, productive cough, chest pain, or acute changes in breathing. Again we discussed being more compliant with follow-up visits and BiPAP on discharge. Patient continues to be in good spirits. Currently tolerating 3 L of oxygen via nasal cannula between BiPAP usages. Reason For Visit: A/C RESPIRATORY FAILURE,COPD EXACERBATION Physical Exam Vital Signs: Temp Pulse Resp BP Pulse Ox 97.4 F 90 17 135/91 H 93 05/14/18 03:30 05/14/18 08:03 05/14/18 08:03 05/14/18 03:30 05/14/18 08:03 Intake & Output 05/13/18 05/14/18 05/15/18 06:59 06:59 06:59 Intake Total 1378 2916 Output Total 375 475 Balance 1003 2441 Weight 89.7 kg 90.1 kg General appearance: PRESENT: no acute distress, cooperative, disheveled, obese Head exam: PRESENT: atraumatic, normocephalic Eye exam: PRESENT: conjunctiva pink, EOMI, PERRLA. ABSENT: scleral icterus Ear exam: PRESENT: normal external ear exam Mouth exam: PRESENT: moist, tongue midline Respiratory exam: PRESENT: other - Good airflow bilaterally. No wheeze. No appreciable rales or rhonchi. Cardiovascular exam: PRESENT: RRR, +S1, +S2 Pulses: PRESENT: normal dorsalis pedis pul GI/Abdominal exam: PRESENT: distended, normal bowel sounds, soft Rectal exam: PRESENT: deferred Extremities exam: PRESENT: other - No appreciable edema bilateral lower extremities. Musculoskeletal exam: PRESENT: full ROM, normal inspection Psychiatric exam: PRESENT: normal mood Results Laboratory Results: 05/13/18 05:03 05/13/18 05:03 05/07/18 08:42 Troponin I < 0.012 NT-Pro-B Natriuret Pep 90 Impressions: Chest X-Ray 05/08/18 00:00 IMPRESSION: NO ACUTE RADIOGRAPHIC FINDING IN THE CHEST. Assessment & Plan - Diagnosis (1) Acute and chronic respiratory failure with hypercapnia Is this a current diagnosis for this admission?: Yes (2) COPD with exacerbation Is this a current diagnosis for this admission?: Yes (3) Hyperkalemia Is this a current diagnosis for this admission?: Yes (4) Tobacco use Is this a current diagnosis for this admission?: Yes (5) Alcohol dependence Is this a current diagnosis for this admission?: Yes - Time Time Spent with patient: 25-34 minutes Smoking Cessation Education: over 10 minutes Medications reviewed and adjusted accordingly: Yes - Inpatient Certification Based on my medical assessment, after consideration of the patient's comorbidities, presenting symptoms, or acuity I expect that the services needed warrant INPATIENT care.: Yes I certify that my determination is in accordance with my understanding of Medicare's requirements for reasonable and necessary INPATIENT services [42 CFR 412.3e].: Yes - Plan Summary Plan Summary: (1) Acute and chronic respiratory failure with hypercapnia Is this a current diagnosis for this admission?: Yes Plan: -Improved since escalating the Solu-Medrol to 60 mg every 6 hours. Currently tapering IV Solu-Medrol. Current dose 40 mg every 8 hours. Plan to taper to oral prednisone on discharge. -suspect leukocytosis is from iv steroids. Monitoring -Continues to wean o2 as able. continue supplemental oxygen and BiPAP as needed to maintain o2 saturations 89%-94%. Continue as needed nebs and Singulair. -Repeat ABG showed mild improvements. Continues to be very acidotic. Some of that is chronic in nature. -CXR does not show acute process, however he has improved since being on abx. Given his decline could be quick, and getting him off intubation would be very difficult we will continue with abx therapy. -Completing 7-day course of Levaquin today (05/14) -no sputum or blood cultures were ordered on admission prior to antibiotics. -The patient was recently d/c from our facility (04/02) w/recommendations for trilogy. Patient had initial sleep study after most recent d/c, but can't afford the 2nd sleep study needed to acquire triology settings. -Pulmonology contributed early in admission; we appreciate Dr. Mcdaniel's assistance. -Seem to be slightly volume overloaded. Home dose of Lasix may be inadequate, a nd require a higher dose on discharge. Lower IV Lasix 40 mg twice daily to 40 mg p.o. daily. (2) COPD with exacerbation Is this a current diagnosis for this admission?: Yes Plan: As above. Improving (3) Tobacco use Is this a current diagnosis for this admission?: Yes Plan: -The patient reports a 45-year history of tobacco dependence; at times smoking 2-3 packs daily. He reports that he is currently only smoking 2-3 cigarettes daily. -Smoking cessation is encouraged; nicotine replacement therapies are offered. (4) Alcohol dependence Is this a current diagnosis for this admission?: Yes Plan: -No issues reported. Denies rehab -The patient reports chronic alcohol intake of 1 pint weekly. Last drink 05/07 -He denies any previous episodes of alcohol related seizures. He is receiving vi tamin supplementation. -Valium 2 mg p.o. every 6 hours as needed anxiety/agitation/withdrawal symptoms. -CIWA unavailable at this hospital. Symptoms to monitor discussed with nursing aware to monitor closely. (5) Hyperkalemia Is this a current diagnosis for this admission?: Yes Plan: -resolved with Lasix and Lactulose. Monitoring (6) Morbid obesity with BMI of 50.0-59.9, adult Is this a current diagnosis for this admission?: Yes Plan: -Dietary discretion is advised. RD involved. (7)Hyperglycemia -Likely from steroids. a1c 6.0. Defer management to PCP (8) CHAITANYA -Noncompliant in the past. Using BiPAP here in the hospital. Plans to be compliant on discharge once he can obtain a machine. Disposition: Full Code. Respiratory status needs to be more stable prior to d/c. Per pulm recommendation during last visit he needs Triology on d/c. Given he has history of not followin g up with pulmonology and his respiratory status can decline quickly, he needs to be more stable prior to discharge. Should he end up intubated he would most likely be very difficult to get off. He needs to at least be stable back near home o2 level near 3L. We continue to make slow progress in the right direction. Most likely all future respiratory decompensation will take an extended period of time to recover. Appears patient will be likely stable enough for discharge in the next 24-72 hours. Currently tapering steroids. Also tapering use of daytime BiPAP. Plans to attempt activity today.
[2018-05-14] MEDS: FLUTICASONE NASAL SPRAY 50 MCG/SPRY 120 SPRAY/16 GM NASL SCH (09:35)
[2018-05-14] MEDS: FAMOTIDINE 20 MG TABLET PO SCH ×2 (09:36→21:26)
[2018-05-14] MEDS: ASPIRIN 81 MG TABLET, ENT COATED PO SCH (09:36)
[2018-05-14] MEDS: SERTRALINE HCL 50 MG TABLET PO SCH (09:36)
[2018-05-14] MEDS: DOCUSATE SODIUM 100 MG CAPSULE PO SCH (09:36)
[2018-05-14] MEDS: THIAMINE HCL 100 MG TABLET PO SCH (09:36)
[2018-05-14] MEDS: FOLIC ACID 1 MG TABLET PO SCH (09:36)
[2018-05-14] MEDS: DIAZEPAM 2 MG TABLET PO PRN ×2 (09:36→17:10)
[2018-05-14] MEDS: BUSPIRONE HCL 10 MG TABLET PO SCH ×2 (09:36→21:26)
[2018-05-14] MEDS: MULTIVIT-STRESS FORMULA/ZINC TABLET PO SCH (09:36)
[2018-05-14] MEDS: FUROSEMIDE 40 MG TABLET PO SCH (09:39)
[2018-05-14 10:11] LABS: ABSOLUTE LYMPHOCYTES (AUTO) 1.3 10^3/uL (0.5-4.7); ABSOLUTE MONOCYTES (AUTO) 0.6 10^3/uL (0.1-1.4); ABSOLUTE NEUT (AUTO) 14.4 10^3/uL (1.7-8.2); BASOPHILS % (AUTO) 0.1 % (0-2); EOSINOPHILS % (AUTO) 0.1 % (0-6); HEMATOCRIT 46.7 % (37.9-51.0); HEMOGLOBIN 15.6 g/dL (13.5-17.0); LYMPHOCYTES % (AUTO) 8.2 % (13-45); MEAN CORPUSCULAR HEMOGLOBIN 29.7 pg (27.0-33.4); MEAN CORPUSCULAR HGB CONC 33.4 g/dL (32.0-36.0); MEAN CORPUSCULAR VOLUME 89 fl (80-97); MONOCYTES % (AUTO) 3.4 % (3-13); PLATELET COUNT 214 10^3/uL (150-450); RED BLOOD COUNT 5.26 10^6/uL (4.35-5.55); RED CELL DISTRIBUTION WIDTH 14.8 % (11.5-14.0); SEGMENTED NEUTROPHILS % (AUTO) 88.2 % (42-78); TOTAL CELLS COUNTED % (AUTO) 100 %; WHITE BLOOD COUNT 16.3 10^3/uL (4.0-10.5)
[2018-05-14 10:25] LABS: ANION GAP 7 (5-19); BLOOD UREA NITROGEN 38 mg/dL (7-20); CARBON DIOXIDE 36 mmol/L (22-30); CHLORIDE 95 mmol/L (98-107); GLUCOSE 175 mg/dL (75-110); POTASSIUM 4.5 mmol/L (3.6-5.0); SODIUM 137.9 mmol/L (137-145)
[2018-05-14] MEDS: METHYLPREDNISOLONE INJ 40 MG/1 ML SDV IV SCH ×2 (14:21→21:25)
[2018-05-14] MEDS: MONTELUKAST SODIUM 10 MG TABLET PO SCH (17:09)
[2018-05-15] MEDS: IPRATROPIUM/ALBUTEROL 0.5-2.5 MG/3 ML AMPUL NEB SCH ×4 (02:20→20:06)
[2018-05-15] MEDS: METHYLPREDNISOLONE INJ 40 MG/1 ML SDV IV SCH ×3 (05:11→21:37)
[2018-05-15] MEDS: HEPARIN SOD (PORCINE) 5,000 UNIT/ML 1 ML SYRINGE SUBCUT SCH ×3 (05:11→21:37)
[2018-05-15] MEDS: DIAZEPAM 2 MG TABLET PO PRN ×3 (05:16→21:37)
[2018-05-15 06:05] LABS: HEMATOCRIT 46.4 % (37.9-51.0); HEMOGLOBIN 15.4 g/dL (13.5-17.0); MEAN CORPUSCULAR HEMOGLOBIN 29.6 pg (27.0-33.4); MEAN CORPUSCULAR HGB CONC 33.2 g/dL (32.0-36.0); MEAN CORPUSCULAR VOLUME 89 fl (80-97); PLATELET COUNT 182 10^3/uL (150-450); RED BLOOD COUNT 5.21 10^6/uL (4.35-5.55); RED CELL DISTRIBUTION WIDTH 14.7 % (11.5-14.0); WHITE BLOOD COUNT 15.8 10^3/uL (4.0-10.5)
[2018-05-15 06:38] LABS: ANION GAP 5 (5-19); BLOOD UREA NITROGEN 36 mg/dL (7-20); CALCIUM 8.8 mg/dL (8.4-10.2); CARBON DIOXIDE 35 mmol/L (22-30); CHLORIDE 99 mmol/L (98-107); GLUCOSE 118 mg/dL (75-110); POTASSIUM 4.2 mmol/L (3.6-5.0); SODIUM 139.3 mmol/L (137-145)
[2018-05-15] MEDS: FLUTICASONE NASAL SPRAY 50 MCG/SPRY 120 SPRAY/16 GM NASL SCH (09:37)
[2018-05-15] MEDS: ASPIRIN 81 MG TABLET, ENT COATED PO SCH (09:37)
[2018-05-15] MEDS: BUSPIRONE HCL 10 MG TABLET PO SCH ×2 (09:37→21:37)
[2018-05-15] MEDS: FUROSEMIDE 40 MG TABLET PO SCH (09:38)
[2018-05-15] MEDS: FAMOTIDINE 20 MG TABLET PO SCH ×2 (09:38→21:36)
[2018-05-15] MEDS: SERTRALINE HCL 50 MG TABLET PO SCH (09:38)
[2018-05-15] MEDS: MULTIVIT-STRESS FORMULA/ZINC TABLET PO SCH (09:38)
[2018-05-15] MEDS: FOLIC ACID 1 MG TABLET PO SCH (09:38)
[2018-05-15] MEDS: THIAMINE HCL 100 MG TABLET PO SCH (09:38)
[2018-05-15] MEDS: DOCUSATE SODIUM 100 MG CAPSULE PO SCH (09:38)
--- NOTE | 2018-05-15 12:09 | PDOC CONSULTATION ---
Consultation Consult Date: 05/08/18 Attending physician:: ENRIQUE CARVAJAL Consult reason:: Dyspnea History of Present Illness Admission Date/PCP: 05/07/18 10:06 JOSSE MORTENSEN MD History of Present Illness: MANI FLYNN is a 67 year old male, dependent COPD presented increasing shortness of breath some confusion was found on presentation the emergency room to have a PCO2 of 99 this improved somewhat with the BiPAP and he was subsequently admitted started on bronchodilator therapy as well as IV steroids. Suffers from COPD chronic respiratory failure hypercapnic hypercapnic hypercapni c hypoxemic was bipolar disease. Past Medical History Cardiac Medical History: Reports: Hyperlipidema Pulmonary Medical History: Reports: Asthma, Bronchitis, Chronic Obstructive Pulmonary Disease (COPD), Pneumonia, Sleep Apnea EENT Medical History: Reports: None Neurological Medical History: Reports: None Endocrine Medical History: Reports: None Malignancy Medical History: Reports: None GI Medical History: Reports: Gastroesophageal Reflux Disease, Hiatal Hernia Musculoskeltal Medical History: Reports: Arthritis Skin Medical History: Reports: None Psychiatric Medical History: Reports: Attention Deficit Hyperactivity Disorder, Bipolar Disorder Traumatic Medical History: Reports: None Hematology: Reports: None Infectious Medical History: Reports: None Past Surgical History Past Surgical History: Reports: Appendectomy, Cholecystectomy, Other - Surgery for bladder cancer Social History Lives with: Family Smoking Status: Current Every Day Smoker Cigarettes Packs Per Day: 1 Number of Years Smokin Passive smoke exposure as: Both Frequency of Alcohol Use: Heavy Hx Recreational Drug Use: No Drugs: None Hx Prescription Drug Abuse: No - Advance Directive Resuscitation Status: Full Code Family History Family History: CAD, DM, Hypertension Parental Family History Reviewed: No Children Family History Reviewed: No Sibling(s) Family History Reviewed.: No Medication/Allergy Home Medications: Albuterol Sulfate [Ventolin Hfa] 2 puff IH Q6HP PRN 10/16/17 Budesonide/Formoterol Fumarate [Symbicort HFA 160-4.5 mcg Inhaler 6 gm] 2 puff IH Q12 10/16/17 Ascorbic Acid [Vitamin C] 1,000 mg PO DAILYP PRN 10/27/17 Albuterol Sulfate [Albuterol Sulfate 2.5mg/3 mL] 3 ml IH RTQ4HP PRN #1 vial.neb 11/04/17 Aspirin [Aspirin EC] 81 mg PO DAILY 03/17/18 Buspirone HCl [Buspar 10 mg Tablet] 15 mg PO Q12 tablet 03/25/18 Fluticasone Propionate [Flonase Nasal [place] 50 Mcg/[place] 16 gm] 2 spray NASL DAILY spray.pump 03/25/18 Furosemide [Lasix 20 mg Tablet] 40 mg PO DAILY tablet 03/25/18 Montelukast Sodium [Singulair 10 mg Tablet] 10 mg PO QPM tablet 03/25/18 Sertraline HCl [Zoloft 50 mg Tablet] 50 mg PO HSP PRN tablet 03/25/18 Guaifenesin [Mucinex] 600 mg PO DAILY 05/07/18 Prednisone [Thom] 5 mg PO DAILY 05/07/18 Allergies/Adverse Reactions: No Known Allergies Allergy (Verified 03/16/18 18:39) Review of Systems Constitutional: ABSENT: anorexia, fatigue, night sweats Eyes: ABSENT: visual disturbances Ears: ABSENT: hearing changes Nose, Mouth, and Throat: ABSENT: mouth pain Cardiovascular: PRESENT: dyspnea on exertion, edema. ABSENT: palpitations Respiratory: PRESENT: cough, dyspnea. ABSENT: hemoptysis Gastrointestinal: ABSENT: abdominal pain, bloating, coffee ground emesis, heartburn, hematemesis, hematochezia, melena Genitourinary: ABSENT: dysuria, hematuria Musculoskeletal: ABSENT: deformity, joint swelling Integumentary: ABSENT: lesions, pruritus, rash Neurological: ABSENT: abnormal gait, abnormal movements, abnormal speech, confusion, focal weakness, frequent falls, lack of coordination, memory loss Psychiatric: ABSENT: hallucinations, homidical ideation, suicidal ideation Endocrine: ABSENT: cold intolerance, heat intolerance, polydipsia, polyuria Hematologic/Lymphatic: ABSENT: easy bruising, lymphadenopathy Allergic/Immunologic: ABSENT: seasonal rhinorrhea Physical Exam Vital Signs: Temp Pulse Resp BP Pulse Ox 98.1 F 76 18 138/88 H 93 05/12/18 11:23 05/12/18 11:23 05/12/18 11:23 05/12/18 11:23 05/12/18 11:23 Intake & Output 05/11/18 05/12/18 05/13/18 06:59 06:59 06:59 Intake Total 1270 1948 404 Output Total 1375 550 Balance -105 1398 404 Weight 84.2 kg General appearance: PRESENT: no acute distress, cooperative, disheveled, well- developed Head exam: PRESENT: atraumatic, normocephalic Eye exam: PRESENT: conjunctiva pale, EOMI. ABSENT: nystagmus, scleral icterus Mouth exam: PRESENT: dry mucosa, neck supple, tongue midline Neck exam: ABSENT: carotid bruit, JVD, lymphadenopathy, thyromegaly, tracheal deviation, tracheostomy Respiratory exam: PRESENT: decreased breath sounds, prolonged expiratory phas, rales, rhonchi, symmetrical, unlabored, wheezes. ABSENT: retraction, stridor, tachypnea Cardiovascular exam: PRESENT: RRR, +S1, +S2, tachycardia Pulses: PRESENT: normal radial pulses GI/Abdominal exam: PRESENT: soft. ABSENT: tenderness Extremities exam: PRESENT: pedal edema. ABSENT: calf tenderness, clubbing, joint swelling Musculoskeletal exam: ABSENT: deformity, dislocation Neurological exam: PRESENT: altered, awake Skin exam: PRESENT: dry, warm Results Laboratory Results: 05/12/18 04:30 05/11/18 06:47 05/12/18 04:30 WBC 10.9 H RBC 4.89 Hgb 14.3 Hct 43.2 MCV 88 MCH 29.3 MCHC 33.2 RDW 14.5 H Plt Count 199 Seg Neutrophils % Not Reportable Lymphocytes % Not Reportable Monocytes % Not Reportable Eosinophils % Not Reportable Basophils % Not Reportable Absolute Neutrophils Not Reportable Absolute Lymphocytes Not Reportable Absolute Monocytes Not Reportable Absolute Eosinophils Not Reportable Absolute Basophils Not Reportable 05/07/18 08:42 Troponin I < 0.012 NT-Pro-B Natriuret Pep 90 Impressions: Chest X-Ray 05/08/18 00:00 IMPRESSION: NO ACUTE RADIOGRAPHIC FINDING IN THE CHEST. Assessment & Plan - Diagnosis (1) Acute and chronic respiratory failure with hypercapnia Is this a current diagnosis for this admission?: Yes Plan: Supplemental oxygen as well as NIPPV The above patient has failed BiPAP. This patient would benefit from noninvasive mechanical ventilation via the trilogy AVAPS/AE and faster responding AVAPS rates. The trilogy is able to provide a target tidal volume and also adjusting the EPAP pressures to maintain a patent airway as well as an oral backup rate this machine will help improve PaCO2 levels. The severity of the patient's condition will lead to future hospitalizations and readmissions as well as life- threatening situations without the use of this device day and night. Trilogy home vent needed for hypercapnic respiratory failure. [facility] or [facility] to follow for trilogy set up. (2) Morbid obesity with BMI of 50.0-59.9, adult Is this a current diagnosis for this admission?: Yes Plan: consider consult with bariatric surgeon (3) Tobacco use Is this a current diagnosis for this admission?: Yes Plan: Stop smoking because at length risk of and dangers associated with continued tobacco use (4) Tobacco dependence Is this a current diagnosis for this admission?: Yes Plan: Stop smoking
[2018-05-15] MEDS: MONTELUKAST SODIUM 10 MG TABLET PO SCH (17:12)
--- NOTE | 2018-05-15 17:48 | PDOC PROGRESS REPORT ---
Subjective Progress Note for:: 05/15/18 Subjective:: The patient's trilogy unit has just been delivered. The business process representative is providing instruction. The patient states that he is feeling better. Reason For Visit: A/C RESPIRATORY FAILURE,COPD EXACERBATION Physical Exam Vital Signs: Temp Pulse Resp BP Pulse Ox 98.6 F 97 18 135/89 H 96 05/15/18 11:58 05/15/18 14:13 05/15/18 14:13 05/15/18 11:58 05/15/18 14:13 Intake & Output 05/14/18 05/15/18 05/16/18 06:59 06:59 06:59 Intake Total 2916 2285 750 Output Total 475 Balance 2441 2285 750 Weight 90.1 kg 83.8 kg General appearance: PRESENT: no acute distress, well-developed Head exam: PRESENT: normocephalic Eye exam: PRESENT: conjunctiva pale Ear exam: PRESENT: normal external ear exam Mouth exam: PRESENT: moist Respiratory exam: PRESENT: prolonged expiratory phas, symmetrical, wheezes - Occasional expiratory wheeze. ABSENT: accessory muscle use, rales, rhonchi Cardiovascular exam: PRESENT: RRR, +S1, +S2 GI/Abdominal exam: PRESENT: normal bowel sounds, soft. ABSENT: tenderness Extremities exam: PRESENT: pedal edema Neurological exam: PRESENT: alert, awake, oriented to person, oriented to place, oriented to situation, CN II-XII grossly intact Psychiatric exam: PRESENT: appropriate affect. ABSENT: agitated, anxious Focused psych exam: ABSENT: restlessness Results Laboratory Results: 05/15/18 05:27 05/15/18 05:27 05/15/18 05/15/18 05:27 05:27 WBC 15.8 H RBC 5.21 Hgb 15.4 Hct 46.4 MCV 89 MCH 29.6 MCHC 33.2 RDW 14.7 H Plt Count 182 Sodium 139.3 Potassium 4.2 Chloride 99 Carbon Dioxide 35 H Anion Gap 5 BUN 36 H Creatinine 0.92 Est GFR ( Amer) > 60 Est GFR (Non-Af Amer) > 60 Glucose 118 H Calcium 8.8 Magnesium 2.6 H 05/07/18 08:42 Troponin I < 0.012 NT-Pro-B Natriuret Pep 90 Impressions: Chest X-Ray 05/08/18 00:00 IMPRESSION: NO ACUTE RADIOGRAPHIC FINDING IN THE CHEST. Assessment & Plan - Diagnosis (1) Acute and chronic respiratory failure with hypercapnia Is this a current diagnosis for this admission?: Yes Plan: Continuing nebulizer treatments. We will decrease the Solu-Medrol to 40 mg every 12 with a goal of transitioning to prednisone therapy. The patient's trilogy unit has arrived and he will continue BiPAP. We will complete antibiotic therapy as ordered. He will need to see Dr. Mcdaniel as an outpatient. (2) COPD with exacerbation Is this a current diagnosis for this admission?: Yes Plan: As above (3) Alcohol dependence Qualifiers: Substance use status: unspecified alcohol-induced disorder Qualified Code(s): F10.29 - Alcohol dependence with unspecified alcohol-induced disorder Is this a current diagnosis for this admission?: Yes Plan: No evidence of withdrawal. Encourage cessation. (4) Hyperkalemia Is this a current diagnosis for this admission?: Yes Plan: Resolved. Potassium normal. (5) Tobacco dependence Is this a current diagnosis for this admission?: Yes Plan: Encourage cessation. Nicotine patch available. (6) Obstructive sleep apnea Is this a current diagnosis for this admission?: Yes Plan: Continue BiPAP therapy at home - Time Time Spent with patient: 15-24 minutes Smoking Cessation Education: 3 to 10 minutes Medications reviewed and adjusted accordingly: Yes Anticipated discharge: Home
[2018-05-16] MEDS: IPRATROPIUM/ALBUTEROL 0.5-2.5 MG/3 ML AMPUL NEB SCH ×2 (02:03→08:13)
[2018-05-16] MEDS: HEPARIN SOD (PORCINE) 5,000 UNIT/ML 1 ML SYRINGE SUBCUT SCH (05:53)
[2018-05-16] MEDS: BUSPIRONE HCL 10 MG TABLET PO SCH (09:28)
[2018-05-16] MEDS: FUROSEMIDE 40 MG TABLET PO SCH (09:28)
[2018-05-16] MEDS: ASPIRIN 81 MG TABLET, ENT COATED PO SCH (09:28)
[2018-05-16] MEDS: METHYLPREDNISOLONE INJ 40 MG/1 ML SDV IV SCH (09:28)
[2018-05-16] MEDS: THIAMINE HCL 100 MG TABLET PO SCH (09:28)
[2018-05-16] MEDS: DOCUSATE SODIUM 100 MG CAPSULE PO SCH (09:28)
[2018-05-16] MEDS: FLUTICASONE NASAL SPRAY 50 MCG/SPRY 120 SPRAY/16 GM NASL SCH (09:28)
[2018-05-16] MEDS: FAMOTIDINE 20 MG TABLET PO SCH (09:29)
[2018-05-16] MEDS: MULTIVIT-STRESS FORMULA/ZINC TABLET PO SCH (09:29)
[2018-05-16] MEDS: FOLIC ACID 1 MG TABLET PO SCH (09:29)
[2018-05-16] MEDS: DIAZEPAM 2 MG TABLET PO PRN (09:29)
[2018-05-16] MEDS: SERTRALINE HCL 50 MG TABLET PO SCH (09:29)
[2018-05-16 12:13] VITALS: BP 134/90
--- NOTE | 2018-05-16 14:41 | PDOC DISCHARGE SUMMARY ---
General - Admit/Disc Date/PCP Admission Date/Primary Care Provider: 05/07/18 10:06 JOSSE MORTENSEN MD Discharge Date: 05/16/18 - Discharge Diagnosis (1) Acute and chronic respiratory failure with hypercapnia Is this a current diagnosis for this admission?: Yes Summary: Continue inhalers as well as scheduled nebulizer treatments at home. He will also be on a prednisone taper lasting 32 days. I have asked that the patient see Dr. Mcdaniel in approximately 2 weeks. His trilogy was delivered yesterday. He is comfortable operating the machine. The [employer] company will follow up with the patient at home. (2) COPD with exacerbation Is this a current diagnosis for this admission?: Yes Summary: As above. The patient did complete a course of antibiotics during his admission. (3) Alcohol dependence Is this a current diagnosis for this admission?: Yes Summary: Encourage abstinence. Ongoing use of alcohol certainly will have long-term a dverse effects. (4) Hyperkalemia Is this a current diagnosis for this admission?: Yes Summary: Resolved (5) Tobacco dependence Is this a current diagnosis for this admission?: Yes Summary: Suggest continued use of nicotine patch at home. Encouraged abstinence. (6) Obstructive sleep apnea Is this a current diagnosis for this admission?: Yes Summary: The patient now has a home trilogy unit. In addition to nighttime use with oxygen bleed in he can certainly use it during the day if he feels short of breath. (7) Morbid obesity with BMI of 50.0-59.9, adult Is this a current diagnosis for this admission?: Yes Summary: Encourage dietary discretion. Unfortunately the steroids may add weight. - Additional Information Resuscitation Status: Full Code Discharge Diet: Cardiac Discharge Activity: Activity As Tolerated Prescriptions: Albuterol Sulfate [Ventolin 0.083% Neb 2.5 mg/3 mL Ampul] 2.5 mg NEB RTQ2HP PRN 30 Days #100 vial.neb PRN Reason: Ipratropium/Albuterol Sulfate [Duoneb 3 ml Ampul] 3 ml NEB RTQ6 30 Days #120 vial.neb Prednisone [Deltasone 5 mg Tablet] 5 mg PO ASDIR 32 Days #144 tablet Sertraline HCl [Zoloft 50 mg Tablet] 50 mg PO DAILY 30 Days #30 tablet Home Medications: Albuterol Sulfate [Ventolin Hfa] 2 puff IH Q6HP PRN 10/16/17 Budesonide/Formoterol Fumarate [Symbicort HFA 160-4.5 mcg Inhaler 6 gm] 2 puff IH Q12 10/16/17 Ascorbic Acid [Vitamin C] 1,000 mg PO DAILYP PRN 10/27/17 Albuterol Sulfate [Albuterol Sulfate 2.5mg/3 mL] 3 ml IH RTQ4HP PRN #1 vial.neb 11/04/17 Aspirin [Aspirin EC] 81 mg PO DAILY 03/17/18 Buspirone HCl [Buspar 10 mg Tablet] 15 mg PO Q12 tablet 03/25/18 Fluticasone Propionate [Flonase Nasal Alpine 50 Mcg/Alpine 16 gm] 2 spray NASL DAILY spray.pump 03/25/18 Furosemide [Lasix 20 mg Tablet] 40 mg PO DAILY tablet 03/25/18 Montelukast Sodium [Singulair 10 mg Tablet] 10 mg PO QPM tablet 03/25/18 Guaifenesin [Mucinex] 600 mg PO DAILY 05/07/18 Prednisone [Thom] 5 mg PO DAILY 05/07/18 Acetaminophen [Tylenol 325 mg Tablet] 650 mg PO Q4HP PRN tablet 05/16/18 Albuterol Sulfate [Ventolin 0.083% Neb 2.5 mg/3 mL Ampul] 2.5 mg NEB RTQ2HP PRN 30 Days #100 vial.neb 05/16/18 Docusate Sodium [Colace 100 mg Capsule] 100 mg PO DAILY capsule 05/16/18 Famotidine [Pepcid 20 mg Tablet] 20 mg PO Q12 tablet 05/16/18 Folic Acid [Folvite 1 mg Tablet] 1 mg PO DAILY tablet 05/16/18 Furosemide [Lasix 40 mg Tablet] 40 mg PO DAILY tablet 05/16/18 Ipratropium/Albuterol Sulfate [Duoneb 3 ml Ampul] 3 ml NEB RTQ6 30 Days #120 vial.neb 05/16/18 Nicotine [Nicoderm 7 mg/24 Hr Transdermal Patch] 1 each TD DAILYP PRN patch.t d24 05/16/18 Prednisone [Deltasone 5 mg Tablet] 5 mg PO ASDIR 32 Days #144 tablet 05/16/18 Sertraline HCl [Zoloft 50 mg Tablet] 50 mg PO DAILY 30 Days #30 tablet 05/16/18 History of Present Illness Patient complains of: Increased shortness of breath History of Present Illness: MANI FLYNN is a 67 year old male who presented to the hospital with worsening shortness of breath. Please also see the admission history and phys ical. He experienced an acute onset of shortness of breath with a nonproductive cough. He had tried increasing his home oxygen and utilizing nebulizer therapy. This was ineffective. He was transferred to the emergency department and was diagnosed with acute exacerbation of his chronic COPD. His PCO2 was elevated at 99. He did receive a course of antibiotics as well as systemic steroids and a ggressive nebulizer treatments. Hospital Course Hospital Course: The patient had a fairly uncomplicated but extended hospital course. His resolution was slow and steady. His home trilogy unit was finally delivered yesterday. Today he feels comfortable operating the machine. I was able to discharge him to home. Physical Exam Vital Signs: Temp Pulse Resp BP Pulse Ox 97.8 F 86 16 149/84 H 94 05/16/18 11:41 05/16/18 11:41 05/16/18 11:41 05/16/18 11:41 05/16/18 11:41 Intake & Output 05/15/18 05/16/18 05/17/18 06:59 06:59 06:59 Intake Total 2285 2100 413 Balance 2285 2100 413 Weight 83.8 kg 86 kg General appearance: PRESENT: no acute distress, morbidly obese, well-developed Head exam: PRESENT: normocephalic Respiratory exam: PRESENT: clear to auscultation abimbola, prolonged expiratory phas, symmetrical. ABSENT: rales, rhonchi, wheezes Cardiovascular exam: PRESENT: RRR, +S1, +S2 GI/Abdominal exam: PRESENT: normal bowel sounds, soft. ABSENT: distended, tenderness Musculoskeletal exam: PRESENT: ambulatory Neurological exam: PRESENT: alert, awake, oriented to person, oriented to place, oriented to time, oriented to situation, CN II-XII grossly intact Psychiatric exam: PRESENT: appropriate affect, other - Exhibited quite a good sense of humor. ABSENT: agitated, anxious Focused psych exam: PRESENT: restlessness Results Laboratory Results: 05/15/18 05:27 05/15/18 05:27 05/07/18 08:42 Troponin I < 0.012 NT-Pro-B Natriuret Pep 90 Impressions: Chest X-Ray 05/08/18 00:00 IMPRESSION: NO ACUTE RADIOGRAPHIC FINDING IN THE CHEST. Qualifiers - * PATIENT BEING DISCHARGED WITH ANY OF THE FOLLOWING DIAGNOSIS: No Plan Time Spent: Greater than 30 Minutes
== END 2018-05-16 12:18 | disposition home or self-care (01) | DRG 189 ==
LOC: ER 08:21 → EH 10:06 → 3W 12:16
PROVIDERS: ADMIT Internal Medicine; ATTEND Internal Medicine
PROC: 5A09357 Assistance with Respiratory Ventilation, Less than 24 Consecutive Hours, Continuous Positive Airway Pressure (ICD-10-PCS; principal; 2018-05-07)
DX: J96.22 Acute and chronic respiratory failure with hypercapnia (principal); J44.1 Chronic obstructive pulmonary disease with (acute) exacerbation; Z68.43 Body mass index [BMI] 50.0-59.9, adult; F10.20 Alcohol dependence, uncomplicated; E87.5 Hyperkalemia; G47.33 Obstructive sleep apnea (adult) (pediatric); E66.01 Morbid (severe) obesity due to excess calories; Z79.82 Long term (current) use of aspirin; Z79.899 Other long term (current) drug therapy; Z99.81 Dependence on supplemental oxygen; E78.5 Hyperlipidemia, unspecified; K21.9 Gastro-esophageal reflux disease without esophagitis; K44.9 Diaphragmatic hernia without obstruction or gangrene; F90.9 Attention-deficit hyperactivity disorder, unspecified type; F31.9 Bipolar disorder, unspecified; Z90.49 Acquired absence of other specified parts of digestive tract; F17.210 Nicotine dependence, cigarettes, uncomplicated
CPT/HCPCS: 36415; 36600; 71045; 80048; 80053; 82803; 83036; 83735; 83880; 84484; 85025; 85027; 93005; 93010; 94640; 94660; 96365; 96375; 99285; J0692; J1644; J1940; J1956; J2920; J2930; J3475; J3490; J7030; J7620

== ENCOUNTER 2018-07-28 18:34 | Inpatient (IN) | payer MEDICARE ==
[2018-07-28] MEDS ORDERED: NORMAL SALINE 1000 ML 1,000 ML IV ONE (20:43)
[2018-07-28] MEDS ORDERED: ALBUTEROL SULFATE 0.083% NEB 2.5 MG/3 ML AMPUL NEB ONE ×2 (20:43→22:47)
[2018-07-28] MEDS ORDERED: METHYLPREDNISOLONE INJ 125 MG/2 ML SDV IV ONE (20:43)
[2018-07-28] MEDS ORDERED: IPRATROPIUM/ALBUTEROL 0.5-2.5 MG/3 ML AMPUL NEB ONE ×2 (20:43→22:47)
[2018-07-28 21:10] LABS: ABSOLUTE BASOPHILS # (AUTO) 0.1 10^3/uL (0.0-0.2); ABSOLUTE EOSINOPHILS # (AUTO) 0.1 10^3/uL (0.0-0.6); ABSOLUTE LYMPHOCYTES (AUTO) 3.2 10^3/uL (0.5-4.7); ABSOLUTE MONOCYTES (AUTO) 0.9 10^3/uL (0.1-1.4); ABSOLUTE NEUT (AUTO) 4.3 10^3/uL (1.7-8.2); BASOPHILS % (AUTO) 0.7 % (0-2); EOSINOPHILS % (AUTO) 1.5 % (0-6); HEMATOCRIT 44.5 % (37.9-51.0); LYMPHOCYTES % (AUTO) 37.5 % (13-45); MEAN CORPUSCULAR HEMOGLOBIN 30.9 pg (27.0-33.4); MEAN CORPUSCULAR HGB CONC 33.7 g/dL (32.0-36.0); MEAN CORPUSCULAR VOLUME 92 fl (80-97); MONOCYTES % (AUTO) 10.8 % (3-13); PLATELET COUNT 192 10^3/uL (150-450); RED BLOOD COUNT 4.85 10^6/uL (4.35-5.55); RED CELL DISTRIBUTION WIDTH 14.8 % (11.5-14.0); SEGMENTED NEUTROPHILS % (AUTO) 49.5 % (42-78); TOTAL CELLS COUNTED % (AUTO) 100 %; WHITE BLOOD COUNT 8.6 10^3/uL (4.0-10.5)
[2018-07-28 21:16] LABS: INTERNATIONAL RATION (INR) 0.89; PROTHROMBIN TIME 12.5 SEC (11.4-15.4)
[2018-07-28 21:18] LABS: VENOUS BLOOD BASE EXCESS 5.5 mmol/L; VENOUS BLOOD HCO3 35.4 mmol/L (20-32); VENOUS BLOOD PH 7.28 (7.30-7.42)
[2018-07-28 21:23] LABS: ALANINE AMINOTRANSFERASE 15 U/L (21-72); ALBUMIN 4.4 g/dL (3.5-5.0); ALKALINE PHOSPHATASE 81 U/L (38-126); ANION GAP 7 (5-19); ASPARTATE AMINO TRANSFERASE 42 U/L (17-59); BILIRUBIN,DIRECT 0.3 mg/dL (0.0-0.4); BILIRUBIN,TOTAL 0.3 mg/dL (0.2-1.3); BLOOD UREA NITROGEN 14 mg/dL (7-20); CALCIUM 9.7 mg/dL (8.4-10.2); CARBON DIOXIDE 34 mmol/L (22-30); CHLORIDE 99 mmol/L (98-107); GLUCOSE 96 mg/dL (75-110); POTASSIUM 4.2 mmol/L (3.6-5.0); SODIUM 140.4 mmol/L (137-145); TOTAL PROTEIN 7.7 g/dL (6.3-8.2)
[2018-07-28 21:27] LABS: VENOUS BLOOD PCO2 77.7 mmHg (35-63)
--- NOTE | 2018-07-28 21:37 | RADIOLOGY REPORT (SQ) ---
XR CHEST 1 VIEW HISTORY: SOB, cough, hypoxia. COMPARISON: None. FINDINGS: The heart size is normal. The lungs are clear. No pleural effusion or pneumothorax is seen. No acute bony findings. IMPRESSION: No evidence of acute cardiopulmonary disease.
[2018-07-28 21:51] LABS: APPEARANCE,URINE CLOUDY; BILIRUBIN,URINE NEGATIVE (NEGATIVE); COLOR,URINE YELLOW; GLUCOSE, URINE NEGATIVE (NEGATIVE); KETONES,URINE NEGATIVE (NEGATIVE); LEUKOCYTE ESTERASE,URINE LARGE (NEGATIVE); NITRITE,URINE POSITIVE (NEGATIVE); PROTEIN,URINE NEGATIVE (NEGATIVE); URINE SPECIFIC GRAVITY 1.012; UROBILINOGEN,URINE NEGATIVE mg/dL (<2.0)
--- NOTE | 2018-07-28 22:44 | EKG REPORT ---
SEVERITY:- BORDERLINE ECG - SINUS RHYTHM BORDERLINE RIGHT AXIS DEVIATION BORDERLINE INFERIOR Q WAVES : Confirmed by: Phil De Leon MD 28-Jul-2018 22:43:01
[2018-07-28] MEDS ORDERED: CEFTRIAXONE 1 GM/D5W RTU 1 GM/50 ML RTUPB IV ONE (23:34)
--- NOTE | 2018-07-29 01:00 | RADIOLOGY REPORT (SQ) ---
EXAM DESCRIPTION: CT CHEST ANGIOGRAPHY WITHOUT THEN WITH IV CONTRAST COMPLETED DATE/TME: 07/28/2018 23:35 CLINICAL HISTORY: 67 years, Male, hypoxia, SOB COMPARISON: None. Limitations: Images are degraded due to respiratory motion artifact. TECHNIQUE: Axial images through the chest were performed after the administration of intravenous contrast using a pulmonary embolus protocol. MIPS were performed. This exam was performed according to our departmental dose-optimization program which includes use of Automated Exposure Control, adjustment of the mA and/or kV according to patient size and/or use of iterative reconstruction technique. FINDINGS: No pulmonary embolus is identified however the segmental branches are not well visualized due to respiratory motion artifact.. Normal caliber aorta without dissection. No pericardial effusion. No pleural effusion. No focal lung consolidation. No pneumothorax. Patent central airway. Soft tissues are unremarkable. No acute osseous findings. No acute abnormality within the visualized upper abdomen. IMPRESSION: No pulmonary embolus although the segmental branches are not well visualized due to respiratory motion artifact..
[2018-07-29] MEDS ORDERED: ALBUTEROL SULFATE 0.083% NEB 2.5 MG/3 ML AMPUL NEB ONE (01:45)
--- NOTE | 2018-07-29 01:50 | ER Document Report ---
Entered by JALIL BREEN SCRIBE 07/28/18 [id number] Acting as scribe for:EMILY THOMPSON DO ED Respiratory Problem - General Chief Complaint: Breathing Difficulty Stated Complaint: SHORTNESS OF BREATH Information source: Patient Notes: 67-year-old male who presents to the emergency department today with complaints of increasing shortness of breath over the last week. Patient has a history of COPD and does still smoke. Patient mentions that with this shortness of breath he has noticed pain over his right side/back/flank but that he "cannot really tell where exactly it is coming from". Patient states he has had a productive cough as well. Patient states he has been using his breathing treatments and inhalers at home every 3-4 hours. Patient denies any fevers, recent antibiotic usage, recent steroid usage, chest pain, or history of intubation for COPD exacerbation. TRAVEL OUTSIDE OF THE [place] IN LAST 30 DAYS: No - Related Data Allergies/Adverse Reactions: No Known Allergies Allergy (Verified 03/16/18 18:39) Past Medical History - General Information source: Patient - Social History Smoking Status: Current Every Day Smoker Cigarette use (# per day): Yes Frequency of alcohol use: None Drug Abuse: None Lives with: Family Family History: Reviewed & Not Pertinent, CAD, DM, Hypertension - Past Medical History Cardiac Medical History: Reports: Hx Hypercholesterolemia Pulmonary Medical History: Reports: Hx Asthma, Hx Bronchitis, Hx COPD, Hx Pneumonia, Hx Sleep Apnea Renal/ Medical History: Reports: Hx Kidney Stones GI Medical History: Reports: Hx Gastroesophageal Reflux Disease, Hx Hiatal Hernia, Hx Ulcer Musculoskeletal Medical History: Reports Hx Arthritis Psychiatric Medical History: Reports: Hx Attention Deficit Hyperactivity Di sorder, Hx Bipolar Disorder Past Surgical History: Reports: Hx Appendectomy, Hx Cholecystectomy, Hx Genitourinary Surgery - removal of bladder cancer x2 - Immunizations Hx Diphtheria, Pertussis, Tetanus Vaccination: Yes Hx Pneumococcal Vaccination: 05/16/11 Review of Systems - Review of Systems Constitutional: denies: Fever EENT: No symptoms reported Cardiovascular: denies: Chest pain Respiratory: See HPI, Cough, Short of breath Gastrointestinal: No symptoms reported Genitourinary: No symptoms reported Male Genitourinary: No symptoms reported Musculoskeletal: See HPI, Other - right sided flank/side/back pain Skin: No symptoms reported Hematologic/Lymphatic: No symptoms reported Neurological/Psychological: No symptoms reported -: Yes All other systems reviewed and negative Physical Exam - Vital signs Vitals: Temp Pulse Resp BP Pulse Ox 99.0 F 108 H 22 H 123/76 92 07/28/18 18:41 07/28/18 18:41 07/28/18 18:41 07/28/18 18:41 07/28/18 18:41 - Notes Notes: PHYSICAL EXAM GENERAL: Alert, interacts well. Appears acutely short of breath. Pulse oximeter at bedside shows saturation of 96% with good waveform on 4L via nasal cannula, no hypoxia per my interpretation. Patient uses 3L of home oxygen at baseline. HEAD: Normocephalic, atraumatic. EYES: Pupils equal, round, and reactive to light. Extraocular movements intact. ENT: Oral mucosa moist, tongue midline. NECK: Full range of motion. Supple. Trachea midline. LUNGS: Clear to auscultation bilaterally with poor air movement throughout, no wheezes, rales, or rhonchi. Moderate respiratory distress, accessory muscle usage. HEART: Tachycardic, regular rhythm. No murmurs, gallops, or rubs. ABDOMEN: Soft, non-tender. Non-distended. Bowel sounds present in all 4 quadrants. No guarding, rigidity, or rebound. EXTREMITIES: Moves all 4 extremities spontaneously. No edema, radial and dorsalis pedis pulses 2/4 bilaterally. No cyanosis. NEUROLOGICAL: Alert and oriented x3. Normal speech. PSYCH: Normal affect, normal mood. SKIN: Warm, dry, normal turgor. No rashes or lesions noted. Course - Re-evaluation Re-evalutation: 07/29/18 01:48 CBC unremarkable, coags normal, venous blood gas shows hypercarbia with respiratory acidosis, pH of 7.28, PCO2 is elevated at 77.7, chemistries show slightly elevated creatinine 1.27 otherwise unremarkable, lactic acid is normal, urinalysis surprisingly shows positive nitrates and large leukocyte esterase, this is been sent for culture and has been started on Rocephin. Chest x-ray shows no acute process, I am concerned by the fact the patient still has increased work of breathing and no significant relief of his dyspnea with multiple breathing treatments and steroids, CT angiogram was ordered for the dyspnea and hypoxia, it was negative for PE. Patient is being placed on BiPAP. Patient was discussed with Dr. Cummins who accepts the patient for admission to his service on the telemetry care unit. He requests that a beta natruretic peptide be ordered. 07/29/18 03:30 After patient's first set of breathing treatment he still had increased work of breathing and had a significant increase in wheezing. After multiple of the breathing treatments patient still had significant tachypnea and diffuse expiratory wheezing. Patient was able to be waeaned down to his usual 3 L NC - Vital Signs Vital signs: Temp Pulse Resp BP Pulse Ox 98.7 F 89 19 123/75 94 07/29/18 02:57 07/29/18 01:53 07/29/18 02:57 07/29/18 02:57 07/29/18 02:57 - Laboratory Result Diagrams: 07/28/18 20:55 07/28/18 20:55 Laboratory results interpreted by me: 07/28/18 07/28/18 07/28/18 20:55 20:55 20:55 RDW 14.8 H VBG pH 7.28 L VBG pCO2 77.7 H* VBG HCO3 35.4 H Carbon Dioxide 34 H Creatinine 1.27 H Est GFR (Non-Af Amer) 57 L ALT 15 L Urine Blood Urine Nitrite Ur Leukocyte Esterase 07/28/18 21:20 RDW VBG pH VBG pCO2 VBG HCO3 Carbon Dioxide Creatinine Est GFR (Non-Af Amer) ALT Urine Blood SMALL H Urine Nitrite POSITIVE H Ur Leukocyte Esterase LARGE H - EKG Interpretation by Me Additional EKG results interpreted by me: 07/29/18 01:49 EKG shows sinus rhythm rate of 94, minimal ST segment elevations in leads II, III and aVF, each of them are less than 1 mm, there are no reciprocal changes, T wave flattening in aVL, no T wave inversions per my interpretation. Critical Care Note - Critical Care Note Total time excluding time spent on procedures (mins): 45 Discharge - Discharge Clinical Impression: Acute and chronic respiratory failure with hypercapnia, COPD with exacerbation, Tobacco use, Acute respiratory acidosis Condition: Fair Disposition: ADMITTED INPATIENT Admitting Provider: Lilia cummins Unit Admitted: Telemetry I personally performed the services described in the documentation, reviewed and edited the documentation which was dictated to the scribe in my presence, and it accurately records my words and actions.
[2018-07-29] MEDS ORDERED: ACETAMINOPHEN 325 MG TABLET PO PRN (01:52)
[2018-07-29] MEDS ORDERED: IPRATROPIUM/ALBUTEROL 0.5-2.5 MG/3 ML AMPUL NEB PRN (01:52)
[2018-07-29] MEDS ORDERED: HYDRALAZINE HCL INJ/PF 20 MG/1 ML SDV IV PRN (01:52)
[2018-07-29] MEDS ORDERED: CHLORPHENIRAMINE MALEATE 4 MG TABLET PO ONE (01:52)
[2018-07-29] MEDS ORDERED: AZITHROMYCIN 500 MG in DEXTROSE 5%-WATER 250 ML IV ONE (02:30)
[2018-07-29] MEDS ORDERED: AZITHROMYCIN INJ 500 MG VIAL IV PRN (02:34)
[2018-07-29] MEDS: FAMOTIDINE 20 MG TABLET PO SCH ×3 (02:44→22:18)
[2018-07-29] MEDS: IPRATROPIUM/ALBUTEROL 0.5-2.5 MG/3 ML AMPUL NEB SCH ×4 (02:53→20:09)
[2018-07-29] MEDS: HEPARIN SOD (PORCINE) 5,000 UNIT/ML 1 ML SYRINGE SUBCUT SCH ×3 (05:50→22:18)
[2018-07-29] MEDS ORDERED: LACTULOSE SYRUP 20 GM/30 ML UDCUP PO ONE ×2 (06:39→11:30)
--- NOTE | 2018-07-29 06:46 | PDOC H&P ---
History of Present Illness Admission Date/PCP: 07/29/18 02:15 JOSSE MORTENSEN MD Patient complains of: Shortness of breath History of Present Illness: MANI FLYNN is a 67 year old male with a past medical history of chronic bronchitis, oxygen dependent COPD and persistent tobacco dependence. He presents with right sided abdominal pain and shortness of breath. He is found to have tachycardia prompting CTA chest which is negative but also a urinalysis with pyuria. He denies recent excruciating or sharp lancing pain to the groin or recent antibiotic use. He started on albuterol, Atrovent, oxygen and empiric antibiotics then referred to the hospitalist for admission. Past Medical History Cardiac Medical History: Reports: Hyperlipidema Pulmonary Medical History: Reports: Asthma, Bronchitis, Chronic Obstructive Pulmonary Disease (COPD), Pneumonia, Sleep Apnea GI Medical History: Reports: Gastroesophageal Reflux Disease, Hiatal Hernia Musculoskeltal Medical History: Reports: Arthritis Psychiatric Medical History: Reports: Attention Deficit Hyperactivity Disorder, Bipolar Disorder, Depression, Tobacco Dependency Past Surgical History Past Surgical History: Reports: Appendectomy, Cholecystectomy, Other - Surgery for bladder cancer Social History Information Source: Patient Lives with: Family Smoking Status: Current Every Day Smoker Cigarettes Packs Per Day: 0.2 Number of Years Smokin Frequency of Alcohol Use: Heavy Hx Recreational Drug Use: No Drugs: None Hx Prescription Drug Abuse: No - Advance Directive Resuscitation Status: Full Code Family History Family History: CAD, DM, Hypertension Parental Family History Reviewed: Yes Children Family History Reviewed: Yes Sibling(s) Family History Reviewed.: Yes Medication/Allergy Home Medications: Albuterol Sulfate [Ventolin Hfa] 2 puff IH Q6HP PRN 10/16/17 Budesonide/Formoterol Fumarate [Symbicort HFA 160-4.5 mcg Inhaler 6 gm] 2 puff IH Q12 10/16/17 Ascorbic Acid [Vitamin C] 1,000 mg PO DAILYP PRN 10/27/17 Albuterol Sulfate [Albuterol Sulfate 2.5mg/3 mL] 3 ml IH RTQ4HP PRN #1 vial.neb 11/04/17 Aspirin [Aspirin EC] 81 mg PO DAILY 03/17/18 Buspirone HCl [Buspar 10 mg Tablet] 15 mg PO Q12 tablet 03/25/18 Fluticasone Propionate [Flonase Nasal Crete 50 Mcg/Crete 16 gm] 2 spray NASL DAILY spray.pump 03/25/18 Furosemide [Lasix 20 mg Tablet] 40 mg PO DAILY tablet 03/25/18 Montelukast Sodium [Singulair 10 mg Tablet] 10 mg PO QPM tablet 03/25/18 Guaifenesin [Mucinex] 600 mg PO DAILY 05/07/18 Prednisone [Thom] 5 mg PO DAILY 05/07/18 Acetaminophen [Tylenol 325 mg Tablet] 650 mg PO Q4HP PRN tablet 05/16/18 Albuterol Sulfate [Ventolin 0.083% Neb 2.5 mg/3 mL Ampul] 2.5 mg NEB RTQ2HP PRN 30 Days #100 vial.neb 05/16/18 Docusate Sodium [Colace 100 mg Capsule] 100 mg PO DAILY capsule 05/16/18 Famotidine [Pepcid 20 mg Tablet] 20 mg PO Q12 tablet 05/16/18 Folic Acid [Folvite 1 mg Tablet] 1 mg PO DAILY tablet 05/16/18 Furosemide [Lasix 40 mg Tablet] 40 mg PO DAILY tablet 05/16/18 Ipratropium/Albuterol Sulfate [Duoneb 3 ml Ampul] 3 ml NEB RTQ6 30 Days #120 vial.neb 05/16/18 Nicotine [Nicoderm 7 mg/24 Hr Transdermal Patch] 1 each TD DAILYP PRN patch.td24 05/16/18 Prednisone [Deltasone 5 mg Tablet] 5 mg PO ASDIR 32 Days #144 tablet 05/16/18 Sertraline HCl [Zoloft 50 mg Tablet] 50 mg PO DAILY 30 Days #30 tablet 05/16/18 Allergies/Adverse Reactions: No Known Allergies Allergy (Verified 03/16/18 18:39) Review of Systems Constitutional: ABSENT: chills, fever(s), headache(s), weight gain, weight loss Eyes: ABSENT: visual disturbances Ears: ABSENT: hearing changes Cardiovascular: ABSENT: chest pain, dyspnea on exertion, edema, orthropnea, palpitations Respiratory: ABSENT: cough, hemoptysis Gastrointestinal: PRESENT: constipation. ABSENT: abdominal pain, diarrhea, hematemesis, hematochezia, nausea, vomiting Genitourinary: ABSENT: dysuria, hematuria Musculoskeletal: ABSENT: joint swelling Integumentary: ABSENT: rash, wounds Neurological: ABSENT: abnormal gait, abnormal speech, confusion, dizziness, focal weakness, syncope Psychiatric: ABSENT: anxiety, depression, homidical ideation, suicidal ideation Endocrine: ABSENT: cold intolerance, heat intolerance, polydipsia, polyuria Hematologic/Lymphatic: ABSENT: easy bleeding, easy bruising Physical Exam Vital Signs: Temp Pulse Resp BP Pulse Ox 97.8 F 76 17 116/74 93 07/29/18 03:20 07/29/18 03:51 07/29/18 03:20 07/29/18 03:20 07/29/18 03:20 Intake & Output 07/27/18 07/28/18 07/29/18 11:59 11:59 11:59 Intake Total 1300 Balance 1300 Weight 92.2 kg General appearance: PRESENT: cooperative, disheveled, mild distress, well- developed Head exam: PRESENT: atraumatic, normocephalic Eye exam: PRESENT: conjunctiva pink, EOMI, PERRLA. ABSENT: scleral icterus Ear exam: PRESENT: normal external ear exam Mouth exam: PRESENT: moist, tongue midline Neck exam: ABSENT: carotid bruit, JVD, lymphadenopathy, thyromegaly Respiratory exam: PRESENT: accessory muscle use, crackles, prolonged expiratory phas, tachypnea. ABSENT: rhonchi Cardiovascular exam: PRESENT: RRR, tachycardia. ABSENT: diastolic murmur, rubs, systolic murmur Pulses: PRESENT: normal dorsalis pedis pul Vascular exam: PRESENT: normal capillary refill GI/Abdominal exam: PRESENT: normal bowel sounds, soft, tenderness - Diffuse tenderness without guarding. ABSENT: distended, guarding, mass, organolmegaly, rebound Rectal exam: PRESENT: deferred Extremities exam: PRESENT: full ROM. ABSENT: calf tenderness, clubbing, pedal edema Neurological exam: PRESENT: alert, awake, oriented to person, oriented to place, oriented to time, oriented to situation, CN II-XII grossly intact. ABSENT: motor sensory deficit Psychiatric exam: PRESENT: appropriate affect, normal mood. ABSENT: homicidal ideation, suicidal ideation Skin exam: PRESENT: dry, intact, warm. ABSENT: cyanosis, rash Results Laboratory Results: 07/28/18 20:55 07/28/18 20:55 07/28/18 07/28/18 07/28/18 20:55 20:55 20:55 WBC 8.6 RBC 4.85 Hgb 15.0 Hct 44.5 MCV 92 MCH 30.9 MCHC 33.7 RDW 14.8 H Plt Count 192 Seg Neutrophils % 49.5 Lymphocytes % 37.5 Monocytes % 10.8 Eosinophils % 1.5 Basophils % 0.7 Absolute Neutrophils 4.3 Absolute Lymphocytes 3.2 Absolute Monocytes 0.9 Absolute Eosinophils 0.1 Absolute Basophils 0.1 VBG pH VBG pCO2 VBG HCO3 VBG Base Excess Sodium 140.4 Potassium 4.2 Chloride 99 Carbon Dioxide 34 H Anion Gap 7 BUN 14 Creatinine 1.27 H Est GFR ( Amer) > 60 Est GFR (Non-Af Amer) 57 L Glucose 96 Lactic Acid 1.0 Calcium 9.7 Total Bilirubin 0.3 AST 42 ALT 15 L Alkaline Phosphatase 81 Total Protein 7.7 Albumin 4.4 Urine Color Urine Appearance Urine pH Ur Specific [place] Urine Protein Urine Glucose (UA) Urine Ketones Urine Blood Urine Nitrite Ur Leukocyte Esterase Urine WBC (Auto) Urine RBC (Auto) 07/28/18 07/28/18 20:55 21:20 WBC RBC Hgb Hct MCV MCH MCHC RDW Plt Count Seg Neutrophils % Lymphocytes % Monocytes % Eosinophils % Basophils % Absolute Neutrophils Absolute Lymphocytes Absolute Monocytes Absolute Eosinophils Absolute Basophils VBG pH 7.28 L VBG pCO2 77.7 H* VBG HCO3 35.4 H VBG Base Excess 5.5 Sodium Potassium Chloride Carbon Dioxide Anion Gap BUN Creatinine Est GFR ( Amer) Est GFR (Non-Af Amer) Glucose Lactic Acid Calcium Total Bilirubin AST ALT Alkaline Phosphatase Total Protein Albumin Urine Color YELLOW Urine Appearance CLOUDY Urine pH 7.0 Ur Specific [place] 1.012 Urine Protein NEGATIVE Urine Glucose (UA) NEGATIVE Urine Ketones NEGATIVE Urine Blood SMALL H Urine Nitrite POSITIVE H Ur Leukocyte Esterase LARGE H Urine WBC (Auto) >182 Urine RBC (Auto) 17 07/28/18 20:55 NT-Pro-B Natriuret Pep 16 Impressions: Chest X-Ray 07/28/18 20:43 IMPRESSION: No evidence of acute cardiopulmonary disease. Chest/Abdomen CTA 07/28/18 23:35 IMPRESSION: No pulmonary embolus although the segmental branches are not well visualized due to respiratory motion artifact.. Assessment & Plan - Diagnosis (1) Urinary tract infection Is this a current diagnosis for this admission?: Yes Plan: Unclear cause, no source of obstruction, empiric antibiotics, follow-up CBC and culture (2) Acute and chronic respiratory failure with hypercapnia Is this a current diagnosis for this admission?: Yes Plan: Incentive spirometry, flutter valve, supplemental oxygen and antibiotics. (3) Acute bronchitis Qualifiers: Is this a current diagnosis for this admission?: Yes Plan: Flutter valve, albuterol and Atrovent, antibiotics (4) Tobacco use Is this a current diagnosis for this admission?: Yes Plan: Tobacco Dependence patient received tobacco cessation counseling and offered nicotine replacement options (5) Constipation Is this a current diagnosis for this admission?: Yes Plan: Lactulose - Time Time Spent: 50 to 70 Minutes
[2018-07-29] MEDS: SERTRALINE HCL 50 MG TABLET PO SCH (09:17)
[2018-07-29] MEDS: GUAIFENESIN 600 MG TABLET.SA PO SCH (09:17)
[2018-07-29] MEDS: ASPIRIN 81 MG TABLET, ENT COATED PO SCH (09:17)
[2018-07-29] MEDS: FUROSEMIDE 40 MG TABLET PO SCH (09:17)
[2018-07-29] MEDS: CEFTRIAXONE 1 GM/D5W RTU 1 GM/50 ML RTUPB IV SCH (09:17)
[2018-07-29] MEDS: DOCUSATE SODIUM 100 MG CAPSULE PO SCH (09:17)
[2018-07-29] MEDS: FOLIC ACID 1 MG TABLET PO SCH (09:17)
[2018-07-29] MEDS: FLUTICASONE NASAL SPRAY 50 MCG/SPRY 120 SPRAY/16 GM NASL SCH (11:19)
[2018-07-29] MEDS: FLUTICASONE/VILANTEROL 200-25 MCG/DOSE IH SCH (11:20)
[2018-07-29] MEDS: METHYLPREDNISOLONE INJ 40 MG/1 ML SDV IV SCH ×2 (11:20→22:18)
--- NOTE | 2018-07-29 14:13 | PDOC PROGRESS REPORT ---
Subjective Progress Note for:: 07/29/18 Subjective:: This is a 67 year old male with a past medical history of COPD on 3 lpm at home and persistent tobacco dependence. Patient is also an alcohol drinker. He presents with right sided abdominal pain and shortness of breath. He is found to have tachycardia prompting CTA chest which is negative but also a urinalysis with pyuria. He was admitted for COPD exacerbation and UTI. No acute event overnight. He says his breathing has improved today. He does complain of right flank pain. Denies chest pain. Reason For Visit: ACUTE BRONCHITIS,COPD EXACERBATION Physical Exam Vital Signs: Temp Pulse Resp BP Pulse Ox 97.6 F 76 16 123/74 100 07/29/18 08:16 07/29/18 08:16 07/29/18 08:16 07/29/18 08:16 07/29/18 08:16 Intake & Output 07/28/18 07/29/18 07/30/18 06:59 06:59 06:59 Intake Total 1300 577 Output Total 1550 Balance 1300 -973 Weight 203 lb 4.259 oz 203 lb 4.259 oz General appearance: PRESENT: no acute distress, well-developed, well-nourished Head exam: PRESENT: atraumatic, normocephalic Eye exam: PRESENT: conjunctiva pink, EOMI, PERRLA. ABSENT: scleral icterus Ear exam: PRESENT: normal external ear exam Mouth exam: PRESENT: moist, tongue midline Neck exam: ABSENT: carotid bruit, JVD, lymphadenopathy, thyromegaly Respiratory exam: PRESENT: clear to auscultation abimbola. ABSENT: rales, rhonchi, wheezes Cardiovascular exam: PRESENT: RRR. ABSENT: diastolic murmur, rubs, systolic murmur Pulses: PRESENT: normal dorsalis pedis pul GI/Abdominal exam: PRESENT: normal bowel sounds, soft. ABSENT: distended, guarding, mass, organolmegaly, rebound, tenderness Rectal exam: PRESENT: deferred Neurological exam: PRESENT: alert, awake, oriented to person, oriented to place, oriented to time, oriented to situation, CN II-XII grossly intact. ABSENT: motor sensory deficit Results Laboratory Results: 07/28/18 20:55 07/28/18 20:55 07/28/18 07/28/18 07/28/18 20:55 20:55 20:55 WBC 8.6 RBC 4.85 Hgb 15.0 Hct 44.5 MCV 92 MCH 30.9 MCHC 33.7 RDW 14.8 H Plt Count 192 Seg Neutrophils % 49.5 Lymphocytes % 37.5 Monocytes % 10.8 Eosinophils % 1.5 Basophils % 0.7 Absolute Neutrophils 4.3 Absolute Lymphocytes 3.2 Absolute Monocytes 0.9 Absolute Eosinophils 0.1 Absolute Basophils 0.1 VBG pH VBG pCO2 VBG HCO3 VBG Base Excess Sodium 140.4 Potassium 4.2 Chloride 99 Carbon Dioxide 34 H Anion Gap 7 BUN 14 Creatinine 1.27 H Est GFR ( Amer) > 60 Est GFR (Non-Af Amer) 57 L Glucose 96 Lactic Acid 1.0 Calcium 9.7 Total Bilirubin 0.3 AST 42 ALT 15 L Alkaline Phosphatase 81 Total Protein 7.7 Albumin 4.4 Urine Color Urine Appearance Urine pH Ur Specific [place] Urine Protein Urine Glucose (UA) Urine Ketones Urine Blood Urine Nitrite Ur Leukocyte Esterase Urine WBC (Auto) Urine RBC (Auto) 07/28/18 07/28/18 20:55 21:20 WBC RBC Hgb Hct MCV MCH MCHC RDW Plt Count Seg Neutrophils % Lymphocytes % Monocytes % Eosinophils % Basophils % Absolute Neutrophils Absolute Lymphocytes Absolute Monocytes Absolute Eosinophils Absolute Basophils VBG pH 7.28 L VBG pCO2 77.7 H* VBG HCO3 35.4 H VBG Base Excess 5.5 Sodium Potassium Chloride Carbon Dioxide Anion Gap BUN Creatinine Est GFR ( Amer) Est GFR (Non-Af Amer) Glucose Lactic Acid Calcium Total Bilirubin AST ALT Alkaline Phosphatase Total Protein Albumin Urine Color YELLOW Urine Appearance CLOUDY Urine pH 7.0 Ur Specific [place] 1.012 Urine Protein NEGATIVE Urine Glucose (UA) NEGATIVE Urine Ketones NEGATIVE Urine Blood SMALL H Urine Nitrite POSITIVE H Ur Leukocyte Esterase LARGE H Urine WBC (Auto) >182 Urine RBC (Auto) 17 07/28/18 20:55 NT-Pro-B Natriuret Pep 16 Impressions: Chest X-Ray 07/28/18 20:43 IMPRESSION: No evidence of acute cardiopulmonary disease. Chest/Abdomen CTA 07/28/18 23:35 IMPRESSION: No pulmonary embolus although the segmental branches are not well visualized due to respiratory motion artifact.. Assessment & Plan - Diagnosis (1) Acute and chronic respiratory failure with hypercapnia Is this a current diagnosis for this admission?: Yes Plan: Secondary to COPD exacerbation. Currently saturating well on 3 lpm via [place]. (2) COPD with exacerbation Is this a current diagnosis for this admission?: Yes Plan: Continue solumedrol, Rocephin and azithromycin. Continue scheduled breathing treatments. (3) UTI (urinary tract infection) Is this a current diagnosis for this admission?: Yes Plan: On rocephin. (4) Acute kidney injury Is this a current diagnosis for this admission?: Yes Plan: Creatinine is elevated at 1.2 from a baseline of 0.8. Start normal saline at 100 cc/hr. (5) Alcohol use disorder Is this a current diagnosis for this admission?: Yes
[2018-07-29] MEDS: NORMAL SALINE 1000 ML 1,000 ML IV PRN (17:44)
[2018-07-29] MEDS: MONTELUKAST SODIUM 10 MG TABLET PO SCH (17:44)
[2018-07-29] MEDS ORDERED: LORAZEPAM INJ 2 MG/1 ML VIAL IV PRN (17:46)
--- NOTE | 2018-07-29 18:44 | RADIOLOGY REPORT (SQ) ---
EXAM DESCRIPTION: CT ABD/PELVIS NO ORAL OR IV COMPLETED DATE/TIME: 07/29/2018 3:07 pm REASON FOR STUDY: persistent right flank pain COMPARISON: Same day CT chest and earlier TECHNIQUE: CT scan of the abdomen and pelvis performed without intravenous or oral contrast. Images reviewed with lung, soft tissue, and bone windows. Reconstructed coronal and sagittal MPR images revi ewed. All images stored on PACS. All CT scanners at this facility use dose modulation, iterative reconstruction, and/or weight based d osing when appropriate to reduce radiation dose to as low as reasonably achievable (ALARA). [facility]: Dose Right [facility]: CareDose [facility]: Dose Right [facility]: Teradose 4D [facility]: [employer] RADIATION DOSE: CT Rad equipment meets quality standard of care and radiation dose reduction techniq ues were employed. CTDIvol: 13.6 mGy. DLP: 780 mGy-cm.mGy. LIMITATIONS: None. FINDINGS: LOWER CHEST: See separate report of the CT of the chest. NON-CONTRASTED LIVER, SPLEEN, ADRENALS: Evaluation limited by lack of IV contrast. No identified sign ificant masses. PANCREAS: No masses. No peripancreatic inflammatory changes. GALLBLADDER: Surgically absent. RIGHT KIDNEY AND URETER: 2 subcentimeter hyperattenuating lesions within the anterior superior and an terior inferior right renal cortex, likely representing hemorrhagic cysts. No additional masses of t he right kidney. Assessment limited by lack of IV contrast. No significant calcifications. Mild ri ght hydronephrosis. No nephrolithiasis. No obstructing lesion LEFT KIDNEY AND URETER: No suspicious masses. Assessment limited by lack of IV contrast. No signifi cant calcifications. No hydronephrosis. AORTA AND RETROPERITONEUM: No aneurysm. Calcified plaque of the abdominal aorta are No retroperitone al masses or adenopathy. BOWEL AND PERITONEAL CAVITY: Mild thickening of the glynn of the distal esophagus. No dilated loops of bowel. Scattered diverticula colon. No inflammatory changes to suggest diverticulitis. No intra peritoneal free fluid or free air. APPENDIX: Not visualized. PELVIS, BLADDER, AND ABDOMINAL WALL:Urinary bladder is generously distended. Prostate is enlarged an d heterogenous with prostatic calcifications. Small fat containing umbilical hernia. BONES: No significant findings. OTHER: No other significant finding. IMPRESSION: 1. Mild right hydronephrosis. No nephrolithiasis or obstructing lesion. Findings may be physiologic as the urinary bladder is generously distended. 2. Prostatomegaly. 3. Mild circumferential thickening of the glynn of the distal esophagus. Correlate with patient's en doscopy history. 4. Diverticulosis without evidence of diverticulitis. COMMENT: Quality ID # [id number]: Final reports with documentation of one or more dose reduction techniques (e.g., Automated exposure control, adjustment of the mA and/or kV according to patient size, use of iterative reconstruction technique) TECHNICAL DOCUMENTATION: JOB ID: [id number] [employer]- All Rights Reserved Reading location - IP/workstation name: [email or web address]
[2018-07-29] MEDS: AZITHROMYCIN 500 MG in DEXTROSE 5%-WATER 250 ML IV SCH (22:19)
[2018-07-30] MEDS: IPRATROPIUM/ALBUTEROL 0.5-2.5 MG/3 ML AMPUL NEB SCH ×4 (01:10→20:40)
[2018-07-30] MEDS: NORMAL SALINE 1000 ML 1,000 ML IV PRN (05:06)
[2018-07-30] MEDS: HEPARIN SOD (PORCINE) 5,000 UNIT/ML 1 ML SYRINGE SUBCUT SCH ×3 (05:06→23:20)
[2018-07-30 07:29] LABS: ABSOLUTE LYMPHOCYTES (AUTO) 1.9 10^3/uL (0.5-4.7); ABSOLUTE MONOCYTES (AUTO) 0.4 10^3/uL (0.1-1.4); ABSOLUTE NEUT (AUTO) 10.9 10^3/uL (1.7-8.2); BASOPHILS % (AUTO) 0.1 % (0-2); HEMATOCRIT 42.8 % (37.9-51.0); HEMOGLOBIN 14.4 g/dL (13.5-17.0); LYMPHOCYTES % (AUTO) 14.5 % (13-45); MEAN CORPUSCULAR HEMOGLOBIN 30.5 pg (27.0-33.4); MEAN CORPUSCULAR HGB CONC 33.5 g/dL (32.0-36.0); MEAN CORPUSCULAR VOLUME 91 fl (80-97); MONOCYTES % (AUTO) 2.7 % (3-13); PLATELET COUNT 200 10^3/uL (150-450); RED BLOOD COUNT 4.71 10^6/uL (4.35-5.55); RED CELL DISTRIBUTION WIDTH 14.7 % (11.5-14.0); SEGMENTED NEUTROPHILS % (AUTO) 82.7 % (42-78); TOTAL CELLS COUNTED % (AUTO) 100 %; WHITE BLOOD COUNT 13.1 10^3/uL (4.0-10.5)
[2018-07-30 07:45] LABS: ANION GAP 8 (5-19); BLOOD UREA NITROGEN 16 mg/dL (7-20); CALCIUM 9.8 mg/dL (8.4-10.2); CARBON DIOXIDE 30 mmol/L (22-30); CHLORIDE 104 mmol/L (98-107); GLUCOSE 117 mg/dL (75-110); POTASSIUM 4.6 mmol/L (3.6-5.0); SODIUM 142.3 mmol/L (137-145)
[2018-07-30] MEDS: FLUTICASONE/VILANTEROL 200-25 MCG/DOSE IH SCH (10:16)
[2018-07-30] MEDS: CEFTRIAXONE 1 GM/D5W RTU 1 GM/50 ML RTUPB IV SCH (10:16)
[2018-07-30] MEDS: FLUTICASONE NASAL SPRAY 50 MCG/SPRY 120 SPRAY/16 GM NASL SCH (10:19)
[2018-07-30] MEDS: METHYLPREDNISOLONE INJ 40 MG/1 ML SDV IV SCH ×2 (10:20→23:20)
[2018-07-30] MEDS: FOLIC ACID 1 MG TABLET PO SCH (10:21)
[2018-07-30] MEDS: ASPIRIN 81 MG TABLET, ENT COATED PO SCH (10:22)
[2018-07-30] MEDS: GUAIFENESIN 600 MG TABLET.SA PO SCH (10:22)
[2018-07-30] MEDS: FUROSEMIDE 40 MG TABLET PO SCH (10:22)
[2018-07-30] MEDS: SERTRALINE HCL 50 MG TABLET PO SCH (10:22)
[2018-07-30] MEDS: PANTOPRAZOLE SODIUM 40 MG TABLET.DR PO SCH (10:26)
[2018-07-30] MEDS: DOCUSATE SODIUM 100 MG CAPSULE PO SCH (10:26)
[2018-07-30] MEDS ORDERED: LORAZEPAM INJ 2 MG/1 ML VIAL IV ONE (11:30)
--- NOTE | 2018-07-30 14:30 | PDOC PROGRESS REPORT ---
Subjective Progress Note for:: 07/30/18 Subjective:: This is a 67 year old male with a past medical history of COPD on 3 lpm at home and persistent tobacco dependence. Patient is also an alcohol drinker. He presents with right sided abdominal pain and shortness of breath. He is found to have tachycardia prompting CTA chest which is negative but also a urinalysis with pyuria. He was admitted for COPD exacerbation and UTI. He says his breathing has improved today. He does complain of right flank pain. Denies chest pain. 07/30/18: No acute event overnight. He says his shortness of breath has continued to improve. His abdominal pain has also resolved. He does appear to be more jittery and anxious today. Reason For Visit: ACUTE BRONCHITIS,COPD EXACERBATION Physical Exam Vital Signs: Temp Pulse Resp BP Pulse Ox 97.9 F 86 20 155/90 H 96 07/30/18 11:08 07/30/18 11:08 07/30/18 11:08 07/30/18 11:08 07/30/18 11:08 Intake & Output 07/29/18 07/30/18 07/31/18 06:59 06:59 06:59 Intake Total 1300 2787 733 Output Total 3100 1425 Balance 1300 313 692 Weight 203 lb 4.259 oz 201 lb 8.04 oz General appearance: PRESENT: no acute distress, well-developed, well-nourished Head exam: PRESENT: atraumatic, normocephalic Eye exam: PRESENT: conjunctiva pink, EOMI, PERRLA. ABSENT: scleral icterus Ear exam: PRESENT: normal external ear exam Mouth exam: PRESENT: moist, tongue midline Neck exam: ABSENT: carotid bruit, JVD, lymphadenopathy, thyromegaly Respiratory exam: PRESENT: rhonchi, wheezes - mild wheezes. ABSENT: rales Cardiovascular exam: PRESENT: RRR. ABSENT: diastolic murmur, rubs, systolic murmur Pulses: PRESENT: normal dorsalis pedis pul GI/Abdominal exam: PRESENT: normal bowel sounds, soft. ABSENT: distended, guard ing, mass, organolmegaly, rebound, tenderness Rectal exam: PRESENT: deferred Results Laboratory Results: 07/30/18 07:08 07/30/18 07:08 07/30/18 07/30/18 07:08 07:08 WBC 13.1 H RBC 4.71 Hgb 14.4 Hct 42.8 MCV 91 MCH 30.5 MCHC 33.5 RDW 14.7 H Plt Count 200 Seg Neutrophils % 82.7 H Lymphocytes % 14.5 Monocytes % 2.7 L Eosinophils % 0.0 Basophils % 0.1 Absolute Neutrophils 10.9 H Absolute Lymphocytes 1.9 Absolute Monocytes 0.4 Absolute Eosinophils 0.0 Absolute Basophils 0.0 Sodium 142.3 Potassium 4.6 Chloride 104 Carbon Dioxide 30 Anion Gap 8 BUN 16 Creatinine 0.84 Est GFR ( Amer) > 60 Est GFR (Non-Af Amer) > 60 Glucose 117 H Calcium 9.8 07/28/18 21:20 Clean Catch Midstream Urine Culture - Final Mrsa (Meth Resis Staph Aureus) 07/28/18 20:55 NT-Pro-B Natriuret Pep 16 Impressions: Chest X-Ray 07/28/18 20:43 IMPRESSION: No evidence of acute cardiopulmonary disease. Chest/Abdomen CTA 07/28/18 23:35 IMPRESSION: No pulmonary embolus although the segmental branches are not well visualized due to respiratory motion artifact.. Abdomen/Pelvis CT 07/29/18 14:04 IMPRESSION: 1. Mild right hydronephrosis. No nephrolithiasis or obstructing lesion. Findings may be physiologic as the urinary bladder is generously distended. 2. Prostatomegaly. 3. Mild circumferential thickening of the glynn of the distal esophagus. Correlate with patient's endoscopy history. 4. Diverticulosis without evidence of diverticulitis. Assessment & Plan - Diagnosis (1) Acute and chronic respiratory failure with hypercapnia Is this a current diagnosis for this admission?: Yes Plan: Secondary to COPD exacerbation. Currently saturating well on 3 lpm via [place]. 07/30: Improving. Continue solumedrol and breathing treatments. (2) COPD with exacerbation Is this a current diagnosis for this admission?: Yes (3) Alcohol withdrawal Is this a current diagnosis for this admission?: Yes Plan: Start banana bag. Increase ativan to 3 mg q4h prn. (4) UTI (urinary tract infection) Is this a current diagnosis for this admission?: Yes Plan: On rocephin. Urine culture was called to be positive for MRSA. He does not have an indwelling Alatorre and MRSA is not a typical uropathogen and likely represents colonization vs contamination in this context. He denies dysuria or hematuria. He does say he had frequency which only started overnight. (5) Acute kidney injury Is this a current diagnosis for this admission?: Yes Plan: Creatinine is elevated at 1.2 from a baseline of 0.8. Start normal saline at 100 cc/hr. 07/30: Resolved. Crea now at baseline. DC normla saline as patient will also be getting IV banana bag. (6) Alcohol use disorder Is this a current diagnosis for this admission?: Yes Plan: Counseled on alcohol cessation. (7) Renal cyst, w[place], hemorrhage Is this a current diagnosis for this admission?: Yes Plan: As noted on CT. Hemoglobin stable. His right flank pain has resolved. - Time Time Spent with patient: 25-34 minutes
[2018-07-30] MEDS: NORMAL SALINE 1000 ML 1,000 ML with POTASSIUM CHLORIDE 20 MEQ, MAGNESIUM SULFATE 8 MEQ,... IV SCH ×4 (18:26)
[2018-07-30] MEDS: TAMSULOSIN HCL 0.4 MG CAP.SR.24H PO SCH (18:28)
[2018-07-30] MEDS: MONTELUKAST SODIUM 10 MG TABLET PO SCH (18:28)
[2018-07-30] MEDS: THIAMINE HCL 100 MG TABLET PO SCH (18:28)
[2018-07-30] MEDS: LORAZEPAM INJ 2 MG/1 ML VIAL IV PRN (18:38)
[2018-07-30] MEDS ORDERED: HALOPERIDOL LACTATE INJ 5 MG/1 ML VIAL IV ONE (20:39)
[2018-07-30] MEDS ORDERED: HALOPERIDOL LACTATE INJ 5 MG/1 ML VIAL ONE (20:42)
[2018-07-30] MEDS: AZITHROMYCIN 500 MG in DEXTROSE 5%-WATER 250 ML IV SCH (23:20)
[2018-07-31] MEDS: IPRATROPIUM/ALBUTEROL 0.5-2.5 MG/3 ML AMPUL NEB SCH ×4 (02:20→19:40)
[2018-07-31] MEDS: PANTOPRAZOLE SODIUM 40 MG TABLET.DR PO SCH (05:40)
[2018-07-31] MEDS: HEPARIN SOD (PORCINE) 5,000 UNIT/ML 1 ML SYRINGE SUBCUT SCH ×3 (05:41→22:14)
[2018-07-31] MEDS: FUROSEMIDE 40 MG TABLET PO SCH (10:32)
[2018-07-31] MEDS: DOCUSATE SODIUM 100 MG CAPSULE PO SCH (10:32)
[2018-07-31] MEDS: SERTRALINE HCL 50 MG TABLET PO SCH (10:32)
[2018-07-31] MEDS: ASPIRIN 81 MG TABLET, ENT COATED PO SCH (10:32)
[2018-07-31] MEDS: METHYLPREDNISOLONE INJ 40 MG/1 ML SDV IV SCH (10:32)
[2018-07-31] MEDS: GUAIFENESIN 600 MG TABLET.SA PO SCH (10:32)
[2018-07-31] MEDS: FLUTICASONE/VILANTEROL 200-25 MCG/DOSE IH SCH (10:33)
[2018-07-31] MEDS: FLUTICASONE NASAL SPRAY 50 MCG/SPRY 120 SPRAY/16 GM NASL SCH (10:33)
[2018-07-31] MEDS: CEFTRIAXONE 1 GM/D5W RTU 1 GM/50 ML RTUPB IV SCH (10:34)
[2018-07-31] MEDS: LORAZEPAM INJ 2 MG/1 ML VIAL IV PRN ×2 (11:45→22:14)
--- NOTE | 2018-07-31 13:41 | PDOC PROGRESS REPORT ---
Subjective Progress Note for:: 07/31/18 Subjective:: This is a 67 year old male with a past medical history of COPD on 3 lpm at home and persistent tobacco dependence. Patient is also an alcohol drinker. He presents with right sided abdominal pain and shortness of breath. He is found to have tachycardia prompting CTA chest which is negative but also a urinalysis with pyuria. He was admitted for COPD exacerbation and UTI. He says his breathing has improved today. He does complain of right flank pain. Denies chest pain. 07/30: He says his shortness of breath has continued to improve. His abdominal pain has also resolved. He does appear to be more jittery and anxious today. He is showing signs of alcohol withdrawal. 07/31: No acute event overnight. Patient had agitation/restlessness last night requiring 3 mg of Ativan and 10 mg of Haldol. This morning, he is oriented x 3. He says his breathing continues to improve but not at baseline yet. Reason For Visit: ACUTE BRONCHITIS,COPD EXACERBATION Physical Exam Vital Signs: Temp Pulse Resp BP Pulse Ox 97.8 F 79 17 134/76 H 98 07/31/18 11:51 07/31/18 11:51 07/31/18 11:51 07/31/18 11:51 07/31/18 11:51 Intake & Output 07/30/18 07/31/18 08/01/18 06:59 06:59 06:59 Intake Total 2787 2904 704 Output Total 3100 2225 Balance -313 679 704 Weight 201 lb 8.04 oz General appearance: PRESENT: no acute distress, well-developed, well-nourished Head exam: PRESENT: atraumatic, normocephalic Eye exam: PRESENT: conjunctiva pink, EOMI, PERRLA. ABSENT: scleral icterus Ear exam: PRESENT: normal external ear exam Mouth exam: PRESENT: moist, tongue midline Neck exam: ABSENT: carotid bruit, JVD, lymphadenopathy, thyromegaly Respiratory exam: PRESENT: rhonchi, wheezes - minimal. ABSENT: rales Cardiovascular exam: PRESENT: RRR. ABSENT: diastolic murmur, rubs, systolic murmur Pulses: PRESENT: normal dorsalis pedis pul GI/Abdominal exam: PRESENT: normal bowel sounds, soft. ABSENT: distended, guarding, mass, organolmegaly, rebound, tenderness Rectal exam: PRESENT: deferred Neurological exam: PRESENT: alert, awake, oriented to person, oriented to place, oriented to time, oriented to situation, CN II-XII grossly intact. ABSENT: motor sensory deficit Results Laboratory Results: 07/30/18 07:08 07/30/18 07:08 07/28/18 21:20 Clean Catch Midstream Urine Culture - Final Mrsa (Meth Resis Staph Aureus) 07/28/18 20:55 NT-Pro-B Natriuret Pep 16 Impressions: Chest X-Ray 07/28/18 20:43 IMPRESSION: No evidence of acute cardiopulmonary disease. Chest/Abdomen CTA 07/28/18 23:35 IMPRESSION: No pulmonary embolus although the segmental branches are not well visualized due to respiratory motion artifact.. Abdomen/Pelvis CT 07/29/18 14:04 IMPRESSION: 1. Mild right hydronephrosis. No nephrolithiasis or obstructing lesion. Findings may be physiologic as the urinary bladder is generously distended. 2. Prostatomegaly. 3. Mild circumferential thickening of the glynn of the distal esophagus. Correlate with patient's endoscopy history. 4. Diverticulosis without evidence of diverticulitis. Assessment & Plan - Diagnosis (1) Acute and chronic respiratory failure with hypercapnia Is this a current diagnosis for this admission?: Yes Plan: Secondary to COPD exacerbation. Currently saturating well on 3 lpm via NC. 07/30: Improving. Continue solumedrol and breathing treatments. 07/31: Decrease solumedrol from 40 mg q12 to 40 mg daily. Continue breathing treatments. (2) COPD with exacerbation Is this a current diagnosis for this admission?: Yes Plan: Continue solumedrol, Rocephin and azithromycin. Continue scheduled breathing treatments. 07/31: Decrease solumedrol from 40 mg q12 to 40 mg daily. Continue breathing treatments. (3) Alcohol withdrawal Is this a current diagnosis for this admission?: Yes Plan: Start banana bag. Increase ativan to 3 mg q4h prn. 07/31: Patient did require Ativan and Haldol last night due to agitation. Continue Ativan prn and banana bag. (4) UTI (urinary tract infection) Is this a current diagnosis for this admission?: Yes Plan: 07/30: On rocephin. Urine culture was called to be positive for MRSA. He does not have an indwelling Alatorre and MRSA is not a typical uropathogen and likely represents colonization vs contamination in this context. He denies dysuria or hematuria. He does say he had frequency which only started overnight. (5) Acute kidney injury Is this a current diagnosis for this admission?: Yes Plan: Creatinine is elevated at 1.2 from a baseline of 0.8. Start normal saline at 100 cc/hr. 07/30: Resolved. Crea now at baseline. DC normal saline as patient will also be getting IV banana bag. (6) Alcohol use disorder Is this a current diagnosis for this admission?: Yes Plan: Counseled on alcohol cessation. (7) Renal cyst, [place], hemorrhage Is this a current diagnosis for this admission?: Yes Plan: As noted on CT. Hemoglobin stable. His right flank pain has resolved. - Time Time Spent with patient: 25-34 minutes
--- NOTE | 2018-07-31 16:37 | Progress Note ---
Provider Note Provider Note: ID Consult Note Asked to review patient's chart by Dr Mccord. Pt not seen or examined. Pt is a 67 year old man admitted on 07/29/18. PMH/PSH includes COPD, 0chronic hypoxic respiratory failure on home oxygen, tobacco dependence. He presented with R sided abdominal pain and SOB. He has a productive cough. He did not disclose any urinary symptoms. He was afebrile. On exam he was noted to have poor air movement on lung exam. He was referred for admission due to increased WOB with diffuse expiratory wheezing despite multiple breathing treatments and steroids, although he was able to be weaned down to his usual 3 L NC. On admission, he had accessory muscle use and crackles, no murmur, diffuse abdominal tenderness, tachycardia. He does not have an indwelling Alatorre catheter. He was suspected of having an acute COPD exacerbation, possible UTI and also constipation. Labs included initial creatinine 1.3, hypercapnea on blood gas, large leukocyte esterase with >182 WBC/hpf on U/A. Blood cultures have been negative x 48h. UCx grew >100k cfu MRSA Imaging included CXR that showed no acute process and CTA chest that showed no PE and no focal lung consolidation. CT abd/pelvis without contrast showed mild R hydronephrosis, no obstruction lesions, and 2 subcentimeter hyperattenuating lesions in the R renal cortex suspected to represent hemorrhagic cysts. Impression/Recommendations methicillin resistant Staphylococcus aureus (MRSA) bacteriuria - If pt lacks typical urinary tract symptoms (increased urination in hospital may reflect IV fluid administration; is there also suprapubic tenderness? urgency? dysuria?), the urine culture growth would be considered asymptomatic bacteriuria. In absence of an indwelling urinary catheter or recent instrumentation, finding Staph aureus in the urine is potentially concerning for bacteremia that has seeded the urinary tract. - However, his blood cultures are negative, he has no murmur, and he has had no fever. - How far to go in workup of asymptomatic Staph aureus bacteriuria with negative blood cultures (should such patients undergo a TTE and, if poor quality, then a WINSOME?) is not clearly worked out in the literature. At the present time, there is not compelling information to indicate such evaluation is necessary. - Would continue management for COPD AE. - Keep a low threshold to embark on TTE and repeat blood cultures if he develops any signs/symptoms consistent with a metastatic or occult staphylococcal infection, such as fever, new murmur, or worsened back pain. If he develops compatible findings, further evaluation for Staph aureus bacteremia or endocarditis would need to be undertaken with repeat blood cultures and WINSOME and MRI if there is back pain. Santiago Coelho MD [facility] Infectious Diseases pager [phone]
[2018-07-31] MEDS: MONTELUKAST SODIUM 10 MG TABLET PO SCH (18:08)
[2018-07-31] MEDS: TAMSULOSIN HCL 0.4 MG CAP.SR.24H PO SCH (18:08)
[2018-07-31] MEDS: NORMAL SALINE 1000 ML 1,000 ML with POTASSIUM CHLORIDE 20 MEQ, MAGNESIUM SULFATE 8 MEQ,... IV SCH ×4 (18:08)
[2018-07-31] MEDS: THIAMINE HCL 100 MG TABLET PO SCH (18:08)
[2018-07-31] MEDS: AZITHROMYCIN 500 MG in DEXTROSE 5%-WATER 250 ML IV SCH (22:14)
[2018-08-01] MEDS: IPRATROPIUM/ALBUTEROL 0.5-2.5 MG/3 ML AMPUL NEB SCH ×4 (02:20→19:42)
[2018-08-01] MEDS: HEPARIN SOD (PORCINE) 5,000 UNIT/ML 1 ML SYRINGE SUBCUT SCH ×3 (05:51→22:36)
[2018-08-01] MEDS: PANTOPRAZOLE SODIUM 40 MG TABLET.DR PO SCH (05:51)
[2018-08-01] MEDS: LORAZEPAM INJ 2 MG/1 ML VIAL IV PRN ×3 (08:25→20:01)
[2018-08-01] MEDS: ASPIRIN 81 MG TABLET, ENT COATED PO SCH (10:00)
[2018-08-01] MEDS: GUAIFENESIN 600 MG TABLET.SA PO SCH (10:00)
[2018-08-01] MEDS: DOCUSATE SODIUM 100 MG CAPSULE PO SCH (10:00)
[2018-08-01] MEDS: FUROSEMIDE 40 MG TABLET PO SCH (10:00)
[2018-08-01] MEDS: SERTRALINE HCL 50 MG TABLET PO SCH (10:00)
[2018-08-01] MEDS: FLUTICASONE/VILANTEROL 200-25 MCG/DOSE IH SCH (10:01)
[2018-08-01] MEDS: FLUTICASONE NASAL SPRAY 50 MCG/SPRY 120 SPRAY/16 GM NASL SCH (10:01)
[2018-08-01] MEDS: CEFTRIAXONE 1 GM/D5W RTU 1 GM/50 ML RTUPB IV SCH (10:02)
[2018-08-01] MEDS: METHYLPREDNISOLONE INJ 40 MG/1 ML SDV IV SCH (10:05)
[2018-08-01] MEDS: THIAMINE HCL 100 MG TABLET PO SCH (17:33)
[2018-08-01] MEDS: TAMSULOSIN HCL 0.4 MG CAP.SR.24H PO SCH (17:33)
[2018-08-01] MEDS: MONTELUKAST SODIUM 10 MG TABLET PO SCH (17:33)
[2018-08-01] MEDS: NORMAL SALINE 1000 ML 1,000 ML with POTASSIUM CHLORIDE 20 MEQ, MAGNESIUM SULFATE 8 MEQ,... IV SCH ×4 (20:01)
--- NOTE | 2018-08-01 22:18 | PDOC PROGRESS REPORT ---
Subjective Progress Note for:: 08/01/18 Subjective:: This is a 67 year old male with a past medical history of COPD on 3 lpm at home and persistent tobacco dependence. Patient is also an alcohol drinker. He presents with right sided abdominal pain and shortness of breath. He is found to have tachycardia prompting CTA chest which is negative but also a urinalysis with pyuria. He was admitted for COPD exacerbation and UTI. The patient was seen this morning, he is resting comfortably in bed on nasal cannula. The patient reports urinary frequency and urgency. No other complaints at this time. Nursing denies any concerns. Reason For Visit: ACUTE BRONCHITIS,COPD EXACERBATION Physical Exam Vital Signs: Temp Pulse Resp BP Pulse Ox 97.8 F 78 20 151/88 H 96 08/01/18 21:50 08/01/18 21:50 08/01/18 21:50 08/01/18 21:50 08/01/18 21:50 Intake & Output 07/31/18 08/01/18 08/02/18 06:59 06:59 06:59 Intake Total 2904 704 1322 Output Total 2225 Balance 260 239 4278 General appearance: PRESENT: disheveled Eye exam: PRESENT: conjunctiva pink, PERRLA Mouth exam: PRESENT: moist, tongue midline Teeth exam: PRESENT: poor dentation Neck exam: PRESENT: full ROM Respiratory exam: PRESENT: clear to auscultation [place], symmetrical, unlabored Cardiovascular exam: PRESENT: RRR Pulses: PRESENT: normal radial pulses GI/Abdominal exam: PRESENT: soft. ABSENT: distended, tenderness Rectal exam: PRESENT: deferred Extremities exam: PRESENT: full ROM. ABSENT: pedal edema Musculoskeletal exam: PRESENT: ambulatory, full ROM Neurological exam: PRESENT: alert, awake, oriented to person, oriented to place, oriented to time, oriented to situation Psychiatric exam: PRESENT: appropriate affect Skin exam: PRESENT: dry, intact, normal color Results Laboratory Results: 07/30/18 07:08 07/30/18 07:08 07/28/18 20:55 NT-Pro-B Natriuret Pep 16 Impressions: Chest X-Ray 07/28/18 20:43 IMPRESSION: No evidence of acute cardiopulmonary disease. Chest/Abdomen CTA 07/28/18 23:35 IMPRESSION: No pulmonary embolus although the segmental branches are not well visualized due to respiratory motion artifact.. Abdomen/Pelvis CT 07/29/18 14:04 IMPRESSION: 1. Mild right hydronephrosis. No nephrolithiasis or obstructing lesion. Findings may be physiologic as the urinary bladder is generously distended. 2. Prostatomegaly. 3. Mild circumferential thickening of the glynn of the distal esophagus. Correlate with patient's endoscopy history. 4. Diverticulosis without evidence of diverticulitis. Status: Imported from PACS Assessment and Plan - Diagnosis (1) Acute and chronic respiratory failure with hypercapnia Is this a current diagnosis for this admission?: Yes Plan: Secondary to COPD exacerbation Currently on home dose of 3LNC (2) COPD with exacerbation Is this a current diagnosis for this admission?: Yes Plan: Resolved Continue steroids, nrbulizers, empiric abx (3) Alcohol withdrawal Is this a current diagnosis for this admission?: Yes Plan: PRN Ativan Patient seems alert and oriented, but requiring sedation today (4) Acute kidney injury Is this a current diagnosis for this admission?: Yes (5) Renal cyst, [place], hemorrhage Is this a current diagnosis for this admission?: Yes Plan: No treatment at this time Patient advised to seek medical attention for acute back/flank pain (6) UTI (urinary tract infection) Is this a current diagnosis for this admission?: Yes Plan: urine cultre (+) MRSA On rocephin. Patient does not have an indwelling Alatorre and MRSA is not a typical uropathogen and likely represents colonization vs contamination in this context. Patient endorses urinary frequency and urgency Per ID, Dr. Coelho recommends Bactrim 1 DS PO BID for two weeks. - Time Time Spent with patient: 15-24 minutes Medications reviewed and adjusted accordingly: Yes Anticipated discharge: Home Within: within 24 hours - Inpatient Certification Based on my medical assessment, after consideration of the patient's comorbidities, presenting symptoms, or acuity I expect that the services needed warrant INPATIENT care.: Yes I certify that my determination is in accordance with my understanding of Medicare's requirements for reasonable and necessary INPATIENT services [42 CFR 412.3e].: Yes Medical Necessity: Need for IV Antibiotics
[2018-08-01] MEDS: AZITHROMYCIN 500 MG in DEXTROSE 5%-WATER 250 ML IV SCH (22:36)
[2018-08-02] MEDS: IPRATROPIUM/ALBUTEROL 0.5-2.5 MG/3 ML AMPUL NEB SCH ×3 (01:55→13:14)
[2018-08-02] MEDS: PANTOPRAZOLE SODIUM 40 MG TABLET.DR PO SCH (05:46)
[2018-08-02] MEDS: HEPARIN SOD (PORCINE) 5,000 UNIT/ML 1 ML SYRINGE SUBCUT SCH (05:46)
[2018-08-02] MEDS: LORAZEPAM INJ 2 MG/1 ML VIAL IV PRN ×2 (05:54→12:15)
[2018-08-02 06:07] LABS: HEMATOCRIT 42.4 % (37.9-51.0); HEMOGLOBIN 14.4 g/dL (13.5-17.0); MEAN CORPUSCULAR HEMOGLOBIN 30.9 pg (27.0-33.4); MEAN CORPUSCULAR VOLUME 91 fl (80-97); PLATELET COUNT 187 10^3/uL (150-450); RED BLOOD COUNT 4.67 10^6/uL (4.35-5.55); RED CELL DISTRIBUTION WIDTH 14.9 % (11.5-14.0); WHITE BLOOD COUNT 9.3 10^3/uL (4.0-10.5)
[2018-08-02 06:28] LABS: ALANINE AMINOTRANSFERASE 58 U/L (21-72); ALBUMIN 3.6 g/dL (3.5-5.0); ALKALINE PHOSPHATASE 69 U/L (38-126); ANION GAP 7 (5-19); ASPARTATE AMINO TRANSFERASE 52 U/L (17-59); BILIRUBIN,DIRECT 0.3 mg/dL (0.0-0.4); BILIRUBIN,TOTAL 0.4 mg/dL (0.2-1.3); BLOOD UREA NITROGEN 25 mg/dL (7-20); CALCIUM 9.4 mg/dL (8.4-10.2); CARBON DIOXIDE 31 mmol/L (22-30); CHLORIDE 101 mmol/L (98-107); GLUCOSE 84 mg/dL (75-110); POTASSIUM 4.4 mmol/L (3.6-5.0); SODIUM 139.1 mmol/L (137-145); TOTAL PROTEIN 6.5 g/dL (6.3-8.2)
[2018-08-02] MEDS: SERTRALINE HCL 50 MG TABLET PO SCH (10:30)
[2018-08-02] MEDS: ASPIRIN 81 MG TABLET, ENT COATED PO SCH (10:30)
[2018-08-02] MEDS: FLUTICASONE/VILANTEROL 200-25 MCG/DOSE IH SCH (10:30)
[2018-08-02] MEDS: METHYLPREDNISOLONE INJ 40 MG/1 ML SDV IV SCH (10:30)
[2018-08-02] MEDS: CEFTRIAXONE 1 GM/D5W RTU 1 GM/50 ML RTUPB IV SCH (10:30)
[2018-08-02] MEDS: DOCUSATE SODIUM 100 MG CAPSULE PO SCH (10:30)
[2018-08-02] MEDS: GUAIFENESIN 600 MG TABLET.SA PO SCH (10:30)
[2018-08-02] MEDS: FUROSEMIDE 40 MG TABLET PO SCH (10:30)
[2018-08-02] MEDS: FLUTICASONE NASAL SPRAY 50 MCG/SPRY 120 SPRAY/16 GM NASL SCH (10:30)
[2018-08-02] MEDS ORDERED: SULFAMETHOXAZOLE/TRIMETHOPRIM 800-160 MG TABLET PO SCH ×2 (13:00→14:00)
[2018-08-02 13:43] VITALS: BP 151/88
== END 2018-08-02 14:07 | disposition home or self-care (01) | DRG 189 ==
LOC: ER 18:34 → EH 07-29 02:15 → 4S 07-29 03:17 → 4N 07-31 03:43
PROVIDERS: ADMIT Internal Medicine; ATTEND Internal Medicine
DX: J96.22 Acute and chronic respiratory failure with hypercapnia (principal); E87.2 Acidosis; J44.1 Chronic obstructive pulmonary disease with (acute) exacerbation; N39.0 Urinary tract infection, site not specified; N17.9 Acute kidney failure, unspecified; F10.239 Alcohol dependence with withdrawal, unspecified; E78.00 Pure hypercholesterolemia, unspecified; N28.1 Cyst of kidney, acquired; B95.62 Methicillin resistant Staphylococcus aureus infection as the cause of diseases classified elsewhere; K21.9 Gastro-esophageal reflux disease without esophagitis; F90.9 Attention-deficit hyperactivity disorder, unspecified type; K59.00 Constipation, unspecified; F17.210 Nicotine dependence, cigarettes, uncomplicated; Y90.9 Presence of alcohol in blood, level not specified; Z79.51 Long term (current) use of inhaled steroids; Z79.52 Long term (current) use of systemic steroids; Z79.899 Other long term (current) drug therapy
CPT/HCPCS: 36415; 71045; 71275; 74176; 80048; 80053; 81001; 82803; 82962; 83605; 83735; 83880; 85025; 85027; 85610; 87040; 87086; 87088; 87186; 93005; 93010; 94640; 94660; 94667; 94668; 94799; 96361; 96365; 96375; 99291; J0456; J0696; J1630; J1644; J2060; J2920; J2930; J3475; J3480; J3490; J7030; J7060; J7620

== ENCOUNTER 2018-09-20 20:55 | Emergency (ER) | payer MEDICARE ==
[2018-09-20] MEDS ORDERED: IPRATROPIUM/ALBUTEROL 0.5-2.5 MG/3 ML AMPUL NEB ONE ×2 (21:04→23:12)
[2018-09-20] MEDS ORDERED: ALBUTEROL SULFATE 0.083% NEB 2.5 MG/3 ML AMPUL NEB ONE ×2 (21:16→22:32)
--- NOTE | 2018-09-20 21:45 | RADIOLOGY REPORT (SQ) ---
EXAM DESCRIPTION: XR CHEST 1 VIEW COMPLETED DATE/TME: 09/20/2018 20:59 CLINICAL HISTORY: 68 years, Male, Respiratory Distress COMPARISON: Prior study from 07/29/2018 NUMBER OF VIEWS: One TECHNIQUE: Single frontal view of the chest was obtained portably LIMITATIONS: None. FINDINGS: Cardiac and mediastinal contours are normal in appearance. Lungs are clear. No pleural effusion or pneumothorax. IMPRESSION: No acute disease. copyright 2010 [employer]- All Rights Reserved
[2018-09-20 21:51] LABS: ABSOLUTE BASOPHILS # (AUTO) 0.1 10^3/uL (0.0-0.2); ABSOLUTE LYMPHOCYTES (AUTO) 3.5 10^3/uL (0.5-4.7); ABSOLUTE MONOCYTES (AUTO) 0.9 10^3/uL (0.1-1.4); ABSOLUTE NEUT (AUTO) 5.4 10^3/uL (1.7-8.2); BASOPHILS % (AUTO) 0.9 % (0-2); EOSINOPHILS % (AUTO) 0.4 % (0-6); HEMATOCRIT 43.5 % (37.9-51.0); HEMOGLOBIN 14.9 g/dL (13.5-17.0); LYMPHOCYTES % (AUTO) 35.4 % (13-45); MEAN CORPUSCULAR HEMOGLOBIN 31.1 pg (27.0-33.4); MEAN CORPUSCULAR HGB CONC 34.2 g/dL (32.0-36.0); MEAN CORPUSCULAR VOLUME 91 fl (80-97); PLATELET COUNT 182 10^3/uL (150-450); RED BLOOD COUNT 4.79 10^6/uL (4.35-5.55); RED CELL DISTRIBUTION WIDTH 14.4 % (11.5-14.0); SEGMENTED NEUTROPHILS % (AUTO) 54.3 % (42-78); TOTAL CELLS COUNTED % (AUTO) 100 %; WHITE BLOOD COUNT 9.9 10^3/uL (4.0-10.5)
[2018-09-20 21:52] LABS: VENOUS BLOOD BASE EXCESS 5.9 mmol/L; VENOUS BLOOD HCO3 32.9 mmol/L (20-32); VENOUS BLOOD PCO2 56.6 mmHg (35-63); VENOUS BLOOD PH 7.38 (7.30-7.42)
[2018-09-20 22:14] LABS: ALANINE AMINOTRANSFERASE 49 U/L (21-72); ALBUMIN 3.8 g/dL (3.5-5.0); ALKALINE PHOSPHATASE 66 U/L (38-126); ANION GAP 8 (5-19); ASPARTATE AMINO TRANSFERASE 31 U/L (17-59); BILIRUBIN,DIRECT 0.2 mg/dL (0.0-0.4); BILIRUBIN,TOTAL 0.2 mg/dL (0.2-1.3); BLOOD UREA NITROGEN 14 mg/dL (7-20); CALCIUM 9.5 mg/dL (8.4-10.2); CARBON DIOXIDE 33 mmol/L (22-30); CHLORIDE 101 mmol/L (98-107); GLUCOSE 137 mg/dL (75-110); POTASSIUM 4.3 mmol/L (3.6-5.0); SODIUM 141.5 mmol/L (137-145); TOTAL PROTEIN 6.5 g/dL (6.3-8.2)
[2018-09-20] MEDS ORDERED: METHYLPREDNISOLONE INJ 125 MG/2 ML SDV IV ONE (23:11)
[2018-09-20] MEDS ORDERED: RINGERS SOLUTION,LACTATED 1,000 ML IV ONE (23:38)
--- NOTE | 2018-09-20 23:38 | ER Document Report ---
ED General - General Chief Complaint: Respiratory Distress Stated Complaint: SHORT OF BREATH Time Seen by Provider: 09/20/18 21:25 Primary Care Provider: JOSSE MORTENSEN MD [Primary Care Provider] - Follow up tomorrow Notes: Patient is a 68-year-old male with a past medical history of COPD, tobacco abuse, alcohol abuse, presents complaining of shortness of breath. States that his symptoms started 48 hours ago, have been worsening over that time. Has been using home nebulizers without significant improvement. Regards to symptoms as being moderate to severe. No worsening factor. States this feels somewhat similar to when he has had COPD exacerbations in the past that required hospitalization. Has not seen his primary care doctor regarding today's concerns. Has had a mild cough without sputum production. No fever or constitutional symptoms. TRAVEL OUTSIDE OF THE [place] IN LAST 30 DAYS: No - Related Data Allergies/Adverse Reactions: No Known Allergies Allergy (Verified 03/16/18 18:39) Past Medical History - General Information source: Patient - Social History Smoking Status: Current Every Day Smoker Chew tobacco use (# tins/day): No Frequency of alcohol use: Heavy Drug Abuse: None Family History: CAD, DM, Hypertension Patient has suicidal ideation: No Patient has homicidal ideation: No - Past Medical History Cardiac Medical History: Reports: Hx Hypercholesterolemia Pulmonary Medical History: Reports: Hx Asthma, Hx Bronchitis, Hx COPD, Hx Pneumonia, Hx Sleep Apnea Renal/ Medical History: Reports: Hx Kidney Stones. Denies: Hx Peritoneal Dialysis GI Medical History: Reports: Hx Gastroesophageal Reflux Disease, Hx Hiatal Hernia, Hx Ulcer Musculoskeletal Medical History: Reports Hx Arthritis Psychiatric Medical History: Reports: Hx Attention Deficit Hyperactivity Disorder, Hx Bipolar Disorder, Hx Depression Past Surgical History: Reports: Hx Appendectomy, Hx Cholecystectomy, Hx Genitourinary Surgery - removal of bladder cancer x2, Other - Surgery for bladder cancer - Immunizations Hx Diphtheria, Pertussis, Tetanus Vaccination: Yes Hx Pneumococcal Vaccination: 05/16/11 Review of Systems - Review of Systems Notes: Constitutional: Negative for fever. HENT: Negative for sore throat. Eyes: Negative for visual changes. Cardiovascular: Negative for chest pain. Respiratory: Positive for shortness of breath. Gastrointestinal: Negative for abdominal pain, vomiting or diarrhea. Genitourinary: Negative for dysuria. Musculoskeletal: Negative for back pain. Skin: Negative for rash. Neurological: Negative for headaches, weakness or numbness. 10 point ROS negative except as marked above and in HPI. Physical Exam - Vital signs Vitals: Temp Pulse Resp BP Pulse Ox 99.2 F 113 H 28 H 127/107 H 97 09/20/18 20:59 09/20/18 20:59 09/20/18 20:59 09/20/18 20:59 09/20/18 20:59 Interpretation: Tachycardic Notes: PHYSICAL EXAMINATION: GENERAL: Well-appearing, well-nourished and in no acute distress. HEAD: Atraumatic, normocephalic. EYES: Pupils equal round and reactive to light, extraocular movements intact, sclera anicteric, conjunctiva are normal. ENT: nares patent, oropharynx clear without exudates. Moist mucous membranes. NECK: Normal range of motion, supple without lymphadenopathy LUNGS: Faint end expiratory wheezing in all lung garza. No significant diminishment of air movement throughout. HEART: Regular rate and rhythm without murmurs ABDOMEN: Soft, nontender, normoactive bowel sounds. No guarding, no rebound. No masses appreciated. EXTREMITIES: Normal range of motion, no pitting or edema. No cyanosis. NEUROLOGICAL: No focal neurological deficits. Moves all extremities spontaneously and on command. PSYCH: Normal mood, normal affect. SKIN: Warm, Dry, normal turgor, no rashes or lesions noted. Course - Re-evaluation Re-evalutation: 09/20/18 23:38 Patient presents with a mild exacerbation of their baseline COPD. Mild wheezing at time of presentation but vitals do not show significant hypoxemia or tachypnea. No retractions. Patient did clinically improve after receiving nebulizers here in the emergency department. Chest x-ray without evidence of an acute pneumonia. Laboratories do not show acute kidney injury or significant leukocytosis. Patient able to ambulate without any respiratory distress. Based on patient's overall reassuring assessment, I believe they are stable for outpatient management with steroids. Patient has nebulizers at home. I do not suspect an acute alternative pathology at this time based on history and exam including acute pulmonary embolus, ACS, pneumothorax, or aortic dissection. At this time will discharge with return precautions and follow-up recommendations. Verbal discharge instructions given a the bedside and opportunity for questions given. Medication warnings reviewed. Patient is in agreement with this plan and has verbalized understanding of return precautions and the need for primary care follow-up in the next 24-72 hours. - Vital Signs Vital signs: Temp Pulse Resp BP Pulse Ox 98 F 113 H 20 122/82 93 09/21/18 03:00 09/20/18 20:59 09/21/18 03:01 09/21/18 03:00 09/21/18 03:01 - Laboratory Result Diagrams: 09/20/18 21:27 09/20/18 21:27 Laboratory results interpreted by me: 09/20/18 09/20/18 09/20/18 21:27 21:27 21:27 RDW 14.4 H VBG HCO3 32.9 H Carbon Dioxide 33 H Glucose 137 H - Diagnostic Test Radiology reviewed: Image reviewed, Reports reviewed Radiology results interpreted by me: 09/21/18 04:10 Chest x-ray: No acute infiltrate or pneumothorax - EKG Interpretation by Me Additional EKG results interpreted by me: 09/21/18 04:10 Sinus tachycardia, rate 108. No ST elevations or depressions. QTC is 429. Discharge - Discharge Clinical Impression: COPD exacerbation, Shortness of breath Condition: Stable Disposition: HOME, SELF-CARE Additional Instructions: You were seen for a COPD exacerbation. Your symptoms improved with treatment here in the emergency department. However, it is very important that you return to the emergency department immediately if you began to have worsening difficulty breathing that does not respond to your normal home nebulizers. You are also being sent home on a five-day course of steroids that you should start taking tomorrow. Please also follow closely with your primary care physician. You should eturn to emergency department if you develop fever greater than 101, persistent cough, persistent vomiting, pass out, or any other symptoms that are concerning to you. Prescriptions: Prednisone [Deltasone 20 mg Tablet] 2 tab PO DAILY 5 Days tablet Referrals: JOSSE MORTENSEN MD [Primary Care Provider] - Follow up tomorrow
[2018-09-21] MEDS: MAGNESIUM SULFATE/D5W 1 GM/100 ML RTUPB IV SCH ×2 (00:10→00:32)
[2018-09-21 03:30] VITALS: BP 122/82
--- NOTE | 2018-09-21 19:43 | EKG REPORT ---
SEVERITY:- OTHERWISE NORMAL ECG - ARTIFACTS SINUS TACHYCARDIA : Confirmed by: Stefany Corona MD 21-Sep-2018 19:43:09
== END 2018-09-21 03:28 | disposition home or self-care (01) ==
LOC: ER 20:55
DX: J44.1 Chronic obstructive pulmonary disease with (acute) exacerbation (principal); R06.02 Shortness of breath; F17.200 Nicotine dependence, unspecified, uncomplicated; R05 Cough; R00.0 Tachycardia, unspecified; Z87.01 Personal history of pneumonia (recurrent)
CPT/HCPCS: 93005; 94640 ×2; 99285; 96375; 96365; 96366; 36415; 85025; 80053; 82803; 71045; 93010; J2930; J3475; J7120; A9270 ×3; J7620

== ENCOUNTER 2018-09-30 19:21 | Inpatient (IN) | payer MEDICARE ==
[2018-09-30] MEDS ORDERED: IPRATROPIUM/ALBUTEROL 0.5-2.5 MG/3 ML AMPUL NEB ONE (20:22)
[2018-09-30] MEDS ORDERED: NORMAL SALINE 1000 ML 1,000 ML IV ONE (20:22)
[2018-09-30] MEDS ORDERED: METHYLPREDNISOLONE INJ 125 MG/2 ML SDV IV ONE (20:22)
[2018-09-30 20:32] LABS: ABSOLUTE BASOPHILS # (AUTO) 0.1 10^3/uL (0.0-0.2); ABSOLUTE EOSINOPHILS # (AUTO) 0.1 10^3/uL (0.0-0.6); ABSOLUTE LYMPHOCYTES (AUTO) 3.9 10^3/uL (0.5-4.7); ABSOLUTE NEUT (AUTO) 6.1 10^3/uL (1.7-8.2); BASOPHILS % (AUTO) 0.6 % (0-2); EOSINOPHILS % (AUTO) 0.5 % (0-6); HEMATOCRIT 46.2 % (37.9-51.0); HEMOGLOBIN 15.4 g/dL (13.5-17.0); LYMPHOCYTES % (AUTO) 35.2 % (13-45); MEAN CORPUSCULAR HEMOGLOBIN 30.6 pg (27.0-33.4); MEAN CORPUSCULAR HGB CONC 33.4 g/dL (32.0-36.0); MEAN CORPUSCULAR VOLUME 92 fl (80-97); MONOCYTES % (AUTO) 9.3 % (3-13); PLATELET COUNT 176 10^3/uL (150-450); RED BLOOD COUNT 5.04 10^6/uL (4.35-5.55); RED CELL DISTRIBUTION WIDTH 14.3 % (11.5-14.0); SEGMENTED NEUTROPHILS % (AUTO) 54.4 % (42-78); TOTAL CELLS COUNTED % (AUTO) 100 %; WHITE BLOOD COUNT 11.2 10^3/uL (4.0-10.5)
[2018-09-30 20:33] LABS: VENOUS BLOOD BASE EXCESS -0.6 mmol/L; VENOUS BLOOD HCO3 25.1 mmol/L (20-32); VENOUS BLOOD PCO2 45.2 mmHg (35-63); VENOUS BLOOD PH 7.36 (7.30-7.42)
[2018-09-30] MEDS: MAGNESIUM SULFATE/D5W 1 GM/100 ML RTUPB IV SCH ×2 (20:38→21:16)
--- NOTE | 2018-09-30 20:45 | ER Document Report ---
ED General - General Chief Complaint: Shortness Of Breath Stated Complaint: DIFFICULTY BREATHING Time Seen by Provider: 09/30/18 19:50 Notes: Patient is a 68-year-old male past medical history of essential hypertension, COPD, current smoker, presents with 2 days of progressively worsening shortness of breath. The patient was seen by me on September 20, states that he did take all steroids as prescribed but never feels like he got completely better. States over the last 2 days he has had progressively worsening shortness of breath that is constant, moderate to severe in intensity and worsened by exertion. Notes that he has been using his inhalers with minimal improvement. Has not seen his primary care doctor since last being seen in the emergency department. Has had cough without sputum production. Denies fever or constitutional symptoms. States this feels very similar to COPD exacerbations that he has had in the past with a required hospitalization. TRAVEL OUTSIDE OF THE [place] IN LAST 30 DAYS: No - Related Data Allergies/Adverse Reactions: No Known Allergies Allergy (Verified 03/16/18 18:39) Past Medical History - General Information source: Patient - Social History Smoking Status: Current Every Day Smoker Frequency of alcohol use: Occasional Drug Abuse: None Lives with: Spouse/Significant other Family History: CAD, DM, Hypertension Patient has suicidal ideation: No Patient has homicidal ideation: No - Past Medical History Cardiac Medical History: Reports: Hx Hypercholesterolemia Pulmonary Medical History: Reports: Hx Asthma, Hx Bronchitis, Hx COPD, Hx Pneumonia, Hx Sleep Apnea Renal/ Medical History: Reports: Hx Kidney Stones. Denies: Hx Peritoneal Dialysis GI Medical History: Reports: Hx Gastroesophageal Reflux Disease, Hx Hiatal Hernia, Hx Ulcer Musculoskeletal Medical History: Reports Hx Arthritis Psychiatric Medical History: Reports: Hx Attention Deficit Hyperactivity Disorder, Hx Bipolar Disorder, Hx Depression Past Surgical History: Reports: Hx Appendectomy, Hx Cholecystectomy, Hx Gen itourinary Surgery - removal of bladder cancer x2, Other - Surgery for bladder cancer - Immunizations Hx Diphtheria, Pertussis, Tetanus Vaccination: Yes Hx Pneumococcal Vaccination: 05/16/11 Review of Systems - Review of Systems Notes: Constitutional: Negative for fever. HENT: Negative for sore throat. Eyes: Negative for visual changes. Cardiovascular: Negative for chest pain. Respiratory: Positive for shortness of breath. Gastrointestinal: Negative for abdominal pain, vomiting or diarrhea. Genitourinary: Negative for dysuria. Musculoskeletal: Negative for back pain. Skin: Negative for rash. Neurological: Negative for headaches, weakness or numbness. 10 point ROS negative except as marked above and in HPI. Physical Exam - Vital signs Vitals: BP Pulse Ox 143/95 H 97 09/30/18 19:27 09/30/18 19:27 Interpretation: Hypertensive Notes: PHYSICAL EXAMINATION: GENERAL: Appears moderately unwell, mild to moderate respiratory distress on initial assessment. HEAD: Atraumatic, normocephalic. EYES: Pupils equal round and reactive to light, extraocular movements intact, sclera anicteric, conjunctiva are normal. ENT: nares patent, oropharynx clear without exudates. Moderately dry mucous membranes. NECK: Normal range of motion, supple without lymphadenopathy LUNGS: Globally diminished air movement throughout with coarse expiratory wheezing in all lung garza more prominent in the bilateral upper lobes HEART: Regular tachycardia without murmurs ABDOMEN: Soft, nontender, normoactive bowel sounds. No guarding, no rebound. No masses appreciated. EXTREMITIES: Normal range of motion, no pitting or edema. No cyanosis. NEUROLOGICAL: No focal neurological deficits. Moves all extremities spontaneously and on command. PSYCH: Normal mood, normal affect. SKIN: Warm, Dry, normal turgor, no rashes or lesions noted. Course - Re-evaluation Re-evalutation: 09/30/18 20:24 Patient presents with increasing shortness of breath particular over the last 48 hours. Overall presentation very consistent with COPD exacerbation per on exam he has tight air movement in the lung garza with coarse expiratory wheezing throughout. Patient is in mild respiratory distress saturating in the mid 90s on his normal 3 L by nasal cannula. The patient will be started on continuous active acne boluses, IV Bienvenido Medrol, IV magnesium, IV fluids, chest x-ray and labs will be obtained. Will continue to reassess. 09/30/18 21:56 Patient has been reassessed on multiple occasions. Although patient initially improved after above management interventions he is again very tight, breathing 30 times per minute and states that he feels even worse than when he first came in. He is struggling to speak in a full sentence. Will begin continuous L butyryl nebulizers, BiPAP will be applied. Chest x-ray and labs unremarkable. Will continue to reassess. 09/30/18 23:01 Patient is much improved on BiPAP. Awaiting callback from hospitalist. 09/30/18 23:51 Patient has been discussed with Dr. Woodson the hospitalist who is accepted the patient to the medical floor on BiPAP. - Vital Signs Vital signs: Temp Pulse Resp BP Pulse Ox 98 F 121 H 23 H 103/64 98 09/30/18 23:00 09/30/18 19:30 10/01/18 01:54 10/01/18 01:00 10/01/18 01:54 - Laboratory Result Diagrams: 09/30/18 19:30 09/30/18 19:30 Laboratory results interpreted by me: 09/30/18 19:30 WBC 11.2 H RDW 14.3 H - Diagnostic Test Radiology reviewed: Image reviewed, Reports reviewed Radiology results interpreted by me: 09/30/18 21:57 Chest x-ray: No acute infiltrate or pneumothorax - EKG Interpretation by Me Additional EKG results interpreted by me: 09/30/18 21:57 Sinus tachycardia, rate 109. No ST elevations or depressions. Intermittent PACs. QTC 421. Critical Care Note - Critical Care Note Total time excluding time spent on procedures (mins): 38 Comments: Critical care time spent obtaining history from patient or surrogate, discussions with consultants, development of treatment plan with patient or surrogate, evaluation of patient's response to treatment, examination of patient, ordering and performing treatments and interventions, ordering and review of laboratory studies, re-evaluation of patient's condition, ordering and review of radiographic studies and review of old charts Discharge - Discharge Clinical Impression: COPD with exacerbation, Respiratory distress, Tobacco dependence Condition: Fair Disposition: ADMITTED INPATIENT Admitting Provider: Chintan (Hospitalist) Unit Admitted: Medical Floor
[2018-09-30 20:48] LABS: ALANINE AMINOTRANSFERASE 48 U/L (21-72); ALBUMIN 3.9 g/dL (3.5-5.0); ALKALINE PHOSPHATASE 71 U/L (38-126); ANION GAP 10 (5-19); ASPARTATE AMINO TRANSFERASE 23 U/L (17-59); BILIRUBIN,DIRECT 0.2 mg/dL (0.0-0.4); BILIRUBIN,TOTAL 0.2 mg/dL (0.2-1.3); BLOOD UREA NITROGEN 19 mg/dL (7-20); CALCIUM 10.1 mg/dL (8.4-10.2); CARBON DIOXIDE 28 mmol/L (22-30); CHLORIDE 105 mmol/L (98-107); GLUCOSE 107 mg/dL (75-110); POTASSIUM 4.3 mmol/L (3.6-5.0); SODIUM 142.5 mmol/L (137-145); TOTAL PROTEIN 6.6 g/dL (6.3-8.2)
--- NOTE | 2018-09-30 21:18 | RADIOLOGY REPORT (SQ) ---
EXAM DESCRIPTION: XR CHEST 1 VIEW COMPLETED DATE/TME: 09/30/2018 20:23 CLINICAL HISTORY: sob COMPARISON: September 20, 2018 FINDINGS: Cardiac silhouette is within normal limits. EKG leads project over the chest. There is no focal parenchymal or pleural disease. There is no acute osseous process visualized. IMPRESSION: No evidence of acute cardiopulmonary disease.
[2018-09-30] MEDS ORDERED: ALBUTEROL SULFATE 0.083% NEB 2.5 MG/3 ML AMPUL NEB ONE (21:56)
[2018-09-30] MEDS ORDERED: MAGNESIUM HYDROXIDE SUSP 30 ML UDCUP PO PRN (23:49)
[2018-09-30] MEDS ORDERED: ONDANSETRON HCL INJ/PF 4 MG/2 ML SDV IV PRN (23:49)
[2018-09-30] MEDS ORDERED: MAG HYDROX/AL HYDROX/SIMETH SUSP 30 ML UDCUP PO PRN (23:49)
[2018-09-30] MEDS ORDERED: NICOTINE 21 MG/24 HR PATCH.TD24 TD PRN (23:57)
[2018-09-30] MEDS ORDERED: ACETAMINOPHEN 325 MG TABLET PO PRN (23:57)
[2018-09-30] MEDS ORDERED: LEVALBUTEROL HCL NEB 0.63 MG/3 ML AMPUL NEB PRN (23:57)
[2018-10-01] MEDS: IPRATROPIUM BROMIDE 0.02% NEB 0.5 MG/2.5 ML AMPUL NEB SCH ×4 (01:07→23:51)
[2018-10-01] MEDS: RINGERS SOLUTION,LACTATED 1,000 ML IV PRN ×2 (01:08→09:37)
[2018-10-01] MEDS: LEVALBUTEROL HCL NEB 1.25 MG/3 ML AMPUL NEB SCH ×4 (01:08→23:51)
[2018-10-01] MEDS: METHYLPREDNISOLONE INJ 40 MG/1 ML SDV IV SCH ×4 (02:55→21:32)
[2018-10-01] MEDS ORDERED: DIAZEPAM INJ 10 MG/2 ML DISP.SYRIN IV PRN (05:09)
--- NOTE | 2018-10-01 05:09 | PDOC H&P ---
History of Present Illness Admission Date/PCP: 09/30/2018 JOSSE MORTENSEN MD Patient complains of: Dyspnea History of Present Illness: MANI FLYNN is a 68 year old male who presented to the emergency room with a one-week history of progressively worsening dyspnea. He indicates that his breathing has been becoming more and more difficult over the last week and especially so over the last 24 to 48 hours prior to his admission. His dyspnea has become severe with profound dyspnea at rest even while using his home oxygen at 3 L/min via nasal cannula. Additionally he complains of markedly increased dyspnea with any exertion, wheezing and air hunger. He further admits numerous prior similar episodes related to his COPD and also confesses that he has not been able to identify any other aggravating or ameliorating factors for his dyspnea. In the emergency room he was found to have significant hypoxia and hypercapnia requiring BiPAP intervention to alleviate his symptoms. His work-up was essentially unremarkable but due to his continued requirement for BiPAP he was admitted to the hospital for further evaluation and treatment. Past Medical History Cardiac Medical History: Reports: Hyperlipidema Denies: Coronary Artery Disease, DVT, Myocardial Infarction, Hypertension, Pulmonary Embolism Pulmonary Medical History: Reports: Asthma, Bronchitis, Chronic Obstructive Pulmonary Disease (COPD), Pneumonia, Respiratory Failure, Sleep Apnea EENT Medical History: Denies: Cataracts, Eyes - Prescription lenses, Ears - Hearing aids Neurological Medical History: Denies: Hemorrhagic CVA, Ischemic CVA, Seizures Endocrine Medical History: Denies: Diabetes Mellitus Type 1, Diabetes Mellitus Type 2, Hyperthyroidism, Hypothyroidism Renal/ Medical History: Denies: Chronic Kidney Disease, Nephrolithiasis Malignancy Medical History: Reports: Other - Urinary bladder cancer GI Medical History: Reports: Gastroesophageal Reflux Disease, Hiatal Hernia Denies: Cirrhosis, Hepatitis Musculoskeltal Medical History: Reports: Arthritis Denies: Gout Skin Medical History: Denies: Eczema, Psoriasis Psychiatric Medical History: Reports: Alcohol Dependency, Attention Deficit Hyperactivity Disorder, Bipolar Disorder, Depression, Tobacco Dependency Denies: Substance Abuse Traumatic Medical History: Reports: None Hematology: Denies: Anemia, Bleeding Tendencies Infectious Medical History: Reports: None Past Surgical History Past Surgical History: Reports: Appendectomy, Cholecystectomy, Other - Surgery for bladder cancer Social History Information Source: Patient Smoking Status: Current Every Day Smoker Frequency of Alcohol Use: Heavy Hx Recreational Drug Use: No Drugs: None Hx Prescription Drug Abuse: No - Advance Directive Resuscitation Status: Full Code Surrogate healthcare decision maker:: Gisela Degroot his daughter Family History Family History: CAD, DM, Hypertension Parental Family History Reviewed: Yes Children Family History Reviewed: No Sibling(s) Family History Reviewed.: Yes Medication/Allergy Home Medications: Budesonide/Formoterol Fumarate [Symbicort HFA 160-4.5 mcg Inhaler 6 gm] 2 puff IH Q12 10/16/17 Ascorbic Acid [Vitamin C] 1,000 mg PO DAILYP PRN 10/27/17 Albuterol Sulfate [Albuterol Sulfate 2.5mg/3 mL] 3 ml IH RTQ4HP PRN #1 [email or web address] 11/04/17 Aspirin [Aspirin EC] 81 mg PO DAILY 03/17/18 Buspirone HCl [Buspar 10 mg Tablet] 15 mg PO Q12 tablet 03/25/18 Fluticasone Propionate [Flonase Nasal [place] 50 Mcg/[place] 16 gm] 2 spray NASL DAILY spray.pump 03/25/18 Guaifenesin [Mucinex] 600 mg PO DAILY 05/07/18 Prednisone [Thom] 5 mg PO DAILY 05/07/18 Acetaminophen [Tylenol 325 mg Tablet] 650 mg PO Q4HP PRN tablet 05/16/18 Ipratropium/Albuterol Sulfate [Duoneb 3 ml Ampul] 3 ml [facility] RTQ6 30 Days #120 [email or web address] 05/16/18 Docusate Sodium [Colace] 100 mg PO DAILYP PRN 07/29/18 Sulfamethoxazole/Trimethoprim [Septra-Ds 800-160 mg Tablet] 1 tab PO BID #24 tablet 08/02/18 Prednisone [Deltasone 20 mg Tablet] 2 tab PO DAILY 5 Days tablet 09/21/18 Allergies/Adverse Reactions: No Known Allergies Allergy (Verified 03/16/18 18:39) Review of Systems Constitutional: ABSENT: chills, fever(s) Eyes: ABSENT: visual disturbances, other - Ocular pain Ears: ABSENT: hearing changes, other - Ear pain Nose, Mouth, and Throat: ABSENT: mouth pain, sore throat Cardiovascular: PRESENT: dyspnea on exertion. ABSENT: chest pain, edema, orthropnea, palpitations Respiratory: PRESENT: dyspnea, other - Wheezing and air hunger. ABSENT: cough Gastrointestinal: ABSENT: abdominal pain, constipation, diarrhea, nausea, vomiting Genitourinary: ABSENT: dysuria, hematuria Musculoskeletal: ABSENT: back pain, joint swelling, muscle weakness Integumentary: ABSENT: pruritus, rash Neurological: ABSENT: confusion, convulsions, focal weakness, memory loss, syncope Psychiatric: ABSENT: anxiety, depression Endocrine: ABSENT: cold intolerance, heat intolerance Hematologic/Lymphatic: ABSENT: easy bleeding, easy bruising Physical Exam Vital Signs: Temp Pulse Resp BP Pulse Ox 99.5 F 121 H 28 H 126/73 H 96 09/30/18 19:30 09/30/18 19:30 09/30/18 22:01 09/30/18 22:01 09/30/18 22:01 Intake & Output 09/28/18 09/29/18 09/30/18 23:59 23:59 23:59 Intake Total 1200 Balance 1200 Weight 91.4 kg General appearance: PRESENT: no acute distress, cooperative Head exam: PRESENT: atraumatic, normocephalic Eye exam: ABSENT: conjunctival injection, scleral icterus Ear exam: PRESENT: normal external ear exam. ABSENT: bleeding, drainage Mouth exam: PRESENT: dry mucosa, neck supple Neck exam: ABSENT: thyromegaly, tracheal deviation Respiratory exam: PRESENT: decreased breath sounds - Decreased breath sounds throughout all lung garza noted consistent with moderate to severe COPD., prolonged expiratory phas - Mildly prolonged expiratory phase noted, symmetrical, wheezes - Moderate end expiratory wheezes noted Cardiovascular exam: PRESENT: RRR. ABSENT: clicks, gallop, rubs Pulses: PRESENT: normal radial pulses, normal dorsalis pedis pul Vascular exam: PRESENT: normal capillary refill. ABSENT: pallor GI/Abdominal exam: PRESENT: normal bowel sounds, soft Rectal exam: PRESENT: deferred Extremities exam: ABSENT: joint swelling, pedal edema Musculoskeletal exam: PRESENT: full ROM, normal inspection Neurological exam: PRESENT: alert, oriented to person, oriented to place, oriented to time, oriented to situation, CN II-XII grossly intact. ABSENT: motor sensory deficit Psychiatric exam: PRESENT: appropriate affect, normal mood Skin exam: PRESENT: dry, intact, warm. ABSENT: jaundice, rash, urticaria Results Laboratory Results: 09/30/18 19:30 09/30/18 19:30 09/30/18 09/30/18 09/30/18 19:30 19:30 19:30 WBC 11.2 H RBC 5.04 Hgb 15.4 Hct 46.2 MCV 92 MCH 30.6 MCHC 33.4 RDW 14.3 H Plt Count 176 Seg Neutrophils % 54.4 Lymphocytes % 35.2 Monocytes % 9.3 Eosinophils % 0.5 Basophils % 0.6 Absolute Neutrophils 6.1 Absolute Lymphocytes 3.9 Absolute Monocytes 1.0 Absolute Eosinophils 0.1 Absolute Basophils 0.1 VBG pH 7.36 VBG pCO2 45.2 VBG HCO3 25.1 VBG Base Excess -0.6 Sodium 142.5 Potassium 4.3 Chloride 105 Carbon Dioxide 28 Anion Gap 10 BUN 19 Creatinine 1.11 Est GFR ( Amer) > 60 Est GFR (Non-Af Amer) > 60 Glucose 107 Calcium 10.1 Total Bilirubin 0.2 AST 23 ALT 48 Alkaline Phosphatase 71 Total Protein 6.6 Albumin 3.9 09/30/18 19:30 Troponin I < 0.012 Impressions: Chest X-Ray 09/30/18 20:23 IMPRESSION: No evidence of acute cardiopulmonary disease. Assessment and Plan - Diagnosis (1) Acute and chronic respiratory failure with hypercapnia Is this a current diagnosis for this admission?: Yes Plan: Patient be treated with BiPAP and supplemental oxygen via noninvasive measures if possible. Patient's respiratory status will be supported utilizing supportive cares and symptomatic cares as required. (2) COPD exacerbation Is this a current diagnosis for this admission?: Yes Plan: Patient's treatment will consist of an aggressive pulmonary toilet utilizing nebulizer therapy with Xopenex, Pulmicort and Atrovent. He will also receive IV Solu-Medrol as well as routine supportive and symptomatic cares. (3) Alcohol use disorder Is this a current diagnosis for this admission?: Yes Plan: The patient's alcohol use disorder will require treatment with Valium 10 mg p.o. every 6 hours to avoid withdrawal symptoms. Additionally he will receive Valium 10 mg IV q. one hour as needed for severe withdrawal symptoms. (4) Tobacco dependence Is this a current diagnosis for this admission?: Yes Plan: Smoking cessation is advised and counseled briefly. Nicotine replacement patch will be available for patients use. - Time Time Spent with patient: 25-34 minutes Smoking Cessation Education: 3 to 10 minutes Medications reviewed and adjusted accordingly: Yes Anticipated discharge: Home - Inpatient Certification Based on my medical assessment, after consideration of the patient's comorbidities, presenting symptoms, or acuity I expect that the services needed warrant INPATIENT care.: Yes I certify that my determination is in accordance with my understanding of Medicare's requirements for reasonable and necessary INPATIENT services [42 CFR 412.3e].: Yes Medical Necessity: Significant Comorbidiites Make Outpatient Treatment Too Risky, Need Close Monitoring Due to Risk of Patient Decompensation, Need for Nebulizer Therapy and Monitoring of Response, Risk of Complication if Not Cared For in Hospital
[2018-10-01] MEDS ORDERED: CHLORPROMAZINE HCL INJ 25 MG/1 ML AMPULE IV PRN (05:13)
[2018-10-01] MEDS: HEPARIN SOD (PORCINE) 5,000 UNIT/ML 1 ML SYRINGE SUBCUT SCH ×3 (05:31→21:25)
[2018-10-01] MEDS: DIAZEPAM 5 MG TABLET PO SCH ×4 (05:31→23:52)
[2018-10-01 06:18] LABS: HEMATOCRIT 43.1 % (37.9-51.0); HEMOGLOBIN 14.5 g/dL (13.5-17.0); MEAN CORPUSCULAR HEMOGLOBIN 30.8 pg (27.0-33.4); MEAN CORPUSCULAR HGB CONC 33.6 g/dL (32.0-36.0); MEAN CORPUSCULAR VOLUME 92 fl (80-97); PLATELET COUNT 150 10^3/uL (150-450); RED CELL DISTRIBUTION WIDTH 14.2 % (11.5-14.0); WHITE BLOOD COUNT 8.6 10^3/uL (4.0-10.5)
[2018-10-01 06:36] LABS: ANION GAP 11 (5-19); BLOOD UREA NITROGEN 16 mg/dL (7-20); CALCIUM 9.3 mg/dL (8.4-10.2); CARBON DIOXIDE 27 mmol/L (22-30); CHLORIDE 104 mmol/L (98-107); CHOLESTEROL 210.39 mg/dL (0-200); GLUCOSE 222 mg/dL (75-110); SODIUM 142.2 mmol/L (137-145); TRIGLYCERIDES 81 mg/dL (<150)
[2018-10-01 06:47] LABS: DIRECT LDL 160 mg/dL (<100)
[2018-10-01 06:53] LABS: FREE T3 3.01 pg/mL (2.77-5.27); FREE T4 (FREE THYROXINE) 0.84 ng/dL (0.78-2.19)
[2018-10-01 07:07] LABS: THYROID STIMULATING HORMONE 0.42 uIU/mL (0.47-4.68)
[2018-10-01 07:10] LABS: POTASSIUM 5.3 mmol/L (3.6-5.0)
[2018-10-01] MEDS ORDERED: INSULIN REG, HUMAN 100 UNIT/ML 3 ML VIAL (PYX) SUBCUT SCH (08:00)
[2018-10-01] MEDS: BUDESONIDE NEB 0.5 MG/2 ML AMPUL NEB SCH ×2 (08:35→19:47)
[2018-10-01] MEDS: FLUTICASONE NASAL SPRAY 50 MCG/SPRY 120 SPRAY/16 GM NASL SCH (09:37)
[2018-10-01] MEDS: FAMOTIDINE 20 MG TABLET PO SCH ×2 (09:38→21:33)
[2018-10-01] MEDS: BUSPIRONE HCL 10 MG TABLET PO SCH ×2 (09:38→21:32)
[2018-10-01] MEDS: ASPIRIN 81 MG TABLET, ENT COATED PO SCH (09:38)
[2018-10-01] MEDS: DOCUSATE SODIUM 100 MG CAPSULE PO SCH ×2 (09:38→17:37)
[2018-10-01] MEDS: NALBUPHINE HCL INJ 10 MG/1 ML AMPULE IV PRN ×2 (09:45→21:44)
[2018-10-01 09:57] LABS: APPEARANCE,URINE CLEAR; BILIRUBIN,URINE NEGATIVE (NEGATIVE); COLOR,URINE STRAW; GLUCOSE, URINE 150 mg/dL (NEGATIVE); KETONES,URINE NEGATIVE (NEGATIVE); LEUKOCYTE ESTERASE,URINE NEGATIVE (NEGATIVE); NITRITE,URINE NEGATIVE (NEGATIVE); PROTEIN,URINE NEGATIVE (NEGATIVE); UROBILINOGEN,URINE NEGATIVE mg/dL (<2.0)
[2018-10-01] MEDS ORDERED: HYDRALAZINE HCL INJ/PF 20 MG/1 ML SDV IV PRN (17:30)
--- NOTE | 2018-10-01 17:40 | PDOC PROGRESS REPORT ---
Subjective Progress Note for:: 10/01/18 Subjective:: No adverse events overnight. No new complaints. He is having to sit up on the edge of the bed in a tripod position with some accessory muscle use to breathe more comfortably. No fevers. He is asking for some Mucinex because his chest feels congested. Reason For Visit: ACUTE EXACERBATION OF COPD Physical Exam Vital Signs: Temp Pulse Resp BP Pulse Ox 98.9 F 92 16 180/122 H 99 10/01/18 12:00 10/01/18 12:00 10/01/18 12:00 10/01/18 12:00 10/01/18 12:00 Intake & Output 09/30/18 10/01/18 10/02/18 06:59 06:59 06:59 Intake Total 1200 2000 Balance 1200 2000 Weight 85.4 kg General appearance: PRESENT: cooperative, disheveled, mild distress Mouth exam: PRESENT: dry mucosa, neck supple Teeth exam: PRESENT: poor dentation Respiratory exam: PRESENT: accessory muscle use, decreased breath sounds, prolonged expiratory phas, symmetrical. ABSENT: crackles, rhonchi, tachypnea, unlabored, wheezes Cardiovascular exam: PRESENT: RRR, +S1, +S2 Pulses: PRESENT: normal carotid pulses Vascular exam: PRESENT: normal capillary refill GI/Abdominal exam: PRESENT: normal bowel sounds, soft. ABSENT: distended, guarding, rebound, tenderness Extremities exam: ABSENT: clubbing, pedal edema Musculoskeletal exam: PRESENT: normal inspection. ABSENT: deformity Neurological exam: PRESENT: alert, awake, oriented to person, oriented to place, oriented to time, oriented to situation Psychiatric exam: PRESENT: appropriate affect, normal mood Skin exam: PRESENT: dry, warm Results Laboratory Results: 10/01/18 06:07 10/01/18 06:07 09/30/18 09/30/18 09/30/18 19:30 19:30 19:30 WBC 11.2 H RBC 5.04 Hgb 15.4 Hct 46.2 MCV 92 MCH 30.6 MCHC 33.4 RDW 14.3 H Plt Count 176 Seg Neutrophils % 54.4 Lymphocytes % 35.2 Monocytes % 9.3 Eosinophils % 0.5 Basophils % 0.6 Absolute Neutrophils 6.1 Absolute Lymphocytes 3.9 Absolute Monocytes 1.0 Absolute Eosinophils 0.1 Absolute Basophils 0.1 VBG pH 7.36 VBG pCO2 45.2 VBG HCO3 25.1 VBG Base Excess -0.6 Sodium 142.5 Potassium 4.3 Chloride 105 Carbon Dioxide 28 Anion Gap 10 BUN 19 Creatinine 1.11 Est GFR ( Amer) > 60 Est GFR (Non-Af Amer) > 60 Glucose 107 Calcium 10.1 Magnesium Total Bilirubin 0.2 AST 23 ALT 48 Alkaline Phosphatase 71 Total Protein 6.6 Albumin 3.9 Triglycerides Cholesterol LDL Cholesterol Direct VLDL Cholesterol HDL Cholesterol TSH Free T4 Free T3 pg/mL Urine Color Urine Appearance Urine pH Ur Specific [place] Urine Protein Urine Glucose (UA) Urine Ketones Urine Blood Urine Nitrite Ur Leukocyte Esterase Urine WBC (Auto) 10/01/18 10/01/18 10/01/18 06:07 06:07 06:07 WBC 8.6 RBC 4.70 Hgb 14.5 Hct 43.1 MCV 92 MCH 30.8 MCHC 33.6 RDW 14.2 H Plt Count 150 Seg Neutrophils % Lymphocytes % Monocytes % Eosinophils % Basophils % Absolute Neutrophils Absolute Lymphocytes Absolute Monocytes Absolute Eosinophils Absolute Basophils VBG pH VBG pCO2 VBG HCO3 VBG Base Excess Sodium 142.2 Potassium 5.3 H D Chloride 104 Carbon Dioxide 27 Anion Gap 11 BUN 16 Creatinine 0.87 Est GFR ( Amer) > 60 Est GFR (Non-Af Amer) > 60 Glucose 222 H Calcium 9.3 Magnesium 2.3 Total Bilirubin AST ALT Alkaline Phosphatase Total Protein Albumin Triglycerides 81 Cholesterol 210.39 H LDL Cholesterol Direct 160 H VLDL Cholesterol 16.0 HDL Cholesterol 46 TSH 0.42 L Free T4 0.84 Free T3 pg/mL 3.01 Urine Color Urine Appearance Urine pH Ur Specific [place] Urine Protein Urine Glucose (UA) Urine Ketones Urine Blood Urine Nitrite Ur Leukocyte Esterase Urine WBC (Auto) 10/01/18 09:30 WBC RBC Hgb Hct MCV MCH MCHC RDW Plt Count Seg Neutrophils % Lymphocytes % Monocytes % Eosinophils % Basophils % Absolute Neutrophils Absolute Lymphocytes Absolute Monocytes Absolute Eosinophils Absolute Basophils VBG pH VBG pCO2 VBG HCO3 VBG Base Excess Sodium Potassium Chloride Carbon Dioxide Anion Gap BUN Creatinine Est GFR ( Amer) Est GFR (Non-Af Amer) Glucose Calcium Magnesium Total Bilirubin AST ALT Alkaline Phosphatase Total Protein Albumin Triglycerides Cholesterol LDL Cholesterol Direct VLDL Cholesterol HDL Cholesterol TSH Free T4 Free T3 pg/mL Urine Color STRAW Urine Appearance CLEAR Urine pH 5.0 Ur Specific [place] 1.010 Urine Protein NEGATIVE Urine Glucose (UA) 150 H Urine Ketones NEGATIVE Urine Blood SMALL H Urine Nitrite NEGATIVE Ur Leukocyte Esterase NEGATIVE Urine WBC (Auto) 0 09/30/18 19:30 Troponin I < 0.012 Impressions: Chest X-Ray 09/30/18 20:23 IMPRESSION: No evidence of acute cardiopulmonary disease. Assessment and Plan - Diagnosis (1) Acute and chronic respiratory failure with hypoxia Is this a current diagnosis for this admission?: Yes Plan: Says he is on 3 to 3.5 L per nasal cannula at home. Currently on 3 to 4 L here. (2) COPD with exacerbation Is this a current diagnosis for this admission?: Yes Plan: Continue with steroids and bronchodilators. Not really wheezing but his breath sounds are very diminished. We will de-escalate IV steroids when appropriate. - Time Time Spent with patient: 15-24 minutes
--- NOTE | 2018-10-01 17:47 | EKG REPORT ---
SEVERITY:- ABNORMAL ECG - SINUS TACHYCARDIA ATRIAL PREMATURE COMPLEX INFERIOR INFARCT, AGE INDETERMINATE : Confirmed by: Phil De Leon MD 01-Oct-2018 17:46:48
[2018-10-01] MEDS: GUAIFENESIN 600 MG TABLET.SA PO SCH (21:33)
[2018-10-02] MEDS: METHYLPREDNISOLONE INJ 40 MG/1 ML SDV IV SCH ×4 (04:24→20:44)
[2018-10-02] MEDS: HEPARIN SOD (PORCINE) 5,000 UNIT/ML 1 ML SYRINGE SUBCUT SCH ×3 (05:32→22:05)
[2018-10-02] MEDS: DIAZEPAM 5 MG TABLET PO SCH ×4 (05:47→23:20)
[2018-10-02] MEDS: NALBUPHINE HCL INJ 10 MG/1 ML AMPULE IV PRN ×2 (06:24→15:04)
[2018-10-02 06:50] LABS: HEMATOCRIT 40.9 % (37.9-51.0); HEMOGLOBIN 13.8 g/dL (13.5-17.0); MEAN CORPUSCULAR HEMOGLOBIN 30.5 pg (27.0-33.4); MEAN CORPUSCULAR HGB CONC 33.7 g/dL (32.0-36.0); MEAN CORPUSCULAR VOLUME 91 fl (80-97); PLATELET COUNT 145 10^3/uL (150-450); RED CELL DISTRIBUTION WIDTH 14.4 % (11.5-14.0)
[2018-10-02 06:51] LABS: WHITE BLOOD COUNT 17.7 10^3/uL (4.0-10.5)
[2018-10-02 07:20] LABS: ANION GAP 7 (5-19); BLOOD UREA NITROGEN 16 mg/dL (7-20); CALCIUM 9.3 mg/dL (8.4-10.2); CARBON DIOXIDE 27 mmol/L (22-30); CHLORIDE 105 mmol/L (98-107); GLUCOSE 139 mg/dL (75-110); POTASSIUM 4.8 mmol/L (3.6-5.0); SODIUM 139.2 mmol/L (137-145)
[2018-10-02] MEDS: BUDESONIDE NEB 0.5 MG/2 ML AMPUL NEB SCH ×2 (08:02→19:56)
[2018-10-02] MEDS: LEVALBUTEROL HCL NEB 1.25 MG/3 ML AMPUL NEB SCH ×2 (08:02→16:15)
[2018-10-02] MEDS: IPRATROPIUM BROMIDE 0.02% NEB 0.5 MG/2.5 ML AMPUL NEB SCH ×2 (08:02→16:15)
[2018-10-02] MEDS: ASPIRIN 81 MG TABLET, ENT COATED PO SCH (09:15)
[2018-10-02] MEDS: DOCUSATE SODIUM 100 MG CAPSULE PO SCH ×2 (09:15→18:17)
[2018-10-02] MEDS: GUAIFENESIN 600 MG TABLET.SA PO SCH ×2 (09:15→22:04)
[2018-10-02] MEDS: BUSPIRONE HCL 10 MG TABLET PO SCH ×2 (09:15→22:03)
[2018-10-02] MEDS: FLUTICASONE NASAL SPRAY 50 MCG/SPRY 120 SPRAY/16 GM NASL SCH (09:15)
[2018-10-02] MEDS: FAMOTIDINE 20 MG TABLET PO SCH ×2 (09:15→22:03)
[2018-10-02 17:51] LABS: ARTERIAL BLOOD BASE EXCESS 1.8 mmol/L; ARTERIAL BLOOD H2CO3 1.55 mmol/L (1.05-1.35); ARTERIAL BLOOD HCO3 28.4 mmol/L (20-24); ARTERIAL BLOOD O2 SATURATION 94.6 % (94-98); ARTERIAL BLOOD PCO2 51.5 mmHg (35-45); ARTERIAL BLOOD PH 7.36 (7.35-7.45); ARTERIAL BLOOD PO2 76.2 mmHg (80-100)
[2018-10-02 17:53] LABS: ARTERIAL BLOOD FIO2 3L
--- NOTE | 2018-10-02 18:07 | PDOC PROGRESS REPORT ---
Subjective Progress Note for:: 10/02/18 Subjective:: No adverse events overnight. No new complaints. He was eating today getting a little short of breath while he ate. He tried to walk a little bit and got really short of breath. He says he feels like his breathing is at about 75% of what is normal for him. He had to stop while talking in order to catch his breath. Reason For Visit: ACUTE EXACERBATION OF COPD Physical Exam Vital Signs: Temp Pulse Resp BP Pulse Ox 97.6 F 82 18 125/86 H 93 10/02/18 16:05 10/02/18 16:17 10/02/18 16:17 10/02/18 16:05 10/02/18 16:17 Intake & Output 10/01/18 10/02/18 10/03/18 06:59 06:59 06:59 Intake Total 1200 3918 320 Balance 1200 3918 320 Weight 85.4 kg 89.5 kg General appearance: PRESENT: cooperative, disheveled, mild distress Mouth exam: PRESENT: dry mucosa, neck supple Teeth exam: PRESENT: poor dentation Respiratory exam: PRESENT: accessory muscle use, decreased breath sounds, prolonged expiratory phas, symmetrical. ABSENT: crackles, rhonchi, tachypnea, unlabored, wheezes Cardiovascular exam: PRESENT: RRR, +S1, +S2 Pulses: PRESENT: normal carotid pulses Vascular exam: PRESENT: normal capillary refill GI/Abdominal exam: PRESENT: normal bowel sounds, soft. ABSENT: distended, guarding, rebound, tenderness Extremities exam: ABSENT: clubbing, pedal edema Musculoskeletal exam: PRESENT: normal inspection. ABSENT: deformity Neurological exam: PRESENT: alert, awake, oriented to person, oriented to place, oriented to time, oriented to situation Psychiatric exam: PRESENT: appropriate affect, normal mood Skin exam: PRESENT: dry, warm Results Laboratory Results: 10/02/18 06:36 10/02/18 06:36 10/02/18 10/02/18 10/02/18 06:36 06:36 17:35 WBC 17.7 H D RBC 4.50 Hgb 13.8 Hct 40.9 MCV 91 MCH 30.5 MCHC 33.7 RDW 14.4 H Plt Count 145 L Carbonic Acid 1.55 H HCO3/H2CO3 Ratio 18:1 ABG pH 7.36 ABG pCO2 51.5 H ABG pO2 76.2 L ABG HCO3 28.4 H ABG O2 Saturation 94.6 ABG Base Excess 1.8 FiO2 3L Sodium 139.2 Potassium 4.8 Chloride 105 Carbon Dioxide 27 Anion Gap 7 BUN 16 Creatinine 0.87 Est GFR ( Amer) > 60 Est GFR (Non-Af Amer) > 60 Glucose 139 H Calcium 9.3 Magnesium 2.2 09/30/18 19:30 Troponin I < 0.012 Impressions: Chest X-Ray 09/30/18 20:23 IMPRESSION: No evidence of acute cardiopulmonary disease. Assessment and Plan - Diagnosis (1) Acute and chronic respiratory failure with hypoxia Is this a current diagnosis for this admission?: Yes Plan: Says he is on 3 to 3.5 L per nasal cannula at home. Currently on 3 to 4 L here. We will continue supplemental O2 to maintain SPO2 greater than 90%. (2) COPD with exacerbation Is this a current diagnosis for this admission?: Yes Plan: Continue with IV steroids and bronchodilators. Not really wheezing but his breath sounds are still very diminished. We will de-escalate IV steroids when appropriate, but not today. - Time Time Spent with patient: 15-24 minutes
[2018-10-03] MEDS: IPRATROPIUM BROMIDE 0.02% NEB 0.5 MG/2.5 ML AMPUL NEB SCH ×3 (00:03→15:59)
[2018-10-03] MEDS: LEVALBUTEROL HCL NEB 1.25 MG/3 ML AMPUL NEB SCH ×3 (00:03→15:59)
[2018-10-03] MEDS: HEPARIN SOD (PORCINE) 5,000 UNIT/ML 1 ML SYRINGE SUBCUT SCH ×3 (06:02→21:59)
[2018-10-03] MEDS: DIAZEPAM 5 MG TABLET PO SCH ×4 (06:04→23:38)
[2018-10-03 06:06] LABS: HEMATOCRIT 40.6 % (37.9-51.0); HEMOGLOBIN 13.4 g/dL (13.5-17.0); MEAN CORPUSCULAR HEMOGLOBIN 30.4 pg (27.0-33.4); MEAN CORPUSCULAR HGB CONC 33.1 g/dL (32.0-36.0); MEAN CORPUSCULAR VOLUME 92 fl (80-97); PLATELET COUNT 140 10^3/uL (150-450); RED BLOOD COUNT 4.41 10^6/uL (4.35-5.55); RED CELL DISTRIBUTION WIDTH 14.2 % (11.5-14.0)
[2018-10-03] MEDS: BUDESONIDE NEB 0.5 MG/2 ML AMPUL NEB SCH ×2 (07:33→19:54)
[2018-10-03 07:42] LABS: ANION GAP 7 (5-19); BLOOD UREA NITROGEN 24 mg/dL (7-20); CALCIUM 9.3 mg/dL (8.4-10.2); CARBON DIOXIDE 32 mmol/L (22-30); CHLORIDE 103 mmol/L (98-107); GLUCOSE 136 mg/dL (75-110); POTASSIUM 4.4 mmol/L (3.6-5.0); SODIUM 141.7 mmol/L (137-145)
[2018-10-03] MEDS: NALBUPHINE HCL INJ 10 MG/1 ML AMPULE IV PRN ×2 (08:22→22:03)
[2018-10-03] MEDS: ASPIRIN 81 MG TABLET, ENT COATED PO SCH (09:03)
[2018-10-03] MEDS: FAMOTIDINE 20 MG TABLET PO SCH ×2 (09:03→21:59)
[2018-10-03] MEDS: BUSPIRONE HCL 10 MG TABLET PO SCH ×2 (09:03→21:59)
[2018-10-03] MEDS: GUAIFENESIN 600 MG TABLET.SA PO SCH ×2 (09:03→21:59)
[2018-10-03] MEDS: DOCUSATE SODIUM 100 MG CAPSULE PO SCH ×2 (09:03→17:04)
[2018-10-03] MEDS: FLUTICASONE NASAL SPRAY 50 MCG/SPRY 120 SPRAY/16 GM NASL SCH (09:04)
[2018-10-03] MEDS ORDERED: ALBUTEROL SULFATE 0.083% NEB 2.5 MG/3 ML AMPUL NEB PRN (17:27)
[2018-10-03] MEDS ORDERED: ALBUTEROL SULFATE HFA (90 MCG/PUFF) 200 PUFF/8.5 GM MDI IH PRN (17:27)
--- NOTE | 2018-10-03 17:39 | PDOC PROGRESS REPORT ---
Subjective Progress Note for:: 10/03/18 Subjective:: MANI FLYNN is a 68 year old male who presented to the emergency room with a one-week history of progressively worsening dyspnea. He indicates that his breathing has been becoming more and more difficult over the last week and especially so over the last 24 to 48 hours prior to his admission. His dyspnea has become severe with profound dyspnea at rest even while using his home oxygen at 3 L/min via nasal cannula. Additionally he complains of markedly increased dyspnea with any exertion, wheezing and air hunger. He further admits numerous prior similar episodes related to his COPD and also confesses that he has not been able to identify any other aggravating or ameliorating factors for his dyspnea. In the emergency room he was found to have significant hypoxia and hypercapnia requiring BiPAP intervention to alleviate his symptoms. His work-up was essentially unremarkable but due to his continued requirement for BiPAP he was admitted to the hospital for further evaluation and treatment. No adverse events overnight. No new complaints. He was eating today getting a little short of breath while he ate. He tried to walk a little bit and got r eally short of breath. He says he feels like his breathing is at about 75% of what is normal for him. He had to stop while talking in order to catch his breath. 10/03/2018: Patient is stable on nasal cannula oxygen. He has oxygen at home at 3-4 L/min via nasal cannula. He has chronic rib pain. He says he feels better overall. He was on Lasix apparently which was stopped couple months ago chauncey arently. He said he felt better when he was on Lasix. Reason For Visit: ACUTE EXACERBATION OF COPD Physical Exam Vital Signs: Temp Pulse Resp BP Pulse Ox 97.5 F 83 20 127/74 H 96 10/03/18 16:00 10/03/18 16:01 10/03/18 16:01 10/03/18 16:00 10/03/18 16:01 Intake & Output 10/02/18 10/03/18 10/04/18 06:59 06:59 06:59 Intake Total 3918 800 Balance 3918 800 Weight 197 lb 5.019 oz 197 lb 5.019 oz Exam: Patient is no acute distress Alert oriented to time place person No anxiety or depression Head: atraumatic normocephalic Pupils: are equal reactive Neck: is supple and trachea is central no lymphadenopathy No pharyngeal erythema or exudates Heart: Regular rate and rhythm, +1 edema bilaterally Lungs: Bilateral crackles Abdomen: nontender nondistended Neurological exam: unremarkable Musculoskeletal: No joint swelling or effusion chronic lower back pain and tenderness No suicidal or homicidal ideation Results Laboratory Results: 10/03/18 04:20 10/03/18 06:59 10/02/18 10/03/18 10/03/18 17:35 04:20 04:20 WBC 16.0 H RBC 4.41 Hgb 13.4 L Hct 40.6 MCV 92 MCH 30.4 MCHC 33.1 RDW 14.2 H Plt Count 140 L Carbonic Acid 1.55 H HCO3/H2CO3 Ratio 18:1 ABG pH 7.36 ABG pCO2 51.5 H ABG pO2 76.2 L ABG HCO3 28.4 H ABG O2 Saturation 94.6 ABG Base Excess 1.8 FiO2 3L Sodium Cancelled Potassium Cancelled Chloride Cancelled Carbon Dioxide Cancelled Anion Gap Cancelled BUN Cancelled Creatinine Cancelled Est GFR ( Amer) Cancelled Est GFR (Non-Af Amer) Cancelled Glucose Cancelled Calcium Cancelled Magnesium Cancelled 10/03/18 06:59 WBC RBC Hgb Hct MCV MCH MCHC RDW Plt Count Carbonic Acid HCO3/H2CO3 Ratio ABG pH ABG pCO2 ABG pO2 ABG HCO3 ABG O2 Saturation ABG Base Excess FiO2 Sodium 141.7 Potassium 4.4 Chloride 103 Carbon Dioxide 32 H Anion Gap 7 BUN 24 H Creatinine 1.10 Est GFR ( Amer) > 60 Est GFR (Non-Af Amer) > 60 Glucose 136 H Calcium 9.3 Magnesium 2.2 09/30/18 19:30 Troponin I < 0.012 Impressions: Chest X-Ray 09/30/18 20:23 IMPRESSION: No evidence of acute cardiopulmonary disease. Assessment and Plan - Diagnosis (1) COPD with exacerbation Is this a current diagnosis for this admission?: Yes Plan: Continue with IV steroids and bronchodilators. Not really wheezing but his breath sounds are still very diminished. We will de-escalate IV steroids when appropriate, but not today. 10/03/2018: Continue current medications. Switch to oral steroids. (2) Acute and chronic respiratory failure with hypoxia Is this a current diagnosis for this admission?: Yes Plan: Says he is on 3 to 3.5 L per nasal cannula at home. Currently on 3 to 4 L here. We will continue supplemental O2 to maintain SPO2 greater than 90%. 10/03/2018: Continue oxygen as needed. Titrate down as tolerated. (3) Tobacco dependence Is this a current diagnosis for this admission?: Yes Plan: Smoking cessation is advised and counseled briefly. Nicotine replacement patch will be available for patients use. 10/03/2018: Patient was counseled. He says he smokes about 3 cigarettes/day now. (4) Alcohol use disorder Is this a current diagnosis for this admission?: Yes Plan: The patient's alcohol use disorder will require treatment with Valium 10 mg p.o. every 6 hours to avoid withdrawal symptoms. Additionally he will receive Valium 10 mg IV q. one hour as needed for severe withdrawal symptoms. 10/03/2018: No symptoms or signs of withdrawal. Monitor clinically. Patient was counseled. (5) Edema Qualifiers: Edema type: unspecified Qualified Code(s): R60.9 - Edema, unspecified Is this a current diagnosis for this admission?: Yes Plan: 10/03/2018: Restart Lasix at 20 mg daily. (6) Anxiety Is this a current diagnosis for this admission?: Yes Plan: 10/03/2012: Continue home medications.
[2018-10-03] MEDS ORDERED: DIAZEPAM 5 MG TABLET PO PRN (17:53)
[2018-10-03 18:34] LABS: ANION GAP 11 (5-19); BLOOD UREA NITROGEN 25 mg/dL (7-20); CALCIUM 9.4 mg/dL (8.4-10.2); CARBON DIOXIDE 32 mmol/L (22-30); CHLORIDE 100 mmol/L (98-107); GLUCOSE 137 mg/dL (75-110); POTASSIUM 3.9 mmol/L (3.6-5.0); SODIUM 143.2 mmol/L (137-145)
[2018-10-03] MEDS: PREDNISONE 20 MG TABLET PO SCH (18:52)
[2018-10-03] MEDS: FUROSEMIDE 20 MG TABLET PO SCH (18:52)
[2018-10-03] MEDS ORDERED: (PENDING PHARMACY ID) (Guaifenesin [Mucinex] 600 MG) PO SCH (22:00)
[2018-10-04] MEDS: LEVALBUTEROL HCL NEB 1.25 MG/3 ML AMPUL NEB SCH ×2 (00:08→09:09)
[2018-10-04] MEDS: IPRATROPIUM BROMIDE 0.02% NEB 0.5 MG/2.5 ML AMPUL NEB SCH ×2 (00:08→09:09)
[2018-10-04] MEDS: DIAZEPAM 5 MG TABLET PO SCH ×2 (06:08→11:49)
[2018-10-04] MEDS: HEPARIN SOD (PORCINE) 5,000 UNIT/ML 1 ML SYRINGE SUBCUT SCH ×2 (06:08→13:52)
[2018-10-04 06:54] LABS: HEMOGLOBIN 14.8 g/dL (13.5-17.0); MEAN CORPUSCULAR HEMOGLOBIN 30.7 pg (27.0-33.4); MEAN CORPUSCULAR HGB CONC 33.6 g/dL (32.0-36.0); MEAN CORPUSCULAR VOLUME 91 fl (80-97); PLATELET COUNT 166 10^3/uL (150-450); RED BLOOD COUNT 4.81 10^6/uL (4.35-5.55); RED CELL DISTRIBUTION WIDTH 14.3 % (11.5-14.0); WHITE BLOOD COUNT 11.5 10^3/uL (4.0-10.5)
[2018-10-04] MEDS: FAMOTIDINE 20 MG TABLET PO SCH (09:03)
[2018-10-04] MEDS: FUROSEMIDE 20 MG TABLET PO SCH (09:03)
[2018-10-04] MEDS: DOCUSATE SODIUM 100 MG CAPSULE PO SCH (09:03)
[2018-10-04] MEDS: PREDNISONE 20 MG TABLET PO SCH (09:04)
[2018-10-04] MEDS: ASPIRIN 81 MG TABLET, ENT COATED PO SCH (09:04)
[2018-10-04] MEDS: BUSPIRONE HCL 10 MG TABLET PO SCH (09:04)
[2018-10-04] MEDS: GUAIFENESIN 600 MG TABLET.SA PO SCH (09:04)
[2018-10-04] MEDS: FLUTICASONE NASAL SPRAY 50 MCG/SPRY 120 SPRAY/16 GM NASL SCH (09:05)
[2018-10-04] MEDS: BUDESONIDE NEB 0.5 MG/2 ML AMPUL NEB SCH (09:09)
[2018-10-04] MEDS ORDERED: FLUTICASONE/VILANTEROL 200-25 MCG/DOSE IH SCH (10:00)
[2018-10-04] MEDS ORDERED: ONDANSETRON HCL INJ/PF 4 MG/2 ML SDV IV PRN (11:00)
[2018-10-04] MEDS: NALBUPHINE HCL INJ 10 MG/1 ML AMPULE IV PRN (12:01)
--- NOTE | 2018-10-04 12:56 | PDOC DISCHARGE SUMMARY ---
General - Admit/Disc Date/PCP Admission Date/Primary Care Provider: 10/01/18 00:10 JOSSE MORTENSEN MD Discharge Date: 10/04/18 - Discharge Diagnosis (1) COPD with exacerbation Is this a current diagnosis for this admission?: Yes (2) Acute and chronic respiratory failure with hypoxia Is this a current diagnosis for this admission?: Yes (3) Tobacco dependence Is this a current diagnosis for this admission?: Yes (4) Alcohol use disorder Is this a current diagnosis for this admission?: Yes (5) Edema Is this a current diagnosis for this admission?: Yes (6) Anxiety Is this a current diagnosis for this admission?: Yes - Additional Information Resuscitation Status: Full Code Discharge Diet: As Tolerated Discharge Activity: Activity As Tolerated Prescriptions: Furosemide [Lasix 20 mg Tablet] 20 mg PO DAILY #30 tablet Ipratropium/Albuterol Sulfate [Duoneb 3 ml Ampul] 3 ml NEB RTQ4HP PRN #60 vial.neb PRN Reason: Prednisone [Deltasone 20 mg Tablet] 20 mg PO DAILY #15 tablet Home Medications: Albuterol Sulfate [Proair HFA Inhalation Aerosol 8.5 gm MDI] 2 puff IH Q6HP PRN 10/01/18 Albuterol Sulfate [Ventolin 0.083% Neb 2.5 mg/3 mL Ampul] 1 vial NEB RTQ6HP PRN 10/01/18 Budesonide/Formoterol Fumarate [Symbicort HFA 160-4.5 mcg Inhaler 6 gm] 2 puff IH Q12 10/01/18 Buspirone HCl [Buspar 10 mg Tablet] 10 mg PO DAILY 10/01/18 Diazepam [Valium] 10 mg PO Q6HP PRN 10/01/18 Fluticasone Propionate [Flonase Nasal [place] 50 Mcg/[place] 16 gm] 1 spray NASL DAILY 10/01/18 Guaifenesin [Mucinex] 600 mg PO Q12 10/01/18 Furosemide [Lasix 20 mg Tablet] 20 mg PO DAILY #30 tablet 10/04/18 Ipratropium/Albuterol Sulfate [Duoneb 3 ml Ampul] 3 ml NEB RTQ4HP PRN #60 vial.neb 10/04/18 Nicotine [Nicoderm 21 mg/24 Hr Transderm Patch] 1 each TD DAILYP PRN patch.[id number] 10/04/18 Prednisone [Deltasone 20 mg Tablet] 20 mg PO DAILY #15 tablet 10/04/18 History of Present Illness History of Present Illness: MAIN FLYNN is a 68 year old male Hospital Course Hospital Course: MANI FLYNN is a 68 year old male who presented to the emergency room with a one-week history of progressively worsening dyspnea. He indicates that his breathing has been becoming more and more difficult over the last week and especially so over the last 24 to 48 hours prior to his admission. His dyspnea has become severe with profound dyspnea at rest even while using his home oxygen at 3 L/min via nasal cannula. Additionally he complains of markedly increased dyspnea with any exertion, wheezing and air hunger. He further admits numerous prior similar episodes related to his COPD and also confesses that he has not been able to identify any other aggravating or ameliorating factors for his dyspnea. In the emergency room he was found to have significant hypoxia and hypercapnia requiring BiPAP intervention to alleviate his symptoms. His work-up was essentially unremarkable but due to his continued requirement for BiPAP he was admitted to the hospital for further evaluation and treatment. No adverse events overnight. No new complaints. He was eating today getting a little short of breath while he ate. He tried to walk a little bit and got re ally short of breath. He says he feels like his breathing is at about 75% of what is normal for him. He had to stop while talking in order to catch his breath. 10/03/2018: Patient is stable on nasal cannula oxygen. He has oxygen at home at 3-4 L/min via nasal cannula. He has chronic rib pain. He says he feels better overall. He was on Lasix apparently which was stopped couple months ago stefani wallace. He said he felt better when he was on Lasix. Hospital course: (1) COPD with exacerbation Continue with IV steroids and bronchodilators. Not really wheezing but his breath sounds are still very diminished. We will de-escalate IV steroids when appropriate, but not today. 10/03/2018: Continue current medications. Switch to oral steroids. (2) Acute and chronic respiratory failure with hypoxia Says he is on 3 to 3.5 L per nasal cannula at home. Currently on 3 to 4 L here. We will continue supplemental O2 to maintain SPO2 greater than 90%. 10/03/2018: Continue oxygen as needed. Titrate down as tolerated. (3) Tobacco dependence Smoking cessation is advised and counseled briefly. Nicotine replacement patch will be available for patients use. 10/03/2018: Patient was counseled. He says he smokes about 3 cigarettes/day now. (4) Alcohol use disorder The patient's alcohol use disorder will require treatment with Valium 10 mg p.o. every 6 hours to avoid withdrawal symptoms. Additionally he will receive Valium 10 mg IV q. one hour as needed for severe withdrawal symptoms. 10/03/2018: No symptoms or signs of withdrawal. Monitor clinically. Patient was counseled. (5) Edema 10/03/2018: Restart Lasix at 20 mg daily. (6) Anxiety 10/03/2012: Continue home medications. Patient is doing much better today. He is chronically on home oxygen. He feels that he is very close to his baseline if not at his baseline. He recorded significant improvement after receiving Lasix and we will give him prescription for that. We will also give prescription for prednisone and DuoNeb. Patient is stable to go home and he is anxious to be discharged. Time spent 33 minutes on discharge Physical Exam Vital Signs: Temp Pulse Resp BP Pulse Ox 97.6 F 89 20 137/72 H 92 10/04/18 08:02 10/04/18 09:09 10/04/18 09:09 10/04/18 08:02 10/04/18 09:09 Intake & Output 10/03/18 10/04/18 10/05/18 06:59 06:59 06:59 Intake Total 800 1300 Balance 800 1300 Weight 197 lb 5.019 oz 197 lb 5.019 oz Exam: Patient is no acute distress Alert oriented to time place person No anxiety or depression Head: atraumatic normocephalic Pupils: are equal reactive Neck: is supple and trachea is central no lymphadenopathy No pharyngeal erythema or exudates Heart: Regular rate and rhythm, +1 edema bilaterally Lungs: Bilateral crackles Abdomen: nontender nondistended Neurological exam: unremarkable Musculoskeletal: No joint swelling or effusion chronic lower back pain and tenderness No suicidal or homicidal ideation Results Laboratory Results: 10/04/18 06:27 10/03/18 17:55 10/03/18 10/04/18 17:55 06:27 WBC 11.5 H RBC 4.81 Hgb 14.8 Hct 44.0 MCV 91 MCH 30.7 MCHC 33.6 RDW 14.3 H Plt Count 166 Sodium 143.2 Potassium 3.9 Chloride 100 Carbon Dioxide 32 H Anion Gap 11 BUN 25 H Creatinine 1.11 Est GFR ( Amer) > 60 Est GFR (Non-Af Amer) > 60 Glucose 137 H Calcium 9.4 09/30/18 19:30 Troponin I < 0.012 Impressions: Chest X-Ray 09/30/18 20:23 IMPRESSION: No evidence of acute cardiopulmonary disease. Qualifiers - * PATIENT BEING DISCHARGED WITH ANY OF THE FOLLOWING DIAGNOSIS: No Acute Heart Failure Is this a Heart Failure Patient?: No
[2018-10-04 15:28] VITALS: BP 109/88
== END 2018-10-04 16:03 | disposition home or self-care (01) | DRG 189 ==
LOC: ER 19:21 → EH 10-01 00:10 → 4S 10-01 03:20 → 5 10-02 10:22
PROVIDERS: ADMIT Emergency Medicine; ATTEND Emergency Medicine
DX: J96.22 Acute and chronic respiratory failure with hypercapnia (principal); J44.1 Chronic obstructive pulmonary disease with (acute) exacerbation; I10 Essential (primary) hypertension; K21.9 Gastro-esophageal reflux disease without esophagitis; F90.9 Attention-deficit hyperactivity disorder, unspecified type; F41.8 Other specified anxiety disorders; F31.9 Bipolar disorder, unspecified; F17.210 Nicotine dependence, cigarettes, uncomplicated; F10.20 Alcohol dependence, uncomplicated; Y90.9 Presence of alcohol in blood, level not specified; Z79.82 Long term (current) use of aspirin; Z79.51 Long term (current) use of inhaled steroids; Z79.52 Long term (current) use of systemic steroids; Z79.899 Other long term (current) drug therapy
CPT/HCPCS: 36415; 36600; 71045; 80048; 80053; 80061; 81001; 82803; 83036; 83735; 84439; 84443; 84481; 84484; 85025; 85027; 93005; 93010; 94640; 94660; 96361; 96365; 96375; 99291; J1644; J2300; J2920; J2930; J3475; J3490; J7030; J7120; J7512; J7614; J7620

== ENCOUNTER 2018-11-16 12:15 | Inpatient (IN) | payer MEDICARE ==
[2018-11-16] MEDS ORDERED: IPRATROPIUM/ALBUTEROL 0.5-2.5 MG/3 ML AMPUL NEB ONE ×2 (12:17→12:37)
[2018-11-16] MEDS ORDERED: ALBUTEROL SULFATE 0.083% NEB 2.5 MG/3 ML AMPUL NEB ONE ×2 (12:18→12:31)
[2018-11-16] MEDS ORDERED: METHYLPREDNISOLONE INJ 125 MG/2 ML SDV ONE (12:18)
[2018-11-16] MEDS ORDERED: MAGNESIUM SULFATE/D5W 2 GM/200 ML RTUPB IV ONE (12:22)
--- NOTE | 2018-11-16 12:30 | ER Document Report ---
ED General - General Stated Complaint: BREATHING PROBLEM Time Seen by Provider: 11/16/18 12:25 Primary Care Provider: JOSSE MORTENSEN MD [Primary Care Provider] - Follow up as needed TRAVEL OUTSIDE OF THE [place] IN LAST 30 DAYS: No - HPI Notes: Patient is a 68-year-old male that presents to the emergency department for chief complaint of shortness of breath. Patient reports history of COPD and began feeling short of breath yesterday. He states when he woke up this morning it had significantly worsened. He reports using 5 nebulized albuterol's at home prior to coming to the emergency room. He does wear 4 L nasal cannula oxygen at all time. Patient is not currently on steroids. He denies recent illness including fever, chills and congestion. He denies associated chest pain. He states this does feel similar to his prior COPD exacerbations before. He denies ever needing intubation for his COPD. Past Medical History: COPD bladder cancer Past Surgical History: Bladder cancer surgery Social History: Daily tobacco. Occasional alcohol. Denies drug use Family History: Reviewed and noncontributory for presenting illness Allergies: Reviewed, see documented allergy list. REVIEW OF SYSTEMS: CONSTITUTIONAL : No fever No chills No diaphoresis No recent illness EENT: No vision changes No congestion No sore throat CARDIOVASCULAR: No chest pain No palpitations RESPIRATORY: shortness of breath No cough difficulty breathing GASTROINTESTINAL: No abdominal pain No nausea No vomiting No diarrhea GENITOURINARY: No dysuria No hematuria No difficulty urinating MUSCULOSKELETAL: No back pain No leg pain No arm pain SKIN: No rashes No lesions LYMPHATIC: No swollen, enlarged glands. NEUROLOGICAL: No lightheadedness No headache No weakness No paresthesias PSYCHIATRIC: No anxiety No depression PHYSICAL EXAMINATION: Vital signs reviewed, nursing noted reviewed. GENERAL: Well-appearing, well-tiffanie moderate shed and in no acute distress. HEAD: Atraumatic, normocephalic. EYES: Eyes appear normal, extraocular movements intact, sclera anicteric, conjunctiva are normal. ENT: nares patent, oropharynx clear without exudates. Moist mucous membranes. NECK: Normal range of motion, supple without lymphadenopathy LUNGS: Moderate respiratory distress with tachypnea and accessory muscle use. Speaking in partial sentences. Lung sounds significantly diminished to auscultation bilateral and symmetric. HEART: Tachycardic rate and regular rhythm without murmurs ABDOMEN: Protuberant soft, nontender, normoactive bowel sounds. No rebound, guarding, or rigidity. No masses appreciated. EXTREMITIES: Nontender, good range of motion, trace pretibial edema bilaterally and symmetric. NEUROLOGICAL: No focal neurological deficits. Moves all extremities spontaneously Motor and sensory grossly intact on exam. PSYCH: Normal mood, normal affect. SKIN: Warm, Dry, normal turgor, no rashes or lesions noted on exposed skin - Related Data Allergies/Adverse Reactions: No Known Allergies Allergy (Verified 11/16/18 12:27) Past Medical History - Social History Smoking Status: Current Every Day Smoker Family History: CAD, DM, Hypertension - Past Medical History Cardiac Medical History: Reports: Hx Hypercholesterolemia Denies: Hx Coronary Artery Disease, Hx DVT, Hx Heart Attack, Hx Hypertension, Hx Pulmonary Embolism Pulmonary Medical History: Reports: Hx Asthma, Hx Bronchitis, Hx COPD, Hx Pneumonia, Hx Respiratory Failure, Hx Sleep Apnea Neurological Medical History: Denies: Hx Seizures Endocrine Medical History: Denies: Hx Diabetes Mellitus Type 1, Hx Diabetes Mellitus Type 2, Hx Hyperthyroidism, Hx Hypothyroidism Renal/ Medical History: Reports: Hx Kidney Stones. Denies: Hx Peritoneal Dialysis GI Medical History: Reports: Hx Gastroesophageal Reflux Disease, Hx Hiatal Hernia, Hx Ulcer. Denies: Hx Cirrhosis, Hx Hepatitis Musculoskeletal Medical History: Reports Hx Arthritis, Denies Hx Gout Skin Medical History: Denies Hx Eczema, Denies Hx Psoriasis Psychiatric Medical History: Reports: Hx Attention Deficit Hyperactivity Disorder, Hx Bipolar Disorder, Hx Depression Infectious Medical History: Denies: Hx Hepatitis Past Surgical History: Reports: Hx Appendectomy, Hx Cholecystectomy, Hx Genitourinary Surgery - removal of bladder cancer x2, Other - Surgery for bladder cancer - Immunizations Hx Diphtheria, Pertussis, Tetanus Vaccination: Yes Hx Pneumococcal Vaccination: 05/16/11 Physical Exam - Vital signs Vitals: Resp Pulse Ox 26 H 89 L 11/16/18 12:23 11/16/18 12:23 Course - Re-evaluation Re-evalutation: Vitals reviewed. Nursing notes reviewed. Patient presented to the emergency room in acute respiratory distress. He has significant amount of accessory muscle use. Patient use 5 albuterol treatments at home prior to arrival. He was ordered DuoNeb, Solu-Medrol, and magnesium as well as placed on BiPAP at presentation to the ED. 11/16/18 13:31 On reevaluation patient appears much better. He is still using accessory muscles and is tachypneic but respirations are much less labored. He states he is feeling better. His chest x-ray shows no underlying pneumonia or other acute cardiopulmonary process. Patient's lab work does show a leukocytosis. He has not had fever and denies being on steroids recently. Without source of infect ion antibiotics will be held. Patient does have a history of bladder cancer and I have ordered CTA to evaluate for possible underlying pulmonary embolism however patient is unable to lie flat because of his respiratory status currently. My suspicion for PE is low and I do not feel prophylactic ant icoagulation is currently indicated since patient is improving. His ABG shows hypercapnia with compensation. Patient's care was discussed with Dr. Mccord who will admit him for further medical management. He is in agreement with this plan of care. Laboratory 11/16/18 11/16/18 11/16/18 12:18 12:18 12:18 WBC 22.0 H RBC 5.03 Hgb 15.6 Hct 46.7 MCV 93 MCH 31.0 MCHC 33.5 RDW 14.5 H Plt Count 170 Total Counted 100 Seg Neutrophils % Not Reportable Seg Neuts % (Manual) 90 H Lymphocytes % Not Reportable Lymphocytes % (Manual) 4 L Monocytes % Not Reportable Monocytes % (Manual) 4 Eosinophils % Not Reportable Eosinophils % (Manual) 2 Basophils % Not Reportable Basophils % (Manual) 0 Absolute Neutrophils Not Reportable Abs Neuts (Manual) 19.8 H Absolute Lymphocytes Not Reportable Abs Lymphs (Manual) 0.9 Absolute Monocytes Not Reportable Abs Monocytes (Manual) 0.9 Absolute Eosinophils Not Reportable Absolute Eos (Manual) 0.4 Absolute Basophils Not Reportable Abs Basophils (Manual) 0.0 Toxic Vacuolation PRESENT Platelet Comment ADEQUATE Anisocytosis SLIGHT Carbonic Acid HCO3/H2CO3 Ratio ABG pH ABG pCO2 ABG pO2 ABG HCO3 ABG Total CO2 ABG O2 Saturation ABG Base Excess FiO2 Sodium 139.2 Potassium 4.5 Chloride 101 Carbon Dioxide 29 Anion Gap 9 BUN 23 H Creatinine 0.90 Est GFR ( Amer) > 60 Est GFR (Non-Af Amer) > 60 Glucose 106 Calcium 8.8 Total Bilirubin 0.7 Direct Bilirubin 0.2 Neonat Total Bilirubin Not Reportable Neonat Direct Bilirubin Not Reportable Neonat Indirect Bili Not Reportable AST 27 ALT 33 Alkaline Phosphatase 66 Troponin I < 0.012 NT-Pro-B Natriuret Pep 36 Total Protein 6.8 Albumin 4.1 11/16/18 12:45 WBC RBC Hgb Hct MCV MCH MCHC RDW Plt Count Total Counted Seg Neutrophils % Seg Neuts % (Manual) Lymphocytes % Lymphocytes % (Manual) Monocytes % Monocytes % (Manual) Eosinophils % Eosinophils % (Manual) Basophils % Basophils % (Manual) Absolute Neutrophils Abs Neuts (Manual) Absolute Lymphocytes Abs Lymphs (Manual) Absolute Monocytes Abs Monocytes (Manual) Absolute Eosinophils Absolute Eos (Manual) Absolute Basophils Abs Basophils (Manual) Toxic Vacuolation Platelet Comment Anisocytosis Carbonic Acid 1.64 H HCO3/H2CO3 Ratio 19:1 ABG pH 7.38 ABG pCO2 54.4 H ABG pO2 187.3 H ABG HCO3 31.2 H ABG Total CO2 32.8 H ABG O2 Saturation 99.2 H ABG Base Excess 4.4 FiO2 40% Sodium Potassium Chloride Carbon Dioxide Anion Gap BUN Creatinine Est GFR ( Amer) Est GFR (Non-Af Amer) Glucose Calcium Total Bilirubin Direct Bilirubin Neonat Total Bilirubin Neonat Direct Bilirubin Neonat Indirect Bili AST ALT Alkaline Phosphatase Troponin I NT-Pro-B Natriuret Pep Total Protein Albumin Chest X-Ray 11/16/18 00:00 IMPRESSION: NO ACUTE RADIOGRAPHIC FINDING IN THE CHEST. - Vital Signs Vital signs: Temp Pulse Resp BP Pulse Ox 34 H 146/81 H 100 11/16/18 12:30 11/16/18 12:25 11/16/18 12:57 - Laboratory Result Diagrams: 11/16/18 12:18 11/16/18 12:18 Laboratory results interpreted by me: 11/16/18 11/16/18 11/16/18 12:18 12:18 12:45 WBC 22.0 H RDW 14.5 H Seg Neuts % (Manual) 90 H Lymphocytes % (Manual) 4 L Abs Neuts (Manual) 19.8 H Carbonic Acid 1.64 H ABG pCO2 54.4 H ABG pO2 187.3 H ABG HCO3 31.2 H ABG Total CO2 32.8 H ABG O2 Saturation 99.2 H BUN 23 H - EKG Interpretation by Me Additional EKG results interpreted by me: 11/16/18 13:20 1316: Sinus tachycardia, rate 119, normal axis, no significant change from prior. Critical Care Note - Critical Care Note Total time excluding time spent on procedures (mins): 35 Comments: Critical care time 35 exclusive from separate billable procedures for a patient requiring complex medical decision making, and high potential for clinical deterioration. Time spent obtaining history from patient or surrogate, discussions with consultants, development of treatment plan with patient or surrogate, evaluation of patient's response to treatment, examination of patient, ordering and performing treatments and interventions, ordering and review of laboratory studies, re-evaluation of patient's condition, ordering and review of radiographic studies and review of old charts Discharge - Discharge Clinical Impression: COPD exacerbation, Acute and chronic respiratory failure with hypercapnia Leukocytosis Qualifiers: Leukocytosis type: bandemia Qualified Code(s): D72.825 - Bandemia Condition: Good Disposition: ADMITTED INPATIENT Admitting Provider: Suri (Hospitalist) Unit Admitted: IMCU Referrals: JOSSE MORTENSEN MD [Primary Care Provider] - Follow up as needed
[2018-11-16 12:36] LABS: HEMATOCRIT 46.7 % (37.9-51.0); HEMOGLOBIN 15.6 g/dL (13.5-17.0); MEAN CORPUSCULAR HGB CONC 33.5 g/dL (32.0-36.0); MEAN CORPUSCULAR VOLUME 93 fl (80-97); PLATELET COUNT 170 10^3/uL (150-450); RED BLOOD COUNT 5.03 10^6/uL (4.35-5.55); RED CELL DISTRIBUTION WIDTH 14.5 % (11.5-14.0)
[2018-11-16] MEDS ORDERED: METHYLPREDNISOLONE INJ 125 MG/2 ML SDV IV ONE (12:36)
--- NOTE | 2018-11-16 12:40 | RADIOLOGY REPORT (SQ) ---
EXAM DESCRIPTION: CHEST SINGLE VIEW COMPLETED DATE/TIME: 11/16/2018 12:31 pm REASON FOR STUDY: SOB COMPARISON: 09/30/2018 EXAM PARAMETERS: NUMBER OF VIEWS: One view. TECHNIQUE: Single frontal radiographic view of the chest acquired. RADIATION DOSE: NA LIMITATIONS: None. FINDINGS: LUNGS AND PLEURA: No opacities, masses or pneumothorax. No pleural effusion. MEDIASTINUM AND HILAR STRUCTURES: No masses. Contour normal. HEART AND VASCULAR STRUCTURES: Heart normal in size. Normal vasculature. BONES: No acute findings. HARDWARE: None in the chest. OTHER: No other significant finding. IMPRESSION: NO ACUTE RADIOGRAPHIC FINDING IN THE CHEST. TECHNICAL DOCUMENTATION: JOB ID: [id number] [employer]- All Rights Reserved Reading location - IP/workstation name: [email or web address]
[2018-11-16 12:52] LABS: ALANINE AMINOTRANSFERASE 33 U/L (21-72); ALBUMIN 4.1 g/dL (3.5-5.0); ALKALINE PHOSPHATASE 66 U/L (38-126); ANION GAP 9 (5-19); ASPARTATE AMINO TRANSFERASE 27 U/L (17-59); BILIRUBIN,DIRECT 0.2 mg/dL (0.0-0.4); BILIRUBIN,TOTAL 0.7 mg/dL (0.2-1.3); BLOOD UREA NITROGEN 23 mg/dL (7-20); CALCIUM 8.8 mg/dL (8.4-10.2); CARBON DIOXIDE 29 mmol/L (22-30); CHLORIDE 101 mmol/L (98-107); GLUCOSE 106 mg/dL (75-110); POTASSIUM 4.5 mmol/L (3.6-5.0); SODIUM 139.2 mmol/L (137-145); TOTAL PROTEIN 6.8 g/dL (6.3-8.2)
[2018-11-16 12:56] LABS: ABSOLUTE LYMPHOCYTES# (MANUAL) 0.9 10^3/uL (0.5-4.7); ABSOLUTE MONOCYTES # (MANUAL) 0.9 10^3/uL (0.1-1.4); BASOPHILS % (MANUAL) 0 % (0-2); EOSINOPHILS % (MANUAL) 2 % (0-6); LYMPHOCYTES % (MANUAL) 4 % (13-45); MONOCYTES % (MANUAL) 4 % (3-13); SEGMENTED NEUTROPHILS % (MAN) 90 % (42-78); TOTAL CELLS COUNTED 100
[2018-11-16 12:57] LABS: ANISOCYTOSIS SLIGHT; PLATELET COMMENT ADEQUATE; TOXIC VACUOLATION PRESENT
[2018-11-16 13:04] LABS: NT PRO BNP 36 pg/mL (5-900)
[2018-11-16 13:11] LABS: TROPONIN I < 0.012 ng/mL
[2018-11-16 13:16] LABS: ARTERIAL BLOOD BASE EXCESS 4.4 mmol/L; ARTERIAL BLOOD H2CO3 1.64 mmol/L (1.05-1.35); ARTERIAL BLOOD HCO3 31.2 mmol/L (20-24); ARTERIAL BLOOD O2 SATURATION 99.2 % (94-98); ARTERIAL BLOOD PCO2 54.4 mmHg (35-45); ARTERIAL BLOOD PH 7.38 (7.35-7.45); ARTERIAL BLOOD PO2 187.3 mmHg (80-100); ARTERIAL BLOOD TOTAL CO2 32.8 mmol/L (23-27)
[2018-11-16 13:18] LABS: ARTERIAL BLOOD FIO2 40%
--- NOTE | 2018-11-16 14:36 | RADIOLOGY REPORT (SQ) ---
EXAM DESCRIPTION: CTA CHEST COMPLETED DATE/TIME: 11/16/2018 2:19 pm REASON FOR STUDY: PE study COMPARISON: 07/29/2018 TECHNIQUE: CT scan of the chest performed using helical scanning technique with dynamic intravenous contrast injection. Images reviewed with lung, soft tissue and bone windows. Reconstructed coronal and sagittal MPR images reviewed. Additional 3 dimensional post-processing performed to develop Maximal Intensity Projection images (IA P). All images stored on PACS. All CT scanners at this facility use dose modulation, iterative reconstruction, and/or weight based d osing when appropriate to reduce radiation dose to as low as reasonably achievable (ALARA). [facility]: Dose Right [facility]: CareDose [facility]: Dose Right [facility]: Teradose 4D [facility]: CoPromote CONTRAST TYPE AND DOSE: contrast/concentration: Isovue 350.00 mg/ml; Total Contrast Delivered: 61.0 ml; Total Saline Delivered: 80.0 ml Contrast bolus adequate for pulmonary arteries and aorta. RENAL FUNCTION: BUN 23 creatinine 0.9 RADIATION DOSE: CT Rad equipment meets quality standard of care and radiation dose reduction techniq ues were employed. CTDIvol: 9.9 - 20.0 mGy. DLP: 696 mGy-cm. . LIMITATIONS: None. FINDINGS: LUNGS AND PLEURA: No masses, infiltrates, or pneumothorax. No pleural effusions or pleura l calcifications. AORTA AND GREAT VESSELS: No aneurysm. Contrast bolus not optimized for the aorta. HEART: No pericardial effusion. No significant coronary artery calcifications. PULMONARY ARTERIES: No emboli visualized in the main pulmonary arteries or the segmental branches. HILAR AND MEDIASTINAL STRUCTURES: No identified masses or abnormal nodes. HARDWARE: None in the chest. UPPER ABDOMEN: No significant findings. Limited exam. THYROID AND OTHER SOFT TISSUES: No masses. No adenopathy. BONES: No acute or significant finding. 3D MIPS: Confirm above findings. OTHER: No other significant finding. IMPRESSION: NORMAL CTA OF THE CHEST. NO PULMONARY EMBOLI. COMMENT: Quality ID # [id number]: Final reports with documentation of one or more dose reduction techniques (e.g., Automated exposure control, adjustment of the mA and/or kV according to patient size, use of iterative reconstruction technique) TECHNICAL DOCUMENTATION: JOB ID: [id number] [employer]- All Rights Reserved Reading location - IP/workstation name: [email or web address]
[2018-11-16] MEDS: IPRATROPIUM/ALBUTEROL 0.5-2.5 MG/3 ML AMPUL NEB SCH ×3 (15:30→23:19)
--- NOTE | 2018-11-16 15:33 | PDOC H&P ---
History of Present Illness Admission Date/PCP: 11/16/18 13:44 JOSSE MORTENSEN MD Patient complains of: SOB History of Present Illness: MANI FLYNN is a 68 year old male with a past medical history of chronic respiratory failure, COPD on 4 L nasal cannula at home and history of bladder cancer who presented with shortness of breath and wheezing. Patient was apparently at her baseline other day until yesterday when he developed worsening shortness of breath and wheezing at home. Does have some nonproductive cough. Family reports he had some chills but no fever. Denies recent sick contacts or recent travel. Denies chest pain. Upon presentation, he had significantly decreased breath sounds with some wheezing. He was placed on BiPAP and was given IV steroids and breathing treatments which did help with shortness of breath. Past Medical History Cardiac Medical History: Reports: Hyperlipidema Denies: Coronary Artery Disease, DVT, Myocardial Infarction, Hypertension, Pulmonary Embolism Pulmonary Medical History: Reports: Asthma, Bronchitis, Chronic Obstructive Pulmonary Disease (COPD), Pneumonia, Respiratory Failure, Sleep Apnea Neurological Medical History: Denies: Seizures Endocrine Medical History: Denies: Diabetes Mellitus Type 1, Diabetes Mellitus Type 2, Hyperthyroidism, Hypothyroidism GI Medical History: Reports: Gastroesophageal Reflux Disease, Hiatal Hernia Denies: Cirrhosis, Hepatitis Musculoskeltal Medical History: Reports: Arthritis Denies: Gout Skin Medical History: Denies: Eczema, Psoriasis Psychiatric Medical History: Reports: Attention Deficit Hyperactivity Disorder, Bipolar Disorder, Depression Hematology: Denies: Anemia, Bleeding Tendencies Past Surgical History Past Surgical History: Reports: Appendectomy, Cholecystectomy, Other - Surgery for bladder cancer Social History Smoking Status: Current Every Day Smoker Frequency of Alcohol Use: Heavy Hx Recreational Drug Use: No Drugs: None Hx Prescription Drug Abuse: No Family History Family History: CAD, DM, Hypertension Parental Family History Reviewed: Yes - No premature CAD Children Family History Reviewed: No Sibling(s) Family History Reviewed.: No Medication/Allergy Allergies/Adverse Reactions: No Known Allergies Allergy (Verified 11/16/18 12:27) Review of Systems All systems: reviewed and no additional remarkable complaints except as stated - As mentioned in HPI Physical Exam Vital Signs: Temp Pulse Resp BP Pulse Ox 34 H 146/81 H 100 11/16/18 12:30 11/16/18 12:25 11/16/18 12:57 General appearance: PRESENT: mild distress Head exam: PRESENT: atraumatic, normocephalic Eye exam: PRESENT: conjunctiva pink, EOMI, PERRLA. ABSENT: scleral icterus Ear exam: PRESENT: normal external ear exam Mouth exam: PRESENT: moist, tongue midline Neck exam: ABSENT: carotid bruit, JVD, lymphadenopathy, thyromegaly Respiratory exam: PRESENT: decreased breath sounds, rhonchi, wheezes. ABSENT: rales Cardiovascular exam: PRESENT: RRR. ABSENT: diastolic murmur, rubs, systolic murmur Pulses: PRESENT: normal dorsalis pedis pul Vascular exam: PRESENT: normal capillary refill GI/Abdominal exam: PRESENT: normal bowel sounds, soft. ABSENT: distended, guarding, mass, organolmegaly, rebound, tenderness Rectal exam: PRESENT: deferred Extremities exam: PRESENT: full ROM. ABSENT: calf tenderness, clubbing, pedal edema Neurological exam: PRESENT: alert, awake, oriented to person, oriented to place, oriented to time, oriented to situation, CN II-XII grossly intact. ABSENT: motor sensory deficit Results Laboratory Results: 11/16/18 12:18 11/16/18 12:18 11/16/18 11/16/18 11/16/18 12:18 12:18 12:45 WBC 22.0 H RBC 5.03 Hgb 15.6 Hct 46.7 MCV 93 MCH 31.0 MCHC 33.5 RDW 14.5 H Plt Count 170 Seg Neutrophils % Not Reportable Lymphocytes % Not Reportable Monocytes % Not Reportable Eosinophils % Not Reportable Basophils % Not Reportable Absolute Neutrophils Not Reportable Absolute Lymphocytes Not Reportable Absolute Monocytes Not Reportable Absolute Eosinophils Not Reportable Absolute Basophils Not Reportable Carbonic Acid 1.64 H HCO3/H2CO3 Ratio 19:1 ABG pH 7.38 ABG pCO2 54.4 H ABG pO2 187.3 H ABG HCO3 31.2 H ABG O2 Saturation 99.2 H ABG Base Excess 4.4 FiO2 40% Sodium 139.2 Potassium 4.5 Chloride 101 Carbon Dioxide 29 Anion Gap 9 BUN 23 H Creatinine 0.90 Est GFR ( Amer) > 60 Est GFR (Non-Af Amer) > 60 Glucose 106 Calcium 8.8 Total Bilirubin 0.7 AST 27 ALT 33 Alkaline Phosphatase 66 Total Protein 6.8 Albumin 4.1 11/16/18 12:18 Troponin I < 0.012 NT-Pro-B Natriuret Pep 36 Impressions: Chest X-Ray 11/16/18 00:00 IMPRESSION: NO ACUTE RADIOGRAPHIC FINDING IN THE CHEST. Assessment and Plan - Diagnosis (1) Acute and chronic respiratory failure with hypercapnia Is this a current diagnosis for this admission?: Yes Plan: Secondary to COPD exacerbation. Currently saturating well on BiPAP. (2) COPD exacerbation Is this a current diagnosis for this admission?: Yes Plan: Start Solu-Medrol 40 mg IV every 8. Scheduled breathing treatments. Add azithromycin. (3) History of bladder cancer Is this a current diagnosis for this admission?: Yes Plan: In remission. - Time Time Spent with patient: 25-34 minutes
--- NOTE | 2018-11-16 15:38 | ADVANCED CARE ---
- Diagnosis (1) Acute and chronic respiratory failure with hypercapnia Diagnosis Current: Yes (2) COPD exacerbation Diagnosis Current: Yes (3) Leukocytosis Diagnosis Current: Yes Attendance: Discussed with patient and family including and son at bedside. He says he is a full code and prefers chest compressions, defibrillation and mechanical ventilation if the need arises. He says he has not thought about long-term ventilation yet and will further discuss this later with his family. He says his is his surrogate medical decision maker. Resuscitation Status: Full Code
[2018-11-16] MEDS: NORMAL SALINE 1000 ML 1,000 ML IV PRN (16:28)
[2018-11-16] MEDS: AZITHROMYCIN 500 MG in DEXTROSE 5%-WATER 250 ML IV SCH (17:04)
--- NOTE | 2018-11-16 18:37 | EKG REPORT ---
SEVERITY:- OTHERWISE NORMAL ECG - SINUS TACHYCARDIA BORDERLINE RIGHT AXIS DEVIATION BORDERLINE ST ELEVATION, INFERIOR LEADS REC REPEAT EKG : Confirmed by: Giselle Martinez 16-Nov-2018 18:36:35
[2018-11-16] MEDS: METHYLPREDNISOLONE INJ 40 MG/1 ML SDV IV SCH (21:46)
[2018-11-16] MEDS: HEPARIN SOD (PORCINE) 5,000 UNIT/ML 1 ML SYRINGE SUBCUT SCH (21:47)
[2018-11-17] MEDS: IPRATROPIUM/ALBUTEROL 0.5-2.5 MG/3 ML AMPUL NEB SCH ×5 (03:47→20:03)
[2018-11-17] MEDS: METHYLPREDNISOLONE INJ 40 MG/1 ML SDV IV SCH ×3 (05:46→21:22)
[2018-11-17] MEDS: NORMAL SALINE 1000 ML 1,000 ML IV PRN (06:00)
[2018-11-17] MEDS: HEPARIN SOD (PORCINE) 5,000 UNIT/ML 1 ML SYRINGE SUBCUT SCH ×2 (09:57→21:22)
[2018-11-17] MEDS ORDERED: AZITHROMYCIN INJ 500 MG VIAL IV SCH (10:00)
[2018-11-17] MEDS: DIAZEPAM 5 MG TABLET PO PRN ×2 (10:58→17:28)
[2018-11-17] MEDS: GUAIFENESIN 600 MG TABLET.SA PO SCH ×2 (10:58→17:24)
[2018-11-17] MEDS: POLYETHYLENE GLYCOL 3350 POWDER 17 GM/1 PACKET PO SCH (10:58)
--- NOTE | 2018-11-17 13:56 | PDOC PROGRESS REPORT ---
Subjective Progress Note for:: 11/17/18 Subjective:: MANI FLYNN is a 68 year old male with a past medical history of chronic respiratory failure, COPD on 4 L nasal cannula at home and history of bladder cancer who presented with shortness of breath and wheezing. He was admitted for COPD exacerbation and requiring BiPAP. 11/17: No acute event overnight. He is compliant with BiPAP last night. Upon encounter, he is on nasal cannula. He still does appear a little short of breath but definitely less labored. He says that his shortness of breath has improved from yesterday but he feels he is far from his baseline. Reason For Visit: ACUTE ON CHRONIC HYPOXIC RESPIRATORY FAILURE, Physical Exam Vital Signs: Temp Pulse Resp BP Pulse Ox 98.4 F 87 27 H 112/84 93 11/17/18 12:07 11/17/18 12:07 11/17/18 12:07 11/17/18 12:07 11/17/18 12:07 Intake & Output 11/16/18 11/17/18 11/18/18 06:59 06:59 06:59 Intake Total 1590 Output Total 850 Balance 740 Weight 216 lb 0.848 oz General appearance: PRESENT: mild distress Head exam: PRESENT: atraumatic, normocephalic Eye exam: PRESENT: conjunctiva pink, EOMI, PERRLA. ABSENT: scleral icterus Ear exam: PRESENT: normal external ear exam Mouth exam: PRESENT: moist, tongue midline Neck exam: ABSENT: carotid bruit, JVD, lymphadenopathy, thyromegaly Respiratory exam: PRESENT: decreased breath sounds, wheezes. ABSENT: rales, rhonchi Cardiovascular exam: PRESENT: RRR. ABSENT: diastolic murmur, rubs, systolic murmur Pulses: PRESENT: normal dorsalis pedis pul GI/Abdominal exam: PRESENT: normal bowel sounds, soft. ABSENT: distended, guarding, mass, organolmegaly, rebound, tenderness Rectal exam: PRESENT: deferred Extremities exam: PRESENT: full ROM. ABSENT: calf tenderness, clubbing, pedal edema Neurological exam: PRESENT: alert, awake, oriented to person, oriented to place, oriented to time, oriented to situation, CN II-XII grossly intact. ABSENT: motor sensory deficit Results Laboratory Results: 11/16/18 12:18 11/16/18 12:18 11/16/18 12:18 Troponin I < 0.012 NT-Pro-B Natriuret Pep 36 Impressions: Chest X-Ray 11/16/18 00:00 IMPRESSION: NO ACUTE RADIOGRAPHIC FINDING IN THE CHEST. Chest/Abdomen CTA 11/16/18 12:26 IMPRESSION: NORMAL CTA OF THE CHEST. NO PULMONARY EMBOLI. Assessment and Plan - Diagnosis (1) Acute and chronic respiratory failure with hypercapnia Is this a current diagnosis for this admission?: Yes Plan: Secondary to COPD exacerbation. Currently saturating well on nasal cannula. (2) COPD exacerbation Is this a current diagnosis for this admission?: Yes Plan: 11/16: Start Solu-Medrol 40 mg IV every 8. Scheduled breathing treatments. Add azithromycin. 11/17: Continue current management with IV steroids, breathing treatments and antibiotics. (3) Leukocytosis Qualifiers: Leukocytosis type: bandemia Qualified Code(s): D72.825 - Bandemia Is this a current diagnosis for this admission?: Yes Plan: Recheck CBC. - Time Time Spent with patient: 25-34 minutes
[2018-11-17] MEDS: AZITHROMYCIN 500 MG in DEXTROSE 5%-WATER 250 ML IV SCH (17:23)
[2018-11-18] MEDS: IPRATROPIUM/ALBUTEROL 0.5-2.5 MG/3 ML AMPUL NEB SCH ×7 (00:12→23:40)
[2018-11-18] MEDS: DIAZEPAM 5 MG TABLET PO PRN ×4 (00:48→23:41)
[2018-11-18] MEDS: METHYLPREDNISOLONE INJ 40 MG/1 ML SDV IV SCH ×3 (05:37→21:12)
[2018-11-18 06:04] LABS: ABSOLUTE LYMPHOCYTES (AUTO) 1.3 10^3/uL (0.5-4.7); ABSOLUTE MONOCYTES (AUTO) 0.8 10^3/uL (0.1-1.4); ABSOLUTE NEUT (AUTO) 10.4 10^3/uL (1.7-8.2); BASOPHILS % (AUTO) 0.1 % (0-2); HEMOGLOBIN 13.8 g/dL (13.5-17.0); LYMPHOCYTES % (AUTO) 10.6 % (13-45); MEAN CORPUSCULAR HGB CONC 33.5 g/dL (32.0-36.0); MEAN CORPUSCULAR VOLUME 92 fl (80-97); MONOCYTES % (AUTO) 6.2 % (3-13); PLATELET COUNT 150 10^3/uL (150-450); RED BLOOD COUNT 4.44 10^6/uL (4.35-5.55); RED CELL DISTRIBUTION WIDTH 14.7 % (11.5-14.0); SEGMENTED NEUTROPHILS % (AUTO) 83.1 % (42-78); TOTAL CELLS COUNTED % (AUTO) 100 %; WHITE BLOOD COUNT 12.5 10^3/uL (4.0-10.5)
[2018-11-18] MEDS: HEPARIN SOD (PORCINE) 5,000 UNIT/ML 1 ML SYRINGE SUBCUT SCH ×2 (09:13→21:12)
[2018-11-18] MEDS: POLYETHYLENE GLYCOL 3350 POWDER 17 GM/1 PACKET PO SCH (09:13)
[2018-11-18] MEDS: GUAIFENESIN 600 MG TABLET.SA PO SCH ×2 (09:13→17:37)
[2018-11-18] MEDS: FUROSEMIDE 20 MG TABLET PO SCH (09:15)
[2018-11-18 10:20] LABS: FOLATE 13.9 ng/mL (>2.76)
--- NOTE | 2018-11-18 11:28 | PDOC PROGRESS REPORT ---
Subjective Progress Note for:: 11/18/18 Subjective:: MANI FLYNN is a 68 year old male with a past medical history of chronic respiratory failure, COPD on 4 L nasal cannula at home and history of bladder cancer who presented with shortness of breath and wheezing. He was admitted for COPD exacerbation and requiring BiPAP. 11/17: He is compliant with BiPAP last night. Upon encounter, he is on nasal cannula. He still does appear a little short of breath but definitely less labored. He says that his shortness of breath has improved from yesterday but he feels he is far from his baseline. 11/18: No acute event overnight. He still appears short of breath but continues to feel better. He is not at his baseline yet and says he got short of breath when he tried to go to the bathroom. He had multiple prior admissions for COPD exacerbation and appears it usually took 4-5 days before he returned to his baseline. Reason For Visit: ACUTE ON CHRONIC HYPOXIC RESPIRATORY FAILURE, Physical Exam Vital Signs: Temp Pulse Resp BP Pulse Ox 97.5 F 80 16 116/75 93 11/18/18 07:19 11/18/18 09:18 11/18/18 09:18 11/18/18 07:19 11/18/18 09:18 Intake & Output 11/17/18 11/18/18 11/19/18 06:59 06:59 06:59 Intake Total 1590 2693 Output Total 850 1575 Balance 740 1118 Weight 216 lb 0.848 oz 216 lb 14.958 oz General appearance: PRESENT: no acute distress, well-developed, well-nourished Head exam: PRESENT: atraumatic, normocephalic Eye exam: PRESENT: conjunctiva pink, EOMI, PERRLA. ABSENT: scleral icterus Ear exam: PRESENT: normal external ear exam Mouth exam: PRESENT: moist, tongue midline Neck exam: ABSENT: carotid bruit, JVD, lymphadenopathy, thyromegaly Respiratory exam: PRESENT: decreased breath sounds, rhonchi, wheezes. ABSENT: rales Cardiovascular exam: PRESENT: RRR. ABSENT: diastolic murmur, rubs, systolic murmur Pulses: PRESENT: normal dorsalis pedis pul GI/Abdominal exam: PRESENT: normal bowel sounds, soft. ABSENT: distended, guarding, mass, organolmegaly, rebound, tenderness Rectal exam: PRESENT: deferred Extremities exam: PRESENT: full ROM. ABSENT: calf tenderness, clubbing, pedal edema Neurological exam: PRESENT: alert, awake, oriented to person, oriented to place, oriented to time, oriented to situation, CN II-XII grossly intact. ABSENT: motor sensory deficit Results Laboratory Results: 11/18/18 05:22 11/16/18 12:18 11/18/18 11/18/18 05:22 05:22 WBC 12.5 H RBC 4.44 Hgb 13.8 Hct 41.0 MCV 92 MCH 31.0 MCHC 33.5 RDW 14.7 H Plt Count 150 Seg Neutrophils % 83.1 H Lymphocytes % 10.6 L Monocytes % 6.2 Eosinophils % 0.0 Basophils % 0.1 Absolute Neutrophils 10.4 H Absolute Lymphocytes 1.3 Absolute Monocytes 0.8 Absolute Eosinophils 0.0 Absolute Basophils 0.0 Vitamin B12 254.0 Folate 13.90 11/16/18 11/18/18 12:18 05:22 Troponin I < 0.012 NT-Pro-B Natriuret Pep 36 63 Impressions: Chest X-Ray 11/16/18 00:00 IMPRESSION: NO ACUTE RADIOGRAPHIC FINDING IN THE CHEST. Chest/Abdomen CTA 11/16/18 12:26 IMPRESSION: NORMAL CTA OF THE CHEST. NO PULMONARY EMBOLI. Assessment and Plan - Diagnosis (1) Acute and chronic respiratory failure with hypercapnia Is this a current diagnosis for this admission?: Yes Plan: Secondary to COPD exacerbation. Currently saturating well on nasal cannula. 11/18: Slowly improving. Continue current management. (2) COPD exacerbation Is this a current diagnosis for this admission?: Yes Plan: 11/16: Start Solu-Medrol 40 mg IV every 8. Scheduled breathing treatments. Add azithromycin. 11/17: Continue current management with IV steroids, breathing treatments and antibiotics. 11/18: Slowly improving. Continue current management. (3) Leukocytosis Qualifiers: Leukocytosis type: bandemia Qualified Code(s): D72.825 - Bandemia Is this a current diagnosis for this admission?: Yes Plan: Resolving. - Time Time Spent with patient: 25-34 minutes
[2018-11-18] MEDS: AZITHROMYCIN 500 MG in DEXTROSE 5%-WATER 250 ML IV SCH (17:37)
[2018-11-19] MEDS: IPRATROPIUM/ALBUTEROL 0.5-2.5 MG/3 ML AMPUL NEB SCH ×6 (04:08→23:22)
[2018-11-19] MEDS: METHYLPREDNISOLONE INJ 40 MG/1 ML SDV IV SCH ×3 (05:28→22:33)
[2018-11-19 06:28] LABS: ABSOLUTE LYMPHOCYTES (AUTO) 1.4 10^3/uL (0.5-4.7); ABSOLUTE MONOCYTES (AUTO) 0.8 10^3/uL (0.1-1.4); ABSOLUTE NEUT (AUTO) 12.6 10^3/uL (1.7-8.2); BASOPHILS % (AUTO) 0.2 % (0-2); HEMATOCRIT 41.6 % (37.9-51.0); LYMPHOCYTES % (AUTO) 9.3 % (13-45); MEAN CORPUSCULAR HEMOGLOBIN 30.9 pg (27.0-33.4); MEAN CORPUSCULAR HGB CONC 33.6 g/dL (32.0-36.0); MEAN CORPUSCULAR VOLUME 92 fl (80-97); MONOCYTES % (AUTO) 5.2 % (3-13); PLATELET COUNT 152 10^3/uL (150-450); RED BLOOD COUNT 4.52 10^6/uL (4.35-5.55); RED CELL DISTRIBUTION WIDTH 14.4 % (11.5-14.0); SEGMENTED NEUTROPHILS % (AUTO) 85.3 % (42-78); TOTAL CELLS COUNTED % (AUTO) 100 %; WHITE BLOOD COUNT 14.8 10^3/uL (4.0-10.5)
[2018-11-19 07:02] LABS: ANION GAP 6 (5-19); BLOOD UREA NITROGEN 26 mg/dL (7-20); CALCIUM 8.6 mg/dL (8.4-10.2); CARBON DIOXIDE 28 mmol/L (22-30); CHLORIDE 104 mmol/L (98-107); GLUCOSE 151 mg/dL (75-110); POTASSIUM 4.7 mmol/L (3.6-5.0); SODIUM 137.7 mmol/L (137-145)
[2018-11-19] MEDS: POLYETHYLENE GLYCOL 3350 POWDER 17 GM/1 PACKET PO SCH (09:53)
[2018-11-19] MEDS: DIAZEPAM 5 MG TABLET PO PRN ×2 (09:53→22:34)
[2018-11-19] MEDS: HEPARIN SOD (PORCINE) 5,000 UNIT/ML 1 ML SYRINGE SUBCUT SCH ×2 (09:53→22:34)
[2018-11-19] MEDS: GUAIFENESIN 600 MG TABLET.SA PO SCH ×2 (09:54→17:16)
[2018-11-19] MEDS: FUROSEMIDE 20 MG TABLET PO SCH (09:54)
[2018-11-19] MEDS: LORAZEPAM INJ 2 MG/1 ML VIAL IV PRN ×4 (13:34→23:15)
--- NOTE | 2018-11-19 13:38 | PDOC PROGRESS REPORT ---
Subjective Progress Note for:: 11/19/18 Subjective:: MANI FLYNN is a 68 year old male with a past medical history of chronic respiratory failure, COPD on 4 L nasal cannula at home and history of bladder cancer who presented with shortness of breath and wheezing. He was admitted for COPD exacerbation and requiring BiPAP. 11/17: He is compliant with BiPAP last night. Upon encounter, he is on nasal cannula. He still does appear a little short of breath but definitely less labored. He says that his shortness of breath has improved from yesterday but he feels he is far from his baseline. 11/18: No acute event overnight. He still appears short of breath but continues to feel better. He is not at his baseline yet and says he got short of breath when he tried to go to the bathroom. He had multiple prior admissions for COPD exacerbation and appears it usually took 4-5 days before he returned to his baseline. 11/19: He says is shortness of breath continued to improve today. However he says he feels anxious. He did develop tremors and admit to drinking liquor every 2 to 3 days. He is showing signs of alcohol withdrawal. Reason For Visit: ACUTE ON CHRONIC HYPOXIC RESPIRATORY FAILURE, Physical Exam Vital Signs: Temp Pulse Resp BP Pulse Ox 97.5 F 80 27 H 148/92 H 99 11/19/18 11:30 11/19/18 11:30 11/19/18 11:30 11/19/18 11:30 11/19/18 11:30 Intake & Output 11/18/18 11/19/18 11/20/18 06:59 06:59 06:59 Intake Total 2693 1747 591 Output Total 1575 250 Balance 1118 1497 591 Weight 216 lb 14.958 oz 216 lb 14.958 oz General appearance: PRESENT: no acute distress, well-developed, well-nourished Head exam: PRESENT: atraumatic, normocephalic Eye exam: PRESENT: conjunctiva pink, EOMI, PERRLA. ABSENT: scleral icterus Ear exam: PRESENT: normal external ear exam Mouth exam: PRESENT: moist, tongue midline Neck exam: ABSENT: carotid bruit, JVD, lymphadenopathy, thyromegaly Respiratory exam: PRESENT: rhonchi, wheezes. ABSENT: rales Cardiovascular exam: PRESENT: RRR. ABSENT: diastolic murmur, rubs, systolic murmur Pulses: PRESENT: normal dorsalis pedis pul GI/Abdominal exam: PRESENT: normal bowel sounds, soft. ABSENT: distended, guarding, mass, organolmegaly, rebound, tenderness Rectal exam: PRESENT: deferred Neurological exam: PRESENT: alert, awake, oriented to person, oriented to place, oriented to time, oriented to situation, CN II-XII grossly intact. ABSENT: motor sensory deficit Results Laboratory Results: 11/19/18 06:03 11/19/18 06:03 11/19/18 11/19/18 06:03 06:03 WBC 14.8 H RBC 4.52 Hgb 14.0 Hct 41.6 MCV 92 MCH 30.9 MCHC 33.6 RDW 14.4 H Plt Count 152 Seg Neutrophils % 85.3 H Lymphocytes % 9.3 L Monocytes % 5.2 Eosinophils % 0.0 Basophils % 0.2 Absolute Neutrophils 12.6 H Absolute Lymphocytes 1.4 Absolute Monocytes 0.8 Absolute Eosinophils 0.0 Absolute Basophils 0.0 Sodium 137.7 Potassium 4.7 Chloride 104 Carbon Dioxide 28 Anion Gap 6 BUN 26 H Creatinine 0.88 Est GFR ( Amer) > 60 Est GFR (Non-Af Amer) > 60 Glucose 151 H Calcium 8.6 11/16/18 11/18/18 12:18 05:22 Troponin I < 0.012 NT-Pro-B Natriuret Pep 36 63 Impressions: Chest X-Ray 11/16/18 00:00 IMPRESSION: NO ACUTE RADIOGRAPHIC FINDING IN THE CHEST. Chest/Abdomen CTA 11/16/18 12:26 IMPRESSION: NORMAL CTA OF THE CHEST. NO PULMONARY EMBOLI. Assessment and Plan - Diagnosis (1) Acute and chronic respiratory failure with hypercapnia Is this a current diagnosis for this admission?: Yes Plan: Secondary to COPD exacerbation. Currently saturating well on nasal cannula. 11/19: Slowly improving. Continue current management. (2) Alcohol withdrawal Is this a current diagnosis for this admission?: Yes Plan: Start Ativan as needed. We will add thiamine and folate supplements. Will check magnesium as well. (3) COPD exacerbation Is this a current diagnosis for this admission?: Yes Plan: 11/16: Start Solu-Medrol 40 mg IV every 8. Scheduled breathing treatments. Add azithromycin. 11/17: Continue current management with IV steroids, breathing treatments and antibiotics. 11/19: Slowly improving. Continue current management. (4) Leukocytosis Qualifiers: Leukocytosis type: bandemia Qualified Code(s): D72.825 - Bandemia Is this a current diagnosis for this admission?: Yes Plan: Resolving. - Time Time Spent with patient: 25-34 minutes
[2018-11-19] MEDS: AZITHROMYCIN 500 MG in DEXTROSE 5%-WATER 250 ML IV SCH (17:15)
[2018-11-19] MEDS: FOLIC ACID 1 MG TABLET PO SCH (17:15)
[2018-11-19] MEDS: THIAMINE HCL 100 MG TABLET PO SCH (17:15)
[2018-11-20] MEDS: LORAZEPAM INJ 2 MG/1 ML VIAL IV PRN ×5 (02:44→21:20)
[2018-11-20] MEDS: IPRATROPIUM/ALBUTEROL 0.5-2.5 MG/3 ML AMPUL NEB SCH ×6 (04:03→23:37)
[2018-11-20] MEDS: METHYLPREDNISOLONE INJ 40 MG/1 ML SDV IV SCH ×2 (06:23→21:20)
[2018-11-20] MEDS: DIAZEPAM 5 MG TABLET PO PRN (06:31)
[2018-11-20] MEDS: FUROSEMIDE 20 MG TABLET PO SCH (09:22)
[2018-11-20] MEDS: THIAMINE HCL 100 MG TABLET PO SCH (09:22)
[2018-11-20] MEDS: HEPARIN SOD (PORCINE) 5,000 UNIT/ML 1 ML SYRINGE SUBCUT SCH ×2 (09:22→21:22)
[2018-11-20] MEDS: FOLIC ACID 1 MG TABLET PO SCH (09:22)
[2018-11-20] MEDS: GUAIFENESIN 600 MG TABLET.SA PO SCH ×2 (09:22→16:59)
[2018-11-20] MEDS: POLYETHYLENE GLYCOL 3350 POWDER 17 GM/1 PACKET PO SCH (09:23)
--- NOTE | 2018-11-20 12:53 | PDOC PROGRESS REPORT ---
Subjective Progress Note for:: 11/20/18 Subjective:: MANI FLYNN is a 68 year old male with a past medical history of chronic respiratory failure, COPD on 4 L nasal cannula at home and history of bladder cancer who presented with shortness of breath and wheezing. He was admitted for COPD exacerbation and requiring BiPAP. 11/17: He is compliant with BiPAP last night. Upon encounter, he is on nasal cannula. He still does appear a little short of breath but definitely less labored. He says that his shortness of breath has improved from yesterday but he feels he is far from his baseline. 11/18: No acute event overnight. He still appears short of breath but continues to feel better. He is not at his baseline yet and says he got short of breath when he tried to go to the bathroom. He had multiple prior admissions for COPD exacerbation and appears it usually took 4-5 days before he returned to his baseline. 11/19: He says his shortness of breath continued to improve today. However he says he feels anxious. He did develop tremors and admit to drinking liquor every 2 to 3 days. He is showing signs of alcohol withdrawal. 11/20: Patient required Ativan q3 hourly overnight. Upon encounter, he appears tr emulous and has had tremors. He does say his shortness of breath continued to improve but he continues to feel anxious. He says he drinks vodka 2-3 times a week. Wheezing has slightly improved today. He is saturating well on nasal cannula. Reason For Visit: ACUTE ON CHRONIC HYPOXIC RESPIRATORY FAILURE, Physical Exam Vital Signs: Temp Pulse Resp BP Pulse Ox 97.4 F 85 20 116/73 95 11/19/18 23:20 11/20/18 12:00 11/20/18 12:00 11/20/18 04:01 11/20/18 12:00 Intake & Output 11/19/18 11/20/18 11/21/18 06:59 06:59 06:59 Intake Total 1747 1337 Output Total 250 1225 Balance 1497 112 Weight 216 lb 14.958 oz 187 lb 2.759 oz General appearance: PRESENT: no acute distress, well-developed, well-nourished Head exam: PRESENT: atraumatic, normocephalic Eye exam: PRESENT: conjunctiva pink, EOMI, PERRLA. ABSENT: scleral icterus Ear exam: PRESENT: normal external ear exam Mouth exam: PRESENT: moist, tongue midline Neck exam: ABSENT: carotid bruit, JVD, lymphadenopathy, thyromegaly Respiratory exam: PRESENT: rhonchi, wheezes. ABSENT: rales Cardiovascular exam: PRESENT: RRR. ABSENT: diastolic murmur, rubs, systolic murmur Pulses: PRESENT: normal dorsalis pedis pul GI/Abdominal exam: PRESENT: normal bowel sounds, soft. ABSENT: distended, guarding, mass, organolmegaly, rebound, tenderness Rectal exam: PRESENT: deferred Neurological exam: PRESENT: alert, awake, oriented to person, oriented to place, oriented to time, oriented to situation, CN II-XII grossly intact, other. ABSENT: motor sensory deficit Results Laboratory Results: 11/19/18 06:03 11/19/18 06:03 11/19/18 06:03 Magnesium 2.3 11/16/18 11/18/18 12:18 05:22 Troponin I < 0.012 NT-Pro-B Natriuret Pep 36 63 Impressions: Chest X-Ray 11/16/18 00:00 IMPRESSION: NO ACUTE RADIOGRAPHIC FINDING IN THE CHEST. Chest/Abdomen CTA 11/16/18 12:26 IMPRESSION: NORMAL CTA OF THE CHEST. NO PULMONARY EMBOLI. Assessment and Plan - Diagnosis (1) Acute and chronic respiratory failure with hypercapnia Is this a current diagnosis for this admission?: Yes Plan: Secondary to COPD exacerbation. Currently saturating well on nasal cannula. 11/19: Slowly improving. Continue current management. 11/20: Improving. Decrease solumedrol to 40 mg q12h. (2) Alcohol withdrawal Is this a current diagnosis for this admission?: Yes Plan: 11/19: Start Ativan as needed. We will add thiamine and folate supplements. Will check magnesium as well. 11/20: Continue Ativan prn. (3) COPD exacerbation Is this a current diagnosis for this admission?: Yes Plan: 11/16: Start Solu-Medrol 40 mg IV every 8. Scheduled breathing treatments. Add azithromycin. 11/17: Continue current management with IV steroids, breathing treatments and antibiotics. 11/19: Slowly improving. Continue current management. 11/20: Decrease solumedrol to 40 mg q12. (4) Leukocytosis Qualifiers: Leukocytosis type: bandemia Qualified Code(s): D72.825 - Bandemia Is this a current diagnosis for this admission?: Yes Plan: Resolving. - Time Time Spent with patient: 25-34 minutes
[2018-11-20] MEDS ORDERED: AZITHROMYCIN 250 MG TABLET ONE (16:59)
[2018-11-20] MEDS: AZITHROMYCIN 250 MG TABLET PO SCH (16:59)
[2018-11-21] MEDS: DIAZEPAM 5 MG TABLET PO PRN (03:25)
[2018-11-21] MEDS ORDERED: BENZOCAINE/MENTHOL SORE THROAT LOZENGE BUCCAL PRN (03:42)
[2018-11-21] MEDS: IPRATROPIUM/ALBUTEROL 0.5-2.5 MG/3 ML AMPUL NEB SCH ×5 (04:06→20:49)
[2018-11-21] MEDS: LORAZEPAM INJ 2 MG/1 ML VIAL IV PRN ×3 (09:15→19:44)
[2018-11-21] MEDS: GUAIFENESIN 600 MG TABLET.SA PO SCH ×2 (09:51→17:02)
[2018-11-21] MEDS: FUROSEMIDE 20 MG TABLET PO SCH (09:51)
[2018-11-21] MEDS: THIAMINE HCL 100 MG TABLET PO SCH (09:51)
[2018-11-21] MEDS: POLYETHYLENE GLYCOL 3350 POWDER 17 GM/1 PACKET PO SCH (09:52)
[2018-11-21] MEDS: FOLIC ACID 1 MG TABLET PO SCH (09:52)
[2018-11-21] MEDS: HEPARIN SOD (PORCINE) 5,000 UNIT/ML 1 ML SYRINGE SUBCUT SCH ×2 (09:52→22:16)
[2018-11-21] MEDS: METHYLPREDNISOLONE INJ 40 MG/1 ML SDV IV SCH ×2 (09:52→22:16)
--- NOTE | 2018-11-21 14:05 | PDOC PROGRESS REPORT ---
Subjective Progress Note for:: 11/21/18 Subjective:: Mr. Real is a pleasant 60-year-old gentleman with past medical history of chronic rest jarad failure, COPD on 4 L nasal cannula at home and a history of bladder cancer. Patient was admitted on 11/20/2017 for a COPD exacerbation requiring BiPAP. Patient also having some anxiety and required Ativan several nights ago. At this time patient appears relaxed he is on BiPAP. He does state shortness of breath is improving but he still has that his uncomfortable. Elmer nt also states bilateral lower extremity leg pain and numbness for which pain is worse when he walks and improves when he rests suggestive of intermittent claudication. He has no other complaints at this time. Reason For Visit: ACUTE ON CHRONIC HYPOXIC RESPIRATORY FAILURE, Physical Exam Vital Signs: Temp Pulse Resp BP Pulse Ox 97.9 F 91 20 139/81 H 97 11/21/18 07:55 11/21/18 12:23 11/21/18 12:23 11/21/18 07:55 11/21/18 12:23 Intake & Output 11/20/18 11/21/18 11/22/18 06:59 06:59 06:59 Intake Total 1337 612 Output Total 1225 Balance 112 612 Weight 84.9 kg 95.9 kg General appearance: PRESENT: cooperative, mild distress, well-developed, well- nourished Head exam: PRESENT: atraumatic, normocephalic Neck exam: ABSENT: carotid bruit, JVD, lymphadenopathy, thyromegaly Respiratory exam: PRESENT: accessory muscle use, decreased breath sounds, rales, tachypnea Cardiovascular exam: PRESENT: RRR. ABSENT: diastolic murmur, rubs, systolic murmur Pulses: PRESENT: normal dorsalis pedis pul Vascular exam: PRESENT: normal capillary refill GI/Abdominal exam: PRESENT: normal bowel sounds, soft. ABSENT: distended, guarding, mass, organolmegaly, rebound, tenderness Extremities exam: PRESENT: pedal edema, +2 edema Neurological exam: PRESENT: alert, awake, oriented to person, oriented to place, oriented to time, oriented to situation, CN II-XII grossly intact. ABSENT: motor sensory deficit Psychiatric exam: PRESENT: appropriate affect, normal mood. ABSENT: homicidal ideation, suicidal ideation Skin exam: PRESENT: dry, intact, warm. ABSENT: cyanosis, rash Results Laboratory Results: 11/19/18 06:03 11/19/18 06:03 11/16/18 11/18/18 12:18 05:22 Troponin I < 0.012 NT-Pro-B Natriuret Pep 36 63 Impressions: Chest X-Ray 11/16/18 00:00 IMPRESSION: NO ACUTE RADIOGRAPHIC FINDING IN THE CHEST. Chest/Abdomen CTA 11/16/18 12:26 IMPRESSION: NORMAL CTA OF THE CHEST. NO PULMONARY EMBOLI. Assessment and Plan - Diagnosis (1) Acute and chronic respiratory failure with hypercapnia Is this a current diagnosis for this admission?: Yes Plan: Patient continues on BiPAP. He has developed bilateral basilar rales that extend two thirds way up. At this time and want to obtain a chest x-ray as his last was on admission and depending on findings will give extra Lasix IV today. Patient still has slight wheeze and mild pressure distress. Continue BiPAP make change in plan of care based on x-ray findings. (2) Alcohol withdrawal Is this a current diagnosis for this admission?: Yes Plan: Continue PRN Ativan (3) COPD exacerbation Is this a current diagnosis for this admission?: Yes Plan: Continue Solu-Medrol 40 mg every 12 at this time duo nebs and albuterol. Will most likely switch Solu-Medrol to prednisone tomorrow on rounds. Antibiotics continue patient also continues on BiPAP. Will follow may change plan of care based on future x-ray findings. (4) Leg pain, bilateral Is this a current diagnosis for this admission?: Yes Plan: Patient states bilateral leg pain with ambulation as well as numbness. Patient states his pain is improved when he rests. This is suggestive of intermittent claudication. I will obtain a bilateral venous Doppler study to rule out claudication. - Time Time Spent with patient: 15-24 minutes - Inpatient Certification Medical Necessity: Need for Nebulizer Therapy and Monitoring of Response, Risk of Complication if Not Cared For in Hospital
--- NOTE | 2018-11-21 15:01 | RADIOLOGY REPORT (SQ) ---
EXAM DESCRIPTION: CHEST SINGLE VIEW COMPLETED DATE/TIME: 11/21/2018 2:22 pm REASON FOR STUDY: increased shortness of breath COMPARISON: AP chest 11/16/2018, 09/30/2018, 09/20/2018, 07/28/2018 EXAM PARAMETERS: NUMBER OF VIEWS: One view. TECHNIQUE: Single frontal radiographic view of the chest acquired. RADIATION DOSE: NA LIMITATIONS: None. FINDINGS: LUNGS AND PLEURA: Minimal left basilar bandlike atelectasis. Lungs are otherwise well inflated and clear. No pleural effusion or pneumothorax. MEDIASTINUM AND HILAR STRUCTURES: No masses. Contour normal. HEART AND VASCULAR STRUCTURES: Heart normal in size. Normal vasculature. BONES: No acute findings. HARDWARE: None in the chest. OTHER: No other significant finding. IMPRESSION: Minimal left basilar atelectasis unchanged from prior studies TECHNICAL DOCUMENTATION: JOB ID: [id number] [employer]- All Rights Reserved Reading location - IP/workstation name: [email or web address]
[2018-11-21] MEDS: AZITHROMYCIN 250 MG TABLET PO SCH (17:01)
[2018-11-22] MEDS: IPRATROPIUM/ALBUTEROL 0.5-2.5 MG/3 ML AMPUL NEB SCH ×7 (00:34→23:59)
[2018-11-22] MEDS: LORAZEPAM INJ 2 MG/1 ML VIAL IV PRN (07:29)
[2018-11-22] MEDS: FUROSEMIDE 20 MG TABLET PO SCH (11:14)
[2018-11-22] MEDS: GUAIFENESIN 600 MG TABLET.SA PO SCH ×2 (11:14→18:17)
[2018-11-22] MEDS: POLYETHYLENE GLYCOL 3350 POWDER 17 GM/1 PACKET PO SCH (11:14)
[2018-11-22] MEDS: FOLIC ACID 1 MG TABLET PO SCH (11:14)
[2018-11-22] MEDS: METHYLPREDNISOLONE INJ 40 MG/1 ML SDV IV SCH (11:15)
[2018-11-22] MEDS: THIAMINE HCL 100 MG TABLET PO SCH (11:15)
[2018-11-22] MEDS: HEPARIN SOD (PORCINE) 5,000 UNIT/ML 1 ML SYRINGE SUBCUT SCH ×2 (11:15→21:52)
--- NOTE | 2018-11-22 11:37 | PDOC PROGRESS REPORT ---
Subjective Progress Note for:: 11/22/18 Subjective:: Mr. Real is a pleasant 60-year-old gentleman with past medical history of chronic rest jarad failure, COPD on 4 L nasal cannula at home and a history of bladder cancer. Patient was admitted on 11/20/2017 for a COPD exacerbation requiring BiPAP. Patient also having some anxiety and required Ativan several nights ago. At this time patient appears relaxed he is on BiPAP. He does state shortness of breath is improving but he still has that his uncomfortable. Patie nt also states bilateral lower extremity leg pain and numbness for which pain is worse when he walks and improves when he rests suggestive of intermittent claudication. He has no other complaints at this time. 11/22/2018-patient sitting on's the chair at this time with no acute distress. Patient on nasal cannula. States leg still hurt bilaterally waiting arterial Doppler. COPD improving although chest x-ray from yesterday shows atelectasis in bases. We will give incentive spirometry and encourage. No other complaints at this time. Reason For Visit: ACUTE ON CHRONIC HYPOXIC RESPIRATORY FAILURE, Physical Exam Vital Signs: Temp Pulse Resp BP Pulse Ox 97.7 F 93 20 126/82 H 93 11/22/18 08:11 11/22/18 08:26 11/22/18 08:26 11/22/18 08:11 11/22/18 08:26 Intake & Output 11/21/18 11/22/18 11/23/18 06:59 06:59 06:59 Intake Total 612 598 Balance 612 598 Weight 95.9 kg 97.9 kg General appearance: PRESENT: no acute distress, well-developed, well-nourished Head exam: PRESENT: atraumatic, normocephalic Neck exam: ABSENT: carotid bruit, JVD, lymphadenopathy, thyromegaly Respiratory exam: PRESENT: decreased breath sounds, tachypnea, wheezes Cardiovascular exam: PRESENT: RRR. ABSENT: diastolic murmur, rubs, systolic murmur Pulses: PRESENT: normal dorsalis pedis pul Vascular exam: PRESENT: normal capillary refill GI/Abdominal exam: PRESENT: normal bowel sounds, soft. ABSENT: distended, guarding, mass, organolmegaly, rebound, tenderness Extremities exam: PRESENT: full ROM. ABSENT: calf tenderness, clubbing, pedal edema Neurological exam: PRESENT: alert, awake, oriented to person, oriented to place, oriented to time, oriented to situation, CN II-XII grossly intact. ABSENT: motor sensory deficit Psychiatric exam: PRESENT: appropriate affect, normal mood. ABSENT: homicidal ideation, suicidal ideation Skin exam: PRESENT: dry, intact, warm. ABSENT: cyanosis, rash Results Laboratory Results: 11/19/18 06:03 11/19/18 06:03 11/16/18 19:00 Blood Blood Culture - Final NO GROWTH IN 5 DAYS 11/16/18 19:33 Blood Blood Culture - Final NO GROWTH IN 5 DAYS 11/16/18 11/18/18 12:18 05:22 Troponin I < 0.012 NT-Pro-B Natriuret Pep 36 63 Impressions: Chest/Abdomen CTA 11/16/18 12:26 IMPRESSION: NORMAL CTA OF THE CHEST. NO PULMONARY EMBOLI. Chest X-Ray 11/21/18 00:00 IMPRESSION: Minimal left basilar atelectasis unchanged from prior studies Assessment and Plan - Diagnosis (1) Acute and chronic respiratory failure with hypercapnia Is this a current diagnosis for this admission?: Yes Plan: Patient continues on BiPAP. He has developed bilateral basilar rales that extend two thirds way up. At this time and want to obtain a chest x-ray as his last was on admission and depending on findings will give extra Lasix IV today. Patient still has slight wheeze and mild pressure distress. Continue BiPAP make change in plan of care based on x-ray findings. 11/22/2018-continues BiPAP. Rales have improved from yesterday although he continues to have scattered wheezing throughout. Chest x-ray showed bilateral atelectasis. We will give incentive spirometry and encourage use. Distress has improved from yesterday. Continue BiPAP. Continue supplemental oxygen. (2) Alcohol withdrawal Is this a current diagnosis for this admission?: Yes (3) COPD exacerbation Is this a current diagnosis for this admission?: Yes Plan: Continue Solu-Medrol 40 mg every 12 at this time duo nebs and albuterol. Will most likely switch Solu-Medrol to prednisone tomorrow on rounds. Antibiotics continue patient also continues on BiPAP. Will follow may change plan of care based on future x-ray findings. 11/22/2018-showing some improvement today. Will DC IV Solu-Medrol placed on prednisone 60 mg p.o. daily. Antibiotics are to continue we will continue BiPAP. Chest x-ray showed atelectasis incentive spirometry is encouraged. (4) Leg pain, bilateral Is this a current diagnosis for this admission?: Yes Plan: Patient states bilateral leg pain with ambulation as well as numbness. Patient states his pain is improved when he rests. This is suggestive of intermittent claudication. I will obtain a bilateral venous Doppler study to rule out claudication. 11/22/2018-awaiting arterial Doppler. (5) Alcohol withdrawal Is this a current diagnosis for this admission?: Yes Plan: 11/22/2018-at this time I DC'd PRN Ativan. I will leave PRN Valium p.o. as needed. - Time Time Spent with patient: 15-24 minutes - Inpatient Certification Medical Necessity: Other - Patient continues with BiPAP as well as every 4 nebulizer treatments and steroid use for his COPD exacerbation as well as acute on chronic respiratory failure with hypercapnia.
[2018-11-22] MEDS: DIAZEPAM 5 MG TABLET PO PRN ×2 (13:33→19:54)
[2018-11-22] MEDS: AZITHROMYCIN 250 MG TABLET PO SCH (18:18)
[2018-11-23] MEDS: DIAZEPAM 5 MG TABLET PO PRN ×4 (02:02→21:18)
[2018-11-23] MEDS: IPRATROPIUM/ALBUTEROL 0.5-2.5 MG/3 ML AMPUL NEB SCH ×5 (04:02→19:36)
[2018-11-23 05:27] LABS: HEMATOCRIT 44.5 % (37.9-51.0); HEMOGLOBIN 14.8 g/dL (13.5-17.0); MEAN CORPUSCULAR HEMOGLOBIN 30.9 pg (27.0-33.4); MEAN CORPUSCULAR HGB CONC 33.4 g/dL (32.0-36.0); MEAN CORPUSCULAR VOLUME 93 fl (80-97); PLATELET COUNT 132 10^3/uL (150-450); RED CELL DISTRIBUTION WIDTH 14.7 % (11.5-14.0); WHITE BLOOD COUNT 17.4 10^3/uL (4.0-10.5)
[2018-11-23 05:52] LABS: ANION GAP 8 (5-19); BLOOD UREA NITROGEN 22 mg/dL (7-20); CALCIUM 9.1 mg/dL (8.4-10.2); CARBON DIOXIDE 33 mmol/L (22-30); CHLORIDE 97 mmol/L (98-107); GLUCOSE 140 mg/dL (75-110); SODIUM 137.7 mmol/L (137-145)
--- NOTE | 2018-11-23 06:46 | Progress Note Acknowledgement ---
Progress Note Acknowledgement Progess Note Acknowledgement: I, the undersigned member of the medical staff with appropriate privileges and with supervisory authority over Wilbur Cummings, a [facility] practice allied health professional, acknowledge that I have reviewed the progress notes entered on this patient, and in my professional judgment believe that the assessment made and/or any care evidenced was appropriate
[2018-11-23] MEDS: HEPARIN SOD (PORCINE) 5,000 UNIT/ML 1 ML SYRINGE SUBCUT SCH ×2 (10:04→21:19)
[2018-11-23] MEDS: PREDNISONE 20 MG TABLET PO SCH (10:09)
[2018-11-23] MEDS: POLYETHYLENE GLYCOL 3350 POWDER 17 GM/1 PACKET PO SCH (10:09)
[2018-11-23] MEDS: THIAMINE HCL 100 MG TABLET PO SCH (10:10)
[2018-11-23] MEDS: FOLIC ACID 1 MG TABLET PO SCH (10:10)
[2018-11-23] MEDS: FUROSEMIDE 20 MG TABLET PO SCH (10:10)
[2018-11-23] MEDS: GUAIFENESIN 600 MG TABLET.SA PO SCH ×2 (10:10→21:18)
--- NOTE | 2018-11-23 10:46 | PDOC PROGRESS REPORT ---
Subjective Progress Note for:: 11/23/18 Reason For Visit: ACUTE ON CHRONIC HYPOXIC RESPIRATORY FAILURE, Physical Exam Vital Signs: Temp Pulse Resp BP Pulse Ox 97.9 F 102 H 24 H 122/76 95 11/23/18 08:26 11/23/18 08:26 11/23/18 08:26 11/23/18 08:26 11/23/18 08:26 Intake & Output 11/22/18 11/23/18 11/24/18 06:59 06:59 06:59 Intake Total 598 2388 Balance 598 2388 Weight 97.9 kg 97.6 kg General appearance: PRESENT: no acute distress Neck exam: ABSENT: carotid bruit, JVD, lymphadenopathy, thyromegaly Respiratory exam: PRESENT: accessory muscle use, decreased breath sounds, wheezes Cardiovascular exam: PRESENT: RRR. ABSENT: diastolic murmur, rubs, systolic murmur Pulses: PRESENT: +1 pedal pulses bilateral GI/Abdominal exam: PRESENT: normal bowel sounds, soft. ABSENT: distended, guarding, mass, organolmegaly, rebound, tenderness Extremities exam: PRESENT: full ROM. ABSENT: calf tenderness, clubbing, pedal edema Neurological exam: PRESENT: alert, awake, oriented to person, oriented to place, oriented to time, oriented to situation, CN II-XII grossly intact. ABSENT: motor sensory deficit Psychiatric exam: PRESENT: appropriate affect, normal mood. ABSENT: homicidal ideation, suicidal ideation Skin exam: PRESENT: dry, intact, warm. ABSENT: cyanosis, rash Results Laboratory Results: 11/23/18 04:38 11/23/18 04:38 11/23/18 11/23/18 04:38 04:38 WBC 17.4 H RBC 4.80 Hgb 14.8 Hct 44.5 MCV 93 MCH 30.9 MCHC 33.4 RDW 14.7 H Plt Count 132 L Sodium 137.7 Potassium 4.0 Chloride 97 L Carbon Dioxide 33 H Anion Gap 8 BUN 22 H Creatinine 0.92 Est GFR ( Amer) > 60 Est GFR (Non-Af Amer) > 60 Glucose 140 H Calcium 9.1 11/16/18 11/18/18 12:18 05:22 Troponin I < 0.012 NT-Pro-B Natriuret Pep 36 63 Impressions: Chest/Abdomen CTA 11/16/18 12:26 IMPRESSION: NORMAL CTA OF THE CHEST. NO PULMONARY EMBOLI. Chest X-Ray 11/21/18 00:00 IMPRESSION: Minimal left basilar atelectasis unchanged from prior studies Assessment and Plan - Diagnosis (1) Acute and chronic respiratory failure with hypercapnia Is this a current diagnosis for this admission?: Yes Plan: Patient continues on BiPAP. He has developed bilateral basilar rales that extend two thirds way up. At this time and want to obtain a chest x-ray as his last was on admission and depending on findings will give extra Lasix IV today. Patient still has slight wheeze and mild pressure distress. Continue BiPAP make change in plan of care based on x-ray findings. 11/22/2018-continues BiPAP. Rales have improved from yesterday although he continues to have scattered wheezing throughout. Chest x-ray showed bilateral atelectasis. We will give incentive spirometry and encourage use. Distress has improved from yesterday. Continue BiPAP. Continue supplemental oxygen. 11/23/2018-continue BiPAP. I have consulted Dr. Mcdaniel pulmonology. I will await his recommendations. Patient does have trilogy at home. Continue incentive spirometry. Patient still unable to talk in complete sentences but I think he is close to being back to his baseline. Continue submental oxygen. (2) Alcohol withdrawal Is this a current diagnosis for this admission?: Yes Plan: Continue PRN Ativan 11/23/2018-stable at this time but will continue PRN Ativan as needed. (3) COPD exacerbation Is this a current diagnosis for this admission?: Yes Plan: Continue Solu-Medrol 40 mg every 12 at this time duo nebs and albuterol. Will most likely switch Solu-Medrol to prednisone tomorrow on rounds. Antibiotics continue patient also continues on BiPAP. Will follow may change plan of care based on future x-ray findings. 11/22/2018-showing some improvement today. Will DC IV Solu-Medrol placed on prednisone 60 mg p.o. daily. Antibiotics are to continue we will continue BiPAP. Chest x-ray showed atelectasis incentive spirometry is encouraged. 11/23/2018-continue to show improvement although he still has some scattered wheezing. This is improved from yesterday. He continues on antibiotics and BiPAP at night. Awaiting pulmonology consultation. (4) Leg pain, bilateral Is this a current diagnosis for this admission?: Yes Plan: Patient states bilateral leg pain with ambulation as well as numbness. Patient states his pain is improved when he rests. This is suggestive of intermittent claudication. I will obtain a bilateral venous Doppler study to rule out claudication. 11/22/2018-awaiting arterial Doppler. 11/23/2018-Doppler taken. Awaiting report. (5) Alcohol withdrawal Is this a current diagnosis for this admission?: Yes Plan: 11/22/2018-at this time I DC'd PRN Ativan. I will leave PRN Valium p.o. as needed. 11/23/2018-stable. Not required medications for withdrawal. We will continue to monitor. - Time Time Spent with patient: 15-24 minutes - Inpatient Certification Medical Necessity: Other - Continues to be unable to speak in complete sentences. Continues wheezes. Discussed with the recruitment director states 1 more day until patient should be released.
--- NOTE | 2018-11-23 12:17 | XCELERA REPORT ---
[address] [address] Lower Extremity Arterial Evaluation Name: MANI FLYNN Age: 68 yrs Gender: Male : 1950 Patient Status: Inpatient Patient Location: [address] [place], [place] [id number] Study Date: 11/22/2018 03:22 PM Procedure: A color flow and duplex scan of the lower extremity arteries was performed bilaterally with velocity and waveform anaylsis. Reason For Study: intermittent claudication Ordering Physician: TOM ARRIAGA Performed By: Barbi Escalante Measurements and Calculations Right Left SEO EXECUTIVE PSV 54.5 88.0 cm/sec Prox PFA PSV -56.9 -55.3 cm/sec Prox SFA PSV 54.5 64.1 cm/sec Mid SFA PSV -44.7 -93.3 cm/sec Dist SFA PSV -40.1 -64.3 cm/sec Prox Pop A PSV 49.7 83.0 cm/sec Dist ELEUTERIO PSV 17.9 62.9 cm/sec Dist PHILANTHROPY OFFICER PSV 53.3 64.3 cm/sec Fredo Pedis PSV -28.2 76.1 cm/sec Right Side Arterial Evaluation low normal velocity and monophasic waveforms, mild spectral broadening noted from the Common Femoral artery to the infrageniculate vessels . Somewhat more attenuation in the infrageniculate vessels. No focal stenosis noted. Ankle Brachial index 0.84 . Left Side Arterial Evaluation Normal velocity and triphasic waveforms noted from the Common Femoral artery to the infrageniculate vessels . Ankle Brachial index 1.08. Interpretation Summary Moderate hemodynamically significant lesions in the right lower extremity only, on duplex imaging, at rest. No hemodynamically significant lesions in the left lower extremity only, on duplex imaging, at rest. Duplex findings of inflow disease on right , normal left. DAGOBERTO's are concordant on left, normal. Suggesting mild disease only the right, which is non concordant with the duplex findings. : TOM ARRIAGA > Estiven Gifford
[2018-11-24] MEDS: IPRATROPIUM/ALBUTEROL 0.5-2.5 MG/3 ML AMPUL NEB SCH ×4 (00:03→12:58)
[2018-11-24] MEDS: DIAZEPAM 5 MG TABLET PO PRN ×2 (03:50→10:17)
[2018-11-24 05:20] LABS: HEMATOCRIT 42.8 % (37.9-51.0); HEMOGLOBIN 14.2 g/dL (13.5-17.0); MEAN CORPUSCULAR HEMOGLOBIN 30.7 pg (27.0-33.4); MEAN CORPUSCULAR HGB CONC 33.1 g/dL (32.0-36.0); MEAN CORPUSCULAR VOLUME 93 fl (80-97); PLATELET COUNT 134 10^3/uL (150-450); RED CELL DISTRIBUTION WIDTH 14.7 % (11.5-14.0); WHITE BLOOD COUNT 16.6 10^3/uL (4.0-10.5)
[2018-11-24 05:41] LABS: ANION GAP 8 (5-19); BLOOD UREA NITROGEN 22 mg/dL (7-20); CARBON DIOXIDE 30 mmol/L (22-30); CHLORIDE 98 mmol/L (98-107); GLUCOSE 162 mg/dL (75-110); POTASSIUM 4.2 mmol/L (3.6-5.0); SODIUM 136.1 mmol/L (137-145)
[2018-11-24] MEDS: HEPARIN SOD (PORCINE) 5,000 UNIT/ML 1 ML SYRINGE SUBCUT SCH (10:08)
[2018-11-24] MEDS: POLYETHYLENE GLYCOL 3350 POWDER 17 GM/1 PACKET PO SCH (10:16)
[2018-11-24] MEDS: GUAIFENESIN 600 MG TABLET.SA PO SCH (10:16)
[2018-11-24] MEDS: THIAMINE HCL 100 MG TABLET PO SCH (10:17)
[2018-11-24] MEDS: PREDNISONE 20 MG TABLET PO SCH (10:17)
[2018-11-24] MEDS: FUROSEMIDE 20 MG TABLET PO SCH (10:17)
[2018-11-24] MEDS: FOLIC ACID 1 MG TABLET PO SCH (10:17)
--- NOTE | 2018-11-24 12:40 | PDOC DISCHARGE SUMMARY ---
General - Admit/Disc Date/PCP Admission Date/Primary Care Provider: 11/17/18 16:02 JOSSE MORTENSEN MD Discharge Date: 11/24/18 - Discharge Diagnosis (1) Acute and chronic respiratory failure with hypercapnia Is this a current diagnosis for this admission?: Yes (2) Alcohol withdrawal Is this a current diagnosis for this admission?: Yes (3) COPD exacerbation Is this a current diagnosis for this admission?: Yes (4) Leg pain, bilateral Is this a current diagnosis for this admission?: Yes (5) Alcohol withdrawal Is this a current diagnosis for this admission?: Yes - Additional Information Resuscitation Status: Full Code Discharge Diet: As Tolerated Discharge Activity: Activity As Tolerated Prescriptions: Albuterol Sulfate [Ventolin 0.083% Neb 2.5 mg/3 mL Ampul] 1 vial NEB RTQ6HP PRN #90 vial.neb PRN Reason: Shortness Of Breath Prednisone 10 mg PO DAILY 6 Days tablet Home Medications: Albuterol Sulfate [Proair HFA Inhalation Aerosol 8.5 gm MDI] 2 puff IH Q6HP PRN 11/17/18 Ammonium Lactate [Lac-Hydrin 12% Lotion 225Gm/Bottle] 1 applic TP DAILY 11/17/18 Budesonide/Formoterol Fumarate [Symbicort HFA 160-4.5 mcg Inhaler 6 gm] 2 puff IH DAILYP PRN 11/17/18 Furosemide [Lasix 20 mg Tablet] 20 mg PO DAILY 11/17/18 Ipratropium/Albuterol Sulfate [Duoneb 3 ml Ampul] 3 ml NEB RTQ4HP PRN 11/17/18 Albuterol Sulfate [Ventolin 0.083% Neb 2.5 mg/3 mL Ampul] 1 vial NEB RTQ6HP PRN #90 vial.neb 11/24/18 Prednisone 10 mg PO DAILY 6 Days tablet 11/24/18 History of Present Illness Patient complains of: None History of Present Illness: MANI FLYNN is a 68 year old male who presented to the ER on 11/16/2018 with a history of chronic rotatory failure and COPD on 4 L nasal cannula home oxygen and trilogy use. Patient presented with shortness of breath and wheezing was found to have a COPD exacerbation. Patient was at his baseline apparently the day before being admitted. Patient had no fevers or chills at that time but did have a nonproductive cough. Patient's had multiple admissions for the same situation. Patient was admitted to [facility], treated with steroids, nebulizers and protocol for EtOH withdrawal. At this time patient is improved sufficiently to to return home as he is able to talk in full sentences and continues to progress well. Patient was seen by Dr. Mcdaniel yesterday in consultation and he is in agreement with patient's plan of care. Outpatient follow-up with his primary care practitioner next week and with Dr. Mcdaniel as needed. I will send patient home on albuterol nebs every 4 hours as needed as well as a prednisone Dosepak. Patient requires no antibiotics as he finished a full course in the hospital. Hospital Course Hospital Course: MANI FLYNN is a 68 year old male who presented to the ER on 11/16/2018 with a history of chronic rotatory failure and COPD on 4 L nasal cannula home oxygen and trilogy use. Patient presented with shortness of breath and wheezing was found to have a COPD exacerbation. Patient was at his baseline apparently the day before being admitted. Patient had no fevers or chills at that time but did have a nonproductive cough. Patient's had multiple admissions for the same situation. Patient was admitted to [facility], treated with steroids, nebulizers and protocol for EtOH withdrawal. At this time patient is improved sufficiently to to return home as he is able to talk in full sentences and continues to progress well. Patient was seen by Dr. Mcdaniel yesterday in consultation and he is in agreement with patient's plan of care. Outpatient follow-up with his primary care practitioner next week and with Dr. Mcdaniel as needed. I will send patient home on albuterol nebs every 4 hours as needed as well as a prednisone Dosepak. Patient requires no antibiotics as he finished a full course in t Physical Exam Vital Signs: Temp Pulse Resp BP Pulse Ox 97.5 F 85 18 118/82 92 11/24/18 03:27 11/24/18 08:04 11/24/18 08:04 11/24/18 03:27 11/24/18 08:04 Intake & Output 11/23/18 11/24/18 11/25/18 06:59 06:59 06:59 Intake Total 2388 1498 240 Output Total 825 Balance 2388 673 240 Weight 97.6 kg 93.9 kg General appearance: PRESENT: no acute distress, well-developed, well-nourished Head exam: PRESENT: atraumatic, normocephalic Eye exam: PRESENT: conjunctiva pink, EOMI, PERRLA. ABSENT: scleral icterus Ear exam: PRESENT: normal external ear exam Mouth exam: PRESENT: moist, tongue midline Neck exam: ABSENT: carotid bruit, JVD, lymphadenopathy, thyromegaly Respiratory exam: PRESENT: clear to auscultation abimbola, decreased breath sounds Cardiovascular exam: PRESENT: RRR. ABSENT: diastolic murmur, rubs, systolic murmur Pulses: PRESENT: normal dorsalis pedis pul Vascular exam: PRESENT: normal capillary refill GI/Abdominal exam: PRESENT: normal bowel sounds, soft. ABSENT: distended, guarding, mass, organolmegaly, rebound, tenderness Rectal exam: PRESENT: deferred Extremities exam: PRESENT: full ROM. ABSENT: calf tenderness, clubbing, pedal edema Neurological exam: PRESENT: alert, awake, oriented to person, oriented to place, oriented to time, oriented to situation, CN II-XII grossly intact. ABSENT: motor sensory deficit Psychiatric exam: PRESENT: appropriate affect, normal mood. ABSENT: homicidal ideation, suicidal ideation Skin exam: PRESENT: dry, intact, warm. ABSENT: cyanosis, rash Results Laboratory Results: 11/24/18 04:16 11/24/18 04:16 11/24/18 11/24/18 04:16 04:16 WBC 16.6 H RBC 4.60 Hgb 14.2 Hct 42.8 MCV 93 MCH 30.7 MCHC 33.1 RDW 14.7 H Plt Count 134 L Sodium 136.1 L Potassium 4.2 Chloride 98 Carbon Dioxide 30 Anion Gap 8 BUN 22 H Creatinine 0.90 Est GFR ( Amer) > 60 Est GFR (Non-Af Amer) > 60 Glucose 162 H Calcium 9.0 11/16/18 11/18/18 12:18 05:22 Troponin I < 0.012 NT-Pro-B Natriuret Pep 36 63 Impressions: Chest/Abdomen CTA 11/16/18 12:26 IMPRESSION: NORMAL CTA OF THE CHEST. NO PULMONARY EMBOLI. Chest X-Ray 11/21/18 00:00 IMPRESSION: Minimal left basilar atelectasis unchanged from prior studies Qualifiers - * PATIENT BEING DISCHARGED WITH ANY OF THE FOLLOWING DIAGNOSIS: No Acute Heart Failure - Is this a Heart Failure Patient?: No Plan Time Spent: Greater than 30 Minutes
[2018-11-24 12:53] VITALS: BP 117/63
== END 2018-11-24 14:02 | disposition home health service (06) | DRG 189 ==
LOC: ER 12:15 → EH 13:44 → INTOOBSV 13:44 → 3N 15:15 → OBSVTOIN 11-17 16:02
PROVIDERS: ADMIT Internal Medicine; ATTEND Internal Medicine
PROC: 5A09557 Assistance with Respiratory Ventilation, Greater than 96 Consecutive Hours, Continuous Positive Airway Pressure (ICD-10-PCS; principal; 2018-11-16)
DX: J96.22 Acute and chronic respiratory failure with hypercapnia (principal); J44.1 Chronic obstructive pulmonary disease with (acute) exacerbation; F10.239 Alcohol dependence with withdrawal, unspecified; E78.5 Hyperlipidemia, unspecified; G47.30 Sleep apnea, unspecified; K21.9 Gastro-esophageal reflux disease without esophagitis; K44.9 Diaphragmatic hernia without obstruction or gangrene; F90.9 Attention-deficit hyperactivity disorder, unspecified type; F31.9 Bipolar disorder, unspecified; F17.210 Nicotine dependence, cigarettes, uncomplicated; M79.605 Pain in left leg; M79.604 Pain in right leg; E78.00 Pure hypercholesterolemia, unspecified; Z99.81 Dependence on supplemental oxygen; Z85.51 Personal history of malignant neoplasm of bladder
CPT/HCPCS: 36415; 71045; 71275; 80048; 80053; 82607; 82746; 82803; 83735; 83880; 84484; 85025; 85027; 87040; 93005; 93010; 93925; 94660; 94799; G0378; J0456; J1644; J2060; J2920; J2930; J3475; J3490; J7030; J7060; J7512; J7620